=== PATIENT | male | born 1950 | race Caucasian/White ===

== ENCOUNTER 2018-05-27 07:36 | Inpatient (IN) | payer MEDICARE, MEDICAID ==
[~2018-05-27] VITALS: Ht 167.6 cm; Wt 98.7 kg
--- NOTE | 2018-05-27 07:30 | NUR ---
RESPIRATORY NOTE: Received pt from ER with trach dependent cuff, Protex size 7.0, vent settings: AC 10-500ml-40% FiO2, peep 5. Pt is tolerating well, saturates at 100%. Jamey rhonchi diminished B/S heard upon auscultation, sxn moderate amount of thick rodrigeuz yellow secretions without incidents. ABG in 30 mins. Vent is plugged into the red outlet, alarms are set and audible. No SOB or resp distress noted. Will continue to monitor pt.
[2018-05-27] MEDS ORDERED: LISINOPRIL20 MG GT (07:52)
[2018-05-27] MEDS ORDERED: VITAMIN D400 INTLU GT (07:52)
[2018-05-27] MEDS ORDERED: KEPPRA LIQ100 MG/1 M GT (07:52)
[2018-05-27] MEDS ORDERED: FERROUS SU15 MG/1 M1 GT (07:52)
[2018-05-27] MEDS ORDERED: PRO-STAT LIQUID30 ML GT (07:52)
[2018-05-27] MEDS ORDERED: MULTI-VITAMIN-1 EACH GT (07:52)
[2018-05-27] MEDS ORDERED: CLONIDINE HCL0.1 MG PO ×2 (07:52→16:23)
[2018-05-27] MEDS ORDERED: TYLENOL EXTRA500 MG ORAL (07:52)
[2018-05-27] MEDS ORDERED: VALPROIC A250 MG/5 M PO (07:52)
[2018-05-27] MEDS ORDERED: ATORVASTATIN CA20 MG GT (07:52)
[2018-05-27] MEDS ORDERED: VENTOLIN HFA18 GM INH (07:52)
[2018-05-27] MEDS ORDERED: FAMOTIDINE10 MG GT (07:52)
[2018-05-27] MEDS ORDERED: ASPIRIN-LOW81 MG ORAL (07:52)
[2018-05-27] MEDS ORDERED: SENNA8.6 M2 GT (07:52)
[2018-05-27] MEDS ORDERED: ZOFRAN4 M1 IM (07:52)
[2018-05-27] MEDS ORDERED: BACLOFEN5 MG GT (07:52)
[2018-05-27] MEDS ORDERED: FERROUS SULFAT500 G1 MC (07:52)
[2018-05-27] MEDS ORDERED: METFORMIN500 MG/5 M GT (07:52)
[2018-05-27] MEDS ORDERED: COLACE100 MG GT (07:52)
[2018-05-27] MEDS ORDERED: VITAMIN C500 M1 GT (07:52)
[2018-05-27] MEDS ORDERED: Acetaminophen 650mg/20.3ml GT PRN (08:00)
[2018-05-27] MEDS ORDERED: Albuterol ud Inhalation HHN ONE (08:00)
[2018-05-27] MEDS ORDERED: Piperacillin/Tazobactam 3.375 GM in NS 110 ML IVPB ONE (08:00)
[2018-05-27] MEDS ORDERED: Vancomycin 1 GM in NS 275 ML IV ONE (08:00)
[2018-05-27] MEDS ORDERED: Ipratropium 0.02% Inh Soln 2.5ml UD HHN ONE (08:00)
--- NOTE | 2018-05-27 08:00 | NUR ---
ED Nurse Note: Patient was brought in to ER by ambulance from [facility] due to hyperglycemia. pt non verbal and mental status unable to assess. Treach Portex 7.0 present. responds to severe pain only. skin pale and warm to touch and rectal temperture 103F.
[2018-05-27 08:10] LABS: HEMOGLOBIN 8.7 G/DL (14.2-18.0); MEAN CORPUSCULAR VOLUME 72 FL (80-99); PLATELET COUNT 294 K/UL (150-450); RED BLOOD COUNT 3.87 M/UL (4.70-6.10); RED CELL DISTRIBUTION WIDTH 17.3 % (11.6-14.8); WHITE BLOOD COUNT 19.8 K/UL (4.8-10.8)
--- NOTE | 2018-05-27 08:10 | NUR ---
ED Nurse Note: Pt has G-tube. Rt fingers have deformity. general body contracted noted.
--- NOTE | 2018-05-27 08:20 | NUR ---
ED Nurse Note: distended abdomen noted. bowel sound present on all quadrants.
[2018-05-27 08:23] LABS: ANION GAP 11 mmol/L (5-15); BLOOD UREA NITROGEN 28 mg/dL (7-18); CARBON DIOXIDE 27 MMOL/L (21-32); CHLORIDE 105 MMOL/L (98-107); CREATININE 1.3 MG/DL (0.55-1.30); SODIUM 143 MMOL/L (136-145)
--- NOTE | 2018-05-27 08:28 | Emergency Room Report ---
History of Present Illness General Chief Complaint: Abnormal Labs Source: EMS Present Illness HPI Patient presents to the emergency department today with elevated temperature and elevated glucose. Patient is full code. Patient is ventilator dependent G- tube dependent. This line mental status is poor bedridden and unable to communicate. Patient has a tracheostomy and feeding tube. Patient was noted to have a fever of 103. Glucose was critically high. Patient's prior further evaluation. Apparently patient was recently treated for UTI with Rocephin. Patient last laboratory results shows a fairly elevated white blood cell count. Paramedics are unable to provide much more history. All the history was essentially obtained from medical records. Patient's primary care physician is Dr[facility] at the shelter. No further history is available at this time. Allergies: Coded Allergies: No Known Allergies (Unverified , 05/27/18) Patient History Past Medical History: DM, HTN, CVA/TIA - Likely given contractures, other - Ventilator dependent andTube feedings Past Surgical History: other - G-tube Social History Narrative at shelter Nursing Documentation-PMH Hx Hypertension: Yes - DYSPHAGIA Hx Diabetes: Yes - TYPE 2 Hx Gastrointestinal Problems: Yes - GERD, GI HEMORRHAGE Review of Systems All Other Systems: limited - poor mental status Physical Exam Vital Signs Date Time Temp Pulse Resp B/P (MAP) Pulse Ox O2 Delivery O2 Flow Rate FiO2 05/27/18 07:21 102.9 100 27 140/82 100 Mechanical Ventilator Sp02 EP Interpretation: reviewed, normal General Appearance: alert, moderate distress, Chronically Ill, Stupor Head: atraumatic Eyes: bilateral eye normal inspection ENT: dry mucus membranes Neck: limited range of motion Respiratory: no retraction, respiratory distress, decreased breath sounds, wheezing, expiration, inspiration Cardiovascular #1: regular rate, rhythm, no edema Gastrointestinal: distended, other - g tube, decreased bowel sounds Genitourinary: no CVA tenderness Musculoskeletal: decreased range of motion Neurologic: other - unable to assess Psychiatric: other - unable to assess Skin: warm/dry Procedures Critical Care Time Critical Care Time Patient had a critical medical condition which untreated could potentially result in life or limb threatening injury. Total critical care time excluding procedures was approximately 45 minutes. Medical Decision Making Diagnostic Impression: Primary Impression: Severe sepsis Additional Impression: Pneumonia ER Course Patient presents emergency department today with altered mental status and fever. Patient was recently treated for UTI. Patient appeared to be worse with worsening fever. Patient was sent her for further evaluation. Patient also had elevated glucose. Differential diagnoses include UTI, sepsis, DKA just to name a few.Given the severity of the patient's presentation I felt this is a highly complex patient. This patient required extensive workup. Patient' s laboratory workup shows evidence of infection. Patient's chest x-ray shows questionable pneumonia. Lactic acid level was elevated. Therefore patient was given 30 mL/kg fluid bolus and lactic acid level did improve. Patient symptoms were consistent with severe sepsis. Patient will be admitted for further treatment. Case discussed with Dr. Weaver for admission. Focused sepsis exam was performed.at 12:30. Patient's blood pressure was stable. Good perfusion. Stable cardiopulmonary exam. Good capillary perfusion. Skin is warm and dry. Labs Test 05/27/18 07:57 05/27/18 08:10 05/27/18 08:20 05/27/18 09:20 White Blood Count 19.8 K/UL (4.8-10.8) Red Blood Count 3.87 M/UL (4.70-6.10) Hemoglobin 8.7 G/DL (14.2-18.0) Hematocrit 28.0 % (42.0-52.0) Mean Corpuscular Volume 72 FL (80-99) Mean Corpuscular Hemoglobin 22.4 PG (27.0-31.0) Mean Corpuscular Hemoglobin Concent 31.0 G/DL (32.0-36.0) Red Cell Distribution Width 17.3 % (11.6-14.8) Platelet Count 294 K/UL (150-450) Mean Platelet Volume 6.9 FL (6.5-10.1) Neutrophils (%) (Auto) % (45.0-75.0) Lymphocytes (%) (Auto) % (20.0-45.0) Monocytes (%) (Auto) % (1.0-10.0) Eosinophils (%) (Auto) % (0.0-3.0) Basophils (%) (Auto) % (0.0-2.0) Differential Total Cells Counted 100 Neutrophils % (Manual) 80 % (45-75) Lymphocytes % (Manual) 7 % (20-45) Monocytes % (Manual) 6 % (1-10) Eosinophils % (Manual) 1 % (0-3) Basophils % (Manual) 0 % (0-2) Band Neutrophils 6 % (0-8) Platelet Estimate Adequate Platelet Morphology Normal Polychromasia 1+ Anisocytosis 1+ Microcytosis 1+ Sodium Level 143 MMOL/L (136-145) Potassium Level 3.0 MMOL/L (3.5-5.1) Chloride Level 105 MMOL/L (98-107) Carbon Dioxide Level 27 MMOL/L (21-32) Anion Gap 11 mmol/L (5-15) Blood Urea Nitrogen 28 mg/dL (7-18) Creatinine 1.3 MG/DL (0.55-1.30) Estimat Glomerular Filtration Rate 54.6 mL/min (>60) Glucose Level 465 MG/DL (74-106) Lactic Acid Level 2.60 mmol/L (0.4-2.0) 2.20 mmol/L (0.66-2.22) Calcium Level 9.0 MG/DL (8.5-10.1) Total Bilirubin 0.2 MG/DL (0.2-1.0) Aspartate Amino Transf (AST/SGOT) 16 U/L (15-37) Alanine Aminotransferase (ALT/SGPT) 15 U/L (12-78) Alkaline Phosphatase 80 U/L (46-116) Total Creatine Kinase 63 U/L (26-308) Troponin I 0.145 ng/mL (0.000-0.056) Pro-B-Type Natriuretic Peptide 1512 pg/mL (0-125) Total Protein 7.7 G/DL (6.4-8.2) Albumin 1.8 G/DL (3.4-5.0) Globulin 5.9 g/dL Albumin/Globulin Ratio 0.3 (1.0-2.7) Lipase 203 U/L (73-393) Prothrombin Time 11.5 SEC (9.30-11.50) Prothromb Time International Ratio 1.1 (0.9-1.1) Activated Partial Thromboplast Time 23 SEC (23-33) Arterial Blood pH 7.457 (7.350-7.450) Arterial Blood Partial Pressure CO2 40.7 mmHg (35.0-45.0) Arterial Blood Partial Pressure O2 94.5 mmHg (75.0-100.0) Arterial Blood HCO3 28.1 mmol/L (22.0-26.0) Arterial Blood Oxygen Saturation 96.7 % (95-100) Arterial Blood Base Excess 3.9 (-2-2) Tommy Test Positive Urine Color Pale yellow Urine Appearance Clear Urine pH 6 (4.5-8.0) Urine Specific [place] 1.010 (1.005-1.035) Urine Protein 3+ (NEGATIVE) Urine Glucose (UA) 4+ (NEGATIVE) Urine Ketones 1+ (NEGATIVE) Urine Blood 3+ (NEGATIVE) Urine Nitrite Negative (NEGATIVE) Urine Bilirubin Negative (NEGATIVE) Urine Urobilinogen Normal MG/DL (0.0-1.0) Urine Leukocyte Esterase Negative (NEGATIVE) Urine RBC 10-15 /HPF (0 - 0) Urine WBC 0-2 /HPF (0 - 0) Urine Squamous Epithelial Cells Occasional /LPF Urine Bacteria Occasional /HPF (NONE) EKG Diagnostic Results Rate: normal Rhythm: NSR ST Segments: no acute changes Rhythm Strip Diag. Results EP Interpretation: yes Rate: 85 Rhythm: NSR, no PVC's, no ectopy Chest X-Ray Diagnostic Results Chest X-Ray Diagnostic Results : Chest X-Ray Ordered: Yes Indication: Shortness of Breath EP Interpretation: No Impression: Other - Pneumonia Last Vital Signs Date Time Temp Pulse Resp B/P (MAP) Pulse Ox O2 Delivery O2 Flow Rate FiO2 05/27/18 07:21 102.9 100 27 140/82 100 Mechanical Ventilator Status: improved Disposition: ADMITTED INPATIENT Condition: Serious Referrals: Janette Weaver MD (PCP) Campos Gomez MD May 27, 2018 08:28
--- NOTE | 2018-05-27 08:30 | NUR ---
ED Nurse Note: Redness on coccyx and Rt lateral foot noted. Pt has 1 Medium BM and it was cleaned.
[2018-05-27 08:33] LABS: INR 1.1 (0.9-1.1)
[2018-05-27 08:37] LABS: ALANINE AMINOTRANSFERASE 15 U/L (12-78); ALBUMIN 1.8 G/DL (3.4-5.0); ALBUMIN/GLOBULIN RATIO 0.3 (1.0-2.7); ALKALINE PHOSPHATASE 80 U/L (46-116); ASPARTATE AMINO TRANSFERASE 16 U/L (15-37); BILIRUBIN,TOTAL 0.2 MG/DL (0.2-1.0); CREATINE KINASE 63 U/L (26-308)
[2018-05-27 09:30] LABS: APPEARANCE,URINE CLEAR; BILIRUBIN, URINE NEGATIVE (NEGATIVE); COLOR,URINE PALE YELLOW; GLUCOSE, URINE (UA) 4+ (NEGATIVE); KETONES,URINE 1+ (NEGATIVE); LEUKOCYTE ESTERASE ,URINE NEGATIVE (NEGATIVE); NITRITE,URINE NEGATIVE (NEGATIVE); PH,URINE 6 (4.5-8.0); PROTEIN,URINE 3+ (NEGATIVE); UROBILINOGEN,URINE NORMAL MG/DL (0.0-1.0)
--- NOTE | 2018-05-27 10:05 | Diagnostic Imaging Report ---
Indication: Cough, dyspnea Technique: One view of the chest Comparison: none Findings: There is a left-sided pleural effusion. Diffuse hazy opacification of left hemithorax is likely related to such, although diffuse hazy infiltrate also possible. The right lung and pleural space are clear. Heart is mildly enlarged. The aorta is ectatic Impression: Left pleural effusion and possible left-sided diffuse parenchymal consolidation Mild cardiomegaly
--- NOTE | 2018-05-27 10:35 | NUR ---
RESPIRATORY NOTE: Trach care and oral care done without incident, changed new trach tie and trach guard. Noticed redness and small blood around the stoma, RN Olaf made aware. Pt is not in distress at this time. Will continue to monitor.
[2018-05-27 11:12] VITALS: BP 137/70
--- NOTE | 2018-05-27 12:03 | NUR ---
ED Nurse Note: Report given to MELISA Fischer.
--- NOTE | 2018-05-27 12:10 | NUR ---
ED Nurse Note: pt left department with 1 RN, 1 therapy tech, 1 RT in stable condition.
--- NOTE | 2018-05-27 12:20 | NUR ---
RESPIRATORY NOTE: Transferred pt to [facility] via bagging with ambu bag 15L 100% per MELISA Babin without incidents. Pt put back to vent with the same settings, no SOB or resp distress noted. Inform MELISA Fischer about the redness and small blood around the stoma. Ambu bag is at bedside, vent is plugged into the red outlet and alarms are set and audible. Will continue to monitor pt.
--- NOTE | 2018-05-27 12:21 | NUR ---
NURSE NOTES: Received patient from MELISA Donald. Patient VS stable at this time. Patient admitted to ER with fever of 103. Tylenol given in ER. Temperature not 98.9. BP 144/83, HR 86, 98%, and RR 20. Serum glucose 465. No coverage given in ER. Potassium 3.0. No coverage given in ER. Patient is nonverbal and nonresponsive. patient eyes open and does not track. Patient trach to ventilator with setting of AC10, TV 500, FiO2 40%, and PEEP 5. Patient's trach is reddened with slight bleeding and discharge that is yellow/green at this time. Oral and tracheal secretions are yellow/green at this time. Patient's urine was collected in ER and it was cloudy with bacteria. Patient has several pressure injuries. Patient has a right ankle DTI, left ankle and left lower leg stage 1, sacral old wound that is healed, and left elbow DTI. Patient has a lactic of 2.2. No repeat lab has been done since 0930 this morning. Will monitor patient VS and administer medications as ordered. Bed in low position with bed alarm on and call light in reach at this time.
--- NOTE | 2018-05-27 13:14 | Consultation ---
History of Present Illness General Date patient seen: May 27, 2018 Chief Complaint: Abnormal Labs Present Illness HPI 77 year old male with hx of DM, HTN, CVA, contractures, trach, Ventilator dependent and Tube feedings presented to ER with CC of elevated temperature and elevated glucose. Patient is full code. He is bedridden and unable to communicate. Patient was noted to have a fever of 103. Glucose was critically high. All the history was essentially obtained from medical records. He was found to have Left lung pneumonia and sepsis. Pt is admitted to [facility] for further evaluation and treatment. Allergies: Coded Allergies: No Known Allergies (Unverified , 05/27/18) Medication History Scheduled Amino Acids/Protein Hydrolys (Pro-Stat Liquid), 30 ML GT TWICE A DAY, (Reported) Ascorbic Acid* (Vitamin C*), 500 MG GT DAILY, (Reported) Aspirin (Aspirin EC), 81 MG ORAL DAILY, (Reported) Atorvastatin Calcium* (Atorvastatin Calcium*), 20 MG GT BEDTIME, (Reported) Docusate Sodium* (Colace*), 100 MG GT DAILY, (Reported) Famotidine (Famotidine), 20 MG ORAL QHS, (Reported) Ferrous Sulfate* (Ferrous Sulfate*), 325 MG ORAL DAILY, (Reported) Levetiracetam (Keppra), 15 ML GT DAILY, (Reported) Linagliptin (Tradjenta), 5 MG PO DAILY, (Reported) Lisinopril (Lisinopril*), 40 MG GT DAILY, (Reported) Metformin Hcl (Metformin Hcl), 1,000 MG MC BID, (Reported) Multivitamin Liquid* (Multi-Delyn*), 5 ML GT DAILY, (Reported) Sennosides/Docusate Sodium (Senna S Tablet), 2 EACH PO QHS, (Reported) Theophylline Anhydrous (Theophylline), 300 MG GT DAILY, (Reported) Topiramate* (Topamax*), 200 MG GT BID, (Reported) Valproic Acid (Valproic Acid), 10 ML GT TID, (Reported) Vitamin D (Vitamin D3), 5,000 UNITS GT DAILY, (Reported) Scheduled PRN Acetaminophen* (Acetaminophen 325MG Tablet*), 650 MG ORAL Q4H PRN for fever and mild pain , (Reported) Clonidine Hcl (Clonidine Hcl), 0.1 MG PO for For High Blood Pressure, (Reported) Ondansetron* (Zofran*), 4 MG IM Q4HR PRN for Nausea & Vomiting, (Reported) Miscellaneous Medications Baclofen (Baclofen), 20 MG GT, (Reported) Discontinued Medications Acetaminophen* (Tylenol Extra Strength*), 650 MG ORAL Q6H PRN for Mild Pain/ Temp > 100.5, (Reported) Discontinued Reason: Medication dose changed Albuterol Sulfate (Ventolin Hfa), 2 PUFFS INH EVERY 6 HOURS, (Reported) Discontinued Reason: Medication dose changed Clonidine Hcl (Clonidine Hcl), 0.1 MG PO, (Reported) Discontinued Reason: Medication dose changed Famotidine (Famotidine), 2.5 MG GT DAILY, (Reported) Discontinued Reason: Medication dose changed Ferrous Sulfate (Ferrous Sulfate), 7.5 ML GT, (Reported) Discontinued Reason: Medication dose changed Ferrous Sulfate, Dried (Ferrous Sulfate), 500 GM MC, (Reported) Discontinued Reason: Medication dose changed Metformin HCl (Metformin HCl), 1,000 MG GT, (Reported) Discontinued Reason: Medication dose changed Multivit-Min/Iron Fum/Folic AC (Lqlbo-Dpqyxtq-Shznudhg Tablet), 1 EACH GT, ( Reported) Discontinued Reason: Medication dose changed Ondansetron (Zofran), 4 MG IM Q6H PRN for Nausea & Vomiting, (Reported) Discontinued Reason: Medication dose changed Sennosides (Senna), 2 MG GT, (Reported) Discontinued Reason: Medication dose changed Sennosides (Senna), 2 MG GT, (Reported) Discontinued Reason: Medication dose changed Valproate Sodium (Valproic Acid), 10 ML PO, (Reported) Discontinued Reason: Medication dose changed Patient History Healthcare decision maker Resuscitation status Advanced Directive on File Past Medical/Surgical History Past Medical/Surgical History: (1) Diabetes mellitus (2) Vegetative state (3) Cerebrovascular accident (CVA) (4) Contracture of joint of multiple sites (5) Chronic respiratory failure Review of Systems All Other Systems: negative except mentioned in HPI Physical Exam General Appearance: cachetic Lines, tubes and drains: peripheral HEENT: normocephalic, atraumatic Neck: non-tender, normal alignment Respiratory/Chest: chest wall non-tender, normal breath sounds Breasts: no masses Cardiovascular/Chest: regularly irregular Abdomen: normal bowel sounds Genitourinary/Rectal: normal genital exam Extremities: normal range of motion Last 24 Hour Vital Signs Date Time Temp Pulse Resp B/P (MAP) Pulse Ox O2 Delivery O2 Flow Rate FiO2 05/27/18 12:20 86 17 40 05/27/18 12:05 100.0 05/27/18 11:12 82 14 137/70 98 Mechanical Ventilator 40 05/27/18 11:06 40 05/27/18 10:35 82 17 40 05/27/18 09:14 101.0 05/27/18 08:45 97 21 40 05/27/18 08:24 100 19 98 Mechanical Ventilator 40 05/27/18 08:00 98 19 Mechanical Ventilator 40 05/27/18 08:00 40 05/27/18 07:30 103 20 40 05/27/18 07:29 103 20 Mechanical Ventilator 40 05/27/18 07:21 102.9 100 27 140/82 100 Mechanical Ventilator Laboratory Tests Test 05/27/18 07:57 05/27/18 08:10 05/27/18 08:20 05/27/18 09:20 White Blood Count 19.8 K/UL (4.8-10.8) H Red Blood Count 3.87 M/UL (4.70-6.10) L Hemoglobin 8.7 G/DL (14.2-18.0) L Hematocrit 28.0 % (42.0-52.0) L Mean Corpuscular Volume 72 FL (80-99) L Mean Corpuscular Hemoglobin 22.4 PG (27.0-31.0) L Mean Corpuscular Hemoglobin Concent 31.0 G/DL (32.0-36.0) L Red Cell Distribution Width 17.3 % (11.6-14.8) H Platelet Count 294 K/UL (150-450) Mean Platelet Volume 6.9 FL (6.5-10.1) Neutrophils (%) (Auto) % (45.0-75.0) Lymphocytes (%) (Auto) % (20.0-45.0) Monocytes (%) (Auto) % (1.0-10.0) Eosinophils (%) (Auto) % (0.0-3.0) Basophils (%) (Auto) % (0.0-2.0) Differential Total Cells Counted 100 Neutrophils % (Manual) 80 % (45-75) H Lymphocytes % (Manual) 7 % (20-45) L Monocytes % (Manual) 6 % (1-10) Eosinophils % (Manual) 1 % (0-3) Basophils % (Manual) 0 % (0-2) Band Neutrophils 6 % (0-8) Platelet Estimate Adequate Platelet Morphology Normal Polychromasia 1+ Anisocytosis 1+ Microcytosis 1+ Sodium Level 143 MMOL/L (136-145) Potassium Level 3.0 MMOL/L (3.5-5.1) L Chloride Level 105 MMOL/L (98-107) Carbon Dioxide Level 27 MMOL/L (21-32) Anion Gap 11 mmol/L (5-15) Blood Urea Nitrogen 28 mg/dL (7-18) H Creatinine 1.3 MG/DL (0.55-1.30) Estimat Glomerular Filtration Rate 54.6 mL/min (>60) Glucose Level 465 MG/DL (74-106) H Lactic Acid Level 2.60 mmol/L (0.4-2.0) H 2.20 mmol/L (0.66-2.22) Calcium Level 9.0 MG/DL (8.5-10.1) Total Bilirubin 0.2 MG/DL (0.2-1.0) Aspartate Amino Transf (AST/SGOT) 16 U/L (15-37) Alanine Aminotransferase (ALT/SGPT) 15 U/L (12-78) Alkaline Phosphatase 80 U/L (46-116) Total Creatine Kinase 63 U/L (26-308) Troponin I 0.145 ng/mL (0.000-0.056) Pro-B-Type Natriuretic Peptide 1512 pg/mL (0-125) H Total Protein 7.7 G/DL (6.4-8.2) Albumin 1.8 G/DL (3.4-5.0) L Globulin 5.9 g/dL Albumin/Globulin Ratio 0.3 (1.0-2.7) L Lipase 203 U/L (73-393) Prothrombin Time 11.5 SEC (9.30-11.50) Prothromb Time International Ratio 1.1 (0.9-1.1) Activated Partial Thromboplast Time 23 SEC (23-33) Arterial Blood pH 7.457 (7.350-7.450) Arterial Blood Partial Pressure CO2 40.7 mmHg (35.0-45.0) Arterial Blood Partial Pressure O2 94.5 mmHg (75.0-100.0) Arterial Blood HCO3 28.1 mmol/L (22.0-26.0) H Arterial Blood Oxygen Saturation 96.7 % (95-100) Arterial Blood Base Excess 3.9 (-2-2) H Tommy Test Positive Urine Color Pale yellow Urine Appearance Clear Urine pH 6 (4.5-8.0) Urine Specific Royal 1.010 (1.005-1.035) Urine Protein 3+ (NEGATIVE) H Urine Glucose (UA) 4+ (NEGATIVE) H Urine Ketones 1+ (NEGATIVE) H Urine Blood 3+ (NEGATIVE) H Urine Nitrite Negative (NEGATIVE) Urine Bilirubin Negative (NEGATIVE) Urine Urobilinogen Normal MG/DL (0.0-1.0) Urine Leukocyte Esterase Negative (NEGATIVE) Urine RBC 10-15 /HPF (0 - 0) H Urine WBC 0-2 /HPF (0 - 0) Urine Squamous Epithelial Cells Occasional /LPF Urine Bacteria Occasional /HPF (NONE) Height (Feet): 5 Height (Inches): 6.00 Weight (Pounds): 155 Medications Current Medications Medications (Trade) Dose Ordered Sig/Bhupinder Route PRN Reason Start Time Stop Time Status Last Admin Dose Admin Acetaminophen (Tylenol) 1,000 mg STAT PRN GT Mild Pain/Temp > 100.5 05/27/18 08:00 06/26/18 07:59 05/27/18 08:44 Assessment/Plan Problem List: (1) Acute on chronic respiratory failure ICD Codes: J96.20 - Acute and chronic respiratory failure, unspecified whether with hypoxia or hypercapnia SNOMED: 08809118 (2) Nosocomial pneumonia ICD Codes: J18.9 - Pneumonia, unspecified organism; Y95 - Nosocomial condition SNOMED: 767307313 (3) Chronic respiratory failure ICD Codes: J96.10 - Chronic respiratory failure, unspecified whether with hypoxia or hypercapnia SNOMED: 56006587 (4) Severe sepsis ICD Codes: A41.9 - Sepsis, unspecified organism; R65.20 - Severe sepsis without septic shock SNOMED: 57206207 (5) Pneumonia ICD Codes: J18.9 - Pneumonia, unspecified organism SNOMED: 627865411 (6) Cerebrovascular accident (CVA) ICD Codes: I63.9 - Cerebral infarction, unspecified SNOMED: 788620189 (7) Vegetative state ICD Codes: R40.3 - Persistent vegetative state SNOMED: 27175180 (8) Contracture of joint of multiple sites ICD Codes: M24.50 - Contracture, unspecified joint SNOMED: 23335051, 037088864 (9) Diabetes mellitus ICD Codes: E11.9 - Type 2 diabetes mellitus without complications SNOMED: 24411956 Respiratory: monitor respiratory rate, adjust FIO2, CXR Cardiac: continue pressors, continue to monitor HR/BP Renal: F/U I&O, keep IV fluid Infectious Disease: check cultures Gastrointestinal: continue feedings/current rate Endocrine: monitor blood sugar Hematologic: monitor H/H, transfuse if hgb<8.5 Neurologic: PRN Morphine, keep patient comfortable Affect: PRN ativan Prophylaxis: Heparin Discussed with: nurses, consultants, director case management Yomi Odom MD May 27, 2018 13:14
[2018-05-27] MEDS ORDERED: Ketorolac 30mg Inj IV PRN (13:15)
[2018-05-27] MEDS ORDERED: Miralax 17gm pkt GT PRN (13:15)
[2018-05-27] MEDS ORDERED: Mylanta II UD 30ml GT PRN (13:15)
[2018-05-27] MEDS ORDERED: Albuterol/Ipratropium 3ml neb HHN PRN (13:15)
[2018-05-27] MEDS ORDERED: Morphine Sulfate 2mg/ml Inj(IV/IM USE ONLY) IVP PRN (13:15)
[2018-05-27] MEDS ORDERED: Nitroglycerin Subl 0.4mg tab SL PRN (13:15)
[2018-05-27 16:00] VITALS: BP 144/83
[2018-05-27] MEDS ORDERED: SENNA S TABLET1 EAC1 PO (16:23)
[2018-05-27] MEDS ORDERED: FERROUS SULFAT325 MG ORAL (16:23)
[2018-05-27] MEDS ORDERED: MULTI-DELYN237 ML GT (16:23)
[2018-05-27] MEDS ORDERED: VALPROIC ACID1 ML GT (16:23)
[2018-05-27] MEDS ORDERED: METFORMIN HCL5000 GM MC (16:23)
[2018-05-27] MEDS ORDERED: ZOFRAN4 M3 IM (16:23)
[2018-05-27] MEDS ORDERED: THEOPHYLLI80 MG/151 GT (16:23)
[2018-05-27] MEDS ORDERED: TOPIRAMATE100 MG GT (16:23)
[2018-05-27] MEDS ORDERED: ACETAMINOPHEN325 M1 ORAL (16:23)
[2018-05-27] MEDS ORDERED: TRADJENTA5 MG PO (16:23)
[2018-05-27] MEDS ORDERED: FAMOTIDINE20 MG ORAL (16:23)
[2018-05-27] MEDS ORDERED: NovoLOG Insulin Flexpen SUBQ SCH (16:30)
[2018-05-27] MEDS: Acetaminophen 650mg/20.3ml GT PRN (16:45)
[2018-05-27] MEDS: NovoLOG Insulin Flexpen SUBQ SCH ×2 (18:31→21:35)
--- NOTE | 2018-05-27 19:10 | NUR ---
HAND-OFF: Report given to MELISA Choi. Patient temperature elevated at this time. Tylenol has been given. Cooling blanket placed under the patient. Temperature is still elevated. Endorsed to follow up. Patient does not have an order for antibiotics at this time. Endorsed to follow up with Dr Weaver when he rounds on the patient.
--- NOTE | 2018-05-27 19:10 | NUR ---
NURSE NOTES: Received report from Jax Gates RN. Patient is awake in bed, obtunded. Sinus rhythm on nurse monitoring. No s/s of acute distress noted. Saturating well on tach-vent settings: Portex 7, AC 10, vT 500, FiO2 40%, PEEP 5. Receiving Glucerna 1.2 @ 10 cc/hr and tolerating well, goal of 65 cc/hr. Condom catheter intact and draining well. Left wrist 22g IV, intact and patent, running NS @ 100 cc/hr. Bed locked in lowest position with padded side rails up x3. Call light left within reach. Will continue to monitor.
[2018-05-27 20:00] VITALS: BP 153/92
[2018-05-27] MEDS: Heparin 5000 units/ml inj SUBQ SCH (21:36)
[2018-05-27] MEDS ORDERED: Piperacillin/Tazobactam 3.375 GM in NS 110 ML IVPB SCH (22:00)
[2018-05-27] MEDS ORDERED: Vancomycin 750mg/NS 275ml IVPB ONE ×2 (23:00)
[2018-05-28] VITALS: BP 129/69
--- NOTE | 2018-05-28 00:05 | Infectious Diseases Prog Note ---
Assessment/Plan Assessment/Plan Full consult to follow: A) 1) sepsis, aspiration pna/hcap, leukocytosis, fevers, sirs 2) pmh noted 3) allergies - nkda P) 1) zosyn and vancomycin 2) check cultures, labs and chest x-ray 3) d/w Dr. Weaver 4) thank you Subjective Allergies: Coded Allergies: No Known Allergies (Unverified , 05/27/18) Objective Vital Signs Last 24 Hour Vital Signs Date Time Temp Pulse Resp B/P (MAP) Pulse Ox O2 Delivery O2 Flow Rate FiO2 05/27/18 22:37 82 22 40 05/27/18 21:45 97.3 05/27/18 21:33 153/92 05/27/18 21:00 Mechanical Ventilator 05/27/18 20:36 89 20 40 05/27/18 20:00 102.3 94 20 153/92 (112) 99 05/27/18 20:00 40 05/27/18 19:01 92 05/27/18 19:00 90 20 40 05/27/18 17:19 Mechanical Ventilator 05/27/18 17:15 102.0 05/27/18 17:09 87 23 40 05/27/18 16:00 81 05/27/18 16:00 101.4 86 20 144/83 (103) 98 05/27/18 16:00 Mechanical Ventilator 05/27/18 14:51 77 17 40 05/27/18 12:52 73 05/27/18 12:20 86 17 40 05/27/18 12:10 100.0 90 14 141/65 100 Mechanical Ventilator 40 05/27/18 12:05 100.0 05/27/18 11:12 82 14 137/70 98 Mechanical Ventilator 40 05/27/18 11:06 40 05/27/18 10:35 82 17 40 05/27/18 09:14 101.0 05/27/18 08:45 97 21 40 05/27/18 08:24 100 19 98 Mechanical Ventilator 40 05/27/18 08:00 98 19 Mechanical Ventilator 40 05/27/18 08:00 40 05/27/18 07:30 103 20 40 05/27/18 07:29 103 20 Mechanical Ventilator 40 05/27/18 07:21 102.9 100 27 140/82 100 Mechanical Ventilator Height (Feet): 5 Height (Inches): 6.00 Weight (Pounds): 175 Laboratory Tests Test 05/27/18 07:57 05/27/18 08:10 05/27/18 08:20 05/27/18 09:20 White Blood Count 19.8 K/UL (4.8-10.8) H Red Blood Count 3.87 M/UL (4.70-6.10) L Hemoglobin 8.7 G/DL (14.2-18.0) L Hematocrit 28.0 % (42.0-52.0) L Mean Corpuscular Volume 72 FL (80-99) L Mean Corpuscular Hemoglobin 22.4 PG (27.0-31.0) L Mean Corpuscular Hemoglobin Concent 31.0 G/DL (32.0-36.0) L Red Cell Distribution Width 17.3 % (11.6-14.8) H Platelet Count 294 K/UL (150-450) Mean Platelet Volume 6.9 FL (6.5-10.1) Neutrophils (%) (Auto) % (45.0-75.0) Lymphocytes (%) (Auto) % (20.0-45.0) Monocytes (%) (Auto) % (1.0-10.0) Eosinophils (%) (Auto) % (0.0-3.0) Basophils (%) (Auto) % (0.0-2.0) Differential Total Cells Counted 100 Neutrophils % (Manual) 80 % (45-75) H Lymphocytes % (Manual) 7 % (20-45) L Monocytes % (Manual) 6 % (1-10) Eosinophils % (Manual) 1 % (0-3) Basophils % (Manual) 0 % (0-2) Band Neutrophils 6 % (0-8) Platelet Estimate Adequate Platelet Morphology Normal Polychromasia 1+ Anisocytosis 1+ Microcytosis 1+ Sodium Level 143 MMOL/L (136-145) Potassium Level 3.0 MMOL/L (3.5-5.1) L Chloride Level 105 MMOL/L (98-107) Carbon Dioxide Level 27 MMOL/L (21-32) Anion Gap 11 mmol/L (5-15) Blood Urea Nitrogen 28 mg/dL (7-18) H Creatinine 1.3 MG/DL (0.55-1.30) Estimat Glomerular Filtration Rate 54.6 mL/min (>60) Glucose Level 465 MG/DL (74-106) H Lactic Acid Level 2.60 mmol/L (0.4-2.0) H 2.20 mmol/L (0.66-2.22) Calcium Level 9.0 MG/DL (8.5-10.1) Total Bilirubin 0.2 MG/DL (0.2-1.0) Aspartate Amino Transf (AST/SGOT) 16 U/L (15-37) Alanine Aminotransferase (ALT/SGPT) 15 U/L (12-78) Alkaline Phosphatase 80 U/L (46-116) Total Creatine Kinase 63 U/L (26-308) Troponin I 0.145 ng/mL (0.000-0.056) Pro-B-Type Natriuretic Peptide 1512 pg/mL (0-125) H Total Protein 7.7 G/DL (6.4-8.2) Albumin 1.8 G/DL (3.4-5.0) L Globulin 5.9 g/dL Albumin/Globulin Ratio 0.3 (1.0-2.7) L Lipase 203 U/L (73-393) Prothrombin Time 11.5 SEC (9.30-11.50) Prothromb Time International Ratio 1.1 (0.9-1.1) Activated Partial Thromboplast Time 23 SEC (23-33) Arterial Blood pH 7.457 (7.350-7.450) Arterial Blood Partial Pressure CO2 40.7 mmHg (35.0-45.0) Arterial Blood Partial Pressure O2 94.5 mmHg (75.0-100.0) Arterial Blood HCO3 28.1 mmol/L (22.0-26.0) H Arterial Blood Oxygen Saturation 96.7 % (95-100) Arterial Blood Base Excess 3.9 (-2-2) H Tommy Test Positive Urine Color Pale yellow Urine Appearance Clear Urine pH 6 (4.5-8.0) Urine Specific [facility] [place] 1.010 (1.005-1.035) Urine Protein 3+ (NEGATIVE) H Urine Glucose (UA) 4+ (NEGATIVE) H Urine Ketones 1+ (NEGATIVE) H Urine Blood 3+ (NEGATIVE) H Urine Nitrite Negative (NEGATIVE) Urine Bilirubin Negative (NEGATIVE) Urine Urobilinogen Normal MG/DL (0.0-1.0) Urine Leukocyte Esterase Negative (NEGATIVE) Urine RBC 10-15 /HPF (0 - 0) H Urine WBC 0-2 /HPF (0 - 0) Urine Squamous Epithelial Cells Occasional /LPF Urine Bacteria Occasional /HPF (NONE) Current Medications Medications (Trade) Dose Ordered Sig/Bhupinder Route PRN Reason Start Time Stop Time Status Last Admin Dose Admin Acetaminophen (Tylenol) 650 mg Q4H PRN GT fever 05/27/18 13:15 06/26/18 13:14 05/27/18 16:45 Al Hydroxide/Mg Hydroxide (Mylanta II) 30 ml Q6H PRN GT dyspepsia 05/27/18 13:15 06/26/18 13:14 Albuterol/ Ipratropium (Albuterol/ Ipratropium) 3 ml Q4H PRN HHN Shortness of Breath 05/27/18 13:15 06/01/18 13:14 Clonidine HCl (Catapres Tab) 0.1 mg EVERY 12 HOURS GT 05/27/18 21:00 06/26/18 20:59 05/27/18 21:33 Clonidine HCl (Catapres Tab) 0.1 mg Q4H PRN GT sbp more than 160 05/27/18 13:15 06/26/18 13:14 Dextrose (Dextrose 50%) 25 ml Q30M PRN IV Hypoglycemia 05/27/18 13:15 06/26/18 13:14 Dextrose (Dextrose 50%) 50 ml Q30M PRN IV Hypoglycemia 05/27/18 13:15 06/26/18 13:14 Heparin Sodium (Porcine) (Heparin 5000 units/ml) 5,000 units EVERY 12 HOURS SUBQ 05/27/18 21:00 06/26/18 20:59 05/27/18 21:36 Insulin Aspart (NovoLOG) Q4HR SUBQ 05/27/18 18:00 06/26/18 17:59 05/27/18 21:35 Ketorolac Tromethamine (Toradol 30mg) 30 mg Q6H PRN IV moderate pain 4-6 05/27/18 13:15 06/01/18 13:14 Levetiracetam (Keppra) 1,500 mg DAILY GT 05/28/18 09:00 06/27/18 08:59 Morphine Sulfate (Morphine Sulfate) 2 mg Q4H PRN IVP severe pain 7-10 05/27/18 13:15 06/03/18 13:14 Nitroglycerin (Ntg) 0.4 mg Q5M X 3 DOSES PRN SL Prn Chest Pain 05/27/18 13:15 06/26/18 13:14 Ondansetron HCl (Zofran) 4 mg Q6H PRN IVP Nausea & Vomiting 05/27/18 13:15 06/26/18 13:14 Piperacillin Sod/ Tazobactam Sod 3.375 gm/Sodium Chloride 110 ml @ 27.5 mls/hr Q8H IVPB 05/28/18 02:00 06/04/18 01:59 Polyethylene Glycol (Miralax) 17 gm HSPRN PRN GT Constipation 05/27/18 13:15 06/26/18 13:14 Sodium Chloride 1,000 ml @ 100 mls/hr Q10H IVLG 05/27/18 13:12 06/26/18 13:11 05/27/18 23:01 Temazepam (Restoril) 15 mg HSPRN PRN GT Insomnia 05/27/18 13:15 06/03/18 13:14 Vancomycin HCl (Vanco rx to dose) 1 ea DAILY PRN MISC Per rx protocol 05/27/18 21:30 06/26/18 21:29 Vancomycin HCl 750 mg/Sodium Chloride 275 ml @ 183.333 mls/hr ONCE ONCE IVPB 05/27/18 23:00 05/28/18 00:29 05/27/18 22:45 Vancomycin HCl/ Dextrose 275 ml @ 183.333 mls/hr Q24H IVPB 05/28/18 20:00 06/02/18 19:59 Raoul Leigh MD May 28, 2018 00:05
[2018-05-28] MEDS: NovoLOG Insulin Flexpen SUBQ SCH ×6 (00:58→20:28)
[2018-05-28] MEDS: Piperacillin/Tazobactam 3.375 GM in NS 110 ML IVPB SCH ×3 (02:00→18:00)
[2018-05-28 04:00] VITALS: BP 139/77
--- NOTE | 2018-05-28 05:20 | NUR ---
NURSE NOTES: Made Dr. Meg MD aware of patient having 5 beats of vtach for 3 seconds. Currently awaiting response. Vitals WNL. Patient is asymptomatic. Will continue to monitor.
[2018-05-28 05:43] LABS: HEMATOCRIT 24.4 % (42.0-52.0); HEMOGLOBIN 7.3 G/DL (14.2-18.0); MEAN CORPUSCULAR VOLUME 74 FL (80-99); PLATELET COUNT 291 K/UL (150-450); RED CELL DISTRIBUTION WIDTH 17.4 % (11.6-14.8); WHITE BLOOD COUNT 18.5 K/UL (4.8-10.8)
[2018-05-28 06:23] LABS: ALANINE AMINOTRANSFERASE 24 U/L (12-78); ALBUMIN 1.6 G/DL (3.4-5.0); ALBUMIN/GLOBULIN RATIO 0.3 (1.0-2.7); ALKALINE PHOSPHATASE 60 U/L (46-116); ANION GAP 11 mmol/L (5-15); ASPARTATE AMINO TRANSFERASE 26 U/L (15-37); BILIRUBIN,TOTAL 0.1 MG/DL (0.2-1.0); BLOOD UREA NITROGEN 21 mg/dL (7-18); CALCIUM 8.1 MG/DL (8.5-10.1); CARBON DIOXIDE 25 MMOL/L (21-32); CHLORIDE 111 MMOL/L (98-107); CHOLESTEROL 66 MG/DL (< 200); CREATININE 0.8 MG/DL (0.55-1.30); HDL CHOLESTEROL 23 MG/DL (40-60); POTASSIUM 3.2 MMOL/L (3.5-5.1); SODIUM 147 MMOL/L (136-145); TRIGLYCERIDES 126 MG/DL (30-150)
--- NOTE | 2018-05-28 06:34 | NUR ---
NURSE NOTES: Made Dr. Meg MD aware of AM labs. Awaiting response.
--- NOTE | 2018-05-28 07:10 | NUR ---
HAND-OFF: Report given to Jas Romero RN.
[2018-05-28 08:00] VITALS: BP 138/72
[2018-05-28] MEDS: levETIRAcetam 500mg/5ml Liquid GT SCH (08:20)
[2018-05-28] MEDS: Heparin 5000 units/ml inj SUBQ SCH ×2 (08:20→20:26)
--- NOTE | 2018-05-28 09:54 | NUR ---
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 HYPERGLYCEMIA VS: BP 140/82, P 100, T 103.0, RR 27, SpO2 100 on VENT AC 10, TV 500, PEEP 5.0 FiO2 40 WBC 19.8, RBC 3.87, Hgb 8.7, Hct 28.0, Na 147, K 3.2, BUN 28, TROPONIN I 0.145 CXR Impression: Left pleural effusion and possible left-sided diffuse parenchymal consolidation. IS: NOVOLOG SUBQ VANCOMYCIN 275ml IVPB K-DUR 40meq GT ADMITTED TO SDU RETURN TO: [facility]
[2018-05-28] MEDS ORDERED: Lidocaine 1% Plain 30 ml INJ PRN (10:30)
[2018-05-28] MEDS ORDERED: Heparin1,000 units/500ml Premix(Conc:2 units/ml) IV PRN (10:30)
--- NOTE | 2018-05-28 11:17 | Pulmonolgy Critical Care Note ---
Critical Care - Asmt/Plan Problems: (1) Acute on chronic respiratory failure (2) Sepsis (3) Nosocomial pneumonia (4) Severe sepsis (5) Pneumonia (6) Vegetative state (7) Contracture of joint of multiple sites (8) Chronic respiratory failure (9) Diabetes mellitus (10) Cerebrovascular accident (CVA) Respiratory: monitor respiratory rate, adjust FIO2, CXR Cardiac: continue pressors, continue to monitor HR/BP Renal: F/U I&O, check electrolytes Infectious Disease: check cultures, continue antibiotics Gastrointestinal: hold feedings Endocrine: check TSH Hematologic: transfuse if hgb<8.5 Neurologic: PRN Ativan, keep patient comfortable Affect: PRN ativan Prophylaxis: Protonix, Heparin Notes Reviewed: cardio Discussed with: nurses, consultants, 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 - Objective Last 24 Hour Vital Signs Date Time Temp Pulse Resp B/P (MAP) Pulse Ox O2 Delivery O2 Flow Rate FiO2 05/28/18 10:51 82 16 40 05/28/18 09:05 78 18 40 05/28/18 08:25 139/72 05/28/18 08:00 Mechanical Ventilator 05/28/18 08:00 40 05/28/18 08:00 97.9 66 15 138/72 (94) 100 05/28/18 07:48 65 05/28/18 07:27 68 16 40 05/28/18 04:50 80 16 40 05/28/18 04:00 Mechanical Ventilator 05/28/18 04:00 98.0 69 15 139/77 (97) 96 05/28/18 04:00 40 05/28/18 03:29 70 16 40 05/28/18 03:27 72 05/28/18 00:52 80 20 40 05/28/18 00:00 99.3 64 14 129/69 (89) 100 05/28/18 00:00 Mechanical Ventilator 05/27/18 23:25 69 05/27/18 22:37 82 22 40 05/27/18 21:45 97.3 05/27/18 21:33 153/92 05/27/18 21:00 Mechanical Ventilator 05/27/18 20:36 89 20 40 05/27/18 20:00 102.3 94 20 153/92 (112) 99 05/27/18 20:00 40 05/27/18 19:01 92 05/27/18 19:00 90 20 40 05/27/18 17:19 Mechanical Ventilator 05/27/18 17:15 102.0 05/27/18 17:09 87 23 40 05/27/18 16:00 81 05/27/18 16:00 101.4 86 20 144/83 (103) 98 05/27/18 16:00 Mechanical Ventilator 05/27/18 14:51 77 17 40 05/27/18 12:52 73 05/27/18 12:20 86 17 40 05/27/18 12:10 100.0 90 14 141/65 100 Mechanical Ventilator 40 05/27/18 12:05 100.0 Status: awake Condition: critical HEENT: atraumatic Neck: full ROM Lungs: chest wall tender Heart: HR/BP unstable Abdomen: non-tender, feeding tube Extremities: no C/C/E, edema Decubiti: location Accucheck: 355 Critical Care - Subjective ROS Limited/Unobtainable: No Condition: critical FI02: 40 Vent Support Breath Rate: 10 Vent Support Mode: AC Vent Tidal Volume: 500 Sputum Amount: Small PEEP: 5.0 PIP: 23 Tube Feeding Amount: 40 I&O: Intake and Output 05/27/18 05/28/18 19:00 07:00 Intake Total 4755 ml 1525.76054 ml Output Total 1100 ml 550 ml Balance 3655 ml 975.99758 ml Intake Oral 0 ml Free Water 50 ml 50 ml IV Total 4685 ml 1155.19733 ml Tube Feeding 20 ml 320 ml Output Urine Total 1100 ml 550 ml # Bowel Movements 9 2 CXR: Laboratory Tests Test 05/28/18 03:40 White Blood Count 18.5 K/UL (4.8-10.8) H Red Blood Count 3.30 M/UL (4.70-6.10) L Hemoglobin 7.3 G/DL (14.2-18.0) L Hematocrit 24.4 % (42.0-52.0) L Mean Corpuscular Volume 74 FL (80-99) L Mean Corpuscular Hemoglobin 22.2 PG (27.0-31.0) L Mean Corpuscular Hemoglobin Concent 30.0 G/DL (32.0-36.0) L Red Cell Distribution Width 17.4 % (11.6-14.8) H Platelet Count 291 K/UL (150-450) Mean Platelet Volume 7.7 FL (6.5-10.1) Neutrophils (%) (Auto) % (45.0-75.0) Lymphocytes (%) (Auto) % (20.0-45.0) Monocytes (%) (Auto) % (1.0-10.0) Eosinophils (%) (Auto) % (0.0-3.0) Basophils (%) (Auto) % (0.0-2.0) Differential Total Cells Counted 100 Neutrophils % (Manual) 81 % (45-75) H Lymphocytes % (Manual) 9 % (20-45) L Monocytes % (Manual) 8 % (1-10) Eosinophils % (Manual) 2 % (0-3) Basophils % (Manual) 0 % (0-2) Band Neutrophils 0 % (0-8) Platelet Estimate Adequate Platelet Morphology Normal Polychromasia 1+ Hypochromasia 1+ Anisocytosis 1+ Microcytosis 1+ Sodium Level 147 MMOL/L (136-145) H Potassium Level 3.2 MMOL/L (3.5-5.1) L Chloride Level 111 MMOL/L (98-107) H Carbon Dioxide Level 25 MMOL/L (21-32) Anion Gap 11 mmol/L (5-15) Blood Urea Nitrogen 21 mg/dL (7-18) H Creatinine 0.8 MG/DL (0.55-1.30) Estimat Glomerular Filtration Rate > 60 mL/min (>60) Glucose Level 296 MG/DL (74-106) #H Hemoglobin A1c 8.7 % (4.3-6.0) H Calcium Level 8.1 MG/DL (8.5-10.1) L Total Bilirubin 0.1 MG/DL (0.2-1.0) L Aspartate Amino Transf (AST/SGOT) 26 U/L (15-37) Alanine Aminotransferase (ALT/SGPT) 24 U/L (12-78) Alkaline Phosphatase 60 U/L (46-116) Total Protein 6.7 G/DL (6.4-8.2) Albumin 1.6 G/DL (3.4-5.0) L Globulin 5.1 g/dL Albumin/Globulin Ratio 0.3 (1.0-2.7) L Triglycerides Level 126 MG/DL (30-150) Cholesterol Level 66 MG/DL (< 200) LDL Cholesterol 23 mg/dL (<100) HDL Cholesterol 23 MG/DL (40-60) L Cholesterol/HDL Ratio 2.9 (3.3-4.4) L Thyroid Stimulating Hormone (TSH) 2.492 uiU/mL (0.358-3.740) Yomi Odom MD May 28, 2018 11:17
--- NOTE | 2018-05-28 11:52 | NUR ---
RD ASSESSMENT & RECOMMENDATIONS SEE CARE ACTIVITY FOR COMPLETE ASSESSMENT DAILY ESTIMATED NEEDS: Needs based on DM, wound, critical care 68.6kg adj 22-30 kcals/kg 1632-4203 total kcals 1.25-2 g protein/kg 86-137 g total protein 25-30 mL/kg 2192-3641 total fluid mLs NUTRITION DIAGNOSIS: 1) Swallowing difficulty r/t respiratory status as evidenced by pt is vent dep via trach, on GT feeds 2) Altered nutrition related lab values r/t diabetes as evidenced by elev Uglu on adm (4+), elev BG (200's-400's) and elev accu checks (200's-300's). 3) Increased kcal and pro needs r/t wound healing as evidenced by pt w/ multiple DTPI's and partial thickness wounds. CURRENT TF: Glucerna 1.2 @65ml/hr x24 hrs ENTERAL NUTRITION RECOMMENDATIONS: Glucerna 1.2 @55ml x24 hrs + Prosource x1 pack daily to provide 1320ml, 1584 kcal, 79g + 11g pro, 1063ml free H2O - REC TO INCREASE RUN TIME AND DECREASE TF RATE as above - Add prosource 1 pack daily to better meet est pro needs - Flush per , HOB over 30 degrees ADDITIONAL RECOMMENDATIONS: 1) REC LONG ACTING INSULIN FOR IMPROVED GLYCEMIC CONTROL 2) Calibrated bed scale wts 3) Wound care: PIPE BID + VIT C 250mg daily 4) Monitor lytes daily, replete as needed
[2018-05-28 12:00] VITALS: BP 136/75
--- NOTE | 2018-05-28 12:00 | NUR ---
NURSE NOTES: Obtained telephone consent from patient's brother, Boby Monique. Brother consented to have PICC inserted and for 2 units of PRBC transfused. Second nurse to verify, MELISA Rodriguez. Noted. Consents is in chart. Will continue to monitor patient.
--- NOTE | 2018-05-28 12:00 | NUR ---
NURSE NOTES: Microbiology has reported positive blood cultures report to Dr. Leigh. Charge nurse aware. Will continue to monitor patient.
--- NOTE | 2018-05-28 15:49 | Diagnostic Imaging Report ---
Indications: Needs long-term IV access Technique: Procedure performed at bedside. Procedural timeout performed. Ultrasound confirms patent compressible right brachial vein. Total sterile technique, including sterile probe cover and sterile gel, sterile gloves, hand hygiene, hat, mask,, sterile gown, large sterile drape, and preparation with 2% chlorhexidine utilized. Local anesthesia with 1% lidocaine. Under real-time ultrasound guidance, puncture brachial vein using 21-gauge needle, passage 0.018 guidewire, exchange for 4 Uzbek peel-away sheath. The guidewire would not pass centrally. Attempts made at manipulating catheter and guidewire, successful 4 [place] Bard dual-lumen power PICC cut to 20 cm. It was inserted through the peel-away sheath. Peel-away sheath and guidewire removed. Catheter fixed to the skin. The catheter would not aspirate, so it was withdrawn about 2 cm, which resulted in successful aspiration Both catheter ports aspirated and flushed. Patient tolerated procedure well, without immediate complication. Followup chest x-ray obtained, documents catheter tip position at the level of the right axillary vein Impression: Bedside placement of right arm PICC under sonographic guidance, as described above. Note inability to pass catheter and guidewire centrally. Catheter needed to be cut short, suitable therefore only for use as a midline
[2018-05-28 16:00] VITALS: BP 142/75
--- NOTE | 2018-05-28 16:12 | Consultation ---
History of Present Illness General Chief Complaint: Abnormal Labs Present Illness Allergies: Coded Allergies: No Known Allergies (Unverified , 05/27/18) Medication History Scheduled Amino Acids/Protein Hydrolys (Pro-Stat Liquid), 30 ML GT TWICE A DAY, (Reported) Ascorbic Acid* (Vitamin C*), 500 MG GT DAILY, (Reported) Aspirin (Aspirin EC), 81 MG ORAL DAILY, (Reported) Atorvastatin Calcium* (Atorvastatin Calcium*), 20 MG GT BEDTIME, (Reported) Docusate Sodium* (Colace*), 100 MG GT DAILY, (Reported) Famotidine (Famotidine), 20 MG ORAL QHS, (Reported) Ferrous Sulfate* (Ferrous Sulfate*), 325 MG ORAL DAILY, (Reported) Levetiracetam (Keppra), 15 ML GT DAILY, (Reported) Linagliptin (Tradjenta), 5 MG PO DAILY, (Reported) Lisinopril (Lisinopril*), 40 MG GT DAILY, (Reported) Metformin Hcl (Metformin Hcl), 1,000 MG MC BID, (Reported) Multivitamin Liquid* (Multi-Delyn*), 5 ML GT DAILY, (Reported) Sennosides/Docusate Sodium (Senna S Tablet), 2 EACH PO QHS, (Reported) Theophylline Anhydrous (Theophylline), 300 MG GT DAILY, (Reported) Topiramate* (Topamax*), 200 MG GT BID, (Reported) Valproic Acid (Valproic Acid), 10 ML GT TID, (Reported) Vitamin D (Vitamin D3), 5,000 UNITS GT DAILY, (Reported) Scheduled PRN Acetaminophen* (Acetaminophen 325MG Tablet*), 650 MG ORAL Q4H PRN for fever and mild pain , (Reported) Clonidine Hcl (Clonidine Hcl), 0.1 MG PO for For High Blood Pressure, (Reported) Ondansetron* (Zofran*), 4 MG IM Q4HR PRN for Nausea & Vomiting, (Reported) Miscellaneous Medications Baclofen (Baclofen), 20 MG GT, (Reported) Discontinued Medications Acetaminophen* (Tylenol Extra Strength*), 650 MG ORAL Q6H PRN for Mild Pain/ Temp > 100.5, (Reported) Discontinued Reason: Medication dose changed Albuterol Sulfate (Ventolin Hfa), 2 PUFFS INH EVERY 6 HOURS, (Reported) Discontinued Reason: Medication dose changed Clonidine Hcl (Clonidine Hcl), 0.1 MG PO, (Reported) Discontinued Reason: Medication dose changed Famotidine (Famotidine), 2.5 MG GT DAILY, (Reported) Discontinued Reason: Medication dose changed Ferrous Sulfate (Ferrous Sulfate), 7.5 ML GT, (Reported) Discontinued Reason: Medication dose changed Ferrous Sulfate, Dried (Ferrous Sulfate), 500 GM MC, (Reported) Discontinued Reason: Medication dose changed Metformin HCl (Metformin HCl), 1,000 MG GT, (Reported) Discontinued Reason: Medication dose changed Multivit-Min/Iron Fum/Folic AC (Ftjzj-[id number]-Jertffmt Tablet), 1 EACH GT, ( Reported) Discontinued Reason: Medication dose changed Ondansetron (Zofran), 4 MG IM Q6H PRN for Nausea & Vomiting, (Reported) Discontinued Reason: Medication dose changed Sennosides (Senna), 2 MG GT, (Reported) Discontinued Reason: Medication dose changed Sennosides (Senna), 2 MG GT, (Reported) Discontinued Reason: Medication dose changed Valproate Sodium (Valproic Acid), 10 ML PO, (Reported) Discontinued Reason: Medication dose changed Patient History Healthcare decision maker Resuscitation status Full Code Advanced Directive on File No Physical Exam Last 24 Hour Vital Signs Date Time Temp Pulse Resp B/P (MAP) Pulse Ox O2 Delivery O2 Flow Rate FiO2 05/28/18 12:00 98.2 73 17 136/75 (95) 100 05/28/18 12:00 68 05/28/18 12:00 Mechanical Ventilator 05/28/18 12:00 40 05/28/18 10:51 82 16 40 05/28/18 09:05 78 18 40 05/28/18 08:25 139/72 05/28/18 08:00 Mechanical Ventilator 05/28/18 08:00 40 05/28/18 08:00 97.9 66 15 138/72 (94) 100 05/28/18 07:48 65 05/28/18 07:27 68 16 40 05/28/18 04:50 80 16 40 05/28/18 04:00 Mechanical Ventilator 05/28/18 04:00 98.0 69 15 139/77 (97) 96 05/28/18 04:00 40 05/28/18 03:29 70 16 40 05/28/18 03:27 72 05/28/18 00:52 80 20 40 05/28/18 00:00 99.3 64 14 129/69 (89) 100 05/28/18 00:00 Mechanical Ventilator 05/27/18 23:25 69 05/27/18 22:37 82 22 40 05/27/18 21:45 97.3 05/27/18 21:33 153/92 05/27/18 21:00 Mechanical Ventilator 05/27/18 20:36 89 20 40 05/27/18 20:00 102.3 94 20 153/92 (112) 99 05/27/18 20:00 40 05/27/18 19:01 92 05/27/18 19:00 90 20 40 05/27/18 17:19 Mechanical Ventilator 05/27/18 17:15 102.0 05/27/18 17:09 87 23 40 Intake and Output 05/27/18 05/28/18 19:00 07:00 Intake Total 4755 ml 1525.09885 ml Output Total 1100 ml 550 ml Balance 3655 ml 975.02463 ml Intake Oral 0 ml Free Water 50 ml 50 ml IV Total 4685 ml 1155.15370 ml Tube Feeding 20 ml 320 ml Output Urine Total 1100 ml 550 ml # Bowel Movements 9 2 Laboratory Tests Test 05/28/18 03:40 White Blood Count 18.5 K/UL (4.8-10.8) H Red Blood Count 3.30 M/UL (4.70-6.10) L Hemoglobin 7.3 G/DL (14.2-18.0) L Hematocrit 24.4 % (42.0-52.0) L Mean Corpuscular Volume 74 FL (80-99) L Mean Corpuscular Hemoglobin 22.2 PG (27.0-31.0) L Mean Corpuscular Hemoglobin Concent 30.0 G/DL (32.0-36.0) L Red Cell Distribution Width 17.4 % (11.6-14.8) H Platelet Count 291 K/UL (150-450) Mean Platelet Volume 7.7 FL (6.5-10.1) Neutrophils (%) (Auto) % (45.0-75.0) Lymphocytes (%) (Auto) % (20.0-45.0) Monocytes (%) (Auto) % (1.0-10.0) Eosinophils (%) (Auto) % (0.0-3.0) Basophils (%) (Auto) % (0.0-2.0) Differential Total Cells Counted 100 Neutrophils % (Manual) 81 % (45-75) H Lymphocytes % (Manual) 9 % (20-45) L Monocytes % (Manual) 8 % (1-10) Eosinophils % (Manual) 2 % (0-3) Basophils % (Manual) 0 % (0-2) Band Neutrophils 0 % (0-8) Platelet Estimate Adequate Platelet Morphology Normal Polychromasia 1+ Hypochromasia 1+ Anisocytosis 1+ Microcytosis 1+ Sodium Level 147 MMOL/L (136-145) H Potassium Level 3.2 MMOL/L (3.5-5.1) L Chloride Level 111 MMOL/L (98-107) H Carbon Dioxide Level 25 MMOL/L (21-32) Anion Gap 11 mmol/L (5-15) Blood Urea Nitrogen 21 mg/dL (7-18) H Creatinine 0.8 MG/DL (0.55-1.30) Estimat Glomerular Filtration Rate > 60 mL/min (>60) Glucose Level 296 MG/DL (74-106) #H Hemoglobin A1c 8.7 % (4.3-6.0) H Calcium Level 8.1 MG/DL (8.5-10.1) L Total Bilirubin 0.1 MG/DL (0.2-1.0) L Aspartate Amino Transf (AST/SGOT) 26 U/L (15-37) Alanine Aminotransferase (ALT/SGPT) 24 U/L (12-78) Alkaline Phosphatase 60 U/L (46-116) Total Protein 6.7 G/DL (6.4-8.2) Albumin 1.6 G/DL (3.4-5.0) L Globulin 5.1 g/dL Albumin/Globulin Ratio 0.3 (1.0-2.7) L Triglycerides Level 126 MG/DL (30-150) Cholesterol Level 66 MG/DL (< 200) LDL Cholesterol 23 mg/dL (<100) HDL Cholesterol 23 MG/DL (40-60) L Cholesterol/HDL Ratio 2.9 (3.3-4.4) L Thyroid Stimulating Hormone (TSH) 2.492 uiU/mL (0.358-3.740) Height (Feet): 5 Height (Inches): 6.00 Weight (Pounds): 175 Medications Current Medications Medications (Trade) Dose Ordered Sig/Bhupinder Route PRN Reason Start Time Stop Time Status Last Admin Dose Admin Acetaminophen (Tylenol) 650 mg Q4H PRN GT fever 05/27/18 13:15 06/26/18 13:14 05/27/18 16:45 Al Hydroxide/Mg Hydroxide (Mylanta II) 30 ml Q6H PRN GT dyspepsia 05/27/18 13:15 06/26/18 13:14 Albuterol/ Ipratropium (Albuterol/ Ipratropium) 3 ml Q4H PRN HHN Shortness of Breath 05/27/18 13:15 06/01/18 13:14 Chlorhexidine Gluconate (Jasmin-Hex 2%) 1 applic DAILY@2000 TOPIC 05/28/18 20:00 06/27/18 19:59 Clonidine HCl (Catapres Tab) 0.1 mg EVERY 12 HOURS GT 05/27/18 21:00 06/26/18 20:59 05/28/18 08:25 Clonidine HCl (Catapres Tab) 0.1 mg Q4H PRN GT sbp more than 160 05/27/18 13:15 06/26/18 13:14 Dextrose (Dextrose 50%) 25 ml Q30M PRN IV Hypoglycemia 05/27/18 13:15 06/26/18 13:14 Dextrose (Dextrose 50%) 50 ml Q30M PRN IV Hypoglycemia 05/27/18 13:15 06/26/18 13:14 Heparin Sodium (Porcine) (Heparin 5000 units/ml) 5,000 units EVERY 12 HOURS SUBQ 05/27/18 21:00 06/26/18 20:59 05/27/18 21:36 Heparin Sodium/ Sodium Chloride (Heparin 1000 units/500ml Premix) 1,000 unit ONCE PRN IV PICC 05/28/18 10:30 05/28/18 23:59 Insulin Aspart (NovoLOG) Q4HR SUBQ 05/27/18 18:00 06/26/18 17:59 05/28/18 13:10 Ketorolac Tromethamine (Toradol 30mg) 30 mg Q6H PRN IV moderate pain 4-6 05/27/18 13:15 06/01/18 13:14 Levetiracetam (Keppra) 1,500 mg DAILY GT 05/28/18 09:00 06/27/18 08:59 05/28/18 08:20 Lidocaine HCl (Xylocaine 1% 30ml) 30 ml ONCE PRN INJ picc 05/28/18 10:30 05/28/18 23:59 Morphine Sulfate (Morphine Sulfate) 2 mg Q4H PRN IVP severe pain 7-10 05/27/18 13:15 06/03/18 13:14 Nitroglycerin (Ntg) 0.4 mg Q5M X 3 DOSES PRN SL Prn Chest Pain 05/27/18 13:15 06/26/18 13:14 Ondansetron HCl (Zofran) 4 mg Q6H PRN IVP Nausea & Vomiting 05/27/18 13:15 06/26/18 13:14 Piperacillin Sod/ Tazobactam Sod 3.375 gm/Sodium Chloride 110 ml @ 27.5 mls/hr Q8H IVPB 05/28/18 02:00 06/04/18 01:59 05/28/18 10:32 Polyethylene Glycol (Miralax) 17 gm HSPRN PRN GT Constipation 05/27/18 13:15 06/26/18 13:14 Sodium Chloride 1,000 ml @ 100 mls/hr Q10H IVLG 05/27/18 13:12 06/26/18 13:11 05/28/18 09:12 Temazepam (Restoril) 15 mg HSPRN PRN GT Insomnia 05/27/18 13:15 06/03/18 13:14 Vancomycin HCl (Vanco rx to dose) 1 ea DAILY PRN MISC Per rx protocol 05/27/18 21:30 06/26/18 21:29 Vancomycin HCl/ Dextrose 275 ml @ 183.333 mls/hr Q24H IVPB 05/28/18 20:00 06/02/18 19:59 Assessment/Plan Assessment/Plan Hematology Consultation Date patient seen: May 28, 2018 Chief Complaint: Abnormal Labs REQ MD: Janette Weaver DOS: 05/28/18 ID 77 year old male with hx of DM, HTN, CVA, contractures, trach, Ventilator dependent and Tube feedings presented to ER with CC of elevated temperature and elevated glucose. Patient is full code. He is bedridden and unable to communicate. Patient was noted to have a fever of 103. Glucose was critically high. All the history was essentially obtained from medical records. He was found to have Left lung pneumonia and sepsis. Pt is admitted to [facility] for further evaluation and treatment. Allergies: No Known Allergies (Unverified , 05/27/18) Medication History Scheduled Amino Acids/Protein Hydrolys (Pro-Stat Liquid), 30 ML GT TWICE A DAY, (Reported) Ascorbic Acid* (Vitamin C*), 500 MG GT DAILY, (Reported) Aspirin (Aspirin EC), 81 MG ORAL DAILY, (Reported) Atorvastatin Calcium* (Atorvastatin Calcium*), 20 MG GT BEDTIME, (Reported) Docusate Sodium* (Colace*), 100 MG GT DAILY, (Reported) Famotidine (Famotidine), 20 MG ORAL QHS, (Reported) Ferrous Sulfate* (Ferrous Sulfate*), 325 MG ORAL DAILY, (Reported) Levetiracetam (Keppra), 15 ML GT DAILY, (Reported) Linagliptin (Tradjenta), 5 MG PO DAILY, (Reported) Lisinopril (Lisinopril*), 40 MG GT DAILY, (Reported) Metformin Hcl (Metformin Hcl), 1,000 MG MC BID, (Reported) Multivitamin Liquid* (Multi-Delyn*), 5 ML GT DAILY, (Reported) Sennosides/Docusate Sodium (Senna S Tablet), 2 EACH PO QHS, (Reported) Theophylline Anhydrous (Theophylline), 300 MG GT DAILY, (Reported) Topiramate* (Topamax*), 200 MG GT BID, (Reported) Valproic Acid (Valproic Acid), 10 ML GT TID, (Reported) Vitamin D (Vitamin D3), 5,000 UNITS GT DAILY, (Reported) Scheduled PRN Acetaminophen* (Acetaminophen 325MG Tablet*), 650 MG ORAL Q4H PRN for fever and mild pain , (Reported) Clonidine Hcl (Clonidine Hcl), 0.1 MG PO for For High Blood Pressure, (Reported) Ondansetron* (Zofran*), 4 MG IM Q4HR PRN for Nausea & Vomiting, (Reported) Miscellaneous Medications Baclofen (Baclofen), 20 MG GT, (Reported) Discontinued Medications Acetaminophen* (Tylenol Extra Strength*), 650 MG ORAL Q6H PRN for Mild Pain/ Temp > 100.5, (Reported) Discontinued Reason: Medication dose changed Albuterol Sulfate (Ventolin Hfa), 2 PUFFS INH EVERY 6 HOURS, (Reported) Discontinued Reason: Medication dose changed Clonidine Hcl (Clonidine Hcl), 0.1 MG PO, (Reported) Discontinued Reason: Medication dose changed Famotidine (Famotidine), 2.5 MG GT DAILY, (Reported) Discontinued Reason: Medication dose changed Ferrous Sulfate (Ferrous Sulfate), 7.5 ML GT, (Reported) Discontinued Reason: Medication dose changed Ferrous Sulfate, Dried (Ferrous Sulfate), 500 GM MC, (Reported) Discontinued Reason: Medication dose changed Metformin HCl (Metformin HCl), 1,000 MG GT, (Reported) Discontinued Reason: Medication dose changed Multivit-Min/Iron Fum/Folic AC (Qupln-Yocokwv-Qfwjbgkc Tablet), 1 EACH GT, ( Reported) Discontinued Reason: Medication dose changed Ondansetron (Zofran), 4 MG IM Q6H PRN for Nausea & Vomiting, (Reported) Discontinued Reason: Medication dose changed Sennosides (Senna), 2 MG GT, (Reported) Discontinued Reason: Medication dose changed Sennosides (Senna), 2 MG GT, (Reported) Discontinued Reason: Medication dose changed Valproate Sodium (Valproic Acid), 10 ML PO, (Reported) Discontinued Reason: Medication dose changed Patient History Healthcare decision maker Resuscitation status Advanced Directive on File Past Medical/Surgical History Past Medical/Surgical History: (1) Diabetes mellitus (2) Vegetative state (3) Cerebrovascular accident (CVA) (4) Contracture of joint of multiple sites (5) Chronic respiratory failure Review of Systems All Other Systems: negative except mentioned in HP (vegetative) PE: Vitals: reviewed, stable General Appearance: NAD HEENT: normocephalic, atraumatic Neck: non-tender, normal alignment Respiratory/Chest: crackles b/l noted, ++ trach/vent Cardiovascular/Chest: normal peripheral pulses, normal rate Abdomen: normal bowel sounds, soft, nontender ++ peg Extremities: normal range of motion Last 24 Hour Vital Signs Date Time Temp Pulse Resp B/P (MAP) Pulse Ox O2 Delivery O2 Flow Rate FiO2 05/27/18 12:20 86 17 40 05/27/18 12:05 100.0 4/3/19 11:12 82 14 137/70 98 Mechanical Ventilator 40 05/27/18 11:06 40 05/27/18 10:35 82 17 40 05/27/18 09:14 101.0 05/27/18 08:45 97 21 40 05/27/18 08:24 100 19 98 Mechanical Ventilator 40 05/27/18 08:00 98 19 Mechanical Ventilator 40 05/27/18 08:00 40 05/27/18 07:30 103 20 40 05/27/18 07:29 103 20 Mechanical Ventilator 40 05/27/18 07:21 102.9 100 27 140/82 100 Mechanical Ventilator Laboratory Tests Test 05/27/18 07:57 05/27/18 08:10 05/27/18 08:20 05/27/18 09:20 White Blood Count 19.8 K/UL (4.8-10.8) H Red Blood Count 3.87 M/UL (4.70-6.10) L Hemoglobin 8.7 G/DL (14.2-18.0) L Hematocrit 28.0 % (42.0-52.0) L Mean Corpuscular Volume 72 FL (80-99) L Mean Corpuscular Hemoglobin 22.4 PG (27.0-31.0) L Mean Corpuscular Hemoglobin Concent 31.0 G/DL (32.0-36.0) L Red Cell Distribution Width 17.3 % (11.6-14.8) H Platelet Count 294 K/UL (150-450) Mean Platelet Volume 6.9 FL (6.5-10.1) Neutrophils (%) (Auto) % (45.0-75.0) Lymphocytes (%) (Auto) % (20.0-45.0) Monocytes (%) (Auto) % (1.0-10.0) Eosinophils (%) (Auto) % (0.0-3.0) Basophils (%) (Auto) % (0.0-2.0) Differential Total Cells Counted 100 Neutrophils % (Manual) 80 % (45-75) H Lymphocytes % (Manual) 7 % (20-45) L Monocytes % (Manual) 6 % (1-10) Eosinophils % (Manual) 1 % (0-3) Basophils % (Manual) 0 % (0-2) Band Neutrophils 6 % (0-8) Platelet Estimate Adequate Platelet Morphology Normal Polychromasia 1+ Anisocytosis 1+ Microcytosis 1+ Sodium Level 143 MMOL/L (136-145) Potassium Level 3.0 MMOL/L (3.5-5.1) L Chloride Level 105 MMOL/L (98-107) Carbon Dioxide Level 27 MMOL/L (21-32) Anion Gap 11 mmol/L (5-15) Blood Urea Nitrogen 28 mg/dL (7-18) H Creatinine 1.3 MG/DL (0.55-1.30) Estimat Glomerular Filtration Rate 54.6 mL/min (>60) Glucose Level 465 MG/DL (74-106) H Lactic Acid Level 2.60 mmol/L (0.4-2.0) H 2.20 mmol/L (0.66-2.22) Calcium Level 9.0 MG/DL (8.5-10.1) Total Bilirubin 0.2 MG/DL (0.2-1.0) Aspartate Amino Transf (AST/SGOT) 16 U/L (15-37) Alanine Aminotransferase (ALT/SGPT) 15 U/L (12-78) Alkaline Phosphatase 80 U/L (46-116) Total Creatine Kinase 63 U/L (26-308) Troponin I 0.145 ng/mL (0.000-0.056) Pro-B-Type Natriuretic Peptide 1512 pg/mL (0-125) H Total Protein 7.7 G/DL (6.4-8.2) Albumin 1.8 G/DL (3.4-5.0) L Globulin 5.9 g/dL Albumin/Globulin Ratio 0.3 (1.0-2.7) L Lipase 203 U/L (73-393) Prothrombin Time 11.5 SEC (9.30-11.50) Prothromb Time International Ratio 1.1 (0.9-1.1) Activated Partial Thromboplast Time 23 SEC (23-33) Arterial Blood pH 7.457 (7.350-7.450) Arterial Blood Partial Pressure CO2 40.7 mmHg (35.0-45.0) Arterial Blood Partial Pressure O2 94.5 mmHg (75.0-100.0) Arterial Blood HCO3 28.1 mmol/L (22.0-26.0) H Arterial Blood Oxygen Saturation 96.7 % (95-100) Arterial Blood Base Excess 3.9 (-2-2) H Tommy Test Positive Urine Color Pale yellow Urine Appearance Clear Urine pH 6 (4.5-8.0) Urine Specific [place] 1.010 (1.005-1.035) Urine Protein 3+ (NEGATIVE) H Urine Glucose (UA) 4+ (NEGATIVE) H Urine Ketones 1+ (NEGATIVE) H Urine Blood 3+ (NEGATIVE) H Urine Nitrite Negative (NEGATIVE) Urine Bilirubin Negative (NEGATIVE) Urine Urobilinogen Normal MG/DL (0.0-1.0) Urine Leukocyte Esterase Negative (NEGATIVE) Urine RBC 10-15 /HPF (0 - 0) H Urine WBC 0-2 /HPF (0 - 0) Urine Squamous Epithelial Cells Occasional /LPF Urine Bacteria Occasional /HPF (NONE) Height (Feet): 5 Height (Inches): 6.00 Weight (Pounds): 155 Medications Current Medications Medications (Trade) Dose Ordered Sig/Bhupinder Route PRN Reason Start Time Stop Time Status Last Admin Dose Admin Acetaminophen (Tylenol) 1,000 mg STAT PRN GT Mild Pain/Temp > 100.5 05/27/18 08:00 06/26/18 07:59 05/27/18 08:44 Assessment and Recs: # Anemia of chronic disease (or of iron deficiency) due to underlying chronic medical issues, multifactorial --> Anemia workup has been ordered, rule out gi bleed --> No evidence of hemolysis is noted, peripheral smear has been reviewed. --> Hgb goal >7. Transfuse prn. --> Epogen or iron at this time is not particularly indicated --> Medications have been reviewed --> evaluate with Gi team prn --> transfuse if hgb is < 7 (will trend CBC daily) # Leukocytosis/Elevated white blood cell count, unspecified likely related to underlying stress reaction, smoking v more likely infection (PNA) --> have reviewed peripheral smear and bandemia/neutrophilia noted --> continue antibiotics if they have been started by ID team --> monitor for resolution # Acute on chronic respiratory failure --> on abx as per id --> pulm//cc on the case for manageemnt as well # Nosocomial pneumonia # Severe sepsis w/ pna --> on abx # Cerebrovascular accident (CVA) # Vegetative state # Contracture of joint of multiple sites The timing of this note does not necessarily reflect the time of the patient was seen. Greatly appreciate consultation! Trey Tripathi MD May 28, 2018 16:12
[2018-05-28] MEDS ORDERED: Amikacin Rx to dose MISC PRN (16:30)
--- NOTE | 2018-05-28 16:30 | Infectious Diseases Prog Note ---
Assessment/Plan Assessment/Plan Full consult to follow: A) 1) sepsis, gram neg bacteremai, aspiration pna/hcap, leukocytosis, fevers, sirs 2) pmh noted 3) allergies - nkda P) 1) zosyn and vancomycin, amikacin 2) check cultures, labs and chest x-ray, ct/us abdomen 3) d/w Dr. Weaver 4) will f/u Subjective Allergies: Coded Allergies: No Known Allergies (Unverified , 05/27/18) Objective Vital Signs Last 24 Hour Vital Signs Date Time Temp Pulse Resp B/P (MAP) Pulse Ox O2 Delivery O2 Flow Rate FiO2 05/28/18 15:03 94 14 40 05/28/18 14:09 70 16 40 05/28/18 12:00 98.2 73 17 136/75 (95) 100 05/28/18 12:00 68 05/28/18 12:00 Mechanical Ventilator 05/28/18 12:00 40 05/28/18 10:51 82 16 40 05/28/18 09:05 78 18 40 05/28/18 08:25 139/72 05/28/18 08:00 Mechanical Ventilator 05/28/18 08:00 40 05/28/18 08:00 97.9 66 15 138/72 (94) 100 05/28/18 07:48 65 05/28/18 07:27 68 16 40 05/28/18 04:50 80 16 40 05/28/18 04:00 Mechanical Ventilator 05/28/18 04:00 98.0 69 15 139/77 (97) 96 05/28/18 04:00 40 05/28/18 03:29 70 16 40 05/28/18 03:27 72 05/28/18 00:52 80 20 40 05/28/18 00:00 99.3 64 14 129/69 (89) 100 05/28/18 00:00 Mechanical Ventilator 05/27/18 23:25 69 05/27/18 22:37 82 22 40 05/27/18 21:45 97.3 05/27/18 21:33 153/92 05/27/18 21:00 Mechanical Ventilator 05/27/18 20:36 89 20 40 05/27/18 20:00 102.3 94 20 153/92 (112) 99 05/27/18 20:00 40 05/27/18 19:01 92 05/27/18 19:00 90 20 40 05/27/18 17:19 Mechanical Ventilator 05/27/18 17:15 102.0 05/27/18 17:09 87 23 40 Height (Feet): 5 Height (Inches): 6.00 Weight (Pounds): 175 Microbiology Date/Time Source Procedure Growth Status 05/27/18 08:05 Blood Blood Culture - Preliminary Resulted 05/27/18 08:00 Blood Blood Culture - Preliminary Resulted Laboratory Tests Test 05/28/18 03:40 White Blood Count 18.5 K/UL (4.8-10.8) H Red Blood Count 3.30 M/UL (4.70-6.10) L Hemoglobin 7.3 G/DL (14.2-18.0) L Hematocrit 24.4 % (42.0-52.0) L Mean Corpuscular Volume 74 FL (80-99) L Mean Corpuscular Hemoglobin 22.2 PG (27.0-31.0) L Mean Corpuscular Hemoglobin Concent 30.0 G/DL (32.0-36.0) L Red Cell Distribution Width 17.4 % (11.6-14.8) H Platelet Count 291 K/UL (150-450) Mean Platelet Volume 7.7 FL (6.5-10.1) Neutrophils (%) (Auto) % (45.0-75.0) Lymphocytes (%) (Auto) % (20.0-45.0) Monocytes (%) (Auto) % (1.0-10.0) Eosinophils (%) (Auto) % (0.0-3.0) Basophils (%) (Auto) % (0.0-2.0) Differential Total Cells Counted 100 Neutrophils % (Manual) 81 % (45-75) H Lymphocytes % (Manual) 9 % (20-45) L Monocytes % (Manual) 8 % (1-10) Eosinophils % (Manual) 2 % (0-3) Basophils % (Manual) 0 % (0-2) Band Neutrophils 0 % (0-8) Platelet Estimate Adequate Platelet Morphology Normal Polychromasia 1+ Hypochromasia 1+ Anisocytosis 1+ Microcytosis 1+ Sodium Level 147 MMOL/L (136-145) H Potassium Level 3.2 MMOL/L (3.5-5.1) L Chloride Level 111 MMOL/L (98-107) H Carbon Dioxide Level 25 MMOL/L (21-32) Anion Gap 11 mmol/L (5-15) Blood Urea Nitrogen 21 mg/dL (7-18) H Creatinine 0.8 MG/DL (0.55-1.30) Estimat Glomerular Filtration Rate > 60 mL/min (>60) Glucose Level 296 MG/DL (74-106) #H Hemoglobin A1c 8.7 % (4.3-6.0) H Calcium Level 8.1 MG/DL (8.5-10.1) L Total Bilirubin 0.1 MG/DL (0.2-1.0) L Aspartate Amino Transf (AST/SGOT) 26 U/L (15-37) Alanine Aminotransferase (ALT/SGPT) 24 U/L (12-78) Alkaline Phosphatase 60 U/L (46-116) Total Protein 6.7 G/DL (6.4-8.2) Albumin 1.6 G/DL (3.4-5.0) L Globulin 5.1 g/dL Albumin/Globulin Ratio 0.3 (1.0-2.7) L Triglycerides Level 126 MG/DL (30-150) Cholesterol Level 66 MG/DL (< 200) LDL Cholesterol 23 mg/dL (<100) HDL Cholesterol 23 MG/DL (40-60) L Cholesterol/HDL Ratio 2.9 (3.3-4.4) L Thyroid Stimulating Hormone (TSH) 2.492 uiU/mL (0.358-3.740) Current Medications Medications (Trade) Dose Ordered Sig/Bhupinder Route PRN Reason Start Time Stop Time Status Last Admin Dose Admin Acetaminophen (Tylenol) 650 mg Q4H PRN GT fever 05/27/18 13:15 06/26/18 13:14 05/27/18 16:45 Al Hydroxide/Mg Hydroxide (Mylanta II) 30 ml Q6H PRN GT dyspepsia 05/27/18 13:15 06/26/18 13:14 Albuterol/ Ipratropium (Albuterol/ Ipratropium) 3 ml Q4H PRN HHN Shortness of Breath 05/27/18 13:15 06/01/18 13:14 Chlorhexidine Gluconate (Jasmin-Hex 2%) 1 applic DAILY@1999 TOPIC 05/28/18 20:00 06/27/18 19:59 Clonidine HCl (Catapres Tab) 0.1 mg EVERY 12 HOURS GT 05/27/18 21:00 06/26/18 20:59 05/28/18 08:25 Clonidine HCl (Catapres Tab) 0.1 mg Q4H PRN GT sbp more than 160 05/27/18 13:15 06/26/18 13:14 Dextrose (Dextrose 50%) 25 ml Q30M PRN IV Hypoglycemia 05/27/18 13:15 06/26/18 13:14 Dextrose (Dextrose 50%) 50 ml Q30M PRN IV Hypoglycemia 05/27/18 13:15 06/26/18 13:14 Heparin Sodium (Porcine) (Heparin 5000 units/ml) 5,000 units EVERY 12 HOURS SUBQ 05/27/18 21:00 06/26/18 20:59 05/27/18 21:36 Heparin Sodium/ Sodium Chloride (Heparin 1000 units/500ml Premix) 1,000 unit ONCE PRN IV PICC 05/28/18 10:30 05/28/18 23:59 Insulin Aspart (NovoLOG) Q4HR SUBQ 05/27/18 18:00 06/26/18 17:59 05/28/18 13:10 Ketorolac Tromethamine (Toradol 30mg) 30 mg Q6H PRN IV moderate pain 4-6 05/27/18 13:15 06/01/18 13:14 Levetiracetam (Keppra) 1,500 mg DAILY GT 05/28/18 09:00 06/27/18 08:59 05/28/18 08:20 Lidocaine HCl (Xylocaine 1% 30ml) 30 ml ONCE PRN INJ picc 05/28/18 10:30 05/28/18 23:59 Morphine Sulfate (Morphine Sulfate) 2 mg Q4H PRN IVP severe pain 7-10 05/27/18 13:15 06/03/18 13:14 Nitroglycerin (Ntg) 0.4 mg Q5M X 3 DOSES PRN SL Prn Chest Pain 05/27/18 13:15 06/26/18 13:14 Ondansetron HCl (Zofran) 4 mg Q6H PRN IVP Nausea & Vomiting 05/27/18 13:15 5/3/19 13:14 Piperacillin Sod/ Tazobactam Sod 3.375 gm/Sodium Chloride 110 ml @ 27.5 mls/hr Q8H IVPB 05/28/18 02:00 06/04/18 01:59 05/28/18 10:32 Polyethylene Glycol (Miralax) 17 gm HSPRN PRN GT Constipation 05/27/18 13:15 06/26/18 13:14 Sodium Chloride 1,000 ml @ 100 mls/hr Q10H IVLG 05/27/18 13:12 06/26/18 13:11 05/28/18 09:12 Temazepam (Restoril) 15 mg HSPRN PRN GT Insomnia 05/27/18 13:15 06/03/18 13:14 Vancomycin HCl (Vanco rx to dose) 1 ea DAILY PRN MISC Per rx protocol 05/27/18 21:30 06/26/18 21:29 Vancomycin HCl/ Dextrose 275 ml @ 183.333 mls/hr Q24H IVPB 05/28/18 20:00 06/02/18 19:59 Raoul Leigh MD May 28, 2018 16:30
[2018-05-28 17:25] LABS: % IRON SATURATION 93 % (15-50); IRON 239 ug/dL (50-175); TOTAL IRON BINDING CAPACITY 257 ug/dL (250-450)
[2018-05-28] MEDS ORDERED: Amikacin 1,000 MG in NS 110 ML IV SCH (18:00)
[2018-05-28 18:02] LABS: FERRITIN 202 NG/ML (8-388); LACTATE DEHYDROGENASE 305 U/L (81-234)
--- NOTE | 2018-05-28 18:51 | General Progress Note ---
Assessment/Plan Problem List: (1) Diabetes mellitus ICD Codes: E11.9 - Type 2 diabetes mellitus without complications SNOMED: 30522800 (2) Chronic respiratory failure ICD Codes: J96.10 - Chronic respiratory failure, unspecified whether with hypoxia or hypercapnia SNOMED: 16892481 (3) Contracture of joint of multiple sites ICD Codes: M24.50 - Contracture, unspecified joint SNOMED: 98336649, 848608822 (4) Pneumonia ICD Codes: J18.9 - Pneumonia, unspecified organism SNOMED: 246006513 (5) Severe sepsis ICD Codes: A41.9 - Sepsis, unspecified organism; R65.20 - Severe sepsis without septic shock SNOMED: 94947449 (6) Vegetative state ICD Codes: R40.3 - Persistent vegetative state SNOMED: 39898225 (7) Cerebrovascular accident (CVA) ICD Codes: I63.9 - Cerebral infarction, unspecified SNOMED: 755972354 (8) Sepsis ICD Codes: A41.9 - Sepsis, unspecified organism SNOMED: 42795659 Assessment/Plan add Levemir 15 units bid continue NISS every 4 hours Subjective ROS Limited/Unobtainable: Yes Allergies: Coded Allergies: No Known Allergies (Unverified , 05/27/18) Subjective Patient presents to the emergency department today with elevated temperature and elevated glucose. Patient is full code. Patient is ventilator dependent G- tube dependent. This line mental status is poor bedridden and unable to communicate. Patient has a tracheostomy and feeding tube. Patient was noted to have a fever of 103. Glucose was critically high. Patient's prior further evaluation. Apparently patient was recently treated for UTI with Rocephin. Patient last laboratory results shows a fairly elevated white blood cell count. Paramedics are unable to provide much more history. All the history was essentially obtained from medical records. Patient's primary care physician is Dr. Janette Weaver at the group home. No further history is available at this time. Item Value Date Time Bedside Blood Glucose 272 mg/dl H 05/28/18 1843 Bedside Blood Glucose 307 mg/dl H 05/28/18 1310 Bedside Blood Glucose 355 mg/dl H 05/28/18 0827 Bedside Blood Glucose 342 mg/dl H 05/28/18 0504 Bedside Blood Glucose 274 mg/dl H 05/28/18 0100 Bedside Blood Glucose 288 mg/dl H 05/27/18 2135 Bedside Blood Glucose 337 mg/dl H 05/27/18 1831 Objective Last 24 Hour Vital Signs Date Time Temp Pulse Resp B/P (MAP) Pulse Ox O2 Delivery O2 Flow Rate FiO2 05/28/18 16:52 70 19 40 05/28/18 16:00 40 05/28/18 16:00 Mechanical Ventilator 05/28/18 15:19 94 14 40 05/28/18 14:09 70 16 40 05/28/18 12:00 98.2 73 17 136/75 (95) 100 05/28/18 12:00 68 05/28/18 12:00 Mechanical Ventilator 05/28/18 12:00 40 05/28/18 10:51 82 16 40 05/28/18 09:05 78 18 40 05/28/18 08:25 139/72 05/28/18 08:00 Mechanical Ventilator 05/28/18 08:00 40 05/28/18 08:00 97.9 66 15 138/72 (94) 100 05/28/18 07:48 65 05/28/18 07:27 68 16 40 05/28/18 04:50 80 16 40 05/28/18 04:00 Mechanical Ventilator 05/28/18 04:00 98.0 69 15 139/77 (97) 96 05/28/18 04:00 40 05/28/18 03:29 70 16 40 05/28/18 03:27 72 05/28/18 00:52 80 20 40 05/28/18 00:00 99.3 64 14 129/69 (89) 100 05/28/18 00:00 Mechanical Ventilator 05/27/18 23:25 69 05/27/18 22:37 82 22 40 05/27/18 21:45 97.3 05/27/18 21:33 153/92 05/27/18 21:00 Mechanical Ventilator 05/27/18 20:36 89 20 40 05/27/18 20:00 102.3 94 20 153/92 (112) 99 05/27/18 20:00 40 05/27/18 19:01 92 05/27/18 19:00 90 20 40 Intake and Output 05/27/18 05/28/18 19:00 07:00 Intake Total 4755 ml 1525.42335 ml Output Total 1100 ml 550 ml Balance 3655 ml 975.07935 ml Intake Oral 0 ml Free Water 50 ml 50 ml IV Total 4685 ml 1155.03142 ml Tube Feeding 20 ml 320 ml Output Urine Total 1100 ml 550 ml # Bowel Movements 9 2 Laboratory Tests 05/28/18 03:40: White Blood Count 18.5H, Red Blood Count 3.30L, Hemoglobin 7.3L, Hematocrit 24.4L, Mean Corpuscular Volume 74L, Mean Corpuscular Hemoglobin 22.2L, Mean Corpuscular Hemoglobin Concent 30.0L, Red Cell Distribution Width 17.4H, Platelet Count 291, Mean Platelet Volume 7.7, Neutrophils (%) (Auto) , Lymphocytes (%) (Auto) , Monocytes (%) (Auto) , Eosinophils (%) (Auto) , Basophils (%) (Auto) , Differential Total Cells Counted 100, Neutrophils % ( Manual) 81H, Lymphocytes % (Manual) 9L, Monocytes % (Manual) 8, Eosinophils % ( Manual) 2, Basophils % (Manual) 0, Band Neutrophils 0, Platelet Estimate Adequate, Platelet Morphology Normal, Polychromasia 1+, Hypochromasia 1+, Anisocytosis 1+, Microcytosis 1+, Sodium Level 147H, Potassium Level 3.2L, Chloride Level 111H, Carbon Dioxide Level 25, Anion Gap 11, Blood Urea Nitrogen 21H, Creatinine 0.8, Estimat Glomerular Filtration Rate > 60, Glucose Level 296# H, Hemoglobin A1c 8.7H, Calcium Level 8.1L, Iron Level 239H, Total Iron Binding Capacity 257, Percent Iron Saturation 93H, Unsaturated Iron Binding 18L, Ferritin 202, Total Bilirubin 0.1L, Aspartate Amino Transf (AST/SGOT) 26, Alanine Aminotransferase (ALT/SGPT) 24, Alkaline Phosphatase 60, Lactate Dehydrogenase 305H, Total Protein 6.7, Albumin 1.6L, Globulin 5.1, Albumin/ Globulin Ratio 0.3L, Triglycerides Level 126, Cholesterol Level 66, LDL Cholesterol 23, HDL Cholesterol 23L, Cholesterol/HDL Ratio 2.9L, Carcinoembryonic Antigen [Pending], Folate 7.1L, Thyroid Stimulating Hormone ( TSH) 2.492 Height (Feet): 5 Height (Inches): 6.00 Weight (Pounds): 175 General Appearance: lethargic Neck: other - tracheostomy Cardiovascular: regular rhythm Respiratory/Chest: decreased breath sounds Abdomen: normal bowel sounds, other - PEG Pelvis: normal external exam Edema: 1+ Arm (L), 1+ Arm (R), 1+ Leg (L), 1+ Leg (R), 1+ Pedal (L), 1+ Pedal ( R), 1+ Generalized Objective Current Medications Medications (Trade) Dose Ordered Sig/Bhupinder Route PRN Reason Start Time Stop Time Status Last Admin Dose Admin Acetaminophen (Tylenol) 650 mg Q4H PRN GT fever 05/27/18 13:15 06/26/18 13:14 05/27/18 16:45 Al Hydroxide/Mg Hydroxide (Mylanta II) 30 ml Q6H PRN GT dyspepsia 05/27/18 13:15 06/26/18 13:14 Albuterol/ Ipratropium (Albuterol/ Ipratropium) 3 ml Q4H PRN HHN Shortness of Breath 05/27/18 13:15 06/01/18 13:14 Chlorhexidine Gluconate (Jasmin-Hex 2%) 1 applic DAILY@2000 TOPIC 05/28/18 20:00 06/27/18 19:59 Clonidine HCl (Catapres Tab) 0.1 mg EVERY 12 HOURS GT 05/27/18 21:00 06/26/18 20:59 05/28/18 08:25 Clonidine HCl (Catapres Tab) 0.1 mg Q4H PRN GT sbp more than 160 05/27/18 13:15 06/26/18 13:14 Dextrose (Dextrose 50%) 25 ml Q30M PRN IV Hypoglycemia 05/27/18 13:15 06/26/18 13:14 Dextrose (Dextrose 50%) 50 ml Q30M PRN IV Hypoglycemia 05/27/18 13:15 06/26/18 13:14 Heparin Sodium (Porcine) (Heparin 5000 units/ml) 5,000 units EVERY 12 HOURS SUBQ 05/27/18 21:00 06/26/18 20:59 05/27/18 21:36 Heparin Sodium/ Sodium Chloride (Heparin 1000 units/500ml Premix) 1,000 unit ONCE PRN IV PICC 05/28/18 10:30 05/28/18 23:59 Insulin Aspart (NovoLOG) Q4HR SUBQ 05/27/18 18:00 06/26/18 17:59 05/28/18 18:43 Ketorolac Tromethamine (Toradol 30mg) 30 mg Q6H PRN IV moderate pain 4-6 05/27/18 13:15 06/01/18 13:14 Levetiracetam (Keppra) 1,500 mg DAILY GT 05/28/18 09:00 06/27/18 08:59 05/28/18 08:20 Lidocaine HCl (Xylocaine 1% 30ml) 30 ml ONCE PRN INJ picc 05/28/18 10:30 05/28/18 23:59 Morphine Sulfate (Morphine Sulfate) 2 mg Q4H PRN IVP severe pain 7-10 05/27/18 13:15 06/03/18 13:14 Nitroglycerin (Ntg) 0.4 mg Q5M X 3 DOSES PRN SL Prn Chest Pain 05/27/18 13:15 06/26/18 13:14 Ondansetron HCl (Zofran) 4 mg Q6H PRN IVP Nausea & Vomiting 05/27/18 13:15 06/26/18 13:14 Piperacillin Sod/ Tazobactam Sod 3.375 gm/Sodium Chloride 110 ml @ 27.5 mls/hr Q8H IVPB 05/28/18 02:00 06/04/18 01:59 05/28/18 10:32 Polyethylene Glycol (Miralax) 17 gm HSPRN PRN GT Constipation 05/27/18 13:15 06/26/18 13:14 Sodium Chloride 1,000 ml @ 100 mls/hr Q10H IVLG 05/27/18 13:12 06/26/18 13:11 05/28/18 18:38 Temazepam (Restoril) 15 mg HSPRN PRN GT Insomnia 05/27/18 13:15 06/03/18 13:14 Vancomycin HCl (Vanco rx to dose) 1 ea DAILY PRN MISC Per rx protocol 05/27/18 21:30 06/26/18 21:29 Vancomycin HCl/ Dextrose 275 ml @ 183.333 mls/hr Q24H IVPB 05/28/18 20:00 06/02/18 19:59 Ayan Gillespie MD May 28, 2018 18:51
--- NOTE | 2018-05-28 19:03 | NUR ---
RESPIRATORY NOTE: Received pt. on 840 vent. Vent settings are: A/C rate of 10, Vt 500, FI02 40%, PEEP +5. No respiratory distress noted, pt. Sp02 @ 100%. Ambu bag @ BS. Vent plugged on red outlet. Will continue to monitor pt.
--- NOTE | 2018-05-28 19:05 | NUR ---
NURSE NOTES: Received report from Jas Romero RN. Patient is asleep in bed, obtunded and nonverbal. No s/s of acute distress noted. Sinus rhythm on vehicle monitor technician. Saturating well on trach-vent settings: Portex 7, AC 10, vT500, FiO2 40%, PEEP 5. Mid-line in place, intact and patent. Bed locked in lowest position with padded side rails up x3. Call light left within reach. Will continue to monitor.
[2018-05-28 20:00] VITALS: BP 149/85
[2018-05-28] MEDS: Dyna-Hex 2% Top Sol 2oz TOPIC SCH (20:26)
[2018-05-28] MEDS: Vancomycin 1.25gm Premix IVPB SCH (21:25)
--- NOTE | 2018-05-28 23:15 | NUR ---
NURSE NOTES: Informed Dr. Weaver of newly inserted right upper arm mid-line leaking. New order received and carried out.
[2018-05-29] VITALS: BP 144/79
[2018-05-29] MEDS ORDERED: Lidocaine 1% Plain 30 ml INJ ONE (00:15)
[2018-05-29] MEDS ORDERED: Heparin1,000 units/500ml Premix(Conc:2 units/ml) IV ONE (00:15)
--- NOTE | 2018-05-29 00:45 | Consultation ---
DATE OF CONSULTATION: 05/28/2018 INFECTIOUS DISEASE CONSULTATION CONSULTING PHYSICIAN: Raoul Leigh M.D. ATTENDING PHYSICIAN: Janette Weaver M.D. REFERRING PHYSICIAN: Janette Weaver M.D. REASON FOR CONSULTATION: Gram-positive bacteremia, gram-negative sepsis, sepsis, sepsis syndrome, SIRS criteria, fevers, leukocytosis, and pneumonia. The patient's chief complaint coming in to the hospital is sepsis and hyperglycemia. HISTORY OF PRESENT ILLNESS: This is a 68-year-old male, who has a history of trach, vent, and respiratory failure. Currently, he is on a vent and has a Crow. The patient opens his eyes, but really cannot communicate at this time. The patient presents to [facility] with fevers, leukocytosis, and sepsis. Workup shows he has gram-positive bacteremia. He does not have a central line. He has a Crow. His UA was fairly unremarkable for UTI. Infectious Disease consultation requested for antibiotic management. Chest x-ray shows what looks like parenchymal disease and pneumonia. The patient has high-risk for aspiration and healthcare-acquired pneumonia. The patient was started on Zosyn and VANCO yesterday. I have added amikacin today because of the gram-positive bacteremia. Identification is pending. MAR was noted. Orders were noted. Notes and records were reviewed. We will continue Zosyn, amikacin, and VANCO for now. Case was discussed with RN. The patient in the step-down unit. REVIEW OF SYSTEMS: CONSTITUTIONAL: The patient has generalized fatigue. He opens his eyes. He has trach, vent, and respiratory failure. HEAD AND NECK: He has a trach. He is on a vent. CARDIAC: No pressors. GASTROINTESTINAL: No nausea, vomiting, or diarrhea. GENITOURINARY: He has a Crow. PULMONARY: On a vent. Some secretions. SKIN: No rash. The patient has wounds that were noted. They have reviewed all the wounds. NEUROLOGICAL: No seizures. There is generalized fatigue, weakness, and poorly responsive otherwise. The patient has wounds that were noted. PAST MEDICAL HISTORY: The patient's past medical history includes the following, the patient has a past medical history of diabetes mellitus, vegetative state; hypertension; CVA; he has contractures; vent, chronic respiratory failure, dysphagia, G-tube; and anemia. He has wounds. He is poorly responsive. ALLERGIES: No known drug allergies. SOCIAL HISTORY: Negative for smoking, alcohol, or drug abuse. FAMILY HISTORY: Noncontributory and negative for tuberculosis or cancer. MEDICATIONS: Upon reviewing MAR, placed him on following medications, placed him on antibiotics, VANCO, Zosyn, and amikacin; chlorhexidine; lidocaine; Keppra; clonidine; heparin; and insulin. He is on morphine, acetaminophen, albuterol treatments, Zofran, temazepam, nitroglycerin, IV fluids, and controlled the clonidine. Outside medications noted and reconciliated. PHYSICAL EXAMINATION: VITAL SIGNS: Temperature is 98.2 degrees, pulse rate is 73, respiratory rate 17, blood pressure 136/75, saturation 100%, FiO2 40%, T-max is 102.9 degrees, and heart rate was high as 103. GENERAL: Lethargic, weak, and opens his eyes. HEAD AND NECK: Oral exam, no thrush. Eyes exam, no icterus. Normocephalic. Trach intact. Otherwise, JVD could not be assessed. Neck is supple. HEART: Regular. No obvious gallop or murmur. No friction or rub. ABDOMEN: Soft. Positive bowel sounds. Cannot assess tenderness. LUNGS: Bilateral rhonchi and rales. SKIN: Wounds were noted, not acutely infected. No other rash. MUSCULOSKELETAL: No effusions. Could not assess septic arthritis. Lower extremity exam without cellulitis. PERIPHERAL VASCULAR: No cyanosis or gangrene. GENITOURINARY: He has a Crow. Urine is slightly cloudy. LINE SITES: Mostly clear, otherwise without phlebitis. NEUROLOGICAL: Generalized weakness. Opens eyes occasionally. He had trach and vent. LABORATORY AND DIAGNOSTIC DATA: Laboratory data is follows white count is 18.5 and hemoglobin 7.3. Creatinine is 0.8 and potassium 3.2. White count is high as 19.8. Blood cultures, gram-positive cocci in clusters. IMAGING STUDIES: Chest x-ray shows left perihilar effusion and parenchymal disease and consolidation was noted and reviewed. ASSESSMENT/PLAN: 1. The patient has sepsis, elevated white count, and fevers. He has gram-positive bacteremia. Continue VANCO and Zosyn for sepsis, gram-positive bacteremia, and also looks like aspiration and healthcare-acquired pneumonia on chest x-ray. His UA was unremarkable for UTI. The UA was leukocyte esterase negative and only 0 to 2 white blood cells. Continue broad-spectrum antibiotics for the patient's sepsis including VANCO and Zosyn. The VANCO will cover with gram-positive bacteremia. Check surveillance blood cultures also. Echo to rule out endocarditis. Continue VANCO and Zosyn, pending workup for sepsis, leukocytosis, fevers, and what looks like also aspiration and healthcare-acquired pneumonia. Check sputum culture. Followup laboratories and chest x-ray. 2. Wound care protocol. 3. Trach, vent, and respiratory failure. 4. Dysphagia, G-tube. 5. CVA. 6. Poorly responsive. 7. Diabetes mellitus. 8. Hypertension. 9. Blood sugar and blood pressure treatment per primary. 10. Contractures. 11. Weakness secondary to CVA. 12. Chronic respiratory failure. 13. Vegetative state. 14. The patient currently is a full code. 15. Past medical history is noted. 16. No known allergies. 17. Social history is negative. 18. Family history is noncontributory. 19. MAR is noted. 20. Case was discussed with Dr. Weaver. 21. Continue treatment per primary consultants. Raoul Leigh M.D. DR: AVA JOB#: [id number] CC:
[2018-05-29] MEDS: NovoLOG Insulin Flexpen SUBQ SCH ×6 (01:17→20:55)
--- NOTE | 2018-05-29 01:30 | History and Physical Report ---
DATE OF ADMISSION: 05/27/2018 NOTE: POOR AUDIO This is one of several admission to [facility] of this 68-year-old patient because of septic shock. HISTORY OF PRESENT ILLNESS: The patient is a resident of an extended care facility subacute unit where he has been in stable condition over the last several years. He is known to have several chronic medical syndrome that can be described in the following paragraph. The patient has been stable on his current medication. One day prior to the present admission, developed fever, tachycardia, and leukocytosis the patient has C. difficile colitis. The patient was started on metronidazole and then switched to vancomycin via G-tube. tachycardia and leukocytosis. Overnight, the patient's blood sugar became uncontrollable above [facility] by substation operator. His condition stabilized without the use of support and the patient was admitted to [facility]. PAST MEDICAL HISTORY: Several days ago, the patient had cerebrovascular accident following which he became he had respiratory failure had to be intubated and placed on mechanical ventilation. He was unable to be weaned and underwent tracheostomy and gastrostomy, . He is known to have several chronic medical syndromes that include high blood pressure, diabetes mellitus, , morbid obesity, hyperlipidemia, . ALLERGIES: No known drug allergies. MEDICATIONS: The patient is on aspirin 81 mg daily, atorvastatin 30 mg daily, baclofen 5 mg b.i.d., clonidine 0.1 mg q.8 h. p.r.n, famotidine 20 mg b.i.d., ferrous sulfate 325 mg b.i.d., levetiracetam 500 b.i.d., linagliptin 5 mg daily, lisinopril 20 mg daily, metformin 500 mg b.i.d., ondansetron 4 mg q.4 h. p.r.n. He is on topiramate 200 mg b.i.d., valproic acid 500 mg t.i.d., vitamin D 5000 units daily. SOCIAL HISTORY: He is . He was born in [place]. 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 HABITS: The patient did not smoke, drink, or use illicit drugs. REVIEW OF SYSTEMS: The patient is unable to give any information regarding his state of health. PHYSICAL EXAMINATION: VITAL SIGNS: Blood pressure is 153/92, pulse 99, respirations of 20, and temperature is 102.3. HEENT: Eyes were normal. Pupils were round, equal, and reactive to light. Sclerae were white. Conjunctivae were pink. Extraocular movements were normal. Temporal arteries were palpable bilaterally. There was no bilateral temporal wasting. Visual felix to confrontation but no neglect sign. ENT, mucous membranes were not dehydrated. Auditory canals were clear and tympanic membranes could not be visualized. Nasal cavity was not congested. Nasal septum was intact. Soft palate was free of ulcerations. Pharynx was clear from exudate or tonsillar hypertrophy. Uvula coretta to phonation. Tongue was moist, midline, and normally papillated. NECK: Supple. There was no goiter. No mass. No lymphadenopathy. There was no JVD. No bruits. Carotid upstroke was 2+. LUNGS: Clear. HEART: PMI was fifth left intercostal space in midclavicular line. There was normal S1 and normal S2. There was no murmur. No arrhythmia. No S3. No S4. No pericardial rub. ABDOMEN: Soft, obese, and nontender without organomegaly. There were no masses palpable. Normal bowel sounds without bruits. There was no guarding. No rebound tenderness. No ascites. No hernia. No CVA tenderness. Liver span was 8 cm, mostly nontender. EXTREMITIES: No cyanosis, no clubbing, and no edema. Extremities were warm. NEUROLOGICAL: Reflexes in biceps, triceps, and brachioradialis were symmetric and equal. Patellar retinaculum were symmetric and equal. Plantars were in extension bilaterally. Cerebellar function, there was no tremor. No nystagmus. No extrapyramidal rigidity. Sensory exam to pinprick, cotton touch, position, and motor strength could not be assessed. LABORATORY AND DIAGNOSTIC DATA: Hemoglobin is 8.7, hematocrit 28.0 with MCV of 72, WBC of 19.8 and platelets 294. His BUN and creatinine are 28 and 1.3 respectively. Sodium is 143, potassium 3.0, chloride 105, CO2 27, and calcium was 9.0. Troponin is 0.145. Pro-BNP is 1512. Albumin is 1.8 and total protein is 7.7. Chest x-ray showed left pleural effusion with parenchymal infiltrate. PLAN: The patient will be started on Zosyn 3.375 mg IV piggyback q.6 h. and vancomycin 750 mg IV piggyback. Pulmonary interior design consultant and and Infectious Disease interior design consultant were called to assist in the management of this case. Repeat laboratory tests will be done in the a.m. Janette Weaver M.D. DR: Padmini JOB#: [id number] CC:
[2018-05-29] MEDS: Piperacillin/Tazobactam 3.375 GM in NS 110 ML IVPB SCH ×3 (02:06→17:39)
[2018-05-29 04:00] VITALS: BP 154/80
[2018-05-29 05:29] LABS: BASOPHILS % (AUTO) 0.6 % (0.0-2.0); HEMATOCRIT 27.3 % (42.0-52.0); HEMOGLOBIN 8.6 G/DL (14.2-18.0); LYMPHOCYTES % (AUTO) 16.7 % (20.0-45.0); MEAN CORPUSCULAR VOLUME 76 FL (80-99); NEUTROPHILS % (AUTO) 76.7 % (45.0-75.0); PLATELET COUNT 271 K/UL (150-450); RED BLOOD COUNT 3.59 M/UL (4.70-6.10); RED CELL DISTRIBUTION WIDTH 17.9 % (11.6-14.8); WHITE BLOOD COUNT 13.1 K/UL (4.8-10.8)
--- NOTE | 2018-05-29 05:45 | Progress Note ---
DATE: 05/28/2018 SUBJECTIVE: The patient remained in low-grade fever without tachycardia and hemodynamically stable. PHYSICAL EXAMINATION: VITAL SIGNS: Blood pressure 149/85, his pulse is 72, respirations of 20, and temperature 99.9. HEENT: Eyes were normal. ENT, mucous membranes were moist and intact. NECK: Supple with no JVD without lymph nodes. Tracheostomy site is clean. LUNGS: Clear without rhonchi, rales, or wheezing. Secretions are small, thin, and herrera. HEART: Normal sounds with regular beats. There are no S3, S4, or pericardial rub. ABDOMEN: Soft and nontender with normal bowel sounds. Gastrostomy site is clean. EXTREMITIES: Warm without cyanosis, clubbing, or edema. LABORATORY AND DIAGNOSTIC DATA: Hemoglobin is 7.3, hematocrit 24.4 with MCV of 74, WBC of 18.5, and platelets are 291,000. His BUN and creatinine are 21 and 0.8 respectively. His sodium is 147, potassium 3.2, chloride 111, CO2 is 25, and glucose is 296. His iron is 239, TIBC is 257, and iron saturation is 93. His ferritin is 202. SGOT, SGPT, and alkaline phosphatase are normal. LDH is 305. Albumin is 1.6. Chest x-ray showed pleural effusion with fatty infiltrate. . IMPRESSION AND PLAN: The patient will continue with the same antibiotics. He is on vancomycin 275 q.24 h. The patient also on piperacillin and tazobactam 3.375 g IV piggyback q.6 h. We will continue with the same antibiotics. Repeat laboratory tests will be done in the a.m. Janette Weaver M.D. DR: NASEEM JOB#: [id number] CC:
[2018-05-29 06:08] LABS: ALANINE AMINOTRANSFERASE 33 U/L (12-78); ALBUMIN 1.6 G/DL (3.4-5.0); ALBUMIN/GLOBULIN RATIO 0.3 (1.0-2.7); ALKALINE PHOSPHATASE 63 U/L (46-116); ANION GAP 9 mmol/L (5-15); ASPARTATE AMINO TRANSFERASE 28 U/L (15-37); BILIRUBIN,TOTAL 0.2 MG/DL (0.2-1.0); BLOOD UREA NITROGEN 20 mg/dL (7-18); CALCIUM 8.5 MG/DL (8.5-10.1); CARBON DIOXIDE 26 MMOL/L (21-32); CHLORIDE 113 MMOL/L (98-107); CREATININE 0.8 MG/DL (0.55-1.30); PHOSPHORUS 2.6 MG/DL (2.5-4.9); POTASSIUM 3.8 MMOL/L (3.5-5.1); SODIUM 148 MMOL/L (136-145)
--- NOTE | 2018-05-29 06:30 | NUR ---
RESPIRATORY NOTE: Received pt on MV, pt is trach with PTX 7, settings: AC 500,10,+5, 40%, AMBU bag bedside, spare trach bedside, inline SX intact and working, alarms are set and audible, spare trach bedside. Will continue to monitor.
--- NOTE | 2018-05-29 06:51 | General Progress Note ---
Assessment/Plan Problem List: (1) Diabetes mellitus ICD Codes: E11.9 - Type 2 diabetes mellitus without complications SNOMED: 24656620 (2) Chronic respiratory failure ICD Codes: J96.10 - Chronic respiratory failure, unspecified whether with hypoxia or hypercapnia SNOMED: 79630147 (3) Contracture of joint of multiple sites ICD Codes: M24.50 - Contracture, unspecified joint SNOMED: 12429741, 414358943 (4) Pneumonia ICD Codes: J18.9 - Pneumonia, unspecified organism SNOMED: 441767234 (5) Severe sepsis ICD Codes: A41.9 - Sepsis, unspecified organism; R65.20 - Severe sepsis without septic shock SNOMED: 00065946 (6) Vegetative state ICD Codes: R40.3 - Persistent vegetative state SNOMED: 13634762 (7) Cerebrovascular accident (CVA) ICD Codes: I63.9 - Cerebral infarction, unspecified SNOMED: 152320194 (8) Sepsis ICD Codes: A41.9 - Sepsis, unspecified organism SNOMED: 87238108 Assessment/Plan continue Levemir 15 units bid continue NISS every 4 hours Subjective ROS Limited/Unobtainable: Yes Allergies: Coded Allergies: No Known Allergies (Unverified , 05/27/18) Subjective events noted Item Value Date Time Bedside Blood Glucose 277 mg/dl H 05/29/18 0500 Bedside Blood Glucose 330 mg/dl H 05/29/18 0117 Bedside Blood Glucose 333 mg/dl H 05/28/18 2028 Bedside Blood Glucose 272 mg/dl H 05/28/18 1843 Bedside Blood Glucose 307 mg/dl H 05/28/18 1310 Bedside Blood Glucose 355 mg/dl H 05/28/18 0827 Bedside Blood Glucose 342 mg/dl H 05/28/18 0504 Bedside Blood Glucose 274 mg/dl H 05/28/18 0100 Objective Last 24 Hour Vital Signs Date Time Temp Pulse Resp B/P (MAP) Pulse Ox O2 Delivery O2 Flow Rate FiO2 05/29/18 05:46 99 21 Mechanical Ventilator 40 05/29/18 05:40 66 19 40 05/29/18 04:00 99.1 66 18 154/80 (104) 97 05/29/18 04:00 62 05/29/18 04:00 40 05/29/18 04:00 Mechanical Ventilator 05/29/18 03:30 62 17 40 05/29/18 01:10 60 16 40 05/29/18 00:00 Mechanical Ventilator 05/29/18 00:00 98.9 57 16 144/79 (100) 99 05/28/18 23:44 65 05/28/18 23:35 72 17 40 05/28/18 21:57 70 16 40 05/28/18 20:28 149/85 05/28/18 20:00 99.9 72 20 149/85 (106) 99 05/28/18 20:00 Mechanical Ventilator 05/28/18 20:00 40 05/28/18 19:06 70 14 40 05/28/18 19:04 72 05/28/18 16:52 70 19 40 05/28/18 16:00 74 05/28/18 16:00 40 05/28/18 16:00 98.2 72 17 142/75 (97) 100 05/28/18 16:00 Mechanical Ventilator 05/28/18 15:19 94 14 40 05/28/18 14:09 70 16 40 05/28/18 12:00 98.2 73 17 136/75 (95) 100 05/28/18 12:00 68 05/28/18 12:00 Mechanical Ventilator 05/28/18 12:00 40 05/28/18 10:51 82 16 40 05/28/18 09:05 78 18 40 05/28/18 08:25 139/72 05/28/18 08:00 Mechanical Ventilator 05/28/18 08:00 40 05/28/18 08:00 97.9 66 15 138/72 (94) 100 05/28/18 07:48 65 05/28/18 07:27 68 16 40 Intake and Output 05/28/18 05/29/18 18:59 06:59 Intake Total 525 ml 2058.36382 ml Output Total 600 ml 600 ml Balance -75 ml 1458.68481 ml Free Water 0 ml IV Total 0 ml 1333.08665 ml Tube Feeding 525 ml 225 ml Blood Product 500 ml Output Urine Total 600 ml 600 ml # Bowel Movements 3 2 Laboratory Tests 05/29/18 04:45: White Blood Count 13.1H, Red Blood Count 3.59L, Hemoglobin 8.6L, Hematocrit 27.3L, Mean Corpuscular Volume 76L, Mean Corpuscular Hemoglobin 24.0L, Mean Corpuscular Hemoglobin Concent 31.4L, Red Cell Distribution Width 17.9H, Platelet Count 271, Mean Platelet Volume 7.6, Neutrophils (%) (Auto) 76.7H, Lymphocytes (%) (Auto) 16.7L, Monocytes (%) (Auto) 4.0, Eosinophils (%) (Auto) 2.0, Basophils (%) (Auto) 0.6, Erythrocyte Sedimentation Rate 107H, Fibrinogen [ Pending], Miscellaneous Test 2 [Pending], Sodium Level 148H, Potassium Level 3.8 , Chloride Level 113H, Carbon Dioxide Level 26, Anion Gap 9, Blood Urea Nitrogen 20H, Creatinine 0.8, Estimat Glomerular Filtration Rate > 60, Glucose Level 268H, Calcium Level 8.5, Phosphorus Level 2.6, Magnesium Level 2.3, Total Bilirubin 0.2, Aspartate Amino Transf (AST/SGOT) 28, Alanine Aminotransferase ( ALT/SGPT) 33, Alkaline Phosphatase 63, Total Protein 6.7, Albumin 1.6L, Globulin 5.1, Albumin/Globulin Ratio 0.3L Height (Feet): 5 Height (Inches): 6.00 Weight (Pounds): 175 General Appearance: moderate distress Neck: normal alignment Cardiovascular: normal rate Respiratory/Chest: decreased breath sounds Abdomen: normal bowel sounds Objective Current Medications Medications (Trade) Dose Ordered Sig/Bhupinder Route PRN Reason Start Time Stop Time Status Last Admin Dose Admin Acetaminophen (Tylenol) 650 mg Q4H PRN GT fever 05/27/18 13:15 06/26/18 13:14 05/27/18 16:45 Al Hydroxide/Mg Hydroxide (Mylanta II) 30 ml Q6H PRN GT dyspepsia 05/27/18 13:15 06/26/18 13:14 Albuterol/ Ipratropium (Albuterol/ Ipratropium) 3 ml Q4H PRN HHN Shortness of Breath 05/27/18 13:15 06/01/18 13:14 Chlorhexidine Gluconate (Jasmin-Hex 2%) 1 applic DAILY@2000 TOPIC 05/28/18 20:00 06/27/18 19:59 05/28/18 20:26 Clonidine HCl (Catapres Tab) 0.1 mg EVERY 12 HOURS GT 05/27/18 21:00 06/26/18 20:59 05/28/18 20:28 Clonidine HCl (Catapres Tab) 0.1 mg Q4H PRN GT sbp more than 160 05/27/18 13:15 06/26/18 13:14 Dextrose (Dextrose 50%) 25 ml Q30M PRN IV Hypoglycemia 05/27/18 13:15 06/26/18 13:14 Dextrose (Dextrose 50%) 50 ml Q30M PRN IV Hypoglycemia 05/27/18 13:15 06/26/18 13:14 Heparin Sodium (Porcine) (Heparin 5000 units/ml) 5,000 units EVERY 12 HOURS SUBQ 05/27/18 21:00 06/26/18 20:59 05/28/18 20:26 Insulin Aspart (NovoLOG) Q4HR SUBQ 05/27/18 18:00 06/26/18 17:59 05/29/18 04:53 Ketorolac Tromethamine (Toradol 30mg) 30 mg Q6H PRN IV moderate pain 4-6 05/27/18 13:15 06/01/18 13:14 Levetiracetam (Keppra) 1,500 mg DAILY GT 05/28/18 09:00 06/27/18 08:59 05/28/18 08:20 Morphine Sulfate (Morphine Sulfate) 2 mg Q4H PRN IVP severe pain 7-10 05/27/18 13:15 06/03/18 13:14 Nitroglycerin (Ntg) 0.4 mg Q5M X 3 DOSES PRN SL Prn Chest Pain 05/27/18 13:15 06/26/18 13:14 Ondansetron HCl (Zofran) 4 mg Q6H PRN IVP Nausea & Vomiting 05/27/18 13:15 06/26/18 13:14 Piperacillin Sod/ Tazobactam Sod 3.375 gm/Sodium Chloride 110 ml @ 27.5 mls/hr Q8H IVPB 05/28/18 02:00 06/04/18 01:59 05/29/18 02:06 Polyethylene Glycol (Miralax) 17 gm HSPRN PRN GT Constipation 05/27/18 13:15 06/26/18 13:14 Sodium Chloride 1,000 ml @ 100 mls/hr Q10H IVLG 05/27/18 13:12 06/26/18 13:11 05/29/18 04:56 Temazepam (Restoril) 15 mg HSPRN PRN GT Insomnia 05/27/18 13:15 06/03/18 13:14 Vancomycin HCl (Vanco rx to dose) 1 ea DAILY PRN MISC Per rx protocol 05/27/18 21:30 06/26/18 21:29 Vancomycin HCl/ Dextrose 275 ml @ 183.333 mls/hr Q24H IVPB 05/28/18 20:00 06/02/18 19:59 05/28/18 21:25 Ayan Gillespie MD May 29, 2018 06:51
--- NOTE | 2018-05-29 07:02 | NUR ---
HAND-OFF: Report given to Jas Romero RN.
--- NOTE | 2018-05-29 07:05 | NUR ---
NURSE NOTES: Spoke with Dk from radiology regarding leaking midline. Site doesn't appear to be leaking as much. Dk started it could be d/t incision. He will come by later today to check status of leak.
--- NOTE | 2018-05-29 07:08 | NUR ---
NURSE NOTES: Received report from MELISA Choi. Patient is resting in bed, in stable condition. No s/sx of SOB, breathing is even and unlabored. Vent settings are as ordered. Per night nurse right upper arm midline is leaking, Dr. Weaver aware, with new order for for replacement. Bed is in lowest position, brakes engaged. Call light is kept within easy reach. Will continue to monitor patient.
[2018-05-29 08:00] VITALS: BP 170/80
[2018-05-29] MEDS: Heparin 5000 units/ml inj SUBQ SCH ×2 (09:00→20:11)
[2018-05-29] MEDS: levETIRAcetam 500mg/5ml Liquid GT SCH (09:19)
--- NOTE | 2018-05-29 11:19 | Diagnostic Imaging Report ---
Indication: Abdominal distention, abnormal white blood cell count, abnormal liver function tests and renal function tests Technique: Zuñiga-scale and duplex images of the upper abdomen were obtained Comparison: none Findings: Exam is limited due to bowel gas and overlying gastrostomy tube bandages. Gallbladder demonstrates comet tail artifact within the fundus. There is questionably a calcification within the lumen near the neck. Sonographic Barraza's sign could not be determined; patient is non-communicative Common bile duct measures 5 mm in diameter. No intrahepatic biliary ductal dilatation. Liver demonstrates normal echogenicity, no focal abnormality. It is somewhat enlarged. Portal vein and hepatic veins are patent. Pancreas is obscured by bowel gas. Spleen is unremarkable. Left kidney measures 11.7 cm in length. Right kidney measures 11 cm length. Both kidneys demonstrate normal echogenicity. Left kidney demonstrates a 3 mm echogenic focus within the lower pole cortex. There is a 7 mm echogenic focus within the upper pole renal sinus. No hydronephrosis. There is a small right renal cyst incidentally noted. Abdominal aorta is obscured by bowel gas . Impression: Limited exam, as described. Note nonvisualization of the pancreas and abdominal aorta Equivocal cholelithiasis. Common tail artifact within the gallbladder fundus suggests a focal area of adenomyomatosis. Negative for dilated bile ducts Mild hepatomegaly Suspect nonobstructive right upper pole renal calculus. There is probably a parenchymal calcification in the left lower pole as well. Incidental finding small right renal cyst
[2018-05-29 12:00] VITALS: BP 151/75
--- NOTE | 2018-05-29 12:13 | Diagnostic Imaging Report ---
Indication: Dyspnea Technique: One view of the chest Comparison: 05/27/2018 Findings: Left-sided pleural effusion is again demonstrated. The heart remains borderline enlarged. The aorta is tortuous and ectatic. Tracheostomy remains. Right lung and pleural space remain clear. Findings are unchanged Impression: Unchanged, over 2 days, findings as above.
[2018-05-29] MEDS ORDERED: Lidocaine 1% Plain 30 ml INJ SCH (14:00)
[2018-05-29] MEDS ORDERED: Heparin1,000 units/500ml Premix(Conc:2 units/ml) IV SCH (14:00)
[2018-05-29 16:00] VITALS: BP 158/85
--- NOTE | 2018-05-29 16:00 | NUR ---
NURSE NOTES: Right upper arm midline discontinued per order. Tubing intact, no active bleeding noted. Patient tolerated procedure. Will continue to monitor patient.
--- NOTE | 2018-05-29 16:03 | Pulmonolgy Critical Care Note ---
Critical Care - Asmt/Plan Problems: (1) Acute on chronic respiratory failure (2) Sepsis (3) Nosocomial pneumonia (4) Severe sepsis (5) Pneumonia (6) Vegetative state (7) Contracture of joint of multiple sites (8) Chronic respiratory failure (9) Diabetes mellitus (10) Cerebrovascular accident (CVA) Respiratory: monitor respiratory rate, adjust FIO2, CXR Cardiac: d/c surveillance monitor Renal: F/U I&O, keep IV fluid Infectious Disease: check cultures, continue antibiotics Gastrointestinal: continue feedings/current rate Neurologic: PRN Ativan, PRN Morphine Prophylaxis: Heparin Disposition: keep in ICU Time Spent (Minutes): 40 Notes Reviewed: renal Discussed with: nurses, consultants, upper caserproduct marketing programs manager - Objective Last 24 Hour Vital Signs Date Time Temp Pulse Resp B/P (MAP) Pulse Ox O2 Delivery O2 Flow Rate FiO2 05/29/18 15:22 61 17 40 05/29/18 13:23 66 17 40 05/29/18 12:00 40 05/29/18 12:00 99.1 63 18 151/75 (100) 99 05/29/18 12:00 Mechanical Ventilator 05/29/18 12:00 69 05/29/18 11:25 62 18 40 05/29/18 09:29 66 17 40 05/29/18 09:19 170/80 05/29/18 08:00 Mechanical Ventilator 05/29/18 08:00 40 05/29/18 08:00 99.0 68 18 170/80 (110) 98 05/29/18 07:47 69 05/29/18 07:05 69 18 40 05/29/18 05:46 99 21 Mechanical Ventilator 40 05/29/18 05:40 66 19 40 05/29/18 04:00 99.1 66 18 154/80 (104) 97 05/29/18 04:00 62 05/29/18 04:00 40 05/29/18 04:00 Mechanical Ventilator 05/29/18 03:30 62 17 40 05/29/18 01:10 60 16 40 05/29/18 00:00 Mechanical Ventilator 05/29/18 00:00 98.9 57 16 144/79 (100) 99 05/28/18 23:44 65 05/28/18 23:35 72 17 40 05/28/18 21:57 70 16 40 05/28/18 20:28 149/85 05/28/18 20:00 99.9 72 20 149/85 (106) 99 05/28/18 20:00 Mechanical Ventilator 05/28/18 20:00 40 05/28/18 19:06 70 14 40 05/28/18 19:04 72 05/28/18 16:52 70 19 40 Status: obtunded Condition: critical HEENT: atraumatic Lungs: clear Heart: HR/BP stable Abdomen: feeding tube Extremities: edema Decubiti: stage Micro: Microbiology Date/Time Source Procedure Growth Status 05/27/18 08:05 Blood Blood Culture - Preliminary Staphylococcus Sp Coag Neg Resulted 05/27/18 08:00 Blood Blood Culture - Preliminary Staphylococcus Sp Coag Neg Resulted 05/28/18 04:45 Sputum Gram Stain - Final Resulted 05/28/18 04:45 Sputum Culture - Preliminary Gram Negative Bacillus 1 Resulted 05/27/18 11:45 Nasal Nares Left MRSA Culture - Final NO METHICILLIN RESISTANT STAPH AUREUS... Complete 05/27/18 11:45 Rectum VRE Culture - Final Enterococcus Faecalis - Vre Complete 05/27/18 11:45 Rectum - Final NO CARBAPENEM-RESISTANT ENTEROBACTERI... Complete Accucheck: 225 Critical Care - Subjective ROS Limited/Unobtainable: Yes Condition: critical EKG Rhythm: Sinus Rhythm FI02: 40 Vent Support Breath Rate: 10 Vent Support Mode: AC Vent Tidal Volume: 500 Sputum Amount: Moderate PEEP: 5.0 PIP: 23 Tube Feeding Amount: 45 I&O: Intake and Output 05/28/18 05/29/18 19:00 07:00 Intake Total 530 ml 2013.29043 ml Output Total 600 ml 600 ml Balance -70 ml 1413.87447 ml Free Water 0 ml IV Total 0 ml 1333.78084 ml Tube Feeding 530 ml 180 ml Blood Product 500 ml Output Urine Total 600 ml 600 ml # Bowel Movements 3 2 Labs: Laboratory Tests Test 05/29/18 04:45 White Blood Count 13.1 K/UL (4.8-10.8) H Red Blood Count 3.59 M/UL (4.70-6.10) L Hemoglobin 8.6 G/DL (14.2-18.0) L Hematocrit 27.3 % (42.0-52.0) L Mean Corpuscular Volume 76 FL (80-99) L Mean Corpuscular Hemoglobin 24.0 PG (27.0-31.0) L Mean Corpuscular Hemoglobin Concent 31.4 G/DL (32.0-36.0) L Red Cell Distribution Width 17.9 % (11.6-14.8) H Platelet Count 271 K/UL (150-450) Mean Platelet Volume 7.6 FL (6.5-10.1) Neutrophils (%) (Auto) 76.7 % (45.0-75.0) H Lymphocytes (%) (Auto) 16.7 % (20.0-45.0) L Monocytes (%) (Auto) 4.0 % (1.0-10.0) Eosinophils (%) (Auto) 2.0 % (0.0-3.0) Basophils (%) (Auto) 0.6 % (0.0-2.0) Erythrocyte Sedimentation Rate 107 MM/HR (0-20) H Fibrinogen 653 mg/dL (200-400) H Sodium Level 148 MMOL/L (136-145) H Potassium Level 3.8 MMOL/L (3.5-5.1) Chloride Level 113 MMOL/L (98-107) H Carbon Dioxide Level 26 MMOL/L (21-32) Anion Gap 9 mmol/L (5-15) Blood Urea Nitrogen 20 mg/dL (7-18) H Creatinine 0.8 MG/DL (0.55-1.30) Estimat Glomerular Filtration Rate > 60 mL/min (>60) Glucose Level 268 MG/DL (74-106) H Calcium Level 8.5 MG/DL (8.5-10.1) Phosphorus Level 2.6 MG/DL (2.5-4.9) Magnesium Level 2.3 MG/DL (1.8-2.4) Total Bilirubin 0.2 MG/DL (0.2-1.0) Aspartate Amino Transf (AST/SGOT) 28 U/L (15-37) Alanine Aminotransferase (ALT/SGPT) 33 U/L (12-78) Alkaline Phosphatase 63 U/L (46-116) Total Protein 6.7 G/DL (6.4-8.2) Albumin 1.6 G/DL (3.4-5.0) L Globulin 5.1 g/dL Albumin/Globulin Ratio 0.3 (1.0-2.7) L Yomi Odom MD May 29, 2018 16:03
--- NOTE | 2018-05-29 16:09 | Diagnostic Imaging Report ---
Indications: Needs long-term IV access Technique: Procedure performed at bedside. Procedural timeout performed. Ultrasound confirms patent compressible left brachial vein. Total sterile technique, including sterile probe cover and sterile gel, sterile gloves, hand hygiene, hat, mask,, sterile gown, large sterile drape, and preparation with 2% chlorhexidine utilized. Local anesthesia with 1% lidocaine. Under real-time ultrasound guidance, puncture vein using 21-gauge needle, passage 0.018 guidewire, exchange for 4 Urdu peel-away sheath. 4 Urdu Bard dual-lumen power PICC cut to 43 cm. It was inserted through the peel-away sheath. Peel-away sheath and guidewire removed. Catheter fixed to the skin. Both catheter ports aspirated and flushed. Patient tolerated procedure well, without immediate complication. Followup chest x-ray obtained, documents catheter tip position at the cavoatrial junction Impression: Successful bedside placement of left arm PICC under sonographic guidance, as described above.
--- NOTE | 2018-05-29 17:58 | General Progress Note ---
Assessment/Plan Assessment/Plan Assessment and Recs: # Anemia of chronic disease due to underlying chronic medical issues, multifactorial --> Anemia workup has been ordered, rule out gi bleed, it has been reviewed --> No evidence of hemolysis is noted, peripheral smear has been reviewed. --> Hgb goal >7. Transfuse prn. --> Epogen or iron at this time is not particularly indicated --> Medications have been reviewed --> evaluate with Gi team prn --> transfuse if hgb is < 7 (will trend CBC daily) # Leukocytosis/Elevated white blood cell count, unspecified likely related to underlying stress reaction, smoking v more likely infection (PNA) --> have reviewed peripheral smear and bandemia/neutrophilia noted --> continue antibiotics if they have been started by ID team --> monitor for resolution # Acute on chronic respiratory failure --> on abx as per id --> pulm//cc on the case for manageemnt as well # Nosocomial pneumonia --> s/p abx treatment # Severe sepsis w/ pna --> on abx # Cerebrovascular accident (CVA) # Vegetative state # Contracture of joint of multiple sites The timing of this note does not necessarily reflect the time of the patient was seen. Greatly appreciate consultation! Subjective Constitutional: Denies: no symptoms, chills, diaphoresis, fever, malaise, weakness, other HEENT: Denies: no symptoms, eye pain, blurred vision, tearing, double vision, ear pain, ear discharge, nose pain, nose congestion, throat pain, throat swelling, mouth pain, mouth swelling, other Cardiovascular: Denies: no symptoms, chest pain, edema, irregular heart rate, lightheadedness, palpitations, syncope, other Respiratory: Denies: no symptoms, cough, orthopnea, shortness of breath, SOB with excertion, SOB at rest, sputum, stridor, wheezing, other Genitourinary: Denies: no symptoms, burning, discharge, frequency, flank pain, hematuria, incontinence, pain, urgency, other Neurologic/Psychiatric: Denies: no symptoms, anxiety, depressed, emotional problems, headache, numbness, paresthesia, pre-existing deficit, seizure, tingling, tremors, weakness, other Endocrine: Denies: no symptoms, excessive sweating, flushing, intolerance to cold, intolerance to heat, increased hunger, increased thirst, increased urine, unexplained weight gain, unexplained weight loss, other Allergies: Coded Allergies: No Known Allergies (Unverified , 05/27/18) Subjective 05/29: midline was leaking better, now in better position, no complaints Objective Last 24 Hour Vital Signs Date Time Temp Pulse Resp B/P (MAP) Pulse Ox O2 Delivery O2 Flow Rate FiO2 05/29/18 16:59 60 21 40 05/29/18 16:00 60 05/29/18 15:22 61 17 40 05/29/18 13:23 66 17 40 05/29/18 12:00 40 05/29/18 12:00 99.1 63 18 151/75 (100) 99 05/29/18 12:00 Mechanical Ventilator 05/29/18 12:00 69 05/29/18 11:25 62 18 40 05/29/18 09:29 66 17 40 05/29/18 09:19 170/80 05/29/18 08:00 Mechanical Ventilator 05/29/18 08:00 40 05/29/18 08:00 99.0 68 18 170/80 (110) 98 05/29/18 07:47 69 05/29/18 07:05 69 18 40 05/29/18 05:46 99 21 Mechanical Ventilator 40 05/29/18 05:40 66 19 40 05/29/18 04:00 99.1 66 18 154/80 (104) 97 05/29/18 04:00 62 05/29/18 04:00 40 05/29/18 04:00 Mechanical Ventilator 05/29/18 03:30 62 17 40 05/29/18 01:10 60 16 40 05/29/18 00:00 Mechanical Ventilator 05/29/18 00:00 98.9 57 16 144/79 (100) 99 05/28/18 23:44 65 05/28/18 23:35 72 17 40 05/28/18 21:57 70 16 40 05/28/18 20:28 149/85 05/28/18 20:00 99.9 72 20 149/85 (106) 99 05/28/18 20:00 Mechanical Ventilator 05/28/18 20:00 40 05/28/18 19:06 70 14 40 05/28/18 19:04 72 Intake and Output 05/28/18 05/29/18 19:00 07:00 Intake Total 530 ml 2013.69896 ml Output Total 600 ml 600 ml Balance -70 ml 1413.60965 ml Free Water 0 ml IV Total 0 ml 1333.80311 ml Tube Feeding 530 ml 180 ml Blood Product 500 ml Output Urine Total 600 ml 600 ml # Bowel Movements 3 2 Laboratory Tests 05/29/18 04:45: White Blood Count 13.1H, Red Blood Count 3.59L, Hemoglobin 8.6L, Hematocrit 27.3L, Mean Corpuscular Volume 76L, Mean Corpuscular Hemoglobin 24.0L, Mean Corpuscular Hemoglobin Concent 31.4L, Red Cell Distribution Width 17.9H, Platelet Count 271, Mean Platelet Volume 7.6, Neutrophils (%) (Auto) 76.7H, Lymphocytes (%) (Auto) 16.7L, Monocytes (%) (Auto) 4.0, Eosinophils (%) (Auto) 2.0, Basophils (%) (Auto) 0.6, Erythrocyte Sedimentation Rate 107H, Fibrinogen 653H, Sodium Level 148H, Potassium Level 3.8, Chloride Level 113H, Carbon Dioxide Level 26, Anion Gap 9, Blood Urea Nitrogen 20H, Creatinine 0.8, Estimat Glomerular Filtration Rate > 60, Glucose Level 268H, Calcium Level 8.5, Phosphorus Level 2.6, Magnesium Level 2.3, Total Bilirubin 0.2, Aspartate Amino Transf (AST/SGOT) 28, Alanine Aminotransferase (ALT/SGPT) 33, Alkaline Phosphatase 63, Total Protein 6.7, Albumin 1.6L, Globulin 5.1, Albumin/Globulin Ratio 0.3L Height (Feet): 5 Height (Inches): 6.00 Weight (Pounds): 175 Objective PE: Vitals: reviewed, stable General Appearance: NAD HEENT: normocephalic, atraumatic Neck: non-tender, normal alignment Respiratory/Chest: crackles b/l noted, ++ trach/vent Cardiovascular/Chest: normal peripheral pulses, normal rate Abdomen: normal bowel sounds, soft, nontender ++ peg Extremities: normal range of motion Trey Tripathi MD May 29, 2018 17:58
--- NOTE | 2018-05-29 19:38 | NUR ---
NURSE NOTES: Received report from Mauro RN, pt. in bed obtunded, no signs or symptoms of acute cardiac or respiratory distress noted, pt. on cardiac monitoring, pt. appears to be tolerating current vent settings well, AC 10, TV 500, FIo2 @40% and peep 5- no distress noted, G tube has Glucerna 1.2 running at 55cc/hr- goal is at 65cc/hr- no residual noted, dressings dry and intact, pt. is clean and dry, bed in lowest position and call light within easy reach, bed alarm on, side rails up x's3 and safety brakes engaged, ANGELES PICC intact and patent running NS at 100cc/hr. All needs attended to, safety measures continued, will continue with plan of care.
[2018-05-29 20:00] VITALS: BP 140/81
[2018-05-29] MEDS ORDERED: Dyna-Hex 2% Top Sol 2oz TOPIC SCH (20:00)
[2018-05-29] MEDS: Vancomycin 1.25gm Premix IVPB SCH (20:04)
[2018-05-29] MEDS: Dyna-Hex 2% Top Sol 2oz TOPIC SCH (20:04)
[2018-05-30] VITALS (9 sets, daily range): BP systolic 121–186; BP diastolic 62–84
[2018-05-30] MEDS ORDERED: Isovue-300 100ml vial INJ PRN (00:15)
[2018-05-30] MEDS: Acetaminophen 650mg/20.3ml GT PRN (00:21)
--- NOTE | 2018-05-30 00:51 | NUR ---
NURSE NOTES: reassessed patients temp after mid-night vitals- B/P trending up, now 162/73- will administer Catapres see eMAR- pt. remains stable- will continue to monitor pt. and with plan of care.
[2018-05-30] MEDS: Piperacillin/Tazobactam 3.375 GM in NS 110 ML IVPB SCH ×3 (00:59→17:10)
[2018-05-30] MEDS: NovoLOG Insulin Flexpen SUBQ SCH ×10 (01:03→20:46)
--- NOTE | 2018-05-30 06:20 | NUR ---
NURSE NOTES: Left message for next of Kin Teo- to call back for a consent- details not left over the phone- waiting for call back from family member.
--- NOTE | 2018-05-30 07:17 | NUR ---
HAND-OFF: Report given to Lita VINCENT/ RN- pt. remains stable and no signs of distress noted- asware to f/u on consetn for CT.
--- NOTE | 2018-05-30 07:20 | NUR ---
NURSE NOTES: Patient received from Jerri Foley RN. Patient is resting comfortably and laying in bed. Bed at lowest position with call light in reach. Bed at its lowest position and call light in reach. Will continue to monitor.
--- NOTE | 2018-05-30 08:15 | General Progress Note ---
Assessment/Plan Problem List: (1) Diabetes mellitus ICD Codes: E11.9 - Type 2 diabetes mellitus without complications SNOMED: 25948596 (2) Chronic respiratory failure ICD Codes: J96.10 - Chronic respiratory failure, unspecified whether with hypoxia or hypercapnia SNOMED: 56969261 (3) Contracture of joint of multiple sites ICD Codes: M24.50 - Contracture, unspecified joint SNOMED: 76289839, 615116928 (4) Pneumonia ICD Codes: J18.9 - Pneumonia, unspecified organism SNOMED: 105285899 (5) Severe sepsis ICD Codes: A41.9 - Sepsis, unspecified organism; R65.20 - Severe sepsis without septic shock SNOMED: 77136346 (6) Vegetative state ICD Codes: R40.3 - Persistent vegetative state SNOMED: 25412162 (7) Cerebrovascular accident (CVA) ICD Codes: I63.9 - Cerebral infarction, unspecified SNOMED: 657165836 (8) Sepsis ICD Codes: A41.9 - Sepsis, unspecified organism SNOMED: 46780714 Assessment/Plan add Novolog 6 units every 4 hours continue NISS every 4 hours Subjective ROS Limited/Unobtainable: Yes Allergies: Coded Allergies: No Known Allergies (Unverified , 05/27/18) Subjective events noted glucose values elevated no longer on Levemir - not sure why Item Value Date Time Bedside Blood Glucose 379 mg/dl H 05/30/18 0501 Bedside Blood Glucose 334 mg/dl H 05/30/18 0103 Bedside Blood Glucose 288 mg/dl H 05/29/18 2055 Bedside Blood Glucose 255 mg/dl H 05/29/18 1742 Bedside Blood Glucose 225 mg/dl H 05/29/18 1252 Bedside Blood Glucose 231 mg/dl H 05/29/18 0921 Bedside Blood Glucose 277 mg/dl H 05/29/18 0500 Objective Last 24 Hour Vital Signs Date Time Temp Pulse Resp B/P (MAP) Pulse Ox O2 Delivery O2 Flow Rate FiO2 05/30/18 07:17 61 18 40 05/30/18 04:52 59 20 40 05/30/18 04:00 98.4 53 18 121/63 (82) 100 05/30/18 04:00 53 05/30/18 04:00 40 05/30/18 04:00 Mechanical Ventilator 4/6/19 03:06 63 19 40 05/30/18 02:46 148/73 (98) 05/30/18 01:06 61 17 40 05/30/18 00:59 162/73 05/30/18 00:51 98.1 05/30/18 00:51 98.1 162/73 (102) 05/30/18 00:00 40 05/30/18 00:00 100.6 60 22 152/63 (92) 100 05/30/18 00:00 59 05/30/18 00:00 Mechanical Ventilator 05/29/18 23:15 61 20 40 05/29/18 21:02 62 20 40 05/29/18 20:53 158/85 05/29/18 20:00 40 05/29/18 20:00 Mechanical Ventilator 05/29/18 20:00 98.4 61 21 140/81 (100) 100 05/29/18 20:00 63 05/29/18 19:00 59 20 40 05/29/18 16:59 60 21 40 05/29/18 16:00 Mechanical Ventilator 05/29/18 16:00 40 05/29/18 16:00 97.0 60 18 158/85 (109) 99 05/29/18 16:00 60 05/29/18 15:22 61 17 40 05/29/18 13:23 66 17 40 05/29/18 12:00 40 05/29/18 12:00 99.1 63 18 151/75 (100) 99 05/29/18 12:00 Mechanical Ventilator 05/29/18 12:00 69 05/29/18 11:25 62 18 40 05/29/18 09:29 66 17 40 05/29/18 09:19 170/80 Intake and Output 05/29/18 05/30/18 19:00 07:00 Intake Total 440 ml 2006.6 ml Output Total 500 ml 800 ml Balance -60 ml 1206.6 ml Free Water 50 ml IV Total 1296.6 ml Tube Feeding 440 ml 660 ml Output Urine Total 500 ml 800 ml # Voids 1 # Bowel Movements 2 Height (Feet): 5 Height (Inches): 6.00 Weight (Pounds): 175 General Appearance: obese Neck: normal alignment Cardiovascular: normal rate Respiratory/Chest: decreased breath sounds Abdomen: normal bowel sounds Objective Current Medications Medications (Trade) Dose Ordered Sig/Bhupinder Route PRN Reason Start Time Stop Time Status Last Admin Dose Admin Acetaminophen (Tylenol) 650 mg Q4H PRN GT fever 05/27/18 13:15 06/26/18 13:14 05/30/18 00:21 Al Hydroxide/Mg Hydroxide (Mylanta II) 30 ml Q6H PRN GT dyspepsia 05/27/18 13:15 06/26/18 13:14 Albuterol/ Ipratropium (Albuterol/ Ipratropium) 3 ml Q4H PRN HHN Shortness of Breath 05/27/18 13:15 06/01/18 13:14 Barium Sulfate (Readi-Cat 2) 450 ml NOW PRN ORAL Radiology Procedure 05/30/18 00:15 06/01/18 00:07 Chlorhexidine Gluconate (Jasmin-Hex 2%) 1 applic DAILY@2000 TOPIC 05/28/18 20:00 06/27/18 19:59 05/29/18 20:04 Clonidine HCl (Catapres Tab) 0.1 mg EVERY 12 HOURS GT 05/27/18 21:00 06/26/18 20:59 05/29/18 20:53 Clonidine HCl (Catapres Tab) 0.1 mg Q4H PRN GT sbp more than 160 05/27/18 13:15 06/26/18 13:14 05/30/18 00:59 Dextrose 1,000 ml @ 75 mls/hr [id number] IV 05/29/18 20:00 06/28/18 19:59 05/29/18 20:04 Dextrose (Dextrose 50%) 25 ml Q30M PRN IV Hypoglycemia 05/27/18 13:15 06/26/18 13:14 Dextrose (Dextrose 50%) 50 ml Q30M PRN IV Hypoglycemia 05/27/18 13:15 06/26/18 13:14 Folic Acid (Folate) 1 mg DAILY ORAL 05/30/18 09:00 06/29/18 08:59 Heparin Sodium (Porcine) (Heparin 5000 units/ml) 5,000 units EVERY 12 HOURS SUBQ 05/27/18 21:00 06/26/18 20:59 05/29/18 20:11 Insulin Aspart (NovoLOG) Q4HR SUBQ 05/27/18 18:00 5/3/19 17:59 05/30/18 05:01 Iopamidol (Isovue-300 100ml) 100 ml NOW PRN INJ Radiology Procedure 05/30/18 00:15 Ketorolac Tromethamine (Toradol 30mg) 30 mg Q6H PRN IV moderate pain 4-6 05/27/18 13:15 06/01/18 13:14 Levetiracetam (Keppra) 1,500 mg DAILY GT 05/28/18 09:00 06/27/18 08:59 05/29/18 09:19 Morphine Sulfate (Morphine Sulfate) 2 mg Q4H PRN IVP severe pain 7-10 05/27/18 13:15 06/03/18 13:14 Nitroglycerin (Ntg) 0.4 mg Q5M X 3 DOSES PRN SL Prn Chest Pain 05/27/18 13:15 06/26/18 13:14 Ondansetron HCl (Zofran) 4 mg Q6H PRN IVP Nausea & Vomiting 05/27/18 13:15 06/26/18 13:14 Piperacillin Sod/ Tazobactam Sod 3.375 gm/Sodium Chloride 110 ml @ 27.5 mls/hr Q8H IVPB 05/28/18 02:00 06/04/18 01:59 05/30/18 00:59 Polyethylene Glycol (Miralax) 17 gm HSPRN PRN GT Constipation 05/27/18 13:15 06/26/18 13:14 Temazepam (Restoril) 15 mg HSPRN PRN GT Insomnia 05/27/18 13:15 06/03/18 13:14 Vancomycin HCl (Vanco rx to dose) 1 ea DAILY PRN MISC Per rx protocol 05/27/18 21:30 06/26/18 21:29 Vancomycin HCl/ Dextrose 275 ml @ 183.333 mls/hr Q24H IVPB 05/28/18 20:00 06/02/18 19:59 05/29/18 20:04 Ayan Gillespie MD May 30, 2018 08:15
--- NOTE | 2018-05-30 08:41 | Diagnostic Imaging Report ---
EXAM: XR Chest, 1 View CLINICAL HISTORY: INFECT TECHNIQUE: Frontal view of the chest. COMPARISON: Chest x-ray, 05/29/18 1522 FINDINGS: Lungs: Hypoventilatory lungs. Similar left lower lung atelectasis/consolidation. Pleural space: Small left pleural effusion, slightly more loculated. No pneumothorax. Heart: Unremarkable. No cardiomegaly. Mediastinum: Unremarkable. Bones/joints: Unremarkable. Tubes, lines and devices: Tracheostomy tube. Stable left PICC line. IMPRESSION: 1. Hypoventilatory lungs. Similar left lower lung atelectasis/consolidation. 2. Small left pleural effusion, slightly more loculated.
[2018-05-30] MEDS: levETIRAcetam 500mg/5ml Liquid GT SCH (09:09)
[2018-05-30] MEDS: Heparin 5000 units/ml inj SUBQ SCH ×2 (09:10→20:42)
--- NOTE | 2018-05-30 10:16 | NUR ---
CASE MANAGEMENT: REVIEW 05/30/2018 SI:SEPSIS. PNA. T 98.1 HR 55 RR 24 B/P 149/78 SATS 100% ON MECH VENT FiO2 40 NO LABS TODAY IS: IVF @ 75 mL/HR INSULIN ASPART SUBQ AC/HS CATAPRES GT Q12H KEPPRA GT QD VANCO UV Q24H INSULIN ASPART SUBQ Q4H ZOSYN IV Q4H SDU
--- NOTE | 2018-05-30 10:39 | Pulmonolgy Critical Care Note ---
Critical Care - Asmt/Plan Problems: (1) Acute on chronic respiratory failure (2) Sepsis (3) Nosocomial pneumonia (4) Severe sepsis (5) Pneumonia (6) Vegetative state (7) Contracture of joint of multiple sites (8) Chronic respiratory failure (9) Diabetes mellitus (10) Cerebrovascular accident (CVA) Respiratory: monitor respiratory rate, adjust FIO2, CXR Cardiac: start pressors, continue to monitor HR/BP Renal: F/U I&O Infectious Disease: check cultures Gastrointestinal: continue feedings/current rate Endocrine: monitor blood sugar, check HgA1C Neurologic: PRN Ativan, PRN Morphine Prophylaxis: Protonix Time Spent (Minutes): 30 Notes Reviewed: cardio, renal Discussed with: consultants, gearcase assemblerinpatient care manager rn - Objective Last 24 Hour Vital Signs Date Time Temp Pulse Resp B/P (MAP) Pulse Ox O2 Delivery O2 Flow Rate FiO2 05/30/18 09:10 63 16 40 05/30/18 09:09 149/78 05/30/18 08:00 40 05/30/18 08:00 98.1 55 24 149/78 (101) 100 05/30/18 08:00 Mechanical Ventilator 05/30/18 07:39 56 05/30/18 07:17 61 18 40 05/30/18 04:52 59 20 40 05/30/18 04:00 98.4 53 18 121/63 (82) 100 05/30/18 04:00 53 05/30/18 04:00 40 05/30/18 04:00 Mechanical Ventilator 05/30/18 03:06 63 19 40 05/30/18 02:46 148/73 (98) 05/30/18 01:06 61 17 40 05/30/18 00:59 162/73 05/30/18 00:51 98.1 05/30/18 00:51 98.1 162/73 (102) 05/30/18 00:00 40 05/30/18 00:00 100.6 60 22 152/63 (92) 100 05/30/18 00:00 59 05/30/18 00:00 Mechanical Ventilator 05/29/18 23:15 61 20 40 05/29/18 21:02 62 20 40 05/29/18 20:53 158/85 05/29/18 20:00 40 05/29/18 20:00 Mechanical Ventilator 05/29/18 20:00 98.4 61 21 140/81 (100) 100 05/29/18 20:00 63 05/29/18 19:00 59 20 40 05/29/18 16:59 60 21 40 05/29/18 16:00 Mechanical Ventilator 05/29/18 16:00 40 05/29/18 16:00 97.0 60 18 158/85 (109) 99 05/29/18 16:00 60 05/29/18 15:22 61 17 40 05/29/18 13:23 66 17 40 05/29/18 12:00 40 05/29/18 12:00 99.1 63 18 151/75 (100) 99 05/29/18 12:00 Mechanical Ventilator 05/29/18 12:00 69 05/29/18 11:25 62 18 40 Status: awake Condition: critical Neck: full ROM Lungs: clear Heart: HR/BP stable, regular Abdomen: non-tender, active bowel sounds Extremities: edema Decubiti: location Micro: Microbiology Date/Time Source Procedure Growth Status 05/29/18 04:50 Blood Blood Culture - Preliminary Resulted 05/28/18 04:45 Sputum Gram Stain - Final Resulted 05/28/18 04:45 Sputum Culture - Preliminary Gram Negative Bacillus 1 Usual Upper Respiratory Thea Resulted 05/27/18 11:45 Nasal Nares Left MRSA Culture - Final NO METHICILLIN RESISTANT STAPH AUREUS... Complete 05/27/18 11:45 Rectum VRE Culture - Final Enterococcus Faecalis - Vre Complete 05/27/18 11:45 Rectum - Final NO CARBAPENEM-RESISTANT ENTEROBACTERI... Complete Accucheck: 379 Critical Care - Subjective ROS Limited/Unobtainable: Yes Condition: critical EKG Rhythm: Sinus Rhythm FI02: 40 Vent Support Breath Rate: 10 Vent Support Mode: AC Vent Tidal Volume: 500 Sputum Amount: Small PEEP: 5.0 PIP: 29 Tube Feeding Amount: 55 I&O: Intake and Output 05/29/18 05/30/18 18:59 06:59 Intake Total 385 ml 1931.6 ml Output Total 500 ml 800 ml Balance -115 ml 1131.6 ml Free Water 50 ml IV Total 1221.6 ml Tube Feeding 385 ml 660 ml Output Urine Total 500 ml 800 ml # Voids 1 # Bowel Movements 2 Yomi Odom MD May 30, 2018 10:39
--- NOTE | 2018-05-30 14:58 | Infectious Diseases Prog Note ---
Assessment/Plan Assessment/Plan ASSESSMENT/PLAN: 1. sepsis, c d stripper bacteremia, picc line new, ? sbe, gram neg pna, sirs, leukocytosis, fevers - vancomycin plus zosyn - f/u on cultures, labs and chest x-ray - check echo - d/w RN 2. Wound care protocol. 3. Trach, vent, and respiratory failure. 4. Dysphagia, G-tube. 5. CVA. 6. Poorly responsive. 7. Diabetes mellitus. 8. Hypertension. 9. Blood sugar and blood pressure treatment per primary. 10. Contractures. 11. Weakness secondary to CVA. 12. Chronic respiratory failure. 13. Vegetative state. 14. The patient currently is a full code. 15. Past medical history is noted. 16. No known allergies. 17. Social history is negative. 18. Family history is noncontributory. 19. MAR is noted. 20. Case was discussed with Dr. Weaver. 21. Continue treatment per primary consultants. Subjective Constitutional: Reports: fever, fatigue, other - on vent HEENT: Reports: congestion Respiratory: Reports: shortness of breath Cardiovascular: Denies: chest pain Gastrointestinal/Abdominal: Denies: nausea, vomiting Genitourinary: Reports: other - + foely Psychiatric: Reports: other - na Skin: Denies: rash Hematologic: Denies: bleeding Musculoskeletal: Reports: pain Allergies: Coded Allergies: No Known Allergies (Unverified , 05/27/18) Objective Vital Signs Last 24 Hour Vital Signs Date Time Temp Pulse Resp B/P (MAP) Pulse Ox O2 Delivery O2 Flow Rate FiO2 05/30/18 13:08 61 20 40 05/30/18 12:43 186/80 05/30/18 12:04 74 05/30/18 12:00 40 05/30/18 12:00 Mechanical Ventilator 05/30/18 12:00 98.4 61 22 186/80 (115) 97 05/30/18 11:18 65 24 40 05/30/18 09:10 63 16 40 05/30/18 09:09 149/78 05/30/18 08:00 40 05/30/18 08:00 98.1 55 24 149/78 (101) 100 05/30/18 08:00 Mechanical Ventilator 05/30/18 07:39 56 05/30/18 07:17 61 18 40 05/30/18 04:52 59 20 40 05/30/18 04:00 98.4 53 18 121/63 (82) 100 05/30/18 04:00 53 05/30/18 04:00 40 05/30/18 04:00 Mechanical Ventilator 05/30/18 03:06 63 19 40 05/30/18 02:46 148/73 (98) 05/30/18 01:06 61 17 40 05/30/18 00:59 162/73 05/30/18 00:51 98.1 05/30/18 00:51 98.1 162/73 (102) 05/30/18 00:00 40 05/30/18 00:00 100.6 60 22 152/63 (92) 100 05/30/18 00:00 59 05/30/18 00:00 Mechanical Ventilator 05/29/18 23:15 61 20 40 05/29/18 21:02 62 20 40 05/29/18 20:53 158/85 05/29/18 20:00 40 05/29/18 20:00 Mechanical Ventilator 05/29/18 20:00 98.4 61 21 140/81 (100) 100 05/29/18 20:00 63 05/29/18 19:00 59 20 40 05/29/18 16:59 60 21 40 05/29/18 16:00 Mechanical Ventilator 05/29/18 16:00 40 05/29/18 16:00 97.0 60 18 158/85 (109) 99 05/29/18 16:00 60 05/29/18 15:22 61 17 40 Height (Feet): 5 Height (Inches): 6.00 Weight (Pounds): 175 General Appearance: other HEENT: normocephalic, atraumatic, no JVD, status post trach Respiratory/Chest: crackles/rales, rhonchi - bilaterally Cardiovascular: normal rate, regular rhythm, no gallop/murmur, no JVD Abdomen: normal bowel sounds, soft, non tender, no organomegaly, non distended Genitourinary: other - + olmos - urine slt cloudy Extremities: no cyanosis Skin: no rash Neurologic/Psychiatric: enterprise mobility architect II-XII grossly normal, motor weakness Lymphatic: no neck adenopathy Musculoskeletal: no effusion Objective Chest x-ray - 05/30/18 - EXAM: XR Chest, 1 View CLINICAL HISTORY: INFECT TECHNIQUE: Frontal view of the chest. COMPARISON: Chest x-ray, 05/29/18 1522 FINDINGS: Lungs: Hypoventilatory lungs. Similar left lower lung atelectasis/consolidation. Pleural space: Small left pleural effusion, slightly more loculated. No pneumothorax. Heart: Unremarkable. No cardiomegaly. Mediastinum: Unremarkable. Bones/joints: Unremarkable. Tubes, lines and devices: Tracheostomy tube. Stable left PICC line. IMPRESSION: 1. Hypoventilatory lungs. Similar left lower lung atelectasis/consolidation. 2. Small left pleural effusion, slightly more loculated. Microbiology Date/Time Source Procedure Growth Status 05/29/18 04:50 Blood Blood Culture - Preliminary Resulted 05/28/18 04:45 Sputum Gram Stain - Final Resulted 05/28/18 04:45 Sputum Culture - Preliminary Gram Negative Bacillus 1 Usual Upper Respiratory Thea Resulted 05/27/18 11:45 Rectum VRE Culture - Final Enterococcus Faecalis - Vre Complete Microbiology Date/Time Source Procedure Growth Status 05/29/18 04:50 Blood Blood Culture - Preliminary Resulted 05/28/18 04:45 Sputum Gram Stain - Final Resulted 05/28/18 04:45 Sputum Culture - Preliminary Gram Negative Bacillus 1 Usual Upper Respiratory Thea Resulted Labs Test 05/28/18 03:40 05/29/18 04:45 White Blood Count 18.5 K/UL (4.8-10.8) 13.1 K/UL (4.8-10.8) Red Blood Count 3.30 M/UL (4.70-6.10) 3.59 M/UL (4.70-6.10) Hemoglobin 7.3 G/DL (14.2-18.0) 8.6 G/DL (14.2-18.0) Hematocrit 24.4 % (42.0-52.0) 27.3 % (42.0-52.0) Mean Corpuscular Volume 74 FL (80-99) 76 FL (80-99) Mean Corpuscular Hemoglobin 22.2 PG (27.0-31.0) 24.0 PG (27.0-31.0) Mean Corpuscular Hemoglobin Concent 30.0 G/DL (32.0-36.0) 31.4 G/DL (32.0-36.0) Red Cell Distribution Width 17.4 % (11.6-14.8) 17.9 % (11.6-14.8) Platelet Count 291 K/UL (150-450) 271 K/UL (150-450) Mean Platelet Volume 7.7 FL (6.5-10.1) 7.6 FL (6.5-10.1) Neutrophils (%) (Auto) % (45.0-75.0) 76.7 % (45.0-75.0) Lymphocytes (%) (Auto) % (20.0-45.0) 16.7 % (20.0-45.0) Monocytes (%) (Auto) % (1.0-10.0) 4.0 % (1.0-10.0) Eosinophils (%) (Auto) % (0.0-3.0) 2.0 % (0.0-3.0) Basophils (%) (Auto) % (0.0-2.0) 0.6 % (0.0-2.0) Differential Total Cells Counted 100 Neutrophils % (Manual) 81 % (45-75) Lymphocytes % (Manual) 9 % (20-45) Monocytes % (Manual) 8 % (1-10) Eosinophils % (Manual) 2 % (0-3) Basophils % (Manual) 0 % (0-2) Band Neutrophils 0 % (0-8) Other Cell Type Pathologist review Platelet Estimate Adequate Platelet Morphology Normal Polychromasia 1+ Hypochromasia 1+ Anisocytosis 1+ Microcytosis 1+ Sodium Level 147 MMOL/L (136-145) 148 MMOL/L (136-145) Potassium Level 3.2 MMOL/L (3.5-5.1) 3.8 MMOL/L (3.5-5.1) Chloride Level 111 MMOL/L (98-107) 113 MMOL/L (98-107) Carbon Dioxide Level 25 MMOL/L (21-32) 26 MMOL/L (21-32) Anion Gap 11 mmol/L (5-15) 9 mmol/L (5-15) Blood Urea Nitrogen 21 mg/dL (7-18) 20 mg/dL (7-18) Creatinine 0.8 MG/DL (0.55-1.30) 0.8 MG/DL (0.55-1.30) Estimat Glomerular Filtration Rate > 60 mL/min (>60) > 60 mL/min (>60) Glucose Level 296 MG/DL (74-106) 268 MG/DL (74-106) Hemoglobin A1c 8.7 % (4.3-6.0) Calcium Level 8.1 MG/DL (8.5-10.1) 8.5 MG/DL (8.5-10.1) Iron Level 239 ug/dL (50-175) Total Iron Binding Capacity 257 ug/dL (250-450) Percent Iron Saturation 93 % (15-50) Unsaturated Iron Binding 18 ug/dL (112-346) Ferritin 202 NG/ML (8-388) Total Bilirubin 0.1 MG/DL (0.2-1.0) 0.2 MG/DL (0.2-1.0) Aspartate Amino Transf (AST/SGOT) 26 U/L (15-37) 28 U/L (15-37) Alanine Aminotransferase (ALT/SGPT) 24 U/L (12-78) 33 U/L (12-78) Alkaline Phosphatase 60 U/L (46-116) 63 U/L (46-116) Lactate Dehydrogenase 305 U/L (81-234) Total Protein 6.7 G/DL (6.4-8.2) 6.7 G/DL (6.4-8.2) Albumin 1.6 G/DL (3.4-5.0) 1.6 G/DL (3.4-5.0) Globulin 5.1 g/dL 5.1 g/dL Albumin/Globulin Ratio 0.3 (1.0-2.7) 0.3 (1.0-2.7) Triglycerides Level 126 MG/DL (30-150) Cholesterol Level 66 MG/DL (< 200) LDL Cholesterol 23 mg/dL (<100) HDL Cholesterol 23 MG/DL (40-60) Cholesterol/HDL Ratio 2.9 (3.3-4.4) Carcinoembryonic Antigen 6.4 ng/mL (0.0-4.7) Folate 7.1 NG/ML (8.6-58.9) Thyroid Stimulating Hormone (TSH) 2.492 uiU/mL (0.358-3.740) Erythrocyte Sedimentation Rate 107 MM/HR (0-20) Fibrinogen 653 mg/dL (200-400) Phosphorus Level 2.6 MG/DL (2.5-4.9) Magnesium Level 2.3 MG/DL (1.8-2.4) Current Medications Medications (Trade) Dose Ordered Sig/Bhupinder Route PRN Reason Start Time Stop Time Status Last Admin Dose Admin Acetaminophen (Tylenol) 650 mg Q4H PRN GT fever 05/27/18 13:15 06/26/18 13:14 05/30/18 00:21 Al Hydroxide/Mg Hydroxide (Mylanta II) 30 ml Q6H PRN GT dyspepsia 05/27/18 13:15 06/26/18 13:14 Albuterol/ Ipratropium (Albuterol/ Ipratropium) 3 ml Q4H PRN HHN Shortness of Breath 05/27/18 13:15 06/01/18 13:14 Barium Sulfate (Readi-Cat 2) 450 ml NOW PRN ORAL Radiology Procedure 05/30/18 00:15 06/01/18 00:07 Chlorhexidine Gluconate (Jasmin-Hex 2%) 1 applic DAILY@2000 TOPIC 05/28/18 20:00 06/27/18 19:59 05/29/18 20:04 Clonidine HCl (Catapres Tab) 0.1 mg EVERY 12 HOURS GT 05/27/18 21:00 06/26/18 20:59 05/30/18 09:09 Clonidine HCl (Catapres Tab) 0.1 mg Q4H PRN GT sbp more than 160 05/27/18 13:15 06/26/18 13:14 05/30/18 12:43 Dextrose 1,000 ml @ 75 mls/hr [id number] IV 05/29/18 20:00 06/28/18 19:59 05/30/18 09:30 Dextrose (Dextrose 50%) 25 ml Q30M PRN IV Hypoglycemia 05/30/18 08:15 06/29/18 08:14 Dextrose (Dextrose 50%) 50 ml Q30M PRN IV Hypoglycemia 05/30/18 08:15 06/29/18 08:14 Folic Acid (Folate) 1 mg DAILY ORAL 05/30/18 09:00 06/29/18 08:59 05/30/18 09:08 Heparin Sodium (Porcine) (Heparin 5000 units/ml) 5,000 units EVERY 12 HOURS SUBQ 05/27/18 21:00 06/26/18 20:59 05/30/18 09:10 Insulin Aspart (NovoLOG) Q4HR SUBQ 05/27/18 18:00 06/26/18 17:59 05/30/18 12:40 Insulin Aspart (NovoLOG) 6 units EVERY 4 HOURS SUBQ 05/30/18 09:00 06/29/18 08:59 05/30/18 12:41 Iopamidol (Isovue-300 100ml) 100 ml NOW PRN INJ Radiology Procedure 05/30/18 00:15 Ketorolac Tromethamine (Toradol 30mg) 30 mg Q6H PRN IV moderate pain 4-05/27/18 13:15 06/01/18 13:14 Levetiracetam (Keppra) 1,500 mg DAILY GT 05/28/18 09:00 06/27/18 08:59 05/30/18 09:09 Morphine Sulfate (Morphine Sulfate) 2 mg Q4H PRN IVP severe pain 7-10 05/27/18 13:15 06/03/18 13:14 Nitroglycerin (Ntg) 0.4 mg Q5M X 3 DOSES PRN SL Prn Chest Pain 05/27/18 13:15 06/26/18 13:14 Ondansetron HCl (Zofran) 4 mg Q6H PRN IVP Nausea & Vomiting 05/27/18 13:15 06/26/18 13:14 Piperacillin Sod/ Tazobactam Sod 3.375 gm/Sodium Chloride 110 ml @ 27.5 mls/hr Q8H IVPB 05/28/18 02:00 06/04/18 01:59 05/30/18 11:00 Polyethylene Glycol (Miralax) 17 gm HSPRN PRN GT Constipation 05/27/18 13:15 06/26/18 13:14 Temazepam (Restoril) 15 mg HSPRN PRN GT Insomnia 05/27/18 13:15 06/03/18 13:14 Vancomycin HCl (Vanco rx to dose) 1 ea DAILY PRN MISC Per rx protocol 05/27/18 21:30 06/26/18 21:29 Vancomycin HCl/ Dextrose 275 ml @ 183.333 mls/hr Q24H IVPB 05/28/18 20:00 06/02/18 19:59 05/29/18 20:04 Raoul Leigh MD May 30, 2018 14:58
[2018-05-30] MEDS ORDERED: Tubing IV Blood Pump IV ONE (17:11)
[2018-05-30] MEDS ORDERED: Tubing IV Secondary IV ONE (17:11)
[2018-05-30] MEDS ORDERED: NS 275ml ONE (17:11)
--- NOTE | 2018-05-30 18:55 | NUR ---
RESPIRATORY NOTE: PT RECEIVED STABLE ON CMV WITH CURRENT SETTINGS: AC 10, 500, 40%, +5. ALARMS ON AND AUDIBLE. EXTERNAL ALARM ATTACHED. VENT CIRCUIT SECURE AND OUT OF THE WAY. NO S/S OF RESPIRATORY DISTRESS NOTED AT THIS TIME. WILL CONTINUE TO MONITOR.
--- NOTE | 2018-05-30 19:31 | NUR ---
HAND-OFF: Report given to Jerri Foley RN.
--- NOTE | 2018-05-30 19:32 | NUR ---
NURSE NOTES: Pt report received from Lita VINCENT. Pt is laying down comfortably in bed, with a neuro assessment of obtunded. All safety precautions are in affect, such as safety breaks engaged, bed in lowest position, bed alarm active, call light is within easy reach. pt is trach to vent with Portex 7, AC 10, TV 500, Fio2 40% Peep of 5. Pt presents with a L upper arm PICC line with no abnormalities noted, running D5W at a rate of 75cc/hr. PT has G tube is running Glucerna 1.2 at 65cc/hr. PT has a condom cath that is intact and draining to gravity. Pt appears clean and dry. Will continue plan of care.
[2018-05-30] MEDS: Dyna-Hex 2% Top Sol 2oz TOPIC SCH (20:42)
[2018-05-30] MEDS: Vancomycin 1.25gm Premix IVPB SCH (21:25)
--- NOTE | 2018-05-30 22:25 | NUR ---
NURSE NOTES: Spoke with MD Jolley in person about Pt HR 48 to low 50's. Per MD order to DC Catapres PRN and Scheduled. Additionally, Ordered Lisinopril 20MG Daily and to hold Lisinopril for SBP <95. Orders Carried out.
[2018-05-31] VITALS: BP 168/75
--- NOTE | 2018-05-31 | NUR ---
NURSE NOTES: REASSESSED PTS BLOOD PRESSURE NOW 171/76 HEART RATE 53- PTS B/P TRENDING UP -PT. APPEARS TO BE STABLE- LEFT MSG FOR DR. SOUTH- WAITING FOR CALL BACK FROM DOCTOR.
--- NOTE | 2018-05-31 00:40 | NUR ---
NURSE NOTES: Per DR. Weaver, to start lisinopril ordered now and continue daily- notified Angella at [facility] will forward message to pharmacy to start order now.
[2018-05-31] MEDS: NovoLOG Insulin Flexpen SUBQ SCH ×12 (00:44→20:09)
[2018-05-31] MEDS ORDERED: Lisinopril 20mg tab ORAL SCH (01:00)
[2018-05-31] MEDS ORDERED: Lisinopril 20mg tab ORAL ONE (01:15)
[2018-05-31] MEDS: Piperacillin/Tazobactam 3.375 GM in NS 110 ML IVPB SCH ×3 (02:16→17:08)
[2018-05-31 04:00] VITALS: BP 145/69
--- NOTE | 2018-05-31 04:15 | Progress Note ---
DATE: 05/30/2018 SUBJECTIVE: The patient is awake, alert, afebrile, and hemodynamically stable. PHYSICAL EXAMINATION: VITAL SIGNS: Blood pressure is 165/84 with pulse 58, respirations are 25. HEENT: Eyes were normal. ENT, mucous membranes were moist and intact. NECK: Supple with no JVD without lymph nodes. Tracheostomy site is clean. LUNGS: Clear without rhonchi, rales, or wheezing. Secretions are small, thin, and herrera. HEART: Normal sounds with regular beats. There is no S3, S4, or pericardial rub. ABDOMEN: Soft and nontender with normal bowel sounds. Gastrostomy site is clean. EXTREMITIES: Warm without cyanosis, clubbing, or edema. LABORATORY AND DIAGNOSTIC DATA: Hemoglobin is 8.6, hematocrit 27.3 with MCV of 76, WBC of 13.1, and platelets are 271. WBC was 18.5 on 05/28/2018 and 19.8 on 05/27/2018. BUN and creatinine is 20 and 0.9 respectively. His sodium is 148, potassium 3.8, chloride 117, and CO2 is 26. Stool for occult blood is pending. IMPRESSION AND PLAN: and normal contrast. Repeat laboratory tests will be done in the a.m. Janette Weaver M.D. DR: SHIVA JOB#: [id number] CC:
--- NOTE | 2018-05-31 04:58 | NUR ---
RESPIRATORY NOTE: PT REMAINED STABLE ON CMV WITH CURRENT SETTINGS. SX PRN. VENT CIRCUIT SECURE AND OUT OF THE WAY. NO S/S OF RESPIRATORY DISTRESS NOTED AT THIS TIME.
[2018-05-31 06:00] LABS: HEMATOCRIT 24.2 % (42.0-52.0); HEMOGLOBIN 7.6 G/DL (14.2-18.0); MEAN CORPUSCULAR VOLUME 77 FL (80-99); PLATELET COUNT 271 K/UL (150-450); RED BLOOD COUNT 3.16 M/UL (4.70-6.10); RED CELL DISTRIBUTION WIDTH 18.8 % (11.6-14.8); WHITE BLOOD COUNT 11.3 K/UL (4.8-10.8)
[2018-05-31 06:17] LABS: ALANINE AMINOTRANSFERASE 25 U/L (12-78); ALBUMIN 1.4 G/DL (3.4-5.0); ALBUMIN/GLOBULIN RATIO 0.3 (1.0-2.7); ALKALINE PHOSPHATASE 57 U/L (46-116); ANION GAP 6 mmol/L (5-15); ASPARTATE AMINO TRANSFERASE 17 U/L (15-37); BILIRUBIN,TOTAL 0.1 MG/DL (0.2-1.0); BLOOD UREA NITROGEN 15 mg/dL (7-18); CALCIUM 8.3 MG/DL (8.5-10.1); CARBON DIOXIDE 28 MMOL/L (21-32); CHLORIDE 110 MMOL/L (98-107); CREATININE 0.9 MG/DL (0.55-1.30); PHOSPHORUS 3.9 MG/DL (2.5-4.9); POTASSIUM 3.1 MMOL/L (3.5-5.1); SODIUM 144 MMOL/L (136-145)
--- NOTE | 2018-05-31 06:33 | NUR ---
NURSE NOTES: Left a message for MD Weaver to report Hgb 7.6, Hct 24.2, and Potassium 3.1. Awaiting call back from .
--- NOTE | 2018-05-31 06:55 | NUR ---
NURSE NOTES: MD Weaver Called and gave telephone order of 2 Units PRBC and KCL 40MEQ via G tube- orders carried out and reported to hand off RN.
--- NOTE | 2018-05-31 07:25 | General Progress Note ---
Assessment/Plan Problem List: (1) Diabetes mellitus ICD Codes: E11.9 - Type 2 diabetes mellitus without complications SNOMED: 05432009 (2) Chronic respiratory failure ICD Codes: J96.10 - Chronic respiratory failure, unspecified whether with hypoxia or hypercapnia SNOMED: 53280524 (3) Contracture of joint of multiple sites ICD Codes: M24.50 - Contracture, unspecified joint SNOMED: 24108099, 011820658 (4) Pneumonia ICD Codes: J18.9 - Pneumonia, unspecified organism SNOMED: 844691496 (5) Severe sepsis ICD Codes: A41.9 - Sepsis, unspecified organism; R65.20 - Severe sepsis without septic shock SNOMED: 51642731 (6) Vegetative state ICD Codes: R40.3 - Persistent vegetative state SNOMED: 74936358 (7) Cerebrovascular accident (CVA) ICD Codes: I63.9 - Cerebral infarction, unspecified SNOMED: 202538388 (8) Sepsis ICD Codes: A41.9 - Sepsis, unspecified organism SNOMED: 89739628 Assessment/Plan increase Novolog 6 to 10 units every 4 hours continue NISS every 4 hours Subjective ROS Limited/Unobtainable: Yes Allergies: Coded Allergies: No Known Allergies (Unverified , 05/27/18) Subjective events noted glucose values elevated but improving Item Value Date Time Bedside Blood Glucose 287 mg/dl H 05/31/18 0532 Bedside Blood Glucose 316 mg/dl H 05/31/18 0100 Bedside Blood Glucose 295 mg/dl H 05/30/18 2046 Bedside Blood Glucose 328 mg/dl H 05/30/18 1714 Bedside Blood Glucose 345 mg/dl H 05/30/18 1241 Bedside Blood Glucose 379 mg/dl H 05/30/18 0903 Objective Last 24 Hour Vital Signs Date Time Temp Pulse Resp B/P (MAP) Pulse Ox O2 Delivery O2 Flow Rate FiO2 05/31/18 07:16 51 23 40 05/31/18 04:58 52 19 40 05/31/18 04:00 50 05/31/18 04:00 40 05/31/18 04:00 98.4 56 22 145/69 (94) 98 05/31/18 04:00 Mechanical Ventilator 05/31/18 02:55 52 23 40 05/31/18 01:14 171/65 05/31/18 00:56 56 22 40 05/31/18 00:00 99.1 52 18 168/75 (106) 97 05/31/18 00:00 40 05/31/18 00:00 49 05/31/18 00:00 Mechanical Ventilator 05/30/18 23:05 51 23 40 05/30/18 21:30 58 152/72 (98) 05/30/18 21:00 54 25 40 05/30/18 20:43 165/84 05/30/18 20:00 51 05/30/18 20:00 40 05/30/18 20:00 Mechanical Ventilator 05/30/18 20:00 99.0 58 18 165/84 (111) 97 05/30/18 18:55 62 25 40 05/30/18 16:45 56 23 40 05/30/18 16:00 Mechanical Ventilator 05/30/18 16:00 40 05/30/18 16:00 99.1 60 16 143/62 (89) 97 05/30/18 15:29 53 05/30/18 15:02 51 23 40 05/30/18 13:08 61 20 40 05/30/18 12:43 186/80 05/30/18 12:04 74 05/30/18 12:00 40 05/30/18 12:00 Mechanical Ventilator 05/30/18 12:00 98.4 61 22 186/80 (115) 97 05/30/18 11:18 65 24 40 05/30/18 09:10 63 16 40 05/30/18 09:09 149/78 05/30/18 08:00 40 05/30/18 08:00 98.1 55 24 149/78 (101) 100 05/30/18 08:00 Mechanical Ventilator 05/30/18 07:39 56 Intake and Output 05/30/18 05/31/18 19:00 07:00 Intake Total 1075.0 ml 2010.0 ml Output Total 200 ml 550 ml Balance 875.0 ml 1460.0 ml Free Water 100 ml IV Total 890.0 ml 1130.0 ml Tube Feeding 185 ml 780 ml Output Urine Total 200 ml 550 ml # Voids 1 # Bowel Movements 4 4 Laboratory Tests 05/30/18 17:25: Stool Occult Blood [Pending] 05/30/18 19:38: Vancomycin Level Trough 8.6 05/31/18 04:55: White Blood Count 11.3H, Red Blood Count 3.16L, Hemoglobin 7.6L, Hematocrit 24.2L, Mean Corpuscular Volume 77L, Mean Corpuscular Hemoglobin 23.9L, Mean Corpuscular Hemoglobin Concent 31.3L, Red Cell Distribution Width 18.8H, Platelet Count 271, Mean Platelet Volume 8.1, Neutrophils (%) (Auto) , Lymphocytes (%) (Auto) , Monocytes (%) (Auto) , Eosinophils (%) (Auto) , Basophils (%) (Auto) , Sodium Level 144, Potassium Level 3.1L, Chloride Level 110H, Carbon Dioxide Level 28, Anion Gap 6, Blood Urea Nitrogen 15, Creatinine 0.9, Estimat Glomerular Filtration Rate > 60, Glucose Level 286H, Calcium Level 8.3L, Phosphorus Level 3.9, Magnesium Level 2.2, Total Bilirubin 0.1L, Aspartate Amino Transf (AST/SGOT) 17, Alanine Aminotransferase (ALT/SGPT) 25, Alkaline Phosphatase 57, Total Protein 5.9L, Albumin 1.4L, Globulin 4.5, Albumin /Globulin Ratio 0.3L Height (Feet): 5 Height (Inches): 6.00 Weight (Pounds): 175 General Appearance: other - on vent Neck: other - trach Respiratory/Chest: decreased breath sounds Abdomen: normal bowel sounds Genitourinary/Rectal: other - PEG Edema: 1+ Arm (L), 1+ Arm (R), 1+ Leg (L), 1+ Leg (R), 1+ Pedal (L), 1+ Pedal ( R), 1+ Generalized Objective Current Medications Medications (Trade) Dose Ordered Sig/Bhupinder Route PRN Reason Start Time Stop Time Status Last Admin Dose Admin Acetaminophen (Tylenol) 650 mg Q4H PRN GT fever 05/27/18 13:15 06/26/18 13:14 05/30/18 00:21 Al Hydroxide/Mg Hydroxide (Mylanta II) 30 ml Q6H PRN GT dyspepsia 05/27/18 13:15 06/26/18 13:14 Albuterol/ Ipratropium (Albuterol/ Ipratropium) 3 ml Q4H PRN HHN Shortness of Breath 05/27/18 13:15 06/01/18 13:14 Barium Sulfate (Readi-Cat 2) 450 ml NOW PRN ORAL Radiology Procedure 05/30/18 00:15 06/01/18 00:07 Chlorhexidine Gluconate (Jasmin-Hex 2%) 1 applic DAILY@2000 TOPIC 05/28/18 20:00 06/27/18 19:59 05/30/18 20:42 Dextrose 1,000 ml @ 75 mls/hr [id number] IV 05/29/18 20:00 06/28/18 19:59 05/30/18 21:29 Dextrose (Dextrose 50%) 25 ml Q30M PRN IV Hypoglycemia 05/30/18 08:15 06/29/18 08:14 Dextrose (Dextrose 50%) 50 ml Q30M PRN IV Hypoglycemia 05/30/18 08:15 06/29/18 08:14 Folic Acid (Folate) 1 mg DAILY ORAL 05/30/18 09:00 06/29/18 08:59 05/30/18 09:08 Heparin Sodium (Porcine) (Heparin 5000 units/ml) 5,000 units EVERY 12 HOURS SUBQ 05/27/18 21:00 06/26/18 20:59 05/30/18 20:42 Insulin Aspart (NovoLOG) Q4HR SUBQ 05/27/18 18:00 06/26/18 17:59 05/31/18 05:31 Insulin Aspart (NovoLOG) 6 units EVERY 4 HOURS SUBQ 05/30/18 09:00 06/29/18 08:59 05/31/18 05:32 Iopamidol (Isovue-300 100ml) 100 ml NOW PRN INJ Radiology Procedure 05/30/18 00:15 Ketorolac Tromethamine (Toradol 30mg) 30 mg Q6H PRN IV moderate pain 4-6 05/27/18 13:15 06/01/18 13:14 Levetiracetam (Keppra) 1,500 mg DAILY GT 05/28/18 09:00 06/27/18 08:59 05/30/18 09:09 Lisinopril (Prinivil) 20 mg QHS ORAL 05/31/18 01:00 06/30/18 00:59 Morphine Sulfate (Morphine Sulfate) 2 mg Q4H PRN IVP severe pain 7-10 05/27/18 13:15 06/03/18 13:14 Nitroglycerin (Ntg) 0.4 mg Q5M X 3 DOSES PRN SL Prn Chest Pain 05/27/18 13:15 06/26/18 13:14 Ondansetron HCl (Zofran) 4 mg Q6H PRN IVP Nausea & Vomiting 05/27/18 13:15 06/26/18 13:14 Piperacillin Sod/ Tazobactam Sod 3.375 gm/Sodium Chloride 110 ml @ 27.5 mls/hr Q8H IVPB 05/28/18 02:00 06/04/18 01:59 05/31/18 02:16 Polyethylene Glycol (Miralax) 17 gm HSPRN PRN GT Constipation 05/27/18 13:15 06/26/18 13:14 Potassium Chloride (K-Dur) 40 meq ONCE GT 05/31/18 08:00 05/31/18 09:00 Temazepam (Restoril) 15 mg HSPRN PRN GT Insomnia 05/27/18 13:15 06/03/18 13:14 Vancomycin HCl (Vanco rx to dose) 1 ea DAILY PRN MISC Per rx protocol 05/27/18 21:30 06/26/18 21:29 Vancomycin HCl 750 mg/Sodium Chloride 275 ml @ 183.333 mls/hr Q12H IVPB 05/31/18 08:00 06/05/18 07:59 Ayan Gillespie MD May 31, 2018 07:25
--- NOTE | 2018-05-31 07:32 | NUR ---
HAND-OFF: Report given to Lita VINCENT and Michael VINCENT. Pt remains stable and no signs of distress noted. They are aware to follow up with Blood Transfusion. Skin checked during bed rounds.
--- NOTE | 2018-05-31 07:35 | NUR ---
NURSE NOTES: Patient received from Owen Lo RN. Patient in bed with no signs of distress. Bed at its lowest position and call light in reach. Will continue to monitor.
[2018-05-31 08:00] VITALS: BP 150/80
[2018-05-31] MEDS: Vancomycin 750mg/NS 275ml IVPB SCH ×4 (08:20→20:06)
[2018-05-31] MEDS: levETIRAcetam 500mg/5ml Liquid GT SCH (08:20)
[2018-05-31] MEDS: Heparin 5000 units/ml inj SUBQ SCH ×2 (08:25→20:07)
[2018-05-31 08:56] LABS: BASOPHILS % (AUTO) 0.6 % (0.0-2.0); EOSINOPHILS % (AUTO) 3.7 % (0.0-3.0); HEMATOCRIT 26.1 % (42.0-52.0); HEMOGLOBIN 8.3 G/DL (14.2-18.0); LYMPHOCYTES % (AUTO) 16.6 % (20.0-45.0); MEAN CORPUSCULAR VOLUME 77 FL (80-99); NEUTROPHILS % (AUTO) 73.1 % (45.0-75.0); PLATELET COUNT 249 K/UL (150-450); RED BLOOD COUNT 3.41 M/UL (4.70-6.10); RED CELL DISTRIBUTION WIDTH 19.1 % (11.6-14.8); WHITE BLOOD COUNT 11.1 K/UL (4.8-10.8)
--- NOTE | 2018-05-31 11:56 | Pulmonolgy Critical Care Note ---
Critical Care - Asmt/Plan Problems: (1) Acute on chronic respiratory failure (2) Sepsis (3) Nosocomial pneumonia (4) Severe sepsis (5) Pneumonia (6) Vegetative state (7) Contracture of joint of multiple sites (8) Chronic respiratory failure (9) Diabetes mellitus (10) Cerebrovascular accident (CVA) Respiratory: monitor respiratory rate, adjust FIO2, CXR Cardiac: continue to monitor HR/BP Renal: F/U I&O, decrease IV fluid, check electrolytes Infectious Disease: check cultures Gastrointestinal: continue feedings/current rate, other - 55cc /hour Hematologic: monitor H/H Affect: PRN ativan Prophylaxis: Protonix, Heparin Time Spent (Minutes): 40 Notes Reviewed: mapping analyst, renal Discussed with: nurses, consultants, case management managermanager garden - Objective Last 24 Hour Vital Signs Date Time Temp Pulse Resp B/P (MAP) Pulse Ox O2 Delivery O2 Flow Rate FiO2 05/31/18 10:59 54 20 40 05/31/18 09:00 53 18 40 05/31/18 08:00 50 05/31/18 08:00 40 05/31/18 08:00 Mechanical Ventilator 05/31/18 08:00 98.4 51 20 150/80 (103) 99 05/31/18 07:16 51 23 40 05/31/18 04:58 52 19 40 05/31/18 04:00 50 05/31/18 04:00 40 05/31/18 04:00 98.4 56 22 145/69 (94) 98 05/31/18 04:00 Mechanical Ventilator 05/31/18 02:55 52 23 40 05/31/18 01:14 171/65 05/31/18 00:56 56 22 40 05/31/18 00:00 99.1 52 18 168/75 (106) 97 05/31/18 00:00 40 05/31/18 00:00 49 05/31/18 00:00 Mechanical Ventilator 05/30/18 23:05 51 23 40 05/30/18 21:30 58 152/72 (98) 05/30/18 21:00 54 25 40 05/30/18 20:43 165/84 05/30/18 20:00 51 05/30/18 20:00 40 05/30/18 20:00 Mechanical Ventilator 05/30/18 20:00 99.0 58 18 165/84 (111) 97 05/30/18 18:55 62 25 40 05/30/18 16:45 56 23 40 05/30/18 16:00 Mechanical Ventilator 05/30/18 16:00 40 05/30/18 16:00 99.1 60 16 143/62 (89) 97 05/30/18 15:29 53 05/30/18 15:02 51 23 40 05/30/18 13:08 61 20 40 05/30/18 12:43 186/80 05/30/18 12:04 74 05/30/18 12:00 40 05/30/18 12:00 Mechanical Ventilator 05/30/18 12:00 98.4 61 22 186/80 (115) 97 Status: awake Condition: critical HEENT: atraumatic Neck: full ROM Heart: HR/BP stable Abdomen: soft, active bowel sounds Extremities: no C/C/E Decubiti: stage Micro: Microbiology Date/Time Source Procedure Growth Status 05/29/18 04:50 Blood Blood Culture - Preliminary Staphylococcus Species Resulted 05/29/18 04:45 Blood Blood Culture - Preliminary NO GROWTH AFTER 24 HOURS Resulted Accucheck: 327 Critical Care - Subjective ROS Limited/Unobtainable: Yes Condition: critical EKG Rhythm: Sinus Rhythm FI02: 40 Vent Support Breath Rate: 10 Vent Support Mode: AC Vent Tidal Volume: 500 Sputum Amount: Moderate PEEP: 5.0 PIP: 30 Tube Feeding Amount: 65 I&O: Intake and Output 05/30/18 05/31/18 19:00 07:00 Intake Total 1075.0 ml 2010.0 ml Output Total 200 ml 550 ml Balance 875.0 ml 1460.0 ml Free Water 100 ml IV Total 890.0 ml 1130.0 ml Tube Feeding 185 ml 780 ml Output Urine Total 200 ml 550 ml # Voids 1 # Bowel Movements 4 4 CXR: no change Labs: Laboratory Tests Test 05/30/18 17:25 05/30/18 19:38 05/31/18 04:55 05/31/18 08:35 Stool Occult Blood Pending Vancomycin Level Trough 8.6 ug/mL (5.0-12.0) White Blood Count 11.3 K/UL (4.8-10.8) H 11.1 K/UL (4.8-10.8) H Red Blood Count 3.16 M/UL (4.70-6.10) L 3.41 M/UL (4.70-6.10) L Hemoglobin 7.6 G/DL (14.2-18.0) L 8.3 G/DL (14.2-18.0) L Hematocrit 24.2 % (42.0-52.0) L 26.1 % (42.0-52.0) L Mean Corpuscular Volume 77 FL (80-99) L 77 FL (80-99) L Mean Corpuscular Hemoglobin 23.9 PG (27.0-31.0) L 24.4 PG (27.0-31.0) L Mean Corpuscular Hemoglobin Concent 31.3 G/DL (32.0-36.0) L 31.9 G/DL (32.0-36.0) L Red Cell Distribution Width 18.8 % (11.6-14.8) H 19.1 % (11.6-14.8) H Platelet Count 271 K/UL (150-450) 249 K/UL (150-450) Mean Platelet Volume 8.1 FL (6.5-10.1) 7.5 FL (6.5-10.1) Neutrophils (%) (Auto) % (45.0-75.0) 73.1 % (45.0-75.0) Lymphocytes (%) (Auto) % (20.0-45.0) 16.6 % (20.0-45.0) L Monocytes (%) (Auto) % (1.0-10.0) 6.0 % (1.0-10.0) Eosinophils (%) (Auto) % (0.0-3.0) 3.7 % (0.0-3.0) H Basophils (%) (Auto) % (0.0-2.0) 0.6 % (0.0-2.0) Sodium Level 144 MMOL/L (136-145) Potassium Level 3.1 MMOL/L (3.5-5.1) L Chloride Level 110 MMOL/L (98-107) H Carbon Dioxide Level 28 MMOL/L (21-32) Anion Gap 6 mmol/L (5-15) Blood Urea Nitrogen 15 mg/dL (7-18) Creatinine 0.9 MG/DL (0.55-1.30) Estimat Glomerular Filtration Rate > 60 mL/min (>60) Glucose Level 286 MG/DL (74-106) H Calcium Level 8.3 MG/DL (8.5-10.1) L Phosphorus Level 3.9 MG/DL (2.5-4.9) Magnesium Level 2.2 MG/DL (1.8-2.4) Total Bilirubin 0.1 MG/DL (0.2-1.0) L Aspartate Amino Transf (AST/SGOT) 17 U/L (15-37) Alanine Aminotransferase (ALT/SGPT) 25 U/L (12-78) Alkaline Phosphatase 57 U/L (46-116) Total Protein 5.9 G/DL (6.4-8.2) L Albumin 1.4 G/DL (3.4-5.0) L Globulin 4.5 g/dL Albumin/Globulin Ratio 0.3 (1.0-2.7) L Yomi Odom MD May 31, 2018 11:56
[2018-05-31 12:00] VITALS: BP 156/81
[2018-05-31 16:00] VITALS: BP 171/87
--- NOTE | 2018-05-31 19:25 | NUR ---
NURSE NOTES: Received bedside report from LitaRN/MichaelRN.Patient stable,no s/s of pain,no respiratory distress noted,pt obtunded,open eyes,SB-SR on laminator hand,trach-vent Portex 7 AC10 TV 500 FiO2 40% PEEP5 tolerated well,GT running with Glucerna 1.2 @ 65ml/hr,BS active in all quadrants,PICC ANGELES asymptomatic,intact inserted 05/29/18 Biopatch placed,next dressing change 06/05/18,double lumen TKO,bed secured,call light within a reach,will continue to monitor and follow POC.
--- NOTE | 2018-05-31 19:30 | NUR ---
HAND-OFF: Report given to Melsisa Cordon RN.
--- NOTE | 2018-05-31 19:32 | General Progress Note ---
Assessment/Plan Assessment/Plan Assessment and Recs: # Anemia of chronic disease due to underlying chronic medical issues, multifactorial --> Anemia workup has been ordered, rule out gi bleed, it has been reviewed --> No evidence of hemolysis is noted, peripheral smear has been reviewed. --> Hgb goal >7. Transfuse prn. --> Epogen or iron at this time is not particularly indicated --> Medications have been reviewed --> evaluate with Gi team prn --> hgb7.6-->8.3 # Leukocytosis/Elevated white blood cell count, unspecified likely related to underlying stress reaction, smoking v more likely infection (PNA) --> have reviewed peripheral smear and bandemia/neutrophilia noted --> continue antibiotics if they have been started by ID team --> monitor for resolution # Acute on chronic respiratory failure --> on abx as per id --> pulm//cc on the case for manageemnt as well # Nosocomial pneumonia --> s/p abx treatment # Severe sepsis w/ pna --> on abx # Cerebrovascular accident (CVA) # Vegetative state # Contracture of joint of multiple sites The timing of this note does not necessarily reflect the time of the patient was seen. Greatly appreciate consultation! Subjective Constitutional: Denies: no symptoms, chills, diaphoresis, fever, malaise, weakness, other HEENT: Denies: no symptoms, eye pain, blurred vision, tearing, double vision, ear pain, ear discharge, nose pain, nose congestion, throat pain, throat swelling, mouth pain, mouth swelling, other Cardiovascular: Denies: no symptoms, chest pain, edema, irregular heart rate, lightheadedness, palpitations, syncope, other Respiratory: Denies: no symptoms, cough, orthopnea, shortness of breath, SOB with excertion, SOB at rest, sputum, stridor, wheezing, other Genitourinary: Denies: no symptoms, burning, discharge, frequency, flank pain, hematuria, incontinence, pain, urgency, other Neurologic/Psychiatric: Denies: no symptoms, anxiety, depressed, emotional problems, headache, numbness, paresthesia, pre-existing deficit, seizure, tingling, tremors, weakness, other Endocrine: Denies: no symptoms, excessive sweating, flushing, intolerance to cold, intolerance to heat, increased hunger, increased thirst, increased urine, unexplained weight gain, unexplained weight loss, other Hematologic/Lymphatic: Denies: no symptoms, anemia, easy bleeding, easy bruising, other Allergies: Coded Allergies: No Known Allergies (Unverified , 05/27/18) Subjective 05/29: midline was leaking better, now in better position, no complaints 05/31: no major duress, hgb 8.3, no bleeding reported Objective Last 24 Hour Vital Signs Date Time Temp Pulse Resp B/P (MAP) Pulse Ox O2 Delivery O2 Flow Rate FiO2 05/31/18 16:59 50 22 40 05/31/18 16:00 40 05/31/18 16:00 Mechanical Ventilator 05/31/18 16:00 99.1 53 20 171/87 (115) 99 05/31/18 15:31 48 05/31/18 14:34 54 23 40 05/31/18 13:10 50 20 40 05/31/18 12:00 52 05/31/18 12:00 98.4 55 18 156/81 (106) 99 05/31/18 12:00 Mechanical Ventilator 05/31/18 12:00 40 05/31/18 10:59 54 20 40 05/31/18 09:00 53 18 40 05/31/18 08:00 50 05/31/18 08:00 40 05/31/18 08:00 Mechanical Ventilator 05/31/18 08:00 98.4 51 20 150/80 (103) 99 05/31/18 07:16 51 23 40 05/31/18 04:58 52 19 40 05/31/18 04:00 50 05/31/18 04:00 40 05/31/18 04:00 98.4 56 22 145/69 (94) 98 05/31/18 04:00 Mechanical Ventilator 05/31/18 02:55 52 23 40 05/31/18 01:14 171/65 05/31/18 00:56 56 22 40 05/31/18 00:00 99.1 52 18 168/75 (106) 97 05/31/18 00:00 40 05/31/18 00:00 49 05/31/18 00:00 Mechanical Ventilator 05/30/18 23:05 51 23 40 05/30/18 21:30 58 152/72 (98) 05/30/18 21:00 54 25 40 05/30/18 20:43 165/84 05/30/18 20:00 51 05/30/18 20:00 40 05/30/18 20:00 Mechanical Ventilator 05/30/18 20:00 99.0 58 18 165/84 (111) 97 Intake and Output 05/30/18 05/31/18 18:59 06:59 Intake Total 1065.0 ml 2010.0 ml Output Total 200 ml 550 ml Balance 865.0 ml 1460.0 ml Free Water 100 ml IV Total 890.0 ml 1130.0 ml Tube Feeding 175 ml 780 ml Output Urine Total 200 ml 550 ml # Voids 1 # Bowel Movements 4 4 Laboratory Tests 05/30/18 19:38: Vancomycin Level Trough 8.6 05/31/18 04:55: White Blood Count 11.3H, Red Blood Count 3.16L, Hemoglobin 7.6L, Hematocrit 24.2L, Mean Corpuscular Volume 77L, Mean Corpuscular Hemoglobin 23.9L, Mean Corpuscular Hemoglobin Concent 31.3L, Red Cell Distribution Width 18.8H, Platelet Count 271, Mean Platelet Volume 8.1, Neutrophils (%) (Auto) , Lymphocytes (%) (Auto) , Monocytes (%) (Auto) , Eosinophils (%) (Auto) , Basophils (%) (Auto) , Sodium Level 144, Potassium Level 3.1L, Chloride Level 110H, Carbon Dioxide Level 28, Anion Gap 6, Blood Urea Nitrogen 15, Creatinine 0.9, Estimat Glomerular Filtration Rate > 60, Glucose Level 286H, Calcium Level 8.3L, Phosphorus Level 3.9, Magnesium Level 2.2, Total Bilirubin 0.1L, Aspartate Amino Transf (AST/SGOT) 17, Alanine Aminotransferase (ALT/SGPT) 25, Alkaline Phosphatase 57, Total Protein 5.9L, Albumin 1.4L, Globulin 4.5, Albumin /Globulin Ratio 0.3L 05/31/18 08:35: White Blood Count 11.1H, Red Blood Count 3.41L, Hemoglobin 8.3L, Hematocrit 26.1L, Mean Corpuscular Volume 77L, Mean Corpuscular Hemoglobin 24.4L, Mean Corpuscular Hemoglobin Concent 31.9L, Red Cell Distribution Width 19.1H, Platelet Count 249, Mean Platelet Volume 7.5, Neutrophils (%) (Auto) 73.1, Lymphocytes (%) (Auto) 16.6L, Monocytes (%) (Auto) 6.0, Eosinophils (%) (Auto) 3.7H, Basophils (%) (Auto) 0.6 Height (Feet): 5 Height (Inches): 6.00 Weight (Pounds): 175 Objective PE: Vitals: reviewed, stable General Appearance: NAD HEENT: normocephalic, atraumatic Neck: non-tender, normal alignment Respiratory/Chest: crackles b/l noted, ++ trach/vent Cardiovascular/Chest: normal peripheral pulses, normal rate Abdomen: normal bowel sounds, soft, nontender ++ peg Extremities: normal range of motion Trey Tripathi MD May 31, 2018 19:32
[2018-05-31 20:00] VITALS: BP 170/72
[2018-05-31] MEDS: Dyna-Hex 2% Top Sol 2oz TOPIC SCH (20:06)
[2018-05-31] MEDS: Lisinopril 20mg tab GT SCH (20:09)
[2018-06-01] VITALS: BP 151/76
[2018-06-01] MEDS: NovoLOG Insulin Flexpen SUBQ SCH ×12 (00:35→20:41)
[2018-06-01] MEDS: Piperacillin/Tazobactam 3.375 GM in NS 110 ML IVPB SCH ×3 (01:59→17:21)
[2018-06-01 04:00] VITALS: BP 156/82
--- NOTE | 2018-06-01 06:39 | General Progress Note ---
Assessment/Plan Problem List: (1) Diabetes mellitus ICD Codes: E11.9 - Type 2 diabetes mellitus without complications SNOMED: 43690895 (2) Chronic respiratory failure ICD Codes: J96.10 - Chronic respiratory failure, unspecified whether with hypoxia or hypercapnia SNOMED: 01909848 (3) Contracture of joint of multiple sites ICD Codes: M24.50 - Contracture, unspecified joint SNOMED: 10525941, 119811539 (4) Pneumonia ICD Codes: J18.9 - Pneumonia, unspecified organism SNOMED: 288905981 (5) Severe sepsis ICD Codes: A41.9 - Sepsis, unspecified organism; R65.20 - Severe sepsis without septic shock SNOMED: 47109507 (6) Vegetative state ICD Codes: R40.3 - Persistent vegetative state SNOMED: 30630923 (7) Cerebrovascular accident (CVA) ICD Codes: I63.9 - Cerebral infarction, unspecified SNOMED: 653735634 (8) Sepsis ICD Codes: A41.9 - Sepsis, unspecified organism SNOMED: 51920319 Assessment/Plan continue Novolog 10 units every 4 hours continue NISS every 4 hours Subjective ROS Limited/Unobtainable: Yes Allergies: Coded Allergies: No Known Allergies (Unverified , 05/27/18) Subjective events noted glucose values are controlled Item Value Date Time Bedside Blood Glucose 152 mg/dl H 06/01/18 0516 Bedside Blood Glucose 153 mg/dl H 06/01/18 0100 Bedside Blood Glucose 156 mg/dl H 05/31/18 2100 Bedside Blood Glucose 207 mg/dl H 05/31/18 1626 Bedside Blood Glucose 256 mg/dl H 05/31/18 1221 Bedside Blood Glucose 327 mg/dl H 05/31/18 0907 Bedside Blood Glucose 287 mg/dl H 05/31/18 0532 Bedside Blood Glucose 316 mg/dl H 05/31/18 0100 Objective Last 24 Hour Vital Signs Date Time Temp Pulse Resp B/P (MAP) Pulse Ox O2 Delivery O2 Flow Rate FiO2 06/01/18 04:45 52 17 40 06/01/18 04:00 40 06/01/18 04:00 Mechanical Ventilator 06/01/18 04:00 98.1 57 18 156/82 (106) 99 06/01/18 03:21 50 06/01/18 02:39 54 19 40 06/01/18 01:05 53 24 40 06/01/18 00:00 Mechanical Ventilator 06/01/18 00:00 40 06/01/18 00:00 97.9 57 21 151/76 (101) 99 05/31/18 23:26 49 05/31/18 23:22 54 21 40 05/31/18 21:15 54 18 40 05/31/18 20:09 162/78 05/31/18 20:00 Mechanical Ventilator 05/31/18 20:00 40 05/31/18 20:00 97.9 54 19 170/72 (104) 98 05/31/18 19:32 57 05/31/18 18:45 55 17 40 05/31/18 16:59 50 22 40 05/31/18 16:00 40 05/31/18 16:00 Mechanical Ventilator 05/31/18 16:00 99.1 53 20 171/87 (115) 99 05/31/18 15:31 48 05/31/18 14:34 54 23 40 05/31/18 13:10 50 20 40 05/31/18 12:00 52 05/31/18 12:00 98.4 55 18 156/81 (106) 99 05/31/18 12:00 Mechanical Ventilator 05/31/18 12:00 40 05/31/18 10:59 54 20 40 05/31/18 09:00 53 18 40 05/31/18 08:00 50 05/31/18 08:00 40 05/31/18 08:00 Mechanical Ventilator 05/31/18 08:00 98.4 51 20 150/80 (103) 99 05/31/18 07:16 51 23 40 Intake and Output 05/31/18 06/01/18 19:00 07:00 Intake Total 1425.00 ml 717.500 ml Output Total 400 ml 250 ml Balance 1025.00 ml 467.500 ml Free Water 100 ml IV Total 610.00 ml 357.500 ml Tube Feeding 715 ml 260 ml Other 100 ml Output Urine Total 400 ml 250 ml # Bowel Movements 4 2 Laboratory Tests 05/31/18 08:35: White Blood Count 11.1H, Red Blood Count 3.41L, Hemoglobin 8.3L, Hematocrit 26.1L, Mean Corpuscular Volume 77L, Mean Corpuscular Hemoglobin 24.4L, Mean Corpuscular Hemoglobin Concent 31.9L, Red Cell Distribution Width 19.1H, Platelet Count 249, Mean Platelet Volume 7.5, Neutrophils (%) (Auto) 73.1, Lymphocytes (%) (Auto) 16.6L, Monocytes (%) (Auto) 6.0, Eosinophils (%) (Auto) 3.7H, Basophils (%) (Auto) 0.6 Height (Feet): 5 Height (Inches): 6.00 Weight (Pounds): 175 General Appearance: lethargic EENT: other - trach Neck: normal alignment Cardiovascular: normal rate Respiratory/Chest: decreased breath sounds Abdomen: normal bowel sounds, other - PEG Edema: 1+ Arm (L), 1+ Arm (R), 1+ Leg (L), 1+ Leg (R), 1+ Pedal (L), 1+ Pedal ( R), 1+ Generalized Objective Current Medications Medications (Trade) Dose Ordered Sig/Bhupinder Route PRN Reason Start Time Stop Time Status Last Admin Dose Admin Acetaminophen (Tylenol) 650 mg Q4H PRN GT fever 05/27/18 13:15 06/26/18 13:14 05/30/18 00:21 Al Hydroxide/Mg Hydroxide (Mylanta II) 30 ml Q6H PRN GT dyspepsia 05/27/18 13:15 06/26/18 13:14 Albuterol/ Ipratropium (Albuterol/ Ipratropium) 3 ml Q4H PRN HHN Shortness of Breath 05/27/18 13:15 06/01/18 13:14 Chlorhexidine Gluconate (Jasmin-Hex 2%) 1 applic DAILY@1999 TOPIC 05/28/18 20:00 06/27/18 19:59 05/31/18 20:06 Dextrose (Dextrose 50%) 25 ml Q30M PRN IV Hypoglycemia 05/30/18 08:15 06/29/18 08:14 Dextrose (Dextrose 50%) 50 ml Q30M PRN IV Hypoglycemia 05/30/18 08:15 06/29/18 08:14 Folic Acid (Folate) 1 mg DAILY GT 06/01/18 09:00 06/29/18 08:59 Heparin Sodium (Porcine) (Heparin 5000 units/ml) 5,000 units EVERY 12 HOURS SUBQ 05/27/18 21:00 06/26/18 20:59 05/31/18 20:07 Insulin Aspart (NovoLOG) Q4HR SUBQ 05/27/18 18:00 06/26/18 17:59 06/01/18 05:16 Insulin Aspart (NovoLOG) 10 units EVERY 4 HOURS SUBQ 05/31/18 09:00 06/29/18 08:59 06/01/18 05:16 Iopamidol (Isovue-300 100ml) 100 ml NOW PRN INJ Radiology Procedure 05/30/18 00:15 Ketorolac Tromethamine (Toradol 30mg) 30 mg Q6H PRN IV moderate pain 4-6 05/27/18 13:15 06/01/18 13:14 Levetiracetam (Keppra) 1,500 mg DAILY GT 05/28/18 09:00 06/27/18 08:59 05/31/18 08:20 Lisinopril (Prinivil) 20 mg QHS GT 05/31/18 21:00 06/30/18 00:59 05/31/18 20:09 Morphine Sulfate (Morphine Sulfate) 2 mg Q4H PRN IVP severe pain 7-10 05/27/18 13:15 06/03/18 13:14 Nitroglycerin (Ntg) 0.4 mg Q5M X 3 DOSES PRN SL Prn Chest Pain 05/27/18 13:15 06/26/18 13:14 Ondansetron HCl (Zofran) 4 mg Q6H PRN IVP Nausea & Vomiting 05/27/18 13:15 06/26/18 13:14 Piperacillin Sod/ Tazobactam Sod 3.375 gm/Sodium Chloride 110 ml @ 27.5 mls/hr Q8H IVPB 05/28/18 02:00 06/04/18 01:59 06/01/18 01:59 Polyethylene Glycol (Miralax) 17 gm HSPRN PRN GT Constipation 05/27/18 13:15 06/26/18 13:14 Temazepam (Restoril) 15 mg HSPRN PRN GT Insomnia 05/27/18 13:15 06/03/18 13:14 Vancomycin HCl (Vanco rx to dose) 1 ea DAILY PRN MISC Per rx protocol 05/27/18 21:30 06/26/18 21:29 Vancomycin HCl 750 mg/Sodium Chloride 275 ml @ 183.333 mls/hr Q12H IVPB 05/31/18 08:00 06/05/18 07:59 05/31/18 20:06 Ayan Gillespie MD Jun 01, 2018 06:39
--- NOTE | 2018-06-01 07:07 | NUR ---
HAND-OFF: Report given to MELISA Wade.Patient stable.
--- NOTE | 2018-06-01 07:09 | NUR ---
NURSE NOTES: Received report from MELISA Torres. Patient is resting in bed, in stable condition. No s/sx of SOB, breathing is even and unlabored. Vent settings are as ordered. Observed no presence of pain or discomfort at this time. Bed is in lowest position, brakes engaged. Call light is kept within easy reach. Will continue to monitor patient.
[2018-06-01 08:00] VITALS: BP 151/80
[2018-06-01 08:01] LABS: HEMATOCRIT 25.5 % (42.0-52.0); HEMOGLOBIN 7.8 G/DL (14.2-18.0); MEAN CORPUSCULAR VOLUME 77 FL (80-99); PLATELET COUNT 263 K/UL (150-450); RED BLOOD COUNT 3.31 M/UL (4.70-6.10); RED CELL DISTRIBUTION WIDTH 19.2 % (11.6-14.8)
[2018-06-01] MEDS: Heparin 5000 units/ml inj SUBQ SCH ×2 (08:20→20:40)
[2018-06-01] MEDS: levETIRAcetam 500mg/5ml Liquid GT SCH (08:20)
[2018-06-01 08:28] LABS: ANION GAP 7 mmol/L (5-15); BLOOD UREA NITROGEN 11 mg/dL (7-18); CALCIUM 8.3 MG/DL (8.5-10.1); CARBON DIOXIDE 28 MMOL/L (21-32); CHLORIDE 110 MMOL/L (98-107); CREATININE 0.8 MG/DL (0.55-1.30); SODIUM 145 MMOL/L (136-145)
--- NOTE | 2018-06-01 08:58 | NUR ---
NURSE NOTES: Informed Dr. Tripathi regarding Hgb level of 7.8. Dr. Tripathi acknowledged and ordered to transfuse 1 unit of PRBC. Noted. Order entered, noted, and carried out. Will continue to monitor patient.
[2018-06-01] MEDS: Vancomycin 750mg/NS 275ml IVPB SCH ×4 (09:24→20:39)
--- NOTE | 2018-06-01 09:30 | Progress Note ---
DATE: 05/31/2018 NOTE: POOR AUDIO SUBJECTIVE: The patient is awake, alert, afebrile, hemodynamically stable. PHYSICAL EXAMINATION: VITAL SIGNS: Blood pressure is 162/78, pulse is 64, respirations 18, and temperature 97.9. HEENT: Eyes were normal. ENT, mucous membranes were moist and intact. NECK: Supple with no JVD without lymph nodes. Tracheostomy site is clean. LUNGS: Clear without rhonchi, rales, or wheezing. Secretions are small, thin, and herrera. HEART: Normal sounds with regular beats. There is no S3, S4, or pericardial rub. ABDOMEN: Soft and nontender with normal bowel sounds. Gastrostomy site is clean. EXTREMITIES: Warm without cyanosis, clubbing, or edema. LABORATORY AND DIAGNOSTIC DATA: Hemoglobin is 8.3, hematocrit 26.1 with MCV of 77, WBC of 11.1, and platelets of 245. His BUN and creatinine is 15 and 0.8 respectively. Sodium is 144, potassium 3.9, chloride 110, CO2 is 28, calcium is 8.3. His phosphorus is 3.9, magnesium is 2.2. SGOT, SGPT, and alkaline phosphatase are normal. Albumin is 1.4 and total protein is 5.9. The patient CT scan of the abdomen and pelvis. blood pressure was uncontrolled became bradycardic and hypotensive. mg daily, in which the blood pressure has improved, but is not controlled. decreased to 40 mg daily. Please refer abdominal CT and pelvis. Janette Weaver M.D. DR: CHRIS JOB#: [id number] CC:
--- NOTE | 2018-06-01 09:57 | NUR ---
RADIOLOGY DEPT., CHEST X-RAY DONE.-P.DYE
--- NOTE | 2018-06-01 10:10 | Pulmonolgy Critical Care Note ---
Critical Care - Asmt/Plan Problems: (1) Acute on chronic respiratory failure (2) Sepsis (3) Nosocomial pneumonia (4) Severe sepsis (5) Pneumonia (6) Vegetative state (7) Contracture of joint of multiple sites (8) Chronic respiratory failure (9) Diabetes mellitus (10) Cerebrovascular accident (CVA) Respiratory: monitor respiratory rate, adjust FIO2, CXR, other - US to assess the fluid in the left thorax. 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 shift manager - Objective Last 24 Hour Vital Signs Date Time Temp Pulse Resp B/P (MAP) Pulse Ox O2 Delivery O2 Flow Rate FiO2 06/01/18 08:54 55 17 40 06/01/18 07:11 55 18 40 06/01/18 04:45 52 17 40 06/01/18 04:00 40 06/01/18 04:00 Mechanical Ventilator 06/01/18 04:00 98.1 57 18 156/82 (106) 99 06/01/18 03:21 50 06/01/18 02:39 54 19 40 06/01/18 01:05 53 24 40 06/01/18 00:00 Mechanical Ventilator 06/01/18 00:00 40 06/01/18 00:00 97.9 57 21 151/76 (101) 99 05/31/18 23:26 49 05/31/18 23:22 54 21 40 05/31/18 21:15 54 18 40 05/31/18 20:09 162/78 05/31/18 20:00 Mechanical Ventilator 05/31/18 20:00 40 05/31/18 20:00 97.9 54 19 170/72 (104) 98 05/31/18 19:32 57 05/31/18 18:45 55 17 40 05/31/18 16:59 50 22 40 05/31/18 16:00 40 05/31/18 16:00 Mechanical Ventilator 05/31/18 16:00 99.1 53 20 171/87 (115) 99 05/31/18 15:31 48 05/31/18 14:34 54 23 40 05/31/18 13:10 50 20 40 05/31/18 12:00 52 05/31/18 12:00 98.4 55 18 156/81 (106) 99 05/31/18 12:00 Mechanical Ventilator 05/31/18 12:00 40 05/31/18 10:59 54 20 40 Status: awake Condition: critical HEENT: atraumatic, normocephalic Neck: full ROM Lungs: clear, rales Heart: HR/BP stable Abdomen: soft, non-tender Extremities: no C/C/E, edema Accucheck: 152 Critical Care - Subjective ROS Limited/Unobtainable: Yes Condition: critical EKG Rhythm: Sinus Rhythm FI02: 40 Vent Support Breath Rate: 10 Vent Support Mode: AC Vent Tidal Volume: 500 Sputum Amount: Moderate PEEP: 5.0 PIP: 30 Tube Feeding Amount: 65 I&O: Intake and Output 05/31/18 06/01/18 19:00 07:00 Intake Total 1425.00 ml 745.000 ml Output Total 400 ml 250 ml Balance 1025.00 ml 495.000 ml Free Water 100 ml IV Total 610.00 ml 385.000 ml Tube Feeding 715 ml 260 ml Other 100 ml Output Urine Total 400 ml 250 ml # Bowel Movements 4 2 CXR: increasing fluid at left chest Labs: Laboratory Tests Test 06/01/18 07:00 White Blood Count 10.0 K/UL (4.8-10.8) Red Blood Count 3.31 M/UL (4.70-6.10) L Hemoglobin 7.8 G/DL (14.2-18.0) L Hematocrit 25.5 % (42.0-52.0) L Mean Corpuscular Volume 77 FL (80-99) L Mean Corpuscular Hemoglobin 23.7 PG (27.0-31.0) L Mean Corpuscular Hemoglobin Concent 30.8 G/DL (32.0-36.0) L Red Cell Distribution Width 19.2 % (11.6-14.8) H Platelet Count 263 K/UL (150-450) Mean Platelet Volume 8.0 FL (6.5-10.1) Neutrophils (%) (Auto) % (45.0-75.0) Lymphocytes (%) (Auto) % (20.0-45.0) Monocytes (%) (Auto) % (1.0-10.0) Eosinophils (%) (Auto) % (0.0-3.0) Basophils (%) (Auto) % (0.0-2.0) Differential Total Cells Counted 100 Neutrophils % (Manual) 72 % (45-75) Lymphocytes % (Manual) 18 % (20-45) L Monocytes % (Manual) 7 % (1-10) Eosinophils % (Manual) 3 % (0-3) Basophils % (Manual) 0 % (0-2) Band Neutrophils 0 % (0-8) Platelet Estimate Adequate Platelet Morphology Normal Hypochromasia 1+ Anisocytosis 1+ Microcytosis 1+ Sodium Level 145 MMOL/L (136-145) Potassium Level 3.0 MMOL/L (3.5-5.1) L Chloride Level 110 MMOL/L (98-107) H Carbon Dioxide Level 28 MMOL/L (21-32) Anion Gap 7 mmol/L (5-15) Blood Urea Nitrogen 11 mg/dL (7-18) Creatinine 0.8 MG/DL (0.55-1.30) Estimat Glomerular Filtration Rate > 60 mL/min (>60) Glucose Level 123 MG/DL (74-106) #H Calcium Level 8.3 MG/DL (8.5-10.1) L Vancomycin Level Trough 16.1 ug/mL (5.0-12.0) H Yomi Odom MD Jun 01, 2018 10:10
[2018-06-01 11:18] LABS: INR 1.1 (0.9-1.1)
[2018-06-01 12:00] VITALS: BP 159/77
--- NOTE | 2018-06-01 13:15 | Diagnostic Imaging Report ---
Indication: Dyspnea Technique: One view of the chest Comparison: 05/30/2018 Findings: Interim increase in size of previously demonstrated left pleural effusion, now large. There may be some underlying parenchymal consolidation as well. Patient is rotated to the right. The right lung and pleural space remain clear. Stable satisfactory position of left arm PICC and tracheostomy. Impression: Increasing large left pleural effusion, over 2 days.
--- NOTE | 2018-06-01 13:28 | Infectious Diseases Prog Note ---
Assessment/Plan Assessment/Plan ASSESSMENT/PLAN: 1. 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 sbe, providencia pna, sirs, leukocytosis, fevers - vancomycin plus zosyn for now - f/u on cultures, labs and chest x-ray - check echo - d/w RN - clinically better, leukocytosis and fevers better 2. Wound care protocol. 3. Trach, vent, and respiratory failure. 4. Dysphagia, G-tube. 5. CVA. 6. Poorly responsive. 7. Diabetes mellitus. 8. Hypertension. 9. Blood sugar and blood pressure treatment per primary. 10. Contractures. 11. Weakness secondary to CVA. 12. Chronic respiratory failure. 13. Vegetative state. 14. The patient currently is a full code. 15. Past medical history is noted. 16. No known allergies. 17. Social history is negative. 18. Family history is noncontributory. 19. MAR is noted. 20. Case was discussed with Dr. Weaver. 21. Continue treatment per primary consultants. Subjective Constitutional: Denies: fever HEENT: Reports: congestion - + vent Respiratory: Reports: shortness of breath - + vent Cardiovascular: Reports: other Gastrointestinal/Abdominal: Reports: nausea; Denies: vomiting, diarrhea Genitourinary: Reports: other - + olmos Neurologic: Reports: weakness Psychiatric: Reports: other - na Skin: Denies: rash Hematologic: Denies: bleeding Musculoskeletal: Denies: pain Allergies: Coded Allergies: No Known Allergies (Unverified , 05/27/18) Objective Vital Signs Last 24 Hour Vital Signs Date Time Temp Pulse Resp B/P (MAP) Pulse Ox O2 Delivery O2 Flow Rate FiO2 06/01/18 10:57 55 15 40 06/01/18 08:54 55 17 40 06/01/18 08:00 40 06/01/18 08:00 97.7 55 18 151/80 (103) 99 06/01/18 08:00 Mechanical Ventilator 06/01/18 08:00 54 06/01/18 07:11 55 18 40 06/01/18 04:45 52 17 40 06/01/18 04:00 40 06/01/18 04:00 Mechanical Ventilator 06/01/18 04:00 98.1 57 18 156/82 (106) 99 06/01/18 03:21 50 4/8/19 02:39 54 19 40 06/01/18 01:05 53 24 40 06/01/18 00:00 Mechanical Ventilator 06/01/18 00:00 40 06/01/18 00:00 97.9 57 21 151/76 (101) 99 05/31/18 23:26 49 05/31/18 23:22 54 21 40 05/31/18 21:15 54 18 40 05/31/18 20:09 162/78 05/31/18 20:00 Mechanical Ventilator 05/31/18 20:00 40 05/31/18 20:00 97.9 54 19 170/72 (104) 98 05/31/18 19:32 57 05/31/18 18:45 55 17 40 05/31/18 16:59 50 22 40 05/31/18 16:00 40 05/31/18 16:00 Mechanical Ventilator 05/31/18 16:00 99.1 53 20 171/87 (115) 99 05/31/18 15:31 48 05/31/18 14:34 54 23 40 Height (Feet): 5 Height (Inches): 6.00 Weight (Pounds): 175 General Appearance: no acute distress, other - stable on vent HEENT: atraumatic, anicteric, mucous membranes moist Respiratory/Chest: crackles/rales, rhonchi - bilaterally Cardiovascular: normal rate, regular rhythm, no gallop/murmur, no JVD Abdomen: normal bowel sounds, soft, non tender, no organomegaly Genitourinary: other - + olmos - urine slt cloudy Extremities: no cyanosis Skin: no rash Neurologic/Psychiatric: motor weakness, other - lethargic Lymphatic: no neck adenopathy Musculoskeletal: no effusion Objective Chest x-ray - 05/30/18 - EXAM: XR Chest, 1 View CLINICAL HISTORY: INFECT TECHNIQUE: Frontal view of the chest. COMPARISON: Chest x-ray, 05/29/18 1522 FINDINGS: Lungs: Hypoventilatory lungs. Similar left lower lung atelectasis/consolidation. Pleural space: Small left pleural effusion, slightly more loculated. No pneumothorax. Heart: Unremarkable. No cardiomegaly. Mediastinum: Unremarkable. Bones/joints: Unremarkable. Tubes, lines and devices: Tracheostomy tube. Stable left PICC line. IMPRESSION: 1. Hypoventilatory lungs. Similar left lower lung atelectasis/consolidation. 2. Small left pleural effusion, slightly more loculated. Microbiology Date/Time Source Procedure Growth Status 05/29/18 04:50 Blood Blood Culture - Final Staphylococcus Aureus Complete 05/28/18 04:45 Sputum Gram Stain - Final Complete 05/28/18 04:45 Sputum Culture - Final Providencia Stuartii Usual Upper Respiratory Thea Complete 05/27/18 11:45 Rectum VRE Culture - Final Enterococcus Faecalis - Vre Complete Laboratory Tests Test 06/01/18 07:00 06/01/18 10:55 White Blood Count 10.0 K/UL (4.8-10.8) Red Blood Count 3.31 M/UL (4.70-6.10) L Hemoglobin 7.8 G/DL (14.2-18.0) L Hematocrit 25.5 % (42.0-52.0) L Mean Corpuscular Volume 77 FL (80-99) L Mean Corpuscular Hemoglobin 23.7 PG (27.0-31.0) L Mean Corpuscular Hemoglobin Concent 30.8 G/DL (32.0-36.0) L Red Cell Distribution Width 19.2 % (11.6-14.8) H Platelet Count 263 K/UL (150-450) Mean Platelet Volume 8.0 FL (6.5-10.1) Neutrophils (%) (Auto) % (45.0-75.0) Lymphocytes (%) (Auto) % (20.0-45.0) Monocytes (%) (Auto) % (1.0-10.0) Eosinophils (%) (Auto) % (0.0-3.0) Basophils (%) (Auto) % (0.0-2.0) Differential Total Cells Counted 100 Neutrophils % (Manual) 72 % (45-75) Lymphocytes % (Manual) 18 % (20-45) L Monocytes % (Manual) 7 % (1-10) Eosinophils % (Manual) 3 % (0-3) Basophils % (Manual) 0 % (0-2) Band Neutrophils 0 % (0-8) Platelet Estimate Adequate Platelet Morphology Normal Hypochromasia 1+ Anisocytosis 1+ Microcytosis 1+ Sodium Level 145 MMOL/L (136-145) Potassium Level 3.0 MMOL/L (3.5-5.1) L Chloride Level 110 MMOL/L (98-107) H Carbon Dioxide Level 28 MMOL/L (21-32) Anion Gap 7 mmol/L (5-15) Blood Urea Nitrogen 11 mg/dL (7-18) Creatinine 0.8 MG/DL (0.55-1.30) Estimat Glomerular Filtration Rate > 60 mL/min (>60) Glucose Level 123 MG/DL (74-106) #H Calcium Level 8.3 MG/DL (8.5-10.1) L Vancomycin Level Trough 16.1 ug/mL (5.0-12.0) H Prothrombin Time 11.3 SEC (9.30-11.50) Prothromb Time International Ratio 1.1 (0.9-1.1) Activated Partial Thromboplast Time 27 SEC (23-33) Current Medications Medications (Trade) Dose Ordered Sig/Bhupinder Route PRN Reason Start Time Stop Time Status Last Admin Dose Admin Acetaminophen (Tylenol) 650 mg Q4H PRN GT fever 05/27/18 13:15 06/26/18 13:14 05/30/18 00:21 Chlorhexidine Gluconate (Jasmin-Hex 2%) 1 applic DAILY@2000 TOPIC 05/28/18 20:00 06/27/18 19:59 05/31/18 20:06 Dextrose (Dextrose 50%) 25 ml Q30M PRN IV Hypoglycemia 05/30/18 08:15 06/29/18 08:14 Dextrose (Dextrose 50%) 50 ml Q30M PRN IV Hypoglycemia 05/30/18 08:15 06/29/18 08:14 Folic Acid (Folate) 1 mg DAILY GT 06/01/18 09:00 06/29/18 08:59 06/01/18 08:20 Heparin Sodium (Porcine) (Heparin 5000 units/ml) 5,000 units EVERY 12 HOURS SUBQ 05/27/18 21:00 06/26/18 20:59 05/31/18 20:07 Insulin Aspart (NovoLOG) Q4HR SUBQ 05/27/18 18:00 06/26/18 17:59 06/01/18 05:16 Insulin Aspart (NovoLOG) 10 units EVERY 4 HOURS SUBQ 05/31/18 09:00 06/29/18 08:59 06/01/18 05:16 Iopamidol (Isovue-300 100ml) 100 ml NOW PRN INJ Radiology Procedure 05/30/18 00:15 Levetiracetam (Keppra) 1,500 mg DAILY GT 05/28/18 09:00 06/27/18 08:59 06/01/18 08:20 Lisinopril (Prinivil) 20 mg QHS GT 05/31/18 21:00 06/30/18 00:59 05/31/18 20:09 Piperacillin Sod/ Tazobactam Sod 3.375 gm/Sodium Chloride 110 ml @ 27.5 mls/hr Q8H IVPB 05/28/18 02:00 06/04/18 01:59 06/01/18 11:56 Temazepam (Restoril) 15 mg HSPRN PRN GT Insomnia 05/27/18 13:15 06/03/18 13:14 Vancomycin HCl (Vanco rx to dose) 1 ea DAILY PRN MISC Per rx protocol 05/27/18 21:30 06/26/18 21:29 Vancomycin HCl 750 mg/Sodium Chloride 275 ml @ 183.333 mls/hr Q12H IVPB 05/31/18 08:00 06/05/18 07:59 06/01/18 09:24 Raoul Leigh MD Jun 01, 2018 13:28
--- NOTE | 2018-06-01 14:00 | NUR ---
NURSE NOTES: Obtained telephone consent from patient's daughter, Chloé Monique, for blood transfusion of 1 unit of PRBC and ultrasound guided thoracentesis. Consent witnessed by this nurse and charge nurse, MELISA Jarvis. Consent is in chart. Will continue to monitor patient.
--- NOTE | 2018-06-01 14:08 | NUR ---
RD ASSESSMENT & RECOMMENDATIONS SEE CARE ACTIVITY FOR COMPLETE ASSESSMENT DAILY ESTIMATED NEEDS: Needs based on DM, wound, critical care 68.6kg adj 22-30 kcals/kg 4082-9407 total kcals 1.25-2 g protein/kg 86-137 g total protein 25-30 mL/kg 6277-6395 total fluid mLs NUTRITION DIAGNOSIS: 1) Swallowing difficulty r/t respiratory status as evidenced by pt is vent dep via trach, on GT feeds 2) Altered nutrition related lab values r/t diabetes as evidenced by elev Uglu on adm (4+), elev BG (200's-400's -> 123 286 improved) and elev accu checks (200's-300's-> 152 153 156 207 256 improved). 3) Increased kcal and pro needs r/t wound healing as evidenced by pt w/ multiple DTPI's and partial thickness wounds. CURRENT TF: Glucerna 1.2 @65ml/hr x20 hrs ENTERAL NUTRITION RECOMMENDATIONS: Glucerna 1.2 @55ml x24 hrs + Prosource x1 pack daily to provide 1320ml, 1584 kcal, 79g + 11g pro, 1063ml free H2O - REC TO INCREASE RUN TIME AND DECREASE TF RATE as above - Add Prosource 1 pack daily to better meet est pro needs - Flush per MD, HOB over 30 degrees ADDITIONAL RECOMMENDATIONS: 1) Monitor BGs closely- improving at this time -> consider long acting insulin 2) Calibrated bed scale wts 3) Wound care: PIPE BID + VIT C 250mg daily 4) Monitor lytes daily, replete as needed (low K)
--- NOTE | 2018-06-01 15:15 | Progress Note ---
DATE: 05/29/2018 SUBJECTIVE: The patient is afebrile and hemodynamically stable. He remains obtunded. PHYSICAL EXAMINATION: VITAL SIGNS: Blood pressure 158/85, his pulse is 62, respirations 20, and temperature 98.4. HEENT: Eyes were normal. ENT, mucous membranes were moist and intact. NECK: Supple with no JVD without lymph nodes. Tracheostomy site is clean. LUNGS: Clear without rhonchi, rales, or wheezing. Secretions are small, thin, and herrera. HEART: Normal sounds with regular beats. There is no tachycardia at rest. ABDOMEN: Soft and nontender with normal bowel sounds. Gastrostomy site is clean. EXTREMITIES: Warm without cyanosis, clubbing, or edema. LABORATORY AND DIAGNOSTIC DATA: Hemoglobin is 8.6, hematocrit 27.2 with MCV of 76, WBC of 13.1, and platelets of 271. BUN and creatinine are 20 and 0.8 respectively. Sodium is 148, potassium 3.8, chloride 113, and CO2 is 26. His calcium is 8.5 and phosphorus is 2.6, magnesium is 2.3. His liver enzymes are elevated. ASSESSMENT: 02:32 similar finding. Abdominal ultrasound was limited in visualization of the pancreas and abdominal aorta who had a questionable cholelithiasis without dilation of the common bile duct. There is mild hepatomegaly. No evidence of gallstones. There are stones in the upper pole of the right kidney. PLAN: 05:36 imaging study. 05:47 CT scan of the abdomen and pelvis with IV contrast will be requested. Repeat laboratory tests will be done in the a.m. Janette Weaver M.D. DR: ROSIE JOB#: [id number] CC:
--- NOTE | 2018-06-01 15:22 | NUR ---
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 PNA VS: BP 151/80, P 54, T 97.7, RR 18, SpO2 99 on VENT AC 10, TV 500, PEEP 5.0 FiO2 40 RBC 3.31, Hgb 7.8, Hct 25.5, K 3.0, Glucose 123] CXR Impression: Increasing large left pleural effusion, over 2 days. IS:VANCOMYCIN 275 IVPB KEPPRA 1,500mg GT ZOSYN 110ml IVPB NOVOLOG SUBQ HEPARIN SUBQ LISINOPRIL 20mg GT SDU STATUS
[2018-06-01 16:00] VITALS: BP 132/75
--- NOTE | 2018-06-01 17:49 | Diagnostic Imaging Report ---
Clinical Indication: Abdominal pain and abnormal liver function tests Technique: Enteric contrast given by gastrostomy tube IV administration nonionic contrast. Venous phase spiral acquisition obtained through the abdomen and pelvis. Multiplanar reconstructions were generated. Total dose length product 1383.08 mGycm. CTDIvol(s) 19.51,19.51 mGy. Dose reduction achieved using automated exposure control Comparison: None. Reference made to abdominal sonogram dated 05/29/2018 Findings: The cecum, ascending, and proximal transverse colon are upper limits of normal in caliber, gas and fluid-filled. The distal colon is more normal in caliber although portions of the sigmoid colon are prominent and filled with gas. No evidence of diverticulosis or diverticulitis. The appendix is normal. Contrast is seen throughout the entirety of the small bowel and reaches the cecum. No small bowel distention. No free or loculated intraperitoneal gas or fluid is evident. There is a gastrostomy tube in good position. The stomach is otherwise unremarkable. The distal esophagus and duodenum are unremarkable The gallbladder contains small gallstones in the neck. No biliary ductal dilatation. No definite choledocholithiasis. The liver demonstrates a subcentimeter low-attenuation in the medial segment 3. The pancreas, spleen, adrenals are unremarkable. Multiple calculi are seen in the right kidney. There are confluent calculi in the upper pole. The largest in the lower pole measures up to 8 cm long axis dimension, with smaller calculi in the upper pole. Multiple calculi are also seen in the left kidney, measuring up to 5 mm long axis dimension, with confluent calculi in the upper pole collecting system. No hydronephrosis or ureteral calculi demonstrated. However, there is a calcification in the bladder projecting right near the right ureteral orifice. Dependent calculi are seen centrally within the bladder lumen is well.. The kidneys demonstrate multiple cysts as well as subcentimeter low-attenuation lesions which are too small to characterize. No pelvic mass or adenopathy. There is evidence of an incompletely descended left testicle. There is edema of the bilateral lower flank and buttock and lumbar region subcutaneous fat. The included lower chest demonstrate what appears to be subcarinal lymphadenopathy, with nodes measuring up to 3.8 cm in long axis dimension. Prominent nodes are also seen in the precarinal region and aortopulmonary window, incompletely visualized. There is atelectasis/consolidation of what appears to be the entire left lower lobe. Small low-attenuation areas within the consolidated/atelectatic lung could represent areas of necrosis. There is a large left pleural effusion. There is a small right pleural effusion, with posterior dependent and compressive atelectasis of portions of the right lower lobe. The heart is mildly enlarged. There is minimal pericardial fluid. The bones demonstrate bilateral L5 spondylolysis, grade 1-2 L5 on S1 spondylolisthesis, and secondary degenerative change. They also demonstrate mild degenerative spondylosis changes. There is a mild compression fracture deformity of the T6 vertebral body. There is edema of the presacral fat Impression: Numerous bilateral intrarenal calculi, as described. There are calculi within the bladder, one of which is within the area of the right ureteral orifice and could represent a recently passed calculus. There is no hydronephrosis or perinephric fat stranding, however. Correlate with clinical findings Cholelithiasis Atelectasis/consolidation of what appears to be entire left lower lobe. Possible areas of necrosis within the consolidated lung Large left pleural effusion Mediastinal lymphadenopathy, nonspecific, could be reactive or neoplastic Small right pleural effusion Mild cardiomegaly Generalized edema of the subcutaneous fat, as described Edema of the presacral fat, without evidence of definite etiology. Could be related to the more generalized edema described above, or could relate to nonspecific inflammatory changes in this region. Bilateral L5 spondylolysis, grade 1-2 L5 on S1 spondylolisthesis and secondary degenerative change Mild T6 compression fracture deformity, age indeterminate. Consider MRI if considered clinically relevant incompletely descended left testicle. Bilateral renal cysts. Bilateral subcentimeter low-attenuation renal lesions which are too small to characterize. Left lobe liver lesion which is too small to characterize, all likely representing benign simple cysts. No further follow-up necessary Incidental findings as noted, including gastrostomy, degenerative spondylosis, minimal pericardial fluid The CT scanner at [facility] is accredited by the [employer] and the scans are performed using protocols designed to limit radiation exposure to as low as reasonably achievable to attain images of sufficient resolution adequate for diagnostic evaluation.
--- NOTE | 2018-06-01 18:11 | General Progress Note ---
Assessment/Plan Assessment/Plan Assessment and Recs: # Anemia of chronic disease due to underlying chronic medical issues, multifactorial --> Anemia workup has been ordered, rule out gi bleed, it has been reviewed --> No evidence of hemolysis is noted, peripheral smear has been reviewed. --> Hgb goal >7. Transfuse prn. --> Epogen or iron at this time is not particularly indicated --> Medications have been reviewed --> evaluate with Gi team prn --> hgb7.6-->8.3-->7.8 # Leukocytosis/Elevated white blood cell count, unspecified likely related to underlying stress reaction, smoking v more likely infection (PNA) --> have reviewed peripheral smear and bandemia/neutrophilia noted --> continue antibiotics if they have been started by ID team --> monitor for resolution, 19k-->13k-->10k # Acute on chronic respiratory failure --> on abx as per id --> pulm//cc on the case for manageemnt as well # Nosocomial pneumonia --> s/p abx treatment # Severe sepsis w/ pna --> on abx # Cerebrovascular accident (CVA) --> asa and statin # Vegetative state # Contracture of joint of multiple sites The timing of this note does not necessarily reflect the time of the patient was seen. Greatly appreciate consultation! Subjective Gastrointestinal/Abdominal: Denies: no symptoms, abdomen distended, abdominal pain, black stools, tarry stools, blood in stool, constipated, diarrhea, difficulty swallowing, nausea, poor appetite, poor fluid intake, rectal bleeding , vomiting, other Genitourinary: Denies: no symptoms, burning, discharge, frequency, flank pain, hematuria, incontinence, pain, urgency, other Neurologic/Psychiatric: Denies: no symptoms, anxiety, depressed, emotional problems, headache, numbness, paresthesia, pre-existing deficit, seizure, tingling, tremors, weakness, other Endocrine: Denies: no symptoms, excessive sweating, flushing, intolerance to cold, intolerance to heat, increased hunger, increased thirst, increased urine, unexplained weight gain, unexplained weight loss, other Allergies: Coded Allergies: No Known Allergies (Unverified , 05/27/18) Subjective 05/29: midline was leaking better, now in better position, no complaints 05/31: no major duress, hgb 8.3, no bleeding reported 06/01: remains obtunded, no night sweats, seen by endo Objective Last 24 Hour Vital Signs Date Time Temp Pulse Resp B/P (MAP) Pulse Ox O2 Delivery O2 Flow Rate FiO2 06/01/18 16:48 52 17 40 06/01/18 16:36 177/87 06/01/18 15:22 56 16 40 06/01/18 13:29 61 22 40 06/01/18 12:00 40 06/01/18 12:00 Mechanical Ventilator 06/01/18 12:00 57 06/01/18 12:00 97.9 52 18 159/77 (104) 99 06/01/18 10:57 55 15 40 06/01/18 08:54 55 17 40 06/01/18 08:00 40 06/01/18 08:00 97.7 55 18 151/80 (103) 99 06/01/18 08:00 Mechanical Ventilator 06/01/18 08:00 54 06/01/18 07:11 55 18 40 06/01/18 04:45 52 17 40 06/01/18 04:00 40 06/01/18 04:00 Mechanical Ventilator 06/01/18 04:00 98.1 57 18 156/82 (106) 99 06/01/18 03:21 50 06/01/18 02:39 54 19 40 06/01/18 01:05 53 24 40 06/01/18 00:00 Mechanical Ventilator 06/01/18 00:00 40 06/01/18 00:00 97.9 57 21 151/76 (101) 99 05/31/18 23:26 49 05/31/18 23:22 54 21 40 05/31/18 21:15 54 18 40 05/31/18 20:09 162/78 05/31/18 20:00 Mechanical Ventilator 05/31/18 20:00 40 05/31/18 20:00 97.9 54 19 170/72 (104) 98 05/31/18 19:32 57 05/31/18 18:45 55 17 40 Intake and Output 05/31/18 06/01/18 18:59 06:59 Intake Total 1500.00 ml 810.000 ml Output Total 400 ml 250 ml Balance 1100.00 ml 560.000 ml Free Water 100 ml IV Total 685.00 ml 385.000 ml Tube Feeding 715 ml 325 ml Other 100 ml Output Urine Total 400 ml 250 ml # Bowel Movements 4 2 Laboratory Tests 06/01/18 07:00: White Blood Count 10.0, Red Blood Count 3.31L, Hemoglobin 7.8L, Hematocrit 25.5L , Mean Corpuscular Volume 77L, Mean Corpuscular Hemoglobin 23.7L, Mean Corpuscular Hemoglobin Concent 30.8L, Red Cell Distribution Width 19.2H, Platelet Count 263, Mean Platelet Volume 8.0, Neutrophils (%) (Auto) , Lymphocytes (%) (Auto) , Monocytes (%) (Auto) , Eosinophils (%) (Auto) , Basophils (%) (Auto) , Differential Total Cells Counted 100, Neutrophils % ( Manual) 72, Lymphocytes % (Manual) 18L, Monocytes % (Manual) 7, Eosinophils % ( Manual) 3, Basophils % (Manual) 0, Band Neutrophils 0, Platelet Estimate Adequate, Platelet Morphology Normal, Hypochromasia 1+, Anisocytosis 1+, Microcytosis 1+, Sodium Level 145, Potassium Level 3.0L, Chloride Level 110H, Carbon Dioxide Level 28, Anion Gap 7, Blood Urea Nitrogen 11, Creatinine 0.8, Estimat Glomerular Filtration Rate > 60, Glucose Level 123#H, Calcium Level 8.3L , Vancomycin Level Trough 16.1H 06/01/18 10:55: Prothrombin Time 11.3, Prothromb Time International Ratio 1.1, Activated Partial Thromboplast Time 27 Height (Feet): 5 Height (Inches): 6.00 Weight (Pounds): 175 Objective PE: Vitals: reviewed, stable General Appearance: NAD HEENT: normocephalic, atraumatic Neck: non-tender, normal alignment Respiratory/Chest: crackles b/l noted, ++ trach/vent Cardiovascular/Chest: normal peripheral pulses, normal rate Abdomen: normal bowel sounds, soft, nontender ++ peg Extremities: normal range of motion Trey Tripathi MD Jun 01, 2018 18:11
--- NOTE | 2018-06-01 18:55 | Cardiology Report ---
APPROVED REPORT EXAM: Two-dimensional and M-mode echocardiogram with Doppler and color Doppler. INDICATION Vegitation Technically difficult and limited study due to poor acoustic windows and patient on ventilator. Study quality precludes accurate assessment of regional wall motion. M-mode measurements of left ventricle not obtainable due to cardiac position (angle). Normal left ventricular chamber size, systolic function and wall motion to extent visaulized. Left ventricular ejection fraction estimated to be 55 %. Threre appears to be no evidence of left ventricular hypertrophy. No evidence of pericardial effusion. All other cardiac chamber sizes are within normal limits. Focal aortic valve sclerosis with adequate cusp excursion. Mildly thickened mitral valve leaflets with normal excursion. Mild mitral annulus and aortic root calcification. Pulmonic valve not visualized. Normal tricuspid valve structure. Subcostal views not obtainable due to G tube. No discrete vegitations see. A color flow and spectral Doppler study was performed and revealed: Mild aortic insufficiency. Mild mitral regurgitation. Normal left ventricular diastolic function. Trace tricuspid regurgitation. Tricuspid systolic velocities suggests peak right ventricular systolic pressure of 25 mmHg.
--- NOTE | 2018-06-01 19:20 | NUR ---
NURSE NOTES: Received bedside report from MELISA Wade.Patient stable,no s/s of pain,no respiratory distress noted,pt obtunded,open eyes,SB-SR on wire insulator,trach-vent Portex 7 AC10 TV 500 FiO2 40% PEEP5 tolerated well,GT running with Glucerna 1.2 @ 65ml/hr,BS active in all quadrants,PICC ANGELES asymptomatic,intact inserted 05/29/18 Biopatch placed,next dressing change 06/05/18,double lumen TKO,blood is running,no adverse reaction noted,bed secured,call light within a reach,will continue to monitor and follow POC.
--- NOTE | 2018-06-01 19:32 | NUR ---
HAND-OFF: Report given to MELISA Torres.
[2018-06-01 20:00] VITALS: BP 158/77
[2018-06-01] MEDS: Dyna-Hex 2% Top Sol 2oz TOPIC SCH (20:39)
[2018-06-01] MEDS: Lisinopril 20mg tab GT SCH (20:39)
[2018-06-02] VITALS: BP 152/74
[2018-06-02] MEDS: NovoLOG Insulin Flexpen SUBQ SCH ×12 (01:32→21:22)
[2018-06-02] MEDS: Piperacillin/Tazobactam 3.375 GM in NS 110 ML IVPB SCH ×3 (01:33→17:04)
--- NOTE | 2018-06-02 03:00 | Progress Note ---
DATE: 06/01/2018 SUBJECTIVE: The patient is afebrile and hemodynamically stable with persistent bradycardia. PHYSICAL EXAMINATION: VITAL SIGNS: Blood pressure 158/77, his pulse is 52, respirations 19, and temperature 98.1. HEENT: Eyes were normal. ENT, mucous membranes were moist and intact. NECK: Supple with no JVD without lymph nodes. Tracheostomy site is clean. HEART: Normal sounds with regular beats. ABDOMEN: Soft and nontender with normal bowel sounds. EXTREMITIES: Warm without cyanosis, clubbing, or edema. LABORATORY AND DIAGNOSTIC DATA: Hemoglobin is 7.8, hematocrit 35.5 with MCV of 77, WBC of 10.0, and platelets 263. His BUN and creatinine is 11 and 0.8 respectively. His sodium is 145, potassium 3.0, chloride 110, CO2 is . IMPRESSION: The patient is relatively stable. He does have hypokalemia, 40 mEq one time. BMP will be done in the a.m. The patient is now for repeat chest x-ray. The patient on admission afebrile, hemodynamically stable without leukocytosis and with stable chest x-ray. Repeat laboratory tests will be done in the a.m. Janette Weaver M.D. DR: CLAUDINE JOB#: [id number] CC:
[2018-06-02 04:00] VITALS: BP 156/80
[2018-06-02 05:25] LABS: BASOPHILS % (AUTO) 0.7 % (0.0-2.0); EOSINOPHILS % (AUTO) 2.8 % (0.0-3.0); HEMATOCRIT 27.1 % (42.0-52.0); HEMOGLOBIN 8.5 G/DL (14.2-18.0); MEAN CORPUSCULAR VOLUME 77 FL (80-99); MONOCYTES % (AUTO) 7.6 % (1.0-10.0); PLATELET COUNT 287 K/UL (150-450); RED BLOOD COUNT 3.51 M/UL (4.70-6.10); WHITE BLOOD COUNT 8.2 K/UL (4.8-10.8)
[2018-06-02 05:45] LABS: ALANINE AMINOTRANSFERASE 19 U/L (12-78); ALBUMIN 1.4 G/DL (3.4-5.0); ALBUMIN/GLOBULIN RATIO 0.3 (1.0-2.7); ALKALINE PHOSPHATASE 64 U/L (46-116); ANION GAP 8 mmol/L (5-15); ASPARTATE AMINO TRANSFERASE 15 U/L (15-37); BILIRUBIN,TOTAL 0.2 MG/DL (0.2-1.0); BLOOD UREA NITROGEN 10 mg/dL (7-18); CARBON DIOXIDE 28 MMOL/L (21-32); CHLORIDE 108 MMOL/L (98-107); CREATININE 0.7 MG/DL (0.55-1.30); PHOSPHORUS 3.1 MG/DL (2.5-4.9); POTASSIUM 3.1 MMOL/L (3.5-5.1); SODIUM 144 MMOL/L (136-145)
--- NOTE | 2018-06-02 06:20 | General Progress Note ---
Assessment/Plan Problem List: (1) Diabetes mellitus ICD Codes: E11.9 - Type 2 diabetes mellitus without complications SNOMED: 98285360 (2) Chronic respiratory failure ICD Codes: J96.10 - Chronic respiratory failure, unspecified whether with hypoxia or hypercapnia SNOMED: 29111617 (3) Contracture of joint of multiple sites ICD Codes: M24.50 - Contracture, unspecified joint SNOMED: 44963708, 634123612 (4) Pneumonia ICD Codes: J18.9 - Pneumonia, unspecified organism SNOMED: 417302228 (5) Severe sepsis ICD Codes: A41.9 - Sepsis, unspecified organism; R65.20 - Severe sepsis without septic shock SNOMED: 16706603 (6) Vegetative state ICD Codes: R40.3 - Persistent vegetative state SNOMED: 01234741 (7) Cerebrovascular accident (CVA) ICD Codes: I63.9 - Cerebral infarction, unspecified SNOMED: 110633415 (8) Sepsis ICD Codes: A41.9 - Sepsis, unspecified organism SNOMED: 42577545 Assessment/Plan continue Novolog 10 units every 4 hours continue NISS every 4 hours Subjective ROS Limited/Unobtainable: Yes Allergies: Coded Allergies: No Known Allergies (Unverified , 05/27/18) Subjective events noted glucose values are controlled Item Value Date Time Bedside Blood Glucose 156 mg/dl H 06/02/18 0502 Bedside Blood Glucose 156 mg/dl H 06/02/18 0132 Bedside Blood Glucose 182 mg/dl H 06/01/18 2100 Bedside Blood Glucose 189 mg/dl H 06/01/18 1718 Bedside Blood Glucose 147 mg/dl H 06/01/18 1300 Bedside Blood Glucose 126 mg/dl H 06/01/18 0900 Bedside Blood Glucose 152 mg/dl H 06/01/18 0516 Objective Last 24 Hour Vital Signs Date Time Temp Pulse Resp B/P (MAP) Pulse Ox O2 Delivery O2 Flow Rate FiO2 06/02/18 04:00 40 06/02/18 04:00 98.2 58 23 156/80 (105) 99 06/02/18 04:00 Mechanical Ventilator 06/02/18 03:26 52 06/02/18 02:37 55 20 40 06/02/18 01:22 54 15 40 06/02/18 00:27 55 15 40 06/02/18 00:00 Mechanical Ventilator 06/02/18 00:00 98.2 53 17 152/74 (100) 99 06/01/18 23:36 53 06/01/18 23:11 56 20 40 06/01/18 21:06 52 19 40 06/01/18 20:39 158/77 06/01/18 20:08 56 20 40 06/01/18 20:00 40 06/01/18 20:00 Mechanical Ventilator 06/01/18 20:00 98.1 58 21 158/77 (104) 100 06/01/18 19:26 52 06/01/18 16:48 52 17 40 06/01/18 16:36 177/87 06/01/18 16:00 98.1 57 18 132/75 (94) 99 06/01/18 16:00 40 06/01/18 16:00 Mechanical Ventilator 06/01/18 16:00 53 06/01/18 15:22 56 16 40 06/01/18 13:29 61 22 40 06/01/18 12:00 40 06/01/18 12:00 Mechanical Ventilator 06/01/18 12:00 57 06/01/18 12:00 97.9 52 18 159/77 (104) 99 06/01/18 10:57 55 15 40 06/01/18 08:54 55 17 40 06/01/18 08:00 40 06/01/18 08:00 97.7 55 18 151/80 (103) 99 06/01/18 08:00 Mechanical Ventilator 06/01/18 08:00 54 06/01/18 07:11 55 18 40 Intake and Output 06/01/18 06/02/18 19:00 07:00 Intake Total 295 ml 931.250 ml Output Total 1750 ml Balance -1455 ml 931.250 ml Free Water 100 ml 30 ml IV Total 316.250 ml Tube Feeding 195 ml 585 ml Output Urine Total 1750 ml # Bowel Movements 4 1 Laboratory Tests 06/01/18 07:00: White Blood Count 10.0, Red Blood Count 3.31L, Hemoglobin 7.8L, Hematocrit 25.5L , Mean Corpuscular Volume 77L, Mean Corpuscular Hemoglobin 23.7L, Mean Corpuscular Hemoglobin Concent 30.8L, Red Cell Distribution Width 19.2H, Platelet Count 263, Mean Platelet Volume 8.0, Neutrophils (%) (Auto) , Lymphocytes (%) (Auto) , Monocytes (%) (Auto) , Eosinophils (%) (Auto) , Basophils (%) (Auto) , Differential Total Cells Counted 100, Neutrophils % ( Manual) 72, Lymphocytes % (Manual) 18L, Monocytes % (Manual) 7, Eosinophils % ( Manual) 3, Basophils % (Manual) 0, Band Neutrophils 0, Platelet Estimate Adequate, Platelet Morphology Normal, Hypochromasia 1+, Anisocytosis 1+, Microcytosis 1+, Sodium Level 145, Potassium Level 3.0L, Chloride Level 110H, Carbon Dioxide Level 28, Anion Gap 7, Blood Urea Nitrogen 11, Creatinine 0.8, Estimat Glomerular Filtration Rate > 60, Glucose Level 123#H, Calcium Level 8.3L , Vancomycin Level Trough 16.1H 06/01/18 10:55: Prothrombin Time 11.3, Prothromb Time International Ratio 1.1, Activated Partial Thromboplast Time 27 06/02/18 03:40: White Blood Count 8.2, Red Blood Count 3.51L, Hemoglobin 8.5L, Hematocrit 27.1L , Mean Corpuscular Volume 77L, Mean Corpuscular Hemoglobin 24.3L, Mean Corpuscular Hemoglobin Concent 31.5L, Red Cell Distribution Width 19.0H, Platelet Count 287, Mean Platelet Volume 8.4, Neutrophils (%) (Auto) 69.0, Lymphocytes (%) (Auto) 20.0, Monocytes (%) (Auto) 7.6, Eosinophils (%) (Auto) 2.8, Basophils (%) (Auto) 0.7, Sodium Level 144, Potassium Level 3.1L, Chloride Level 108H, Carbon Dioxide Level 28, Anion Gap 8, Blood Urea Nitrogen 10, Creatinine 0.7, Estimat Glomerular Filtration Rate > 60, Glucose Level 138H, Calcium Level 8.0L, Phosphorus Level 3.1, Magnesium Level 1.9, Total Bilirubin 0.2, Aspartate Amino Transf (AST/SGOT) 15, Alanine Aminotransferase (ALT/SGPT) 19, Alkaline Phosphatase 64, Total Protein 5.9L, Albumin 1.4L, Globulin 4.5, Albumin/Globulin Ratio 0.3L Height (Feet): 5 Height (Inches): 6.00 Weight (Pounds): 175 General Appearance: lethargic EENT: other - trach Neck: normal alignment Cardiovascular: normal rate Respiratory/Chest: decreased breath sounds Abdomen: normal bowel sounds Objective Current Medications Medications (Trade) Dose Ordered Sig/Bhupinder Route PRN Reason Start Time Stop Time Status Last Admin Dose Admin Acetaminophen (Tylenol) 650 mg Q4H PRN GT fever 05/27/18 13:15 06/26/18 13:14 05/30/18 00:21 Chlorhexidine Gluconate (Jasmin-Hex 2%) 1 applic DAILY@1999 TOPIC 05/28/18 20:00 06/27/18 19:59 06/01/18 20:39 Clonidine HCl (Catapres Tab) 0.1 mg Q6H PRN GT For High Blood Pressure 06/01/18 16:30 07/01/18 16:29 06/01/18 16:36 Dextrose (Dextrose 50%) 25 ml Q30M PRN IV Hypoglycemia 05/30/18 08:15 06/29/18 08:14 Dextrose (Dextrose 50%) 50 ml Q30M PRN IV Hypoglycemia 05/30/18 08:15 06/29/18 08:14 Folic Acid (Folate) 1 mg DAILY GT 06/01/18 09:00 06/29/18 08:59 06/01/18 08:20 Heparin Sodium (Porcine) (Heparin 5000 units/ml) 5,000 units EVERY 12 HOURS SUBQ 05/27/18 21:00 06/26/18 20:59 06/01/18 20:40 Insulin Aspart (NovoLOG) Q4HR SUBQ 05/27/18 18:00 06/26/18 17:59 06/02/18 05:02 Insulin Aspart (NovoLOG) 10 units EVERY 4 HOURS SUBQ 05/31/18 09:00 06/29/18 08:59 06/02/18 05:02 Iopamidol (Isovue-300 100ml) 100 ml NOW PRN INJ Radiology Procedure 05/30/18 00:15 Levetiracetam (Keppra) 1,500 mg DAILY GT 05/28/18 09:00 06/27/18 08:59 06/01/18 08:20 Lisinopril (Prinivil) 20 mg QHS GT 05/31/18 21:00 06/30/18 00:59 06/01/18 20:39 Piperacillin Sod/ Tazobactam Sod 3.375 gm/Sodium Chloride 110 ml @ 27.5 mls/hr Q8H IVPB 05/28/18 02:00 06/04/18 01:59 06/02/18 01:33 Temazepam (Restoril) 15 mg HSPRN PRN GT Insomnia 05/27/18 13:15 06/03/18 13:14 Vancomycin HCl (Vanco rx to dose) 1 ea DAILY PRN MISC Per rx protocol 05/27/18 21:30 06/26/18 21:29 Vancomycin HCl 750 mg/Sodium Chloride 275 ml @ 183.333 mls/hr Q12H IVPB 05/31/18 08:00 06/05/18 07:59 06/01/18 20:39 Ayan Gillespie MD Jun 02, 2018 06:20
--- NOTE | 2018-06-02 06:57 | NUR ---
HAND-OFF: Report given to MELISA Wade.Patient stable.
--- NOTE | 2018-06-02 07:41 | NUR ---
NURSE NOTES: recived patient report from frida lomas rn. johnny is on bed asleep. not in acute distress. comfortable. sr to sb. noted trach ac 10 tv 500 fi02 40 peep 5. with feeding running at prescribed rate. with condom cath, patent, draining.on overlay mattress. will follow plan of care.
[2018-06-02 08:00] VITALS: BP 173/74
--- NOTE | 2018-06-02 08:26 | NUR ---
RADIOLOGY DEPT., CHEST X-RAY DONE.-P.DYE
[2018-06-02] MEDS: levETIRAcetam 500mg/5ml Liquid GT SCH (08:40)
[2018-06-02] MEDS: Heparin 5000 units/ml inj SUBQ SCH ×2 (08:41→21:21)
[2018-06-02] MEDS: Vancomycin 750mg/NS 275ml IVPB SCH ×4 (09:15→21:19)
--- NOTE | 2018-06-02 09:49 | Pulmonolgy Critical Care Note ---
Critical Care - Asmt/Plan Problems: (1) Acute on chronic respiratory failure (2) Sepsis (3) Nosocomial pneumonia (4) Severe sepsis (5) Pneumonia (6) Vegetative state (7) Contracture of joint of multiple sites (8) Chronic respiratory failure (9) Diabetes mellitus (10) Cerebrovascular accident (CVA) Respiratory: monitor respiratory rate, adjust FIO2, CXR Cardiac: continue pressors, continue to monitor HR/BP Renal: F/U I&O Infectious Disease: check cultures Gastrointestinal: continue feedings/current rate, hold feedings Endocrine: check TSH, check HgA1C Neurologic: PRN Morphine, keep patient comfortable Affect: PRN ativan Prophylaxis: Heparin Time Spent (Minutes): 40 Notes Reviewed: cardio Discussed with: nurses, consultants, director case managementstrategic planning manager - Objective Last 24 Hour Vital Signs Date Time Temp Pulse Resp B/P (MAP) Pulse Ox O2 Delivery O2 Flow Rate FiO2 06/02/18 08:30 56 20 40 06/02/18 08:00 98.9 61 21 173/74 (107) 99 06/02/18 08:00 40 06/02/18 08:00 Mechanical Ventilator 06/02/18 07:00 53 19 40 06/02/18 06:26 46 19 40 06/02/18 04:00 40 06/02/18 04:00 98.2 58 23 156/80 (105) 99 06/02/18 04:00 Mechanical Ventilator 06/02/18 03:26 52 06/02/18 02:37 55 20 40 06/02/18 01:22 54 15 40 06/02/18 00:27 55 15 40 06/02/18 00:00 Mechanical Ventilator 06/02/18 00:00 98.2 53 17 152/74 (100) 99 06/01/18 23:36 53 06/01/18 23:11 56 20 40 06/01/18 21:06 52 19 40 06/01/18 20:39 158/77 06/01/18 20:08 56 20 40 06/01/18 20:00 40 06/01/18 20:00 Mechanical Ventilator 06/01/18 20:00 98.1 58 21 158/77 (104) 100 06/01/18 19:26 52 06/01/18 16:48 52 17 40 06/01/18 16:36 177/87 06/01/18 16:00 98.1 57 18 132/75 (94) 99 06/01/18 16:00 40 06/01/18 16:00 Mechanical Ventilator 06/01/18 16:00 53 06/01/18 15:22 56 16 40 06/01/18 13:29 61 22 40 06/01/18 12:00 40 06/01/18 12:00 Mechanical Ventilator 06/01/18 12:00 57 06/01/18 12:00 97.9 52 18 159/77 (104) 99 06/01/18 10:57 55 15 40 Status: sedated Condition: critical HEENT: atraumatic Neck: full ROM Heart: HR/BP unstable Abdomen: soft, active bowel sounds Extremities: no C/C/E Micro: Microbiology Date/Time Source Procedure Growth Status 05/31/18 04:55 Blood Blood Culture - Preliminary NO GROWTH AFTER 24 HOURS Resulted 05/31/18 04:50 Blood Blood Culture - Preliminary NO GROWTH AFTER 24 HOURS Resulted Accucheck: 153 Critical Care - Subjective ROS Limited/Unobtainable: Yes Condition: critical FI02: 40 Vent Support Breath Rate: 10 Vent Support Mode: AC Vent Tidal Volume: 500 Sputum Amount: Small PEEP: 5.0 PIP: 28 Tube Feeding Amount: 65 I&O: Intake and Output 06/01/18 06/02/18 19:00 07:00 Intake Total 295 ml 1180.000 ml Output Total 1750 ml 1000 ml Balance -1455 ml 180.000 ml Free Water 100 ml 80 ml IV Total 385.000 ml Tube Feeding 195 ml 715 ml Output Urine Total 1750 ml 1000 ml # Bowel Movements 4 2 CXR: extensive infiltrate Labs: Laboratory Tests Test 06/01/18 10:55 06/02/18 03:40 Prothrombin Time 11.3 SEC (9.30-11.50) Prothromb Time International Ratio 1.1 (0.9-1.1) Activated Partial Thromboplast Time 27 SEC (23-33) White Blood Count 8.2 K/UL (4.8-10.8) Red Blood Count 3.51 M/UL (4.70-6.10) L Hemoglobin 8.5 G/DL (14.2-18.0) L Hematocrit 27.1 % (42.0-52.0) L Mean Corpuscular Volume 77 FL (80-99) L Mean Corpuscular Hemoglobin 24.3 PG (27.0-31.0) L Mean Corpuscular Hemoglobin Concent 31.5 G/DL (32.0-36.0) L Red Cell Distribution Width 19.0 % (11.6-14.8) H Platelet Count 287 K/UL (150-450) Mean Platelet Volume 8.4 FL (6.5-10.1) Neutrophils (%) (Auto) 69.0 % (45.0-75.0) Lymphocytes (%) (Auto) 20.0 % (20.0-45.0) Monocytes (%) (Auto) 7.6 % (1.0-10.0) Eosinophils (%) (Auto) 2.8 % (0.0-3.0) Basophils (%) (Auto) 0.7 % (0.0-2.0) Sodium Level 144 MMOL/L (136-145) Potassium Level 3.1 MMOL/L (3.5-5.1) L Chloride Level 108 MMOL/L (98-107) H Carbon Dioxide Level 28 MMOL/L (21-32) Anion Gap 8 mmol/L (5-15) Blood Urea Nitrogen 10 mg/dL (7-18) Creatinine 0.7 MG/DL (0.55-1.30) Estimat Glomerular Filtration Rate > 60 mL/min (>60) Glucose Level 138 MG/DL (74-106) H Calcium Level 8.0 MG/DL (8.5-10.1) L Phosphorus Level 3.1 MG/DL (2.5-4.9) Magnesium Level 1.9 MG/DL (1.8-2.4) Total Bilirubin 0.2 MG/DL (0.2-1.0) Aspartate Amino Transf (AST/SGOT) 15 U/L (15-37) Alanine Aminotransferase (ALT/SGPT) 19 U/L (12-78) Alkaline Phosphatase 64 U/L (46-116) Total Protein 5.9 G/DL (6.4-8.2) L Albumin 1.4 G/DL (3.4-5.0) L Globulin 4.5 g/dL Albumin/Globulin Ratio 0.3 (1.0-2.7) L Yomi Odom MD Jun 02, 2018 09:49
--- NOTE | 2018-06-02 11:45 | NUR ---
NURSE NOTES: Spoke with Dr. De from radiology regarding patient's ultrasound guided thoracentesis. Per Dr. De, attempting to contact patient's daughter Chloé Monique via telephone regarding procedure. Thoracentesis on hold until Dr. De speaks with patient's daughter. Noted. Charge nurse aware. Will continue to monitor patient.
[2018-06-02 12:00] VITALS: BP_SYST 149; BP_SYST 174; BP_DIAS 77; BP_DIAS 79
--- NOTE | 2018-06-02 13:03 | Diagnostic Imaging Report ---
Indication: Dyspnea Technique: One view of the chest Comparison: June 01, 2018 Findings: Large left pleural effusion again demonstrated. Right lung remains clear. There may be a small right pleural effusion. Tracheostomy, left arm PICC remain. Findings are overall unchanged except for the right costophrenic angle blunting Impression: Possible new small right pleural effusion Otherwise unchanged over one day
--- NOTE | 2018-06-02 14:50 | NUR ---
NURSE NOTES: Ultrasound guided thoracentesis at bedside performed by Dr. De. 1 liter of body fluid aspirated. Sample body fluid sent to lab for analysis. Will continue to monitor patient.
--- NOTE | 2018-06-02 15:41 | Brief Operative Note ---
Immediate Post Operative Note Operative Note Chief Complaint: SOB Pre-op Diagnosis: pleural effusion Procedure: thoracentesis L Post-op Diagnosis: same as pre-op Findings: consistent w/pre-op dx studies Surgeon: Jose L Amaya Anesthesia: local Specimen: yes - blood tinged fluid sent to lab Complications: none Fluids: none Implant(s) used?: No Sarabjit Amaya MD Jun 02, 2018 15:41
[2018-06-02 16:00] VITALS: BP 165/71
--- NOTE | 2018-06-02 16:32 | Diagnostic Imaging Report ---
Indications: Pleural effusion Technique: Ultrasound used to localize optimal puncture site. Sterile prepping and draping left chest. Local anesthesia with 1% lidocaine. Under real-time ultrasound guidance, puncture pleural space using thoracentesis needle. Stylet removed. Catheter placed to vacuum bottle suction. Total 1000 milliliters of serosanguineous fluid aspirated. Patient tolerated procedure well, without immediate complication. A specimen was sent to the lab Findings: Followup sonography demonstrates complete resolution of pleural fluid. Impression: Successful ultrasound-guided thoracentesis, yielding 1000 milliliters of serosanguineous fluid
--- NOTE | 2018-06-02 17:58 | Diagnostic Imaging Report ---
Indication: Post thoracentesis Technique: One view of the chest Comparison: 8 hours earlier Findings: There is decreased pleural fluid on the left. There is some residual, however. There is no considerable parenchymal consolidation or atelectasis. Generalized mild interstitial edema persists bilaterally as well. Tracheostomy remains. Left arm PICC remain. There is no pneumothorax Impression: Decreased left pleural effusion, post thoracentesis. There is evidence of some residual, and note that residual pleural fluid was also demonstrated at the completion of the thoracentesis by ultrasound. This may indicate loculation. No radiographically evident complication Other findings as noted
--- NOTE | 2018-06-02 18:24 | NUR ---
NURSE NOTES: left a message to dr galindo regarding patients HR of 34 asymptomatic. awaits callback and new order as of this time. Addendum: 06/02/18 at 1831 by ASHLYN OCHOA RN wrong entry. disregard above note.
--- NOTE | 2018-06-02 18:25 | NUR ---
NURSE NOTES: dr galindo called back and ordered that ' dr butts" is the medical accounting clerk on the case.
--- NOTE | 2018-06-02 18:25 | NUR ---
NURSE NOTES: left a message to dr galindo regarding patients HR of 44 asymptomatic. awaits callback and new order as of this time.
--- NOTE | 2018-06-02 19:14 | NUR ---
HAND-OFF: Report given to frida love.
--- NOTE | 2018-06-02 19:15 | NUR ---
NURSE NOTES: Received bedside report from MELISA Vicente.Patient stable,no s/s of pain,no respiratory distress noted,pt obtunded,open eyes,SB-SR on secured entrance monitor,trach-vent Portex 7 AC10 TV 500 FiO2 40% PEEP 5 tolerated well,GT running with Glucerna 1.2 @ 65ml/hr,BS active in all quadrants,PICC ANGELES asymptomatic,intact inserted 05/29/[address], dressing change 06/02/18,double lumen TKO,not working for blood withdraw, bed secured,call light within a reach,will continue to monitor and follow POC.
[2018-06-02] MEDS ORDERED: Tubing IV Secondary IV ONE (19:21)
[2018-06-02] MEDS ORDERED: NS 275ml ONE (19:21)
[2018-06-02 20:00] VITALS: BP 155/78
--- NOTE | 2018-06-02 20:37 | General Progress Note ---
Assessment/Plan Assessment/Plan Assessment and Recs: # Anemia of chronic disease due to underlying chronic medical issues, multifactorial --> Anemia workup has been ordered, rule out gi bleed, it has been reviewed --> No evidence of hemolysis is noted, peripheral smear has been reviewed. --> Hgb goal >7. Transfuse prn. --> Epogen or iron at this time is not particularly indicated --> Medications have been reviewed --> evaluate with Gi team prn --> hgb7.6-->8.3-->7.8-->8,5 # Leukocytosis/Elevated white blood cell count, unspecified likely related to underlying stress reaction, smoking v more likely infection (PNA) --> have reviewed peripheral smear and bandemia/neutrophilia noted --> continue antibiotics if they have been started by ID team --> monitor for resolution, 19k-->13k-->10k-->8k # Acute on chronic respiratory failure --> on abx as per id --> pulm//cc on the case for manageemnt as well # Nosocomial pneumonia --> s/p abx treatment # Severe sepsis w/ pna --> on abx # Cerebrovascular accident (CVA) --> asa and statin # Vegetative state # Contracture of joint of multiple sites The timing of this note does not necessarily reflect the time of the patient was seen. Greatly appreciate consultation! Subjective HEENT: Denies: no symptoms, eye pain, blurred vision, tearing, double vision, ear pain, ear discharge, nose pain, nose congestion, throat pain, throat swelling, mouth pain, mouth swelling, other Cardiovascular: Denies: no symptoms, chest pain, edema, irregular heart rate, lightheadedness, palpitations, syncope, other Respiratory: Denies: no symptoms, cough, orthopnea, shortness of breath, SOB with excertion, SOB at rest, sputum, stridor, wheezing, other Gastrointestinal/Abdominal: Denies: no symptoms, abdomen distended, abdominal pain, black stools, tarry stools, blood in stool, constipated, diarrhea, difficulty swallowing, nausea, poor appetite, poor fluid intake, rectal bleeding , vomiting, other Genitourinary: Denies: no symptoms, burning, discharge, frequency, flank pain, hematuria, incontinence, pain, urgency, other Neurologic/Psychiatric: Denies: no symptoms, anxiety, depressed, emotional problems, headache, numbness, paresthesia, pre-existing deficit, seizure, tingling, tremors, weakness, other Endocrine: Denies: no symptoms, excessive sweating, flushing, intolerance to cold, intolerance to heat, increased hunger, increased thirst, increased urine, unexplained weight gain, unexplained weight loss, other Hematologic/Lymphatic: Denies: no symptoms, anemia, easy bleeding, easy bruising, other Allergies: Coded Allergies: No Known Allergies (Unverified , 05/27/18) Subjective 05/29: midline was leaking better, now in better position, no complaints 05/31: no major duress, hgb 8.3, no bleeding reported 06/01: remains obtunded, no night sweats, seen by endo 06/02: no events to report, is bradycardic, asymptomatic Objective Last 24 Hour Vital Signs Date Time Temp Pulse Resp B/P (MAP) Pulse Ox O2 Delivery O2 Flow Rate FiO2 06/02/18 19:29 46 18 40 06/02/18 17:21 165/71 06/02/18 17:06 54 22 40 06/02/18 16:00 Mechanical Ventilator 06/02/18 16:00 98.1 48 26 165/71 (102) 100 06/02/18 16:00 40 06/02/18 16:00 60 06/02/18 14:30 52 20 40 06/02/18 13:00 49 20 40 06/02/18 12:00 40 06/02/18 12:00 98.6 53 22 149/79 (102) 99 06/02/18 12:00 76 06/02/18 12:00 Mechanical Ventilator 06/02/18 11:11 51 18 40 06/02/18 10:26 173/74 06/02/18 08:30 56 20 40 06/02/18 08:00 98.9 61 21 173/74 (107) 99 06/02/18 08:00 40 06/02/18 08:00 Mechanical Ventilator 06/02/18 08:00 76 06/02/18 07:00 53 19 40 06/02/18 06:26 46 19 40 06/02/18 04:00 40 06/02/18 04:00 98.2 58 23 156/80 (105) 99 06/02/18 04:00 Mechanical Ventilator 06/02/18 03:26 52 06/02/18 02:37 55 20 40 06/02/18 01:22 54 15 40 06/02/18 00:27 55 15 40 06/02/18 00:00 Mechanical Ventilator 06/02/18 00:00 98.2 53 17 152/74 (100) 99 06/01/18 23:36 53 06/01/18 23:11 56 20 40 06/01/18 21:06 52 19 40 06/01/18 20:39 158/77 Intake and Output 06/01/18 06/02/18 18:59 06:59 Intake Total 230 ml 1245.000 ml Output Total 1750 ml 1000 ml Balance -1520 ml 245.000 ml Free Water 100 ml 80 ml IV Total 385.000 ml Tube Feeding 130 ml 780 ml Output Urine Total 1750 ml 1000 ml # Bowel Movements 4 2 Laboratory Tests 06/02/18 03:40: White Blood Count 8.2, Red Blood Count 3.51L, Hemoglobin 8.5L, Hematocrit 27.1L , Mean Corpuscular Volume 77L, Mean Corpuscular Hemoglobin 24.3L, Mean Corpuscular Hemoglobin Concent 31.5L, Red Cell Distribution Width 19.0H, Platelet Count 287, Mean Platelet Volume 8.4, Neutrophils (%) (Auto) 69.0, Lymphocytes (%) (Auto) 20.0, Monocytes (%) (Auto) 7.6, Eosinophils (%) (Auto) 2.8, Basophils (%) (Auto) 0.7, Sodium Level 144, Potassium Level 3.1L, Chloride Level 108H, Carbon Dioxide Level 28, Anion Gap 8, Blood Urea Nitrogen 10, Creatinine 0.7, Estimat Glomerular Filtration Rate > 60, Glucose Level 138H, Calcium Level 8.0L, Phosphorus Level 3.1, Magnesium Level 1.9, Total Bilirubin 0.2, Aspartate Amino Transf (AST/SGOT) 15, Alanine Aminotransferase (ALT/SGPT) 19, Alkaline Phosphatase 64, Total Protein 5.9L, Albumin 1.4L, Globulin 4.5, Albumin/Globulin Ratio 0.3L 06/02/18 15:00: Body Fluid Source Thoracentesis, Body Fluid Volume 24 ml, Body Fluid Appearance Red/cloudy, Body Fl[place] [address], Body Fluid Total Nucleated Cells 1713, Body Fluid Polynuclear WBCs (%) 26, Body Fluid Mononuclear WBCs (%) 73, Body Fluid Mesothelial Cells (%) 1, Body Fluid Glucose [Pending], Body Fluid Total Protein [Pending], Body Fluid Albumin [Pending] Height (Feet): 5 Height (Inches): 6.00 Weight (Pounds): 175 Objective PE: Vitals: reviewed, stable General Appearance: NAD HEENT: normocephalic, atraumatic Neck: non-tender, normal alignment Respiratory/Chest: crackles b/l noted, ++ trach/vent Cardiovascular/Chest: normal peripheral pulses, normal rate Abdomen: normal bowel sounds, soft, nontender ++ peg Extremities: normal range of motion Trey Tripathi MD Jun 02, 2018 20:37
[2018-06-02] MEDS: Lisinopril 20mg tab GT SCH (21:19)
[2018-06-02] MEDS: Dyna-Hex 2% Top Sol 2oz TOPIC SCH (21:19)
[2018-06-03] VITALS (7 sets, daily range): BP systolic 137–176; BP diastolic 67–87
[2018-06-03] MEDS: NovoLOG Insulin Flexpen SUBQ SCH ×8 (01:12→17:14)
[2018-06-03] MEDS: Piperacillin/Tazobactam 3.375 GM in NS 110 ML IVPB SCH ×2 (01:16→10:17)
[2018-06-03 05:19] LABS: BASOPHILS % (AUTO) 0.8 % (0.0-2.0); EOSINOPHILS % (AUTO) 1.9 % (0.0-3.0); HEMATOCRIT 28.4 % (42.0-52.0); HEMOGLOBIN 8.9 G/DL (14.2-18.0); LYMPHOCYTES % (AUTO) 18.6 % (20.0-45.0); MEAN CORPUSCULAR VOLUME 77 FL (80-99); MONOCYTES % (AUTO) 8.3 % (1.0-10.0); NEUTROPHILS % (AUTO) 70.4 % (45.0-75.0); PLATELET COUNT 319 K/UL (150-450); RED BLOOD COUNT 3.67 M/UL (4.70-6.10); RED CELL DISTRIBUTION WIDTH 19.2 % (11.6-14.8); WHITE BLOOD COUNT 8.1 K/UL (4.8-10.8)
[2018-06-03 06:09] LABS: ALANINE AMINOTRANSFERASE 15 U/L (12-78); ALBUMIN 1.6 G/DL (3.4-5.0); ALBUMIN/GLOBULIN RATIO 0.3 (1.0-2.7); ALKALINE PHOSPHATASE 68 U/L (46-116); ANION GAP 6 mmol/L (5-15); ASPARTATE AMINO TRANSFERASE 14 U/L (15-37); BILIRUBIN,TOTAL 0.2 MG/DL (0.2-1.0); BLOOD UREA NITROGEN 9 mg/dL (7-18); CALCIUM 8.4 MG/DL (8.5-10.1); CARBON DIOXIDE 29 MMOL/L (21-32); CHLORIDE 111 MMOL/L (98-107); CREATININE 0.8 MG/DL (0.55-1.30); POTASSIUM 3.5 MMOL/L (3.5-5.1); SODIUM 146 MMOL/L (136-145)
--- NOTE | 2018-06-03 06:40 | General Progress Note ---
Assessment/Plan Problem List: (1) Diabetes mellitus ICD Codes: E11.9 - Type 2 diabetes mellitus without complications SNOMED: 87587249 (2) Chronic respiratory failure ICD Codes: J96.10 - Chronic respiratory failure, unspecified whether with hypoxia or hypercapnia SNOMED: 95889135 (3) Contracture of joint of multiple sites ICD Codes: M24.50 - Contracture, unspecified joint SNOMED: 29305398, 185367793 (4) Pneumonia ICD Codes: J18.9 - Pneumonia, unspecified organism SNOMED: 946520448 (5) Severe sepsis ICD Codes: A41.9 - Sepsis, unspecified organism; R65.20 - Severe sepsis without septic shock SNOMED: 44236843 (6) Vegetative state ICD Codes: R40.3 - Persistent vegetative state SNOMED: 66653265 (7) Cerebrovascular accident (CVA) ICD Codes: I63.9 - Cerebral infarction, unspecified SNOMED: 692894719 (8) Sepsis ICD Codes: A41.9 - Sepsis, unspecified organism SNOMED: 90042814 Assessment/Plan continue Novolog 10 units every 6 hours continue NISS every 6 hours Subjective ROS Limited/Unobtainable: Yes Allergies: Coded Allergies: No Known Allergies (Unverified , 05/27/18) Subjective events noted Item Value Date Time Bedside Blood Glucose 230 mg/dl H 06/03/18 0600 Bedside Blood Glucose 165 mg/dl H 06/03/18 0112 Bedside Blood Glucose 175 mg/dl H 06/02/18 2122 Bedside Blood Glucose 153 mg/dl H 06/02/18 1647 Bedside Blood Glucose 99 mg/dl 06/02/18 1300 Bedside Blood Glucose 153 mg/dl H 06/02/18 0900 Bedside Blood Glucose 156 mg/dl H 06/02/18 0502 Objective Last 24 Hour Vital Signs Date Time Temp Pulse Resp B/P (MAP) Pulse Ox O2 Delivery O2 Flow Rate FiO2 06/03/18 05:44 54 24 Mechanical Ventilator 40 06/03/18 05:20 54 24 40 06/03/18 04:00 40 06/03/18 04:00 99.1 75 20 164/81 (108) 99 06/03/18 04:00 Mechanical Ventilator 06/03/18 03:45 57 06/03/18 03:06 69 24 40 06/03/18 01:25 70 24 40 06/03/18 00:00 99.1 51 18 157/77 (103) 99 06/03/18 00:00 Mechanical Ventilator 06/02/18 23:30 47 06/02/18 23:06 46 14 40 06/02/18 21:19 155/78 06/02/18 21:14 64 23 40 06/02/18 20:00 40 06/02/18 20:00 98.2 56 20 155/78 (103) 98 06/02/18 20:00 Mechanical Ventilator 06/02/18 19:29 46 18 40 06/02/18 19:09 47 06/02/18 17:21 165/71 06/02/18 17:06 54 22 40 06/02/18 16:00 Mechanical Ventilator 06/02/18 16:00 98.1 48 26 165/71 (102) 100 06/02/18 16:00 40 06/02/18 16:00 60 06/02/18 14:30 52 20 40 06/02/18 13:00 49 20 40 06/02/18 12:00 40 06/02/18 12:00 98.6 53 22 149/79 (102) 99 06/02/18 12:00 76 06/02/18 12:00 Mechanical Ventilator 06/02/18 11:11 51 18 40 06/02/18 10:26 173/74 06/02/18 08:30 56 20 40 06/02/18 08:00 98.9 61 21 173/74 (107) 99 06/02/18 08:00 40 06/02/18 08:00 Mechanical Ventilator 06/02/18 08:00 76 06/02/18 07:00 53 19 40 Intake and Output 06/02/18 06/03/18 19:00 07:00 Intake Total 1544.163 ml 835.500 ml Output Total 3850 ml Balance -2305.837 ml 835.500 ml Intake Oral 0 ml Free Water 75 ml 30 ml IV Total 504.163 ml 350.500 ml Tube Feeding 965 ml 455 ml Output Urine Total 1850 ml Other 2000 ml # Bowel Movements 5 1 Laboratory Tests 06/02/18 15:00: Body Fluid Source Thoracentesis, Body Fluid Volume 24 ml, Body Fluid Appearance Red/cloudy, [place] [address], Body Fluid Total Nucleated Cells 1713, Body Fluid Polynuclear WBCs (%) 26, Body Fluid Mononuclear WBCs (%) 73, Body Fluid Mesothelial Cells (%) 1, Body Fluid Glucose [Pending], Body Fluid Total Protein [Pending], Body Fluid Albumin [Pending] 06/03/18 04:20: White Blood Count 8.1, Red Blood Count 3.67L, Hemoglobin 8.9L, Hematocrit 28.4L , Mean Corpuscular Volume 77L, Mean Corpuscular Hemoglobin 24.2L, Mean Corpuscular Hemoglobin Concent 31.4L, Red Cell Distribution Width 19.2H, Platelet Count 319, Mean Platelet Volume 7.8, Neutrophils (%) (Auto) 70.4, Lymphocytes (%) (Auto) 18.6L, Monocytes (%) (Auto) 8.3, Eosinophils (%) (Auto) 1.9, Basophils (%) (Auto) 0.8, Sodium Level 146H, Potassium Level 3.5, Chloride Level 111H, Carbon Dioxide Level 29, Anion Gap 6, Blood Urea Nitrogen 9, Creatinine 0.8, Estimat Glomerular Filtration Rate > 60, Glucose Level 215H, Calcium Level 8.4L, Total Bilirubin 0.2, Aspartate Amino Transf (AST/SGOT) 14L, Alanine Aminotransferase (ALT/SGPT) 15, Alkaline Phosphatase 68, Pro-B-Type Natriuretic Peptide 3408H, Total Protein 6.5, Albumin 1.6L, Globulin 4.9, Albumin/Globulin Ratio 0.3L Height (Feet): 5 Height (Inches): 6.00 Weight (Pounds): 217 General Appearance: lethargic EENT: other - trach Neck: normal alignment Cardiovascular: normal rate Respiratory/Chest: decreased breath sounds Abdomen: normal bowel sounds, other - PEG Pelvis: normal external exam Edema: 2+ Arm (L), 2+ Arm (R), 2+ Leg (L), 2+ Leg (R), 2+ Pedal (L), 2+ Pedal ( R), 2+ Generalized Objective Current Medications Medications (Trade) Dose Ordered Sig/Bhupinder Route PRN Reason Start Time Stop Time Status Last Admin Dose Admin Acetaminophen (Tylenol) 650 mg Q4H PRN GT fever 05/27/18 13:15 06/26/18 13:14 05/30/18 00:21 Chlorhexidine Gluconate (Jasmin-Hex 2%) 1 applic DAILY@2000 TOPIC 05/28/18 20:00 06/27/18 19:59 06/02/18 21:19 Clonidine HCl (Catapres Tab) 0.1 mg Q6H PRN GT For High Blood Pressure 06/01/18 16:30 07/01/18 16:29 06/02/18 17:21 Dextrose (Dextrose 50%) 25 ml Q30M PRN IV Hypoglycemia 06/03/18 01:45 07/03/18 01:44 Dextrose (Dextrose 50%) 25 ml Q30M PRN IV Hypoglycemia 05/30/18 08:15 06/29/18 08:14 Dextrose (Dextrose 50%) 50 ml Q30M PRN IV Hypoglycemia 06/03/18 01:45 07/03/18 01:44 Dextrose (Dextrose 50%) 50 ml Q30M PRN IV Hypoglycemia 05/30/18 08:15 06/29/18 08:14 Folic Acid (Folate) 1 mg DAILY GT 06/01/18 09:00 06/29/18 08:59 06/02/18 08:40 Heparin Sodium (Porcine) (Heparin 5000 units/ml) 5,000 units EVERY 12 HOURS SUBQ 05/27/18 21:00 06/26/18 20:59 06/02/18 21:21 Insulin Aspart (NovoLOG) EVERY 6 HOURS SUBQ 06/03/18 06:00 07/03/18 05:59 06/03/18 05:38 Insulin Aspart (NovoLOG) 10 units EVERY 6 HOURS SUBQ 06/03/18 06:00 07/03/18 05:59 06/03/18 05:40 Iopamidol (Isovue-300 100ml) 100 ml NOW PRN INJ Radiology Procedure 05/30/18 00:15 Levetiracetam (Keppra) 1,500 mg DAILY GT 05/28/18 09:00 06/27/18 08:59 06/02/18 08:40 Lisinopril (Prinivil) 20 mg QHS GT 05/31/18 21:00 06/30/18 00:59 06/02/18 21:19 Piperacillin Sod/ Tazobactam Sod 3.375 gm/Sodium Chloride 110 ml @ 27.5 mls/hr Q8H IVPB 05/28/18 02:00 06/04/18 01:59 06/03/18 01:16 Temazepam (Restoril) 15 mg HSPRN PRN GT Insomnia 05/27/18 13:15 06/03/18 13:14 Vancomycin HCl (Vanco rx to dose) 1 ea DAILY PRN MISC Per rx protocol 05/27/18 21:30 06/26/18 21:29 Vancomycin HCl 750 mg/Sodium Chloride 275 ml @ 183.333 mls/hr Q12H IVPB 05/31/18 08:00 06/05/18 07:59 06/02/18 21:19 Ayan Gillespie MD Jun 03, 2018 06:40
--- NOTE | 2018-06-03 07:02 | NUR ---
RESPIRATORY NOTE: Patient received mechanically ventilated on PB 840 with current ordered vent settings. Patient has trach size 7.0 Portex cuffed that is secured with trach tie and guard. There are bilateral coarse breath sounds present and small amount of thick/thin, clear/white secretions were suctioned without incident. Vent alarms are functional and audible and the vent is connected to a red outlet. There is an ambu bag available at the bedside. Will continue to monitor.
--- NOTE | 2018-06-03 07:03 | NUR ---
HAND-OFF: Report given to MELISA Flaherty/MELISA Vicente.Patient stable.
--- NOTE | 2018-06-03 07:04 | NUR ---
NURSE NOTES: received patient report from frida love. patient is on bed asleep. not in acute distress. on vent. comfortable. sinus komal on the monitor. bed is low an dlocked. will follow plan of care.
[2018-06-03] MEDS: levETIRAcetam 500mg/5ml Liquid GT SCH (08:09)
[2018-06-03] MEDS: Heparin 5000 units/ml inj SUBQ SCH ×2 (08:10→21:01)
[2018-06-03] MEDS: Vancomycin 750mg/NS 275ml IVPB SCH ×2 (08:11)
--- NOTE | 2018-06-03 08:44 | NUR ---
RADIOLOGY DEPT., CHEST X-RAY DONE.-P.DYE
--- NOTE | 2018-06-03 10:55 | Pulmonolgy Critical Care Note ---
Critical Care - Asmt/Plan Problems: (1) Acute on chronic respiratory failure (2) Sepsis (3) Nosocomial pneumonia (4) Severe sepsis (5) Pneumonia (6) Vegetative state (7) Contracture of joint of multiple sites (8) Chronic respiratory failure (9) Diabetes mellitus (10) Cerebrovascular accident (CVA) Respiratory: monitor respiratory rate, adjust FIO2, CXR Cardiac: continue pressors Renal: F/U I&O, check electrolytes Infectious Disease: check cultures Gastrointestinal: hold feedings Endocrine: check TSH, check HgA1C Hematologic: transfuse if hgb<8.5 Neurologic: PRN Ativan, keep patient comfortable Affect: PRN ativan Prophylaxis: Heparin Notes Reviewed: hardscape foreman, cardio Discussed with: nurses, consultants, upper casermanager civil - Objective Last 24 Hour Vital Signs Date Time Temp Pulse Resp B/P (MAP) Pulse Ox O2 Delivery O2 Flow Rate FiO2 06/03/18 09:06 59 16 40 06/03/18 08:00 98.2 61 18 156/73 (100) 97 06/03/18 08:00 Mechanical Ventilator 06/03/18 08:00 89 06/03/18 08:00 40 06/03/18 06:55 58 18 40 06/03/18 05:44 54 24 Mechanical Ventilator 40 06/03/18 05:20 54 24 40 06/03/18 04:00 40 06/03/18 04:00 99.1 75 20 164/81 (108) 99 06/03/18 04:00 Mechanical Ventilator 06/03/18 03:45 57 06/03/18 03:06 69 24 40 06/03/18 01:25 70 24 40 06/03/18 00:00 99.1 51 18 157/77 (103) 99 06/03/18 00:00 Mechanical Ventilator 06/02/18 23:30 47 06/02/18 23:06 46 14 40 06/02/18 21:19 155/78 06/02/18 21:14 64 23 40 06/02/18 20:00 40 06/02/18 20:00 98.2 56 20 155/78 (103) 98 06/02/18 20:00 Mechanical Ventilator 06/02/18 19:29 46 18 40 06/02/18 19:09 47 06/02/18 17:21 165/71 06/02/18 17:06 54 22 40 06/02/18 16:00 Mechanical Ventilator 06/02/18 16:00 98.1 48 26 165/71 (102) 100 06/02/18 16:00 40 06/02/18 16:00 60 06/02/18 14:30 52 20 40 06/02/18 13:00 49 20 40 06/02/18 12:00 40 06/02/18 12:00 98.6 53 22 149/79 (102) 99 06/02/18 12:00 76 06/02/18 12:00 Mechanical Ventilator 06/02/18 11:11 51 18 40 Status: sedated Condition: critical Lungs: clear Heart: HR/BP unstable Abdomen: soft, feeding tube Micro: Microbiology Date/Time Source Procedure Growth Status 06/02/18 03:45 Blood Blood Culture - Preliminary NO GROWTH AFTER 24 HOURS Resulted 06/02/18 03:40 Blood Blood Culture - Preliminary NO GROWTH AFTER 24 HOURS Resulted 06/02/18 15:00 Pleural Fluid Gram Stain - Final Resulted 06/02/18 15:00 Pleural Fluid Body Fluid Culture - Preliminary NO GROWTH Resulted Accucheck: 230 Critical Care - Subjective ROS Limited/Unobtainable: No Condition: critical EKG Rhythm: Sinus Rhythm FI02: 40 Vent Support Breath Rate: 10 Vent Support Mode: AC Vent Tidal Volume: 500 Sputum Amount: Small PEEP: 5.0 PIP: 28 Tube Feeding Amount: 65 I&O: Intake and Output 06/02/18 06/03/18 19:00 07:00 Intake Total 1544.163 ml 1145.500 ml Output Total 3850 ml 2000 ml Balance -2305.837 ml -854.500 ml Intake Oral 0 ml Free Water 75 ml 80 ml IV Total 504.163 ml 350.500 ml Tube Feeding 965 ml 715 ml Output Urine Total 1850 ml 2000 ml Other 2000 ml # Bowel Movements 5 2 Labs: Laboratory Tests Test 06/02/18 15:00 06/03/18 04:20 Body Fluid Source Thoracentesis Body Fluid Volume 24 ml mL Body Fluid Appearance Red/cloudy (Clear) Body Fluid RBC 30960 /CUMM Body Fluid Total Nucleated Cells 1713 /CUMM Body Fluid Polynuclear WBCs (%) 26 % Body Fluid Mononuclear WBCs (%) 73 % Body Fluid Mesothelial Cells (%) 1 % Body Fluid Glucose Pending Body Fluid Total Protein Pending Body Fluid Albumin Pending White Blood Count 8.1 K/UL (4.8-10.8) Red Blood Count 3.67 M/UL (4.70-6.10) L Hemoglobin 8.9 G/DL (14.2-18.0) L Hematocrit 28.4 % (42.0-52.0) L Mean Corpuscular Volume 77 FL (80-99) L Mean Corpuscular Hemoglobin 24.2 PG (27.0-31.0) L Mean Corpuscular Hemoglobin Concent 31.4 G/DL (32.0-36.0) L Red Cell Distribution Width 19.2 % (11.6-14.8) H Platelet Count 319 K/UL (150-450) Mean Platelet Volume 7.8 FL (6.5-10.1) Neutrophils (%) (Auto) 70.4 % (45.0-75.0) Lymphocytes (%) (Auto) 18.6 % (20.0-45.0) L Monocytes (%) (Auto) 8.3 % (1.0-10.0) Eosinophils (%) (Auto) 1.9 % (0.0-3.0) Basophils (%) (Auto) 0.8 % (0.0-2.0) Sodium Level 146 MMOL/L (136-145) H Potassium Level 3.5 MMOL/L (3.5-5.1) Chloride Level 111 MMOL/L (98-107) H Carbon Dioxide Level 29 MMOL/L (21-32) Anion Gap 6 mmol/L (5-15) Blood Urea Nitrogen 9 mg/dL (7-18) Creatinine 0.8 MG/DL (0.55-1.30) Estimat Glomerular Filtration Rate > 60 mL/min (>60) Glucose Level 215 MG/DL (74-106) H Calcium Level 8.4 MG/DL (8.5-10.1) L Total Bilirubin 0.2 MG/DL (0.2-1.0) Aspartate Amino Transf (AST/SGOT) 14 U/L (15-37) L Alanine Aminotransferase (ALT/SGPT) 15 U/L (12-78) Alkaline Phosphatase 68 U/L (46-116) Pro-B-Type Natriuretic Peptide 3408 pg/mL (0-125) H Total Protein 6.5 G/DL (6.4-8.2) Albumin 1.6 G/DL (3.4-5.0) L Globulin 4.9 g/dL Albumin/Globulin Ratio 0.3 (1.0-2.7) L Yomi Odom MD Jun 03, 2018 10:55
--- NOTE | 2018-06-03 11:13 | Diagnostic Imaging Report ---
Indication: Dyspnea Technique: One view of the chest Comparison: 06/02/2018 Findings: Tracheostomy, left arm PICC remain. Left sided pleural fluid and hazy parenchymal opacity persists, unchanged. Right lung and pleural space remain clear Impression: Unchanged, over one day, findings as above.
--- NOTE | 2018-06-03 11:31 | NUR ---
DISCHARGE PLANNED PT. DC TO [facility] 17B RESIDENTIAL T- FOR NURSE TO NURSE REPORT [facility] WILL SAW MAN AT [phone]
[2018-06-03] MEDS: Acetaminophen 650mg/20.3ml GT PRN (12:29)
--- NOTE | 2018-06-03 12:54 | NUR ---
NURSE NOTES: dr galindo made aware that patients SBP was 176, had episode of seizure and increased temp of 101.5. dr galindo ordered to cancel dishcharge order. will take note and carry out.
--- NOTE | 2018-06-03 15:26 | Infectious Diseases Prog Note ---
Assessment/Plan Assessment/Plan ASSESSMENT/PLAN: 1. 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 sbe, providencia pna, sirs, leukocytosis, fevers, fevers persist, fungemia risk, ? new nosocomial infection, leukocytosis better - change antibiotics to meropenem, vancomycin and diflucan (fungemia coverage ) - recheck cultures, monitor labs and chest x-ray - check echo - d/w RN - please see orders 2. Wound care protocol. 3. Trach, vent, and respiratory failure. 4. Dysphagia, G-tube. 5. CVA. 6. Poorly responsive. 7. Diabetes mellitus. 8. Hypertension. 9. Blood sugar and blood pressure treatment per primary. 10. Contractures. 11. Weakness secondary to CVA. 12. Chronic respiratory failure. 13. Vegetative state. 14. The patient currently is a full code. 15. Past medical history is noted. 16. No known allergies. 17. Social history is negative. 18. Family history is noncontributory. 19. MAR is noted. 20. Case was discussed with Dr. Weaver. 21. Continue treatment per primary consultants. Subjective Constitutional: Reports: fever, fatigue, other - + trach and vent HEENT: Reports: congestion Respiratory: Reports: shortness of breath Cardiovascular: Reports: other - no pressors Gastrointestinal/Abdominal: Denies: nausea, vomiting, diarrhea Genitourinary: Reports: other - + condom catheter Neurologic: Reports: weakness, other - poorly responsive Psychiatric: Reports: other - na Skin: Denies: rash Hematologic: Denies: bleeding Musculoskeletal: Reports: other - na Allergies: Coded Allergies: No Known Allergies (Unverified , 05/27/18) Objective Vital Signs Last 24 Hour Vital Signs Date Time Temp Pulse Resp B/P (MAP) Pulse Ox O2 Delivery O2 Flow Rate FiO2 06/03/18 14:42 68 22 40 06/03/18 13:17 63 18 40 06/03/18 13:03 99.9 161/85 (110) 06/03/18 12:59 99.9 06/03/18 12:29 176/87 06/03/18 12:00 101.5 85 20 176/87 (116) 98 06/03/18 12:00 Mechanical Ventilator 06/03/18 12:00 40 06/03/18 12:00 75 06/03/18 10:55 83 21 40 06/03/18 09:06 59 16 40 06/03/18 08:00 98.2 61 18 156/73 (100) 97 06/03/18 08:00 Mechanical Ventilator 06/03/18 08:00 89 06/03/18 08:00 40 06/03/18 06:55 58 18 40 06/03/18 05:44 54 24 Mechanical Ventilator 40 06/03/18 05:20 54 24 40 06/03/18 04:00 40 06/03/18 04:00 99.1 75 20 164/81 (108) 99 06/03/18 04:00 Mechanical Ventilator 06/03/18 03:45 57 06/03/18 03:06 69 24 40 06/03/18 01:25 70 24 40 06/03/18 00:00 99.1 51 18 157/77 (103) 99 06/03/18 00:00 Mechanical Ventilator 06/02/18 23:30 47 06/02/18 23:06 46 14 40 06/02/18 21:19 155/78 06/02/18 21:14 64 23 40 06/02/18 20:00 40 06/02/18 20:00 98.2 56 20 155/78 (103) 98 06/02/18 20:00 Mechanical Ventilator 06/02/18 19:29 46 18 40 06/02/18 19:09 47 06/02/18 17:21 165/71 06/02/18 17:06 54 22 40 06/02/18 16:00 Mechanical Ventilator 06/02/18 16:00 98.1 48 26 165/71 (102) 100 06/02/18 16:00 40 06/02/18 16:00 60 Height (Feet): 5 Height (Inches): 6.00 Weight (Pounds): 217 General Appearance: no acute distress, other - nad on vent HEENT: normocephalic, atraumatic, anicteric, no JVD, status post trach Respiratory/Chest: crackles/rales, rhonchi - bilaterally Cardiovascular: normal rate, regular rhythm, no gallop/murmur, no JVD Abdomen: normal bowel sounds, soft, non tender, no organomegaly, non distended Genitourinary: other - + condom catheter - urine clear Extremities: no cyanosis Skin: no rash Neurologic/Psychiatric: motor weakness, other - poorly responsive Lymphatic: no neck adenopathy Musculoskeletal: no effusion Objective Chest x-ray - 05/30/18 - EXAM: XR Chest, 1 View CLINICAL HISTORY: INFECT TECHNIQUE: Frontal view of the chest. COMPARISON: Chest x-ray, 05/29/18 1522 FINDINGS: Lungs: Hypoventilatory lungs. Similar left lower lung atelectasis/consolidation. Pleural space: Small left pleural effusion, slightly more loculated. No pneumothorax. Heart: Unremarkable. No cardiomegaly. Mediastinum: Unremarkable. Bones/joints: Unremarkable. Tubes, lines and devices: Tracheostomy tube. Stable left PICC line. IMPRESSION: 1. Hypoventilatory lungs. Similar left lower lung atelectasis/consolidation. 2. Small left pleural effusion, slightly more loculated. Chest x-ray - 06/03 - Procedure: XRAY Chest 1v Indication: Dyspnea Technique: One view of the chest Comparison: 06/02/2018 Findings: Tracheostomy, left arm PICC remain. Left sided pleural fluid and hazy parenchymal opacity persists, unchanged. Right lung and pleural space remain clear Impression: Unchanged, over one day, findings as above. Microbiology Date/Time Source Procedure Growth Status 06/02/18 03:45 Blood Blood Culture - Preliminary NO GROWTH AFTER 24 HOURS Resulted 06/02/18 15:00 Pleural Fluid Gram Stain - Final Resulted 06/02/18 15:00 Pleural Fluid Body Fluid Culture - Preliminary NO GROWTH Resulted 05/28/18 04:45 Sputum Gram Stain - Final Complete 05/28/18 04:45 Sputum Culture - Final Providencia Stuartii Usual Upper Respiratory Thea Complete 05/27/18 11:45 Rectum VRE Culture - Final Enterococcus Faecalis - Vre Complete Microbiology Date/Time Source Procedure Growth Status 06/02/18 03:45 Blood Blood Culture - Preliminary NO GROWTH AFTER 24 HOURS Resulted 06/02/18 03:40 Blood Blood Culture - Preliminary NO GROWTH AFTER 24 HOURS Resulted 06/02/18 15:00 Pleural Fluid Gram Stain - Final Resulted 06/02/18 15:00 Pleural Fluid Body Fluid Culture - Preliminary NO GROWTH Resulted Laboratory Tests Test 06/03/18 04:20 White Blood Count 8.1 K/UL (4.8-10.8) Red Blood Count 3.67 M/UL (4.70-6.10) L Hemoglobin 8.9 G/DL (14.2-18.0) L Hematocrit 28.4 % (42.0-52.0) L Mean Corpuscular Volume 77 FL (80-99) L Mean Corpuscular Hemoglobin 24.2 PG (27.0-31.0) L Mean Corpuscular Hemoglobin Concent 31.4 G/DL (32.0-36.0) L Red Cell Distribution Width 19.2 % (11.6-14.8) H Platelet Count 319 K/UL (150-450) Mean Platelet Volume 7.8 FL (6.5-10.1) Neutrophils (%) (Auto) 70.4 % (45.0-75.0) Lymphocytes (%) (Auto) 18.6 % (20.0-45.0) L Monocytes (%) (Auto) 8.3 % (1.0-10.0) Eosinophils (%) (Auto) 1.9 % (0.0-3.0) Basophils (%) (Auto) 0.8 % (0.0-2.0) Sodium Level 146 MMOL/L (136-145) H Potassium Level 3.5 MMOL/L (3.5-5.1) Chloride Level 111 MMOL/L (98-107) H Carbon Dioxide Level 29 MMOL/L (21-32) Anion Gap 6 mmol/L (5-15) Blood Urea Nitrogen 9 mg/dL (7-18) Creatinine 0.8 MG/DL (0.55-1.30) Estimat Glomerular Filtration Rate > 60 mL/min (>60) Glucose Level 215 MG/DL (74-106) H Calcium Level 8.4 MG/DL (8.5-10.1) L Total Bilirubin 0.2 MG/DL (0.2-1.0) Aspartate Amino Transf (AST/SGOT) 14 U/L (15-37) L Alanine Aminotransferase (ALT/SGPT) 15 U/L (12-78) Alkaline Phosphatase 68 U/L (46-116) Pro-B-Type Natriuretic Peptide 3408 pg/mL (0-125) H Total Protein 6.5 G/DL (6.4-8.2) Albumin 1.6 G/DL (3.4-5.0) L Globulin 4.9 g/dL Albumin/Globulin Ratio 0.3 (1.0-2.7) L Current Medications Medications (Trade) Dose Ordered Sig/Bhupinder Route PRN Reason Start Time Stop Time Status Last Admin Dose Admin Acetaminophen (Tylenol) 650 mg Q4H PRN GT fever 05/27/18 13:15 06/26/18 13:14 06/03/18 12:29 Chlorhexidine Gluconate (Jasmin-Hex 2%) 1 applic DAILY@2000 TOPIC 05/28/18 20:00 06/27/18 19:59 06/02/18 21:19 Clonidine HCl (Catapres Tab) 0.1 mg Q6H PRN GT For High Blood Pressure 06/01/18 16:30 07/01/18 16:29 06/03/18 12:29 Dextrose (Dextrose 50%) 25 ml Q30M PRN IV Hypoglycemia 06/03/18 01:45 07/03/18 01:44 Dextrose (Dextrose 50%) 25 ml Q30M PRN IV Hypoglycemia 05/30/18 08:15 06/29/18 08:14 Dextrose (Dextrose 50%) 50 ml Q30M PRN IV Hypoglycemia 06/03/18 01:45 07/03/18 01:44 Dextrose (Dextrose 50%) 50 ml Q30M PRN IV Hypoglycemia 05/30/18 08:15 06/29/18 08:14 Folic Acid (Folate) 1 mg DAILY GT 06/01/18 09:00 06/29/18 08:59 06/03/18 08:09 Heparin Sodium (Porcine) (Heparin 5000 units/ml) 5,000 units EVERY 12 HOURS SUBQ 05/27/18 21:00 06/26/18 20:59 06/03/18 08:10 Insulin Aspart (NovoLOG) EVERY 6 HOURS SUBQ 06/03/18 06:00 07/03/18 05:59 06/03/18 11:36 Insulin Aspart (NovoLOG) 10 units EVERY 6 HOURS SUBQ 06/03/18 06:00 07/03/18 05:59 06/03/18 11:36 Iopamidol (Isovue-300 100ml) 100 ml NOW PRN INJ Radiology Procedure 05/30/18 00:15 Levetiracetam (Keppra) 1,500 mg DAILY GT 05/28/18 09:00 06/27/18 08:59 06/03/18 08:09 Lisinopril (Prinivil) 20 mg QHS GT 05/31/18 21:00 06/30/18 00:59 06/02/18 21:19 Piperacillin Sod/ Tazobactam Sod 3.375 gm/Sodium Chloride 110 ml @ 27.5 mls/hr Q8H IVPB 05/28/18 02:00 06/04/18 01:59 06/03/18 10:17 Vancomycin HCl (Vanco rx to dose) 1 ea DAILY PRN MISC Per rx protocol 05/27/18 21:30 06/26/18 21:29 Vancomycin HCl 750 mg/Sodium Chloride 275 ml @ 183.333 mls/hr Q12H IVPB 05/31/18 08:00 06/05/18 07:59 06/03/18 08:11 Raoul Leigh MD Jun 03, 2018 15:26
[2018-06-03 16:07] LABS: APPEARANCE,URINE CLEAR; BILIRUBIN, URINE NEGATIVE (NEGATIVE); COLOR,URINE PALE YELLOW; GLUCOSE, URINE (UA) NEGATIVE (NEGATIVE); KETONES,URINE NEGATIVE (NEGATIVE); LEUKOCYTE ESTERASE ,URINE 2+ (NEGATIVE); NITRITE,URINE NEGATIVE (NEGATIVE); PH,URINE 6.5 (4.5-8.0); PROTEIN,URINE 2+ (NEGATIVE); UROBILINOGEN,URINE NORMAL MG/DL (0.0-1.0)
--- NOTE | 2018-06-03 16:42 | General Progress Note ---
Assessment/Plan Assessment/Plan Assessment and Recs: # Anemia of chronic disease due to underlying chronic medical issues, multifactorial --> Anemia workup has been ordered, rule out gi bleed, it has been reviewed --> No evidence of hemolysis is noted, peripheral smear has been reviewed. --> Hgb goal >7. Transfuse prn. --> Epogen or iron at this time is not particularly indicated --> Medications have been reviewed --> evaluate with Gi team prn --> hgb7.6-->8.3-->7.8-->8,5-->8.9 # Leukocytosis/Elevated white blood cell count, unspecified likely related to underlying stress reaction, smoking v more likely infection (PNA) --> have reviewed peripheral smear and bandemia/neutrophilia noted --> continue antibiotics if they have been started by ID team --> monitor for resolution, 19k-->13k-->10k-->8k # Acute on chronic respiratory failure --> on abx as per id --> pulm//cc on the case for management as well # Nosocomial pneumonia --> s/p abx treatment # Severe sepsis w/ pna --> on abx # Cerebrovascular accident (CVA) --> asa and statin # Vegetative state # Contracture of joint of multiple sites The timing of this note does not necessarily reflect the time of the patient was seen. Greatly appreciate consultation! Subjective Constitutional: Denies: no symptoms, chills, diaphoresis, fever, malaise, weakness, other HEENT: Denies: no symptoms, eye pain, blurred vision, tearing, double vision, ear pain, ear discharge, nose pain, nose congestion, throat pain, throat swelling, mouth pain, mouth swelling, other Gastrointestinal/Abdominal: Denies: no symptoms, abdomen distended, abdominal pain, black stools, tarry stools, blood in stool, constipated, diarrhea, difficulty swallowing, nausea, poor appetite, poor fluid intake, rectal bleeding , vomiting, other Genitourinary: Denies: no symptoms, burning, discharge, frequency, flank pain, hematuria, incontinence, pain, urgency, other Neurologic/Psychiatric: Denies: no symptoms, anxiety, depressed, emotional problems, headache, numbness, paresthesia, pre-existing deficit, seizure, tingling, tremors, weakness, other Endocrine: Denies: no symptoms, excessive sweating, flushing, intolerance to cold, intolerance to heat, increased hunger, increased thirst, increased urine, unexplained weight gain, unexplained weight loss, other Allergies: Coded Allergies: No Known Allergies (Unverified , 05/27/18) Subjective 05/29: midline was leaking better, now in better position, no complaints 05/31: no major duress, hgb 8.3, no bleeding reported 06/01: remains obtunded, no night sweats, seen by endo 06/02: no events to report, is bradycardic, asymptomatic 06/03: abx have been changed to toni, vanc, diflucan Objective Last 24 Hour Vital Signs Date Time Temp Pulse Resp B/P (MAP) Pulse Ox O2 Delivery O2 Flow Rate FiO2 06/03/18 16:00 Mechanical Ventilator 06/03/18 16:00 99.8 18 137/67 (90) 98 06/03/18 16:00 40 06/03/18 16:00 62 06/03/18 14:42 68 22 40 06/03/18 13:17 63 18 40 06/03/18 13:03 99.9 161/85 (110) 06/03/18 12:59 99.9 06/03/18 12:29 176/87 06/03/18 12:00 101.5 85 20 176/87 (116) 98 06/03/18 12:00 Mechanical Ventilator 06/03/18 12:00 40 06/03/18 12:00 75 06/03/18 10:55 83 21 40 06/03/18 09:06 59 16 40 06/03/18 08:00 98.2 61 18 156/73 (100) 97 06/03/18 08:00 Mechanical Ventilator 06/03/18 08:00 89 06/03/18 08:00 40 06/03/18 06:55 58 18 40 06/03/18 05:44 54 24 Mechanical Ventilator 40 06/03/18 05:20 54 24 40 06/03/18 04:00 40 06/03/18 04:00 99.1 75 20 164/81 (108) 99 06/03/18 04:00 Mechanical Ventilator 06/03/18 03:45 57 06/03/18 03:06 69 24 40 06/03/18 01:25 70 24 40 06/03/18 00:00 99.1 51 18 157/77 (103) 99 06/03/18 00:00 Mechanical Ventilator 06/02/18 23:30 47 06/02/18 23:06 46 14 40 06/02/18 21:19 155/78 06/02/18 21:14 64 23 40 06/02/18 20:00 40 06/02/18 20:00 98.2 56 20 155/78 (103) 98 06/02/18 20:00 Mechanical Ventilator 06/02/18 19:29 46 18 40 06/02/18 19:09 47 06/02/18 17:21 165/71 06/02/18 17:06 54 22 40 Intake and Output 06/02/18 06/03/18 19:00 07:00 Intake Total 1544.163 ml 1210.500 ml Output Total 3850 ml 2000 ml Balance -2305.837 ml -789.500 ml Intake Oral 0 ml Free Water 75 ml 80 ml IV Total 504.163 ml 350.500 ml Tube Feeding 965 ml 780 ml Output Urine Total 1850 ml 2000 ml Other 2000 ml # Bowel Movements 5 2 Laboratory Tests 06/03/18 04:20: White Blood Count 8.1, Red Blood Count 3.67L, Hemoglobin 8.9L, Hematocrit 28.4L , Mean Corpuscular Volume 77L, Mean Corpuscular Hemoglobin 24.2L, Mean Corpuscular Hemoglobin Concent 31.4L, Red Cell Distribution Width 19.2H, Platelet Count 319, Mean Platelet Volume 7.8, Neutrophils (%) (Auto) 70.4, Lymphocytes (%) (Auto) 18.6L, Monocytes (%) (Auto) 8.3, Eosinophils (%) (Auto) 1.9, Basophils (%) (Auto) 0.8, Sodium Level 146H, Potassium Level 3.5, Chloride Level 111H, Carbon Dioxide Level 29, Anion Gap 6, Blood Urea Nitrogen 9, Creatinine 0.8, Estimat Glomerular Filtration Rate > 60, Glucose Level 215H, Calcium Level 8.4L, Total Bilirubin 0.2, Aspartate Amino Transf (AST/SGOT) 14L, Alanine Aminotransferase (ALT/SGPT) 15, Alkaline Phosphatase 68, Pro-B-Type Natriuretic Peptide 3408H, Total Protein 6.5, Albumin 1.6L, Globulin 4.9, Albumin/Globulin Ratio 0.3L 06/03/18 15:45: Urine Color Pale yellow, Urine Appearance Clear, Urine pH 6.5, Urine Specific [place] 1.010, Urine Protein 2+H, Urine Glucose (UA) Negative, Urine Ketones Negative, Urine Blood 2+H, Urine Nitrite Negative, Urine Bilirubin Negative, Urine Urobilinogen Normal, Urine Leukocyte Esterase 2+H, Urine RBC 2-4H, Urine WBC 2-4, Urine Squamous Epithelial Cells None, Urine Bacteria Few, Urine Yeast ModerateH Height (Feet): 5 Height (Inches): 6.00 Weight (Pounds): 217 Objective PE: Vitals: reviewed, stable General Appearance: NAD, vegetative state HEENT: normocephalic, atraumatic Neck: non-tender, normal alignment Respiratory/Chest: crackles b/l noted, ++ trach/vent Cardiovascular/Chest: normal peripheral pulses, normal rate Abdomen: normal bowel sounds, soft, nontender ++ peg Extremities: normal range of motion Trey Tripathi MD Jun 03, 2018 16:42
--- NOTE | 2018-06-03 19:16 | NUR ---
HAND-OFF: Report given to staci love.
--- NOTE | 2018-06-03 19:16 | NUR ---
NURSE NOTES: Received patient from Cinthia VINCENT. Patient is obtunded and not alert. Patient is receiving oxygen via Portex 7 settings AC 10, TV 500, FiO2 40%, PEEP 5. Patient's G-tube is patent and intact receiving Glucerna 1.2 at 65cc/hr. Condom catheter is intact and draining. IV site is Left upper PICC arm intact and asymptomatic. Bed is locked, placed in lowest position, side rails up x3, side rails padded. Will continue to monitor.
[2018-06-03] MEDS: Dyna-Hex 2% Top Sol 2oz TOPIC SCH (20:09)
[2018-06-03] MEDS: Vancomycin 750 MG in NS 275 ML IVPB SCH (20:10)
[2018-06-03] MEDS: Lisinopril 20mg tab GT SCH (20:59)
[2018-06-03] MEDS: LORazepam Inj 2mg/ml 1ml IV PRN (21:44)
[2018-06-04] VITALS: BP 165/78
[2018-06-04] MEDS ORDERED: Isovue-370 150ml vial INJ PRN (00:15)
[2018-06-04] MEDS: NovoLOG Insulin Flexpen SUBQ SCH ×8 (00:26→17:52)
--- NOTE | 2018-06-04 01:00 | Progress Note ---
DATE: 06/02/2018 NOTE: POOR AUDIO SUBJECTIVE: The patient is awake and alert, afebrile. He is hemodynamically stable. His eyes are open, but there is no eye contact. PHYSICAL EXAMINATION: VITAL SIGNS: Blood pressure 155/78, pulse is 46, respirations of 14, temperature 98.2. EYES: Normal. ENT, mucous membranes were moist and intact. NECK: Supple with no JVD without lymph nodes. Tracheostomy site is clean. LUNGS: Clear without rhonchi, rales, or wheezing. Secretions are small, thin and potts. HEART: Normal sounds with regular beats. He has bradycardia. ABDOMEN: Soft and nontender with normal bowel sounds. Gastrostomy site is clean. EXTREMITIES: Warm without cyanosis, clubbing, or edema. LABORATORY DATA: The patient underwent multiple laboratory tests today. CBC, hemoglobin is 8.5, hematocrit , WBC of 8.2, and platelets are 287. His BUN and creatinine is 10 and 0.7 respectively. His sodium is 141, potassium 3.1, chloride 108, CO2 is 28. SGOT, SGPT, and alkaline phosphatase are normal. His albumin is 1.4, and total protein is 5.9. The patient had 2 procedures today. IMPRESSION: 1. The patient underwent pleural tap by Radiology and 1000 mL of serosanguineous fluid has been removed, procedure was uneventful. The patient tolerated the procedure well. 2. The patient had CT scan of the abdomen and pelvis with oral and intravenous contrast. The main finding is small right pleural effusion. Mild cardiomegaly, atelectasis bilaterally, cholelithiasis. subcutaneous fat. 3. Spondylolisthesis of L1, L2 and L5, S1, T6 compression fracture. 4. Multiple sclerosis in both kidneys and may require any surgical intervention. Clinically, the patient does not appear to be in congestive heart failure. pulmonary congestion or peripheral edema. The patient has been now afebrile without leukocytosis for several days. He is to return back to the extended care facility subacute unit. He will be discharged in a.m. to [facility]. Janette Weaver M.D. DR: FREDDY JOB#: [id number] CC:
--- NOTE | 2018-06-04 03:30 | Consultation ---
DATE OF CONSULTATION: 06/02/2018 CARDIOLOGY CONSULTATION CONSULTING PHYSICIAN: Otto Condon M.D. REQUESTING PHYSICIAN: Janette Weaver M.D. REASON FOR CONSULTATION: Bradycardia. HISTORY OF PRESENT ILLNESS: This is a 77-year-old male with multiple medical problems, who is ventilator dependent and noncommunicative. He was admitted to the hospital on 05/27/2018 with fevers due to sepsis. The patient was noted to have Staphylococcus aureus bacteremia presumably due to a PICC line and has been treated with antibiotics. Concerns over endocarditis noted as well as concerns over persisting bradycardia. PAST MEDICAL HISTORY: Includes dysphagia with G-tube, ventilator-dependent respiratory failure with tracheostomy, cerebrovascular disease with prior cerebrovascular accident, hypertension, type 2 diabetes mellitus, hyperlipidemia, and obesity. MEDICATIONS: Reviewed and reconciled. ALLERGIES: None. SOCIAL HISTORY: Negative for smoking, alcohol, or substance abuse. REVIEW OF SYSTEMS: Not obtainable from the patient. PHYSICAL EXAM: VITAL SIGNS: Blood pressure 173/74, heart rate ranging from 46 to 61, respiratory 16 to 23, and afebrile. NECK: Supple. Trach site with thin secretions. LUNGS: Coarse breath sounds. Few rales. CARDIAC: Regular rhythm. Slow rate. Normal S1, S2 with no murmur, rub, or gallop. ABDOMEN: Soft. G-tube intact. Some muscle atrophy noted, but no edema. DIAGNOSTIC DATA: EKG on admission revealed sinus rhythm at 85 beats per minute with no acute abnormalities. TSH is normal. Echocardiogram revealed normal ejection fraction and mild aortic mitral and tricuspid regurgitation with no elevated PA systolic pressure. IMPRESSION: 1. Autonomic dysfunction with associated sinus bradycardia presently of no hemodynamic significance. 2. Staphylococcus aureus bacteremia with sepsis, recovering. 3. Low likelihood for endocarditis although it cannot be entirely excluded. 4. Ventilator-dependent respiratory failure. 5. Hypertensive heart disease. PLAN: 1. No role for pacemaker. 2. The patient is not ambulatory and no additional cardiovascular interventions recommended. 3. Repeat blood cultures can be obtained and if positive then a transesophageal echocardiogram should be obtained to assess for valvular vegetations and endocarditis. Otto Condon M.D. DR: HAY JOB#: [id number] CC:
--- NOTE | 2018-06-04 03:45 | Progress Note ---
DATE: 06/03/2018 CARDIOLOGY PROGRESS NOTE SUBJECTIVE: The patient is awake and alert on ventilator support. Monitored rhythm, sinus bradycardia. Blood pressure parameters remained quite stable. OBJECTIVE: VITAL SIGNS: Blood pressure 150/78, pulse 46, and respirations 14. LUNGS: Thin trach secretions. Few rhonchi. No wheezing. HEART: Regular rhythm. Slow rate. Normal S1, S2 with a 1/6 systolic apical murmur. ABDOMEN: Soft with no focal tenderness. There is no edema. G-tube site intact. LABORATORY DATA: Potassium 3.1, albumin 1.4, bicarbonate is 28, BUN is 10, and creatinine 0.7. White count 8.2. IMPRESSION: 1. Pleural effusion status post thoracentesis. 2. Staphylococcus aureus bacteremia with new PICC line placed. 3. Low clinical suspicion for endocarditis. 4. Asymptomatic sinus bradycardia possibly due to autonomic dysfunction with no structural heart disease or hemodynamically significant bradyarrhythmias. PLAN: 1. Check surveillance blood cultures. If positive, consider transesophageal echocardiogram. 2. Medication regimen reviewed. 3. No agents are significantly contributing to bradycardia. 4. No indication for pacemaker. 5. Stable from cardiovascular standpoint for subacute level of care. Otto Condon M.D. DR: HAY JOB#: [id number] CC:
[2018-06-04 04:00] VITALS: BP 168/176
[2018-06-04 05:27] LABS: BASOPHILS % (AUTO) 0.8 % (0.0-2.0); EOSINOPHILS % (AUTO) 1.6 % (0.0-3.0); HEMATOCRIT 26.8 % (42.0-52.0); HEMOGLOBIN 8.4 G/DL (14.2-18.0); LYMPHOCYTES % (AUTO) 20.1 % (20.0-45.0); MEAN CORPUSCULAR VOLUME 78 FL (80-99); MONOCYTES % (AUTO) 10.3 % (1.0-10.0); NEUTROPHILS % (AUTO) 67.3 % (45.0-75.0); PLATELET COUNT 282 K/UL (150-450); RED BLOOD COUNT 3.44 M/UL (4.70-6.10); RED CELL DISTRIBUTION WIDTH 19.3 % (11.6-14.8); WHITE BLOOD COUNT 8.4 K/UL (4.8-10.8)
[2018-06-04 06:24] LABS: ALANINE AMINOTRANSFERASE 16 U/L (12-78); ALBUMIN 1.5 G/DL (3.4-5.0); ALBUMIN/GLOBULIN RATIO 0.3 (1.0-2.7); ALKALINE PHOSPHATASE 59 U/L (46-116); ANION GAP 7 mmol/L (5-15); ASPARTATE AMINO TRANSFERASE 14 U/L (15-37); BILIRUBIN,TOTAL 0.2 MG/DL (0.2-1.0); BLOOD UREA NITROGEN 9 mg/dL (7-18); CALCIUM 8.3 MG/DL (8.5-10.1); CARBON DIOXIDE 30 MMOL/L (21-32); CHLORIDE 110 MMOL/L (98-107); CREATININE 0.8 MG/DL (0.55-1.30); PHOSPHORUS 3.4 MG/DL (2.5-4.9); POTASSIUM 3.4 MMOL/L (3.5-5.1); SODIUM 147 MMOL/L (136-145)
--- NOTE | 2018-06-04 07:16 | NUR ---
HAND-OFF: Report given to Meenu Isidro RN. Patient showing no signs of distress.
--- NOTE | 2018-06-04 07:20 | NUR ---
NURSE NOTES: Report received from Kaur Mar RN.Pt resting quietly in bed,noted no resp distress,with trach tube to vent ,on current settings tolerating well,no signs of pain or discomfort,S-Don on the monitor,GTF Glucerna 1.2 at 65ml/hr ,no residual noted,condom cath in placed drianing yellow urine,IV site to ANGELES PICC line intact ,skin warm and dry,SR up x2 HOB elevated,bed lock in lowest position,will continue with plans of care.
[2018-06-04 08:00] VITALS: BP 169/82
[2018-06-04] MEDS ORDERED: Sodium Chloride for KCL Premix X 4hrs IV SCH (08:00)
[2018-06-04] MEDS: Vancomycin 750 MG in NS 275 ML IVPB SCH ×2 (08:27→20:25)
[2018-06-04] MEDS: levETIRAcetam 500mg/5ml Liquid GT SCH ×2 (09:19→17:34)
[2018-06-04] MEDS: Heparin 5000 units/ml inj SUBQ SCH ×2 (09:21→21:10)
--- NOTE | 2018-06-04 10:00 | NUR ---
NURSE NOTES: Oral care done,suctioned orally and per trache tube,to large amount of thin whitish secretions.
--- NOTE | 2018-06-04 10:50 | Pulmonolgy Critical Care Note ---
Critical Care - Asmt/Plan Problems: (1) Acute on chronic respiratory failure (2) Sepsis (3) Nosocomial pneumonia (4) Severe sepsis (5) Pneumonia (6) Vegetative state (7) Contracture of joint of multiple sites (8) Chronic respiratory failure (9) Diabetes mellitus (10) Cerebrovascular accident (CVA) Respiratory: monitor respiratory rate, adjust FIO2, CXR Cardiac: continue to monitor HR/BP Renal: F/U I&O Infectious Disease: check cultures, continue antibiotics, other - PICC line at right upper arm since Gastrointestinal: continue feedings/current rate Endocrine: monitor blood sugar, check TSH, check HgA1C Hematologic: monitor H/H, transfuse if hgb<8.5 Neurologic: PRN Ativan, keep patient comfortable Affect: PRN ativan Prophylaxis: Protonix, Heparin Notes Reviewed: garnett room worker, renal Discussed with: nurses, case aidelift manager - Objective Last 24 Hour Vital Signs Date Time Temp Pulse Resp B/P (MAP) Pulse Ox O2 Delivery O2 Flow Rate FiO2 06/04/18 10:41 57 15 40 06/04/18 09:00 54 06/04/18 08:52 58 16 40 06/04/18 08:00 98.4 65 21 169/82 (111) 98 06/04/18 08:00 Mechanical Ventilator 06/04/18 08:00 40 06/04/18 06:51 60 20 40 06/04/18 05:22 56 24 40 06/04/18 04:10 56 06/04/18 04:00 98.2 65 21 168/176 (173) 98 06/04/18 04:00 Mechanical Ventilator 06/04/18 04:00 40 06/04/18 02:50 59 16 40 06/04/18 01:03 58 14 40 06/04/18 00:29 165/78 06/04/18 00:00 Mechanical Ventilator 06/04/18 00:00 98.2 60 20 165/78 (107) 100 06/03/18 23:27 53 06/03/18 22:50 55 12 40 06/03/18 21:23 69 19 40 06/03/18 20:59 192/86 06/03/18 20:00 Mechanical Ventilator 06/03/18 20:00 99.1 56 17 160/85 (110) 97 06/03/18 20:00 40 06/03/18 19:32 64 06/03/18 18:57 50 18 40 06/03/18 16:51 73 23 40 06/03/18 16:00 Mechanical Ventilator 06/03/18 16:00 99.8 18 137/67 (90) 98 06/03/18 16:00 40 06/03/18 16:00 62 06/03/18 14:42 68 22 40 06/03/18 13:17 63 18 40 06/03/18 13:03 99.9 161/85 (110) 06/03/18 12:59 99.9 06/03/18 12:29 176/87 06/03/18 12:00 101.5 85 20 176/87 (116) 98 06/03/18 12:00 Mechanical Ventilator 06/03/18 12:00 40 06/03/18 12:00 75 06/03/18 10:55 83 21 40 Status: awake Condition: critical HEENT: atraumatic Lungs: clear, chest wall tender Heart: HR/BP stable Abdomen: non-tender, feeding tube Extremities: no C/C/E Decubiti: location, stage Micro: Microbiology Date/Time Source Procedure Growth Status 06/02/18 03:45 Blood Blood Culture - Preliminary NO GROWTH AFTER 48 HOURS Resulted 06/02/18 03:40 Blood Blood Culture - Preliminary NO GROWTH AFTER 48 HOURS Resulted 06/02/18 15:00 Pleural Fluid Gram Stain - Final Resulted 06/02/18 15:00 Pleural Fluid Body Fluid Culture - Preliminary NO GROWTH AFTER 24 HOURS Resulted 06/03/18 15:45 Sputum Induced Gram Stain Pending Resulted 06/03/18 15:45 Sputum Culture - Preliminary Gram Negative Bacillus 1 Resulted 06/03/18 15:45 External Cath Urine Culture - Preliminary Resulted Accucheck: 190 Critical Care - Subjective ROS Limited/Unobtainable: Yes Interval Events: had a fever of 101 yesterday. FI02: 40 Vent Support Breath Rate: 10 Vent Support Mode: AC Vent Tidal Volume: 500 Sputum Amount: Small PEEP: 5.0 PIP: 28 Tube Feeding Amount: 65 I&O: Intake and Output 06/03/18 06/04/18 19:00 07:00 Intake Total 1665.000 ml 1355 ml Output Total 1750 ml 2400 ml Balance -85.000 ml -1045 ml Free Water 300 ml 100 ml IV Total 585.000 ml 475 ml Tube Feeding 780 ml 780 ml Output Urine Total 1750 ml 1800 ml Emesis 600 ml # Bowel Movements 4 CXR: no change Labs: Laboratory Tests Test 06/03/18 15:45 06/04/18 03:45 Urine Color Pale yellow Urine Appearance Clear Urine pH 6.5 (4.5-8.0) Urine Specific [place] 1.010 (1.005-1.035) Urine Protein 2+ (NEGATIVE) H Urine Glucose (UA) Negative (NEGATIVE) Urine Ketones Negative (NEGATIVE) Urine Blood 2+ (NEGATIVE) H Urine Nitrite Negative (NEGATIVE) Urine Bilirubin Negative (NEGATIVE) Urine Urobilinogen Normal MG/DL (0.0-1.0) Urine Leukocyte Esterase 2+ (NEGATIVE) H Urine RBC 2-4 /HPF (0 - 0) H Urine WBC 2-4 /HPF (0 - 0) Urine Squamous Epithelial Cells None /LPF (NONE/OCC) Urine Bacteria Few /HPF (NONE) Urine Yeast Moderate /HPF (NONE) H White Blood Count 8.4 K/UL (4.8-10.8) Red Blood Count 3.44 M/UL (4.70-6.10) L Hemoglobin 8.4 G/DL (14.2-18.0) L Hematocrit 26.8 % (42.0-52.0) L Mean Corpuscular Volume 78 FL (80-99) L Mean Corpuscular Hemoglobin 24.4 PG (27.0-31.0) L Mean Corpuscular Hemoglobin Concent 31.4 G/DL (32.0-36.0) L Red Cell Distribution Width 19.3 % (11.6-14.8) H Platelet Count 282 K/UL (150-450) Mean Platelet Volume 7.6 FL (6.5-10.1) Neutrophils (%) (Auto) 67.3 % (45.0-75.0) Lymphocytes (%) (Auto) 20.1 % (20.0-45.0) Monocytes (%) (Auto) 10.3 % (1.0-10.0) H Eosinophils (%) (Auto) 1.6 % (0.0-3.0) Basophils (%) (Auto) 0.8 % (0.0-2.0) Sodium Level 147 MMOL/L (136-145) H Potassium Level 3.4 MMOL/L (3.5-5.1) L Chloride Level 110 MMOL/L (98-107) H Carbon Dioxide Level 30 MMOL/L (21-32) Anion Gap 7 mmol/L (5-15) Blood Urea Nitrogen 9 mg/dL (7-18) Creatinine 0.8 MG/DL (0.55-1.30) Estimat Glomerular Filtration Rate > 60 mL/min (>60) Glucose Level 170 MG/DL (74-106) H Calcium Level 8.3 MG/DL (8.5-10.1) L Phosphorus Level 3.4 MG/DL (2.5-4.9) Magnesium Level 2.0 MG/DL (1.8-2.4) Total Bilirubin 0.2 MG/DL (0.2-1.0) Aspartate Amino Transf (AST/SGOT) 14 U/L (15-37) L Alanine Aminotransferase (ALT/SGPT) 16 U/L (12-78) Alkaline Phosphatase 59 U/L (46-116) Total Protein 6.2 G/DL (6.4-8.2) L Albumin 1.5 G/DL (3.4-5.0) L Globulin 4.7 g/dL Albumin/Globulin Ratio 0.3 (1.0-2.7) L Yomi Odom MD Jun 04, 2018 10:49
[2018-06-04 12:00] VITALS: BP 157/78
--- NOTE | 2018-06-04 12:00 | Progress Note ---
DATE: 06/03/2018 NOTE: POOR AUDIO SUBJECTIVE: The patient's eyes are respond to tactile stimuli only. He spiked fever today to 101 and seizure that lasted 1 minute. PHYSICAL EXAMINATION: VITAL SIGNS: Blood pressure is 160/85, his pulse is 64, respirations 17, and temperature 99.1. HEENT: Eyes were normal. ENT, mucous membranes were moist and intact. NECK: Supple with no JVD without lymph nodes. Tracheostomy site is clean. LUNGS: Clear without rhonchi, rales, or wheezing. Secretions are small, thin, and potts. HEART: Normal sounds with regular beats. No S3, S4, or pericardial rub. ABDOMEN: Soft and nontender with normal bowel sounds. Gastrostomy site is clean. EXTREMITIES: Warm without cyanosis, clubbing, or edema. LABORATORY AND DIAGNOSTIC DATA: His hemoglobin is 8.9, hematocrit 28.4 with MCV of 77, WBC of 8.1, and platelet is 319. His BUN and creatinine is 9 and 0.8 respectively. His sodium is 146, potassium 3.5, chloride 111, CO2 is 29. His is 8.4. SGOT, SGPT, and alkaline phosphatase are normal. His ProBNP is . Albumin is and total protein is 6.5. IMPRESSION: The patient was supposed to be discharged today. He spiked fever to 101.6 and . PLAN: Discharge plan was canceled. CBC, BMP, UA, chest x-ray, and EKG in the a.m. Repeat laboratory tests will be done in the a.m. Janette Weaver M.D. DR: CLAUDINE JOB#: [id number] CC:
--- NOTE | 2018-06-04 12:14 | NUR ---
NURSE NOTES: Pt stable,no seizure activity noted,turned and repositoned.
--- NOTE | 2018-06-04 14:31 | NUR ---
RD ASSESSMENT & RECOMMENDATIONS SEE CARE ACTIVITY FOR COMPLETE ASSESSMENT DAILY ESTIMATED NEEDS: Needs based on DM, wound, critical care 68.6kg adj 22-30 kcals/kg 4035-8109 total kcals 1.25-2 g protein/kg 86-137 g total protein 25-30 mL/kg 6906-8492 total fluid mLs NUTRITION DIAGNOSIS: 1) Swallowing difficulty r/t respiratory status as evidenced by pt is vent dep via trach, on GT feeds 2) Altered nutrition related lab values r/t diabetes as evidenced by elev Uglu on adm (4+), elev BG (200's-400's -> 170 285 improved) and elev accu checks (200's-300's-> 148-257 improved). 3) Increased kcal and pro needs r/t wound healing as evidenced by pt w/ multiple DTPI's and partial thickness wounds. CURRENT TF: Glucerna 1.2 @65ml/hr x20 hrs ENTERAL NUTRITION RECOMMENDATIONS: Glucerna 1.2 @55ml x24 hrs + Prosource x1 pack daily to provide 1320ml, 1584 kcal, 79g + 11g pro, 1063ml free H2O - REC TO INCREASE RUN TIME AND DECREASE TF RATE as above - Add prosource 1 pack daily to better meet est pro needs - HOB over 30 degrees - Increase water flushes (Na trending up) ADDITIONAL RECOMMENDATIONS: 1) Monitor BGs closely- improving at this time -> consider long acting insulin 2) Calibrated bed scale wts 3) Wound care: PIPE BID + VIT C 250mg daily 4) Monitor lytes daily, replete as needed (low K) 5) Increase water flushes-> Na trending back up
[2018-06-04 16:00] VITALS: BP 141/76
--- NOTE | 2018-06-04 17:15 | General Progress Note ---
Assessment/Plan Assessment/Plan Assessment and Recs: # Anemia of chronic disease due to underlying chronic medical issues, multifactorial --> Anemia workup has been ordered, rule out gi bleed, it has been reviewed --> No evidence of hemolysis is noted, peripheral smear has been reviewed. --> Hgb goal >7. Transfuse prn. --> Epogen or iron at this time is not particularly indicated --> Medications have been reviewed --> evaluate with Gi team prn --> hgb7.6-->8.3-->7.8-->8,5-->8.9 # Leukocytosis/Elevated white blood cell count, unspecified likely related to underlying stress reaction, smoking v more likely infection (PNA) --> have reviewed peripheral smear and bandemia/neutrophilia noted --> continue antibiotics if they have been started by ID team --> monitor for resolution, 19k-->13k-->10k-->8k # Acute on chronic respiratory failure --> on abx as per id --> pulm//cc on the case for management as well # Nosocomial pneumonia --> s/p abx treatment # Severe sepsis w/ pna --> on abx # Cerebrovascular accident (CVA) --> asa and statin # Vegetative state # Contracture of joint of multiple sites The timing of this note does not necessarily reflect the time of the patient was seen. Greatly appreciate consultation! Subjective Constitutional: Denies: no symptoms, chills, diaphoresis, fever, malaise, weakness, other HEENT: Denies: no symptoms, eye pain, blurred vision, tearing, double vision, ear pain, ear discharge, nose pain, nose congestion, throat pain, throat swelling, mouth pain, mouth swelling, other Cardiovascular: Denies: no symptoms, chest pain, edema, irregular heart rate, lightheadedness, palpitations, syncope, other Neurologic/Psychiatric: Denies: no symptoms, anxiety, depressed, emotional problems, headache, numbness, paresthesia, pre-existing deficit, seizure, tingling, tremors, weakness, other Endocrine: Denies: no symptoms, excessive sweating, flushing, intolerance to cold, intolerance to heat, increased hunger, increased thirst, increased urine, unexplained weight gain, unexplained weight loss, other Allergies: Coded Allergies: No Known Allergies (Unverified , 05/27/18) Subjective 05/29: midline was leaking better, now in better position, no complaints 05/31: no major duress, hgb 8.3, no bleeding reported 06/01: remains obtunded, no night sweats, seen by endo 06/02: no events to report, is bradycardic, asymptomatic 06/03: abx have been changed to toni, vanc, diflucan 06/04: is on vanc/toni/flucon, spiked yesterday, seenby id Objective Last 24 Hour Vital Signs Date Time Temp Pulse Resp B/P (MAP) Pulse Ox O2 Delivery O2 Flow Rate FiO2 06/04/18 14:39 75 27 40 06/04/18 12:35 55 15 40 06/04/18 12:00 40 06/04/18 12:00 58 06/04/18 12:00 98.1 65 21 157/78 (104) 98 06/04/18 12:00 Mechanical Ventilator 06/04/18 11:26 169/82 06/04/18 10:41 57 15 40 06/04/18 09:00 54 06/04/18 08:52 58 16 40 06/04/18 08:00 98.4 65 21 169/82 (111) 98 06/04/18 08:00 Mechanical Ventilator 06/04/18 08:00 40 06/04/18 06:51 60 20 40 06/04/18 05:22 56 24 40 06/04/18 04:10 56 06/04/18 04:00 98.2 65 21 168/176 (173) 98 06/04/18 04:00 Mechanical Ventilator 06/04/18 04:00 40 06/04/18 02:50 59 16 40 06/04/18 01:03 58 14 40 06/04/18 00:29 165/78 06/04/18 00:00 Mechanical Ventilator 06/04/18 00:00 98.2 60 20 165/78 (107) 100 06/03/18 23:27 53 06/03/18 22:50 55 12 40 06/03/18 21:23 69 19 40 06/03/18 20:59 192/86 06/03/18 20:00 Mechanical Ventilator 06/03/18 20:00 99.1 56 17 160/85 (110) 97 06/03/18 20:00 40 06/03/18 19:32 64 06/03/18 18:57 50 18 40 Intake and Output 06/03/18 06/04/18 19:00 07:00 Intake Total 1665.000 ml 1355 ml Output Total 1750 ml 2400 ml Balance -85.000 ml -1045 ml Free Water 300 ml 100 ml IV Total 585.000 ml 475 ml Tube Feeding 780 ml 780 ml Output Urine Total 1750 ml 1800 ml Emesis 600 ml # Bowel Movements 4 Laboratory Tests 06/04/18 03:45: White Blood Count 8.4, Red Blood Count 3.44L, Hemoglobin 8.4L, Hematocrit 26.8L , Mean Corpuscular Volume 78L, Mean Corpuscular Hemoglobin 24.4L, Mean Corpuscular Hemoglobin Concent 31.4L, Red Cell Distribution Width 19.3H, Platelet Count 282, Mean Platelet Volume 7.6, Neutrophils (%) (Auto) 67.3, Lymphocytes (%) (Auto) 20.1, Monocytes (%) (Auto) 10.3H, Eosinophils (%) (Auto) 1.6, Basophils (%) (Auto) 0.8, Sodium Level 147H, Potassium Level 3.4L, Chloride Level 110H, Carbon Dioxide Level 30, Anion Gap 7, Blood Urea Nitrogen 9 , Creatinine 0.8, Estimat Glomerular Filtration Rate > 60, Glucose Level 170H, Calcium Level 8.3L, Phosphorus Level 3.4, Magnesium Level 2.0, Total Bilirubin 0.2, Aspartate Amino Transf (AST/SGOT) 14L, Alanine Aminotransferase (ALT/SGPT) 16, Alkaline Phosphatase 59, Total Protein 6.2L, Albumin 1.5L, Globulin 4.7, Albumin/Globulin Ratio 0.3L Height (Feet): 5 Height (Inches): 6.00 Weight (Pounds): 217 Objective PE: Vitals: reviewed, stable General Appearance: NAD, vegetative state HEENT: normocephalic, atraumatic Neck: non-tender, normal alignment Respiratory/Chest: crackles b/l noted, ++ trach/vent Cardiovascular/Chest: normal peripheral pulses, normal rate Abdomen: normal bowel sounds, soft, nontender ++ peg Extremities: normal range of motion Trey Tripathi MD Jun 04, 2018 17:15
--- NOTE | 2018-06-04 17:17 | NUR ---
NURSE NOTES: Bed bath given,pt with diarrhea like stools brown color, large amount.
--- NOTE | 2018-06-04 19:18 | NUR ---
HAND-OFF: Report given to Kaur Mar RN..no seizure activity presented during the shift.
--- NOTE | 2018-06-04 19:30 | NUR ---
NURSE NOTES: Received patient from Meenu Isidro RN. Patient is asleep. Receiving oxygen via Portex 7 with settings AC 10, TV 500, FiO2 40%, and PEEP 5. Patient is receiving Glucerna 1.2 at 65cc/hr and is tolerating well with no residuals. Urine is drained via Condom Catheter that is intact and draining. IV site is left upper arm PICC that is patent and asymptomatic. Bed is locked, placed in lowest position, side rails up x3, side rails padded. Will continue to monitor.
[2018-06-04] MEDS ORDERED: Tubing IV Secondary IV ONE (19:46)
[2018-06-04] MEDS ORDERED: Tubing Blood Filter IV ONE (19:46)
[2018-06-04] MEDS ORDERED: NS 275ml ONE (19:46)
[2018-06-04 20:00] VITALS: BP 145/76
[2018-06-04] MEDS: Dyna-Hex 2% Top Sol 2oz TOPIC SCH (20:23)
--- NOTE | 2018-06-04 21:00 | Progress Note ---
DATE: 06/04/2018 SUBJECTIVE: The patient now is afebrile. No other seizure episode episode he had yesterday. PHYSICAL EXAMINATION: VITAL SIGNS: Blood pressure is 157/78, pulse is 65, respirations 15, temperature 98.1. EYES: Normal. ENT, mucous membranes were moist and intact. NECK: Supple with no JVD without lymph nodes. Tracheostomy site is clean. LUNGS: Clear without rhonchi, rales, or wheezing. Secretions are small, thin and potts. HEART: Normal sounds with regular beats. There is no S3, S4, or pericardial rub. ABDOMEN: Soft and nontender with normal bowel sounds. Gastrostomy site is clean. EXTREMITIES: Warm without cyanosis, clubbing, or edema. LABORATORY DATA: Hemoglobin is 8.4, hematocrit 26.8 with MCV of of 78, WBC 8.5, and platelet count 283. His BUN and creatinine are 9 and 0.8 respectively. His sodium is 147, potassium 3.4, chloride 110, CO2 was 30. Calcium is 8.3. His phosphorus is 3.4, magnesium is 2. SGOT, SGPT, and alkaline phosphatase are normal. Albumin is 1.5 and total protein is 6.2. Chest x-ray shows no change in the pleural fluid and the infiltrate on the left, right side is clear. IMPRESSION: The patient again appeared to be in stable condition. He is afebrile and hemodynamically stable without leukocytosis or tachycardia. Even his heart rate has improved . Repeat laboratory tests and chest x-ray will be done in the a.m. The patient is ready to be discharged, will be taken place on 06/05/2018. Janette Weaver M.D. DR: Padmini JOB#: [id number] CC:
[2018-06-04] MEDS: Lisinopril 20mg tab GT SCH (21:09)
[2018-06-05] VITALS: BP 174/78
[2018-06-05] MEDS: NovoLOG Insulin Flexpen SUBQ SCH ×10 (00:38→23:33)
--- NOTE | 2018-06-05 03:15 | Progress Note ---
DATE: 06/04/2018 CARDIOLOGY PROGRESS NOTE SUBJECTIVE: The patient had a fever episode yesterday. No recurrent fevers today. No shortness of breath. OBJECTIVE: VITAL SIGNS: Blood pressure 157/78, pulse 65, and respiratory rate 15. HEENT: Oropharynx clear. NECK: Supple. LUNGS: Clear. CARDIAC: Regular. Normal S1, S2 with a fourth heart sound. ABDOMEN: Soft. G-tube intact. Clean and dry. EXTREMITIES: No edema. LABORATORY AND IMAGING DATA: Reviewed. IMPRESSION: 1. Asymptomatic sinus bradycardia likely due to autonomic dysfunction. 2. Microcytic anemia. 3. Dehydration. 4. Hypernatremia. 5. Severe protein-calorie malnutrition. PLAN: 1. No beta-blockers at this time. 2. No role for permanent pacemaker at this time. 3. Maintain adequate hydration. 4. Follow up chemistry panel following hypotonic fluid hydration. Otto Condon M.D. DR: HAY JOB#: [id number] CC:
[2018-06-05 04:00] VITALS: BP 184/85
[2018-06-05 05:01] LABS: BASOPHILS % (AUTO) 1.1 % (0.0-2.0); EOSINOPHILS % (AUTO) 1.1 % (0.0-3.0); HEMATOCRIT 30.5 % (42.0-52.0); HEMOGLOBIN 9.4 G/DL (14.2-18.0); LYMPHOCYTES % (AUTO) 25.8 % (20.0-45.0); MEAN CORPUSCULAR VOLUME 79 FL (80-99); MONOCYTES % (AUTO) 6.5 % (1.0-10.0); NEUTROPHILS % (AUTO) 65.6 % (45.0-75.0); PLATELET COUNT 339 K/UL (150-450); RED BLOOD COUNT 3.86 M/UL (4.70-6.10); RED CELL DISTRIBUTION WIDTH 19.9 % (11.6-14.8); WHITE BLOOD COUNT 9.7 K/UL (4.8-10.8)
[2018-06-05 05:12] LABS: ALANINE AMINOTRANSFERASE 15 U/L (12-78); ALBUMIN 1.7 G/DL (3.4-5.0); ALBUMIN/GLOBULIN RATIO 0.3 (1.0-2.7); ALKALINE PHOSPHATASE 68 U/L (46-116); ANION GAP 6 mmol/L (5-15); ASPARTATE AMINO TRANSFERASE 15 U/L (15-37); BILIRUBIN,TOTAL 0.2 MG/DL (0.2-1.0); BLOOD UREA NITROGEN 10 mg/dL (7-18); CALCIUM 8.7 MG/DL (8.5-10.1); CARBON DIOXIDE 31 MMOL/L (21-32); CHLORIDE 106 MMOL/L (98-107); CREATININE 0.7 MG/DL (0.55-1.30); PHOSPHORUS 3.2 MG/DL (2.5-4.9); SODIUM 143 MMOL/L (136-145)
--- NOTE | 2018-06-05 06:47 | General Progress Note ---
Assessment/Plan Problem List: (1) Diabetes mellitus ICD Codes: E11.9 - Type 2 diabetes mellitus without complications SNOMED: 17247431 (2) Chronic respiratory failure ICD Codes: J96.10 - Chronic respiratory failure, unspecified whether with hypoxia or hypercapnia SNOMED: 41746205 (3) Contracture of joint of multiple sites ICD Codes: M24.50 - Contracture, unspecified joint SNOMED: 16126334, 711544444 (4) Pneumonia ICD Codes: J18.9 - Pneumonia, unspecified organism SNOMED: 667643288 (5) Severe sepsis ICD Codes: A41.9 - Sepsis, unspecified organism; R65.20 - Severe sepsis without septic shock SNOMED: 21899179 (6) Vegetative state ICD Codes: R40.3 - Persistent vegetative state SNOMED: 00382021 (7) Cerebrovascular accident (CVA) ICD Codes: I63.9 - Cerebral infarction, unspecified SNOMED: 466441818 (8) Sepsis ICD Codes: A41.9 - Sepsis, unspecified organism SNOMED: 89665174 Assessment/Plan continue Novolog 10 units every 6 hours continue NISS every 6 hours Subjective ROS Limited/Unobtainable: Yes Allergies: Coded Allergies: No Known Allergies (Unverified , 05/27/18) Subjective events noted Item Value Date Time Bedside Blood Glucose 197 mg/dl H 06/05/18 0600 Bedside Blood Glucose 193 mg/dl H 06/05/18 0039 Bedside Blood Glucose 183 mg/dl H 06/04/18 1754 Bedside Blood Glucose 148 mg/dl H 06/04/18 1208 Bedside Blood Glucose 190 mg/dl H 06/04/18 0605 Bedside Blood Glucose 257 mg/dl H 06/04/18 0028 Objective Last 24 Hour Vital Signs Date Time Temp Pulse Resp B/P (MAP) Pulse Ox O2 Delivery O2 Flow Rate FiO2 06/05/18 06:11 176/86 06/05/18 05:35 70 14 40 40 06/05/18 04:00 40 06/05/18 04:00 99.0 63 24 184/85 (118) 95 06/05/18 04:00 Mechanical Ventilator 06/05/18 04:00 75 06/05/18 03:08 69 18 40 40 06/05/18 01:25 75 22 40 40 06/05/18 00:00 99.4 63 24 174/78 (110) 95 06/05/18 00:00 Mechanical Ventilator 06/05/18 00:00 40 06/04/18 23:24 61 06/04/18 23:02 65 22 40 40 06/04/18 21:09 173/79 06/04/18 20:42 60 14 40 40 06/04/18 20:00 Mechanical Ventilator 06/04/18 20:00 99.2 58 17 145/76 (99) 96 06/04/18 20:00 40 06/04/18 19:07 55 16 40 40 06/04/18 19:01 64 06/04/18 17:11 62 18 40 06/04/18 16:00 61 06/04/18 16:00 40 06/04/18 16:00 99.0 85 20 141/76 (97) 97 06/04/18 16:00 Mechanical Ventilator 06/04/18 14:39 75 27 40 06/04/18 12:35 55 15 40 06/04/18 12:00 40 06/04/18 12:00 58 06/04/18 12:00 98.1 65 21 157/78 (104) 98 06/04/18 12:00 Mechanical Ventilator 06/04/18 11:26 169/82 06/04/18 10:41 57 15 40 06/04/18 09:00 54 06/04/18 08:52 58 16 40 06/04/18 08:00 98.4 65 21 169/82 (111) 98 06/04/18 08:00 Mechanical Ventilator 06/04/18 08:00 40 06/04/18 06:51 60 20 40 Intake and Output 06/04/18 06/05/18 18:59 06:59 Intake Total 680 ml 375 ml Output Total 1850 ml Balance -1170 ml 375 ml Free Water 100 ml IV Total 375 ml Tube Feeding 520 ml Other 60 ml Output Urine Total 1850 ml # Bowel Movements 2 Laboratory Tests 06/05/18 03:20: White Blood Count 9.7, Red Blood Count 3.86L, Hemoglobin 9.4L, Hematocrit 30.5L , Mean Corpuscular Volume 79L, Mean Corpuscular Hemoglobin 24.4L, Mean Corpuscular Hemoglobin Concent 30.9L, Red Cell Distribution Width 19.9H, Platelet Count 339, Mean Platelet Volume 7.6, Neutrophils (%) (Auto) 65.6, Lymphocytes (%) (Auto) 25.8, Monocytes (%) (Auto) 6.5, Eosinophils (%) (Auto) 1.1, Basophils (%) (Auto) 1.1, Sodium Level 143, Potassium Level 4.0, Chloride Level 106, Carbon Dioxide Level 31, Anion Gap 6, Blood Urea Nitrogen 10, Creatinine 0.7, Estimat Glomerular Filtration Rate > 60, Glucose Level 167H, Calcium Level 8.7, Phosphorus Level 3.2, Magnesium Level 2.0, Total Bilirubin 0.2, Aspartate Amino Transf (AST/SGOT) 15, Alanine Aminotransferase (ALT/SGPT) 15, Alkaline Phosphatase 68, Total Protein 7.1, Albumin 1.7L, Globulin 5.4, Albumin/Globulin Ratio 0.3L Height (Feet): 5 Height (Inches): 6.00 Weight (Pounds): 217 General Appearance: no apparent distress Neck: normal alignment Respiratory/Chest: decreased breath sounds Abdomen: normal bowel sounds Edema: 1+ Arm (L), 1+ Arm (R), 1+ Leg (L), 1+ Leg (R), 1+ Pedal (L), 1+ Pedal ( R), 1+ Generalized Objective Current Medications Medications (Trade) Dose Ordered Sig/Bhupinder Route PRN Reason Start Time Stop Time Status Last Admin Dose Admin Acetaminophen (Tylenol) 650 mg Q4H PRN GT fever 05/27/18 13:15 06/26/18 13:14 06/03/18 12:29 Chlorhexidine Gluconate (Jasmin-Hex 2%) 1 applic DAILY@1999 TOPIC 05/28/18 20:00 06/27/18 19:59 06/04/18 20:23 Clonidine HCl (Catapres Tab) 0.1 mg Q6H PRN GT For High Blood Pressure 06/01/18 16:30 07/01/18 16:29 06/05/18 06:11 Dextrose (Dextrose 50%) 25 ml Q30M PRN IV Hypoglycemia 05/30/18 08:15 06/29/18 08:14 Dextrose (Dextrose 50%) 50 ml Q30M PRN IV Hypoglycemia 05/30/18 08:15 06/29/18 08:14 Fluconazole/ Sodium Chloride 200 ml @ 200 mls/hr Q24H IV 06/03/18 16:30 06/10/18 16:29 06/04/18 17:34 Folic Acid (Folate) 1 mg DAILY GT 06/01/18 09:00 06/29/18 08:59 06/04/18 09:19 Heparin Sodium (Porcine) (Heparin 5000 units/ml) 5,000 units EVERY 12 HOURS SUBQ 05/27/18 21:00 06/26/18 20:59 06/04/18 21:10 Insulin Aspart (NovoLOG) EVERY 6 HOURS SUBQ 06/03/18 06:00 07/03/18 05:59 06/05/18 06:00 Insulin Aspart (NovoLOG) 10 units EVERY 6 HOURS SUBQ 06/03/18 06:00 07/03/18 05:59 06/05/18 06:00 Iopamidol (Isovue-300 100ml) 100 ml NOW PRN INJ Radiology Procedure 05/30/18 00:15 Iopamidol (Isovue-370 150ml) 150 ml NOW PRN INJ Radiology Procedure 06/04/18 00:15 06/06/18 00:02 Levetiracetam (Keppra) 1,000 mg BID GT 06/04/18 09:00 06/27/18 08:59 06/04/18 17:34 Lisinopril (Prinivil) 20 mg QHS GT 05/31/18 21:00 06/30/18 00:59 06/04/18 21:09 Lorazepam (Ativan 2mg/ml 1ml) 2 mg Q2H PRN IV For Seizures 06/03/18 21:33 06/10/18 21:32 06/03/18 21:44 Meropenem 1 gm/ Sodium Chloride 100 ml @ 200 mls/hr Q8HR IVPB 06/03/18 22:00 06/08/18 21:59 06/05/18 06:11 Vancomycin HCl (Vanco rx to dose) 1 ea DAILY PRN MISC Per rx protocol 06/03/18 15:15 07/03/18 15:14 Vancomycin HCl 750 mg/Sodium Chloride 275 ml @ 183.333 mls/hr Q12H IVPB 06/03/18 20:00 06/08/18 19:59 06/04/18 20:25 Ayan Gillespie MD Jun 05, 2018 06:47
--- NOTE | 2018-06-05 07:25 | NUR ---
NURSE NOTES: RECEIVED BED SIDE REPORT FROM [facility] OF [facility] . RECEIVED PT WITH HOB ELEVATED 45 DEGREE ,NON-VERBAL OBTUNDED TRACH TO VENT.PT TRACH PATENT ,RENDERED TRACH CARE AND ORAL HYGIENE,SX,D LG AMT OF TICK WHITE SECRETIONS. PT INCONTINENT OF URINE ,RENDERED TOTAL AM NSG CARE ,GIVEN B.B AND KEEPT CLEAN AND DRY POSSIBLE.PT REPOSITINED Q 2HRS TO PROVIDE COMFORT AND TO PREVENT FURTHER SKIN BREAK DOWN.FULL BODY ASSESSMENT DONE.NO ACUTE DISTRESS NOTED AT THIS TIME. WILL CONT TO MONITOR.
--- NOTE | 2018-06-05 07:51 | NUR ---
HAND-OFF: Report given to Ismael RN. Patient shows no signs of distress.
[2018-06-05 08:00] VITALS: BP 152/72
--- NOTE | 2018-06-05 09:27 | NUR ---
RADIOLOGY DEPT., CHEST X-RAY DONE.-P.DYE
[2018-06-05] MEDS: Vancomycin 750 MG in NS 275 ML IVPB SCH ×2 (10:02→20:38)
[2018-06-05] MEDS: levETIRAcetam 500mg/5ml Liquid GT SCH ×2 (10:02→17:53)
[2018-06-05] MEDS: Heparin 5000 units/ml inj SUBQ SCH ×2 (10:07→20:37)
--- NOTE | 2018-06-05 10:55 | Pulmonolgy Critical Care Note ---
Critical Care - Asmt/Plan Problems: (1) Acute on chronic respiratory failure (2) Sepsis (3) Nosocomial pneumonia (4) Severe sepsis (5) Pneumonia (6) Vegetative state (7) Contracture of joint of multiple sites (8) Chronic respiratory failure (9) Diabetes mellitus (10) Cerebrovascular accident (CVA) Respiratory: monitor respiratory rate, adjust FIO2, CXR Cardiac: continue pressors, continue to monitor HR/BP Renal: F/U I&O Infectious Disease: check cultures, continue antibiotics Gastrointestinal: hold feedings Endocrine: monitor blood sugar, check HgA1C Hematologic: transfuse if hgb<8.5 Neurologic: keep patient comfortable Affect: PRN ativan Prophylaxis: Heparin Time Spent (Minutes): 40 Notes Reviewed: cardio, renal Discussed with: consultants, nurse case managementmanager wound care - Objective Last 24 Hour Vital Signs Date Time Temp Pulse Resp B/P (MAP) Pulse Ox O2 Delivery O2 Flow Rate FiO2 06/05/18 09:00 57 17 40 40 06/05/18 08:00 98.4 55 20 152/72 (98) 98 06/05/18 06:48 60 15 40 40 06/05/18 06:11 176/86 06/05/18 05:35 70 14 40 40 06/05/18 04:00 40 06/05/18 04:00 99.0 63 24 184/85 (118) 95 06/05/18 04:00 Mechanical Ventilator 06/05/18 04:00 75 06/05/18 03:08 69 18 40 40 06/05/18 01:25 75 22 40 40 06/05/18 00:00 99.4 63 24 174/78 (110) 95 06/05/18 00:00 Mechanical Ventilator 06/05/18 00:00 40 06/04/18 23:24 61 06/04/18 23:02 65 22 40 40 06/04/18 21:09 173/79 06/04/18 20:42 60 14 40 40 06/04/18 20:00 Mechanical Ventilator 06/04/18 20:00 99.2 58 17 145/76 (99) 96 06/04/18 20:00 40 06/04/18 19:07 55 16 40 40 06/04/18 19:01 64 06/04/18 17:11 62 18 40 06/04/18 16:00 61 06/04/18 16:00 40 06/04/18 16:00 99.0 85 20 141/76 (97) 97 06/04/18 16:00 Mechanical Ventilator 06/04/18 14:39 75 27 40 06/04/18 12:35 55 15 40 06/04/18 12:00 40 06/04/18 12:00 58 06/04/18 12:00 98.1 65 21 157/78 (104) 98 06/04/18 12:00 Mechanical Ventilator 06/04/18 11:26 169/82 Status: awake Condition: critical HEENT: atraumatic Lungs: clear, chest wall tender Heart: HR/BP unstable Abdomen: non-tender, feeding tube Extremities: edema Decubiti: location Micro: Microbiology Date/Time Source Procedure Growth Status 06/03/18 16:45 Blood Blood Culture - Preliminary NO GROWTH AFTER 24 HOURS Resulted 06/03/18 16:30 Blood Blood Culture - Preliminary NO GROWTH AFTER 24 HOURS Resulted 06/02/18 15:00 Pleural Fluid Gram Stain - Final Resulted 06/02/18 15:00 Pleural Fluid Body Fluid Culture - Preliminary NO GROWTH AFTER 48 HOURS Resulted 06/03/18 15:45 Sputum Induced Gram Stain - Final Resulted 06/03/18 15:45 Sputum Culture - Preliminary Gram Negative Bacillus 1 Resulted 06/03/18 15:45 External Cath Urine Culture - Preliminary YEAST Resulted Accucheck: 197 Critical Care - Subjective ROS Limited/Unobtainable: Yes Condition: critical EKG Rhythm: Sinus Rhythm FI02: 40 Vent Support Breath Rate: 10 Vent Support Mode: AC Vent Tidal Volume: 500 Sputum Amount: Moderate PEEP: 5.0 PIP: 27 Tube Feeding Amount: 65 I&O: Intake and Output 06/04/18 06/05/18 19:00 07:00 Intake Total 680 ml 1355 ml Output Total 1850 ml 2000 ml Balance -1170 ml -645 ml Free Water 100 ml 200 ml IV Total 375 ml Tube Feeding 520 ml 780 ml Other 60 ml Output Urine Total 1850 ml 2000 ml # Bowel Movements 2 1 Labs: Laboratory Tests Test 06/05/18 03:20 White Blood Count 9.7 K/UL (4.8-10.8) Red Blood Count 3.86 M/UL (4.70-6.10) L Hemoglobin 9.4 G/DL (14.2-18.0) L Hematocrit 30.5 % (42.0-52.0) L Mean Corpuscular Volume 79 FL (80-99) L Mean Corpuscular Hemoglobin 24.4 PG (27.0-31.0) L Mean Corpuscular Hemoglobin Concent 30.9 G/DL (32.0-36.0) L Red Cell Distribution Width 19.9 % (11.6-14.8) H Platelet Count 339 K/UL (150-450) Mean Platelet Volume 7.6 FL (6.5-10.1) Neutrophils (%) (Auto) 65.6 % (45.0-75.0) Lymphocytes (%) (Auto) 25.8 % (20.0-45.0) Monocytes (%) (Auto) 6.5 % (1.0-10.0) Eosinophils (%) (Auto) 1.1 % (0.0-3.0) Basophils (%) (Auto) 1.1 % (0.0-2.0) Sodium Level 143 MMOL/L (136-145) Potassium Level 4.0 MMOL/L (3.5-5.1) Chloride Level 106 MMOL/L (98-107) Carbon Dioxide Level 31 MMOL/L (21-32) Anion Gap 6 mmol/L (5-15) Blood Urea Nitrogen 10 mg/dL (7-18) Creatinine 0.7 MG/DL (0.55-1.30) Estimat Glomerular Filtration Rate > 60 mL/min (>60) Glucose Level 167 MG/DL (74-106) H Calcium Level 8.7 MG/DL (8.5-10.1) Phosphorus Level 3.2 MG/DL (2.5-4.9) Magnesium Level 2.0 MG/DL (1.8-2.4) Total Bilirubin 0.2 MG/DL (0.2-1.0) Aspartate Amino Transf (AST/SGOT) 15 U/L (15-37) Alanine Aminotransferase (ALT/SGPT) 15 U/L (12-78) Alkaline Phosphatase 68 U/L (46-116) Total Protein 7.1 G/DL (6.4-8.2) Albumin 1.7 G/DL (3.4-5.0) L Globulin 5.4 g/dL Albumin/Globulin Ratio 0.3 (1.0-2.7) L Zarrabi,Mirali MD Jun 05, 2018 10:55
--- NOTE | 2018-06-05 11:00 | NUR ---
NURSE NOTES: MD CURRY CAME TO SEE THE PT MADE AWARE AND NOTIFIED REGARDING B/P 152/72, HR 55. M.D STATING WILL ORDER A NEW MEDICATIONS FOR HIGH B/P. WILL CONT TO MONITOR.
--- NOTE | 2018-06-05 11:34 | Diagnostic Imaging Report ---
Indication: Dyspnea Technique: One view of the chest Comparison: For 12/13/2018 Findings: Left-sided pleural effusion appears slightly larger. Underlying parenchymal consolidation is again demonstrated. Right lung and pleural space remain clear. Heart is enlarged. Left arm PICC, tracheostomy remain. Impression: Increasing left-sided pleural effusion, over 2 days Other stable findings as noted
[2018-06-05 12:00] VITALS: BP 144/96
--- NOTE | 2018-06-05 14:29 | Infectious Diseases Prog Note ---
Assessment/Plan Assessment/Plan ASSESSMENT/PLAN: 1. 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 sbe, providencia pna, sirs, leukocytosis, fevers, fevers persist, fungemia risk, ? new nosocomial infection, leukocytosis better, fevers better, ungal uti - meropenem, vancomycin and diflucan (fungemia coverage) - f/u on cultures, monitor labs and chest x-ray - echo - no discrete vegetation - report noted - d/w RN - pulmonary f/u on increased effusion - surveillance blood cultures - negative 2. Wound care protocol. 3. Trach, vent, and respiratory failure. 4. Dysphagia, G-tube. 5. CVA. 6. Poorly responsive. 7. Diabetes mellitus. 8. Hypertension. 9. Blood sugar and blood pressure treatment per primary. 10. Contractures. 11. Weakness secondary to CVA. 12. Chronic respiratory failure. 13. Vegetative state. 14. The patient currently is a full code. 15. Past medical history is noted. 16. No known allergies. 17. Social history is negative. 18. Family history is noncontributory. 19. MAR is noted. 20. Case was discussed with Dr. Weaver. 21. Continue treatment per primary consultants. Subjective Constitutional: Reports: other - + trach and vent ; Denies: fever HEENT: Reports: congestion Respiratory: Reports: shortness of breath Cardiovascular: Reports: other - no pressors Gastrointestinal/Abdominal: Denies: nausea, vomiting, diarrhea Genitourinary: Reports: other - + catheter Neurologic: Reports: weakness, other - lethargic, poorl responisve Psychiatric: Reports: other - na Skin: Denies: rash Hematologic: Denies: bleeding Musculoskeletal: Reports: other Allergies: Coded Allergies: No Known Allergies (Unverified , 05/27/18) Objective Vital Signs Last 24 Hour Vital Signs Date Time Temp Pulse Resp B/P (MAP) Pulse Ox O2 Delivery O2 Flow Rate FiO2 06/05/18 13:05 60 15 40 40 06/05/18 12:00 Mechanical Ventilator 06/05/18 12:00 40 06/05/18 11:15 58 16 40 40 06/05/18 09:00 57 17 40 40 06/05/18 08:00 40 06/05/18 08:00 53 06/05/18 08:00 Mechanical Ventilator 06/05/18 08:00 98.4 55 20 152/72 (98) 98 06/05/18 06:48 60 15 40 40 06/05/18 06:11 176/86 06/05/18 05:35 70 14 40 40 06/05/18 04:00 40 06/05/18 04:00 99.0 63 24 184/85 (118) 95 06/05/18 04:00 Mechanical Ventilator 06/05/18 04:00 75 06/05/18 03:08 69 18 40 40 06/05/18 01:25 75 22 40 40 06/05/18 00:00 99.4 63 24 174/78 (110) 95 06/05/18 00:00 Mechanical Ventilator 06/05/18 00:00 40 06/04/18 23:24 61 06/04/18 23:02 65 22 40 40 06/04/18 21:09 173/79 06/04/18 20:42 60 14 40 40 06/04/18 20:00 Mechanical Ventilator 06/04/18 20:00 99.2 58 17 145/76 (99) 96 06/04/18 20:00 40 06/04/18 19:07 55 16 40 40 06/04/18 19:01 64 06/04/18 17:11 62 18 40 06/04/18 16:00 61 06/04/18 16:00 40 06/04/18 16:00 99.0 85 20 141/76 (97) 97 06/04/18 16:00 Mechanical Ventilator 06/04/18 14:39 75 27 40 Height (Feet): 5 Height (Inches): 6.00 Weight (Pounds): 217 General Appearance: no acute distress, other - nad, on vent HEENT: normocephalic, atraumatic, anicteric, no JVD, status post trach Respiratory/Chest: crackles/rales, rhonchi - bilaterally Cardiovascular: normal rate, regular rhythm, no gallop/murmur, no JVD Abdomen: normal bowel sounds, soft, non tender, no organomegaly, non distended Genitourinary: other - + olmos - urine slt cloudy Extremities: no cyanosis Skin: no rash Neurologic/Psychiatric: motor weakness, other - lethargic, poorly responsive Lymphatic: no neck adenopathy Musculoskeletal: no effusion Objective Chest x-ray - 05/30/18 - EXAM: XR Chest, 1 View CLINICAL HISTORY: INFECT TECHNIQUE: Frontal view of the chest. COMPARISON: Chest x-ray, 05/29/18 1522 FINDINGS: Lungs: Hypoventilatory lungs. Similar left lower lung atelectasis/consolidation. Pleural space: Small left pleural effusion, slightly more loculated. No pneumothorax. Heart: Unremarkable. No cardiomegaly. Mediastinum: Unremarkable. Bones/joints: Unremarkable. Tubes, lines and devices: Tracheostomy tube. Stable left PICC line. IMPRESSION: 1. Hypoventilatory lungs. Similar left lower lung atelectasis/consolidation. 2. Small left pleural effusion, slightly more loculated. Chest x-ray - 06/03 - Procedure: XRAY Chest 1v Indication: Dyspnea Technique: One view of the chest Comparison: 06/02/2018 Findings: Tracheostomy, left arm PICC remain. Left sided pleural fluid and hazy parenchymal opacity persists, unchanged. Right lung and pleural space remain clear Impression: Unchanged, over one day, findings as above. Chest x-ray - 06/05/18 - Comparison: For 12/13/2018 Findings: Left-sided pleural effusion appears slightly larger. Underlying parenchymal consolidation is again demonstrated. Right lung and pleural space remain clear. Heart is enlarged. Left arm PICC, tracheostomy remain. Impression: Increasing left-sided pleural effusion, over 2 days Other stable findings as noted Microbiology Date/Time Source Procedure Growth Status 06/03/18 16:45 Blood Blood Culture - Preliminary NO GROWTH AFTER 24 HOURS Resulted 06/03/18 16:30 Blood Blood Culture - Preliminary NO GROWTH AFTER 24 HOURS Resulted 06/02/18 15:00 Pleural Fluid Gram Stain - Final Resulted 06/02/18 15:00 Pleural Fluid Body Fluid Culture - Preliminary NO GROWTH AFTER 48 HOURS Resulted 06/03/18 15:45 Sputum Induced Gram Stain - Final Resulted 06/03/18 15:45 Sputum Culture - Preliminary Gram Negative Bacillus 1 Resulted 06/03/18 15:45 External Cath Urine Culture - Preliminary YEAST Resulted Laboratory Tests Test 06/05/18 03:20 White Blood Count 9.7 K/UL (4.8-10.8) Red Blood Count 3.86 M/UL (4.70-6.10) L Hemoglobin 9.4 G/DL (14.2-18.0) L Hematocrit 30.5 % (42.0-52.0) L Mean Corpuscular Volume 79 FL (80-99) L Mean Corpuscular Hemoglobin 24.4 PG (27.0-31.0) L Mean Corpuscular Hemoglobin Concent 30.9 G/DL (32.0-36.0) L Red Cell Distribution Width 19.9 % (11.6-14.8) H Platelet Count 339 K/UL (150-450) Mean Platelet Volume 7.6 FL (6.5-10.1) Neutrophils (%) (Auto) 65.6 % (45.0-75.0) Lymphocytes (%) (Auto) 25.8 % (20.0-45.0) Monocytes (%) (Auto) 6.5 % (1.0-10.0) Eosinophils (%) (Auto) 1.1 % (0.0-3.0) Basophils (%) (Auto) 1.1 % (0.0-2.0) Sodium Level 143 MMOL/L (136-145) Potassium Level 4.0 MMOL/L (3.5-5.1) Chloride Level 106 MMOL/L (98-107) Carbon Dioxide Level 31 MMOL/L (21-32) Anion Gap 6 mmol/L (5-15) Blood Urea Nitrogen 10 mg/dL (7-18) Creatinine 0.7 MG/DL (0.55-1.30) Estimat Glomerular Filtration Rate > 60 mL/min (>60) Glucose Level 167 MG/DL (74-106) H Calcium Level 8.7 MG/DL (8.5-10.1) Phosphorus Level 3.2 MG/DL (2.5-4.9) Magnesium Level 2.0 MG/DL (1.8-2.4) Total Bilirubin 0.2 MG/DL (0.2-1.0) Aspartate Amino Transf (AST/SGOT) 15 U/L (15-37) Alanine Aminotransferase (ALT/SGPT) 15 U/L (12-78) Alkaline Phosphatase 68 U/L (46-116) Total Protein 7.1 G/DL (6.4-8.2) Albumin 1.7 G/DL (3.4-5.0) L Globulin 5.4 g/dL Albumin/Globulin Ratio 0.3 (1.0-2.7) L Current Medications Medications (Trade) Dose Ordered Sig/Bhupinder Route PRN Reason Start Time Stop Time Status Last Admin Dose Admin Acetaminophen (Tylenol) 650 mg Q4H PRN GT fever 05/27/18 13:15 06/26/18 13:14 06/03/18 12:29 Chlorhexidine Gluconate (Jasmin-Hex 2%) 1 applic DAILY@2000 TOPIC 05/28/18 20:00 06/27/18 19:59 06/04/18 20:23 Dextrose (Dextrose 50%) 25 ml Q30M PRN IV Hypoglycemia 05/30/18 08:15 06/29/18 08:14 Dextrose (Dextrose 50%) 50 ml Q30M PRN IV Hypoglycemia 05/30/18 08:15 06/29/18 08:14 Fluconazole/ Sodium Chloride 200 ml @ 200 mls/hr Q24H IV 06/03/18 16:30 06/10/18 16:29 06/04/18 17:34 Folic Acid (Folate) 1 mg DAILY GT 06/01/18 09:00 06/29/18 08:59 06/05/18 10:02 Heparin Sodium (Porcine) (Heparin 5000 units/ml) 5,000 units EVERY 12 HOURS SUBQ 05/27/18 21:00 06/26/18 20:59 06/05/18 10:07 Hydralazine HCl (Apresoline) 25 mg Q6H PRN ORAL SBP above 160 06/05/18 11:30 07/05/18 11:29 Insulin Aspart (NovoLOG) EVERY 6 HOURS SUBQ 06/03/18 06:00 07/03/18 05:59 06/05/18 13:21 Insulin Aspart (NovoLOG) 10 units EVERY 6 HOURS SUBQ 06/03/18 06:00 07/03/18 05:59 06/05/18 13:22 Iopamidol (Isovue-300 100ml) 100 ml NOW PRN INJ Radiology Procedure 05/30/18 00:15 Iopamidol (Isovue-370 150ml) 150 ml NOW PRN INJ Radiology Procedure 06/04/18 00:15 06/06/18 00:02 Levetiracetam (Keppra) 1,000 mg BID GT 06/04/18 09:00 06/27/18 08:59 06/05/18 10:02 Lisinopril (Prinivil) 20 mg QHS GT 05/31/18 21:00 06/30/18 00:59 06/04/18 21:09 Lorazepam (Ativan 2mg/ml 1ml) 2 mg Q2H PRN IV For Seizures 06/03/18 21:33 06/10/18 21:32 06/03/18 21:44 Meropenem 1 gm/ Sodium Chloride 100 ml @ 200 mls/hr Q8HR IVPB 06/03/18 22:00 06/08/18 21:59 06/05/18 06:11 Vancomycin HCl (Vanco rx to dose) 1 ea DAILY PRN MISC Per rx protocol 06/03/18 15:15 07/03/18 15:14 Vancomycin HCl 750 mg/Sodium Chloride 275 ml @ 183.333 mls/hr Q12H IVPB 06/03/18 20:00 06/08/18 19:59 06/05/18 10:02 Raoul Leigh MD Jun 05, 2018 14:29
--- NOTE | 2018-06-05 14:43 | General Progress Note ---
Assessment/Plan Assessment/Plan Assessment and Recs: # Anemia of chronic disease due to underlying chronic medical issues, multifactorial --> Anemia workup has been ordered, rule out gi bleed, it has been reviewed --> No evidence of hemolysis is noted, peripheral smear has been reviewed. --> Hgb goal >7. Transfuse prn --> Epogen or iron at this time is not particularly indicated --> Medications have been reviewed --> evaluate with Gi team prn --> hgb7.6-->8.3-->7.8-->8,5-->8.9-->9.4 # Leukocytosis/Elevated white blood cell count, unspecified likely related to underlying stress reaction, smoking v more likely infection (PNA) --> have reviewed peripheral smear and bandemia/neutrophilia noted --> continue antibiotics if they have been started by ID team --> monitor for resolution, 19k-->13k-->10k-->8k # Acute on chronic respiratory failure s/p trach --> on abx as per id --> pulm//cc on the case for management as well # Nosocomial pneumonia --> s/p abx treatment # Severe sepsis w/ pna --> on abx # Cerebrovascular accident (CVA) --> asa and statin # Vegetative state # Contracture of joint of multiple sites The timing of this note does not necessarily reflect the time of the patient was seen. Greatly appreciate consultation! Subjective Constitutional: Denies: no symptoms, chills, diaphoresis, fever, malaise, weakness, other HEENT: Denies: no symptoms, eye pain, blurred vision, tearing, double vision, ear pain, ear discharge, nose pain, nose congestion, throat pain, throat swelling, mouth pain, mouth swelling, other Cardiovascular: Denies: no symptoms, chest pain, edema, irregular heart rate, lightheadedness, palpitations, syncope, other Genitourinary: Denies: no symptoms, burning, discharge, frequency, flank pain, hematuria, incontinence, pain, urgency, other Neurologic/Psychiatric: Denies: no symptoms, anxiety, depressed, emotional problems, headache, numbness, paresthesia, pre-existing deficit, seizure, tingling, tremors, weakness, other Endocrine: Denies: no symptoms, excessive sweating, flushing, intolerance to cold, intolerance to heat, increased hunger, increased thirst, increased urine, unexplained weight gain, unexplained weight loss, other Hematologic/Lymphatic: Denies: no symptoms, anemia, easy bleeding, easy bruising, other Allergies: Coded Allergies: No Known Allergies (Unverified , 05/27/18) Subjective 05/29: midline was leaking better, now in better position, no complaints 05/31: no major duress, hgb 8.3, no bleeding reported 06/01: remains obtunded, no night sweats, seen by endo 06/02: no events to report, is bradycardic, asymptomatic 06/03: abx have been changed to toni, vanc, diflucan 06/04: is on vanc/toni/flucon, spiked yesterday, seenby id 06/05: no events, on abx, cbc has been reviewed, hgb 9.4 Objective Last 24 Hour Vital Signs Date Time Temp Pulse Resp B/P (MAP) Pulse Ox O2 Delivery O2 Flow Rate FiO2 06/05/18 13:05 60 15 40 40 06/05/18 12:00 Mechanical Ventilator 06/05/18 12:00 40 06/05/18 11:15 58 16 40 40 06/05/18 09:00 57 17 40 40 06/05/18 08:00 40 06/05/18 08:00 53 06/05/18 08:00 Mechanical Ventilator 06/05/18 08:00 98.4 55 20 152/72 (98) 98 06/05/18 06:48 60 15 40 40 06/05/18 06:11 176/86 06/05/18 05:35 70 14 40 40 06/05/18 04:00 40 06/05/18 04:00 99.0 63 24 184/85 (118) 95 06/05/18 04:00 Mechanical Ventilator 06/05/18 04:00 75 06/05/18 03:08 69 18 40 40 06/05/18 01:25 75 22 40 40 06/05/18 00:00 99.4 63 24 174/78 (110) 95 06/05/18 00:00 Mechanical Ventilator 06/05/18 00:00 40 06/04/18 23:24 61 06/04/18 23:02 65 22 40 40 06/04/18 21:09 173/79 06/04/18 20:42 60 14 40 40 06/04/18 20:00 Mechanical Ventilator 06/04/18 20:00 99.2 58 17 145/76 (99) 96 06/04/18 20:00 40 06/04/18 19:07 55 16 40 40 06/04/18 19:01 64 06/04/18 17:11 62 18 40 06/04/18 16:00 61 06/04/18 16:00 40 06/04/18 16:00 99.0 85 20 141/76 (97) 97 06/04/18 16:00 Mechanical Ventilator Intake and Output 06/04/18 06/05/18 19:00 07:00 Intake Total 680 ml 1355 ml Output Total 1850 ml 2000 ml Balance -1170 ml -645 ml Free Water 100 ml 200 ml IV Total 375 ml Tube Feeding 520 ml 780 ml Other 60 ml Output Urine Total 1850 ml 2000 ml # Bowel Movements 2 1 Laboratory Tests 06/05/18 03:20: White Blood Count 9.7, Red Blood Count 3.86L, Hemoglobin 9.4L, Hematocrit 30.5L , Mean Corpuscular Volume 79L, Mean Corpuscular Hemoglobin 24.4L, Mean Corpuscular Hemoglobin Concent 30.9L, Red Cell Distribution Width 19.9H, Platelet Count 339, Mean Platelet Volume 7.6, Neutrophils (%) (Auto) 65.6, Lymphocytes (%) (Auto) 25.8, Monocytes (%) (Auto) 6.5, Eosinophils (%) (Auto) 1.1, Basophils (%) (Auto) 1.1, Sodium Level 143, Potassium Level 4.0, Chloride Level 106, Carbon Dioxide Level 31, Anion Gap 6, Blood Urea Nitrogen 10, Creatinine 0.7, Estimat Glomerular Filtration Rate > 60, Glucose Level 167H, Calcium Level 8.7, Phosphorus Level 3.2, Magnesium Level 2.0, Total Bilirubin 0.2, Aspartate Amino Transf (AST/SGOT) 15, Alanine Aminotransferase (ALT/SGPT) 15, Alkaline Phosphatase 68, Total Protein 7.1, Albumin 1.7L, Globulin 5.4, Albumin/Globulin Ratio 0.3L Height (Feet): 5 Height (Inches): 6.00 Weight (Pounds): 217 Edema: mild edema Neurologic: alert Skin: warm/dry Objective PE: Vitals: reviewed, stable General Appearance: NAD, vegetative state HEENT: normocephalic, atraumatic Neck: non-tender, normal alignment Respiratory/Chest: crackles b/l noted, ++ trach/vent Cardiovascular/Chest: normal peripheral pulses, normal rate Abdomen: normal bowel sounds, soft, nontender ++ peg Extremities: normal range of motion Trey Tripathi MD Jun 05, 2018 14:43
[2018-06-05 16:00] VITALS: BP 172/81
[2018-06-05] MEDS ORDERED: NS 275ml ONE (16:08)
[2018-06-05] MEDS ORDERED: Tubing IV Secondary IV ONE (16:08)
--- NOTE | 2018-06-05 18:45 | Progress Note ---
DATE: 06/05/2018 CARDIOLOGY PROGRESS NOTE SUBJECTIVE: The patient remains on ventilator support. He has moderate trach secretions and requires aggressive suctioning. He has episodes of bradycardia, most prominently when he is congested and has respiratory distress. He also has episodes of elevated blood pressure readings. OBJECTIVE: VITAL SIGNS: Blood pressure 152/72, pulse 55, respirations 20. LUNGS: Bilateral breath sounds and rhonchi. Moderate trach secretions. HEART: Regular rhythm. Slow rate. Normal S1, S2. ABDOMEN: Soft. EXTREMITIES: No edema. IMPRESSION: 1. Seizure disorder. 2. Sinus bradycardia. 3. Hypertensive heart disease. 4. Labile hypertension. 5. Ventilator-dependent respiratory failure. 6. Nosocomial pneumonia. 7. CVA with seizure disorder. PLAN: 1. CT of the brain per primary care physician. 2. Respiratory hygiene therapy, bronchodilators, and antimicrobials with no clonidine in view of bradycardia. 3. Hydralazine p.r.n. for blood pressure spikes. 4. Titrate baseline antihypertensives if needed. 5. Continue cardiac monitoring. 6. No indication for pacemaker. Otto Condon M.D. DR: SUKUMAR JOB#: [id number] CC:
--- NOTE | 2018-06-05 18:50 | NUR ---
NURSE NOTES: PT WITH HIGH B/P 172/81 ,MEDICATED WITH HYDRALAZINE 25MG VIA GT, PER M.D ORDERS. WILL CONT TO MONITOR.
[2018-06-05] MEDS: HydrALAZINE 25mg tab ORAL PRN (18:57)
--- NOTE | 2018-06-05 19:25 | NUR ---
NURSE NOTES: Received report from Aren RN, pt. in bed obtunded, no signs or symptoms of acute cardiac or respiratory distress noted, pt. on tire care manager, pt. appears to be tolerating current vent settings well, AC 10, TV 500, FIo2 @40% and peep 5- no distress noted, G tube has Glucerna 1.2 running at 65cc/hr- no residual noted, dressings dry and intact, pt. is clean and dry and all needs attended to, bed in lowest position and call light within easy reach, bed alarm on, side rails up x's3 and safety brakes engaged, ANGELES PICC intact and patent- TKO, safety measures continued, will continue with plan of care.
--- NOTE | 2018-06-05 19:32 | NUR ---
HAND-OFF: Report given to .ALIA CARVALHO RN.
[2018-06-05 20:00] VITALS: BP 151/77
[2018-06-05] MEDS: Dyna-Hex 2% Top Sol 2oz TOPIC SCH (20:34)
[2018-06-05] MEDS: Lisinopril 20mg tab GT SCH (20:35)
--- NOTE | 2018-06-05 21:53 | NUR ---
NURSE NOTES: pt. leaving for CT of head now- hooked up to portable monitoring specialist- pt. appears to be stable and no signs of distress noted. Resource nurse Virginie will go down to CT with patient.
--- NOTE | 2018-06-05 22:46 | Diagnostic Imaging Report ---
EXAM: CT Head Without Intravenous Contrast CLINICAL HISTORY: SZ TECHNIQUE: Axial computed tomography images of the head/brain without intravenous contrast. CTDI is 70 mGy and DLP is 1477 mGy-cm. One or more of the following dose reduction techniques were used: automated exposure control, adjustment of the mA and/or kV according to patient size, use of iterative reconstruction technique. COMPARISON: No relevant prior studies available. FINDINGS: Brain: There is a large area of encephalomalacia in the left posterior parietal and occipital region consistent with old infarct. There is chronic small vessel ischemic disease. No hemorrhage. Ventricles: Moderate generalized age-related atrophy. The ventricles and sulci are prominent. Bones/joints: Unremarkable. No acute fracture. Soft tissues: Unremarkable. Vasculature: There is atherosclerosis. Sinuses: Unremarkable as visualized. No acute sinusitis. Mastoid air cells: There is fluid in the bilateral mastoid air cells. IMPRESSION: 1. No acute intracranial pathology. 2. Old infarct in the left posterior parietal occipital region with subtle malacia. 3. Age-related cerebral atrophy with chronic small vessel ischemic disease.
[2018-06-06] VITALS (10 sets, daily range): BP systolic 149–183; BP diastolic 62–90
[2018-06-06] MEDS: HydrALAZINE 25mg tab ORAL PRN ×4 (01:18→22:40)
--- NOTE | 2018-06-06 03:21 | NUR ---
HAND-OFF: Report given to Enrique Vera, pt. remains stable and no signs of distress noted. Head CT scan and CXR results endorsed.
--- NOTE | 2018-06-06 03:25 | NUR ---
NURSE NOTES: Received Pt from MELISA Guthrie. Pt is sleeping on the bed and obtunded. Trach to Vent dependent setting with AC: 10, T: 500, P: 5, FiO2 40% and SaO2 100% noted. Given oral care and tracheal suction. On Tele monitor with SB with HR: 52's. On condom cath and in placed. Lt. upper arm PICC line dressing is clean and dry and no sign of infiltration noted. On G-tube feeding with Glucerna 1.2 @ 65cc/hr. No residual noted. Placed fall and seizure precaution. Will continue to care plan.
[2018-06-06 05:30] LABS: BASOPHILS % (AUTO) 0.7 % (0.0-2.0); EOSINOPHILS % (AUTO) 1.5 % (0.0-3.0); HEMATOCRIT 28.9 % (42.0-52.0); LYMPHOCYTES % (AUTO) 28.9 % (20.0-45.0); MEAN CORPUSCULAR VOLUME 79 FL (80-99); MONOCYTES % (AUTO) 3.2 % (1.0-10.0); NEUTROPHILS % (AUTO) 65.8 % (45.0-75.0); PLATELET COUNT 294 K/UL (150-450); RED BLOOD COUNT 3.68 M/UL (4.70-6.10); RED CELL DISTRIBUTION WIDTH 19.6 % (11.6-14.8); WHITE BLOOD COUNT 7.9 K/UL (4.8-10.8)
[2018-06-06 05:47] LABS: ALANINE AMINOTRANSFERASE 15 U/L (12-78); ALBUMIN 1.6 G/DL (3.4-5.0); ALBUMIN/GLOBULIN RATIO 0.3 (1.0-2.7); ALKALINE PHOSPHATASE 65 U/L (46-116); ANION GAP 4 mmol/L (5-15); ASPARTATE AMINO TRANSFERASE 13 U/L (15-37); BILIRUBIN,TOTAL 0.2 MG/DL (0.2-1.0); BLOOD UREA NITROGEN 11 mg/dL (7-18); CALCIUM 8.8 MG/DL (8.5-10.1); CARBON DIOXIDE 34 MMOL/L (21-32); CHLORIDE 105 MMOL/L (98-107); CREATININE 0.7 MG/DL (0.55-1.30); POTASSIUM 3.4 MMOL/L (3.5-5.1); SODIUM 142 MMOL/L (136-145)
[2018-06-06] MEDS: NovoLOG Insulin Flexpen SUBQ SCH ×6 (05:58→17:02)
--- NOTE | 2018-06-06 06:30 | NUR ---
NURSE NOTES: Noted potassium level is 3.4 today. Left message to Dr. Odom and awaiting call back.
--- NOTE | 2018-06-06 07:17 | NUR ---
NURSE NOTES: Received report from MELISA Nunez. Patient is resting in bed, in stable condition. No s/sx of SOB, breathing is even and unlabored. Vent settings are as ordered. Bed is in lowest position, brakes engaged. Call light is kept within easy reach. Will continue to monitor patient.
--- NOTE | 2018-06-06 07:33 | NUR ---
HAND-OFF: Report given to MELISA Wade. Pt is resting on the bed and no sign of acute distress noted. Get call back from Dr. Odom and new order received.
[2018-06-06] MEDS: Vancomycin 750 MG in NS 275 ML IVPB SCH ×2 (07:52→20:29)
--- NOTE | 2018-06-06 07:58 | General Progress Note ---
Assessment/Plan Problem List: (1) Diabetes mellitus ICD Codes: E11.9 - Type 2 diabetes mellitus without complications SNOMED: 57242944 (2) Chronic respiratory failure ICD Codes: J96.10 - Chronic respiratory failure, unspecified whether with hypoxia or hypercapnia SNOMED: 71922915 (3) Contracture of joint of multiple sites ICD Codes: M24.50 - Contracture, unspecified joint SNOMED: 06630777, 170847704 (4) Pneumonia ICD Codes: J18.9 - Pneumonia, unspecified organism SNOMED: 153121499 (5) Severe sepsis ICD Codes: A41.9 - Sepsis, unspecified organism; R65.20 - Severe sepsis without septic shock SNOMED: 38229884 (6) Vegetative state ICD Codes: R40.3 - Persistent vegetative state SNOMED: 06654307 (7) Cerebrovascular accident (CVA) ICD Codes: I63.9 - Cerebral infarction, unspecified SNOMED: 932438801 (8) Sepsis ICD Codes: A41.9 - Sepsis, unspecified organism SNOMED: 05457271 Assessment/Plan continue Novolog 10 units every 6 hours continue NISS every 6 hours Subjective ROS Limited/Unobtainable: Yes Allergies: Coded Allergies: No Known Allergies (Unverified , 05/27/18) Subjective events noted on vent TF at 65 mL/hour Item Value Date Time Bedside Blood Glucose 221 mg/dl H 06/06/18 0600 Bedside Blood Glucose 224 mg/dl H 06/05/18 2333 Bedside Blood Glucose 101 mg/dl 06/05/18 1747 Bedside Blood Glucose 178 mg/dl H 06/05/18 1322 Objective Last 24 Hour Vital Signs Date Time Temp Pulse Resp B/P (MAP) Pulse Ox O2 Delivery O2 Flow Rate FiO2 06/06/18 06:58 60 17 40 06/06/18 05:12 59 19 40 40 06/06/18 04:00 Mechanical Ventilator 06/06/18 04:00 40 06/06/18 04:00 98.2 55 17 160/79 (106) 98 06/06/18 04:00 58 06/06/18 03:18 55 19 40 40 06/06/18 01:19 49 15 40 40 06/06/18 01:18 169/73 06/06/18 00:00 98.2 59 19 169/73 (105) 98 06/06/18 00:00 Mechanical Ventilator 06/06/18 00:00 60 06/05/18 23:09 69 21 40 40 06/05/18 21:10 61 18 40 40 06/05/18 20:35 151/77 06/05/18 20:00 Mechanical Ventilator 06/05/18 20:00 58 06/05/18 20:00 40 06/05/18 20:00 98.2 64 18 151/77 (101) 97 06/05/18 19:14 65 16 40 40 06/05/18 18:57 172/81 06/05/18 16:43 58 16 40 40 06/05/18 16:00 53 06/05/18 16:00 98.2 58 20 172/81 (111) 98 06/05/18 16:00 Mechanical Ventilator 06/05/18 16:00 40 06/05/18 15:00 56 17 40 40 06/05/18 13:05 60 15 40 40 06/05/18 12:00 Mechanical Ventilator 06/05/18 12:00 98.4 53 19 144/96 (112) 99 06/05/18 12:00 40 06/05/18 11:15 58 16 40 40 06/05/18 09:00 57 17 40 40 06/05/18 08:00 40 06/05/18 08:00 53 06/05/18 08:00 Mechanical Ventilator 06/05/18 08:00 98.4 55 20 152/72 (98) 98 Intake and Output 06/05/18 06/06/18 18:59 06:59 Intake Total 1421.666 ml 1446.6 ml Output Total 500 ml 1200 ml Balance 921.666 ml 246.6 ml Free Water 300 ml 0 ml IV Total 666.666 ml 666.6 ml Tube Feeding 455 ml 780 ml Output Urine Total 500 ml 1200 ml # Voids 3 Laboratory Tests 06/06/18 03:55: White Blood Count 7.9, Red Blood Count 3.68L, Hemoglobin 9.0L, Hematocrit 28.9L , Mean Corpuscular Volume 79L, Mean Corpuscular Hemoglobin 24.5L, Mean Corpuscular Hemoglobin Concent 31.1L, Red Cell Distribution Width 19.6H, Platelet Count 294, Mean Platelet Volume 7.1, Neutrophils (%) (Auto) 65.8, Lymphocytes (%) (Auto) 28.9, Monocytes (%) (Auto) 3.2, Eosinophils (%) (Auto) 1.5, Basophils (%) (Auto) 0.7, Sodium Level 142, Potassium Level 3.4L, Chloride Level 105, Carbon Dioxide Level 34H, Anion Gap 4L, Blood Urea Nitrogen 11, Creatinine 0.7, Estimat Glomerular Filtration Rate > 60, Glucose Level 160H, Calcium Level 8.8, Total Bilirubin 0.2, Aspartate Amino Transf (AST/SGOT) 13L, Alanine Aminotransferase (ALT/SGPT) 15, Alkaline Phosphatase 65, Total Protein 6.9, Albumin 1.6L, Globulin 5.3, Albumin/Globulin Ratio 0.3L Height (Feet): 5 Height (Inches): 6.00 Weight (Pounds): 217 General Appearance: lethargic Neck: other - trach Cardiovascular: normal peripheral pulses Respiratory/Chest: decreased breath sounds Abdomen: normal bowel sounds, other - PEG Pelvis: normal external exam Edema: 1+ Arm (L), 1+ Arm (R), 1+ Leg (L), 1+ Leg (R), 1+ Pedal (L), 1+ Pedal ( R), 1+ Generalized Objective Current Medications Medications (Trade) Dose Ordered Sig/Bhupinder Route PRN Reason Start Time Stop Time Status Last Admin Dose Admin Acetaminophen (Tylenol) 650 mg Q4H PRN GT fever 05/27/18 13:15 06/26/18 13:14 06/03/18 12:29 Chlorhexidine Gluconate (Jasmin-Hex 2%) 1 applic DAILY@2000 TOPIC 05/28/18 20:00 06/27/18 19:59 06/05/18 20:34 Dextrose (Dextrose 50%) 25 ml Q30M PRN IV Hypoglycemia 05/30/18 08:15 06/29/18 08:14 Dextrose (Dextrose 50%) 50 ml Q30M PRN IV Hypoglycemia 05/30/18 08:15 06/29/18 08:14 Fluconazole/ Sodium Chloride 200 ml @ 200 mls/hr Q24H IV 06/03/18 16:30 06/10/18 16:29 06/05/18 17:25 Folic Acid (Folate) 1 mg DAILY GT 06/01/18 09:00 06/29/18 08:59 06/05/18 10:02 Heparin Sodium (Porcine) (Heparin 5000 units/ml) 5,000 units EVERY 12 HOURS SUBQ 05/27/18 21:00 06/26/18 20:59 06/05/18 20:37 Hydralazine HCl (Apresoline) 25 mg Q6H PRN ORAL SBP above 160 06/05/18 11:30 07/05/18 11:29 06/06/18 01:18 Insulin Aspart (NovoLOG) EVERY 6 HOURS SUBQ 06/03/18 06:00 07/03/18 05:59 06/06/18 05:58 Insulin Aspart (NovoLOG) 10 units EVERY 6 HOURS SUBQ 06/03/18 06:00 07/03/18 05:59 06/06/18 05:59 Iopamidol (Isovue-300 100ml) 100 ml NOW PRN INJ Radiology Procedure 05/30/18 00:15 Levetiracetam (Keppra) 1,000 mg BID GT 06/04/18 09:00 06/27/18 08:59 06/05/18 17:53 Lisinopril (Prinivil) 20 mg QHS GT 05/31/18 21:00 06/30/18 00:59 06/05/18 20:35 Lorazepam (Ativan 2mg/ml 1ml) 2 mg Q2H PRN IV For Seizures 06/03/18 21:33 06/10/18 21:32 06/03/18 21:44 Meropenem 1 gm/ Sodium Chloride 100 ml @ 200 mls/hr Q8HR IVPB 06/03/18 22:00 06/08/18 21:59 06/06/18 05:47 Potassium Chloride 40 meq/ Sodium Chloride 1,020 ml @ 75 mls/hr [id number] ONCE IV 06/06/18 09:00 06/06/18 22:35 Vancomycin HCl (Vanco rx to dose) 1 ea DAILY PRN MISC Per rx protocol 06/03/18 15:15 07/03/18 15:14 Vancomycin HCl 750 mg/Sodium Chloride 275 ml @ 183.333 mls/hr Q12H IVPB 06/03/18 20:00 06/08/18 19:59 06/06/18 07:52 Ayan Gillespie MD Jun 06, 2018 07:58
[2018-06-06] MEDS: levETIRAcetam 500mg/5ml Liquid GT SCH ×2 (08:32→16:59)
[2018-06-06] MEDS: Heparin 5000 units/ml inj SUBQ SCH ×2 (08:33→20:29)
[2018-06-06] MEDS ORDERED: Potassium Chloride 40 MEQ in 1/2 NS 1000ml 1,000 ML IV ONE (09:00)
--- NOTE | 2018-06-06 09:05 | Diagnostic Imaging Report ---
EXAM: XR Chest, 1 View. CLINICAL HISTORY: Infection TECHNIQUE: Frontal view of the chest. COMPARISON: 06/05/18 at 0807 hrs. FINDINGS: Lungs: Again seen is a large left pleural effusion with associated atelectasis in both left upper and lower lobes. This appears grossly unchanged since the prior exam. Right lung is well aerated. Heart: Cardiac silhouette is unchanged. Mediastinum: No mediastinal shift. Tracheostomy tube unchanged in position. Again seen is a prominent aortic arch. Bones: No acute osseous abnormality. IMPRESSION: Stable exam.
[2018-06-06] MEDS: LORazepam Inj 2mg/ml 1ml IV PRN (16:59)
--- NOTE | 2018-06-06 17:02 | Pulmonolgy Critical Care Note ---
Critical Care - Asmt/Plan Problems: (1) Acute on chronic respiratory failure (2) Sepsis (3) Nosocomial pneumonia (4) Severe sepsis (5) Pneumonia (6) Vegetative state (7) Contracture of joint of multiple sites (8) Chronic respiratory failure (9) Diabetes mellitus (10) Cerebrovascular accident (CVA) Respiratory: monitor respiratory rate, adjust FIO2, CXR Cardiac: continue pressors Renal: F/U I&O, keep IV fluid Infectious Disease: check cultures Gastrointestinal: continue feedings/current rate Endocrine: monitor blood sugar, check TSH Neurologic: PRN Ativan Affect: PRN ativan Prophylaxis: Heparin Time Spent (Minutes): 30 Notes Reviewed: cardio, renal Discussed with: nurses, consultants, case making 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 - Objective Last 24 Hour Vital Signs Date Time Temp Pulse Resp B/P (MAP) Pulse Ox O2 Delivery O2 Flow Rate FiO2 06/06/18 16:00 40 06/06/18 15:15 55 18 40 06/06/18 14:46 162/82 (108) 06/06/18 14:45 162/82 06/06/18 14:33 97.7 51 17 177/76 (109) 99 06/06/18 13:00 55 19 40 06/06/18 12:00 99.0 58 17 183/88 (119) 99 06/06/18 11:51 Mechanical Ventilator 06/06/18 11:51 40 06/06/18 11:48 55 06/06/18 11:20 52 16 40 06/06/18 09:32 149/82 (104) 06/06/18 08:48 58 19 40 06/06/18 08:35 176/84 06/06/18 08:00 62 06/06/18 08:00 97.3 62 17 167/85 (112) 99 06/06/18 08:00 40 06/06/18 08:00 Mechanical Ventilator 06/06/18 06:58 60 17 40 06/06/18 05:12 59 19 40 40 06/06/18 04:00 Mechanical Ventilator 06/06/18 04:00 40 06/06/18 04:00 98.2 55 17 160/79 (106) 98 06/06/18 04:00 58 06/06/18 03:18 55 19 40 40 06/06/18 01:19 49 15 40 40 06/06/18 01:18 169/73 06/06/18 00:00 98.2 59 19 169/73 (105) 98 06/06/18 00:00 Mechanical Ventilator 06/06/18 00:00 60 06/05/18 23:09 69 21 40 40 06/05/18 21:10 61 18 40 40 06/05/18 20:35 151/77 06/05/18 20:00 Mechanical Ventilator 06/05/18 20:00 58 06/05/18 20:00 40 06/05/18 20:00 98.2 64 18 151/77 (101) 97 06/05/18 19:14 65 16 40 40 06/05/18 18:57 172/81 Status: sedated Condition: critical HEENT: atraumatic Neck: full ROM Lungs: clear Heart: HR/BP unstable, regular Abdomen: non-tender, active bowel sounds Extremities: no C/C/E, edema Decubiti: location Accucheck: 163 Critical Care - Subjective ROS Limited/Unobtainable: Yes Condition: critical FI02: 40 Vent Support Breath Rate: 10 Vent Support Mode: AC Vent Tidal Volume: 500 Sputum Amount: Small PEEP: 5.0 PIP: 26 Tube Feeding Amount: 65 I&O: Intake and Output 06/05/18 06/06/18 19:00 07:00 Intake Total 1421.666 ml 1446.6 ml Output Total 500 ml 1200 ml Balance 921.666 ml 246.6 ml Free Water 300 ml 0 ml IV Total 666.666 ml 666.6 ml Tube Feeding 455 ml 780 ml Output Urine Total 500 ml 1200 ml # Voids 3 CXR: increasing effusion Yomi Odom MD Jun 06, 2018 17:02
[2018-06-06] MEDS ORDERED: HydrALAZINE 50mg tab ORAL SCH (18:00)
--- NOTE | 2018-06-06 18:10 | NUR ---
NURSE NOTES: Patient is noted with elevated blood pressure, PRN hydralazine 25 mg Q6HR given, blood pressure remained elevated. Called and informed Dr. Condon of situation, Dr. Condon acknowledged and ordered Hydralazine 50 mg GT TID give one dose now, keep Hydralazine 25 mg GT Q6HR PRN as ordered. Orders entered, noted, and carried out. Last BP 177/72 HR 60. At time of administration of Hydralazine 50 mg, BP 151/62, HR 60. Will continue to monitor patient.
--- NOTE | 2018-06-06 19:32 | NUR ---
HAND-OFF: Report given to MELISA Stevens.
--- NOTE | 2018-06-06 19:33 | NUR ---
NURSE NOTES: Received patient from Mauro VINCENT. Patient is obtunded and receiving oxygen via Portex 7 settings AC 10, TV 500, Fio2 40% PEEP 5. Patient has a G-tube that is patent, no residuals, and receiving Glucerna 1.2 at 65cc/hr. Urine is drained via a condom catheter that is intact and draining. IV site is Left Upper arm PICC line that is patent and asymptomatic. Bed is locked, placed in lowest position, side rails up x3, call light within reach. Will continue to monitor.
[2018-06-06] MEDS: Dyna-Hex 2% Top Sol 2oz TOPIC SCH (20:26)
[2018-06-06] MEDS: Lisinopril 20mg tab GT SCH (20:27)
[2018-06-06] MEDS ORDERED: Tubing IV Secondary IV ONE (20:33)
[2018-06-06] MEDS ORDERED: NS 275ml ONE (20:33)
[2018-06-06] MEDS: HydrALAZINE 50mg tab ORAL SCH (22:22)
[2018-06-07] VITALS: BP 160/90
[2018-06-07] MEDS: NovoLOG Insulin Flexpen SUBQ SCH ×10 (00:02→23:54)
[2018-06-07 04:00] VITALS: BP 61/85
--- NOTE | 2018-06-07 06:09 | NUR ---
RESPIRATORY NOTE: Patient received mechanically ventilated on PB 840 with current ordered vent settings. Patient has trach size 7.0 Portex cuffed that is secured with a trach tie and guard. There are bilateral coarse breath sounds present upon auscultation. Small amount fo thick clear/white secretions were suctioned without incident. Vent alarms are functional and audible. There is an ambu bag available at the bedside and the vent is connected to a red outlet. Patient appears comfortable at this time with no signs/symptoms of respiratory distress or shortness of breath noted at this time. Will continue to monitor.
[2018-06-07] MEDS: HydrALAZINE 50mg tab ORAL SCH ×3 (06:29→22:23)
--- NOTE | 2018-06-07 07:30 | NUR ---
HAND-OFF: Report given to Meenu Esteves RN. Patient is stable.
[2018-06-07 08:00] VITALS: BP 163/87
--- NOTE | 2018-06-07 08:00 | NUR ---
NURSE NOTES: received pt in the bed, vent dependent, obtunded, vital signs stable, no co pain, no SOB, skin warm and dry to touch, redness on sacral, condom catheter with yellow urine, tolerate GT feeding well, bed in low position, HOB elevated.
[2018-06-07] MEDS: Vancomycin 750 MG in NS 275 ML IVPB SCH ×2 (08:17→20:46)
[2018-06-07] MEDS: levETIRAcetam 500mg/5ml Liquid GT SCH ×2 (08:17→17:41)
[2018-06-07] MEDS: Heparin 5000 units/ml inj SUBQ SCH ×2 (08:18→20:28)
--- NOTE | 2018-06-07 10:41 | General Progress Note ---
Assessment/Plan Problem List: (1) Diabetes mellitus ICD Codes: E11.9 - Type 2 diabetes mellitus without complications SNOMED: 59865963 (2) Chronic respiratory failure ICD Codes: J96.10 - Chronic respiratory failure, unspecified whether with hypoxia or hypercapnia SNOMED: 99682362 (3) Contracture of joint of multiple sites ICD Codes: M24.50 - Contracture, unspecified joint SNOMED: 88390633, 953210644 (4) Pneumonia ICD Codes: J18.9 - Pneumonia, unspecified organism SNOMED: 745839939 (5) Severe sepsis ICD Codes: A41.9 - Sepsis, unspecified organism; R65.20 - Severe sepsis without septic shock SNOMED: 87497319 (6) Vegetative state ICD Codes: R40.3 - Persistent vegetative state SNOMED: 24647110 (7) Cerebrovascular accident (CVA) ICD Codes: I63.9 - Cerebral infarction, unspecified SNOMED: 351661500 (8) Sepsis ICD Codes: A41.9 - Sepsis, unspecified organism SNOMED: 85495957 Assessment/Plan continue Novolog 10 units every 6 hours continue NISS every 6 hours Subjective ROS Limited/Unobtainable: Yes Allergies: Coded Allergies: No Known Allergies (Unverified , 05/27/18) Subjective events noted on vent TF at 65 mL/hour Item Value Date Time Bedside Blood Glucose 205 mg/dl H 06/07/18 0643 Bedside Blood Glucose 213 mg/dl H 06/07/18 0003 Bedside Blood Glucose 163 mg/dl H 06/06/18 1800 Bedside Blood Glucose 193 mg/dl H 06/06/18 1151 Objective Last 24 Hour Vital Signs Date Time Temp Pulse Resp B/P (MAP) Pulse Ox O2 Delivery O2 Flow Rate FiO2 06/07/18 09:14 59 17 40 06/07/18 08:06 Mechanical Ventilator 06/07/18 08:00 40 06/07/18 08:00 Mechanical Ventilator 06/07/18 08:00 98.9 62 20 163/87 (112) 100 06/07/18 08:00 64 06/07/18 07:06 58 18 40 06/07/18 06:29 161/85 06/07/18 04:40 72 20 40 06/07/18 04:00 Mechanical Ventilator 06/07/18 04:00 78 06/07/18 04:00 98.8 66 21 61/85 (77) 98 06/07/18 04:00 40 06/07/18 02:45 79 17 40 06/07/18 00:55 85 18 40 06/07/18 00:00 Mechanical Ventilator 06/07/18 00:00 98.8 70 22 160/90 (113) 97 06/06/18 23:15 77 19 40 06/06/18 22:40 184/93 06/06/18 22:22 190/91 06/06/18 21:00 40 06/06/18 20:48 64 20 40 06/06/18 20:27 167/90 06/06/18 20:00 Mechanical Ventilator 06/06/18 20:00 98.8 70 22 167/90 (115) 97 06/06/18 20:00 61 06/06/18 19:10 60 18 40 06/06/18 18:20 151/79 06/06/18 18:00 60 17 151/62 (91) 99 06/06/18 17:00 58 18 40 06/06/18 16:00 56 06/06/18 16:00 40 06/06/18 16:00 Mechanical Ventilator 06/06/18 16:00 97.7 60 17 177/72 (107) 99 06/06/18 15:15 55 18 40 06/06/18 14:46 162/82 (108) 06/06/18 14:45 162/82 06/06/18 13:00 55 19 40 06/06/18 12:00 99.0 58 17 183/88 (119) 99 06/06/18 11:51 Mechanical Ventilator 06/06/18 11:51 40 06/06/18 11:48 55 06/06/18 11:20 52 16 40 Intake and Output 06/06/18 06/07/18 18:59 06:59 Intake Total 930 ml 1255.003 ml Output Total 900 ml Balance 30 ml 1255.003 ml Free Water 150 ml IV Total 475.003 ml Tube Feeding 780 ml 780 ml Output Urine Total 900 ml # Voids 2 # Bowel Movements 1 Height (Feet): 5 Height (Inches): 6.00 Weight (Pounds): 217 General Appearance: no apparent distress EENT: other - trach Neck: normal alignment Cardiovascular: normal rate Respiratory/Chest: decreased breath sounds Abdomen: normal bowel sounds, other - PEG Pelvis: normal external exam Objective Current Medications Medications (Trade) Dose Ordered Sig/Bhupinder Route PRN Reason Start Time Stop Time Status Last Admin Dose Admin Acetaminophen (Tylenol) 650 mg Q4H PRN GT fever 05/27/18 13:15 06/26/18 13:14 06/03/18 12:29 Chlorhexidine Gluconate (Jasmin-Hex 2%) 1 applic DAILY@2000 TOPIC 05/28/18 20:00 06/27/18 19:59 06/06/18 20:26 Dextrose (Dextrose 50%) 25 ml Q30M PRN IV Hypoglycemia 05/30/18 08:15 06/29/18 08:14 Dextrose (Dextrose 50%) 50 ml Q30M PRN IV Hypoglycemia 05/30/18 08:15 06/29/18 08:14 Fluconazole/ Sodium Chloride 200 ml @ 200 mls/hr Q24H IV 06/03/18 16:30 06/10/18 16:29 06/06/18 15:48 Folic Acid (Folate) 1 mg DAILY GT 06/01/18 09:00 06/29/18 08:59 06/07/18 08:17 Heparin Sodium (Porcine) (Heparin 5000 units/ml) 5,000 units EVERY 12 HOURS SUBQ 05/27/18 21:00 06/26/18 20:59 06/07/18 08:18 Hydralazine HCl (Apresoline) 25 mg Q6H PRN ORAL SBP above 160 06/05/18 11:30 07/05/18 11:29 06/06/18 22:40 Hydralazine HCl (Apresoline) 50 mg Q8HR ORAL 06/06/18 22:00 07/06/18 21:59 06/07/18 06:29 Insulin Aspart (NovoLOG) EVERY 6 HOURS SUBQ 06/03/18 06:00 07/03/18 05:59 06/07/18 06:43 Insulin Aspart (NovoLOG) 10 units EVERY 6 HOURS SUBQ 06/03/18 06:00 07/03/18 05:59 06/07/18 06:42 Iopamidol (Isovue-300 100ml) 100 ml NOW PRN INJ Radiology Procedure 05/30/18 00:15 Levetiracetam (Keppra) 1,000 mg BID GT 06/04/18 09:00 06/27/18 08:59 06/07/18 08:17 Lisinopril (Prinivil) 20 mg QHS GT 05/31/18 21:00 06/30/18 00:59 06/06/18 20:27 Lorazepam (Ativan 2mg/ml 1ml) 2 mg Q2H PRN IV For Seizures 06/03/18 21:33 06/10/18 21:32 06/06/18 16:59 Meropenem 1 gm/ Sodium Chloride 100 ml @ 200 mls/hr Q8HR IVPB 06/03/18 22:00 06/08/18 21:59 06/07/18 06:29 Vancomycin HCl (Vanco rx to dose) 1 ea DAILY PRN MISC Per rx protocol 06/03/18 15:15 07/03/18 15:14 Vancomycin HCl 750 mg/Sodium Chloride 275 ml @ 183.333 mls/hr Q12H IVPB 06/03/18 20:00 06/08/18 19:59 06/07/18 08:17 Ayan Gillespie MD Jun 07, 2018 10:41
[2018-06-07 12:00] VITALS: BP 174/87
[2018-06-07] MEDS: HydrALAZINE 25mg tab ORAL PRN (12:46)
--- NOTE | 2018-06-07 13:02 | Infectious Diseases Prog Note ---
Assessment/Plan Assessment/Plan ASSESSMENT/PLAN: 1. sepsis, staph aureus bacteremia, ticket speculator bacteremia, picc line - 05/29/18, ? sbe, providencia pna, sirs, leukocytosis, fevers, fevers persist, fungemia risk, ? new nosocomial infection, leukocytosis better, fevers better, ungal uti - meropenem, vancomycin (05/28/18) and diflucan (fungemia coverage) - f/u on sputum culture, monitor labs and chest x-ray - fevers and leukocytosis better - echo - no discrete vegetation - report noted - d/w RN - pulmonary f/u on increased effusion - ? thoracentesis - surveillance blood cultures - negative - antibiotic treatment plan once all cultures back 2. Wound care protocol. 3. Trach, vent, and respiratory failure. 4. Dysphagia, G-tube. 5. CVA. 6. Poorly responsive. 7. Diabetes mellitus. 8. Hypertension. 9. Blood sugar and blood pressure treatment per primary. 10. Contractures. 11. Weakness secondary to CVA. 12. Chronic respiratory failure. 13. Vegetative state. 14. The patient currently is a full code. 15. Past medical history is noted. 16. No known allergies. 17. Social history is negative. 18. Family history is noncontributory. 19. MAR is noted. 20. Case was discussed with Dr. Weaver. 21. Continue treatment per primary consultants. Subjective Constitutional: Reports: other - + trach and vent ; Denies: fever HEENT: Reports: congestion Respiratory: Reports: shortness of breath Cardiovascular: Reports: other - no pressors Gastrointestinal/Abdominal: Denies: nausea, vomiting, diarrhea Genitourinary: Reports: other - + olmos Neurologic: Reports: weakness, other - opens eyes, poorl respoonsive Psychiatric: Reports: other - na Skin: Denies: rash Endocrine: Reports: other - na Hematologic: Denies: bleeding Musculoskeletal: Reports: pain, other - na Allergies: Coded Allergies: No Known Allergies (Unverified , 05/27/18) Objective Vital Signs Last 24 Hour Vital Signs Date Time Temp Pulse Resp B/P (MAP) Pulse Ox O2 Delivery O2 Flow Rate FiO2 06/07/18 12:46 174/78 06/07/18 10:50 57 18 40 06/07/18 09:14 59 17 40 06/07/18 08:06 Mechanical Ventilator 06/07/18 08:00 40 06/07/18 08:00 Mechanical Ventilator 06/07/18 08:00 98.9 62 20 163/87 (112) 100 06/07/18 08:00 64 06/07/18 07:06 58 18 40 06/07/18 06:29 161/85 06/07/18 04:40 72 20 40 06/07/18 04:00 Mechanical Ventilator 06/07/18 04:00 78 06/07/18 04:00 98.8 66 21 61/85 (77) 98 06/07/18 04:00 40 06/07/18 02:45 79 17 40 06/07/18 00:55 85 18 40 06/07/18 00:00 Mechanical Ventilator 06/07/18 00:00 98.8 70 22 160/90 (113) 97 06/06/18 23:15 77 19 40 06/06/18 22:40 184/93 06/06/18 22:22 190/91 06/06/18 21:00 40 06/06/18 20:48 64 20 40 06/06/18 20:27 167/90 06/06/18 20:00 Mechanical Ventilator 06/06/18 20:00 98.8 70 22 167/90 (115) 97 06/06/18 20:00 61 06/06/18 19:10 60 18 40 06/06/18 18:20 151/79 06/06/18 18:00 60 17 151/62 (91) 99 06/06/18 17:00 58 18 40 06/06/18 16:00 56 06/06/18 16:00 40 06/06/18 16:00 Mechanical Ventilator 06/06/18 16:00 97.7 60 17 177/72 (107) 99 06/06/18 15:15 55 18 40 06/06/18 14:46 162/82 (108) 06/06/18 14:45 162/82 06/06/18 13:00 55 19 40 Height (Feet): 5 Height (Inches): 6.00 Weight (Pounds): 217 General Appearance: no acute distress, other - nad on vent HEENT: normocephalic, atraumatic, anicteric, no JVD, status post trach Respiratory/Chest: crackles/rales, rhonchi - bilaterally Cardiovascular: normal rate, regular rhythm, no gallop/murmur, no JVD Abdomen: normal bowel sounds, soft, non tender, no organomegaly, non distended Genitourinary: other - + olmos - urine slt cloudy Extremities: no cyanosis Skin: no rash Neurologic/Psychiatric: motor weakness, other - weak, poorly responsive Lymphatic: no neck adenopathy Musculoskeletal: no effusion Objective Chest x-ray - 05/30/18 - EXAM: XR Chest, 1 View CLINICAL HISTORY: INFECT TECHNIQUE: Frontal view of the chest. COMPARISON: Chest x-ray, 05/29/18 1522 FINDINGS: Lungs: Hypoventilatory lungs. Similar left lower lung atelectasis/consolidation. Pleural space: Small left pleural effusion, slightly more loculated. No pneumothorax. Heart: Unremarkable. No cardiomegaly. Mediastinum: Unremarkable. Bones/joints: Unremarkable. Tubes, lines and devices: Tracheostomy tube. Stable left PICC line. IMPRESSION: 1. Hypoventilatory lungs. Similar left lower lung atelectasis/consolidation. 2. Small left pleural effusion, slightly more loculated. Chest x-ray - 06/03 - Procedure: XRAY Chest 1v Indication: Dyspnea Technique: One view of the chest Comparison: 06/02/2018 Findings: Tracheostomy, left arm PICC remain. Left sided pleural fluid and hazy parenchymal opacity persists, unchanged. Right lung and pleural space remain clear Impression: Unchanged, over one day, findings as above. Chest x-ray - 06/05/18 - Comparison: For 12/13/2018 Findings: Left-sided pleural effusion appears slightly larger. Underlying parenchymal consolidation is again demonstrated. Right lung and pleural space remain clear. Heart is enlarged. Left arm PICC, tracheostomy remain. Impression: Increasing left-sided pleural effusion, over 2 days Other stable findings as noted Chest x-ray - 06/06/18 - FINDINGS: Lungs: Again seen is a large left pleural effusion with associated atelectasis in both left upper and lower lobes. This appears grossly unchanged since the prior exam. Right lung is well aerated. Heart: Cardiac silhouette is unchanged. Mediastinum: No mediastinal shift. Tracheostomy tube unchanged in position. Again seen is a prominent aortic arch. Bones: No acute osseous abnormality. IMPRESSION: Stable exam. Microbiology Date/Time Source Procedure Growth Status 06/03/18 16:45 Blood Blood Culture - Preliminary NO GROWTH AFTER 72 HOURS Resulted 06/02/18 15:00 Pleural Fluid Gram Stain - Final Complete 06/02/18 15:00 Pleural Fluid Body Fluid Culture - Final NO GROWTH Complete 06/03/18 15:45 Sputum Induced Gram Stain - Final Resulted 06/03/18 15:45 Sputum Culture - Preliminary Gram Negative Bacillus 1 Resulted 06/03/18 15:45 External Cath Urine Culture - Final Audra Tropicalis Complete 05/27/18 11:45 Rectum VRE Culture - Final Enterococcus Faecalis - Vre Complete Labs Test 06/05/18 03:20 06/06/18 03:55 White Blood Count 9.7 K/UL (4.8-10.8) 7.9 K/UL (4.8-10.8) Red Blood Count 3.86 M/UL (4.70-6.10) 3.68 M/UL (4.70-6.10) Hemoglobin 9.4 G/DL (14.2-18.0) 9.0 G/DL (14.2-18.0) Hematocrit 30.5 % (42.0-52.0) 28.9 % (42.0-52.0) Mean Corpuscular Volume 79 FL (80-99) 79 FL (80-99) Mean Corpuscular Hemoglobin 24.4 PG (27.0-31.0) 24.5 PG (27.0-31.0) Mean Corpuscular Hemoglobin Concent 30.9 G/DL (32.0-36.0) 31.1 G/DL (32.0-36.0) Red Cell Distribution Width 19.9 % (11.6-14.8) 19.6 % (11.6-14.8) Platelet Count 339 K/UL (150-450) 294 K/UL (150-450) Mean Platelet Volume 7.6 FL (6.5-10.1) 7.1 FL (6.5-10.1) Neutrophils (%) (Auto) 65.6 % (45.0-75.0) 65.8 % (45.0-75.0) Lymphocytes (%) (Auto) 25.8 % (20.0-45.0) 28.9 % (20.0-45.0) Monocytes (%) (Auto) 6.5 % (1.0-10.0) 3.2 % (1.0-10.0) Eosinophils (%) (Auto) 1.1 % (0.0-3.0) 1.5 % (0.0-3.0) Basophils (%) (Auto) 1.1 % (0.0-2.0) 0.7 % (0.0-2.0) Sodium Level 143 MMOL/L (136-145) 142 MMOL/L (136-145) Potassium Level 4.0 MMOL/L (3.5-5.1) 3.4 MMOL/L (3.5-5.1) Chloride Level 106 MMOL/L (98-107) 105 MMOL/L (98-107) Carbon Dioxide Level 31 MMOL/L (21-32) 34 MMOL/L (21-32) Anion Gap 6 mmol/L (5-15) 4 mmol/L (5-15) Blood Urea Nitrogen 10 mg/dL (7-18) 11 mg/dL (7-18) Creatinine 0.7 MG/DL (0.55-1.30) 0.7 MG/DL (0.55-1.30) Estimat Glomerular Filtration Rate > 60 mL/min (>60) > 60 mL/min (>60) Glucose Level 167 MG/DL (74-106) 160 MG/DL (74-106) Calcium Level 8.7 MG/DL (8.5-10.1) 8.8 MG/DL (8.5-10.1) Phosphorus Level 3.2 MG/DL (2.5-4.9) Magnesium Level 2.0 MG/DL (1.8-2.4) Total Bilirubin 0.2 MG/DL (0.2-1.0) 0.2 MG/DL (0.2-1.0) Aspartate Amino Transf (AST/SGOT) 15 U/L (15-37) 13 U/L (15-37) Alanine Aminotransferase (ALT/SGPT) 15 U/L (12-78) 15 U/L (12-78) Alkaline Phosphatase 68 U/L (46-116) 65 U/L (46-116) Total Protein 7.1 G/DL (6.4-8.2) 6.9 G/DL (6.4-8.2) Albumin 1.7 G/DL (3.4-5.0) 1.6 G/DL (3.4-5.0) Globulin 5.4 g/dL 5.3 g/dL Albumin/Globulin Ratio 0.3 (1.0-2.7) 0.3 (1.0-2.7) Current Medications Medications (Trade) Dose Ordered Sig/Bhupinder Route PRN Reason Start Time Stop Time Status Last Admin Dose Admin Acetaminophen (Tylenol) 650 mg Q4H PRN GT fever 05/27/18 13:15 06/26/18 13:14 06/03/18 12:29 Chlorhexidine Gluconate (Jasmin-Hex 2%) 1 applic DAILY@2000 TOPIC 05/28/18 20:00 06/27/18 19:59 06/06/18 20:26 Dextrose (Dextrose 50%) 25 ml Q30M PRN IV Hypoglycemia 05/30/18 08:15 06/29/18 08:14 Dextrose (Dextrose 50%) 50 ml Q30M PRN IV Hypoglycemia 05/30/18 08:15 06/29/18 08:14 Fluconazole/ Sodium Chloride 200 ml @ 200 mls/hr Q24H IV 06/03/18 16:30 06/10/18 16:29 06/06/18 15:48 Folic Acid (Folate) 1 mg DAILY GT 06/01/18 09:00 06/29/18 08:59 06/07/18 08:17 Heparin Sodium (Porcine) (Heparin 5000 units/ml) 5,000 units EVERY 12 HOURS SUBQ 05/27/18 21:00 06/26/18 20:59 06/07/18 08:18 Hydralazine HCl (Apresoline) 25 mg Q6H PRN ORAL SBP above 160 06/05/18 11:30 07/05/18 11:29 06/07/18 12:46 Hydralazine HCl (Apresoline) 50 mg Q8HR ORAL 06/06/18 22:00 07/06/18 21:59 06/07/18 06:29 Insulin Aspart (NovoLOG) EVERY 6 HOURS SUBQ 06/03/18 06:00 07/03/18 05:59 06/07/18 12:45 Insulin Aspart (NovoLOG) 10 units EVERY 6 HOURS SUBQ 06/03/18 06:00 07/03/18 05:59 06/07/18 12:46 Iopamidol (Isovue-300 100ml) 100 ml NOW PRN INJ Radiology Procedure 05/30/18 00:15 Levetiracetam (Keppra) 1,000 mg BID GT 06/04/18 09:00 06/27/18 08:59 06/07/18 08:17 Lisinopril (Prinivil) 20 mg QHS GT 05/31/18 21:00 06/30/18 00:59 06/06/18 20:27 Lorazepam (Ativan 2mg/ml 1ml) 2 mg Q2H PRN IV For Seizures 06/03/18 21:33 06/10/18 21:32 06/06/18 16:59 Meropenem 1 gm/ Sodium Chloride 100 ml @ 200 mls/hr Q8HR IVPB 06/03/18 22:00 06/08/18 21:59 06/07/18 06:29 Vancomycin HCl (Vanco rx to dose) 1 ea DAILY PRN MISC Per rx protocol 06/03/18 15:15 07/03/18 15:14 Vancomycin HCl 750 mg/Sodium Chloride 275 ml @ 183.333 mls/hr Q12H IVPB 06/03/18 20:00 06/08/18 19:59 06/07/18 08:17 Raoul Leigh MD Jun 07, 2018 13:02
--- NOTE | 2018-06-07 15:25 | NUR ---
NURSE NOTES: no distress at this time, no co pain, bed bath give, continue monitoring.
--- NOTE | 2018-06-07 15:59 | General Progress Note ---
Assessment/Plan Assessment/Plan Assessment and Recs: # Anemia of chronic disease due to underlying chronic medical issues, multifactorial --> Anemia workup has been ordered, rule out gi bleed, it has been reviewed --> No evidence of hemolysis is noted, peripheral smear has been reviewed. --> Hgb goal >7. Transfuse prn --> Epogen or iron at this time is not particularly indicated --> Medications have been reviewed --> evaluate with Gi team prn --> hgb7.6-->8.3-->7.8-->8,5-->8.9-->9.4-->9 # Leukocytosis/Elevated white blood cell count, unspecified likely related to underlying stress reaction, smoking v more likely infection (PNA) --> have reviewed peripheral smear and bandemia/neutrophilia noted --> continue antibiotics if they have been started by ID team --> monitor for resolution, 19k-->13k-->10k-->8k # Acute on chronic respiratory failure s/p trach --> on abx as per id --> pulm//cc on the case for management as well # Nosocomial pneumonia --> s/p abx treatment # Severe sepsis w/ pna --> on abx # Cerebrovascular accident (CVA) --> asa and statin # Vegetative state # Contracture of joint of multiple sites The timing of this note does not necessarily reflect the time of the patient was seen. Greatly appreciate consultation! Subjective Constitutional: Denies: no symptoms, chills, diaphoresis, fever, malaise, weakness, other HEENT: Denies: no symptoms, eye pain, blurred vision, tearing, double vision, ear pain, ear discharge, nose pain, nose congestion, throat pain, throat swelling, mouth pain, mouth swelling, other Respiratory: Denies: no symptoms, cough, orthopnea, shortness of breath, SOB with excertion, SOB at rest, sputum, stridor, wheezing, other Gastrointestinal/Abdominal: Denies: no symptoms, abdomen distended, abdominal pain, black stools, tarry stools, blood in stool, constipated, diarrhea, difficulty swallowing, nausea, poor appetite, poor fluid intake, rectal bleeding , vomiting, other Genitourinary: Denies: no symptoms, burning, discharge, frequency, flank pain, hematuria, incontinence, pain, urgency, other Endocrine: Denies: no symptoms, excessive sweating, flushing, intolerance to cold, intolerance to heat, increased hunger, increased thirst, increased urine, unexplained weight gain, unexplained weight loss, other Hematologic/Lymphatic: Denies: no symptoms, anemia, easy bleeding, easy bruising, other Allergies: Coded Allergies: No Known Allergies (Unverified , 05/27/18) Subjective 05/29: midline was leaking better, now in better position, no complaints 05/31: no major duress, hgb 8.3, no bleeding reported 06/01: remains obtunded, no night sweats, seen by endo 06/02: no events to report, is bradycardic, asymptomatic 06/03: abx have been changed to toni, vanc, diflucan 06/04: is on vanc/toni/flucon, spiked yesterday, seenby id 06/05: no events, on abx, cbc has been reviewed, hgb 9.4 06/07: no events to report, no fevers or chills, on abx as per iD Objective Last 24 Hour Vital Signs Date Time Temp Pulse Resp B/P (MAP) Pulse Ox O2 Delivery O2 Flow Rate FiO2 06/07/18 15:06 64 16 40 06/07/18 14:54 178/86 06/07/18 13:19 63 06/07/18 12:46 174/78 06/07/18 12:40 60 17 40 06/07/18 12:00 98.8 61 28 174/87 (116) 100 06/07/18 12:00 Mechanical Ventilator 06/07/18 12:00 40 06/07/18 10:50 57 18 40 06/07/18 09:14 59 17 40 06/07/18 08:06 Mechanical Ventilator 06/07/18 08:00 40 06/07/18 08:00 Mechanical Ventilator 06/07/18 08:00 98.9 62 20 163/87 (112) 100 06/07/18 08:00 64 06/07/18 07:06 58 18 40 06/07/18 06:29 161/85 06/07/18 04:40 72 20 40 06/07/18 04:00 Mechanical Ventilator 06/07/18 04:00 78 06/07/18 04:00 98.8 66 21 61/85 (77) 98 06/07/18 04:00 40 06/07/18 02:45 79 17 40 06/07/18 00:55 85 18 40 06/07/18 00:00 Mechanical Ventilator 06/07/18 00:00 98.8 70 22 160/90 (113) 97 06/06/18 23:15 77 19 40 06/06/18 22:40 184/93 06/06/18 22:22 190/91 06/06/18 21:00 40 06/06/18 20:48 64 20 40 06/06/18 20:27 167/90 06/06/18 20:00 Mechanical Ventilator 06/06/18 20:00 98.8 70 22 167/90 (115) 97 06/06/18 20:00 61 06/06/18 19:10 60 18 40 06/06/18 18:20 151/79 06/06/18 18:00 60 17 151/62 (91) 99 06/06/18 17:00 58 18 40 06/06/18 16:00 56 06/06/18 16:00 40 06/06/18 16:00 Mechanical Ventilator 06/06/18 16:00 97.7 60 17 177/72 (107) 99 Intake and Output 06/06/18 06/07/18 19:00 07:00 Intake Total 930 ml 1255.003 ml Output Total 900 ml Balance 30 ml 1255.003 ml Free Water 150 ml IV Total 475.003 ml Tube Feeding 780 ml 780 ml Output Urine Total 900 ml # Voids 2 # Bowel Movements 1 Height (Feet): 5 Height (Inches): 6.00 Weight (Pounds): 217 Objective PE: Vitals: reviewed, stable General Appearance: NAD, vegetative state HEENT: normocephalic, atraumatic Neck: non-tender, normal alignment Respiratory/Chest: crackles b/l noted, ++ trach/vent Cardiovascular/Chest: normal peripheral pulses, normal rate Abdomen: normal bowel sounds, soft, nontender ++ peg Extremities: normal range of motion Trey Tripathi MD Jun 07, 2018 15:59
[2018-06-07 16:00] VITALS: BP 163/81
[2018-06-07] MEDS ORDERED: Tubing IV Secondary IV ONE (16:38)
[2018-06-07] MEDS ORDERED: NS 275ml ONE (16:38)
--- NOTE | 2018-06-07 19:21 | NUR ---
HAND-OFF: Report given to DEVEN VINCENT, NO ANY DISTRESS.
--- NOTE | 2018-06-07 19:23 | NUR ---
NURSE NOTES: Patient received from Meenu VINCENT. Patient in bed obtunded, on fbi profiler, no signs and symptom of cardiac distress noted. Patient appears to be tolerating vent settings well. Vent set at AC 10, TV 500, Fio2 40, PEEP 5. Running Glucerna 1.2 at 65cc/hr with no residual noted. Condom cath is intact and draining to gravity, patient appears to be clean and dry. Left upper arm PICC intact and patent on TKO. Bed at lowest position, call light in reach with X3 side rails up, and safety breaks engaged. Side rails padded with no seizures noted. Safety measures continued and will continue with plan of care.
--- NOTE | 2018-06-07 19:30 | NUR ---
RESPIRATORY NOTE: Received pt on AC 10, 500VT, 40%, PEEP +5. Pt is trach-dependent w/ a cuffed, Portex 7 tube. Pt flat effect, minimal response to stimuli. B/S villa. rhonchi, sxn small amounts of thick/thin, pale-yellow secretions. Vent plugged into red outlet, ambubag at bedside. Pt in no apparent distress at this time. Will continue plan of care.
[2018-06-07 20:00] VITALS: BP 166/80
[2018-06-07] MEDS: Dyna-Hex 2% Top Sol 2oz TOPIC SCH (20:26)
[2018-06-07] MEDS: Lisinopril 20mg tab GT SCH (20:27)
[2018-06-08] VITALS: BP 156/76
--- NOTE | 2018-06-08 03:15 | Progress Note ---
DATE: 06/06/2018 CARDIOLOGY PROGRESS NOTE Late entry for 06/06/2018. SUBJECTIVE: The patient remains on ventilator support. Comatose. Noncommunicative. OBJECTIVE: VITAL SIGNS: Blood pressure parameters remain labile at 149/82 to 183/88, heart rate 52 to 62, respiratory rate 17 to 19, and temperature max is 99. LUNGS: Trach secretions are thick and moderate in quantity. There is bilateral rhonchi. HEART: Regular rhythm. Slow rate. Normal S1, S2. ABDOMEN: Soft. EXTREMITIES: Trace dependent edema. DIAGNOSTIC DATA: Chest x-ray reveals no acute change with large left pleural effusion persisting. IMPRESSION: 1. Asymptomatic sinus bradycardia likely autonomic dysfunction is playing a role here. 2. Accelerated labile hypertension. 3. Ventilator-dependent respiratory failure. 4. Healthcare-acquired pneumonia. PLAN: 1. No role for pacemaker. 2. Titrate antihypertensives if persistently elevated blood pressure noted. P.r.n. therapy is on board. 3. Antimicrobials and respiratory hygiene. Otto Condon M.D. DR: HAY JOB#: [id number] CC:
--- NOTE | 2018-06-08 03:30 | Progress Note ---
DATE: 06/07/2018 CARDIOLOGY PROGRESS NOTE SUBJECTIVE: Little change. The patient is on IV antimicrobials for Staph aureus bacteremia. The possibility of endocarditis is being discussed. Monitor, sinus bradycardia. OBJECTIVE: VITAL SIGNS: Blood pressure 156/80, pulse 58, and respirations 15. LUNGS: Coarse breath sounds. Scattered rhonchi. HEART: Regular rhythm. Slow rate. Normal S1, S2. ABDOMEN: Soft. EXTREMITIES: Trace edema. LABORATORY DATA: Repeat blood cultures are negative. IMPRESSION: 1. Bacteremia likely due to PICC line. 2. Low suspicion for endocarditis. 3. Ventilator-dependent respiratory failure. 4. Asymptomatic sinus bradycardia. 5. Hypertensive heart disease with labile blood pressure. 6. Healthcare-acquired pneumonia. PLAN: 1. No role for pacemaker. 2. No beta-stacy therapy. 3. Advance antihypertensives. 4. Replace potassium as needed. 5. Recheck magnesium. 6. If recurring bacteremia is noted, transesophageal echocardiogram will be considered. Otto Condon M.D. DR: HAY JOB#: [id number] CC:
[2018-06-08 04:00] VITALS: BP 161/80
[2018-06-08] MEDS: HydrALAZINE 50mg tab ORAL SCH ×2 (05:42→14:04)
[2018-06-08] MEDS: NovoLOG Insulin Flexpen SUBQ SCH ×4 (05:44→12:11)
--- NOTE | 2018-06-08 06:36 | General Progress Note ---
Assessment/Plan Problem List: (1) Diabetes mellitus ICD Codes: E11.9 - Type 2 diabetes mellitus without complications SNOMED: 42312335 (2) Chronic respiratory failure ICD Codes: J96.10 - Chronic respiratory failure, unspecified whether with hypoxia or hypercapnia SNOMED: 18331684 (3) Contracture of joint of multiple sites ICD Codes: M24.50 - Contracture, unspecified joint SNOMED: 58289991, 561059106 (4) Pneumonia ICD Codes: J18.9 - Pneumonia, unspecified organism SNOMED: 595048856 (5) Severe sepsis ICD Codes: A41.9 - Sepsis, unspecified organism; R65.20 - Severe sepsis without septic shock SNOMED: 32679114 (6) Vegetative state ICD Codes: R40.3 - Persistent vegetative state SNOMED: 46686426 (7) Cerebrovascular accident (CVA) ICD Codes: I63.9 - Cerebral infarction, unspecified SNOMED: 084621752 (8) Sepsis ICD Codes: A41.9 - Sepsis, unspecified organism SNOMED: 65443470 Assessment/Plan continue Novolog 10 units every 6 hours continue NISS every 6 hours Subjective ROS Limited/Unobtainable: Yes Allergies: Coded Allergies: No Known Allergies (Unverified , 05/27/18) Subjective events noted Item Value Date Time Bedside Blood Glucose 196 mg/dl H 06/08/18 0544 Bedside Blood Glucose 284 mg/dl H 06/07/18 2354 Bedside Blood Glucose 152 mg/dl H 06/07/18 1742 Bedside Blood Glucose 185 mg/dl H 06/07/18 1246 Bedside Blood Glucose 205 mg/dl H 06/07/18 0643 Bedside Blood Glucose 213 mg/dl H 06/07/18 0003 Objective Last 24 Hour Vital Signs Date Time Temp Pulse Resp B/P (MAP) Pulse Ox O2 Delivery O2 Flow Rate FiO2 06/08/18 05:42 161/80 06/08/18 05:05 61 19 Mechanical Ventilator 40 06/08/18 05:05 61 19 40 06/08/18 04:00 98.5 64 17 161/80 (107) 98 06/08/18 04:00 66 06/08/18 04:00 40 06/08/18 04:00 Mechanical Ventilator 06/08/18 03:04 60 19 40 06/08/18 01:19 66 19 40 06/08/18 00:00 98.7 62 17 156/76 (102) 98 06/08/18 00:00 60 06/08/18 00:00 Mechanical Ventilator 06/08/18 00:00 40 06/07/18 23:21 65 14 40 06/07/18 22:23 153/80 06/07/18 21:17 58 15 40 06/07/18 20:27 166/80 06/07/18 20:00 40 06/07/18 20:00 Mechanical Ventilator 06/07/18 20:00 98.8 64 17 166/80 (108) 99 06/07/18 20:00 63 06/07/18 19:28 61 18 40 06/07/18 16:46 68 18 40 06/07/18 16:04 63 06/07/18 16:00 Mechanical Ventilator 06/07/18 16:00 98.8 68 19 163/81 (108) 98 06/07/18 16:00 40 06/07/18 15:06 64 16 40 06/07/18 14:54 178/86 06/07/18 13:19 63 06/07/18 12:46 174/78 06/07/18 12:40 60 17 40 06/07/18 12:00 98.8 61 28 174/87 (116) 100 06/07/18 12:00 Mechanical Ventilator 06/07/18 12:00 40 06/07/18 10:50 57 18 40 06/07/18 09:14 59 17 40 06/07/18 08:06 Mechanical Ventilator 06/07/18 08:00 40 06/07/18 08:00 Mechanical Ventilator 06/07/18 08:00 98.9 62 20 163/87 (112) 100 06/07/18 08:00 64 06/07/18 07:06 58 18 40 Intake and Output 06/07/18 06/08/18 19:00 07:00 Intake Total 1255.000 ml 1060.000 ml Output Total 1002 ml Balance 253.000 ml 1060.000 ml Free Water 200 ml 100 ml IV Total 275.000 ml 375.000 ml Tube Feeding 780 ml 585 ml Output Urine Total 1000 ml Stool Total 2 ml # Bowel Movements 1 Height (Feet): 5 Height (Inches): 6.00 Weight (Pounds): 217 General Appearance: no apparent distress Neck: normal alignment Cardiovascular: normal rate Respiratory/Chest: decreased breath sounds Abdomen: normal bowel sounds Edema: 1+ Arm (L), 1+ Arm (R), 1+ Leg (L), 1+ Leg (R), 1+ Pedal (L), 1+ Pedal ( R), 1+ Generalized Objective Current Medications Medications (Trade) Dose Ordered Sig/Bhupinder Route PRN Reason Start Time Stop Time Status Last Admin Dose Admin Acetaminophen (Tylenol) 650 mg Q4H PRN GT fever 05/27/18 13:15 06/26/18 13:14 06/03/18 12:29 Chlorhexidine Gluconate (Jasmin-Hex 2%) 1 applic DAILY@2000 TOPIC 05/28/18 20:00 06/27/18 19:59 06/07/18 20:26 Dextrose (Dextrose 50%) 25 ml Q30M PRN IV Hypoglycemia 05/30/18 08:15 06/29/18 08:14 Dextrose (Dextrose 50%) 50 ml Q30M PRN IV Hypoglycemia 05/30/18 08:15 06/29/18 08:14 Fluconazole/ Sodium Chloride 200 ml @ 200 mls/hr Q24H IV 06/03/18 16:30 06/10/18 16:29 06/07/18 17:40 Folic Acid (Folate) 1 mg DAILY GT 06/01/18 09:00 06/29/18 08:59 06/07/18 08:17 Heparin Sodium (Porcine) (Heparin 5000 units/ml) 5,000 units EVERY 12 HOURS SUBQ 05/27/18 21:00 06/26/18 20:59 06/07/18 20:28 Hydralazine HCl (Apresoline) 25 mg Q6H PRN ORAL SBP above 160 06/05/18 11:30 07/05/18 11:29 06/07/18 12:46 Hydralazine HCl (Apresoline) 50 mg Q8HR ORAL 06/06/18 22:00 07/06/18 21:59 06/08/18 05:42 Insulin Aspart (NovoLOG) EVERY 6 HOURS SUBQ 06/03/18 06:00 07/03/18 05:59 06/08/18 05:44 Insulin Aspart (NovoLOG) 10 units EVERY 6 HOURS SUBQ 06/03/18 06:00 07/03/18 05:59 06/08/18 05:44 Iopamidol (Isovue-300 100ml) 100 ml NOW PRN INJ Radiology Procedure 05/30/18 00:15 Levetiracetam (Keppra) 1,000 mg BID GT 06/04/18 09:00 06/27/18 08:59 06/07/18 17:41 Lisinopril (Prinivil) 40 mg QHS GT 06/08/18 21:00 07/08/18 20:59 Lorazepam (Ativan 2mg/ml 1ml) 2 mg Q2H PRN IV For Seizures 06/03/18 21:33 06/10/18 21:32 06/06/18 16:59 Meropenem 1 gm/ Sodium Chloride 100 ml @ 200 mls/hr Q8HR IVPB 06/07/18 14:00 06/12/18 13:59 06/08/18 05:42 Vancomycin HCl (Vanco rx to dose) 1 ea DAILY PRN MISC Per rx protocol 06/07/18 13:15 07/07/18 13:14 Vancomycin HCl 750 mg/Sodium Chloride 275 ml @ 183.333 mls/hr Q12H IVPB 06/07/18 20:00 06/12/18 19:59 06/07/18 20:46 Ayan Gillespie MD Jun 08, 2018 06:36
--- NOTE | 2018-06-08 07:20 | NUR ---
HAND-OFF: Report given to Oliva VINCENT. Patient remains stable and no signs of distress noted. Notified Lab to redraw lavender tube as PICC is not drawing well.
--- NOTE | 2018-06-08 07:30 | NUR ---
NURSE NOTES: Received report from Leland Saul RN. Patient awake, nonverbal, unable to follow commands. Trach to vent with settings of AC 10, TV 500, FiO2 40%, PEEP 5, no s/s of respiratory distress noted. GT feeding of Glucerna 1.2 running @ 65 cc/hr, no residuals noted, reduced to 55 cc/hr as ordered. HoB elevated. Condom catheter in place and draining well. Left upper arm PICC patent and asymptomatic. Bed locked in lowest position with padded side rails up x 3. All needs attended to. Will continue to monitor.
[2018-06-08 07:38] LABS: ALANINE AMINOTRANSFERASE 13 U/L (12-78); ALBUMIN 1.8 G/DL (3.4-5.0); ALBUMIN/GLOBULIN RATIO 0.4 (1.0-2.7); ALKALINE PHOSPHATASE 81 U/L (46-116); ANION GAP 6 mmol/L (5-15); ASPARTATE AMINO TRANSFERASE 13 U/L (15-37); BILIRUBIN,TOTAL 0.2 MG/DL (0.2-1.0); BLOOD UREA NITROGEN 11 mg/dL (7-18); CALCIUM 8.4 MG/DL (8.5-10.1); CARBON DIOXIDE 30 MMOL/L (21-32); CHLORIDE 105 MMOL/L (98-107); CREATININE 0.7 MG/DL (0.55-1.30); POTASSIUM 3.4 MMOL/L (3.5-5.1); SODIUM 141 MMOL/L (136-145)
[2018-06-08] MEDS: Vancomycin 750 MG in NS 275 ML IVPB SCH (07:53)
[2018-06-08 08:00] VITALS: BP 165/93
[2018-06-08] MEDS: levETIRAcetam 500mg/5ml Liquid GT SCH (09:10)
[2018-06-08] MEDS: Heparin 5000 units/ml inj SUBQ SCH (09:12)
[2018-06-08 09:24] LABS: BASOPHILS % (AUTO) 0.9 % (0.0-2.0); EOSINOPHILS % (AUTO) 2.3 % (0.0-3.0); HEMATOCRIT 30.5 % (42.0-52.0); HEMOGLOBIN 9.4 G/DL (14.2-18.0); LYMPHOCYTES % (AUTO) 25.5 % (20.0-45.0); MEAN CORPUSCULAR VOLUME 78 FL (80-99); MONOCYTES % (AUTO) 8.3 % (1.0-10.0); PLATELET COUNT 256 K/UL (150-450); RED BLOOD COUNT 3.89 M/UL (4.70-6.10); RED CELL DISTRIBUTION WIDTH 19.8 % (11.6-14.8); WHITE BLOOD COUNT 6.6 K/UL (4.8-10.8)
--- NOTE | 2018-06-08 09:48 | NUR ---
RADIOLOGY DEPT., CHEST X-RAY COMPLETED.-P.DYE
--- NOTE | 2018-06-08 11:02 | NUR ---
RD ASSESSMENT & RECOMMENDATIONS SEE CARE ACTIVITY FOR COMPLETE ASSESSMENT DAILY ESTIMATED NEEDS: Needs based on DM, wound, critical care 68.6kg adj 22-30 kcals/kg 5160-3530 total kcals 1.25-2 g protein/kg 86-137 g total protein 25-30 mL/kg 0557-8445 total fluid mLs NUTRITION DIAGNOSIS: 1) Swallowing difficulty r/t respiratory status as evidenced by pt is vent dep via trach, on GT feeds 2) Altered nutrition related lab values r/t diabetes as evidenced by elev Uglu on adm (4+), elev BG (200's-400's -> 170 285 improved) and elev accu checks (200's-300's-> 148-257 improved). 3) Increased kcal and pro needs r/t wound healing as evidenced by pt w/ multiple DTPI's and partial thickness wounds. CURRENT TF: Glucerna 1.2 @55ml/hr x24 hrs ENTERAL NUTRITION RECOMMENDATIONS: Glucerna 1.2 @55ml x24 hrs + Prosource x1 pack daily to provide 1320ml, 1584 kcal, 79g + 11g pro, 1063ml free H2O - Maintain current rate @55ml/hr - *Add Prosource 1 pack daily to better meet est pro needs* - HOB over 30 degrees, flush per MD ADDITIONAL RECOMMENDATIONS: 1) Monitor BGs closely- improving at this time -> consider long acting insulin 2) Calibrated bed scale wts (added P200 mattress + pump) 3) Wound care: PIPE BID + VIT C 250mg daily 4) Monitor lytes daily, replete as needed (low K) 5) Increase water flushes-> Na trending back up
[2018-06-08] MEDS ORDERED: FLUCONAZOLE100 MG ORAL (11:12)
[2018-06-08] MEDS ORDERED: VANCOMYCIN500 MG/100 IV (11:16)
[2018-06-08] MEDS ORDERED: MEROPENEM1 GM IV (11:16)
--- NOTE | 2018-06-08 11:18 | Pulmonolgy Critical Care Note ---
Critical Care - Asmt/Plan Problems: (1) Acute on chronic respiratory failure (2) Sepsis (3) Nosocomial pneumonia (4) Severe sepsis (5) Pneumonia (6) Vegetative state (7) Contracture of joint of multiple sites (8) Chronic respiratory failure (9) Diabetes mellitus (10) Cerebrovascular accident (CVA) Respiratory: monitor respiratory rate, adjust FIO2, CXR Cardiac: continue to monitor HR/BP Renal: F/U I&O, keep IV fluid, check electrolytes Infectious Disease: check cultures Gastrointestinal: continue feedings/current rate Endocrine: monitor blood sugar, check TSH Hematologic: transfuse if hgb<8.5 Neurologic: PRN Ativan, keep patient comfortable Prophylaxis: Protonix, Heparin Notes Reviewed: energy project manager, cardio Discussed with: nurses, consultants, skilled nursing case managermanager dental - Objective Last 24 Hour Vital Signs Date Time Temp Pulse Resp B/P (MAP) Pulse Ox O2 Delivery O2 Flow Rate FiO2 06/08/18 09:09 64 16 40 06/08/18 08:00 72 06/08/18 08:00 98.1 73 16 165/93 (117) 98 06/08/18 08:00 Mechanical Ventilator 06/08/18 08:00 40 06/08/18 07:25 68 16 40 06/08/18 05:42 161/80 06/08/18 05:05 61 19 Mechanical Ventilator 40 06/08/18 05:05 61 19 40 06/08/18 04:00 98.5 64 17 161/80 (107) 98 06/08/18 04:00 66 06/08/18 04:00 40 06/08/18 04:00 Mechanical Ventilator 06/08/18 03:04 60 19 40 06/08/18 01:19 66 19 40 06/08/18 00:00 98.7 62 17 156/76 (102) 98 06/08/18 00:00 60 06/08/18 00:00 Mechanical Ventilator 06/08/18 00:00 40 06/07/18 23:21 65 14 40 06/07/18 22:23 153/80 06/07/18 21:17 58 15 40 06/07/18 20:27 166/80 06/07/18 20:00 40 06/07/18 20:00 Mechanical Ventilator 06/07/18 20:00 98.8 64 17 166/80 (108) 99 06/07/18 20:00 63 06/07/18 19:28 61 18 40 06/07/18 16:46 68 18 40 06/07/18 16:04 63 06/07/18 16:00 Mechanical Ventilator 06/07/18 16:00 98.8 68 19 163/81 (108) 98 06/07/18 16:00 40 06/07/18 15:06 64 16 40 06/07/18 14:54 178/86 06/07/18 13:19 63 06/07/18 12:46 174/78 06/07/18 12:40 60 17 40 06/07/18 12:00 98.8 61 28 174/87 (116) 100 06/07/18 12:00 Mechanical Ventilator 06/07/18 12:00 40 Status: obtunded Condition: critical HEENT: atraumatic Neck: full ROM Lungs: chest wall tender Heart: HR/BP stable Abdomen: soft, non-tender, feeding tube Extremities: no C/C/E Accucheck: 196 Critical Care - Subjective FI02: 40 Vent Support Breath Rate: 10 Vent Support Mode: AC Vent Tidal Volume: 500 Sputum Amount: Moderate PEEP: 5.0 PIP: 22 Tube Feeding Amount: 65 I&O: Intake and Output 06/07/18 06/08/18 19:00 07:00 Intake Total 1255.000 ml 1405.000 ml Output Total 1002 ml Balance 253.000 ml 1405.000 ml Free Water 200 ml 150 ml IV Total 275.000 ml 475.000 ml Tube Feeding 780 ml 780 ml Output Urine Total 1000 ml Stool Total 2 ml # Bowel Movements 1 Labs: Laboratory Tests Test 06/08/18 06:50 06/08/18 09:05 Sodium Level 141 MMOL/L (136-145) Potassium Level 3.4 MMOL/L (3.5-5.1) L Chloride Level 105 MMOL/L (98-107) Carbon Dioxide Level 30 MMOL/L (21-32) Anion Gap 6 mmol/L (5-15) Blood Urea Nitrogen 11 mg/dL (7-18) Creatinine 0.7 MG/DL (0.55-1.30) Estimat Glomerular Filtration Rate > 60 mL/min (>60) Glucose Level 169 MG/DL (74-106) H Calcium Level 8.4 MG/DL (8.5-10.1) L Magnesium Level 2.0 MG/DL (1.8-2.4) Total Bilirubin 0.2 MG/DL (0.2-1.0) Aspartate Amino Transf (AST/SGOT) 13 U/L (15-37) L Alanine Aminotransferase (ALT/SGPT) 13 U/L (12-78) Alkaline Phosphatase 81 U/L (46-116) Pro-B-Type Natriuretic Peptide 3129 pg/mL (0-125) H Total Protein 6.8 G/DL (6.4-8.2) Albumin 1.8 G/DL (3.4-5.0) L Globulin 5.0 g/dL Albumin/Globulin Ratio 0.4 (1.0-2.7) L Vancomycin Level Trough 15.8 ug/mL (5.0-12.0) H White Blood Count 6.6 K/UL (4.8-10.8) Red Blood Count 3.89 M/UL (4.70-6.10) L Hemoglobin 9.4 G/DL (14.2-18.0) L Hematocrit 30.5 % (42.0-52.0) L Mean Corpuscular Volume 78 FL (80-99) L Mean Corpuscular Hemoglobin 24.2 PG (27.0-31.0) L Mean Corpuscular Hemoglobin Concent 30.9 G/DL (32.0-36.0) L Red Cell Distribution Width 19.8 % (11.6-14.8) H Platelet Count 256 K/UL (150-450) Mean Platelet Volume 7.6 FL (6.5-10.1) Neutrophils (%) (Auto) 63.0 % (45.0-75.0) Lymphocytes (%) (Auto) 25.5 % (20.0-45.0) Monocytes (%) (Auto) 8.3 % (1.0-10.0) Eosinophils (%) (Auto) 2.3 % (0.0-3.0) Basophils (%) (Auto) 0.9 % (0.0-2.0) Yomi Odom MD Jun 08, 2018 11:18
--- NOTE | 2018-06-08 11:23 | Diagnostic Imaging Report ---
Indication: Dyspnea Technique: One view of the chest Comparison: 06/06/2017 Findings: Left-sided pleural effusion and hazy airspace opacity are unchanged. Right lung and pleural space remain clear. Tracheostomy, left arm PICC remain Impression: Unchanged, over 2 days, findings as above.
[2018-06-08 12:00] VITALS: BP 180/83
[2018-06-08] MEDS: HydrALAZINE 25mg tab ORAL PRN (12:13)
--- NOTE | 2018-06-08 13:22 | NUR ---
DISCHARGE PLANNING PT DC TO [facility] [place] ROOM 17B SKILLED T- [facility] PLACED ON WILL CALL
[2018-06-08 16:00] VITALS: BP 173/86
--- NOTE | 2018-06-08 16:35 | NUR ---
NURSE NOTES: Report given to Deanne Arteaga RN wind operations supervisor, at [facility]. Patient due for pick-up by [facility] at 17:00
--- NOTE | 2018-06-08 16:39 | General Progress Note ---
Assessment/Plan Assessment: Assessment and Recs: # Anemia of chronic disease due to underlying chronic medical issues, multifactorial --> Anemia workup has been ordered, rule out gi bleed, it has been reviewed --> No evidence of hemolysis is noted, peripheral smear has been reviewed. --> Hgb goal >7. Transfuse prn --> Epogen or iron at this time is not particularly indicated --> Medications have been reviewed --> evaluate with Gi team prn --> hgb7.6-->8.3-->7.8-->8,5-->8.9-->9.4-->9 # Leukocytosis/Elevated white blood cell count, unspecified likely related to underlying stress reaction, smoking v more likely infection (PNA) --> have reviewed peripheral smear and bandemia/neutrophilia noted --> continue antibiotics if they have been started by ID team --> monitor for resolution, 19k-->13k-->10k-->8k # Acute on chronic respiratory failure s/p trach --> on abx as per id --> pulm//cc on the case for management as well # Nosocomial pneumonia --> s/p abx treatment # Severe sepsis w/ pna --> on abx # Cerebrovascular accident (CVA) --> asa and statin # Vegetative state # Contracture of joint of multiple sites --. continue to persist The timing of this note does not necessarily reflect the time of the patient was seen. Greatly appreciate consultation! Subjective Allergies: Coded Allergies: No Known Allergies (Unverified , 05/27/18) Subjective 05/29: midline was leaking better, now in better position, no complaints 05/31: no major duress, hgb 8.3, no bleeding reported 06/01: remains obtunded, no night sweats, seen by endo 06/02: no events to report, is bradycardic, asymptomatic 06/03: abx have been changed to toni, vanc, diflucan 06/04: is on vanc/toni/flucon, spiked yesterday, seenby id 06/05: no events, on abx, cbc has been reviewed, hgb 9.4 06/07: no events to report, no fevers or chills, on abx as per iD 06/08: planning for dc today, no new events, cbc reviewed Objective Last 24 Hour Vital Signs Date Time Temp Pulse Resp B/P (MAP) Pulse Ox O2 Delivery O2 Flow Rate FiO2 06/08/18 16:00 40 06/08/18 16:00 98.1 59 16 173/86 (115) 100 06/08/18 16:00 Mechanical Ventilator 06/08/18 15:19 60 06/08/18 14:52 62 18 40 06/08/18 14:04 174/83 06/08/18 13:02 63 18 40 06/08/18 12:13 180/83 06/08/18 12:00 40 06/08/18 12:00 98.1 57 16 180/83 (115) 99 06/08/18 12:00 Mechanical Ventilator 06/08/18 11:25 66 06/08/18 11:02 70 20 40 06/08/18 09:09 64 16 40 06/08/18 08:00 72 06/08/18 08:00 98.1 73 16 165/93 (117) 98 06/08/18 08:00 Mechanical Ventilator 06/08/18 08:00 40 06/08/18 07:25 68 16 40 06/08/18 05:42 161/80 06/08/18 05:05 61 19 Mechanical Ventilator 40 06/08/18 05:05 61 19 40 06/08/18 04:00 98.5 64 17 161/80 (107) 98 06/08/18 04:00 66 06/08/18 04:00 40 06/08/18 04:00 Mechanical Ventilator 06/08/18 03:04 60 19 40 06/08/18 01:19 66 19 40 06/08/18 00:00 98.7 62 17 156/76 (102) 98 06/08/18 00:00 60 06/08/18 00:00 Mechanical Ventilator 06/08/18 00:00 40 06/07/18 23:21 65 14 40 06/07/18 22:23 153/80 06/07/18 21:17 58 15 40 06/07/18 20:27 166/80 06/07/18 20:00 40 06/07/18 20:00 Mechanical Ventilator 06/07/18 20:00 98.8 64 17 166/80 (108) 99 06/07/18 20:00 63 4/14/19 19:28 61 18 40 06/07/18 16:46 68 18 40 Intake and Output 06/07/18 06/08/18 18:59 06:59 Intake Total 1255.000 ml 1405.000 ml Output Total 1002 ml Balance 253.000 ml 1405.000 ml Free Water 200 ml 150 ml IV Total 275.000 ml 475.000 ml Tube Feeding 780 ml 780 ml Output Urine Total 1000 ml Stool Total 2 ml # Bowel Movements 1 Laboratory Tests 06/08/18 06:50: Sodium Level 141, Potassium Level 3.4L, Chloride Level 105, Carbon Dioxide Level 30, Anion Gap 6, Blood Urea Nitrogen 11, Creatinine 0.7, Estimat Glomerular Filtration Rate > 60, Glucose Level 169H, Calcium Level 8.4L, Magnesium Level 2.0, Total Bilirubin 0.2, Aspartate Amino Transf (AST/SGOT) 13L , Alanine Aminotransferase (ALT/SGPT) 13, Alkaline Phosphatase 81, Pro-B-Type Natriuretic Peptide 3129H, Total Protein 6.8, Albumin 1.8L, Globulin 5.0, Albumin/Globulin Ratio 0.4L, Vancomycin Level Trough 15.8H 06/08/18 09:05: White Blood Count 6.6, Red Blood Count 3.89L, Hemoglobin 9.4L, Hematocrit 30.5L , Mean Corpuscular Volume 78L, Mean Corpuscular Hemoglobin 24.2L, Mean Corpuscular Hemoglobin Concent 30.9L, Red Cell Distribution Width 19.8H, Platelet Count 256, Mean Platelet Volume 7.6, Neutrophils (%) (Auto) 63.0, Lymphocytes (%) (Auto) 25.5, Monocytes (%) (Auto) 8.3, Eosinophils (%) (Auto) 2.3, Basophils (%) (Auto) 0.9 Height (Feet): 5 Height (Inches): 6.00 Weight (Pounds): 217 Objective PE: Vitals: reviewed, stable General Appearance: NAD, vegetative state HEENT: normocephalic, atraumatic Neck: non-tender, normal alignment Respiratory/Chest: crackles b/l noted, ++ trach/vent Cardiovascular/Chest: normal peripheral pulses, normal rate Abdomen: normal bowel sounds, soft, nontender ++ peg Extremities: normal range of motion Trey Tripathi MD Jun 08, 2018 16:39
[2018-06-08] MEDS ORDERED: NS 275ml ONE (17:20)
--- NOTE | 2018-06-08 17:21 | NUR ---
Discharge: Patient is being discharged from medical care. Awake, alert, nonverbal. Left upper arm PICC left in place d/t patient being discharged with IV antibiotics in [facility]. Transported out by [facility] in stable condition. No belongings.
[2018-06-08] MEDS ORDERED: Lisinopril 20mg tab GT SCH (21:00)
--- NOTE | 2018-06-09 01:30 | Progress Note ---
DATE: 06/08/2018 CARDIOLOGY PROGRESS NOTE SUBJECTIVE: This patient is without distress. On ventilator support. Secretions have decreased. Heart rate is stable with sinus rhythm and rare asymptomatic bradycardia. OBJECTIVE: VITAL SIGNS: Blood pressure 161/80, heart rate 68, and respiratory rate 16. LUNGS: Coarse breath sounds. Scattered rhonchi. HEART: Regular rhythm and rate. Normal S1, S2. ABDOMEN: Soft. G-tube intact. EXTREMITIES: No edema. LABORATORY DATA: White count 6.6 and hemoglobin 9.4. Potassium 3.4. Magnesium 2.0. Pro-natriuretic peptide is 3100. Chest x-ray reveals left-sided pleural effusion with airspace disease. IMPRESSION: 1. Healthcare-acquired pneumonia. 2. Parapneumonic effusion. 3. Ventilator-dependent respiratory failure. 4. Chronic diastolic congestive heart failure. 5. Sinus node disease with asymptomatic bradycardia. 6. Bacteremia due to PICC line, has resolved with suggesting low likelihood of endocarditis. 7. Hypertensive heart disease. PLAN: 1. Ventilator support. 2. Periodic thoracentesis may be required. 3. Continue current antihypertensives. May need to advance further if blood pressure parameters do not continue to rise. 4. Antimicrobials per Infectious Disease [facility] consultant. 5. Would consider transesophageal echocardiogram only for recurring bacteremia. 6. No role for pacemaker and would avoid beta-blockers. Otto Condon M.D. DR: HAY JOB#: [id number] CC:
--- NOTE | 2018-06-10 08:14 | Discharge Summary ---
Discharge Summary Discharge Summary _ DATE OF ADMISSION: 05/27/2018 DATE OF DISCHARGE: 06/08/2018 DISCHARGED BY: Dr. Weaver REASON FOR ADMISSION: 68 years old male with past medical history of recent cerebrovascular accident , respiratory failure, status post tracheostomy, chronically ventilator dependent, dysphagia, G-tube feeding, hypertension, diabetes mellitus, hyperlipidemia, bedridden, presented to emergency room for evaluation due to high fever and elevated glucose. Patient was treated at the facility with Rocephin for UTI. Patient by himself was nonverbal and unable to provide any information. Upon evaluation vital signs revealed fever of 102.9, tachypnea and tachycardia. Laboratory workup revealed leukocytosis with WBC 19.8, hemoglobin 8.7, hematocrit 28. Potassium 3.0. BUN 28, creatinine 1.3. Glucose 465. Stable anion gap. Lactic acid 2.6. Stable LFT. Urinalysis did not reveal evidence of UTI. ABG was stable on current settings. Chest x-ray revealed mild cardiomegaly, left pleural effusion and possible left sided diffuse parenchymal consolidation. EKG revealed sinus tachycardia, no acute ischemic changes. Septic workup initiated in the emergency department. Patient received fluid challenge ,lactic acid improved. Patient pancultured and started on empiric antibiotic. Blood pressure remained stable. Patient admitted to direct observational unit for further management. CONSULTANTS: repack room worker pulmonary Dr. Odom ID specialist lab engineer/oncologist Dr. Tripathi [place] [facility] [employer] [facility] COURSE: Patient admitted to [facility]. Ventilator support and tracheostomy care provided. Ventilator settings titrated as needed. Patient follow-up with chest x-ray. Patient started on empiric antibiotics. Infectious disease specialist and wood cutter closely followed. PICC line was placed due to poor peripheral IV access. Blood culture initially revealed Staphylococcus hominis and Staphylococcus coagulase negative. Sputum culture grew Providencia. Repeated blood culture revealed Staph aureus. Surveillance blood culture on 05/31 and 06/02 were negative. Sputum culture on 06/03 still revealed Providencia with heavy growth. Last blood culture on 06/03 was negative. Urine culture on 06/03 revealed Audra. Antibiotic regimen was optimized as per infectious disease specialist. Echocardiogram revealed no evidence of discrete vegetation. Patient was followed-up with chest x-ray, which revealed large left pleural effusion. Patient subsequently undergone thoracentesis of left pleural effusion which yielded 1 L of serosanguineous fluid. Pathology of pleural fluid revealed no evidence of malignant cells. Mesothelial cells and rare inflammatory cells noted. Pleural fluid culture was negative. Pleural fluid analysis was unremarkable. Last chest x-ray demonstrated still demonstrated left-sided pleural effusion and hairy airspace opacity. Patient will continue with antibiotic regimen at the facility to complete the course, as specified in medication reconciliation list S per infectious disease specialist recommendation. Steel Layer followed for initial hyperglycemia. Blood sugar was managed as per wire threader recommendation. Hemoglobin A1c 8.7. Anti-glycemic regimen was further optimized ,while in the hospital ,based on blood glucose results. Patient initially was on Levemir and sliding scale of insulin. After blood sugar normalized, treatment changed to short acting NovoLog every 6 hours along with additional sliding scale of insulin as needed. Soccer Referee followed. Echocardiogram revealed normal left ventricular chamber size, systolic function and wall motion to the extent visualized with ejection fraction estimated to be 55%. No evidence of left ventricular hypertrophy. No evidence of pericardial effusion. Good morning no evident discrete vegetation seen. Right ventricular systolic pressure of 25. Soccer Referee recommended to consider transesophageal echocardiogram only for recurring bacteremia due to low suspicion for endocarditis. Lipid panel was stable. Blood pressure was managed with current antihypertensive regimen. Patient had sinus node disease with asymptomatic bradycardia , per repack room worker no role of pacemaker in this setting. Soccer Referee recommended to avoid beta-blockers . Patient had chronic diastolic congestive heart failure, no evidence of decompensation. Band Splitter /oncologist followed. Hemoglobin and hematocrit were closely monitored with goal to keep hemoglobin above 7. Patient undergone a total of 3 units of packed red blood cell transfusion, while in the hospital. Anemia workup revealed evidence of anemia of chronic disease due to underlying chronic medical issue, multifactorial. No evidence of hemolysis. Per lab engineer, Epogen or iron at this time were not particularly indicated. Prior to discharge hemoglobin 9.4, hematocrit 30.5. Stool for occult blood was positive. CEA was a mild elevation. May consider GI evaluation as outpatient. However in this setting, given overall poor prognosis and multiply chronic problems, unlikely to benefit patient. Strict aspiration precautions maintained. G-tube feeding continued. Patient was able to tolerate G-tube feeding. Aerial Photographer recommendation implemented in plan of care to improve nutrition. Patient was at high nutritional risk as per physician internist assessment. Renal parameters and electrolytes were closely monitored. Electrolytes corrected as needed. Nephrotoxins were avoided. Prior to discharge BUN from 28 down to 11 and creatinine from 1.3 down to 0.7. Potassium replaced and remain stable. CT of the head revealed no acute intracranial pathology, but demonstrated old infarct in the left posterior parietal occipital region with subtle malacia. Age-related cerebral atrophy with chronic small vessel ischemic disease noted. Seizure precaution maintained. Keppra continued. No evidence of seizure activity while in the hospital DVT prophylaxis provided. Supportive care provided. Bowel regimen instituted. Patient clinically stabilized: fever and leukocytosis resolved, no signs of respiratory distress. Patient was stable for discharge back to subacute [facility] facility for continuation of care. 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 DISCHARGE INSTRUCTIONS: Patient was discharged to subacute [facility] facility. Follow up with medical doctor at the facility. I have been assigned to dictate discharge summary for this account. I was not involved in the patient's management. Brittani Baptiste NP Jun 10, 2018 08:14
== END 2018-06-08 17:21 | DRG 870 ==
LOC: EDBD 07:36 → EMR 08:07 → EDBEDREQ 09:06 → 2W 09:40 → EDBEDREQ 10:21
PROC: 5A1955Z Respiratory Ventilation, Greater than 96 Consecutive Hours (ICD-10-PCS; principal; 2018-05-27)
PROC: 05H733Z Insertion of Infusion Device into Right Axillary Vein, Percutaneous Approach (ICD-10-PCS; 2018-05-28)
PROC: B54MZZA Ultrasonography of Right Upper Extremity Veins, Guidance (ICD-10-PCS; 2018-05-28)
PROC: B548ZZA Ultrasonography of Superior Vena Cava, Guidance (ICD-10-PCS; 2018-05-29)
PROC: 02HV33Z Insertion of Infusion Device into Superior Vena Cava, Percutaneous Approach (ICD-10-PCS; 2018-05-29)
PROC: 0W9B3ZZ Drainage of Left Pleural Cavity, Percutaneous Approach (ICD-10-PCS; 2018-06-02)
DX: A41.01 Sepsis due to Methicillin susceptible Staphylococcus aureus (principal); J96.20 Acute and chronic respiratory failure, unspecified whether with hypoxia or hypercapnia; R65.21 Severe sepsis with septic shock; J15.8 Pneumonia due to other specified bacteria; R40.3 Persistent vegetative state; Z99.11 Dependence on respirator [ventilator] status; J90 Pleural effusion, not elsewhere classified; N39.0 Urinary tract infection, site not specified; E11.65 Type 2 diabetes mellitus with hyperglycemia; Z93.0 Tracheostomy status; Z93.1 Gastrostomy status; Z86.73 Personal history of transient ischemic attack (TIA), and cerebral infarction without residual deficits; E66.01 Morbid (severe) obesity due to excess calories; Z68.35 Body mass index [BMI] 35.0-35.9, adult; E78.5 Hyperlipidemia, unspecified; Z74.01 Bed confinement status; M24.50 Contracture, unspecified joint; I11.9 Hypertensive heart disease without heart failure; D64.9 Anemia, unspecified; I49.5 Sick sinus syndrome; R00.1 Bradycardia, unspecified; F45.8 Other somatoform disorders; G40.909 Epilepsy, unspecified, not intractable, without status epilepticus; Y95 Nosocomial condition
CPT/HCPCS: 36415; 36569; 36600; 70450; 71045; 74177; 76700; 76937; 76942; 80048; 80053; 80061; 80202; 81003; 82270; 82378; 82550; 82728; 82746; 82803; 82962; 83036; 83540; 83550; 83605; 83615; 83690; 83735; 83880; 84100; 84443; 84484; 85007; 85025; 85060; 85384; 85610; 85651; 85730; 86850; 86900; 86901; 86920; 87040; 87070; 87081; 87086; 87181; 87205; 88104; 89051; 93005; 93306; 94002; 94003; 94664; 96361; 96365; 96368; 99291; J1815; J7620; J8499

== ENCOUNTER 2019-07-25 18:15 | Inpatient (IN) | payer MEDICARE, MEDICAID ==
[~2019-07-25] VITALS: Ht 172.7 cm; Wt 97.7 kg
[~2019-07-25 18:15] MED LIST: ACETAMINOPHEN325 M1 ORAL; ASPIRIN-LOW81 MG ORAL; ATORVASTATIN CA20 MG GT; BACLOFEN5 MG GT; CLONIDINE HCL0.1 MG PO; COLACE100 MG GT; FAMOTIDINE10 MG GT; FAMOTIDINE20 MG ORAL; FERROUS SU15 MG/1 M1 GT; FERROUS SULFAT325 MG ORAL; FERROUS SULFAT500 G1 MC; FLUCONAZOLE100 MG ORAL; KEPPRA LIQ100 MG/1 M GT; LISINOPRIL20 MG GT; MEROPENEM1 GM IV; METFORMIN HCL5000 GM MC; METFORMIN500 MG/5 M GT; MULTI-DELYN237 ML GT; MULTI-VITAMIN-1 EACH GT; PRO-STAT LIQUID30 ML GT; SENNA S TABLET1 EAC1 PO; SENNA8.6 M2 GT; THEOPHYLLI80 MG/151 GT; TOPIRAMATE100 MG GT; TRADJENTA5 MG PO; TYLENOL EXTRA500 MG ORAL; VALPROIC A250 MG/5 M PO; VALPROIC ACID1 ML GT; VANCOMYCIN500 MG/100 IV; VENTOLIN HFA18 GM INH; VITAMIN C500 M1 GT; VITAMIN D400 INTLU GT; ZOFRAN4 M1 IM; ZOFRAN4 M3 GT
[2019-07-25] MEDS ORDERED: VITAMIN C500 M1 GT (18:39)
[2019-07-25] MEDS ORDERED: VITAMIN D310 MC1 GT (18:39)
[2019-07-25] MEDS ORDERED: ZOSYN 3.373.375 GM/1 IVPB (18:39)
[2019-07-25] MEDS ORDERED: HYDRALAZINE HCL50 MG GT (18:39)
[2019-07-25] MEDS ORDERED: ALBUTEROL SULF8.5 G1 INH (18:40)
--- NOTE | 2019-07-25 18:40 | NUR ---
RESPIRATORY NOTE: Pt BIBA in ED. Placed pt on same vent settings from facility: AC 10, 500VT, 40%, PEEP +5. Pt is trach-dependent w/ a cuffed, Portex 7 tube. Pt awake/disoriented. B/S villa. rhonchi, sxn small amounts of thick, white to pale-yellow secretions. Vent plugged into red outlet, ambubag at bedside. Pt in no apparent distress at this time. Will continue plan of care.
[2019-07-25 18:58] LABS: APPEARANCE,URINE CLEAR; BILIRUBIN, URINE NEGATIVE (NEGATIVE); COLOR,URINE PALE YELLOW; GLUCOSE, URINE (UA) NEGATIVE (NEGATIVE); KETONES,URINE 1+ (NEGATIVE); LEUKOCYTE ESTERASE ,URINE 1+ (NEGATIVE); NITRITE,URINE NEGATIVE (NEGATIVE); PH,URINE 5 (4.5-8.0); PROTEIN,URINE 2+ (NEGATIVE); UROBILINOGEN,URINE NORMAL MG/DL (0.0-1.0)
[2019-07-25 18:59] VITALS: BP 140/70
--- NOTE | 2019-07-25 19:00 | NUR ---
ED Nurse Note: MRSA, VRE, CRE swabs sent down
[2019-07-25 19:01] LABS: BASOPHILS % (AUTO) 0.6 % (0.0-2.0); EOSINOPHILS % (AUTO) 5.6 % (0.0-3.0); HEMATOCRIT 29.5 % (42.0-52.0); HEMOGLOBIN 8.7 G/DL (14.2-18.0); LYMPHOCYTES % (AUTO) 19.8 % (20.0-45.0); MEAN CORPUSCULAR VOLUME 86 FL (80-99); MONOCYTES % (AUTO) 11.2 % (1.0-10.0); NEUTROPHILS % (AUTO) 62.8 % (45.0-75.0); PLATELET COUNT 169 K/UL (150-450); RED BLOOD COUNT 3.44 M/UL (4.70-6.10); RED CELL DISTRIBUTION WIDTH 16.8 % (11.6-14.8); WHITE BLOOD COUNT 10.2 K/UL (4.8-10.8)
--- NOTE | 2019-07-25 19:07 | NUR ---
ED Nurse Note: Patient was brought in by HARJIT from [facility] due to cellulitis on Rt arm and body temp 99.4F since yesterday. Patient is vent dependent, AAO x0, presented with dark red swollen right arm. Blood and urine specimen collected sent down. Crow catheter 16F was placed at 1845.
[2019-07-25 19:11] LABS: ANION GAP 12 mmol/L (5-15); BLOOD UREA NITROGEN 23 mg/dL (7-18); CARBON DIOXIDE 28 MMOL/L (21-32); CHLORIDE 104 MMOL/L (98-107); POTASSIUM 3.2 MMOL/L (3.5-5.1); SODIUM 144 MMOL/L (136-145)
[2019-07-25 19:23] LABS: ALANINE AMINOTRANSFERASE 43 U/L (12-78); ALBUMIN 2.1 G/DL (3.4-5.0); ALBUMIN/GLOBULIN RATIO 0.5 (1.0-2.7); ALKALINE PHOSPHATASE 65 U/L (46-116); ASPARTATE AMINO TRANSFERASE 30 U/L (15-37); BILIRUBIN,TOTAL 0.2 MG/DL (0.2-1.0)
[2019-07-25] MEDS ORDERED: Piperacillin/Tazobactam 3.375 GM in NS 110 ML IVPB ONE (19:45)
[2019-07-25] MEDS ORDERED: Sodium Chloride 2,200 ML IVLG ONE (19:45)
--- NOTE | 2019-07-25 19:54 | Diagnostic Imaging Report ---
EXAM: XR Chest, 1 View CLINICAL HISTORY: AMS TECHNIQUE: Frontal view of the chest. COMPARISON: 06/08/18 FINDINGS: Lungs: Retrocardiac atelectasis with possible tiny left pleural effusion, correlate to exclude pneumonia. Low lung volumes with bronchovascular crowding. Pleural space: No pneumothorax. Heart: Cardiomegaly. Mediastinum: Unremarkable. Bones/joints: Unremarkable. Tubes, lines and devices: Unchanged tracheostomy. Other findings: Operative left neck findings. IMPRESSION: 1. Unchanged tracheostomy. 2. Retrocardiac atelectasis with possible tiny left pleural effusion, correlate to exclude pneumonia. 3. Cardiomegaly. 4. Low lung volumes with bronchovascular crowding. 5. If there is continued concern, consider frontal and lateral chest radiographs or CT.
--- NOTE | 2019-07-25 20:00 | Emergency Room Report ---
History of Present Illness General Chief Complaint: General Complaint Source: Medical Record, EMS Present Illness HPI 69-year-old male presents with for evaluation of fever. [facility] Has trach. Vent dependent. Noticed by nursing staff yesterday redness on the right arm. Low-grade temp. Temp 99.3 in triage. Patient is nonverbal and unable to provide any additional history at this time. No signs of distress. No nausea or vomiting. No cough or runny nose or congestion. No other aggravating relieving factors. No other associated symptoms Allergies: Coded Allergies: No Known Allergies (Unverified , 05/27/18) COVID-19 Screening Contact w/high risk pt: No Recent Travel to affected area: No Experienced COVID-19 symptoms?: Yes COVID-19 symptoms experienced: Fever (T>100.4F or >38C) COVID-19 Testing performed GUIDE TRAVEL: No Patient History Past Medical History: DM, CHF, COPD, CVA/TIA, dementia, other - anoxic brain injury Pertinent Family History: none Social History: Denies: smoking, alcohol use, drug use Immunizations: UTD Reviewed Nursing Documentation: PMH: Agreed; PSxH: Agreed Nursing Documentation-PMH Past Medical History: No History, Except For Hx Cardiac Problems: Yes - bradycardia, heart failure, anemia Hx Hypertension: Yes Hx COPD: Yes Hx Diabetes: Yes - DM 2 Hx Cancer: No Hx Gastrointestinal Problems: Yes - gastrostomy tube Hx Neurological Problems: Yes - anoxic brain damage, enecephalopathy, quadraplegia Hx Cerebrovascular Accident: Yes Hx Transient Ischemic Attacks: Yes Hx Dementia: Yes Hx Seizures: Yes Hx Epilepsy: Yes Hx Dysphasia: Yes Hx Weakness: Yes Review of Systems All Other Systems: limited Physical Exam Vital Signs Date Time Temp Pulse Resp B/P (MAP) Pulse Ox O2 Delivery O2 Flow Rate FiO2 07/25/19 18:16 99.3 67 18 128/64 (85) 98 Mechanical Ventilator 07/25/19 18:38 40 Sp02 EP Interpretation: reviewed, normal General Appearance: no apparent distress, GCS 15, non-toxic, other - nonverbal Head: normocephalic, atraumatic Eyes: bilateral eye normal inspection, bilateral eye PERRL ENT: hearing grossly normal, normal pharynx, no angioedema, normal voice Neck: full range of motion, supple/symm/no masses, tracheotomy Respiratory: chest non-tender, lungs clear, normal breath sounds, speaking full sentences Cardiovascular #1: regular rate, rhythm, no edema Cardiovascular #2: 2+ carotid (R), 2+ carotid (L), 2+ radial (R), 2+ radial (L) , 2+ dorsalis pedis (R), 2+ dorsalis pedis (L) Gastrointestinal: normal bowel sounds, non tender, soft, non-distended, no guarding, no rebound Rectal: deferred Genitourinary: normal inspection, no CVA tenderness Musculoskeletal: back normal, gait/station normal, non-tender Neurologic: other - nonverbal Psychiatric: judgement/insight normal, memory normal, mood/affect normal, no suicidal/homicidal ideation Reflexes: 3+ bicep (R), 3+ bicep (L), 3+ tricep (R), 3+ tricep (L), 3+ knee (R) , 3+ knee (L) Skin: no rash, other - cellulitis R arm Lymphatic: no adenopathy Medical Decision Making Diagnostic Impression: Primary Impression: Cellulitis of right arm Additional Impressions: Severe sepsis Tracheostomy dependence ER Course Hospital Course 69 yo M presents to ED with fever, redness R arm Differential diagnoses include: Pneumonia, UTI, sepsis, dehydration, [place]/ unstable angina Clinical course Patient placed on stretcher. In isolation room. I wore full PPE. On ventilator on nurse monitoring with stable vitals are ED course. After initial history and physical, I ordered labs, IV fluids, EKG, chest x-ray, blood cultures, UA. Labs - no leukocytosis, hb/hct stable, lactic 4.3 CXR - no acute process EKG - NSr, no acute ischemic changes interpeted by me Abx given. Patient has contracted extremities. Anoxic brain injury. Bedbound. Given 30 cc/kg fluid bolus. Concern for possible septic joint. Dr Villareal consulted. case discussed with Dr Weaver and they agreed to admit patient to their service for further care and support I feel this is a highly complex case requiring extensive working including EKG/ Rhythm strip, Xray/CT/US, Blood/urine lab work, repeat exams while in ED, and administration of strong opiates/narcotics for pain control, admission to hospital or close patient follow up. Diagnosis - cellultis of R arm, severe sepsis, tracheostomy dependnece Patient admitted to SDU in serious condition Labs Test 07/25/19 18:30 White Blood Count 10.2 K/UL (4.8-10.8) Red Blood Count 3.44 M/UL (4.70-6.10) Hemoglobin 8.7 G/DL (14.2-18.0) Hematocrit 29.5 % (42.0-52.0) Mean Corpuscular Volume 86 FL (80-99) Mean Corpuscular Hemoglobin 25.4 PG (27.0-31.0) Mean Corpuscular Hemoglobin Concent 29.6 G/DL (32.0-36.0) Red Cell Distribution Width 16.8 % (11.6-14.8) Platelet Count 169 K/UL (150-450) Mean Platelet Volume 10.0 FL (6.5-10.1) Neutrophils (%) (Auto) 62.8 % (45.0-75.0) Lymphocytes (%) (Auto) 19.8 % (20.0-45.0) Monocytes (%) (Auto) 11.2 % (1.0-10.0) Eosinophils (%) (Auto) 5.6 % (0.0-3.0) Basophils (%) (Auto) 0.6 % (0.0-2.0) Urine Color Pale yellow Urine Appearance Clear Urine pH 5 (4.5-8.0) Urine Specific [place] 1.010 (1.005-1.035) Urine Protein 2+ (NEGATIVE) Urine Glucose (UA) Negative (NEGATIVE) Urine Ketones 1+ (NEGATIVE) Urine Blood 1+ (NEGATIVE) Urine Nitrite Negative (NEGATIVE) Urine Bilirubin Negative (NEGATIVE) Urine Urobilinogen Normal MG/DL (0.0-1.0) Urine Leukocyte Esterase 1+ (NEGATIVE) Urine RBC 5-10 /HPF (0 - 0) Urine WBC 2-4 /HPF (0 - 0) Urine Squamous Epithelial Cells Occasional /LPF Urine Calcium Oxalate Crystals Few /LPF (NONE) Urine Bacteria Few /HPF (NONE) Sodium Level 144 MMOL/L (136-145) Potassium Level 3.2 MMOL/L (3.5-5.1) Chloride Level 104 MMOL/L (98-107) Carbon Dioxide Level 28 MMOL/L (21-32) Anion Gap 12 mmol/L (5-15) Blood Urea Nitrogen 23 mg/dL (7-18) Creatinine 1.0 MG/DL (0.55-1.30) Estimat Glomerular Filtration Rate > 60 mL/min (>60) Glucose Level 111 MG/DL (74-106) Lactic Acid Level 4.30 mmol/L (0.4-2.0) Calcium Level 9.0 MG/DL (8.5-10.1) Total Bilirubin 0.2 MG/DL (0.2-1.0) Aspartate Amino Transf (AST/SGOT) 30 U/L (15-37) Alanine Aminotransferase (ALT/SGPT) 43 U/L (12-78) Alkaline Phosphatase 65 U/L (46-116) Pro-B-Type Natriuretic Peptide 934 pg/mL (0-125) Total Protein 6.6 G/DL (6.4-8.2) Albumin 2.1 G/DL (3.4-5.0) Globulin 4.5 g/dL Albumin/Globulin Ratio 0.5 (1.0-2.7) EKG Diagnostic Results Rate: normal Rhythm: NSR ST Segments: no acute changes ASA given to the pt in ED: No Rhythm Strip Diag. Results EP Interpretation: yes Rhythm: NSR, no PVC's, no ectopy Chest X-Ray Diagnostic Results Chest X-Ray Diagnostic Results : Chest X-Ray Ordered: Yes # of Views/Limited/Complete: 1 View Indication: Other EP Interpretation: Yes Interpretation: no pneumothorax, other - atelectasis Impression: Other - atelectasis Electronically Signed by: Electronically signed by Gerald Cabrera MD Last Vital Signs Date Time Temp Pulse Resp B/P (MAP) Pulse Ox O2 Delivery O2 Flow Rate FiO2 07/25/19 18:59 70 21 Mechanical Ventilator 40 07/25/19 18:59 99.3 140/70 98 Status: improved Disposition: ADMITTED INPATIENT Condition: Serious Referrals: Janette Weaver MD (PCP) Gerald Cabrera MD July 25, 2019 20:00
--- NOTE | 2019-07-25 20:09 | NUR ---
ED Nurse Note: Lactic reflex sent to lab.
[2019-07-25 20:27] VITALS: BP 176/94
--- NOTE | 2019-07-25 21:43 | NUR ---
ED Nurse Note: Per tanvir Teixeira for foot IV d/t unable to find good veins on patient. 22g on Left foot established.
--- NOTE | 2019-07-25 21:58 | NUR ---
ED Nurse Note: Report given to MELISA Denton in SDU.
--- NOTE | 2019-07-25 22:10 | NUR ---
TRANSFER TO FLOOR: Patient transferred to SDU as ordered, per ERMD. Report given to MELISA Denton. Patient transported with ACLS protocol on alarm security or surveillance monitor accompanied by 2 RN and RT in stable condition.
--- NOTE | 2019-07-25 22:20 | NUR ---
NURSE NOTES: received pt from KAMILAH Landry RN, pt is awake, confused, and nonverbal. pt response to painful stimuli. O2sat is at 100% no SOB noted. pt has two IV sites, right wrist 24G and left foot 22G are clean, patent, and intact. olmos cath is in place and draining well with gravity. no belonging noted. Gtube site little skin tear noted, sacral open wound, and left lateral foot DTI noted. paperback machine operator on pt. side rails padded. call light within reach. bed at the lowest position, alarmed, and locked. will continue to monitor pt with plan of care.
--- NOTE | 2019-07-25 23:00 | NUR ---
NURSE NOTES: notified Dr. Weaver regarding new admission order, left message regarding Vital sign, 155/89 T 98.9 Hr 69 O2sat 100%. notified regarding abnormal labs potassium 3.1 sodium 144 BUN 23, Lactic acid 4.20 BNP 934 Albumin 2.1
--- NOTE | 2019-07-25 23:01 | NUR ---
NURSE NOTES: will wait for call back from Dr. Weaver for new admission orders.
--- NOTE | 2019-07-25 23:50 | NUR ---
NURSE NOTES: received orders from Dr. Weaver, will noted and carry on.
--- NOTE | 2019-07-25 23:51 | NUR ---
NURSE NOTES: per Dr. Weaver it is okay to keep IV on the left foot and olmos cath. will noted and carry on.
[2019-07-26] VITALS: BP 145/99
[2019-07-26] MEDS: Vancomycin 750 MG in D5W 275 ML IVPB SCH ×2 (02:35→14:21)
[2019-07-26 04:00] VITALS: BP 150/85
[2019-07-26 05:01] LABS: BASOPHILS % (AUTO) 0.5 % (0.0-2.0); HEMATOCRIT 25.4 % (42.0-52.0); HEMOGLOBIN 8.2 G/DL (14.2-18.0); LYMPHOCYTES % (AUTO) 14.2 % (20.0-45.0); MEAN CORPUSCULAR VOLUME 80 FL (80-99); MONOCYTES % (AUTO) 9.1 % (1.0-10.0); NEUTROPHILS % (AUTO) 71.2 % (45.0-75.0); PLATELET COUNT 168 K/UL (150-450); RED CELL DISTRIBUTION WIDTH 14.7 % (11.6-14.8); WHITE BLOOD COUNT 11.1 K/UL (4.8-10.8)
[2019-07-26 05:40] LABS: ANION GAP 8 mmol/L (5-15); BLOOD UREA NITROGEN 21 mg/dL (7-18); CALCIUM 8.4 MG/DL (8.5-10.1); CARBON DIOXIDE 28 MMOL/L (21-32); CHLORIDE 109 MMOL/L (98-107); CREATININE 0.7 MG/DL (0.55-1.30); POTASSIUM 3.2 MMOL/L (3.5-5.1); SODIUM 145 MMOL/L (136-145)
--- NOTE | 2019-07-26 06:30 | NUR ---
NURSE NOTES: notified Dr. tesfaye regarding low potassium 3.2. will wait for call back.
--- NOTE | 2019-07-26 06:32 | NUR ---
NURSE NOTES: left Voice mail to daughter ([email or web address]) to call the hospital for PICC line insertion. will try to contact again later.
--- NOTE | 2019-07-26 07:20 | NUR ---
HAND-OFF: Report given to Adia VINCENT.endorsed plan of care, pt is stable condition
--- NOTE | 2019-07-26 07:20 | NUR ---
NURSE NOTES: Received report from MELISA Morfin. Pt in bed awake, obtunded and unable to make needs known. IV site in right wrist 24G, left foot 22G SL patent and asymptomatic. Side railsx3 up for safety. Bed in lowest position and locked. G-tube intact and patent. HOB elevated with 30 degree. Trach of portex 7 and on vent setting with AC, 10, tv 500, 40% with peep of 5 and pt tolerating well with vent. F/C intact and patent. Will continue plan of care.
[2019-07-26 08:00] VITALS: BP 165/88
[2019-07-26] MEDS ORDERED: Lidocaine 1% Plain 30 ml INJ ONE (08:00)
[2019-07-26] MEDS ORDERED: Heparin1,000 units/500ml Premix(Conc:2 units/ml) IV ONE (08:00)
[2019-07-26 08:06] LABS: ALANINE AMINOTRANSFERASE 33 U/L (12-78); ALKALINE PHOSPHATASE 59 U/L (46-116); ASPARTATE AMINO TRANSFERASE 30 U/L (15-37); BILIRUBIN,DIRECT < 0.1 MG/DL (0.0-0.3); BILIRUBIN,TOTAL 0.2 MG/DL (0.2-1.0)
[2019-07-26] MEDS ORDERED: Lidocaine 1% Plain 30 ml INJ PRN (08:45)
[2019-07-26] MEDS ORDERED: Heparin1,000 units/500ml Premix(Conc:2 units/ml) IV PRN (08:45)
[2019-07-26 08:56] LABS: BILIRUBIN, URINE NEGATIVE (NEGATIVE); COLOR,URINE YELLOW; GLUCOSE, URINE (UA) NEGATIVE (NEGATIVE); KETONES,URINE 1+ (NEGATIVE); LEUKOCYTE ESTERASE ,URINE 3+ (NEGATIVE); NITRITE,URINE NEGATIVE (NEGATIVE); PH,URINE 7 (4.5-8.0); PROTEIN,URINE 2+ (NEGATIVE); UROBILINOGEN,URINE 1 MG/DL (0.0-1.0)
[2019-07-26] MEDS ORDERED: metFORMIN 500mg tab GT SCH (09:00)
[2019-07-26 09:02] LABS: APPEARANCE,URINE SLIGHTLY CLOUDY
[2019-07-26] MEDS: Vitamin D 1000 IU Tab GT SCH (09:50)
[2019-07-26] MEDS: Metoprolol Tartrate 50mg tab ORAL SCH ×2 (09:50→21:02)
[2019-07-26] MEDS: Pantoprazole Inj IVP SCH ×2 (09:50→21:02)
[2019-07-26] MEDS: Heparin 5000 units/ml inj SUBQ SCH ×2 (09:51→21:01)
--- NOTE | 2019-07-26 11:05 | Consultation ---
History of Present Illness General Date patient seen: Jul 26, 2019 Chief Complaint: General Complaint Present Illness HPI 69 year old male with hx of DM, HTN, CVA, contractures, trach, Ventilator dependent and Tube feeding, vegetative state, presented to ER with CC of elevated temperature and right arm cellulitis. Patient is full code. He is bedridden and unable to communicate. All the history was obtained from medical records. He was found to have sepsis, cellulitis and pneumonia.. Pt is admitted to [facility] for further evaluation and treatment. Allergies: Coded Allergies: No Known Allergies (Unverified , 05/27/18) Medication History Scheduled Ascorbic Acid* (Vitamin C*), 500 MG GT DAILY, (Reported) Atorvastatin Calcium* (Atorvastatin Calcium*), 20 MG GT BEDTIME, (Reported) Cholecalciferol (Vitamin D3) (Vitamin D3), 5,000 UNITS GT DAILY, (Reported) Docusate Sodium* (Colace*), 100 MG GT DAILY, (Reported) Famotidine* (Pepcid 20mg tablet*), 20 MG ORAL QHS, (Reported) Ferrous Sulfate* (Ferrous Sulfate*), 325 MG ORAL DAILY, (Reported) Hydralazine Hcl* (Hydralazine Hcl*), 50 MG GT EVERY 8 HOURS, (Reported) Levetiracetam (Keppra), 15 ML GT DAILY, (Reported) Linagliptin (Tradjenta), 5 MG PO DAILY, (Reported) Lisinopril (Lisinopril*), 40 MG GT DAILY, (Reported) Metformin Hcl (Metformin Hcl), 1,000 MG MC BID, (Reported) Multivitamin Liquid* (Multi-Delyn*), 5 ML GT DAILY, (Reported) Teuwujzidgci-Qgzk-Jmxgqrfa,Iso (Zosyn 3.375 Gm Pre Mix-Bag), 3.375 GM IVPB EVERY 8 HOURS, (Reported) Sennosides/Docusate Sodium (Senna S Tablet), 2 EACH PO QHS, (Reported) Topiramate* (Topamax*), 200 MG GT BID, (Reported) Valproic Acid (Valproic Acid), 10 ML GT TID, (Reported) Scheduled PRN Acetaminophen* (Acetaminophen 325MG Tablet*), 650 MG ORAL Q4H PRN for fever and mild pain , (Reported) Albuterol Sulfate* (Albuterol Sulfate Hfa*), 2 PUFF INH Q3H PRN for Shortness of Breath, (Reported) Clonidine Hcl (Clonidine Hcl), 0.1 MG PO for For High Blood Pressure, (Reported) Ondansetron* (Zofran*), 4 MG IM Q4HR PRN for Nausea & Vomiting, (Reported) Discontinued Medications Amino Acids/Protein Hydrolys (Pro-Stat Liquid), 30 ML GT TWICE A DAY, (Reported) Discontinued Reason: Pt stopped taking med Ascorbic Acid* (Vitamin C*), 500 MG GT DAILY, (Reported) Discontinued Reason: Pt stopped taking med Aspirin (Aspirin EC), 81 MG ORAL DAILY, (Reported) Discontinued Reason: Pt stopped taking med Baclofen (Baclofen), 20 MG GT, (Reported) Discontinued Reason: Pt stopped taking med Fluconazole (Fluconazole), 200 MG ORAL DAILY Discontinued Reason: Pt stopped taking med Meropenem (Meropenem), 1 GM IV EVERY 8 HOURS Discontinued Reason: Pt stopped taking med Theophylline Anhydrous (Theophylline), 300 MG GT DAILY, (Reported) Discontinued Reason: Pt stopped taking med Vancomycin Hcl/D5w (Vancomycin-D5w 500 Mg/100 Ml), 750 MG IV EVERY 12 HOURS Discontinued Reason: Pt stopped taking med Vitamin D (Vitamin D3), 5,000 UNITS GT DAILY, (Reported) Discontinued Reason: Pt stopped taking med Patient History Healthcare decision maker Resuscitation status Advanced Directive on File Past Medical/Surgical History Past Medical/Surgical History: (1) Contracture of joint of multiple sites (2) Chronic respiratory failure (3) Diabetes mellitus (4) Vegetative state (5) Cerebrovascular accident (CVA) (6) Severe sepsis (7) Tracheostomy dependence Review of Systems All Other Systems: negative except mentioned in HPI Physical Exam General Appearance: WD/WN, no apparent distress Lines, tubes and drains: peripheral HEENT: normocephalic, atraumatic Neck: non-tender, normal alignment Respiratory/Chest: chest wall non-tender, rhonchi - left, rhonchi - right Cardiovascular/Chest: normal peripheral pulses, normal rate Abdomen: normal bowel sounds, non tender Genitourinary/Rectal: normal genital exam, normal rectal exam Extremities: normal range of motion Skin Exam: normal pigmentation Last 24 Hour Vital Signs Date Time Temp Pulse Resp B/P (MAP) Pulse Ox O2 Delivery O2 Flow Rate FiO2 07/26/19 09:50 66 165/88 07/26/19 08:00 98.2 66 19 165/88 (113) 99 07/26/19 08:00 65 07/26/19 08:00 40.0 07/26/19 07:28 64 16 40 07/26/19 04:00 40.0 07/26/19 04:00 Trach Collar 07/26/19 04:00 98.5 65 19 150/85 (106) 100 07/26/19 04:00 68 07/26/19 03:26 69 16 40 07/26/19 00:00 65 07/26/19 00:00 Trach Collar 07/26/19 00:00 98.9 69 18 145/99 (114) 100 07/26/19 00:00 40.0 07/25/19 23:13 Mechanical Ventilator 07/25/19 22:49 67 07/25/19 22:48 71 21 40 07/25/19 22:10 99.0 72 17 141/68 100 Mechanical Ventilator 40 07/25/19 20:27 99.0 66 16 176/94 100 Mechanical Ventilator 40 07/25/19 18:59 70 21 Mechanical Ventilator 40 07/25/19 18:59 99.3 70 21 140/70 98 Mechanical Ventilator 40 07/25/19 18:38 91 21 40 07/25/19 18:16 99.3 67 18 128/64 (85) 98 Mechanical Ventilator Intake and Output 07/25/19 07/26/19 19:00 07:00 Intake Total 2585 ml Output Total 100 ml 800 ml Balance -100 ml 1785 ml Intake IV Total 2585 ml Output Urine Total 100 ml 800 ml # Bowel Movements 2 Laboratory Tests Test 07/25/19 18:30 07/25/19 20:02 07/26/19 03:40 07/26/19 06:00 White Blood Count 10.2 K/UL (4.8-10.8) 11.1 K/UL (4.8-10.8) H Red Blood Count 3.44 M/UL (4.70-6.10) L 3.20 M/UL (4.70-6.10) L Hemoglobin 8.7 G/DL (14.2-18.0) L 8.2 G/DL (14.2-18.0) L Hematocrit 29.5 % (42.0-52.0) L 25.4 % (42.0-52.0) L Mean Corpuscular Volume 86 FL (80-99) 80 FL (80-99) Mean Corpuscular Hemoglobin 25.4 PG (27.0-31.0) L 25.7 PG (27.0-31.0) L Mean Corpuscular Hemoglobin Concent 29.6 G/DL (32.0-36.0) L 32.3 G/DL (32.0-36.0) Red Cell Distribution Width 16.8 % (11.6-14.8) H 14.7 % (11.6-14.8) Platelet Count 169 K/UL (150-450) 168 K/UL (150-450) Mean Platelet Volume 10.0 FL (6.5-10.1) 7.9 FL (6.5-10.1) Neutrophils (%) (Auto) 62.8 % (45.0-75.0) 71.2 % (45.0-75.0) Lymphocytes (%) (Auto) 19.8 % (20.0-45.0) L 14.2 % (20.0-45.0) L Monocytes (%) (Auto) 11.2 % (1.0-10.0) H 9.1 % (1.0-10.0) Eosinophils (%) (Auto) 5.6 % (0.0-3.0) H 5.0 % (0.0-3.0) H Basophils (%) (Auto) 0.6 % (0.0-2.0) 0.5 % (0.0-2.0) Urine Color Pale yellow Yellow Urine Appearance Clear Slightly cloudy Urine pH 5 (4.5-8.0) 7 (4.5-8.0) Urine Specific [place] 1.010 (1.005-1.035) 1.005 (1.005-1.035) Urine Protein 2+ (NEGATIVE) H 2+ (NEGATIVE) H Urine Glucose (UA) Negative (NEGATIVE) Negative (NEGATIVE) Urine Ketones 1+ (NEGATIVE) H 1+ (NEGATIVE) H Urine Blood 1+ (NEGATIVE) H 4+ (NEGATIVE) H Urine Nitrite Negative (NEGATIVE) Negative (NEGATIVE) Urine Bilirubin Negative (NEGATIVE) Negative (NEGATIVE) Urine Urobilinogen Normal MG/DL (0.0-1.0) 1 MG/DL (0.0-1.0) H Urine Leukocyte Esterase 1+ (NEGATIVE) H 3+ (NEGATIVE) H Urine RBC 5-10 /HPF (0 - 0) H 10-15 /HPF (0 - 0) H Urine WBC 2-4 /HPF (0 - 0) 5-10 /HPF (0 - 0) H Urine Squamous Epithelial Cells Occasional /LPF Occasional /LPF Urine Calcium Oxalate Crystals Few /LPF (NONE) Urine Bacteria Few /HPF (NONE) Few /HPF (NONE) Sodium Level 144 MMOL/L (136-145) 145 MMOL/L (136-145) Potassium Level 3.2 MMOL/L (3.5-5.1) L 3.2 MMOL/L (3.5-5.1) L Chloride Level 104 MMOL/L (98-107) 109 MMOL/L (98-107) H Carbon Dioxide Level 28 MMOL/L (21-32) 28 MMOL/L (21-32) Anion Gap 12 mmol/L (5-15) 8 mmol/L (5-15) Blood Urea Nitrogen 23 mg/dL (7-18) H 21 mg/dL (7-18) H Creatinine 1.0 MG/DL (0.55-1.30) 0.7 MG/DL (0.55-1.30) Estimat Glomerular Filtration Rate > 60 mL/min (>60) > 60 mL/min (>60) Glucose Level 111 MG/DL (74-106) H 82 MG/DL (74-106) Lactic Acid Level 4.30 mmol/L (0.4-2.0) H 4.20 mmol/L (0.66-2.22) H Calcium Level 9.0 MG/DL (8.5-10.1) 8.4 MG/DL (8.5-10.1) L Total Bilirubin 0.2 MG/DL (0.2-1.0) 0.2 MG/DL (0.2-1.0) Aspartate Amino Transf (AST/SGOT) 30 U/L (15-37) 30 U/L (15-37) Alanine Aminotransferase (ALT/SGPT) 43 U/L (12-78) 33 U/L (12-78) Alkaline Phosphatase 65 U/L (46-116) 59 U/L (46-116) Pro-B-Type Natriuretic Peptide 934 pg/mL (0-125) H 1018 pg/mL (0-125) H Total Protein 6.6 G/DL (6.4-8.2) 6.5 G/DL (6.4-8.2) Albumin 2.1 G/DL (3.4-5.0) L 2.0 G/DL (3.4-5.0) L Globulin 4.5 g/dL Albumin/Globulin Ratio 0.5 (1.0-2.7) L Erythrocyte Sedimentation Rate 82 MM/HR (0-20) H Hemoglobin A1c 6.6 % (4.3-6.0) H Magnesium Level 1.7 MG/DL (1.8-2.4) L Direct Bilirubin < 0.1 MG/DL (0.0-0.3) C-Reactive Protein, Quantitative 21.4 mg/dL (0.00-0.90) H Thyroid Stimulating Hormone (TSH) 2.541 uiU/mL (0.358-3.740) Free Thyroxine 1.15 NG/DL (0.76-1.46) Test 07/26/19 08:00 Lactic Acid Level 1.00 mmol/L (0.4-2.0) Microbiology Date/Time Source Procedure Growth Status 07/25/19 18:30 Rectum Received Height (Feet): 5 Height (Inches): 8.00 Weight (Pounds): 160 Medications Current Medications Medications (Trade) Dose Ordered Sig/Bhupinder Route PRN Reason Start Time Stop Time Status Last Admin Dose Admin Atorvastatin Calcium (Lipitor) 20 mg BEDTIME GT 07/26/19 21:00 10/24/19 20:59 Chlorhexidine Gluconate (Jasmin-Hex 2%) 1 applic DAILY@2000 TOPIC 07/26/19 20:00 10/24/19 19:59 Heparin Sodium (Porcine) (Heparin 5000 units/ml) 5,000 units EVERY 12 HOURS SUBQ 07/26/19 09:00 09/09/19 08:59 07/26/19 09:51 Heparin Sodium/ Sodium Chloride (Heparin 1000 units/500ml Premix) 1,000 unit ONCE PRN IV PICC PLACEMENT 07/26/19 08:45 07/27/19 23:59 Lidocaine HCl (Xylocaine 1% 30ml) 30 ml ONCE PRN INJ PICC PLACEMENT 07/26/19 08:45 07/27/19 23:59 Metformin HCl (Glucophage) 500 mg BID GT 07/26/19 09:00 08/25/19 08:59 07/26/19 09:50 Metoprolol Tartrate (Lopressor) 50 mg Q12HR ORAL 07/26/19 09:00 10/24/19 08:59 07/26/19 09:50 Pantoprazole (Protonix) 40 mg EVERY 12 HOURS IVP 07/26/19 09:00 08/25/19 08:59 07/26/19 09:50 Vancomycin HCl 750 mg/Dextrose 275 ml @ 184 mls/hr Q12H IVPB 07/26/19 02:00 07/31/19 01:59 07/26/19 02:35 Vitamin D (Vitamin D) 5,000 intlu DAILY GT 07/26/19 09:00 08/25/19 08:59 07/26/19 09:50 Assessment/Plan Problem List: (1) Acute on chronic respiratory failure ICD Codes: J96.20 - Acute and chronic respiratory failure, unspecified whether with hypoxia or hypercapnia SNOMED: 57915827 (2) Nosocomial pneumonia ICD Codes: J18.9 - Pneumonia, unspecified organism; Y95 - Nosocomial condition SNOMED: 165193146 (3) Severe anemia ICD Codes: D64.9 - Anemia, unspecified SNOMED: 090133146 (4) Chronic respiratory failure ICD Codes: J96.10 - Chronic respiratory failure, unspecified whether with hypoxia or hypercapnia SNOMED: 70692624 (5) Sepsis ICD Codes: A41.9 - Sepsis, unspecified organism SNOMED: 95382378 (6) Tracheostomy dependence ICD Codes: Z93.0 - Tracheostomy status; R65.20 - Severe sepsis without septic shock SNOMED: 812122379 (7) Contracture of joint of multiple sites ICD Codes: M24.50 - Contracture, unspecified joint SNOMED: 50007287, 713322814 (8) Diabetes mellitus ICD Codes: E11.9 - Type 2 diabetes mellitus without complications SNOMED: 62429163 (9) Cerebrovascular accident (CVA) ICD Codes: I63.9 - Cerebral infarction, unspecified SNOMED: 604003061 (10) Vegetative state ICD Codes: R40.3 - Persistent vegetative state SNOMED: 69204846 Respiratory: monitor respiratory rate, adjust FIO2, CXR Cardiac: continue to monitor HR/BP Renal: F/U I&O, keep IV fluid Infectious Disease: check cultures Gastrointestinal: continue feedings/current rate Endocrine: monitor blood sugar, check HgA1C Hematologic: monitor H/H, transfuse if hgb<8.5 Neurologic: PRN Ativan, PRN Morphine, keep patient comfortable Affect: PRN ativan Time Spent (Minutes): 40 Discussed with: nurses, consultants, major case detective Yomi Odom MD Jul 26, 2019 11:05
--- NOTE | 2019-07-26 11:28 | Diagnostic Imaging Report ---
Indications:Pain and swelling Technique: Three or 4 views of the right elbow Comparison: None Findings: Exam is limited, essentially nondiagnostic, due to patient inability to straighten the elbow. No gross acute fractures or dislocations are demonstrated. There is diffuse soft tissue swelling. No definite effusion Impression: Limited and essentially nondiagnostic. No definite acute abnormality
[2019-07-26 11:47] VITALS: BP 160/76
--- NOTE | 2019-07-26 12:35 | Consultation ---
History of Present Illness General Date patient seen: Jul 26, 2019 Chief Complaint: General Complaint Present Illness HPI This is a 69-year-old male who presents to [facility] emergency department from nursing facility for evaluation of fever. Patient is trach dependent on vent support PEG dependent on feeds who was recently identified to have fevers and his facility and also noted to have right arm cellulitis. Patient nonverbal at baseline. Surgery called to evaluate for right arm cellulitis and assist with care and plan. Patient seen, patient evaluated, chart reviewed. Patient is nonverbal and unable to provide any additional history at this time. No signs of distress. No nausea or vomiting. No cough or runny nose or congestion. No other aggravating relieving factors. No other associated symptoms unknown duration of right arm cellulitis. Labs reviewed. Imaging reviewed Allergies: Coded Allergies: No Known Allergies (Unverified , 05/27/18) Medication History Scheduled Ascorbic Acid* (Vitamin C*), 500 MG GT DAILY, (Reported) Atorvastatin Calcium* (Atorvastatin Calcium*), 20 MG GT BEDTIME, (Reported) Cholecalciferol (Vitamin D3) (Vitamin D3), 5,000 UNITS GT DAILY, (Reported) Docusate Sodium* (Colace*), 100 MG GT DAILY, (Reported) Famotidine* (Pepcid 20mg tablet*), 20 MG ORAL QHS, (Reported) Ferrous Sulfate* (Ferrous Sulfate*), 325 MG ORAL DAILY, (Reported) Hydralazine Hcl* (Hydralazine Hcl*), 50 MG GT EVERY 8 HOURS, (Reported) Levetiracetam (Keppra), 15 ML GT DAILY, (Reported) Linagliptin (Tradjenta), 5 MG PO DAILY, (Reported) Lisinopril (Lisinopril*), 40 MG GT DAILY, (Reported) Metformin Hcl (Metformin Hcl), 1,000 MG MC BID, (Reported) Multivitamin Liquid* (Multi-Delyn*), 5 ML GT DAILY, (Reported) Xrmwcnygexeu-Uzlo-Dgkcdmff,Iso (Zosyn 3.375 Gm Pre Mix-Bag), 3.375 GM IVPB EVERY 8 HOURS, (Reported) Sennosides/Docusate Sodium (Senna S Tablet), 2 EACH PO QHS, (Reported) Topiramate* (Topamax*), 200 MG GT BID, (Reported) Valproic Acid (Valproic Acid), 10 ML GT TID, (Reported) Scheduled PRN Acetaminophen* (Acetaminophen 325MG Tablet*), 650 MG ORAL Q4H PRN for fever and mild pain , (Reported) Albuterol Sulfate* (Albuterol Sulfate Hfa*), 2 PUFF INH Q3H PRN for Shortness of Breath, (Reported) Clonidine Hcl (Clonidine Hcl), 0.1 MG PO for For High Blood Pressure, (Reported) Ondansetron* (Zofran*), 4 MG IM Q4HR PRN for Nausea & Vomiting, (Reported) Discontinued Medications Amino Acids/Protein Hydrolys (Pro-Stat Liquid), 30 ML GT TWICE A DAY, (Reported) Discontinued Reason: Pt stopped taking med Ascorbic Acid* (Vitamin C*), 500 MG GT DAILY, (Reported) Discontinued Reason: Pt stopped taking med Aspirin (Aspirin EC), 81 MG ORAL DAILY, (Reported) Discontinued Reason: Pt stopped taking med Baclofen (Baclofen), 20 MG GT, (Reported) Discontinued Reason: Pt stopped taking med Fluconazole (Fluconazole), 200 MG ORAL DAILY Discontinued Reason: Pt stopped taking med Meropenem (Meropenem), 1 GM IV EVERY 8 HOURS Discontinued Reason: Pt stopped taking med Theophylline Anhydrous (Theophylline), 300 MG GT DAILY, (Reported) Discontinued Reason: Pt stopped taking med Vancomycin Hcl/D5w (Vancomycin-D5w 500 Mg/100 Ml), 750 MG IV EVERY 12 HOURS Discontinued Reason: Pt stopped taking med Vitamin D (Vitamin D3), 5,000 UNITS GT DAILY, (Reported) Discontinued Reason: Pt stopped taking med Patient History Limited by: medical condition History Provided By: Medical Record, PMD Healthcare decision maker Resuscitation status Advanced Directive on File Past Medical/Surgical History Past Medical/Surgical History: (1) Severe anemia (2) Contracture of joint of multiple sites (3) Chronic respiratory failure (4) Diabetes mellitus (5) Vegetative state (6) Nosocomial pneumonia (7) Cerebrovascular accident (CVA) (8) Sepsis (9) Acute on chronic respiratory failure (10) Severe sepsis (11) Tracheostomy dependence Review of Systems ROS Narrative Unable obtain given patient's baseline medical condition Physical Exam General Appearance: mild distress Lines, tubes and drains: peripheral HEENT: mucous membranes moist Neck: trach Respiratory/Chest: on vent Cardiovascular/Chest: tachycardia Abdomen: soft, no organomegaly, no mass, feeding tube Genitourinary/Rectal: olmos Extremities: inflammation, slow capillary refill, moderate edema Skin Exam: warm/dry Neurologic: unresponsiveness Last 24 Hour Vital Signs Date Time Temp Pulse Resp B/P (MAP) Pulse Ox O2 Delivery O2 Flow Rate FiO2 07/26/19 11:47 99.0 62 19 160/76 (104) 97 07/26/19 09:50 66 165/88 07/26/19 08:00 98.2 66 19 165/88 (113) 99 07/26/19 08:00 65 07/26/19 08:00 40.0 07/26/19 08:00 Trach Collar 07/26/19 07:28 64 16 40 07/26/19 04:00 40.0 07/26/19 04:00 Trach Collar 07/26/19 04:00 98.5 65 19 150/85 (106) 100 07/26/19 04:00 68 07/26/19 03:26 69 16 40 07/26/19 00:00 65 07/26/19 00:00 Trach Collar 07/26/19 00:00 98.9 69 18 145/99 (114) 100 07/26/19 00:00 40.0 07/25/19 23:13 Mechanical Ventilator 07/25/19 22:49 67 07/25/19 22:48 71 21 40 07/25/19 22:10 99.0 72 17 141/68 100 Mechanical Ventilator 40 07/25/19 20:27 99.0 66 16 176/94 100 Mechanical Ventilator 40 07/25/19 18:59 70 21 Mechanical Ventilator 40 07/25/19 18:59 99.3 70 21 140/70 98 Mechanical Ventilator 40 07/25/19 18:38 91 21 40 07/25/19 18:16 99.3 67 18 128/64 (85) 98 Mechanical Ventilator Intake and Output 07/25/19 07/26/19 19:00 07:00 Intake Total 2585 ml Output Total 100 ml 800 ml Balance -100 ml 1785 ml Intake IV Total 2585 ml Output Urine Total 100 ml 800 ml # Bowel Movements 2 Laboratory Tests Test 07/25/19 18:30 07/25/19 20:02 07/26/19 03:40 07/26/19 06:00 White Blood Count 10.2 K/UL (4.8-10.8) 11.1 K/UL (4.8-10.8) H Red Blood Count 3.44 M/UL (4.70-6.10) L 3.20 M/UL (4.70-6.10) L Hemoglobin 8.7 G/DL (14.2-18.0) L 8.2 G/DL (14.2-18.0) L Hematocrit 29.5 % (42.0-52.0) L 25.4 % (42.0-52.0) L Mean Corpuscular Volume 86 FL (80-99) 80 FL (80-99) Mean Corpuscular Hemoglobin 25.4 PG (27.0-31.0) L 25.7 PG (27.0-31.0) L Mean Corpuscular Hemoglobin Concent 29.6 G/DL (32.0-36.0) L 32.3 G/DL (32.0-36.0) Red Cell Distribution Width 16.8 % (11.6-14.8) H 14.7 % (11.6-14.8) Platelet Count 169 K/UL (150-450) 168 K/UL (150-450) Mean Platelet Volume 10.0 FL (6.5-10.1) 7.9 FL (6.5-10.1) Neutrophils (%) (Auto) 62.8 % (45.0-75.0) 71.2 % (45.0-75.0) Lymphocytes (%) (Auto) 19.8 % (20.0-45.0) L 14.2 % (20.0-45.0) L Monocytes (%) (Auto) 11.2 % (1.0-10.0) H 9.1 % (1.0-10.0) Eosinophils (%) (Auto) 5.6 % (0.0-3.0) H 5.0 % (0.0-3.0) H Basophils (%) (Auto) 0.6 % (0.0-2.0) 0.5 % (0.0-2.0) Urine Color Pale yellow Yellow Urine Appearance Clear Slightly cloudy Urine pH 5 (4.5-8.0) 7 (4.5-8.0) Urine Specific [place] 1.010 (1.005-1.035) 1.005 (1.005-1.035) Urine Protein 2+ (NEGATIVE) H 2+ (NEGATIVE) H Urine Glucose (UA) Negative (NEGATIVE) Negative (NEGATIVE) Urine Ketones 1+ (NEGATIVE) H 1+ (NEGATIVE) H Urine Blood 1+ (NEGATIVE) H 4+ (NEGATIVE) H Urine Nitrite Negative (NEGATIVE) Negative (NEGATIVE) Urine Bilirubin Negative (NEGATIVE) Negative (NEGATIVE) Urine Urobilinogen Normal MG/DL (0.0-1.0) 1 MG/DL (0.0-1.0) H Urine Leukocyte Esterase 1+ (NEGATIVE) H 3+ (NEGATIVE) H Urine RBC 5-10 /HPF (0 - 0) H 10-15 /HPF (0 - 0) H Urine WBC 2-4 /HPF (0 - 0) 5-10 /HPF (0 - 0) H Urine Squamous Epithelial Cells Occasional /LPF Occasional /LPF Urine Calcium Oxalate Crystals Few /LPF (NONE) Urine Bacteria Few /HPF (NONE) Few /HPF (NONE) Sodium Level 144 MMOL/L (136-145) 145 MMOL/L (136-145) Potassium Level 3.2 MMOL/L (3.5-5.1) L 3.2 MMOL/L (3.5-5.1) L Chloride Level 104 MMOL/L (98-107) 109 MMOL/L (98-107) H Carbon Dioxide Level 28 MMOL/L (21-32) 28 MMOL/L (21-32) Anion Gap 12 mmol/L (5-15) 8 mmol/L (5-15) Blood Urea Nitrogen 23 mg/dL (7-18) H 21 mg/dL (7-18) H Creatinine 1.0 MG/DL (0.55-1.30) 0.7 MG/DL (0.55-1.30) Estimat Glomerular Filtration Rate > 60 mL/min (>60) > 60 mL/min (>60) Glucose Level 111 MG/DL (74-106) H 82 MG/DL (74-106) Lactic Acid Level 4.30 mmol/L (0.4-2.0) H 4.20 mmol/L (0.66-2.22) H Calcium Level 9.0 MG/DL (8.5-10.1) 8.4 MG/DL (8.5-10.1) L Total Bilirubin 0.2 MG/DL (0.2-1.0) 0.2 MG/DL (0.2-1.0) Aspartate Amino Transf (AST/SGOT) 30 U/L (15-37) 30 U/L (15-37) Alanine Aminotransferase (ALT/SGPT) 43 U/L (12-78) 33 U/L (12-78) Alkaline Phosphatase 65 U/L (46-116) 59 U/L (46-116) Pro-B-Type Natriuretic Peptide 934 pg/mL (0-125) H 1018 pg/mL (0-125) H Total Protein 6.6 G/DL (6.4-8.2) 6.5 G/DL (6.4-8.2) Albumin 2.1 G/DL (3.4-5.0) L 2.0 G/DL (3.4-5.0) L Globulin 4.5 g/dL Albumin/Globulin Ratio 0.5 (1.0-2.7) L Erythrocyte Sedimentation Rate 82 MM/HR (0-20) H Hemoglobin A1c 6.6 % (4.3-6.0) H Magnesium Level 1.7 MG/DL (1.8-2.4) L Direct Bilirubin < 0.1 MG/DL (0.0-0.3) C-Reactive Protein, Quantitative 21.4 mg/dL (0.00-0.90) H Thyroid Stimulating Hormone (TSH) 2.541 uiU/mL (0.358-3.740) Free Thyroxine 1.15 NG/DL (0.76-1.46) Test 07/26/19 08:00 Lactic Acid Level 1.00 mmol/L (0.4-2.0) Microbiology Date/Time Source Procedure Growth Status 07/25/19 18:30 Rectum Received Height (Feet): 5 Height (Inches): 8.00 Weight (Pounds): 160 Medications Current Medications Medications (Trade) Dose Ordered Sig/Bhupinder Route PRN Reason Start Time Stop Time Status Last Admin Dose Admin Atorvastatin Calcium (Lipitor) 20 mg BEDTIME GT 07/26/19 21:00 10/24/19 20:59 Chlorhexidine Gluconate (Jasmin-Hex 2%) 1 applic DAILY@1999 TOPIC 07/26/19 20:00 10/24/19 19:59 Heparin Sodium (Porcine) (Heparin 5000 units/ml) 5,000 units EVERY 12 HOURS SUBQ 07/26/19 09:00 09/09/19 08:59 07/26/19 09:51 Heparin Sodium/ Sodium Chloride (Heparin 1000 units/500ml Premix) 1,000 unit ONCE PRN IV PICC PLACEMENT 07/26/19 08:45 07/27/19 23:59 Lidocaine HCl (Xylocaine 1% 30ml) 30 ml ONCE PRN INJ PICC PLACEMENT 07/26/19 08:45 07/27/19 23:59 Metformin HCl (Glucophage) 500 mg BID GT 07/26/19 09:00 08/25/19 08:59 07/26/19 09:50 Metoprolol Tartrate (Lopressor) 50 mg Q12HR ORAL 07/26/19 09:00 10/24/19 08:59 07/26/19 09:50 Pantoprazole (Protonix) 40 mg EVERY 12 HOURS IVP 07/26/19 09:00 08/25/19 08:59 07/26/19 09:50 Vancomycin HCl 750 mg/Dextrose 275 ml @ 184 mls/hr Q12H IVPB 07/26/19 02:00 07/31/19 01:59 07/26/19 02:35 Vitamin D (Vitamin D) 5,000 intlu DAILY GT 07/26/19 09:00 08/25/19 08:59 07/26/19 09:50 Assessment/Plan Problem List: (1) Cellulitis of right upper extremity Assessment & Plan: This is a 69-year-old male with fevers, leukocytosis, abnormal labs, right elbow cellulitis identified upper extremity. There is significant erythema edema without drainage or fluctuance. The edema is pitting and the right upper extremity does have a contracture at the level of the elbow. With gentle manipulation can slowly begin to straighten the elbow but does have overall limited movement. Plain films identified no fractures noted. No history of fall. No trauma identifiable on examination. Though this could potentially be a infectious process looks inflammatory in nature potentially dependent edema versus venous congestion. Ultrasound upper extremity will be ordered. Pillow to be placed underneath the axilla and to help elevate the elbow. Pillow placed in between the elbow to allow for some decompression. Will monitor skin closely as edema worsening and could breakdown. IV in a biotics as per infectious disease nutritional optimization vent as per pulmonology will follow with recommendations thank you for let me participate in patient's care ICD Codes: L03.113 - Cellulitis of right upper limb SNOMED: [id number] Jaden Doshi Jul 26, 2019 12:35
[2019-07-26] MEDS ORDERED: Zinc Oxide Oint 2oz TOPIC PRN (12:45)
--- NOTE | 2019-07-26 12:54 | NUR ---
CASE MANAGEMENT: REVIEW 69 YEAR OLD MALE BIBA FROM [facility] CC: FEVER . SI: CELLULITIS RIGHT ARM . T 99.3 HR 67 RR 18 BP 176/94 SAT 100% MECH VENT FIO2 40 H/H 8.7/29.5 K 3.2 BUN 23 LACTIC ACID 4.30 BNP 934 IS: PROTONIX IV Q12HR VANCOMYCIN IV Q12HR HEPARIN SUBQ Q12HR PATIENT ADMITTED TO STEP DOWN UNIT 07/25/2019 DCP: PATIENT IS FROM [facility]
--- NOTE | 2019-07-26 13:00 | NUR ---
NURSE NOTES: Noted O2 Sat 97% on room air. Denied SOB
[2019-07-26 13:12] LABS: LACTATE DEHYDROGENASE 178 U/L (81-234)
[2019-07-26 13:58] LABS: % IRON SATURATION 5 % (15-50); IRON 12 ug/dL (50-175); TOTAL IRON BINDING CAPACITY 224 ug/dL (250-450)
--- NOTE | 2019-07-26 15:36 | Orthopedic Progress Note ---
Orthopedic - Progress Note Subjective Additional Comments 69 year old non-verbal bedridden male with infectious signs and symptoms. Has numerous possible etiologies, including GI, pulmonary, and right elbow. No history could be obtained given his non-verbal condition. Objective Last 24 Hour Vital Signs Date Time Temp Pulse Resp B/P (MAP) Pulse Ox O2 Delivery O2 Flow Rate FiO2 07/26/19 15:20 69 22 40 07/26/19 12:00 40.0 07/26/19 12:00 Trach Collar 07/26/19 11:47 99.0 62 19 160/76 (104) 97 07/26/19 11:08 25 23 40 07/26/19 09:50 66 165/88 07/26/19 08:00 98.2 66 19 165/88 (113) 99 07/26/19 08:00 65 07/26/19 08:00 40.0 07/26/19 08:00 Trach Collar 07/26/19 07:28 64 16 40 07/26/19 04:00 40.0 07/26/19 04:00 Trach Collar 07/26/19 04:00 98.5 65 19 150/85 (106) 100 07/26/19 04:00 68 07/26/19 03:26 69 16 40 07/26/19 00:00 65 07/26/19 00:00 Trach Collar 07/26/19 00:00 98.9 69 18 145/99 (114) 100 07/26/19 00:00 40.0 07/25/19 23:13 Mechanical Ventilator 07/25/19 22:49 67 07/25/19 22:48 71 21 40 07/25/19 22:10 99.0 72 17 141/68 100 Mechanical Ventilator 40 07/25/19 20:27 99.0 66 16 176/94 100 Mechanical Ventilator 40 07/25/19 18:59 70 21 Mechanical Ventilator 40 07/25/19 18:59 99.3 70 21 140/70 98 Mechanical Ventilator 40 07/25/19 18:38 91 21 40 07/25/19 18:16 99.3 67 18 128/64 (85) 98 Mechanical Ventilator Intake and Output 07/25/19 07/26/19 19:00 07:00 Intake Total 2585 ml Output Total 100 ml 800 ml Balance -100 ml 1785 ml Intake IV Total 2585 ml Output Urine Total 100 ml 800 ml # Bowel Movements 2 Laboratory Tests Test 07/25/19 18:30 07/25/19 20:02 07/26/19 03:40 07/26/19 06:00 White Blood Count 10.2 K/UL (4.8-10.8) 11.1 K/UL (4.8-10.8) H Red Blood Count 3.44 M/UL (4.70-6.10) L 3.20 M/UL (4.70-6.10) L Hemoglobin 8.7 G/DL (14.2-18.0) L 8.2 G/DL (14.2-18.0) L Hematocrit 29.5 % (42.0-52.0) L 25.4 % (42.0-52.0) L Mean Corpuscular Volume 86 FL (80-99) 80 FL (80-99) Mean Corpuscular Hemoglobin 25.4 PG (27.0-31.0) L 25.7 PG (27.0-31.0) L Mean Corpuscular Hemoglobin Concent 29.6 G/DL (32.0-36.0) L 32.3 G/DL (32.0-36.0) Red Cell Distribution Width 16.8 % (11.6-14.8) H 14.7 % (11.6-14.8) Platelet Count 169 K/UL (150-450) 168 K/UL (150-450) Mean Platelet Volume 10.0 FL (6.5-10.1) 7.9 FL (6.5-10.1) Neutrophils (%) (Auto) 62.8 % (45.0-75.0) 71.2 % (45.0-75.0) Lymphocytes (%) (Auto) 19.8 % (20.0-45.0) L 14.2 % (20.0-45.0) L Monocytes (%) (Auto) 11.2 % (1.0-10.0) H 9.1 % (1.0-10.0) Eosinophils (%) (Auto) 5.6 % (0.0-3.0) H 5.0 % (0.0-3.0) H Basophils (%) (Auto) 0.6 % (0.0-2.0) 0.5 % (0.0-2.0) Urine Color Pale yellow Yellow Urine Appearance Clear Slightly cloudy Urine pH 5 (4.5-8.0) 7 (4.5-8.0) Urine Specific [place] 1.010 (1.005-1.035) 1.005 (1.005-1.035) Urine Protein 2+ (NEGATIVE) H 2+ (NEGATIVE) H Urine Glucose (UA) Negative (NEGATIVE) Negative (NEGATIVE) Urine Ketones 1+ (NEGATIVE) H 1+ (NEGATIVE) H Urine Blood 1+ (NEGATIVE) H 4+ (NEGATIVE) H Urine Nitrite Negative (NEGATIVE) Negative (NEGATIVE) Urine Bilirubin Negative (NEGATIVE) Negative (NEGATIVE) Urine Urobilinogen Normal MG/DL (0.0-1.0) 1 MG/DL (0.0-1.0) H Urine Leukocyte Esterase 1+ (NEGATIVE) H 3+ (NEGATIVE) H Urine RBC 5-10 /HPF (0 - 0) H 10-15 /HPF (0 - 0) H Urine WBC 2-4 /HPF (0 - 0) 5-10 /HPF (0 - 0) H Urine Squamous Epithelial Cells Occasional /LPF Occasional /LPF Urine Calcium Oxalate Crystals Few /LPF (NONE) Urine Bacteria Few /HPF (NONE) Few /HPF (NONE) Sodium Level 144 MMOL/L (136-145) 145 MMOL/L (136-145) Potassium Level 3.2 MMOL/L (3.5-5.1) L 3.2 MMOL/L (3.5-5.1) L Chloride Level 104 MMOL/L (98-107) 109 MMOL/L (98-107) H Carbon Dioxide Level 28 MMOL/L (21-32) 28 MMOL/L (21-32) Anion Gap 12 mmol/L (5-15) 8 mmol/L (5-15) Blood Urea Nitrogen 23 mg/dL (7-18) H 21 mg/dL (7-18) H Creatinine 1.0 MG/DL (0.55-1.30) 0.7 MG/DL (0.55-1.30) Estimat Glomerular Filtration Rate > 60 mL/min (>60) > 60 mL/min (>60) Glucose Level 111 MG/DL (74-106) H 82 MG/DL (74-106) Lactic Acid Level 4.30 mmol/L (0.4-2.0) H 4.20 mmol/L (0.66-2.22) H Calcium Level 9.0 MG/DL (8.5-10.1) 8.4 MG/DL (8.5-10.1) L Total Bilirubin 0.2 MG/DL (0.2-1.0) 0.2 MG/DL (0.2-1.0) Aspartate Amino Transf (AST/SGOT) 30 U/L (15-37) 30 U/L (15-37) Alanine Aminotransferase (ALT/SGPT) 43 U/L (12-78) 33 U/L (12-78) Alkaline Phosphatase 65 U/L (46-116) 59 U/L (46-116) Pro-B-Type Natriuretic Peptide 934 pg/mL (0-125) H 1018 pg/mL (0-125) H Total Protein 6.6 G/DL (6.4-8.2) 6.5 G/DL (6.4-8.2) Albumin 2.1 G/DL (3.4-5.0) L 2.0 G/DL (3.4-5.0) L Globulin 4.5 g/dL Albumin/Globulin Ratio 0.5 (1.0-2.7) L Differential Total Cells Counted 100 Neutrophils % (Manual) 71 % (45-75) Lymphocytes % (Manual) 15 % (20-45) L Monocytes % (Manual) 10 % (1-10) Eosinophils % (Manual) 4 % (0-3) H Basophils % (Manual) 0 % (0-2) Band Neutrophils 0 % (0-8) Platelet Estimate Adequate Platelet Morphology Normal Hypochromasia 1+ Anisocytosis 1+ Erythrocyte Sedimentation Rate 82 MM/HR (0-20) H Hemoglobin A1c 6.6 % (4.3-6.0) H Magnesium Level 1.7 MG/DL (1.8-2.4) L Direct Bilirubin < 0.1 MG/DL (0.0-0.3) C-Reactive Protein, Quantitative 21.4 mg/dL (0.00-0.90) H Thyroid Stimulating Hormone (TSH) 2.541 uiU/mL (0.358-3.740) Free Thyroxine 1.15 NG/DL (0.76-1.46) Test 07/26/19 08:00 07/26/19 12:35 Lactic Acid Level 1.00 mmol/L (0.4-2.0) Reticulocyte Count 1.0 % (0.5-2.0) Prothrombin Time 11.0 SEC (9.30-11.50) Prothromb Time International Ratio 1.0 (0.9-1.1) Activated Partial Thromboplast Time 24 SEC (23-33) Iron Level 12 ug/dL (50-175) L Total Iron Binding Capacity 224 ug/dL (250-450) L Percent Iron Saturation 5 % (15-50) L Unsaturated Iron Binding 212 ug/dL (112-346) Lactate Dehydrogenase 178 U/L (81-234) Carcinoembryonic Antigen Pending Vitamin B12 Level 600 PG/ML (193-986) Folate 70.5 NG/ML (8.6-58.9) H Microbiology Date/Time Source Procedure Growth Status 07/25/19 18:30 Rectum Received Additional Comments Right elbow with a fixed contraction of approximately 100 degrees. Diffuse swelling and cellulitic skin noted. No evidence of distress with attempts at movement. Plan Additional Comments 69 year old with right elbow cellulitis. The status of the joint space cannot be physically evaluated due to the contractures. Without use or movement of the right elbow, continued IV abx are recommended. No operative intervention is warranted at this time. Thank you for the opportunity to consult. Otto Villareal MD Jul 26, 2019 15:36
--- NOTE | 2019-07-26 15:37 | Diagnostic Imaging Report ---
Indication: Right arm swelling, edema, cellulitis, and redness Technique: Grayscale and duplex images of the right upper extremity veins Comparison: none Findings: Grayscale and duplex images demonstrate no evidence of intraluminal thrombus. Normal Doppler waveforms. Normal compressibility. There is edema of the subcutaneous fat Impression: No evidence of right upper extremity venous thrombosis
[2019-07-26 16:00] VITALS: BP 152/78
--- NOTE | 2019-07-26 16:02 | NUR ---
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 Historical scar with hyperpigmentation Sacrum . Area of non-blanching erythema also noted at previously injured site. Base of scrotum is erythematous with partial thickness shearing. Generalized Maculopapular red rash noted. Tx.Plan:Cleanse GT site with Soap and tepid water. Apply Zinc Oxide Paste to GT site Three times daily. Apply Moisture Barrier Paste to Buttocks . Cover with Optifoam drsg. Change every 3 days and prn. Apply Moisture Barrier Paste to Scrotum with each Incontinence care. Reposition at least every 2hours or as tolerated. Off-load heels with Pillow.
[2019-07-26] MEDS ORDERED: NOVOLOG100 UNITS1 (16:27)
[2019-07-26] MEDS ORDERED: GLIMEPIRIDE4 MG GT (16:27)
[2019-07-26] MEDS ORDERED: Albuterol 90mcg Inhaler 8gm INH PRN (16:30)
[2019-07-26] MEDS ORDERED: NovoLOG Insulin Flexpen SUBQ SCH (16:30)
[2019-07-26] MEDS: Glimepiride 4mg tab GT SCH (17:15)
[2019-07-26] MEDS: Topiramate 100mg tab GT SCH (17:15)
[2019-07-26] MEDS: metFORMIN 500mg tab ORAL SCH (17:15)
[2019-07-26] MEDS: NovoLOG Insulin Flexpen SUBQ SCH ×2 (17:28→23:05)
--- NOTE | 2019-07-26 18:31 | Consultation ---
History of Present Illness General Date patient seen: Jul 26, 2019 Chief Complaint: General Complaint Present Illness HPI 69 y/o M with hx of Dm2, HTN, CVA/TIA, CHF, seizure disorder, contractures, chronic resp failure s/p trach/vent dependant, vegetative state 2ry to anoxic brain injury, SNF resident (cristian hernández) presented to ED on 07/25/19 with fevers and R arm cellulitis. No report of nausea, vomiting, cough. Allergies: Coded Allergies: No Known Allergies (Unverified , 05/27/18) Medication History Scheduled Ascorbic Acid* (Vitamin C*), 500 MG GT DAILY, (Reported) Atorvastatin Calcium* (Atorvastatin Calcium*), 10 MG GT BEDTIME, (Reported) Cholecalciferol (Vitamin D3) (Vitamin D3), 5,000 UNITS GT DAILY, (Reported) Docusate Sodium* (Colace*), 100 MG GT DAILY, (Reported) Famotidine* (Pepcid 20mg tablet*), 20 MG ORAL QHS, (Reported) Ferrous Sulfate* (Ferrous Sulfate*), 325 MG ORAL DAILY, (Reported) Glimepiride* (Glimepiride*), 4 MG GT BID, (Reported) Hydralazine Hcl* (Hydralazine Hcl*), 50 MG GT EVERY 8 HOURS, (Reported) Levetiracetam (Keppra), 15 ML GT DAILY, (Reported) Linagliptin (Tradjenta), 5 MG PO DAILY, (Reported) Lisinopril (Lisinopril*), 40 MG GT DAILY, (Reported) Metformin Hcl (Metformin Hcl), 1,000 MG MC BID, (Reported) Multivitamin Liquid* (Multi-Delyn*), 5 ML GT DAILY, (Reported) Zornxbsvaeea-Ekkl-Tivnlttp,Iso (Zosyn 3.375 Gm Pre Mix-Bag), 3.375 GM IVPB EVERY 8 HOURS, (Reported) Sennosides/Docusate Sodium (Senna S Tablet), 2 EACH PO QHS, (Reported) Topiramate* (Topamax*), 200 MG GT BID, (Reported) Valproic Acid (Valproic Acid), 20 ML GT TID, (Reported) Scheduled PRN Acetaminophen* (Acetaminophen 325MG Tablet*), 650 MG ORAL Q4H PRN for fever and mild pain , (Reported) Albuterol Sulfate* (Albuterol Sulfate Hfa*), 2 PUFF INH Q3H PRN for Shortness of Breath, (Reported) Clonidine Hcl (Clonidine Hcl), 0.1 MG PO Q8HR PRN for For High Blood Pressure, ( Reported) Insulin Aspart (Novolog Flexpen), for DM, (Reported) Ondansetron* (Zofran*), 4 MG GT Q4HR PRN for Nausea & Vomiting, (Reported) Discontinued Medications Amino Acids/Protein Hydrolys (Pro-Stat Liquid), 30 ML GT TWICE A DAY, (Reported) Discontinued Reason: Pt stopped taking med Ascorbic Acid* (Vitamin C*), 500 MG GT DAILY, (Reported) Discontinued Reason: Pt stopped taking med Aspirin (Aspirin EC), 81 MG ORAL DAILY, (Reported) Discontinued Reason: Pt stopped taking med Baclofen (Baclofen), 20 MG GT, (Reported) Discontinued Reason: Pt stopped taking med Fluconazole (Fluconazole), 200 MG ORAL DAILY Discontinued Reason: Pt stopped taking med Meropenem (Meropenem), 1 GM IV EVERY 8 HOURS Discontinued Reason: Pt stopped taking med Theophylline Anhydrous (Theophylline), 300 MG GT DAILY, (Reported) Discontinued Reason: Pt stopped taking med Vancomycin Hcl/D5w (Vancomycin-D5w 500 Mg/100 Ml), 750 MG IV EVERY 12 HOURS Discontinued Reason: Pt stopped taking med Vitamin D (Vitamin D3), 5,000 UNITS GT DAILY, (Reported) Discontinued Reason: Pt stopped taking med Patient History Healthcare decision maker Resuscitation status Advanced Directive on File Patient History Narrative PMhx: as above Shx: Denies: smoking, alcohol use, drug use Fhx: non contributory Review of Systems ROS Narrative unable to obtain Physical Exam Physical Exam Narrative General Appearance: mild distress Lines, tubes and drains: peripheral HEENT: mucous membranes moist Neck: trach Respiratory/Chest: on vent Cardiovascular/Chest: tachycardia Abdomen: soft, no organomegaly, no mass, feeding tube Extremities: inflammation, slow capillary refill, moderate edema Skin Exam: warm/dry Neurologic: unresponsiveness . Last 24 Hour Vital Signs Date Time Temp Pulse Resp B/P (MAP) Pulse Ox O2 Delivery O2 Flow Rate FiO2 07/26/19 16:00 Trach Collar 07/26/19 16:00 40 07/26/19 16:00 67 07/26/19 16:00 100.0 69 19 152/78 (102) 96 07/26/19 15:20 69 22 40 07/26/19 12:00 40 07/26/19 12:00 Trach Collar 07/26/19 12:00 67 07/26/19 11:47 99.0 62 19 160/76 (104) 97 07/26/19 11:08 25 23 40 07/26/19 09:50 66 165/88 07/26/19 08:00 98.2 66 19 165/88 (113) 99 07/26/19 08:00 65 07/26/19 08:00 40 07/26/19 08:00 Trach Collar 07/26/19 07:28 64 16 40 07/26/19 04:00 40.0 07/26/19 04:00 Trach Collar 07/26/19 04:00 98.5 65 19 150/85 (106) 100 07/26/19 04:00 68 07/26/19 03:26 69 16 40 07/26/19 00:00 65 07/26/19 00:00 Trach Collar 07/26/19 00:00 98.9 69 18 145/99 (114) 100 07/26/19 00:00 40.0 07/25/19 23:13 Mechanical Ventilator 07/25/19 22:49 67 07/25/19 22:48 71 21 40 07/25/19 22:10 99.0 72 17 141/68 100 Mechanical Ventilator 40 07/25/19 20:27 99.0 66 16 176/94 100 Mechanical Ventilator 40 07/25/19 18:59 70 21 Mechanical Ventilator 40 07/25/19 18:59 99.3 70 21 140/70 98 Mechanical Ventilator 40 07/25/19 18:38 91 21 40 Intake and Output 07/25/19 07/26/19 19:00 07:00 Intake Total 2595 ml Output Total 100 ml 800 ml Balance -100 ml 1795 ml IV Total 2585 ml Tube Feeding 10 ml Output Urine Total 100 ml 800 ml # Bowel Movements 2 Laboratory Tests Test 07/25/19 18:30 07/25/19 20:02 07/26/19 03:40 07/26/19 06:00 White Blood Count 10.2 K/UL (4.8-10.8) 11.1 K/UL (4.8-10.8) H Red Blood Count 3.44 M/UL (4.70-6.10) L 3.20 M/UL (4.70-6.10) L Hemoglobin 8.7 G/DL (14.2-18.0) L 8.2 G/DL (14.2-18.0) L Hematocrit 29.5 % (42.0-52.0) L 25.4 % (42.0-52.0) L Mean Corpuscular Volume 86 FL (80-99) 80 FL (80-99) Mean Corpuscular Hemoglobin 25.4 PG (27.0-31.0) L 25.7 PG (27.0-31.0) L Mean Corpuscular Hemoglobin Concent 29.6 G/DL (32.0-36.0) L 32.3 G/DL (32.0-36.0) Red Cell Distribution Width 16.8 % (11.6-14.8) H 14.7 % (11.6-14.8) Platelet Count 169 K/UL (150-450) 168 K/UL (150-450) Mean Platelet Volume 10.0 FL (6.5-10.1) 7.9 FL (6.5-10.1) Neutrophils (%) (Auto) 62.8 % (45.0-75.0) 71.2 % (45.0-75.0) Lymphocytes (%) (Auto) 19.8 % (20.0-45.0) L 14.2 % (20.0-45.0) L Monocytes (%) (Auto) 11.2 % (1.0-10.0) H 9.1 % (1.0-10.0) Eosinophils (%) (Auto) 5.6 % (0.0-3.0) H 5.0 % (0.0-3.0) H Basophils (%) (Auto) 0.6 % (0.0-2.0) 0.5 % (0.0-2.0) Urine Color Pale yellow Yellow Urine Appearance Clear Slightly cloudy Urine pH 5 (4.5-8.0) 7 (4.5-8.0) Urine Specific [place] 1.010 (1.005-1.035) 1.005 (1.005-1.035) Urine Protein 2+ (NEGATIVE) H 2+ (NEGATIVE) H Urine Glucose (UA) Negative (NEGATIVE) Negative (NEGATIVE) Urine Ketones 1+ (NEGATIVE) H 1+ (NEGATIVE) H Urine Blood 1+ (NEGATIVE) H 4+ (NEGATIVE) H Urine Nitrite Negative (NEGATIVE) Negative (NEGATIVE) Urine Bilirubin Negative (NEGATIVE) Negative (NEGATIVE) Urine Urobilinogen Normal MG/DL (0.0-1.0) 1 MG/DL (0.0-1.0) H Urine Leukocyte Esterase 1+ (NEGATIVE) H 3+ (NEGATIVE) H Urine RBC 5-10 /HPF (0 - 0) H 10-15 /HPF (0 - 0) H Urine WBC 2-4 /HPF (0 - 0) 5-10 /HPF (0 - 0) H Urine Squamous Epithelial Cells Occasional /LPF Occasional /LPF Urine Calcium Oxalate Crystals Few /LPF (NONE) Urine Bacteria Few /HPF (NONE) Few /HPF (NONE) Sodium Level 144 MMOL/L (136-145) 145 MMOL/L (136-145) Potassium Level 3.2 MMOL/L (3.5-5.1) L 3.2 MMOL/L (3.5-5.1) L Chloride Level 104 MMOL/L (98-107) 109 MMOL/L (98-107) H Carbon Dioxide Level 28 MMOL/L (21-32) 28 MMOL/L (21-32) Anion Gap 12 mmol/L (5-15) 8 mmol/L (5-15) Blood Urea Nitrogen 23 mg/dL (7-18) H 21 mg/dL (7-18) H Creatinine 1.0 MG/DL (0.55-1.30) 0.7 MG/DL (0.55-1.30) Estimat Glomerular Filtration Rate > 60 mL/min (>60) > 60 mL/min (>60) Glucose Level 111 MG/DL (74-106) H 82 MG/DL (74-106) Lactic Acid Level 4.30 mmol/L (0.4-2.0) H 4.20 mmol/L (0.66-2.22) H Calcium Level 9.0 MG/DL (8.5-10.1) 8.4 MG/DL (8.5-10.1) L Total Bilirubin 0.2 MG/DL (0.2-1.0) 0.2 MG/DL (0.2-1.0) Aspartate Amino Transf (AST/SGOT) 30 U/L (15-37) 30 U/L (15-37) Alanine Aminotransferase (ALT/SGPT) 43 U/L (12-78) 33 U/L (12-78) Alkaline Phosphatase 65 U/L (46-116) 59 U/L (46-116) Pro-B-Type Natriuretic Peptide 934 pg/mL (0-125) H 1018 pg/mL (0-125) H Total Protein 6.6 G/DL (6.4-8.2) 6.5 G/DL (6.4-8.2) Albumin 2.1 G/DL (3.4-5.0) L 2.0 G/DL (3.4-5.0) L Globulin 4.5 g/dL Albumin/Globulin Ratio 0.5 (1.0-2.7) L Differential Total Cells Counted 100 Neutrophils % (Manual) 71 % (45-75) Lymphocytes % (Manual) 15 % (20-45) L Monocytes % (Manual) 10 % (1-10) Eosinophils % (Manual) 4 % (0-3) H Basophils % (Manual) 0 % (0-2) Band Neutrophils 0 % (0-8) Platelet Estimate Adequate Platelet Morphology Normal Hypochromasia 1+ Anisocytosis 1+ Erythrocyte Sedimentation Rate 82 MM/HR (0-20) H Hemoglobin A1c 6.6 % (4.3-6.0) H Magnesium Level 1.7 MG/DL (1.8-2.4) L Direct Bilirubin < 0.1 MG/DL (0.0-0.3) C-Reactive Protein, Quantitative 21.4 mg/dL (0.00-0.90) H Thyroid Stimulating Hormone (TSH) 2.541 uiU/mL (0.358-3.740) Free Thyroxine 1.15 NG/DL (0.76-1.46) Test 07/26/19 08:00 07/26/19 12:35 Lactic Acid Level 1.00 mmol/L (0.4-2.0) Reticulocyte Count 1.0 % (0.5-2.0) Prothrombin Time 11.0 SEC (9.30-11.50) Prothromb Time International Ratio 1.0 (0.9-1.1) Activated Partial Thromboplast Time 24 SEC (23-33) Iron Level 12 ug/dL (50-175) L Total Iron Binding Capacity 224 ug/dL (250-450) L Percent Iron Saturation 5 % (15-50) L Unsaturated Iron Binding 212 ug/dL (112-346) Lactate Dehydrogenase 178 U/L (81-234) Carcinoembryonic Antigen Pending Vitamin B12 Level 600 PG/ML (193-986) Folate 70.5 NG/ML (8.6-58.9) H Microbiology Date/Time Source Procedure Growth Status 07/25/19 18:30 Rectum Received Height (Feet): 5 Height (Inches): 8.00 Weight (Pounds): 160 Medications Current Medications Medications (Trade) Dose Ordered Sig/Bhupinder Route PRN Reason Start Time Stop Time Status Last Admin Dose Admin Acetaminophen (Tylenol) 650 mg Q4H PRN GT fever and mild pain 07/26/19 16:30 08/25/19 16:29 Albuterol Sulfate (Proventil MDI) 2 puff Q3H PRN INH Shortness of Breath 07/26/19 16:30 10/24/19 16:29 Ascorbic Acid (Vitamin C) 500 mg DAILY GT 07/27/19 09:00 08/26/19 08:59 Atorvastatin Calcium (Lipitor) 10 mg BEDTIME GT 07/26/19 21:00 10/24/19 20:59 Chlorhexidine Gluconate (Jasmin-Hex 2%) 1 applic DAILY@1999 TOPIC 07/26/19 20:00 10/24/19 19:59 Clonidine HCl (Catapres Tab) 0.1 mg Q8H PRN GT For High Blood Pressure 07/26/19 16:44 10/24/19 16:43 Dextrose (Dextrose 50%) 25 ml Q30M PRN IV Hypoglycemia 07/26/19 16:30 10/24/19 16:29 Dextrose (Dextrose 50%) 50 ml Q30M PRN IV Hypoglycemia 07/26/19 16:30 10/24/19 16:29 Docusate Sodium (Colace) 100 mg DAILY GT 07/27/19 09:00 08/26/19 08:59 Ferrous Sulfate (Feosol) 325 mg DAILY GT 07/27/19 09:00 10/25/19 08:59 Glimepiride (AmaryL) 4 mg BID GT 07/26/19 18:00 08/25/19 17:59 07/26/19 17:15 Heparin Sodium (Porcine) (Heparin 5000 units/ml) 5,000 units EVERY 12 HOURS SUBQ 07/26/19 09:00 09/09/19 08:59 07/26/19 09:51 Heparin Sodium/ Sodium Chloride (Heparin 1000 units/500ml Premix) 1,000 unit ONCE PRN IV PICC PLACEMENT 07/26/19 08:45 07/27/19 23:59 Hydralazine HCl (Apresoline) 50 mg EVERY 8 HOURS GT 07/26/19 22:00 10/24/19 21:59 Insulin Aspart (NovoLOG) Q6HR SUBQ 07/26/19 18:00 10/24/19 16:29 07/26/19 17:28 Levetiracetam (Keppra) 1,500 mg DAILY GT 07/27/19 09:00 08/26/19 08:59 Lidocaine HCl (Xylocaine 1% 30ml) 30 ml ONCE PRN INJ PICC PLACEMENT 07/26/19 08:45 07/27/19 23:59 Lisinopril (PriniviL) 40 mg DAILY GT 07/27/19 09:00 08/26/19 08:59 Metformin HCl (Glucophage) 1,000 mg BID ORAL 07/26/19 18:00 08/25/19 17:59 07/26/19 17:15 Metoprolol Tartrate (Lopressor) 50 mg Q12HR ORAL 07/26/19 09:00 10/24/19 08:59 07/26/19 09:50 Ondansetron HCl (Zofran) 4 mg Q4H PRN GT Nausea & Vomiting 07/26/19 16:30 08/25/19 16:29 Pantoprazole (Protonix) 40 mg EVERY 12 HOURS IVP 07/26/19 09:00 08/25/19 08:59 07/26/19 09:50 Topiramate (Topamax) 200 mg BID GT 07/26/19 18:00 08/25/19 17:59 07/26/19 17:15 Vancomycin HCl 750 mg/Dextrose 275 ml @ 184 mls/hr Q12H IVPB 07/26/19 02:00 07/31/19 01:59 07/26/19 14:21 Vitamin D (Vitamin D) 5,000 intlu DAILY GT 07/26/19 09:00 08/25/19 08:59 07/26/19 09:50 Zinc Oxide (Zinc Oxide) 1 applic THREE TIMES A DAY PRN TOPIC REDNESS 07/26/19 12:45 10/24/19 12:44 Assessment/Plan Assessment/Plan: Abx: Zosyn x1 07/24 IV Vancomycin 07/25- Assessment: Sepsis Probable PNA- r/o COVID19 -CXR: Retrocardiac atelectasis with possible tiny left pleural effusion, correlate to exclude pneumonia.Cardiomegaly. Low lung volumes with bronchovascular crowding. R elbow cellulitis- r/o abscess -CT R elbow: p -xray elbow: : Limited and essentially nondiagnostic. No definite acute abnormality -V. duplex: no DVT Low grade fever x1 Mild leukocytosis Probable Scabies hx of MSSA,CONS bacteremia 05/2018- suspected 2ry to PICC line Hx of providencia PNA 05/2018 Dm2 HTN CVA/TIA CHF seizure disorder contractures chronic resp failure s/p trach/vent dependant vegetative state 2ry to anoxic brain injury SNF resident (cristian hernández) Plan: -Continue IV Vancomycin #1 and start Cefepime for pneumonia coverage -Ivermectin and permethrin cream -f/u cx -Monitor CBC/CMP, temperatures -COVID19 isolation and testing -trach care -wound care -Sx and ortho f/u -sp cx -f/u CT Thank you for consulting [facility]. Will continue to follow along with you. Discussed with Consuelo Rodriguez M.D. Jul 26, 2019 18:31
--- NOTE | 2019-07-26 19:20 | NUR ---
HAND-OFF: Report given to MELISA Wade. Pt remains stable.
--- NOTE | 2019-07-26 19:20 | NUR ---
NURSE NOTES: Pt report received from MIN RN. pt remains stable. no acute neuro abnormalities noted. pt is trach vented sating at 98% O2, no acute resp distress noted. pt is on gambling monitor showing NSR, no acute cardiac abnormalities noted. pt bed is low, locked, armed, call light within reach, bed rails up times 3. will follow plan of care.
[2019-07-26 20:00] VITALS: BP 138/78
[2019-07-26] MEDS ORDERED: Atorvastatin 20mg tab GT SCH (21:00)
[2019-07-26] MEDS: Dyna-Hex 2% Top Sol 2oz TOPIC SCH (21:02)
[2019-07-26] MEDS: Acetaminophen 650mg/20.3ml GT PRN (21:03)
[2019-07-26] MEDS: HydrALAZINE 50mg tab GT SCH (21:24)
--- NOTE | 2019-07-26 21:28 | NUR ---
NURSE NOTES: ice packs placed on pts aux.
--- NOTE | 2019-07-26 21:30 | NUR ---
NURSE NOTES: spoke to Doctor Meg in person. relayed message that pt had an 2000 aux temp of 102.6F. he is aware of fever. he stated he will review labs. he understands that pt is on vanco and zosyn IV. he will then establish orders.
[2019-07-26] MEDS: Piperacillin/Tazobactam 3.375 GM in NS 110 ML IVPB SCH (23:00)
[2019-07-27] VITALS: BP 142/74
--- NOTE | 2019-07-27 02:30 | Progress Note ---
DATE: 07/26/2019 SUBJECTIVE: The patient is febrile without tachycardia. PHYSICAL EXAMINATION: VITAL SIGNS: Blood pressure is 135/76, his pulse is 78, respirations 20, and temperature is 100. HEENT: Eyes were normal. ENT, mucous membranes were moist and intact. NECK: Supple with no JVD without lymph nodes. Tracheostomy site is clean. LUNGS: Clear without rhonchi, rales, or wheezing. HEART: Normal sounds with regular beats. There is no tachycardia at rest. ABDOMEN: Soft, nontender with normal bowel sounds. Gastrostomy site is clean. EXTREMITIES: Warm without cyanosis, clubbing, or edema. LABORATORY AND DIAGNOSTIC DATA: His hemoglobin is 8.2, hematocrit 25.4 with MCV of 80, WBC 11.1, and platelets 168. His BUN and creatinine done today. His iron is 12 and saturation is 5. His LDH is 172. blood, sputum, urine . His venous duplex scan of the upper extremity was negative for DVT. His chest x-ray shows cardiomegaly, low lung volume, but does not show any infiltrate. His elbow x-ray shows that the right elbow joint is intact and not involved in the cellulitis. IMPRESSION: The patient was admitted for right elbow cellulitis that involved in the lower and third part of the arm to the elbow. The arm is warm, swollen, tender, and red. The patient currently is on vancomycin 750 mg IV piggyback q.12h. He was also on Zosyn 3.375 g IV piggyback q.6h. Repeat laboratory tests will be done in a.m. Janette Weaver M.D. DR: DEJON JOB#: [id number] CC:
[2019-07-27] MEDS: Vancomycin 750 MG in D5W 275 ML IVPB SCH ×2 (02:54→14:21)
[2019-07-27 04:00] VITALS: BP 158/74
[2019-07-27 04:52] LABS: BASOPHILS % (AUTO) 0.8 % (0.0-2.0); EOSINOPHILS % (AUTO) 4.4 % (0.0-3.0); HEMATOCRIT 25.1 % (42.0-52.0); HEMOGLOBIN 8.1 G/DL (14.2-18.0); LYMPHOCYTES % (AUTO) 24.1 % (20.0-45.0); MEAN CORPUSCULAR VOLUME 80 FL (80-99); MONOCYTES % (AUTO) 9.7 % (1.0-10.0); NEUTROPHILS % (AUTO) 61.1 % (45.0-75.0); PLATELET COUNT 171 K/UL (150-450); RED BLOOD COUNT 3.15 M/UL (4.70-6.10); RED CELL DISTRIBUTION WIDTH 14.8 % (11.6-14.8); WHITE BLOOD COUNT 8.2 K/UL (4.8-10.8)
[2019-07-27 05:18] LABS: ALANINE AMINOTRANSFERASE 31 U/L (12-78); ALBUMIN/GLOBULIN RATIO 0.5 (1.0-2.7); ALKALINE PHOSPHATASE 58 U/L (46-116); ANION GAP 7 mmol/L (5-15); ASPARTATE AMINO TRANSFERASE 19 U/L (15-37); BILIRUBIN,TOTAL 0.2 MG/DL (0.2-1.0); BLOOD UREA NITROGEN 19 mg/dL (7-18); CALCIUM 8.2 MG/DL (8.5-10.1); CARBON DIOXIDE 29 MMOL/L (21-32); CHLORIDE 111 MMOL/L (98-107); CREATININE 0.8 MG/DL (0.55-1.30); POTASSIUM 3.3 MMOL/L (3.5-5.1); SODIUM 147 MMOL/L (136-145)
[2019-07-27] MEDS: Piperacillin/Tazobactam 3.375 GM in NS 110 ML IVPB SCH ×3 (05:18→21:31)
[2019-07-27] MEDS: HydrALAZINE 50mg tab GT SCH ×3 (05:19→21:31)
[2019-07-27] MEDS: NovoLOG Insulin Flexpen SUBQ SCH ×3 (05:31→18:00)
--- NOTE | 2019-07-27 05:50 | NUR ---
NURSE NOTES: sputum culture sent to lab.
--- NOTE | 2019-07-27 07:13 | NUR ---
HAND-OFF: Report given to Radha VINCENT. Pt remains stable.
--- NOTE | 2019-07-27 07:21 | NUR ---
NURSE NOTES: Received patient's report from RN. Wade. Patient is obtuned. IV line is noted at left foot 22ga. PICC line insertion is scheduled this morning, waiting for the consent. Vent setting is per prescription. G-tube will be increase to the goal 65cc/hr as he tolerates. Will follow plan of care.
--- NOTE | 2019-07-27 07:47 | NUR ---
RD ASSESSMENT & RECOMMENDATIONS SEE CARE ACTIVITY FOR COMPLETE ASSESSMENT DAILY ESTIMATED NEEDS: Needs based on DM, critical care 68kg abw 22-28 kcals/kg 0942-3749 total kcals 1.2-2 g protein/kg 81-136 g total protein 25-30 mL/kg 3727-6399 total fluid mLs NUTRITION DIAGNOSIS: 1) Swallowing difficulty r/t respiratory status as evidenced by pt is vent dep via trach, on GT feeds CURRENT TF: Glucerna 1.2 @ 65ml/hr x 20 hrs ENTERAL NUTRITION RECOMMENDATIONS: Glucerna 1.2 @ 65ml/hr x 20 hrs to provide 1300ml, 1560kcal, 78g prot, 1046ml free water - Maintain current TF as ordered - Once in stock, add prosource 1 pack QD for additional 11g prot to better meet est needs - HOB over 30 degrees/ water flush 170ml q 6hrs For continuous run x 24 hrs, rec Glucerna 1.2 @ 55ml/hr x 24 hrs to provide 1320ml, 1584kcal, 79g prot, 1063ml free water ADDITIONAL RECOMMENDATIONS: (1) Per SNF: HT=66" YV=[id number] (June 2019) (2) Monitor lytes closely, replete as needed (3) Skin integrity: add Shoaib BID via PEG TF @ goal will provide 100% RDI (4) Monitor hydration status: Na and BUN elev -> rec adding water flushes
--- NOTE | 2019-07-27 07:55 | NUR ---
NURSE NOTES: Called patient's daughter, Teo Albright, to get the consent for PICC line, but nobody answered. Left a voice message. will contact her again. Awaiting for the response.
[2019-07-27 08:04] VITALS: BP 126/69
--- NOTE | 2019-07-27 08:13 | NUR ---
NURSE NOTES: Called Meg Camejo's office, to let him know patient's lab result. Left a message Patient Na+ level 147 (H), K+ level 3.3 (H). Awaiting for the response.
[2019-07-27] MEDS: Ascorbic Acid 500mg tab GT SCH (09:10)
[2019-07-27] MEDS: Glimepiride 4mg tab GT SCH ×2 (09:10→18:22)
[2019-07-27] MEDS: Pantoprazole Inj IVP SCH ×2 (09:10→21:30)
[2019-07-27] MEDS: Vitamin D 1000 IU Tab GT SCH (09:11)
--- NOTE | 2019-07-27 09:11 | NUR ---
NURSE NOTES: Received a call back from Dr. Weaver and gave telephone order for Kcl 40 meq. x 1 now and BMP in A.M. Order noted and carried out.
[2019-07-27] MEDS: levETIRAcetam 500mg/5ml Liquid GT SCH (09:14)
[2019-07-27] MEDS: metFORMIN 500mg tab ORAL SCH ×2 (09:14→18:22)
[2019-07-27] MEDS: Lisinopril 20mg tab GT SCH (09:15)
[2019-07-27] MEDS: Metoprolol Tartrate 50mg tab ORAL SCH ×2 (09:15→21:00)
[2019-07-27] MEDS: Topiramate 100mg tab GT SCH ×2 (09:15→18:22)
[2019-07-27] MEDS: Ferrous Sulfate 300 MG/5 ML UDC GT SCH (09:16)
--- NOTE | 2019-07-27 09:22 | Diagnostic Imaging Report ---
Procedure: XRAY Chest 1v Reason for study: Reason For Exam: [id number] Comparison films: 07/25/2019. FINDINGS: Tracheostomy remains in place. Vascularity is normal. Left lung infiltrates and effusion unchanged. Cardiomegaly and tortuous aorta unchanged. The bony thorax appear unremarkable. IMPRESSION: NO SIGNIFICANT CHANGE COMPARED TO PREVIOUS EXAM.
[2019-07-27] MEDS: Docusate 100mg/10ml Liq GT SCH (09:30)
[2019-07-27] MEDS: Heparin 5000 units/ml inj SUBQ SCH ×2 (09:33→21:00)
[2019-07-27 12:00] VITALS: BP 170/91
--- NOTE | 2019-07-27 13:18 | NUR ---
CASE MANAGEMENT: REVIEW SI: CELLULITIS RIGHT ARM . T 99.7 HR 68 RR 20 BP 170/91 SAT 100% MECH VENT FIO2 40 H/H 8.1/25.1 NA 147 K 3.3 CALCIUM 8.2 COVID-19 RESULTS PENDING IS: PROTONIX IV Q12HR VANCOMYCIN IV Q12HR ZOSYN IV Q8HR METFORMIN PO BID HEPARIN SUBQ Q12HR STEP DOWN UNIT STATUS DCP: PATIENT IS FROM [facility]
--- NOTE | 2019-07-27 13:28 | Infectious Diseases Prog Note ---
Assessment/Plan Assessment/Plan Assessment: Sepsis Probable PNA- r/o COVID19 (resident from SNF with large outbreak) -CXR: Retrocardiac atelectasis with possible tiny left pleural effusion, correlate to exclude pneumonia.Cardiomegaly. Low lung volumes with bronchovascular crowding. R elbow cellulitis- r/o abscess -CT R elbow: p -xray elbow: : Limited and essentially nondiagnostic. No definite acute abnormality -V. duplex: no DVT -07/24 Bcx NTD Fever Mild leukocytosis, SP Probable Scabies hx of MSSA,CONS bacteremia 05/2018- suspected 2ry to PICC line Hx of providencia PNA 05/2018 Dm2 HTN CVA/TIA CHF seizure disorder contractures chronic resp failure s/p trach/vent dependant vegetative state 2ry to anoxic brain injury SNF resident (cristian hernández) Plan: -Continue IV Vancomycin #2 and Zosyn #3 for pneumonia and cellulitis -Ivermectin and permethrin cream -f/u cx -Monitor CBC/CMP, temperatures -COVID19 isolation and testing -trach care -wound care -Sx and ortho f/u -sp cx -f/u CT Thank you for consulting [facility]. Will continue to follow along with you. Discussed with RN Subjective Allergies: Coded Allergies: No Known Allergies (Unverified , 05/27/18) Subjective Tm 102.8 leukocytosis resolved Objective Vital Signs Last 24 Hour Vital Signs Date Time Temp Pulse Resp B/P (MAP) Pulse Ox O2 Delivery O2 Flow Rate FiO2 07/27/19 12:00 99.7 68 20 170/91 (117) 100 07/27/19 12:00 40 07/27/19 11:48 67 14 40 07/27/19 09:15 126/69 07/27/19 09:15 63 126/69 07/27/19 08:31 63 07/27/19 08:04 99.3 61 20 126/69 (88) 100 07/27/19 08:00 40 07/27/19 08:00 Trach Collar 07/27/19 07:54 60 17 40 07/27/19 05:19 126/69 07/27/19 04:00 Trach Collar 07/27/19 04:00 40 07/27/19 04:00 99.5 67 20 158/74 (102) 99 07/27/19 04:00 71 07/27/19 03:30 65 20 40 07/27/19 00:00 Trach Collar 07/27/19 00:00 60 07/27/19 00:00 40 07/27/19 00:00 99.2 63 18 142/74 (96) 99 07/26/19 23:00 66 21 40 07/26/19 21:33 97.9 07/26/19 21:24 135/76 07/26/19 21:02 78 135/76 07/26/19 20:00 40 07/26/19 20:00 Trach Collar 07/26/19 20:00 102.6 65 18 138/78 (98) 99 07/26/19 20:00 62 07/26/19 19:10 70 20 40 07/26/19 16:00 Trach Collar 07/26/19 16:00 40 07/26/19 16:00 67 07/26/19 16:00 100.0 69 19 152/78 (102) 96 07/26/19 15:20 69 22 40 Height (Feet): 5 Height (Inches): 8.00 Weight (Pounds): 160 Objective not examined to limit [id number] exposure Microbiology Date/Time Source Procedure Growth Status 07/25/19 18:30 Blood Blood Culture - Preliminary NO GROWTH AFTER 24 HOURS Resulted 07/25/19 18:15 Blood Blood Culture - Preliminary NO GROWTH AFTER 24 HOURS Resulted 07/25/19 18:30 Rectum Received Laboratory Tests Test 07/27/19 03:10 White Blood Count 8.2 K/UL (4.8-10.8) Red Blood Count 3.15 M/UL (4.70-6.10) L Hemoglobin 8.1 G/DL (14.2-18.0) L Hematocrit 25.1 % (42.0-52.0) L Mean Corpuscular Volume 80 FL (80-99) Mean Corpuscular Hemoglobin 25.8 PG (27.0-31.0) L Mean Corpuscular Hemoglobin Concent 32.3 G/DL (32.0-36.0) Red Cell Distribution Width 14.8 % (11.6-14.8) Platelet Count 171 K/UL (150-450) Mean Platelet Volume 8.2 FL (6.5-10.1) Neutrophils (%) (Auto) 61.1 % (45.0-75.0) Lymphocytes (%) (Auto) 24.1 % (20.0-45.0) Monocytes (%) (Auto) 9.7 % (1.0-10.0) Eosinophils (%) (Auto) 4.4 % (0.0-3.0) H Basophils (%) (Auto) 0.8 % (0.0-2.0) Erythrocyte Sedimentation Rate 97 MM/HR (0-20) H Sodium Level 147 MMOL/L (136-145) H Potassium Level 3.3 MMOL/L (3.5-5.1) L Chloride Level 111 MMOL/L (98-107) H Carbon Dioxide Level 29 MMOL/L (21-32) Anion Gap 7 mmol/L (5-15) Blood Urea Nitrogen 19 mg/dL (7-18) H Creatinine 0.8 MG/DL (0.55-1.30) Estimat Glomerular Filtration Rate > 60 mL/min (>60) Glucose Level 126 MG/DL (74-106) H Hemoglobin A1c 6.5 % (4.3-6.0) H Calcium Level 8.2 MG/DL (8.5-10.1) L Total Bilirubin 0.2 MG/DL (0.2-1.0) Aspartate Amino Transf (AST/SGOT) 19 U/L (15-37) Alanine Aminotransferase (ALT/SGPT) 31 U/L (12-78) Alkaline Phosphatase 58 U/L (46-116) C-Reactive Protein, Quantitative 15.3 mg/dL (0.00-0.90) H Pro-B-Type Natriuretic Peptide 3559 pg/mL (0-125) H Total Protein 6.4 G/DL (6.4-8.2) Albumin 2.0 G/DL (3.4-5.0) L Globulin 4.4 g/dL Albumin/Globulin Ratio 0.5 (1.0-2.7) L Current Medications Medications (Trade) Dose Ordered Sig/Bhupinder Route PRN Reason Start Time Stop Time Status Last Admin Dose Admin Acetaminophen (Tylenol) 650 mg Q4H PRN GT fever and mild pain 07/26/19 16:30 08/25/19 16:29 07/26/19 21:03 Albuterol Sulfate (Proventil MDI) 2 puff Q3H PRN INH Shortness of Breath 07/26/19 16:30 10/24/19 16:29 Ascorbic Acid (Vitamin C) 500 mg DAILY GT 07/27/19 09:00 08/26/19 08:59 07/27/19 09:10 Atorvastatin Calcium (Lipitor) 10 mg BEDTIME GT 07/26/19 21:00 10/24/19 20:59 07/26/19 21:02 Chlorhexidine Gluconate (Jasmin-Hex 2%) 1 applic DAILY@1999 TOPIC 07/26/19 20:00 10/24/19 19:59 07/26/19 21:02 Clonidine HCl (Catapres Tab) 0.1 mg Q8H PRN GT For High Blood Pressure 07/26/19 16:44 10/24/19 16:43 Dextrose (Dextrose 50%) 25 ml Q30M PRN IV Hypoglycemia 07/26/19 16:30 10/24/19 16:29 Dextrose (Dextrose 50%) 50 ml Q30M PRN IV Hypoglycemia 07/26/19 16:30 10/24/19 16:29 Docusate Sodium (Colace) 100 mg DAILY GT 07/27/19 09:00 08/26/19 08:59 07/27/19 09:30 Ferrous Sulfate (Feosol) 325 mg DAILY GT 07/27/19 09:00 10/25/19 08:59 07/27/19 09:16 Glimepiride (AmaryL) 4 mg BID GT 07/26/19 18:00 08/25/19 17:59 07/27/19 09:10 Heparin Sodium (Porcine) (Heparin 5000 units/ml) 5,000 units EVERY 12 HOURS SUBQ 07/26/19 09:00 09/09/19 08:59 07/27/19 09:33 Heparin Sodium/ Sodium Chloride (Heparin 1000 units/500ml Premix) 1,000 unit ONCE PRN IV PICC PLACEMENT 07/26/19 08:45 07/27/19 23:59 Hydralazine HCl (Apresoline) 50 mg EVERY 8 HOURS GT 07/26/19 22:00 10/24/19 21:59 07/27/19 05:19 Insulin Aspart (NovoLOG) Q6HR SUBQ 07/26/19 18:00 10/24/19 16:29 07/27/19 12:32 Levetiracetam (Keppra) 1,500 mg DAILY GT 07/27/19 09:00 08/26/19 08:59 07/27/19 09:14 Lidocaine HCl (Xylocaine 1% 30ml) 30 ml ONCE PRN INJ PICC PLACEMENT 07/26/19 08:45 07/27/19 23:59 Lisinopril (PriniviL) 40 mg DAILY GT 07/27/19 09:00 08/26/19 08:59 07/27/19 09:15 Metformin HCl (Glucophage) 1,000 mg BID ORAL 07/26/19 18:00 08/25/19 17:59 07/27/19 09:14 Metoprolol Tartrate (Lopressor) 50 mg Q12HR ORAL 07/26/19 09:00 10/24/19 08:59 07/27/19 09:15 Ondansetron HCl (Zofran) 4 mg Q4H PRN GT Nausea & Vomiting 07/26/19 16:30 08/25/19 16:29 Pantoprazole (Protonix) 40 mg EVERY 12 HOURS IVP 07/26/19 09:00 08/25/19 08:59 07/27/19 09:10 Piperacillin Sod/ Tazobactam Sod 3.375 gm/Sodium Chloride 110 ml @ 27.5 mls/hr EVERY 8 HOURS IVPB 07/26/19 23:00 07/31/19 22:59 07/27/19 05:18 Potassium Chloride (K-Dur) 40 meq TWICE A DAY GT 07/27/19 18:00 10/25/19 17:59 Topiramate (Topamax) 200 mg BID GT 07/26/19 18:00 08/25/19 17:59 07/27/19 09:15 Vancomycin HCl 750 mg/Dextrose 275 ml @ 184 mls/hr Q12H IVPB 07/26/19 02:00 07/31/19 01:59 07/27/19 02:54 Vitamin D (Vitamin D) 5,000 intlu DAILY GT 07/26/19 09:00 08/25/19 08:59 07/27/19 09:11 Zinc Oxide (Zinc Oxide) 1 applic THREE TIMES A DAY PRN TOPIC REDNESS 07/26/19 12:45 10/24/19 12:44 Consuelo Zambrano M.D. Jul 27, 2019 13:28
--- NOTE | 2019-07-27 15:55 | Surgery Progress Note ---
Surgery Progress Note Subjective Additional Comments labs noted exam stable on support no n/v/f/c ortho input appreciated Objective Last 24 Hour Vital Signs Date Time Temp Pulse Resp B/P (MAP) Pulse Ox O2 Delivery O2 Flow Rate FiO2 07/27/19 15:25 61 16 40 07/27/19 14:15 170/91 07/27/19 12:00 99.7 68 20 170/91 (117) 100 07/27/19 12:00 40 07/27/19 12:00 Trach Collar 07/27/19 11:48 67 14 40 07/27/19 11:45 60 07/27/19 09:15 126/69 07/27/19 09:15 63 126/69 07/27/19 08:31 63 07/27/19 08:04 99.3 61 20 126/69 (88) 100 07/27/19 08:00 40 07/27/19 08:00 Trach Collar 07/27/19 07:54 60 17 40 07/27/19 05:19 126/69 07/27/19 04:00 Trach Collar 07/27/19 04:00 40 07/27/19 04:00 99.5 67 20 158/74 (102) 99 07/27/19 04:00 71 07/27/19 03:30 65 20 40 07/27/19 00:00 Trach Collar 07/27/19 00:00 60 07/27/19 00:00 40 07/27/19 00:00 99.2 63 18 142/74 (96) 99 07/26/19 23:00 66 21 40 07/26/19 21:33 97.9 07/26/19 21:24 135/76 07/26/19 21:02 78 135/76 07/26/19 20:00 40 07/26/19 20:00 Trach Collar 07/26/19 20:00 102.6 65 18 138/78 (98) 99 07/26/19 20:00 62 07/26/19 19:10 70 20 40 07/26/19 16:00 Trach Collar 07/26/19 16:00 40 07/26/19 16:00 67 07/26/19 16:00 100.0 69 19 152/78 (102) 96 I&O Intake and Output 07/26/19 07/27/19 19:00 07:00 Intake Total 715 ml 1012.5 ml Output Total 450 ml Balance 265 ml 1012.5 ml Intake Free Water 100 ml IV Total 275 ml 412.5 ml Tube Feeding 340 ml 600 ml Output Urine Total 450 ml Dressing: other Wound: other Drains: other Cardiovascular: RSR Respiratory: decreased breath sounds Abdomen: soft, non-tender, present bowel sounds Extremities: no cyanosis Laboratory Tests Test 07/27/19 03:10 White Blood Count 8.2 K/UL (4.8-10.8) Red Blood Count 3.15 M/UL (4.70-6.10) L Hemoglobin 8.1 G/DL (14.2-18.0) L Hematocrit 25.1 % (42.0-52.0) L Mean Corpuscular Volume 80 FL (80-99) Mean Corpuscular Hemoglobin 25.8 PG (27.0-31.0) L Mean Corpuscular Hemoglobin Concent 32.3 G/DL (32.0-36.0) Red Cell Distribution Width 14.8 % (11.6-14.8) Platelet Count 171 K/UL (150-450) Mean Platelet Volume 8.2 FL (6.5-10.1) Neutrophils (%) (Auto) 61.1 % (45.0-75.0) Lymphocytes (%) (Auto) 24.1 % (20.0-45.0) Monocytes (%) (Auto) 9.7 % (1.0-10.0) Eosinophils (%) (Auto) 4.4 % (0.0-3.0) H Basophils (%) (Auto) 0.8 % (0.0-2.0) Erythrocyte Sedimentation Rate 97 MM/HR (0-20) H Sodium Level 147 MMOL/L (136-145) H Potassium Level 3.3 MMOL/L (3.5-5.1) L Chloride Level 111 MMOL/L (98-107) H Carbon Dioxide Level 29 MMOL/L (21-32) Anion Gap 7 mmol/L (5-15) Blood Urea Nitrogen 19 mg/dL (7-18) H Creatinine 0.8 MG/DL (0.55-1.30) Estimat Glomerular Filtration Rate > 60 mL/min (>60) Glucose Level 126 MG/DL (74-106) H Hemoglobin A1c 6.5 % (4.3-6.0) H Calcium Level 8.2 MG/DL (8.5-10.1) L Total Bilirubin 0.2 MG/DL (0.2-1.0) Aspartate Amino Transf (AST/SGOT) 19 U/L (15-37) Alanine Aminotransferase (ALT/SGPT) 31 U/L (12-78) Alkaline Phosphatase 58 U/L (46-116) C-Reactive Protein, Quantitative 15.3 mg/dL (0.00-0.90) H Pro-B-Type Natriuretic Peptide 3559 pg/mL (0-125) H Total Protein 6.4 G/DL (6.4-8.2) Albumin 2.0 G/DL (3.4-5.0) L Globulin 4.4 g/dL Albumin/Globulin Ratio 0.5 (1.0-2.7) L Plan Problems: (1) Cellulitis of right upper extremity Assessment & Plan: This is a 69-year-old male with fevers, leukocytosis, abnormal labs, right elbow cellulitis identified upper extremity. There is significant erythema edema without drainage or fluctuance. The edema is pitting and the right upper extremity does have a contracture at the level of the elbow. With gentle manipulation can slowly begin to straighten the elbow but does have overall limited movement. Plain films identified no fractures noted. No history of fall. No trauma identifiable on examination. Though this could potentially be a infectious process looks inflammatory in nature potentially dependent edema versus venous congestion. Ultrasound upper extremity will be ordered. Pillow to be placed underneath the axilla and to help elevate the elbow. Pillow placed in between the elbow to allow for some decompression. Will monitor skin closely as edema worsening and could breakdown. 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 Historical scar with hyperpigmentation Sacrum . Area of non-blanching erythema also noted at previously injured site. Base of scrotum is erythematous with partial thickness shearing. Generalized Maculopapular red rash noted. Cleanse GT site with Soap and tepid water. Apply Zinc Oxide Paste to GT site Three times daily. Apply Moisture Barrier Paste to Buttocks . Cover with Optifoam drsg. Change every 3 days and prn. Apply Moisture Barrier Paste to Scrotum with each Incontinence care. Reposition at least every 2hours or as tolerated. Off-load heels with Pillow. Jaden Doshi Jul 27, 2019 15:54
[2019-07-27 16:00] VITALS: BP 140/72
--- NOTE | 2019-07-27 19:38 | NUR ---
HAND-OFF: Report given to RN. Mauro Mark Pt remain stable.
[2019-07-27 20:00] VITALS: BP 130/61
[2019-07-27] MEDS: Dyna-Hex 2% Top Sol 2oz TOPIC SCH (20:00)
--- NOTE | 2019-07-27 23:10 | NUR ---
NURSE NOTES: called Teo Croswell daughter of pt. left a message to call back [facility] to obtain consent.
[2019-07-28] VITALS: BP 153/74
--- NOTE | 2019-07-28 01:15 | Progress Note ---
DATE: 07/27/2019 SUBJECTIVE: Patient is awake, alert, afebrile, and hemodynamically stable. PHYSICAL EXAMINATION: VITAL SIGNS: Blood pressure 170/91, his pulse is 68, respirations of 20, temperature 99.7. HEENT: Eyes were normal. ENT, mucous membranes were moist and intact. NECK: Supple with no JVD without lymph nodes. Tracheostomy site is clean. LUNGS: Clear without rhonchi, rales, or wheezing. HEART: Normal sounds with regular beats. There is no tachycardia at rest. ABDOMEN: Soft, nontender with normal bowel sounds. Gastrostomy site is clean. EXTREMITIES: Warm without cyanosis, clubbing, or edema. There is flexion contraction deformity of hips and knees, mainly on the right. LABORATORY AND DIAGNOSTIC DATA: Hemoglobin is 8.1, hematocrit 25.1 with MCV of 80, WBC of 8.2, and platelets is 171. His sedimentation rate is 97. His BUN and creatinine are 19 and 0.8 respectively. His sodium is 147, potassium 3.3, chloride 111, CO2 is 29. His HbA1c is 6.5. His CRP is 15. His blood cultures taken 2 days ago showed no growth after 24 hours. Chest x-ray done today revealed a left lung infiltrate and left pleural effusion. The right lung is clear and there is cardiomegaly. Patient was found to have scabies. COVID-19 is pending and he is in isolation. He is currently on vancomycin and Zosyn and given permethrin 5%. He also has seen by general surgeon to assess his decubitus ulcer, a guest experience specialist, and Dr. Otto Villareal. Initially, he was suspected to have infectious cellulitis; however, patient is not suspected of having infectious cellulitis after assessment and physical examination and radiology. Chest x-ray from today reveals no significant change since yesterday with a left lung infiltrate. We will continue with the same. In addition the patient will receive Augmentin 200 mg sublingual. Repeat laboratory tests will be done in the a.m. Janette Weaver M.D. DR: ALMA JOB#: [id number] CC:
[2019-07-28] MEDS: Vancomycin 750 MG in D5W 275 ML IVPB SCH ×2 (03:11→13:07)
[2019-07-28 04:00] VITALS: BP 163/78
[2019-07-28] MEDS: HydrALAZINE 50mg tab GT SCH ×4 (05:04→22:42)
[2019-07-28] MEDS: NovoLOG Insulin Flexpen SUBQ SCH ×5 (05:08→17:55)
[2019-07-28 05:11] LABS: HEMATOCRIT 24.2 % (42.0-52.0); HEMOGLOBIN 7.6 G/DL (14.2-18.0); MEAN CORPUSCULAR VOLUME 80 FL (80-99); PLATELET COUNT 186 K/UL (150-450); RED BLOOD COUNT 3.01 M/UL (4.70-6.10); WHITE BLOOD COUNT 10.4 K/UL (4.8-10.8)
[2019-07-28] MEDS: Piperacillin/Tazobactam 3.375 GM in NS 110 ML IVPB SCH ×3 (05:30→22:44)
[2019-07-28 05:46] LABS: ALANINE AMINOTRANSFERASE 24 U/L (12-78); ALBUMIN 1.8 G/DL (3.4-5.0); ALBUMIN/GLOBULIN RATIO 0.4 (1.0-2.7); ALKALINE PHOSPHATASE 52 U/L (46-116); ANION GAP 8 mmol/L (5-15); ASPARTATE AMINO TRANSFERASE 30 U/L (15-37); BILIRUBIN,TOTAL 0.3 MG/DL (0.2-1.0); BLOOD UREA NITROGEN 15 mg/dL (7-18); CALCIUM 8.3 MG/DL (8.5-10.1); CARBON DIOXIDE 28 MMOL/L (21-32); CHLORIDE 111 MMOL/L (98-107); CREATININE 0.8 MG/DL (0.55-1.30); POTASSIUM 3.6 MMOL/L (3.5-5.1); SODIUM 147 MMOL/L (136-145)
[2019-07-28 05:52] LABS: PHOSPHORUS 2.2 MG/DL (2.5-4.9)
--- NOTE | 2019-07-28 07:52 | NUR ---
HAND-OFF: Report given to MELISA Luevano. pt remains stable.
--- NOTE | 2019-07-28 07:55 | NUR ---
NURSE NOTES: Received report from MELISA Wade. The patient is resting on the bed and opening eyes with tactile stimuli. Communication made by facial expression. The patient is on following vent setting as ordered and oxygen saturation within normal range: Portex 7, AC 10, TV 500, FiO2 40%, PEEP 5. The patient's G-tube intact and patent and running Glucerna 1.2 @50mL/hr with goal of 65mL/hr for 20 hours. Will increase the tube feeding rate as tolerated. The patient's Crow intact and patent and draining by gravity. The patient's L calf 22G that is intact and patent. Skin issue noted and dressing is intact. The patient has POLINA cellulitis without DVT. The patient's bed in the lowest position, call light in reach, and fall, aspiration, and seizure precaution reinforced. Will follow up the order and lab. Will closely monitor the patient. Will continue plan of care.
[2019-07-28 08:00] VITALS: BP 153/71
--- NOTE | 2019-07-28 08:30 | NUR ---
NURSE NOTES: Reported abnormal lab to Dr. Weaver and Dr. Odom. No new order yet. Will follow up the order. Will closely monitor the patient. Will continue plan of care.
[2019-07-28] MEDS: Metoprolol Tartrate 50mg tab ORAL SCH ×2 (09:00→21:00)
[2019-07-28] MEDS: Heparin 5000 units/ml inj SUBQ SCH ×2 (09:00→22:45)
[2019-07-28] MEDS: Docusate 100mg/10ml Liq GT SCH (09:10)
[2019-07-28] MEDS: Glimepiride 4mg tab GT SCH ×2 (09:10→17:54)
[2019-07-28] MEDS: Ferrous Sulfate 300 MG/5 ML UDC GT SCH (09:10)
[2019-07-28] MEDS: levETIRAcetam 500mg/5ml Liquid GT SCH (09:11)
[2019-07-28] MEDS: Ascorbic Acid 500mg tab GT SCH (09:12)
[2019-07-28] MEDS: Lisinopril 20mg tab GT SCH (09:12)
[2019-07-28] MEDS: Topiramate 100mg tab GT SCH ×2 (09:12→17:55)
[2019-07-28] MEDS: metFORMIN 500mg tab ORAL SCH ×2 (09:13→17:55)
[2019-07-28] MEDS: Pantoprazole Inj IVP SCH ×2 (09:13→22:42)
[2019-07-28] MEDS: Vitamin D 1000 IU Tab GT SCH (09:13)
--- NOTE | 2019-07-28 09:30 | NUR ---
NURSE NOTES: Morning medications administered as ordered. Held heparin due to severe anemia. Held Metoprolol due to bradycardia with HR of low 50s. Awaiting for PICC line insertion. Will closely monitor the patient. Will continue plan of care.
[2019-07-28] MEDS ORDERED: Lidocaine 1% Plain 30 ml INJ ONE (09:45)
[2019-07-28] MEDS ORDERED: Heparin1,000 units/500ml Premix(Conc:2 units/ml) IV ONE (09:45)
--- NOTE | 2019-07-28 10:30 | NUR ---
NURSE NOTES: Dr. Odom ordered 1 unit PRBC transfusion. Will carry out the order as soon as possible. Will continue plan of care.
--- NOTE | 2019-07-28 11:02 | Pulmonolgy Critical Care Note ---
Critical Care - Asmt/Plan Problems: (1) Chronic respiratory failure (2) Severe sepsis (3) Nosocomial pneumonia (4) Cellulitis of right upper extremity (5) Severe anemia (6) Tracheostomy dependence (7) Contracture of joint of multiple sites (8) Diabetes mellitus (9) Vegetative state (10) Cerebrovascular accident (CVA) Respiratory: monitor respiratory rate, adjust FIO2, CXR Cardiac: continue pressors, continue to monitor HR/BP Renal: F/U I&O, keep IV fluid, check electrolytes Infectious Disease: check cultures Gastrointestinal: continue feedings/current rate, adjust feedings, start feedings Endocrine: monitor blood sugar Hematologic: monitor H/H, transfuse if hgb<8.5 Neurologic: PRN Ativan, keep patient comfortable Prophylaxis: Protonix, Heparin Disposition: keep in ICU Notes Reviewed: account support manager, cardio, renal Discussed with: nurses, consultants, case plannermanager programming - Objective Last 24 Hour Vital Signs Date Time Temp Pulse Resp B/P (MAP) Pulse Ox O2 Delivery O2 Flow Rate FiO2 07/28/19 09:12 153/71 07/28/19 09:00 52 153/71 07/28/19 07:10 58 17 40 07/28/19 05:30 163/71 07/28/19 04:00 Trach Collar 07/28/19 04:00 99.3 62 20 163/78 (106) 98 07/28/19 04:00 40 07/28/19 04:00 62 07/28/19 03:25 58 24 40 07/28/19 00:00 40 07/28/19 00:00 99.5 87 20 153/74 (100) 100 07/28/19 00:00 Trach Collar 07/28/19 00:00 61 07/27/19 23:14 62 18 40 07/27/19 21:31 130/61 07/27/19 21:00 51 130/61 07/27/19 20:00 Trach Collar 07/27/19 20:00 98.7 55 21 130/61 (84) 100 07/27/19 20:00 40 07/27/19 19:29 65 18 40 07/27/19 19:27 60 07/27/19 16:00 40 07/27/19 16:00 98.6 62 20 140/72 (94) 100 07/27/19 16:00 Trach Collar 07/27/19 15:25 61 16 40 07/27/19 15:22 60 07/27/19 14:15 170/91 07/27/19 12:00 99.7 68 20 170/91 (117) 100 07/27/19 12:00 40 07/27/19 12:00 Trach Collar 07/27/19 11:48 67 14 40 07/27/19 11:45 60 Status: obtunded Condition: critical HEENT: atraumatic Lungs: clear Heart: HR/BP stable Abdomen: soft, active bowel sounds Extremities: no C/C/E Micro: Microbiology Date/Time Source Procedure Growth Status 07/25/19 18:30 Blood Blood Culture - Preliminary NO GROWTH AFTER 48 HOURS Resulted 07/25/19 18:15 Blood Blood Culture - Preliminary NO GROWTH AFTER 48 HOURS Resulted 07/25/19 18:30 Nasal Nares MRSA Culture - Final NO METHICILLIN RESISTANT STAPH AUREUS... Complete 07/25/19 18:30 Nasopharynx Coronavirus COVID-19 PCR ([facility]) - Final Complete 07/25/19 18:30 Rectum - Final NO CARBAPENEM-RESISTANT ENTEROBACTERI... Complete 07/25/19 18:30 Rectum VRE Culture - Final Enterococcus Faecalis - Vre Complete Accucheck: 173 Critical Care - Subjective Interval Events: late note for 07/26 FI02: 40 Vent Support Breath Rate: 10 Vent Support Mode: AC Vent Tidal Volume: 500 Sputum Amount: Large PEEP: 5.0 PIP: 25 Tube Feeding Amount: 65 I&O: Intake and Output 07/27/19 07/28/19 19:00 07:00 Intake Total 800 ml 715 ml Output Total 400 ml 1000 ml Balance 400 ml -285 ml Intake Free Water 200 ml Tube Feeding 600 ml 715 ml Output Urine Total 400 ml 1000 ml # Bowel Movements 2 CXR: Left lung infiltrates and effusion unchanged. Yomi Odom MD Jul 28, 2019 11:02
--- NOTE | 2019-07-28 11:03 | Pulmonolgy Critical Care Note ---
Critical Care - Asmt/Plan Problems: (1) Chronic respiratory failure (2) Severe sepsis (3) Nosocomial pneumonia (4) Cellulitis of right upper extremity (5) Severe anemia (6) Tracheostomy dependence (7) Contracture of joint of multiple sites (8) Diabetes mellitus (9) Vegetative state (10) Cerebrovascular accident (CVA) Respiratory: monitor respiratory rate, adjust FIO2, CXR Cardiac: continue to monitor HR/BP Renal: F/U I&O, keep IV fluid, check electrolytes Infectious Disease: check cultures, continue antibiotics Gastrointestinal: continue feedings/current rate Endocrine: monitor blood sugar Hematologic: monitor H/H, transfuse if hgb<8.5 Neurologic: PRN Ativan, PRN Morphine, keep patient comfortable Affect: PRN ativan Disposition: keep in ICU Time Spent (Minutes): 40 Notes Reviewed: women's basketball coach, cardio, renal Discussed with: nurses, consultants, case management coordinatorexport freight manager - Objective Last 24 Hour Vital Signs Date Time Temp Pulse Resp B/P (MAP) Pulse Ox O2 Delivery O2 Flow Rate FiO2 07/28/19 09:12 153/71 07/28/19 09:00 52 153/71 07/28/19 07:10 58 17 40 07/28/19 05:30 163/71 07/28/19 04:00 Trach Collar 07/28/19 04:00 99.3 62 20 163/78 (106) 98 07/28/19 04:00 40 07/28/19 04:00 62 07/28/19 03:25 58 24 40 07/28/19 00:00 40 07/28/19 00:00 99.5 87 20 153/74 (100) 100 07/28/19 00:00 Trach Collar 07/28/19 00:00 61 07/27/19 23:14 62 18 40 07/27/19 21:31 130/61 07/27/19 21:00 51 130/61 07/27/19 20:00 Trach Collar 07/27/19 20:00 98.7 55 21 130/61 (84) 100 07/27/19 20:00 40 07/27/19 19:29 65 18 40 07/27/19 19:27 60 07/27/19 16:00 40 07/27/19 16:00 98.6 62 20 140/72 (94) 100 07/27/19 16:00 Trach Collar 07/27/19 15:25 61 16 40 07/27/19 15:22 60 07/27/19 14:15 170/91 07/27/19 12:00 99.7 68 20 170/91 (117) 100 07/27/19 12:00 40 07/27/19 12:00 Trach Collar 07/27/19 11:48 67 14 40 07/27/19 11:45 60 Status: obtunded Condition: critical HEENT: atraumatic Neck: trach Lungs: rales, rhonchi Heart: HR/BP stable Abdomen: soft, non-tender Extremities: no C/C/E Decubiti: location Micro: Microbiology Date/Time Source Procedure Growth Status 07/25/19 18:30 Blood Blood Culture - Preliminary NO GROWTH AFTER 48 HOURS Resulted 07/25/19 18:15 Blood Blood Culture - Preliminary NO GROWTH AFTER 48 HOURS Resulted 07/25/19 18:30 Nasal Nares MRSA Culture - Final NO METHICILLIN RESISTANT STAPH AUREUS... Complete 07/25/19 18:30 Nasopharynx Coronavirus COVID-19 PCR (BRIAN) - Final Complete 07/25/19 18:30 Rectum - Final NO CARBAPENEM-RESISTANT ENTEROBACTERI... Complete 07/25/19 18:30 Rectum VRE Culture - Final Enterococcus Faecalis - Vre Complete Accucheck: 173 Critical Care - Subjective ROS Limited/Unobtainable: Yes Condition: critical FI02: 40 Vent Support Breath Rate: 10 Vent Support Mode: AC Vent Tidal Volume: 500 Sputum Amount: Large PEEP: 5.0 PIP: 25 Fluids: kvo Tube Feeding Amount: 65 I&O: Intake and Output 07/27/19 07/28/19 19:00 07:00 Intake Total 800 ml 715 ml Output Total 400 ml 1000 ml Balance 400 ml -285 ml Intake Free Water 200 ml Tube Feeding 600 ml 715 ml Output Urine Total 400 ml 1000 ml # Bowel Movements 2 Yomi Odom MD Jul 28, 2019 11:03
[2019-07-28 12:00] VITALS: BP 147/82
--- NOTE | 2019-07-28 12:00 | NUR ---
NURSE NOTES: The patient is stable without acute distress or shortness of breath. The patient is tolerating vent setting well. G-tube feeding increased from Glucerna 1.2 @50mL/hr to 55mL/hr. Insulin given per protocol. Will closely monitor the patient. Will continue plan of care.
[2019-07-28] MEDS ORDERED: Heparin1,000 units/500ml Premix(Conc:2 units/ml) IV SCH (13:00)
[2019-07-28] MEDS ORDERED: Lidocaine 1% Plain 30 ml INJ SCH (13:00)
--- NOTE | 2019-07-28 13:00 | NUR ---
NURSE NOTES: PICC line team at the bedside for PICC line insertion with consent. Will closely monitor the patient. Will continue plan of care.
--- NOTE | 2019-07-28 13:43 | NUR ---
CASE MANAGEMENT: REVIEW SI: CELLULITIS RIGHT ARM . T 99.5 HR 51 RR 24 BP 163/78 SAT 98% TRACH COLLAR FIO2 40 H/H 7.6/24.2 NA 147 GLUCOSE 139 IS: PROTONIX IV Q12HR VANCOMYCIN IV Q12HR ZOSYN IV Q8HR METFORMIN PO BID NOVOLOG SUBQ Q6HR HEPARIN IV X1 TRANSFUSION PRBC 1 UNIT STEP DOWN UNIT STATUS DCP: PATIENT IS FROM [facility]
--- NOTE | 2019-07-28 15:00 | NUR ---
NURSE NOTES: OB stool collected and sent down to the lab per order. Bed bath given to the patient. Tolerating G tube feeding well. Will closely monitor the patient. Will continue plan of care.
--- NOTE | 2019-07-28 15:22 | NUR ---
RADIOLOGY NOTE: LEFT UPPER EXTREMITY PICC LINE PLACED BY DR. MAYTE HARRISON. FA
[2019-07-28] MEDS: Acetaminophen 650mg/20.3ml GT PRN (15:24)
--- NOTE | 2019-07-28 15:39 | Infectious Diseases Prog Note ---
Assessment/Plan Assessment/Plan Assessment: Sepsis Probable PNA- r/o COVID19 (resident from SNF with large outbreak) -07/26 CXR: Left lung infiltrates and effusion unchanged. -CXR: Retrocardiac atelectasis with possible tiny left pleural effusion, correlate to exclude pneumonia.Cardiomegaly. Low lung volumes with bronchovascular crowding. -07/24 SARS-Cov2 PCR neg R elbow cellulitis- r/o abscess -CT R elbow: p -xray elbow: : Limited and essentially nondiagnostic. No definite acute abnormality -V. duplex: no DVT -07/24 Bcx NTD Fever; improving Mild leukocytosis, SP Probable Scabies hx of MSSA,CONS bacteremia 05/2018- suspected 2ry to PICC line Hx of providencia PNA 05/2018 Dm2 HTN CVA/TIA CHF seizure disorder contractures chronic resp failure s/p trach/vent dependant vegetative state 2ry to anoxic brain injury SNF resident (cristian hernández) Plan: -Continue IV Vancomycin #3 and Zosyn #4 for pneumonia and cellulitis -Ivermectin and permethrin cream -f/u cx -Monitor CBC/CMP, temperatures -COVID19 isolation and testing; order 2nd sample -trach care -wound care -Sx and ortho f/u -sp cx -f/u CT Thank you for consulting [facility]. Will continue to follow along with you. Discussed with RN Subjective Allergies: Coded Allergies: No Known Allergies (Unverified , 05/27/18) Subjective afebrile >36hrs FIo2 40% no leukocytosis Bcx NTD 1st covid neg Objective Vital Signs Last 24 Hour Vital Signs Date Time Temp Pulse Resp B/P (MAP) Pulse Ox O2 Delivery O2 Flow Rate FiO2 07/28/19 13:06 147/82 07/28/19 11:35 59 07/28/19 11:10 57 18 40 07/28/19 09:12 153/71 07/28/19 09:00 52 153/71 07/28/19 07:10 58 17 40 07/28/19 05:30 163/71 07/28/19 04:00 Trach Collar 07/28/19 04:00 99.3 62 20 163/78 (106) 98 07/28/19 04:00 40 07/28/19 04:00 62 07/28/19 03:25 58 24 40 07/28/19 00:00 40 07/28/19 00:00 99.5 87 20 153/74 (100) 100 07/28/19 00:00 Trach Collar 07/28/19 00:00 61 07/27/19 23:14 62 18 40 07/27/19 21:31 130/61 07/27/19 21:00 51 130/61 07/27/19 20:00 Trach Collar 07/27/19 20:00 98.7 55 21 130/61 (84) 100 07/27/19 20:00 40 07/27/19 19:29 65 18 40 07/27/19 19:27 60 07/27/19 16:00 40 07/27/19 16:00 98.6 62 20 140/72 (94) 100 07/27/19 16:00 Trach Collar 07/27/19 15:25 61 16 40 07/27/19 15:22 60 Height (Feet): 5 Height (Inches): 8.00 Weight (Pounds): 145 Objective not examined to limit COVId19 exposure Microbiology Date/Time Source Procedure Growth Status 07/25/19 18:30 Blood Blood Culture - Preliminary NO GROWTH AFTER 48 HOURS Resulted 07/25/19 18:15 Blood Blood Culture - Preliminary NO GROWTH AFTER 48 HOURS Resulted 07/25/19 18:30 Nasal Nares MRSA Culture - Final NO METHICILLIN RESISTANT STAPH AUREUS... Complete 07/25/19 18:30 Nasopharynx Coronavirus COVID-19 PCR (BRIAN) - Final Complete 07/25/19 18:30 Rectum - Final NO CARBAPENEM-RESISTANT ENTEROBACTERI... Complete 07/25/19 18:30 Rectum VRE Culture - Final Enterococcus Faecalis - Vre Complete Laboratory Tests Test 07/28/19 00:50 07/28/19 03:15 Vancomycin Level Trough 14.5 ug/mL (5.0-12.0) H White Blood Count 10.4 K/UL (4.8-10.8) Red Blood Count 3.01 M/UL (4.70-6.10) L Hemoglobin 7.6 G/DL (14.2-18.0) L Hematocrit 24.2 % (42.0-52.0) L Mean Corpuscular Volume 80 FL (80-99) Mean Corpuscular Hemoglobin 25.3 PG (27.0-31.0) L Mean Corpuscular Hemoglobin Concent 31.5 G/DL (32.0-36.0) L Red Cell Distribution Width 15.0 % (11.6-14.8) H Platelet Count 186 K/UL (150-450) Mean Platelet Volume 7.7 FL (6.5-10.1) Neutrophils (%) (Auto) % (45.0-75.0) Lymphocytes (%) (Auto) % (20.0-45.0) Monocytes (%) (Auto) % (1.0-10.0) Eosinophils (%) (Auto) % (0.0-3.0) Basophils (%) (Auto) % (0.0-2.0) Erythrocyte Sedimentation Rate 96 MM/HR (0-20) H Sodium Level 147 MMOL/L (136-145) H Potassium Level 3.6 MMOL/L (3.5-5.1) Chloride Level 111 MMOL/L (98-107) H Carbon Dioxide Level 28 MMOL/L (21-32) Anion Gap 8 mmol/L (5-15) Blood Urea Nitrogen 15 mg/dL (7-18) Creatinine 0.8 MG/DL (0.55-1.30) Estimat Glomerular Filtration Rate > 60 mL/min (>60) Glucose Level 139 MG/DL (74-106) H Calcium Level 8.3 MG/DL (8.5-10.1) L Phosphorus Level 2.2 MG/DL (2.5-4.9) L Magnesium Level 1.9 MG/DL (1.8-2.4) Total Bilirubin 0.3 MG/DL (0.2-1.0) Aspartate Amino Transf (AST/SGOT) 30 U/L (15-37) Alanine Aminotransferase (ALT/SGPT) 24 U/L (12-78) Alkaline Phosphatase 52 U/L (46-116) C-Reactive Protein, Quantitative 8.9 mg/dL (0.00-0.90) H Total Protein 6.0 G/DL (6.4-8.2) L Albumin 1.8 G/DL (3.4-5.0) L Globulin 4.2 g/dL Albumin/Globulin Ratio 0.4 (1.0-2.7) L Current Medications Medications (Trade) Dose Ordered Sig/Bhupinder Route PRN Reason Start Time Stop Time Status Last Admin Dose Admin Acetaminophen (Tylenol) 650 mg Q4H PRN GT fever and mild pain 07/26/19 16:30 08/25/19 16:29 07/26/19 21:03 Albuterol Sulfate (Proventil MDI) 2 puff Q3H PRN INH Shortness of Breath 07/26/19 16:30 10/24/19 16:29 Ascorbic Acid (Vitamin C) 500 mg DAILY GT 07/27/19 09:00 08/26/19 08:59 07/28/19 09:12 Atorvastatin Calcium (Lipitor) 10 mg BEDTIME GT 07/26/19 21:00 10/24/19 20:59 07/27/19 21:30 Chlorhexidine Gluconate (Jasmni-Hex 2%) 1 applic DAILY@1999 TOPIC 07/26/19 20:00 10/24/19 19:59 07/26/19 21:02 Clonidine HCl (Catapres Tab) 0.1 mg Q8H PRN GT For High Blood Pressure 07/26/19 16:44 10/24/19 16:43 Dextrose (Dextrose 50%) 25 ml Q30M PRN IV Hypoglycemia 07/26/19 16:30 10/24/19 16:29 Dextrose (Dextrose 50%) 50 ml Q30M PRN IV Hypoglycemia 07/26/19 16:30 10/24/19 16:29 Docusate Sodium (Colace) 100 mg DAILY GT 07/27/19 09:00 08/26/19 08:59 07/28/19 09:10 Ferrous Sulfate (Feosol) 325 mg DAILY GT 07/27/19 09:00 10/25/19 08:59 07/28/19 09:10 Glimepiride (AmaryL) 4 mg BID GT 07/26/19 18:00 08/25/19 17:59 07/28/19 09:10 Heparin Sodium (Porcine) (Heparin 5000 units/ml) 5,000 units EVERY 12 HOURS SUBQ 07/26/19 09:00 09/09/19 08:59 07/27/19 09:33 Hydralazine HCl (Apresoline) 50 mg EVERY 8 HOURS GT 07/26/19 22:00 10/24/19 21:59 07/28/19 13:06 Insulin Aspart (NovoLOG) Q6HR SUBQ 07/26/19 18:00 10/24/19 16:29 07/28/19 12:23 Levetiracetam (Keppra) 1,500 mg DAILY GT 07/27/19 09:00 08/26/19 08:59 07/28/19 09:11 Lisinopril (PriniviL) 40 mg DAILY GT 07/27/19 09:00 08/26/19 08:59 07/28/19 09:12 Metformin HCl (Glucophage) 1,000 mg BID ORAL 07/26/19 18:00 08/25/19 17:59 07/28/19 09:13 Metoprolol Tartrate (Lopressor) 50 mg Q12HR ORAL 07/26/19 09:00 10/24/19 08:59 07/27/19 09:15 Ondansetron HCl (Zofran) 4 mg Q4H PRN GT Nausea & Vomiting 07/26/19 16:30 08/25/19 16:29 Pantoprazole (Protonix) 40 mg EVERY 12 HOURS IVP 07/26/19 09:00 08/25/19 08:59 07/28/19 09:13 Piperacillin Sod/ Tazobactam Sod 3.375 gm/Sodium Chloride 110 ml @ 27.5 mls/hr EVERY 8 HOURS IVPB 07/26/19 23:00 07/31/19 22:59 07/28/19 14:45 Potassium Chloride (K-Dur) 40 meq TWICE A DAY GT 07/27/19 18:00 10/25/19 17:59 07/28/19 09:11 Topiramate (Topamax) 200 mg BID GT 07/26/19 18:00 08/25/19 17:59 07/28/19 09:12 Vancomycin HCl 750 mg/Dextrose 275 ml @ 184 mls/hr Q12H IVPB 07/26/19 02:00 07/31/19 01:59 07/28/19 13:07 Vitamin D (Vitamin D) 5,000 intlu DAILY GT 07/26/19 09:00 08/25/19 08:59 07/28/19 09:13 Zinc Oxide (Zinc Oxide) 1 applic THREE TIMES A DAY PRN TOPIC REDNESS 07/26/19 12:45 10/24/19 12:44 Consuelo Zambrano M.D. Jul 28, 2019 15:39
[2019-07-28 16:00] VITALS: BP 150/76
--- NOTE | 2019-07-28 16:02 | Brief Operative Note ---
Immediate Post Operative Note Operative Note Pre-op Diagnosis: needs adjunct faculty for medical terminology IV access Procedure: PICC Post-op Diagnosis: same as pre-op Surgeon: Jose L Amaya Anesthesia: local Specimen: none Complications: none Fluids: none Implant(s) used?: No Sarabjit Amaya MD Jul 28, 2019 16:02
--- NOTE | 2019-07-28 16:05 | NUR ---
NURSE NOTES: Obtained okay to use PICC line order from Dr. Hansen. Will start blood transfusion as soon as possible. Will continue plan of care.
--- NOTE | 2019-07-28 16:30 | NUR ---
NURSE NOTES: Started 1 unit PRBC blood transfusion per order. Will recheck the patient and vital signs in 15 minutes. Will closely monitor the patient. Will continue plan of care.
--- NOTE | 2019-07-28 17:10 | Diagnostic Imaging Report ---
Indications: Needs long-term IV access Technique: Procedure performed at bedside. Procedural timeout performed. Ultrasound confirms patent compressible left brachial vein. Total sterile technique, including sterile probe cover and sterile gel, sterile gloves, hand hygiene, hat, mask,, sterile gown, large sterile drape, and preparation with 2% chlorhexidine utilized. Local anesthesia with 1% lidocaine. Under real-time ultrasound guidance, puncture brachial vein using 21-gauge needle, passage 0.018 guidewire, exchange for 4 British peel-away sheath. 4 British Bard dual-lumen power PICC cut to 37 cm. It was inserted through the peel-away sheath. Peel-away sheath and guidewire removed. Catheter fixed to the skin. Both catheter ports aspirated and flushed. Patient tolerated procedure well, without immediate complication. Followup chest x-ray obtained, documents catheter tip position at the mid superior vena cava Impression: Successful bedside placement of left arm PICC under sonographic guidance, as described above.
--- NOTE | 2019-07-28 18:00 | NUR ---
NURSE NOTES: The patient is tolerating 1 unit PRBC transfusion well. The patient is tolerating vent setting well. The patient is tolerating G tube feeding well. Will closely monitor the patient. Will continue plan of care.
--- NOTE | 2019-07-28 18:30 | NUR ---
NURSE NOTES: COVID swab done and sent down to the lab as ordered. Will continue plan of care.
--- NOTE | 2019-07-28 19:15 | NUR ---
NURSE NOTES: Received pt from Chloé Lau RN. Patient resting on the bed and opening eyes with tactile stimuli. Pt is obtunded. On trach to vent w/settings as follow: Portex 7, AC 10, TV 500, FiO2 40%, P/5. G-tube intact and patent and infusing Glucerna 1.2 @55mL/hr. Will increase feeding rate as tolerated. HOB elevated. F/c draining well of clear norma urine. POLINA cellulitis is red w/moderate swelling and without DVT per venous duplex . Bed in the lowest position, call light in reach, fall, aspiration, and seizure precaution observed. Bed alarm engaged. VSS Afebrile. SR-SB on frame runner. Will continue POC
--- NOTE | 2019-07-28 19:30 | NUR ---
NURSE NOTES: 1 unit PRBC transfusion completed per order. The patient is stable at this time. Stable vital signs noted. Will continue plan of care.
--- NOTE | 2019-07-28 19:40 | NUR ---
HAND-OFF: Report given to MELISA Wade. The patient is stable at this time. Endorsed plan of care.
[2019-07-28 20:00] VITALS: BP 177/78
--- NOTE | 2019-07-28 20:43 | Surgery Progress Note ---
Surgery Progress Note Subjective Additional Comments leukocytosis resolved esr/crp noted exam stable cellulitis stable Objective Last 24 Hour Vital Signs Date Time Temp Pulse Resp B/P (MAP) Pulse Ox O2 Delivery O2 Flow Rate FiO2 07/28/19 16:00 98.2 63 20 150/76 (100) 100 07/28/19 16:00 56 07/28/19 16:00 40 07/28/19 16:00 Mechanical Ventilator 07/28/19 15:23 172/80 07/28/19 14:40 72 20 40 07/28/19 13:06 147/82 07/28/19 12:00 40 07/28/19 12:00 Mechanical Ventilator 07/28/19 12:00 98.8 60 20 147/82 (103) 100 07/28/19 11:35 59 07/28/19 11:10 57 18 40 07/28/19 09:12 153/71 07/28/19 09:00 52 153/71 07/28/19 08:00 Mechanical Ventilator 07/28/19 08:00 98.9 57 20 153/71 (98) 100 07/28/19 08:00 59 07/28/19 08:00 40 07/28/19 07:10 58 17 40 07/28/19 05:30 163/71 07/28/19 04:00 Trach Collar 07/28/19 04:00 99.3 62 20 163/78 (106) 98 07/28/19 04:00 40 07/28/19 04:00 62 07/28/19 03:25 58 24 40 07/28/19 00:00 40 07/28/19 00:00 99.5 87 20 153/74 (100) 100 07/28/19 00:00 Trach Collar 07/28/19 00:00 61 07/27/19 23:14 62 18 40 07/27/19 21:31 130/61 07/27/19 21:00 51 130/61 I&O Intake and Output 07/27/19 07/28/19 19:00 07:00 Intake Total 800 ml 815 ml Output Total 400 ml 1000 ml Balance 400 ml -185 ml Intake Free Water 200 ml 50 ml Tube Feeding 600 ml 765 ml Output Urine Total 400 ml 1000 ml # Bowel Movements 2 Dressing: other Wound: other Drains: other Cardiovascular: RSR Respiratory: decreased breath sounds Abdomen: soft, non-tender, present bowel sounds Extremities: no cyanosis Laboratory Tests Test 07/28/19 00:50 07/28/19 03:15 Vancomycin Level Trough 14.5 ug/mL (5.0-12.0) H White Blood Count 10.4 K/UL (4.8-10.8) Red Blood Count 3.01 M/UL (4.70-6.10) L Hemoglobin 7.6 G/DL (14.2-18.0) L Hematocrit 24.2 % (42.0-52.0) L Mean Corpuscular Volume 80 FL (80-99) Mean Corpuscular Hemoglobin 25.3 PG (27.0-31.0) L Mean Corpuscular Hemoglobin Concent 31.5 G/DL (32.0-36.0) L Red Cell Distribution Width 15.0 % (11.6-14.8) H Platelet Count 186 K/UL (150-450) Mean Platelet Volume 7.7 FL (6.5-10.1) Neutrophils (%) (Auto) % (45.0-75.0) Lymphocytes (%) (Auto) % (20.0-45.0) Monocytes (%) (Auto) % (1.0-10.0) Eosinophils (%) (Auto) % (0.0-3.0) Basophils (%) (Auto) % (0.0-2.0) Erythrocyte Sedimentation Rate 96 MM/HR (0-20) H Sodium Level 147 MMOL/L (136-145) H Potassium Level 3.6 MMOL/L (3.5-5.1) Chloride Level 111 MMOL/L (98-107) H Carbon Dioxide Level 28 MMOL/L (21-32) Anion Gap 8 mmol/L (5-15) Blood Urea Nitrogen 15 mg/dL (7-18) Creatinine 0.8 MG/DL (0.55-1.30) Estimat Glomerular Filtration Rate > 60 mL/min (>60) Glucose Level 139 MG/DL (74-106) H Calcium Level 8.3 MG/DL (8.5-10.1) L Phosphorus Level 2.2 MG/DL (2.5-4.9) L Magnesium Level 1.9 MG/DL (1.8-2.4) Total Bilirubin 0.3 MG/DL (0.2-1.0) Aspartate Amino Transf (AST/SGOT) 30 U/L (15-37) Alanine Aminotransferase (ALT/SGPT) 24 U/L (12-78) Alkaline Phosphatase 52 U/L (46-116) C-Reactive Protein, Quantitative 8.9 mg/dL (0.00-0.90) H Total Protein 6.0 G/DL (6.4-8.2) L Albumin 1.8 G/DL (3.4-5.0) L Globulin 4.2 g/dL Albumin/Globulin Ratio 0.4 (1.0-2.7) L Plan Problems: (1) Cellulitis of right upper extremity Assessment & Plan: This is a 69-year-old male with fevers, leukocytosis, abnormal labs, right elbow cellulitis identified upper extremity. There is significant erythema edema without drainage or fluctuance. The edema is pitting and the right upper extremity does have a contracture at the level of the elbow. With gentle manipulation can slowly begin to straighten the elbow but does have overall limited movement. Plain films identified no fractures noted. No history of fall. No trauma identifiable on examination. Though this could potentially be a infectious process looks inflammatory in nature potentially dependent edema versus venous congestion. Ultrasound upper extremity will be ordered. Pillow to be placed underneath the axilla and to help elevate the elbow. Pillow placed in between the elbow to allow for some decompression. Will monitor skin closely as edema worsening and could breakdown. 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 Historical scar with hyperpigmentation Sacrum . Area of non-blanching erythema also noted at previously injured site. Base of scrotum is erythematous with partial thickness shearing. Generalized Maculopapular red rash noted. Cleanse GT site with Soap and tepid water. Apply Zinc Oxide Paste to GT site Three times daily. Apply Moisture Barrier Paste to Buttocks . Cover with Optifoam drsg. Change every 3 days and prn. Apply Moisture Barrier Paste to Scrotum with each Incontinence care. Reposition at least every 2hours or as tolerated. Off-load heels with Pillow. Jaden Doshi Jul 28, 2019 20:43
[2019-07-28] MEDS: Dyna-Hex 2% Top Sol 2oz TOPIC SCH (22:41)
[2019-07-29] VITALS: BP 175/77
[2019-07-29 04:00] VITALS: BP 175/72
--- NOTE | 2019-07-29 04:00 | NUR ---
NURSE NOTES: Sleeping off and on. No distress noted. Tolerating G-tube feeding well w/0 residual. No significant changes. Will continue POC
[2019-07-29] MEDS: Vancomycin 750 MG in D5W 275 ML IVPB SCH ×2 (04:22→14:39)
[2019-07-29] MEDS: NovoLOG Insulin Flexpen SUBQ SCH ×5 (05:05→23:47)
[2019-07-29] MEDS: Piperacillin/Tazobactam 3.375 GM in NS 110 ML IVPB SCH ×3 (06:13→21:24)
[2019-07-29] MEDS: HydrALAZINE 50mg tab GT SCH ×3 (06:13→21:23)
--- NOTE | 2019-07-29 07:15 | NUR ---
NURSE NOTES: Report received from Mauro Rizzo RN.Pt asleep noted no resp distress with trach tube to Vent,ordered vent settings tolerated,no signs of pain or discomfort SR on the monitor,GTF Glucerna 1.2 at 55ml/hr goal is 65ml/hr,no residual noted,Crow cath draining yellow urine,IV to ANGELES PICC line intact,skin warm and dry,SR up x2 HOB elevated ,bed lock in lowest position,will continue with plans of care.
--- NOTE | 2019-07-29 07:30 | NUR ---
NURSE NOTES: Report given to Meenu IsidroRN
[2019-07-29 08:00] VITALS: BP 153/60
[2019-07-29] MEDS: Ferrous Sulfate 300 MG/5 ML UDC GT SCH (09:00)
[2019-07-29] MEDS: metFORMIN 500mg tab ORAL SCH ×2 (09:26→18:37)
[2019-07-29] MEDS: Vitamin D 1000 IU Tab GT SCH (09:26)
[2019-07-29] MEDS: Glimepiride 4mg tab GT SCH ×2 (09:26→18:41)
[2019-07-29] MEDS: Lisinopril 20mg tab GT SCH (09:27)
[2019-07-29] MEDS: Topiramate 100mg tab GT SCH ×2 (09:29→18:38)
[2019-07-29] MEDS: Metoprolol Tartrate 50mg tab ORAL SCH ×2 (09:31→21:22)
[2019-07-29] MEDS: Ascorbic Acid 500mg tab GT SCH (09:32)
[2019-07-29] MEDS: Pantoprazole Inj IVP SCH ×2 (09:33→21:22)
[2019-07-29] MEDS: Heparin 5000 units/ml inj SUBQ SCH ×2 (09:34→21:00)
[2019-07-29] MEDS: levETIRAcetam 500mg/5ml Liquid GT SCH (09:35)
[2019-07-29] MEDS: Docusate 100mg/10ml Liq GT SCH (09:36)
--- NOTE | 2019-07-29 10:54 | NUR ---
RD ASSESSMENT & RECOMMENDATIONS SEE CARE ACTIVITY FOR COMPLETE ASSESSMENT DAILY ESTIMATED NEEDS: Needs based on DM, critical care 68kg abw 22-28 kcals/kg 6307-2245 total kcals 1.2-2 g protein/kg 81-136 g total protein 25-30 mL/kg 8027-6511 total fluid mLs NUTRITION DIAGNOSIS: 1) Swallowing difficulty r/t respiratory status as evidenced by pt is vent dep via trach, on GT feeds CURRENT TF: Glucerna 1.2 @ 65ml/hr x 20 hrs ENTERAL NUTRITION RECOMMENDATIONS: Glucerna 1.2 @ 65ml/hr x 20 hrs to provide 1300ml, 1560kcal, 78g prot, 1046ml free water - Maintain current TF as ordered - Once in stock, add prosource 1 pack QD for additional 11g prot to better meet est needs - HOB over 30 degrees/ water flush 170ml q 6hrs For continuous run x 24 hrs, rec Glucerna 1.2 @ 55ml/hr x 24 hrs to provide 1320ml, 1584kcal, 79g prot, 1063ml free water ADDITIONAL RECOMMENDATIONS: (1) Per SNF: HT=66" [id number] (June 2019) (2) Monitor lytes closely, replete as needed (low phos) (3) Skin integrity: add Shoaib BID via PEG TF @ goal will provide 100% RDI . .
--- NOTE | 2019-07-29 11:15 | Progress Note ---
DATE: 07/28/2019 SUBJECTIVE: The patient is afebrile. Hemodynamically stable. His blood pressure has been insufficiently controlled. PHYSICAL EXAMINATION: VITAL SIGNS: Blood pressure 177/78, pulse is 69, respirations of ____, temperature 98.5. HEENT: Eyes were normal. ENT, mucous membranes were moist and intact. NECK: Supple with no JVD without lymph nodes. Tracheostomy site is clean. LUNGS: Clear without rhonchi, rales, or wheezing. HEART: Normal sounds with regular beats. There is no tachycardia at rest. ABDOMEN: Soft, obese, and nontender with normal bowel sounds. Gastrostomy site is clean. EXTREMITIES: Warm without cyanosis, clubbing, or edema. The right elbow is less warm, less swollen, and less tender and the erythema is substantially less intent. LABORATORY AND DIAGNOSTIC DATA: Hemoglobin is 7.6, hematocrit 24.2 with MCV of 80, WBC of 10.4, and platelets is 186,000. His BUN and creatinine is 15 and 0.8 respectively. His sodium is 147, potassium 3.6, chloride 111, CO2 is 28. His phosphorus is 2.2 and magnesium is 1.9. His CRP is 8.9, down from 15.3. His rectal swab shows VRE because of the presence of Enterococcus faecalis. Chest x-ray yesterday revealed no significant change compared to July 25, 2019. There is left lung infiltrate and left pleural effusion. IMPRESSION AND PLAN: The patient is now on piperacillin 3.375 g IV q.8 h. He is improving on this antibiotic. Repeat laboratory tests will be done in the a.m. Janetet Weaver M.D. DR: CLAUDINE JOB#: [id number] CC:
[2019-07-29 12:00] VITALS: BP 125/61
--- NOTE | 2019-07-29 12:00 | NUR ---
NURSE NOTES: Oral/tracheal secretions suctioned PRN,oral care done,pulled up repositioned .
--- NOTE | 2019-07-29 12:37 | Pulmonolgy Critical Care Note ---
Critical Care - Asmt/Plan Problems: (1) Chronic respiratory failure (2) Severe sepsis (3) Nosocomial pneumonia (4) Cellulitis of right upper extremity (5) Severe anemia (6) Tracheostomy dependence (7) Contracture of joint of multiple sites (8) Diabetes mellitus (9) Vegetative state (10) Cerebrovascular accident (CVA) Respiratory: monitor respiratory rate, adjust FIO2, CXR Cardiac: continue to monitor HR/BP Renal: F/U I&O, keep IV fluid Infectious Disease: check cultures, continue antibiotics Gastrointestinal: continue feedings/current rate Endocrine: monitor blood sugar Hematologic: monitor H/H Neurologic: PRN Ativan Affect: PRN ativan Prophylaxis: Protonix Time Spent (Minutes): 40 Notes Reviewed: breast trimmer Discussed with: nurses, consultants, pillowcase makerretail department manager - Objective Last 24 Hour Vital Signs Date Time Temp Pulse Resp B/P (MAP) Pulse Ox O2 Delivery O2 Flow Rate FiO2 07/29/19 10:32 50 18 40 07/29/19 09:31 54 153/60 07/29/19 09:27 153/60 07/29/19 08:00 97.9 54 17 153/60 (91) 100 07/29/19 08:00 40 07/29/19 08:00 Mechanical Ventilator 07/29/19 07:59 54 17 40 07/29/19 07:42 46 07/29/19 06:14 175/72 07/29/19 06:13 175/72 07/29/19 04:00 Mechanical Ventilator 07/29/19 04:00 97.7 60 20 175/72 (106) 100 07/29/19 04:00 40 07/29/19 03:29 52 18 40 07/29/19 03:27 51 07/29/19 00:00 40 07/29/19 00:00 Mechanical Ventilator 07/29/19 00:00 98.5 61 21 175/77 (109) 100 07/28/19 23:46 56 18 40 07/28/19 23:28 54 07/28/19 22:42 177/78 07/28/19 21:00 69 177/78 07/28/19 20:00 Mechanical Ventilator 07/28/19 20:00 69 07/28/19 20:00 40 07/28/19 20:00 98.5 65 21 177/78 (111) 100 07/28/19 19:57 67 18 40 07/28/19 19:05 56 07/28/19 16:00 98.2 63 20 150/76 (100) 100 07/28/19 16:00 56 07/28/19 16:00 40 07/28/19 16:00 Mechanical Ventilator 07/28/19 15:23 172/80 07/28/19 14:40 72 20 40 07/28/19 13:06 147/82 Status: sedated Condition: critical HEENT: atraumatic Neck: full ROM Lungs: chest wall tender Heart: HR/BP stable Abdomen: soft Extremities: no C/C/E, edema Micro: Microbiology Date/Time Source Procedure Growth Status 07/26/19 15:40 Sputum Gram Stain - Final Resulted 07/26/19 15:40 Sputum Culture - Preliminary A.baumanii Complx - Mdr Gram Negative Bacillus 2 Resulted Accucheck: 162 Critical Care - Subjective ROS Limited/Unobtainable: Yes Condition: critical EKG Rhythm: Sinus Rhythm FI02: 40 Vent Support Breath Rate: 10 Vent Support Mode: AC Vent Tidal Volume: 500 Sputum Amount: Small PEEP: 5.0 PIP: 24 Tube Feeding Amount: 55 I&O: Intake and Output 07/28/19 07/29/19 18:59 06:59 Intake Total 735 ml 1145.0 ml Output Total 800 ml 850 ml Balance -65 ml 295.0 ml Intake Free Water 100 ml 100 ml IV Total 385.0 ml Tube Feeding 635 ml 660 ml Output Urine Total 800 ml 850 ml # Bowel Movements 2 4 Labs: Laboratory Tests Test 07/28/19 17:00 07/29/19 08:40 Stool Occult Blood Negative (NEGATIVE) Phosphorus Level 2.3 MG/DL (2.5-4.9) Yomi Lema MD Jul 29, 2019 12:37
--- NOTE | 2019-07-29 12:42 | NUR ---
CASE MANAGEMENT: REVIEW 07/29/2019 SI:SEPSIS. ACUTE AND Chronic respiratory failure VS: T 97.9 HR 54 RR 17 B/P 153/60 SATS 100% ON MECH VENT FIO2 40 LABS: PHOS 2.3 IS:HYDRALAZINE GT Q8H ZOSYN IV Q8H K DUR GT BID TOPAMAX GT BID KEPPRA GT QD LISINOPRIL GT QD VANCO IV Q12H LOPRESSOR PO Q12H INSULIN ASPART SUBQ Q6H SDU PLAN OF CARE: CT UPPER EXT W/ CON>>> ABSCESS
--- NOTE | 2019-07-29 12:47 | NUR ---
NURSE NOTES: Dr. Zambrano notified positive MDR sputum,will review
--- NOTE | 2019-07-29 13:15 | Infectious Diseases Prog Note ---
Assessment/Plan Assessment/Plan Assessment: Sepsis Probable PNA- r/o COVID19 (resident from SNF with large outbreak) -07/26 CXR: Left lung infiltrates and effusion unchanged. -07/25 sp cx MDR ABC (?colonizer), GNR #2 -CXR: Retrocardiac atelectasis with possible tiny left pleural effusion, correlate to exclude pneumonia.Cardiomegaly. Low lung volumes with bronchovascular crowding. -07/24 SARS-Cov2 PCR neg R elbow cellulitis- r/o abscess -CT R elbow: p -xray elbow: : Limited and essentially nondiagnostic. No definite acute abnormality -V. duplex: no DVT -07/24 Bcx NTD Fever; SP Mild leukocytosis, SP Probable Scabies hx of MSSA,CONS bacteremia 05/2018- suspected 2ry to PICC line Hx of providencia PNA 05/2018 Dm2 HTN CVA/TIA CHF seizure disorder contractures chronic resp failure s/p trach/vent dependant vegetative state 2ry to anoxic brain injury SNF resident ([facility]) Plan: -Continue IV Vancomycin #4 and Zosyn #5 for pneumonia and cellulitis (will continue as improved on this regimen) -await sputum cx results -07/26 SP Ivermectin and permethrin cream x1 -f/u cx -Monitor CBC/CMP, temperatures -COVID19 isolation and testing; await 2nd sample -trach care -wound care -Sx and ortho f/u -sp cx -f/u CT Thank you for consulting [facility]. Will continue to follow along with you. Discussed with RN Subjective Allergies: Coded Allergies: No Known Allergies (Unverified , 05/27/18) Subjective afebrile >48hrs FIo2 40% no leukocytosis Bcx NTD awaiting 2nd covid Objective Vital Signs Last 24 Hour Vital Signs Date Time Temp Pulse Resp B/P (MAP) Pulse Ox O2 Delivery O2 Flow Rate FiO2 07/29/19 10:32 50 18 40 07/29/19 09:31 54 153/60 07/29/19 09:27 153/60 07/29/19 08:00 97.9 54 17 153/60 (91) 100 07/29/19 08:00 40 07/29/19 08:00 Mechanical Ventilator 07/29/19 07:59 54 17 40 07/29/19 07:42 46 07/29/19 06:14 175/72 07/29/19 06:13 175/72 07/29/19 04:00 Mechanical Ventilator 07/29/19 04:00 97.7 60 20 175/72 (106) 100 07/29/19 04:00 40 07/29/19 03:29 52 18 40 07/29/19 03:27 51 07/29/19 00:00 40 07/29/19 00:00 Mechanical Ventilator 07/29/19 00:00 98.5 61 21 175/77 (109) 100 07/28/19 23:46 56 18 40 07/28/19 23:28 54 07/28/19 22:42 177/78 07/28/19 21:00 69 177/78 07/28/19 20:00 Mechanical Ventilator 07/28/19 20:00 69 07/28/19 20:00 40 07/28/19 20:00 98.5 65 21 177/78 (111) 100 07/28/19 19:57 67 18 40 07/28/19 19:05 56 07/28/19 16:00 98.2 63 20 150/76 (100) 100 07/28/19 16:00 56 07/28/19 16:00 40 07/28/19 16:00 Mechanical Ventilator 07/28/19 15:23 172/80 07/28/19 14:40 72 20 40 Height (Feet): 5 Height (Inches): 8.00 Weight (Pounds): 145 Objective not examined to limit COVId19 exposure Microbiology Date/Time Source Procedure Growth Status 07/26/19 15:40 Sputum Gram Stain - Final Resulted 07/26/19 15:40 Sputum Culture - Preliminary A.baumanii Complx - Mdr Gram Negative Bacillus 2 Resulted Laboratory Tests Test 07/28/19 17:00 07/29/19 08:40 Stool Occult Blood Negative (NEGATIVE) Phosphorus Level 2.3 MG/DL (2.5-4.9) L Current Medications Medications (Trade) Dose Ordered Sig/Bhupinder Route PRN Reason Start Time Stop Time Status Last Admin Dose Admin Acetaminophen (Tylenol) 650 mg Q4H PRN GT fever and mild pain 07/26/19 16:30 08/25/19 16:29 07/28/19 15:24 Albuterol Sulfate (Proventil MDI) 2 puff Q3H PRN INH Shortness of Breath 07/26/19 16:30 10/24/19 16:29 Ascorbic Acid (Vitamin C) 500 mg DAILY GT 07/27/19 09:00 08/26/19 08:59 07/29/19 09:32 Atorvastatin Calcium (Lipitor) 10 mg BEDTIME GT 07/26/19 21:00 10/24/19 20:59 07/28/19 22:42 Chlorhexidine Gluconate (Jasmin-Hex 2%) 1 applic DAILY@1999 TOPIC 07/26/19 20:00 10/24/19 19:59 07/28/19 22:41 Clonidine HCl (Catapres Tab) 0.1 mg Q8H PRN GT For High Blood Pressure 07/26/19 16:44 10/24/19 16:43 07/29/19 06:14 Dextrose (Dextrose 50%) 25 ml Q30M PRN IV Hypoglycemia 07/26/19 16:30 10/24/19 16:29 Dextrose (Dextrose 50%) 50 ml Q30M PRN IV Hypoglycemia 07/26/19 16:30 10/24/19 16:29 Docusate Sodium (Colace) 100 mg DAILY GT 07/27/19 09:00 08/26/19 08:59 07/29/19 09:36 Ferrous Sulfate (Feosol) 325 mg DAILY GT 07/27/19 09:00 10/25/19 08:59 07/29/19 09:00 Glimepiride (AmaryL) 4 mg BID GT 07/26/19 18:00 08/25/19 17:59 07/29/19 09:26 Heparin Sodium (Porcine) (Heparin 5000 units/ml) 5,000 units EVERY 12 HOURS SUBQ 07/26/19 09:00 09/09/19 08:59 07/29/19 09:34 Hydralazine HCl (Apresoline) 50 mg EVERY 8 HOURS GT 07/26/19 22:00 10/24/19 21:59 07/29/19 06:13 Insulin Aspart (NovoLOG) Q6HR SUBQ 07/26/19 18:00 10/24/19 16:29 07/29/19 11:52 Levetiracetam (Keppra) 1,500 mg DAILY GT 07/27/19 09:00 08/26/19 08:59 07/29/19 09:35 Lisinopril (PriniviL) 40 mg DAILY GT 07/27/19 09:00 08/26/19 08:59 07/29/19 09:27 Metformin HCl (Glucophage) 1,000 mg BID ORAL 07/26/19 18:00 08/25/19 17:59 07/29/19 09:26 Metoprolol Tartrate (Lopressor) 50 mg Q12HR ORAL 07/26/19 09:00 10/24/19 08:59 07/29/19 09:31 Ondansetron HCl (Zofran) 4 mg Q4H PRN GT Nausea & Vomiting 07/26/19 16:30 08/25/19 16:29 Pantoprazole (Protonix) 40 mg EVERY 12 HOURS IVP 07/26/19 09:00 08/25/19 08:59 07/29/19 09:33 Piperacillin Sod/ Tazobactam Sod 3.375 gm/Sodium Chloride 110 ml @ 27.5 mls/hr EVERY 8 HOURS IVPB 07/26/19 23:00 07/31/19 22:59 07/29/19 06:13 Potassium Chloride (K-Dur) 40 meq TWICE A DAY GT 07/27/19 18:00 10/25/19 17:59 07/29/19 09:30 Topiramate (Topamax) 200 mg BID GT 07/26/19 18:00 08/25/19 17:59 07/29/19 09:29 Vancomycin HCl 750 mg/Dextrose 275 ml @ 184 mls/hr Q12H IVPB 07/26/19 02:00 07/31/19 01:59 07/29/19 04:22 Vitamin D (Vitamin D) 5,000 intlu DAILY GT 07/26/19 09:00 08/25/19 08:59 07/29/19 09:26 Zinc Oxide (Zinc Oxide) 1 applic THREE TIMES A DAY PRN TOPIC REDNESS 07/26/19 12:45 10/24/19 12:44 Consuelo Zambrano M.D. Jul 29, 2019 13:15
[2019-07-29 16:00] VITALS: BP 124/64
--- NOTE | 2019-07-29 16:04 | Surgery Progress Note ---
Surgery Progress Note Subjective Additional Comments labs noted exam stable cellulitis mild improvement Objective Last 24 Hour Vital Signs Date Time Temp Pulse Resp B/P (MAP) Pulse Ox O2 Delivery O2 Flow Rate FiO2 07/29/19 14:46 56 16 40 07/29/19 14:39 125/61 07/29/19 12:00 98.2 54 19 125/61 (82) 100 07/29/19 12:00 Mechanical Ventilator 07/29/19 12:00 40 07/29/19 10:32 50 18 40 07/29/19 09:31 54 153/60 07/29/19 09:27 153/60 07/29/19 08:00 97.9 54 17 153/60 (91) 100 07/29/19 08:00 40 07/29/19 08:00 Mechanical Ventilator 07/29/19 07:59 54 17 40 07/29/19 07:42 46 07/29/19 06:14 175/72 07/29/19 06:13 175/72 07/29/19 04:00 Mechanical Ventilator 07/29/19 04:00 97.7 60 20 175/72 (106) 100 07/29/19 04:00 40 07/29/19 03:29 52 18 40 07/29/19 03:27 51 07/29/19 00:00 40 07/29/19 00:00 Mechanical Ventilator 07/29/19 00:00 98.5 61 21 175/77 (109) 100 07/28/19 23:46 56 18 40 07/28/19 23:28 54 07/28/19 22:42 177/78 07/28/19 21:00 69 177/78 07/28/19 20:00 Mechanical Ventilator 07/28/19 20:00 69 07/28/19 20:00 40 07/28/19 20:00 98.5 65 21 177/78 (111) 100 07/28/19 19:57 67 18 40 07/28/19 19:05 56 I&O Intake and Output 07/28/19 07/29/19 19:00 07:00 Intake Total 690 ml 1090.0 ml Output Total 800 ml 850 ml Balance -110 ml 240.0 ml Intake Free Water 50 ml 100 ml IV Total 385.0 ml Tube Feeding 640 ml 605 ml Output Urine Total 800 ml 850 ml # Bowel Movements 2 4 Dressing: other Wound: other Drains: other Cardiovascular: RSR Respiratory: decreased breath sounds Abdomen: soft, present bowel sounds, non-distended Extremities: edema, no cyanosis Laboratory Tests Test 07/28/19 17:00 07/29/19 08:40 Stool Occult Blood Negative (NEGATIVE) Phosphorus Level 2.3 MG/DL (2.5-4.9) L Plan Problems: (1) Cellulitis of right upper extremity Assessment & Plan: This is a 69-year-old male with fevers, leukocytosis, abnormal labs, right elbow cellulitis identified upper extremity. There is significant erythema edema without drainage or fluctuance. The edema is pitting and the right upper extremity does have a contracture at the level of the elbow. With gentle manipulation can slowly begin to straighten the elbow but does have overall limited movement. Plain films identified no fractures noted. No history of fall. No trauma identifiable on examination. Though this could potentially be a infectious process looks inflammatory in nature potentially dependent edema versus venous congestion. Ultrasound upper extremity will be ordered. Pillow to be placed underneath the axilla and to help elevate the elbow. Pillow placed in between the elbow to allow for some decompression. Will monitor skin closely as edema worsening and could breakdown. 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 Historical scar with hyperpigmentation Sacrum . Area of non-blanching erythema also noted at previously injured site. Base of scrotum is erythematous with partial thickness shearing. Generalized Maculopapular red rash noted. Cleanse GT site with Soap and tepid water. Apply Zinc Oxide Paste to GT site Three times daily. Apply Moisture Barrier Paste to Buttocks . Cover with Optifoam drsg. Change every 3 days and prn. Apply Moisture Barrier Paste to Scrotum with each Incontinence care. Reposition at least every 2hours or as tolerated. Off-load heels with Pillow. DAILY ESTIMATED NEEDS: Needs based on DM, critical care 68kg abw 22-28 kcals/kg 5673-3524 total kcals 1.2-2 g protein/kg 81-136 g total protein 25-30 mL/kg 7464-5751 total fluid mLs NUTRITION DIAGNOSIS: 1) Swallowing difficulty r/t respiratory status as evidenced by pt is vent dep via trach, on GT feeds CURRENT TF: Glucerna 1.2 @ 65ml/hr x 20 hrs ENTERAL NUTRITION RECOMMENDATIONS: Glucerna 1.2 @ 65ml/hr x 20 hrs to provide 1300ml, 1560kcal, 78g prot, 1046ml free water - Maintain current TF as ordered - Once in stock, add prosource 1 pack QD for additional 11g prot to better meet est needs - HOB over 30 degrees/ water flush 170ml q 6hrs For continuous run x 24 hrs, rec Glucerna 1.2 @ 55ml/hr x 24 hrs to provide 1320ml, 1584kcal, 79g prot, 1063ml free water ADDITIONAL RECOMMENDATIONS: (1) Per SNF: HT=66" OQ=008vsf (June 2019) (2) Monitor lytes closely, replete as needed (low phos) (3) Skin integrity: add Shoaib BID via PEG TF @ goal will provide 100% RDI Jaden Doshi Jul 29, 2019 16:04
--- NOTE | 2019-07-29 19:30 | NUR ---
HAND-OFF: Report given Buffy Tompkins RN .
--- NOTE | 2019-07-29 19:44 | NUR ---
NURSE NOTES: Report received from MELISA Corrigan. Observed pt lying in the bed, obtunded, open-eyes, non-verbal. SR on classroom monitor. Trach to vent, AC 10, TV 500, FIO2 40%, PEEP 5. GT intact, running Glucerna 1.2 at 65cc/hr. PICC on L UA, intact, TKO. Bed in the lowest position. Side rails up x3. Will continue to monitor.
[2019-07-29 20:00] VITALS: BP 170/91
[2019-07-29] MEDS: Dyna-Hex 2% Top Sol 2oz TOPIC SCH (21:22)
--- NOTE | 2019-07-29 22:58 | NUR ---
NURSE NOTES: at the bedside, notified regarding pt not tolerating feeding and BP of 175/87 after prn, new order received and will be carried out.
[2019-07-30] VITALS: BP 151/75
[2019-07-30] MEDS: Vancomycin 750 MG in D5W 275 ML IVPB SCH ×2 (01:15→14:52)
--- NOTE | 2019-07-30 03:45 | Progress Note ---
DATE: 07/29/2019 SUBJECTIVE: The patient is afebrile, hemodynamically stable with blood pressure insufficiently controlled. PHYSICAL EXAMINATION: VITAL SIGNS: Blood pressure 175/88, pulse is 63, respirations 20, temperature 98.3. HEENT: Eyes were normal. ENT, mucous membranes were moist and intact. NECK: Supple with no JVD, without lymph nodes. Tracheostomy site is clean. LUNGS: Clear without rhonchi, rales, or wheezing. HEART: Normal sounds with regular beats. There is no tachycardia at rest. ABDOMEN: Soft, nontender with normal bowel sounds. Gastrostomy site is clean. EXTREMITIES: Warm without cyanosis, clubbing, edema. Contracted site of elbow is still warm, swollen, tender, but less red and less swollen than previously. LABORATORY DATA: Hemoglobin is 7.6, hematocrit 24.2 with MCV of 80, WBC of 10.4, and platelets 186. His BUN and creatinine are 15 and 0.8 respectively. His sodium is 147, potassium 3.6, chloride 111, CO2 is 28. His phosphorus is 2.2 and magnesium is 1.9. His calcium is 8.3. His CRP is 8.9. His . Smear from July 24 showed Enterococcus faecalis, which was VRE. Chest x-ray done yesterday revealed no significant change with left lung infiltrate and pleural effusion, which was unchanged. IMPRESSION AND PLAN: The patient has been seen today by the Infectious Disease to the right elbow cellulitis and left lung infiltrate. The patient will continue on vancomycin and Zosyn and the patient will receive permethrin 5% cream and for ingrown scabies. Repeat laboratory tests will be done in the a.m. Janette Weaver M.D. DR: BRYNN JOB#: [id number] CC:
[2019-07-30 04:00] VITALS: BP 155/77
--- NOTE | 2019-07-30 04:00 | NUR ---
NURSE NOTES: No acute distress noted at this time. Tolerating well with current vent setting. SR on jig builder. Reposition done. Oral care given. Will continue to monitor.
[2019-07-30] MEDS: Piperacillin/Tazobactam 3.375 GM in NS 110 ML IVPB SCH ×2 (05:14→14:43)
[2019-07-30] MEDS: NovoLOG Insulin Flexpen SUBQ SCH ×4 (05:15→23:24)
[2019-07-30] MEDS: HydrALAZINE 50mg tab GT SCH ×3 (05:15→21:21)
[2019-07-30 05:57] LABS: BASOPHILS % (AUTO) 1.3 % (0.0-2.0); EOSINOPHILS % (AUTO) 7.3 % (0.0-3.0); HEMATOCRIT 25.7 % (42.0-52.0); HEMOGLOBIN 8.4 G/DL (14.2-18.0); LYMPHOCYTES % (AUTO) 20.1 % (20.0-45.0); MEAN CORPUSCULAR VOLUME 80 FL (80-99); MONOCYTES % (AUTO) 6.8 % (1.0-10.0); NEUTROPHILS % (AUTO) 64.4 % (45.0-75.0); PLATELET COUNT 222 K/UL (150-450); RED BLOOD COUNT 3.22 M/UL (4.70-6.10); RED CELL DISTRIBUTION WIDTH 14.8 % (11.6-14.8); WHITE BLOOD COUNT 10.9 K/UL (4.8-10.8)
[2019-07-30 06:29] LABS: ALANINE AMINOTRANSFERASE 22 U/L (12-78); ALBUMIN 1.9 G/DL (3.4-5.0); ALBUMIN/GLOBULIN RATIO 0.5 (1.0-2.7); ALKALINE PHOSPHATASE 52 U/L (46-116); ANION GAP 8 mmol/L (5-15); ASPARTATE AMINO TRANSFERASE 16 U/L (15-37); BILIRUBIN,TOTAL 0.4 MG/DL (0.2-1.0); BLOOD UREA NITROGEN 12 mg/dL (7-18); CALCIUM 7.7 MG/DL (8.5-10.1); CARBON DIOXIDE 25 MMOL/L (21-32); CHLORIDE 107 MMOL/L (98-107); CHOLESTEROL 68 MG/DL (< 200); CREATININE 0.9 MG/DL (0.55-1.30); FERRITIN 64 NG/ML (8-388); GAMMA GLUTAMYL TRANSPEPTIDASE 31 U/L (5-85); HDL CHOLESTEROL 29 MG/DL (40-60); PHOSPHORUS 1.8 MG/DL (2.5-4.9); POTASSIUM 3.4 MMOL/L (3.5-5.1); SODIUM 140 MMOL/L (136-145); TRIGLYCERIDES 77 MG/DL (30-150)
--- NOTE | 2019-07-30 07:13 | NUR ---
HAND-OFF: Report given to MELISA Morgan.
--- NOTE | 2019-07-30 07:14 | NUR ---
NURSE NOTES: Report received from Eliseo Mccarthy RN. Patient laying in bed, resting with eyes open. Sinus bradycardia on the monitor at 59 BPM. Portex 7 trach to vent, settings of AC 10, TV 500, FIO2 40%, PEEP 5. G-tube patent and intact, running Glucerna 1.2 at 10 cc/hr d/t high residual overnight. Will attempt to increase feeding rate as patient tolerates. PICC to left upper arm intact and patent, NS TKO running. Bed in lowest position, bed alarm on, call light within reach. Side rails up x 3, will continue to monitor.
[2019-07-30 08:00] VITALS: BP 132/68
[2019-07-30] MEDS: Metoprolol Tartrate 50mg tab ORAL SCH ×2 (09:00→20:04)
--- NOTE | 2019-07-30 09:33 | NUR ---
RADIOLOGY DEPT.,ABDOMEN X-RAY PERFORMED.-P.DYE
[2019-07-30] MEDS: Pantoprazole Inj IVP SCH ×2 (09:49→20:04)
[2019-07-30] MEDS: Docusate 100mg/10ml Liq GT SCH (09:49)
[2019-07-30] MEDS: levETIRAcetam 500mg/5ml Liquid GT SCH (09:50)
[2019-07-30] MEDS: Ferrous Sulfate 300 MG/5 ML UDC GT SCH (09:50)
[2019-07-30] MEDS: Vitamin D 1000 IU Tab GT SCH (09:51)
[2019-07-30] MEDS: metFORMIN 500mg tab ORAL SCH ×2 (09:52→18:16)
[2019-07-30] MEDS: Ascorbic Acid 500mg tab GT SCH (09:53)
[2019-07-30] MEDS: Lisinopril 20mg tab GT SCH (09:53)
[2019-07-30] MEDS: Topiramate 100mg tab GT SCH ×2 (09:54→18:15)
[2019-07-30] MEDS: Glimepiride 4mg tab GT SCH ×2 (09:55→18:15)
[2019-07-30] MEDS: Heparin 5000 units/ml inj SUBQ SCH ×2 (09:56→20:06)
--- NOTE | 2019-07-30 10:09 | Diagnostic Imaging Report ---
Indication: Abdominal pain Technique: Supine view of the abdomen Comparison: none Findings: Small bowel and colon is gas-filled, upper limits of normal in caliber. No masses or unusual calcifications Impression: Nonspecific prominent bowel gas.
--- NOTE | 2019-07-30 10:37 | NUR ---
NURSE NOTES: Called and left message with answering service for Dr. Zambrano at updating her that the patient's most recent Covid-19 test result is negative. Requested call back for DC orders for Covid isolation.
--- NOTE | 2019-07-30 11:32 | NUR ---
CASE MANAGEMENT: REVIEW 07/30/2019 SI:SEPSIS. ACUTE AND Chronic respiratory failure VS: T 98.2 HR 64 RR 19 B/P 132/68 SATS 99% ON MECH VENT FIO2 40 LABS: WBC 10.9 K 3.4 GLU 305 CA 7.7 PHOS 1.8 BNP 2890 DDIMER 2.23 IS:HYDRALAZINE GT Q8H ZOSYN IV Q8H K DUR GT BID TOPAMAX GT BID KEPPRA GT QD LISINOPRIL GT QD VANCO IV Q12H LOPRESSOR PO Q12H INSULIN ASPART SUBQ Q6H SDU PLAN OF CARE: CT UPPER EXT W/ CON>>> ABSCESS >> PENDING
[2019-07-30 12:00] VITALS: BP 124/64
--- NOTE | 2019-07-30 14:05 | Pulmonolgy Critical Care Note ---
Critical Care - Asmt/Plan Problems: (1) Chronic respiratory failure (2) Severe sepsis (3) Nosocomial pneumonia (4) Cellulitis of right upper extremity (5) Severe anemia (6) Tracheostomy dependence (7) Contracture of joint of multiple sites (8) Diabetes mellitus (9) Vegetative state (10) Cerebrovascular accident (CVA) Respiratory: monitor respiratory rate, adjust FIO2, CXR Cardiac: continue pressors, continue to monitor HR/BP Renal: F/U I&O, keep IV fluid, check electrolytes Gastrointestinal: continue feedings/current rate Endocrine: monitor blood sugar, continue sliding scale insulin Hematologic: monitor H/H, transfuse if hgb<8.5 Neurologic: PRN Ativan, PRN Morphine, keep patient comfortable Affect: PRN ativan Prophylaxis: Protonix Time Spent (Minutes): 40 Notes Reviewed: distribution systems serviceperson, cardio, renal Discussed with: nurses, consultants, child support case officerassociate manager affiliate marketing - Objective Last 24 Hour Vital Signs Date Time Temp Pulse Resp B/P (MAP) Pulse Ox O2 Delivery O2 Flow Rate FiO2 07/30/19 12:00 98.0 55 19 124/64 (84) 98 07/30/19 12:00 40 07/30/19 12:00 Mechanical Ventilator 07/30/19 12:00 56 07/30/19 11:00 55 17 40 07/30/19 09:53 132/68 07/30/19 09:00 59 07/30/19 08:01 64 19 40 07/30/19 08:00 Mechanical Ventilator 07/30/19 08:00 40 07/30/19 08:00 58 07/30/19 08:00 98.2 64 19 132/68 (89) 99 07/30/19 05:15 135/65 07/30/19 04:00 Mechanical Ventilator 07/30/19 04:00 61 07/30/19 04:00 98.4 61 20 155/77 (103) 99 07/30/19 04:00 40 07/30/19 02:57 60 17 40 07/30/19 00:00 98.1 61 20 151/75 (100) 99 07/30/19 00:00 Mechanical Ventilator 07/30/19 00:00 58 07/30/19 00:00 40 07/29/19 23:01 63 23 40 07/29/19 22:24 175/88 07/29/19 21:23 170/91 07/29/19 21:22 65 170/91 07/29/19 20:00 Mechanical Ventilator 07/29/19 20:00 60 07/29/19 20:00 40 07/29/19 20:00 98.3 65 20 170/91 (117) 99 07/29/19 19:55 6 23 40 07/29/19 16:00 40 07/29/19 16:00 54 07/29/19 16:00 Mechanical Ventilator 07/29/19 16:00 98.2 58 20 124/64 (84) 100 07/29/19 14:46 56 16 40 07/29/19 14:39 125/61 Status: awake, somnolent HEENT: atraumatic, normocephalic Neck: trach Lungs: rales, rhonchi Heart: HR/BP stable Abdomen: soft, non-tender Extremities: no C/C/E Micro: Microbiology Date/Time Source Procedure Growth Status 07/28/19 19:24 Nasopharynx Coronavirus COVID-19 PCR (BRIAN) - Final Complete Accucheck: 150 Critical Care - Subjective ROS Limited/Unobtainable: Yes Condition: critical EKG Rhythm: Sinus Rhythm FI02: 40 Vent Support Breath Rate: 10 Vent Support Mode: AC Vent Tidal Volume: 500 Sputum Amount: Small PEEP: 5.0 PIP: 24 Tube Feeding Amount: 10 I&O: Intake and Output 07/29/19 07/30/19 18:59 06:59 Intake Total 1130 ml 355 ml Output Total 1 ml 1500 ml Balance 1129 ml -1145 ml Intake Free Water 200 ml 150 ml Tube Feeding 750 ml 205 ml Other 180 ml Output Urine Total 1500 ml Stool Total 1 ml # Bowel Movements 1 CXR: Small bowel and colon is gas-filled, upper limits of normal in caliber. No masses or unusual calcifications Labs: Laboratory Tests Test 07/30/19 04:00 White Blood Count 10.9 K/UL (4.8-10.8) H Red Blood Count 3.22 M/UL (4.70-6.10) L Hemoglobin 8.4 G/DL (14.2-18.0) L Hematocrit 25.7 % (42.0-52.0) L Mean Corpuscular Volume 80 FL (80-99) Mean Corpuscular Hemoglobin 26.1 PG (27.0-31.0) L Mean Corpuscular Hemoglobin Concent 32.8 G/DL (32.0-36.0) Red Cell Distribution Width 14.8 % (11.6-14.8) Platelet Count 222 K/UL (150-450) Mean Platelet Volume 6.9 FL (6.5-10.1) Neutrophils (%) (Auto) 64.4 % (45.0-75.0) Lymphocytes (%) (Auto) 20.1 % (20.0-45.0) Monocytes (%) (Auto) 6.8 % (1.0-10.0) Eosinophils (%) (Auto) 7.3 % (0.0-3.0) H Basophils (%) (Auto) 1.3 % (0.0-2.0) D-Dimer 2.23 mg/L FEU (0.00-0.49) H Sodium Level 140 MMOL/L (136-145) Potassium Level 3.4 MMOL/L (3.5-5.1) L Chloride Level 107 MMOL/L (98-107) Carbon Dioxide Level 25 MMOL/L (21-32) Anion Gap 8 mmol/L (5-15) Blood Urea Nitrogen 12 mg/dL (7-18) Creatinine 0.9 MG/DL (0.55-1.30) Estimat Glomerular Filtration Rate > 60 mL/min (>60) Glucose Level 305 MG/DL (74-106) H Uric Acid 4.0 MG/DL (2.6-7.2) Calcium Level 7.7 MG/DL (8.5-10.1) L Phosphorus Level 1.8 MG/DL (2.5-4.9) L Magnesium Level 2.0 MG/DL (1.8-2.4) Ferritin 64 NG/ML (8-388) Total Bilirubin 0.4 MG/DL (0.2-1.0) Gamma Glutamyl Transpeptidase 31 U/L (5-85) Aspartate Amino Transf (AST/SGOT) 16 U/L (15-37) Alanine Aminotransferase (ALT/SGPT) 22 U/L (12-78) Alkaline Phosphatase 52 U/L (46-116) Lactate Dehydrogenase 220 U/L (81-234) Troponin I 0.020 ng/mL (0.000-0.056) C-Reactive Protein, Quantitative 4.7 mg/dL (0.00-0.90) H Pro-B-Type Natriuretic Peptide 2890 pg/mL (0-125) H Total Protein 6.0 G/DL (6.4-8.2) L Albumin 1.9 G/DL (3.4-5.0) L Globulin 4.1 g/dL Albumin/Globulin Ratio 0.5 (1.0-2.7) L Triglycerides Level 77 MG/DL (30-150) Cholesterol Level 68 MG/DL (< 200) LDL Cholesterol 29 mg/dL (<100) HDL Cholesterol 29 MG/DL (40-60) L Cholesterol/HDL Ratio 2.3 (3.3-4.4) L Yomi Odom MD Jul 30, 2019 14:04
--- NOTE | 2019-07-30 14:35 | NUR ---
DISCHARGE PLANNING: NOTE CLINICALS FAXED TO MYRANDA @ [facility]. COVID RESULTS ON 07/27 NEGATIVE. MYRANDA CONFIRMED THAT HE RECEIVED CLINICALS PATIENT HAS BEEN ACCEPTED TO [facility] ROOM [address] WEEKEND CM ON [address] FOR POSSIBLE DC
--- NOTE | 2019-07-30 15:13 | Surgery Progress Note ---
Surgery Progress Note Subjective Additional Comments labs stable exam stable cellulitis unchanged Objective Last 24 Hour Vital Signs Date Time Temp Pulse Resp B/P (MAP) Pulse Ox O2 Delivery O2 Flow Rate FiO2 07/30/19 14:42 128/72 07/30/19 12:00 98.0 55 19 124/64 (84) 98 07/30/19 12:00 40 07/30/19 12:00 Mechanical Ventilator 07/30/19 12:00 56 07/30/19 11:00 55 17 40 07/30/19 09:53 132/68 07/30/19 09:00 59 07/30/19 08:01 64 19 40 07/30/19 08:00 Mechanical Ventilator 07/30/19 08:00 40 07/30/19 08:00 58 07/30/19 08:00 98.2 64 19 132/68 (89) 99 07/30/19 05:15 135/65 07/30/19 04:00 Mechanical Ventilator 07/30/19 04:00 61 07/30/19 04:00 98.4 61 20 155/77 (103) 99 07/30/19 04:00 40 07/30/19 02:57 60 17 40 07/30/19 00:00 98.1 61 20 151/75 (100) 99 07/30/19 00:00 Mechanical Ventilator 07/30/19 00:00 58 07/30/19 00:00 40 07/29/19 23:01 63 23 40 07/29/19 22:24 175/88 07/29/19 21:23 170/91 07/29/19 21:22 65 170/91 07/29/19 20:00 Mechanical Ventilator 07/29/19 20:00 60 07/29/19 20:00 40 07/29/19 20:00 98.3 65 20 170/91 (117) 99 07/29/19 19:55 6 23 40 07/29/19 16:00 40 07/29/19 16:00 54 07/29/19 16:00 Mechanical Ventilator 07/29/19 16:00 98.2 58 20 124/64 (84) 100 I&O Intake and Output 07/29/19 07/30/19 18:59 06:59 Intake Total 1130 ml 355 ml Output Total 1 ml 1500 ml Balance 1129 ml -1145 ml Intake Free Water 200 ml 150 ml Tube Feeding 750 ml 205 ml Other 180 ml Output Urine Total 1500 ml Stool Total 1 ml # Bowel Movements 1 Dressing: other Wound: other Drains: other Cardiovascular: RSR Respiratory: decreased breath sounds Abdomen: soft, present bowel sounds, non-distended Extremities: edema, no cyanosis Laboratory Tests Test 07/30/19 04:00 White Blood Count 10.9 K/UL (4.8-10.8) H Red Blood Count 3.22 M/UL (4.70-6.10) L Hemoglobin 8.4 G/DL (14.2-18.0) L Hematocrit 25.7 % (42.0-52.0) L Mean Corpuscular Volume 80 FL (80-99) Mean Corpuscular Hemoglobin 26.1 PG (27.0-31.0) L Mean Corpuscular Hemoglobin Concent 32.8 G/DL (32.0-36.0) Red Cell Distribution Width 14.8 % (11.6-14.8) Platelet Count 222 K/UL (150-450) Mean Platelet Volume 6.9 FL (6.5-10.1) Neutrophils (%) (Auto) 64.4 % (45.0-75.0) Lymphocytes (%) (Auto) 20.1 % (20.0-45.0) Monocytes (%) (Auto) 6.8 % (1.0-10.0) Eosinophils (%) (Auto) 7.3 % (0.0-3.0) H Basophils (%) (Auto) 1.3 % (0.0-2.0) D-Dimer 2.23 mg/L FEU (0.00-0.49) H Sodium Level 140 MMOL/L (136-145) Potassium Level 3.4 MMOL/L (3.5-5.1) L Chloride Level 107 MMOL/L (98-107) Carbon Dioxide Level 25 MMOL/L (21-32) Anion Gap 8 mmol/L (5-15) Blood Urea Nitrogen 12 mg/dL (7-18) Creatinine 0.9 MG/DL (0.55-1.30) Estimat Glomerular Filtration Rate > 60 mL/min (>60) Glucose Level 305 MG/DL (74-106) H Uric Acid 4.0 MG/DL (2.6-7.2) Calcium Level 7.7 MG/DL (8.5-10.1) L Phosphorus Level 1.8 MG/DL (2.5-4.9) L Magnesium Level 2.0 MG/DL (1.8-2.4) Ferritin 64 NG/ML (8-388) Total Bilirubin 0.4 MG/DL (0.2-1.0) Gamma Glutamyl Transpeptidase 31 U/L (5-85) Aspartate Amino Transf (AST/SGOT) 16 U/L (15-37) Alanine Aminotransferase (ALT/SGPT) 22 U/L (12-78) Alkaline Phosphatase 52 U/L (46-116) Lactate Dehydrogenase 220 U/L (81-234) Troponin I 0.020 ng/mL (0.000-0.056) C-Reactive Protein, Quantitative 4.7 mg/dL (0.00-0.90) H Pro-B-Type Natriuretic Peptide 2890 pg/mL (0-125) H Total Protein 6.0 G/DL (6.4-8.2) L Albumin 1.9 G/DL (3.4-5.0) L Globulin 4.1 g/dL Albumin/Globulin Ratio 0.5 (1.0-2.7) L Triglycerides Level 77 MG/DL (30-150) Cholesterol Level 68 MG/DL (< 200) LDL Cholesterol 29 mg/dL (<100) HDL Cholesterol 29 MG/DL (40-60) L Cholesterol/HDL Ratio 2.3 (3.3-4.4) L Plan Problems: (1) Cellulitis of right upper extremity Assessment & Plan: This is a 69-year-old male with fevers, leukocytosis, abnormal labs, right elbow cellulitis identified upper extremity. There is significant erythema edema without drainage or fluctuance. The edema is pitting and the right upper extremity does have a contracture at the level of the elbow. With gentle manipulation can slowly begin to straighten the elbow but does have overall limited movement. Plain films identified no fractures noted. No history of fall. No trauma identifiable on examination. Though this could potentially be a infectious process looks inflammatory in nature potentially dependent edema versus venous congestion. Ultrasound upper extremity will be ordered. Pillow to be placed underneath the axilla and to help elevate the elbow. Pillow placed in between the elbow to allow for some decompression. Will monitor skin closely as edema worsening and could breakdown. 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 Historical scar with hyperpigmentation Sacrum . Area of non-blanching erythema also noted at previously injured site. Base of scrotum is erythematous with partial thickness shearing. Generalized Maculopapular red rash noted. Cleanse GT site with Soap and tepid water. Apply Zinc Oxide Paste to GT site Three times daily. Apply Moisture Barrier Paste to Buttocks . Cover with Optifoam drsg. Change every 3 days and prn. Apply Moisture Barrier Paste to Scrotum with each Incontinence care. Reposition at least every 2hours or as tolerated. Off-load heels with Pillow. DAILY ESTIMATED NEEDS: Needs based on DM, critical care 68kg abw 22-28 kcals/kg 9527-8856 total kcals 1.2-2 g protein/kg 81-136 g total protein 25-30 mL/kg 3786-0058 total fluid mLs NUTRITION DIAGNOSIS: 1) Swallowing difficulty r/t respiratory status as evidenced by pt is vent dep via trach, on GT feeds CURRENT TF: Glucerna 1.2 @ 65ml/hr x 20 hrs ENTERAL NUTRITION RECOMMENDATIONS: Glucerna 1.2 @ 65ml/hr x 20 hrs to provide 1300ml, 1560kcal, 78g prot, 1046ml free water - Maintain current TF as ordered - Once in stock, add prosource 1 pack QD for additional 11g prot to better meet est needs - HOB over 30 degrees/ water flush 170ml q 6hrs For continuous run x 24 hrs, rec Glucerna 1.2 @ 55ml/hr x 24 hrs to provide 1320ml, 1584kcal, 79g prot, 1063ml free water ADDITIONAL RECOMMENDATIONS: (1) Per SNF: HT=66" CC=[id number] (June 2019) (2) Monitor lytes closely, replete as needed (low phos) (3) Skin integrity: add Shoaib BID via PEG TF @ goal will provide 100% RDI Benyamini,Jaden Jul 30, 2019 15:13
--- NOTE | 2019-07-30 15:48 | Infectious Diseases Prog Note ---
Assessment/Plan Assessment/Plan Assessment: Sepsis Probable PNA- COVID19 neg x2 (resident from SNF with large outbreak) -07/26 CXR: Left lung infiltrates and effusion unchanged. -07/25 sp cx MDR ABC (S colistin/polymixin B; suspect colonizer), P. mirabilis, probable AMp-C (S Cefepime, Zosyn, Meropenem) -CXR: Retrocardiac atelectasis with possible tiny left pleural effusion, correlate to exclude pneumonia.Cardiomegaly. Low lung volumes with bronchovascular crowding. -07/24 SARS-Cov2 PCR neg R elbow cellulitis- r/o abscess; improving -CT R elbow: p -xray elbow: : Limited and essentially nondiagnostic. No definite acute abnormality -V. 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 Will continue to follow along with you. Discussed with RN Subjective Allergies: Coded Allergies: No Known Allergies (Unverified , 05/27/18) Subjective afebrile >72hrs FIo2 40% mild leukocytosis cellulitis improving Objective Vital Signs Last 24 Hour Vital Signs Date Time Temp Pulse Resp B/P (MAP) Pulse Ox O2 Delivery O2 Flow Rate FiO2 07/30/19 15:20 57 16 40 07/30/19 14:42 128/72 07/30/19 12:00 98.0 55 19 124/64 (84) 98 07/30/19 12:00 40 07/30/19 12:00 Mechanical Ventilator 07/30/19 12:00 56 07/30/19 11:00 55 17 40 07/30/19 09:53 132/68 07/30/19 09:00 59 07/30/19 08:01 64 19 40 07/30/19 08:00 Mechanical Ventilator 07/30/19 08:00 40 07/30/19 08:00 58 07/30/19 08:00 98.2 64 19 132/68 (89) 99 07/30/19 05:15 135/65 07/30/19 04:00 Mechanical Ventilator 07/30/19 04:00 61 07/30/19 04:00 98.4 61 20 155/77 (103) 99 07/30/19 04:00 40 07/30/19 02:57 60 17 40 07/30/19 00:00 98.1 61 20 151/75 (100) 99 07/30/19 00:00 Mechanical Ventilator 07/30/19 00:00 58 07/30/19 00:00 40 07/29/19 23:01 63 23 40 07/29/19 22:24 175/88 07/29/19 21:23 170/91 07/29/19 21:22 65 170/91 07/29/19 20:00 Mechanical Ventilator 07/29/19 20:00 60 07/29/19 20:00 40 07/29/19 20:00 98.3 65 20 170/91 (117) 99 07/29/19 19:55 6 23 40 07/29/19 16:00 40 07/29/19 16:00 54 07/29/19 16:00 Mechanical Ventilator 07/29/19 16:00 98.2 58 20 124/64 (84) 100 Height (Feet): 5 Height (Inches): 8.00 Weight (Pounds): 145 Objective Gen: chornically ill, no distress HEENT: trach in place, EOMI Lungs: no tachypnea, no use of accessory muscles Abd: no distended Ext: R elbow redness and swelling improving Microbiology Date/Time Source Procedure Growth Status 07/28/19 19:24 Nasopharynx Coronavirus COVID-19 PCR (BRIAN) - Final Complete Laboratory Tests Test 07/30/19 04:00 White Blood Count 10.9 K/UL (4.8-10.8) H Red Blood Count 3.22 M/UL (4.70-6.10) L Hemoglobin 8.4 G/DL (14.2-18.0) L Hematocrit 25.7 % (42.0-52.0) L Mean Corpuscular Volume 80 FL (80-99) Mean Corpuscular Hemoglobin 26.1 PG (27.0-31.0) L Mean Corpuscular Hemoglobin Concent 32.8 G/DL (32.0-36.0) Red Cell Distribution Width 14.8 % (11.6-14.8) Platelet Count 222 K/UL (150-450) Mean Platelet Volume 6.9 FL (6.5-10.1) Neutrophils (%) (Auto) 64.4 % (45.0-75.0) Lymphocytes (%) (Auto) 20.1 % (20.0-45.0) Monocytes (%) (Auto) 6.8 % (1.0-10.0) Eosinophils (%) (Auto) 7.3 % (0.0-3.0) H Basophils (%) (Auto) 1.3 % (0.0-2.0) D-Dimer 2.23 mg/L FEU (0.00-0.49) H Sodium Level 140 MMOL/L (136-145) Potassium Level 3.4 MMOL/L (3.5-5.1) L Chloride Level 107 MMOL/L (98-107) Carbon Dioxide Level 25 MMOL/L (21-32) Anion Gap 8 mmol/L (5-15) Blood Urea Nitrogen 12 mg/dL (7-18) Creatinine 0.9 MG/DL (0.55-1.30) Estimat Glomerular Filtration Rate > 60 mL/min (>60) Glucose Level 305 MG/DL (74-106) H Uric Acid 4.0 MG/DL (2.6-7.2) Calcium Level 7.7 MG/DL (8.5-10.1) L Phosphorus Level 1.8 MG/DL (2.5-4.9) L Magnesium Level 2.0 MG/DL (1.8-2.4) Ferritin 64 NG/ML (8-388) Total Bilirubin 0.4 MG/DL (0.2-1.0) Gamma Glutamyl Transpeptidase 31 U/L (5-85) Aspartate Amino Transf (AST/SGOT) 16 U/L (15-37) Alanine Aminotransferase (ALT/SGPT) 22 U/L (12-78) Alkaline Phosphatase 52 U/L (46-116) Lactate Dehydrogenase 220 U/L (81-234) Troponin I 0.020 ng/mL (0.000-0.056) C-Reactive Protein, Quantitative 4.7 mg/dL (0.00-0.90) H Pro-B-Type Natriuretic Peptide 2890 pg/mL (0-125) H Total Protein 6.0 G/DL (6.4-8.2) L Albumin 1.9 G/DL (3.4-5.0) L Globulin 4.1 g/dL Albumin/Globulin Ratio 0.5 (1.0-2.7) L Triglycerides Level 77 MG/DL (30-150) Cholesterol Level 68 MG/DL (< 200) LDL Cholesterol 29 mg/dL (<100) HDL Cholesterol 29 MG/DL (40-60) L Cholesterol/HDL Ratio 2.3 (3.3-4.4) L Current Medications Medications (Trade) Dose Ordered Sig/Bhupinder Route PRN Reason Start Time Stop Time Status Last Admin Dose Admin Acetaminophen (Tylenol) 650 mg Q4H PRN GT fever and mild pain 07/26/19 16:30 08/25/19 16:29 07/28/19 15:24 Albuterol Sulfate (Proventil MDI) 2 puff Q3H PRN INH Shortness of Breath 07/26/19 16:30 10/24/19 16:29 Ascorbic Acid (Vitamin C) 500 mg DAILY GT 07/27/19 09:00 08/26/19 08:59 07/30/19 09:53 Atorvastatin Calcium (Lipitor) 10 mg BEDTIME GT 07/26/19 21:00 10/24/19 20:59 07/29/19 21:22 Chlorhexidine Gluconate (Jasmin-Hex 2%) 1 applic DAILY@1999 TOPIC 07/26/19 20:00 10/24/19 19:59 07/29/19 21:22 Clonidine HCl (Catapres Tab) 0.1 mg Q8H PRN GT For High Blood Pressure 07/26/19 16:44 8/30/20 16:43 07/29/19 22:24 Dextrose (Dextrose 50%) 25 ml Q30M PRN IV Hypoglycemia 07/26/19 16:30 10/24/19 16:29 Dextrose (Dextrose 50%) 50 ml Q30M PRN IV Hypoglycemia 07/26/19 16:30 10/24/19 16:29 Docusate Sodium (Colace) 100 mg DAILY GT 07/27/19 09:00 08/26/19 08:59 07/30/19 09:49 Ferrous Sulfate (Feosol) 325 mg DAILY GT 07/27/19 09:00 10/25/19 08:59 07/30/19 09:50 Glimepiride (AmaryL) 4 mg BID GT 07/26/19 18:00 08/25/19 17:59 07/30/19 09:55 Heparin Sodium (Porcine) (Heparin 5000 units/ml) 5,000 units EVERY 12 HOURS SUBQ 07/26/19 09:00 09/09/19 08:59 07/30/19 09:56 Hydralazine HCl (Apresoline) 100 mg EVERY 8 HOURS GT 07/30/19 06:00 10/24/19 21:59 07/30/19 14:42 Insulin Aspart (NovoLOG) Q6HR SUBQ 07/26/19 18:00 10/24/19 16:29 07/30/19 11:49 Levetiracetam (Keppra) 1,500 mg DAILY GT 07/27/19 09:00 08/26/19 08:59 07/30/19 09:50 Lisinopril (PriniviL) 40 mg DAILY GT 07/27/19 09:00 08/26/19 08:59 07/30/19 09:53 Metformin HCl (Glucophage) 1,000 mg BID ORAL 07/26/19 18:00 08/25/19 17:59 07/30/19 09:52 Metoprolol Tartrate (Lopressor) 50 mg Q12HR ORAL 07/26/19 09:00 10/24/19 08:59 07/29/19 21:22 Ondansetron HCl (Zofran) 4 mg Q4H PRN GT Nausea & Vomiting 07/26/19 16:30 08/25/19 16:29 Pantoprazole (Protonix) 40 mg EVERY 12 HOURS IVP 07/26/19 09:00 08/25/19 08:59 07/30/19 09:49 Piperacillin Sod/ Tazobactam Sod 3.375 gm/Sodium Chloride 110 ml @ 27.5 mls/hr EVERY 8 HOURS IVPB 07/26/19 23:00 07/31/19 22:59 07/30/19 14:43 Potassium Chloride (K-Dur) 40 meq TWICE A DAY GT 07/27/19 18:00 10/25/19 17:59 07/30/19 09:50 Topiramate (Topamax) 200 mg BID GT 07/26/19 18:00 08/25/19 17:59 07/30/19 09:54 Vancomycin HCl 750 mg/Dextrose 275 ml @ 184 mls/hr Q12H IVPB 07/26/19 02:00 07/31/19 01:59 07/30/19 14:52 Vitamin D (Vitamin D) 5,000 intlu DAILY GT 07/26/19 09:00 08/25/19 08:59 07/30/19 09:51 Zinc Oxide (Zinc Oxide) 1 applic THREE TIMES A DAY PRN TOPIC REDNESS 07/26/19 12:45 10/24/19 12:44 Consuelo Zambrano M.D. Jul 30, 2019 15:48
[2019-07-30 16:00] VITALS: BP_SYST 138; BP_SYST 157; BP_DIAS 71; BP_DIAS 73
--- NOTE | 2019-07-30 19:04 | NUR ---
HAND-OFF: Report given to Eliseo Mccarthy RN. Patient stable, no s/s of acute distress. Endorsed plan of care.
--- NOTE | 2019-07-30 19:19 | NUR ---
NURSE NOTES: Report received from MELISA Morgan. Observed pt lying in the bed, obtunded, no signs of pain noted. 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 Trach to vent, Portex 7, AC 10, TV 500, FIO2 40%, PEEP 5. GT intact, running Glucerna 1.2 at 30cc/hr. PICC L UA, intact, TKO. R arm swollen noted. Bed in the lowest position. Side rails up x3. Will continue to monitor.
--- NOTE | 2019-07-30 19:47 | NUR ---
RESPIRATORY NOTE: Received pt on AC 10, 500VT, 40%, PEEP +5. Pt is trach-dependent w/ a cuffed, Portex 7 tube. Pt obtunded/flat effect. B/S villa. rhonchi, sxn small to moderate amounts of thick, clear/white to pale-yellow secretions. Vent plugged into red outlet, ambubag at bedside. Pt in no apparent distress at this time. Will continue plan of care.
[2019-07-30 20:00] VITALS: BP 148/75
[2019-07-30] MEDS: Dyna-Hex 2% Top Sol 2oz TOPIC SCH (20:03)
[2019-07-30] MEDS: Cefepime HCl 1 GM in D5W 55 ML IVPB SCH (21:21)
--- NOTE | 2019-07-30 22:00 | Progress Note ---
DATE: 07/30/2019 ADDENDUM The patient's right arm cellulitis is continued to improve. The redness has become failure. The diameter of the swelling is declining and the tenderness of palpation is declining as well. The patient currently is on piperacillin 3.375 g IV piggyback q.8h. and vancomycin 750 mg IV piggyback q.12h. We will continue with the same IV antibiotics. The patient probably can become out of isolation as he has two negative arcos tests successively after being cleared by infectious disease specialist. Janette Weaver M.D. DR: Mone JOB#: [id number] CC:
[2019-07-31] VITALS: BP 136/70
[2019-07-31 04:00] VITALS: BP 156/82
[2019-07-31] MEDS: NovoLOG Insulin Flexpen SUBQ SCH ×4 (05:11→23:20)
[2019-07-31] MEDS: Cefepime HCl 1 GM in D5W 55 ML IVPB SCH ×3 (05:11→21:21)
[2019-07-31] MEDS: HydrALAZINE 50mg tab GT SCH ×3 (05:11→21:21)
[2019-07-31 07:05] LABS: ANION GAP 10 mmol/L (5-15); CALCIUM 7.7 MG/DL (8.5-10.1); CARBON DIOXIDE 23 MMOL/L (21-32); CHLORIDE 115 MMOL/L (98-107); CREATININE 0.7 MG/DL (0.55-1.30); POTASSIUM 3.3 MMOL/L (3.5-5.1); SODIUM 148 MMOL/L (136-145)
--- NOTE | 2019-07-31 07:06 | NUR ---
HAND-OFF: Report given to MELISA Garcia. No acute distress noted at this time.
[2019-07-31 07:08] LABS: HEMATOCRIT 23.4 % (42.0-52.0); HEMOGLOBIN 7.7 G/DL (14.2-18.0); MEAN CORPUSCULAR VOLUME 80 FL (80-99); PLATELET COUNT 228 K/UL (150-450); RED BLOOD COUNT 2.92 M/UL (4.70-6.10); RED CELL DISTRIBUTION WIDTH 15.2 % (11.6-14.8); WHITE BLOOD COUNT 8.4 K/UL (4.8-10.8)
[2019-07-31 07:18] LABS: BLOOD UREA NITROGEN 11 mg/dL (7-18)
--- NOTE | 2019-07-31 07:30 | NUR ---
NURSE NOTES: Report received from Eliseo Mccarthy RN. Patient laying in bed, resting with eyes open. Vent setting per prescription. G-tube running Glucerna 1.2 at 40 cc/hr d/t high residual. Goal is 65 cc/hr. Will attempt to increase feeding rate as patient tolerates. PICC to left upper arm intact and patent noted, NS TKO running. Bed in lowest position, bed alarm on, call light within reach. Side rails up x 3, will continue to monitor.
[2019-07-31 08:00] VITALS: BP 157/78
[2019-07-31] MEDS: Ferrous Sulfate 300 MG/5 ML UDC GT SCH (08:38)
[2019-07-31] MEDS: Ascorbic Acid 500mg tab GT SCH (08:39)
[2019-07-31] MEDS: Glimepiride 4mg tab GT SCH ×2 (08:39→18:00)
[2019-07-31] MEDS: Vitamin D 1000 IU Tab GT SCH (08:39)
[2019-07-31] MEDS: metFORMIN 500mg tab ORAL SCH ×2 (08:39→18:00)
[2019-07-31] MEDS: Topiramate 100mg tab GT SCH ×2 (08:43→18:00)
[2019-07-31] MEDS: Metoprolol Tartrate 50mg tab ORAL SCH ×2 (08:44→21:00)
[2019-07-31] MEDS: Lisinopril 20mg tab GT SCH (08:44)
[2019-07-31] MEDS: levETIRAcetam 500mg/5ml Liquid GT SCH (08:45)
[2019-07-31] MEDS: Docusate 100mg/10ml Liq GT SCH (08:45)
[2019-07-31] MEDS: Pantoprazole Inj IVP SCH ×2 (08:45→21:21)
[2019-07-31] MEDS: Heparin 5000 units/ml inj SUBQ SCH ×2 (08:46→21:00)
[2019-07-31] MEDS ORDERED: NS 275ml ONE ×2 (10:05→10:53)
[2019-07-31] MEDS ORDERED: Tubing IV Secondary IV ONE ×2 (10:05→10:53)
[2019-07-31] MEDS ORDERED: D5 1/2NS 1000ml IV ONE (10:53)
[2019-07-31] MEDS ORDERED: D5W 275ml ONE (10:53)
[2019-07-31] MEDS: Vancomycin 750 MG in D5W 275 ML IVPB SCH ×2 (11:50→23:20)
[2019-07-31 12:00] VITALS: BP 148/73
--- NOTE | 2019-07-31 13:04 | NUR ---
NURSE NOTES: Called and left a message to Dr. Weaver regarding hgb 7.7 today. Awaiting for response.
--- NOTE | 2019-07-31 13:08 | NUR ---
NURSE NOTES: And also notified him regarding rhythm strip HR 44 with second degree AVB Diego Gifford. Awaiting for response.
--- NOTE | 2019-07-31 13:19 | NUR ---
NURSE NOTES: Called patient's brother Boby Monique at 1100 to get the consent for CT scan right arm with contrast.
--- NOTE | 2019-07-31 13:29 | NUR ---
NURSE NOTES: Received telephone order from Dr. Weaver for 2 PRBC due to low HgB 7.7, and the physician consult for Roseanna Camejo.
--- NOTE | 2019-07-31 13:49 | Surgery Progress Note ---
Surgery Progress Note Subjective Additional Comments right elbow cellulitis and edema improving exam improved Objective Last 24 Hour Vital Signs Date Time Temp Pulse Resp B/P (MAP) Pulse Ox O2 Delivery O2 Flow Rate FiO2 07/31/19 12:36 61 07/31/19 12:00 40 07/31/19 12:00 99.9 62 20 148/73 (98) 100 07/31/19 12:00 Mechanical Ventilator 07/31/19 10:03 44 07/31/19 08:44 157/78 07/31/19 08:44 84 157/78 07/31/19 08:39 84 07/31/19 08:00 98.6 80 22 157/78 (104) 98 07/31/19 08:00 40 07/31/19 08:00 Mechanical Ventilator 07/31/19 07:23 79 23 40 07/31/19 05:11 156/82 07/31/19 04:00 Mechanical Ventilator 07/31/19 04:00 62 07/31/19 04:00 40 07/31/19 04:00 98.2 72 24 156/82 (106) 100 07/31/19 03:26 79 29 40 07/31/19 00:00 Mechanical Ventilator 07/31/19 00:00 98.3 60 15 136/70 (92) 98 07/31/19 00:00 62 07/30/19 23:03 64 18 40 07/30/19 21:21 148/75 07/30/19 20:04 57 151/71 07/30/19 20:00 Mechanical Ventilator 07/30/19 20:00 57 07/30/19 20:00 98.1 59 20 148/75 (99) 99 07/30/19 20:00 40 07/30/19 19:44 60 18 40 07/30/19 16:00 57 07/30/19 16:00 97.9 71 23 138/71 (93) 99 07/30/19 16:00 97.9 71 23 157/73 (101) 99 07/30/19 16:00 Mechanical Ventilator 07/30/19 16:00 40 07/30/19 15:20 57 16 40 07/30/19 14:42 128/72 I&O Intake and Output 07/30/19 07/31/19 19:00 07:00 Intake Total 240 ml 595 ml Output Total 575 ml 600 ml Balance -335 ml -5 ml Intake Free Water 140 ml IV Total 55 ml Tube Feeding 240 ml 400 ml Output Urine Total 575 ml 600 ml Dressing: other Wound: other Drains: other Cardiovascular: RSR Respiratory: decreased breath sounds Abdomen: soft, present bowel sounds Extremities: edema, no cyanosis, pulses, other Laboratory Tests Test 07/31/19 04:00 White Blood Count 8.4 K/UL (4.8-10.8) Red Blood Count 2.92 M/UL (4.70-6.10) L Hemoglobin 7.7 G/DL (14.2-18.0) L Hematocrit 23.4 % (42.0-52.0) L Mean Corpuscular Volume 80 FL (80-99) Mean Corpuscular Hemoglobin 26.3 PG (27.0-31.0) L Mean Corpuscular Hemoglobin Concent 32.8 G/DL (32.0-36.0) Red Cell Distribution Width 15.2 % (11.6-14.8) H Platelet Count 228 K/UL (150-450) Mean Platelet Volume 6.3 FL (6.5-10.1) L Neutrophils (%) (Auto) % (45.0-75.0) Lymphocytes (%) (Auto) % (20.0-45.0) Monocytes (%) (Auto) % (1.0-10.0) Eosinophils (%) (Auto) % (0.0-3.0) Basophils (%) (Auto) % (0.0-2.0) Differential Total Cells Counted 100 Neutrophils % (Manual) 61 % (45-75) Lymphocytes % (Manual) 22 % (20-45) Monocytes % (Manual) 8 % (1-10) Eosinophils % (Manual) 8 % (0-3) H Basophils % (Manual) 1 % (0-2) Band Neutrophils 0 % (0-8) Platelet Estimate Adequate Platelet Morphology Normal Hypochromasia 3+ Anisocytosis 1+ Sodium Level 148 MMOL/L (136-145) H Potassium Level 3.3 MMOL/L (3.5-5.1) L Chloride Level 115 MMOL/L (98-107) H Carbon Dioxide Level 23 MMOL/L (21-32) Anion Gap 10 mmol/L (5-15) Blood Urea Nitrogen 11 mg/dL (7-18) Creatinine 0.7 MG/DL (0.55-1.30) Estimat Glomerular Filtration Rate > 60 mL/min (>60) Glucose Level 132 MG/DL (74-106) #H Calcium Level 7.7 MG/DL (8.5-10.1) L Plan Problems: (1) Cellulitis of right upper extremity Assessment & Plan: This is a 69-year-old male with fevers, leukocytosis, abnormal labs, right elbow cellulitis identified upper extremity. There is significant erythema edema without drainage or fluctuance. The edema is pitting and the right upper extremity does have a contracture at the level of the elbow. With gentle manipulation can slowly begin to straighten the elbow but does have overall limited movement. Plain films identified no fractures noted. No history of fall. No trauma identifiable on examination. Though this could potentially be a infectious process looks inflammatory in nature potentially dependent edema versus venous congestion. Ultrasound upper extremity will be ordered. Pillow to be placed underneath the axilla and to help elevate the elbow. Pillow placed in between the elbow to allow for some decompression. Will monitor skin closely as edema worsening and could breakdown. 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 Historical scar with hyperpigmentation Sacrum . Area of non-blanching erythema also noted at previously injured site. Base of scrotum is erythematous with partial thickness shearing. Generalized Maculopapular red rash noted. Cleanse GT site with Soap and tepid water. Apply Zinc Oxide Paste to GT site Three times daily. Apply Moisture Barrier Paste to Buttocks . Cover with Optifoam drsg. Change every 3 days and prn. Apply Moisture Barrier Paste to Scrotum with each Incontinence care. Reposition at least every 2hours or as tolerated. Off-load heels with Pillow. DAILY ESTIMATED NEEDS: Needs based on DM, critical care 68kg abw 22-28 kcals/kg 8764-7738 total kcals 1.2-2 g protein/kg 81-136 g total protein 25-30 mL/kg 6574-4538 total fluid mLs NUTRITION DIAGNOSIS: 1) Swallowing difficulty r/t respiratory status as evidenced by pt is vent dep via trach, on GT feeds CURRENT TF: Glucerna 1.2 @ 65ml/hr x 20 hrs ENTERAL NUTRITION RECOMMENDATIONS: Glucerna 1.2 @ 65ml/hr x 20 hrs to provide 1300ml, 1560kcal, 78g prot, 1046ml free water - Maintain current TF as ordered - Once in stock, add prosource 1 pack QD for additional 11g prot to better meet est needs - HOB over 30 degrees/ water flush 170ml q 6hrs For continuous run x 24 hrs, rec Glucerna 1.2 @ 55ml/hr x 24 hrs to provide 1320ml, 1584kcal, 79g prot, 1063ml free water ADDITIONAL RECOMMENDATIONS: (1) Per SNF: HT=66" [id number] (June 2019) (2) Monitor lytes closely, replete as needed (low phos) (3) Skin integrity: add Shoaib BID via PEG TF @ goal will provide 100% RDI Jaden Doshi Jul 31, 2019 13:49
[2019-07-31 16:00] VITALS: BP 140/70
--- NOTE | 2019-07-31 16:49 | Pulmonolgy Critical Care Note ---
Critical Care - Asmt/Plan Problems: (1) Severe sepsis (2) Severe anemia (3) Nosocomial pneumonia (4) Chronic respiratory failure (5) Cellulitis of right upper extremity (6) Tracheostomy dependence (7) Contracture of joint of multiple sites (8) Diabetes mellitus (9) Vegetative state (10) Cerebrovascular accident (CVA) Respiratory: monitor respiratory rate, adjust FIO2, CXR Cardiac: continue to monitor HR/BP Renal: F/U I&O, keep IV fluid Infectious Disease: check cultures, continue antibiotics Gastrointestinal: continue feedings/current rate Endocrine: monitor blood sugar, continue sliding scale insulin Hematologic: transfuse if hgb<8.5 - one unit today Neurologic: PRN Ativan, PRN Morphine, keep patient comfortable Affect: PRN ativan Prophylaxis: Protonix Disposition: keep in ICU Notes Reviewed: coupler, cardio, renal Discussed with: nurses, consultants, rifle case repairerfocused factory manager - Objective Last 24 Hour Vital Signs Date Time Temp Pulse Resp B/P (MAP) Pulse Ox O2 Delivery O2 Flow Rate FiO2 07/31/19 16:00 Mechanical Ventilator 07/31/19 16:00 98.2 68 23 140/70 (93) 100 07/31/19 16:00 40 07/31/19 15:21 63 20 40 07/31/19 14:13 148/73 07/31/19 12:36 61 07/31/19 12:00 40 07/31/19 12:00 99.9 62 20 148/73 (98) 100 07/31/19 12:00 Mechanical Ventilator 07/31/19 11:08 61 18 40 07/31/19 10:03 44 07/31/19 08:44 157/78 07/31/19 08:44 84 157/78 07/31/19 08:39 84 07/31/19 08:00 98.6 80 22 157/78 (104) 98 07/31/19 08:00 40 07/31/19 08:00 Mechanical Ventilator 07/31/19 07:23 79 23 40 07/31/19 05:11 156/82 07/31/19 04:00 Mechanical Ventilator 07/31/19 04:00 62 07/31/19 04:00 40 07/31/19 04:00 98.2 72 24 156/82 (106) 100 07/31/19 03:26 79 29 40 07/31/19 00:00 Mechanical Ventilator 07/31/19 00:00 98.3 60 15 136/70 (92) 98 07/31/19 00:00 62 07/30/19 23:03 64 18 40 07/30/19 21:21 148/75 07/30/19 20:04 57 151/71 07/30/19 20:00 Mechanical Ventilator 07/30/19 20:00 57 07/30/19 20:00 98.1 59 20 148/75 (99) 99 07/30/19 20:00 40 07/30/19 19:44 60 18 40 Status: awake Condition: critical, improving HEENT: atraumatic Neck: full ROM Lungs: rales, rhonchi Heart: HR/BP stable Abdomen: soft, non-tender Extremities: no C/C/E Micro: Microbiology Date/Time Source Procedure Growth Status 07/28/19 19:24 Nasopharynx Coronavirus COVID-19 PCR ([facility]RIAN) - Final Complete Accucheck: 131 Critical Care - Subjective Condition: critical EKG Rhythm: Sinus Rhythm FI02: 40 Vent Support Breath Rate: 10 Vent Support Mode: AC Vent Tidal Volume: 500 Sputum Amount: Moderate PEEP: 5.0 PIP: 22 Tube Feeding Amount: 40 I&O: Intake and Output 07/30/19 07/31/19 19:00 07:00 Intake Total 240 ml 635 ml Output Total 575 ml 600 ml Balance -335 ml 35 ml Intake Free Water 140 ml IV Total 55 ml Tube Feeding 240 ml 440 ml Output Urine Total 575 ml 600 ml Labs: Laboratory Tests Test 07/31/19 04:00 White Blood Count 8.4 K/UL (4.8-10.8) Red Blood Count 2.92 M/UL (4.70-6.10) L Hemoglobin 7.7 G/DL (14.2-18.0) L Hematocrit 23.4 % (42.0-52.0) L Mean Corpuscular Volume 80 FL (80-99) Mean Corpuscular Hemoglobin 26.3 PG (27.0-31.0) L Mean Corpuscular Hemoglobin Concent 32.8 G/DL (32.0-36.0) Red Cell Distribution Width 15.2 % (11.6-14.8) H Platelet Count 228 K/UL (150-450) Mean Platelet Volume 6.3 FL (6.5-10.1) L Neutrophils (%) (Auto) % (45.0-75.0) Lymphocytes (%) (Auto) % (20.0-45.0) Monocytes (%) (Auto) % (1.0-10.0) Eosinophils (%) (Auto) % (0.0-3.0) Basophils (%) (Auto) % (0.0-2.0) Differential Total Cells Counted 100 Neutrophils % (Manual) 61 % (45-75) Lymphocytes % (Manual) 22 % (20-45) Monocytes % (Manual) 8 % (1-10) Eosinophils % (Manual) 8 % (0-3) H Basophils % (Manual) 1 % (0-2) Band Neutrophils 0 % (0-8) Platelet Estimate Adequate Platelet Morphology Normal Hypochromasia 3+ Anisocytosis 1+ Sodium Level 148 MMOL/L (136-145) H Potassium Level 3.3 MMOL/L (3.5-5.1) L Chloride Level 115 MMOL/L (98-107) H Carbon Dioxide Level 23 MMOL/L (21-32) Anion Gap 10 mmol/L (5-15) Blood Urea Nitrogen 11 mg/dL (7-18) Creatinine 0.7 MG/DL (0.55-1.30) Estimat Glomerular Filtration Rate > 60 mL/min (>60) Glucose Level 132 MG/DL (74-106) #H Calcium Level 7.7 MG/DL (8.5-10.1) Yomi Lema MD Jul 31, 2019 16:49
--- NOTE | 2019-07-31 18:30 | NUR ---
NURSE NOTES: Started 1st. 1unit PRBC with order of 2 units. No a/r noted.
--- NOTE | 2019-07-31 18:57 | NUR ---
NURSE NOTES: Medications held for 1800 via gtube due to blood transfusion on going.
--- NOTE | 2019-07-31 19:40 | NUR ---
HAND-OFF: Report given to MELISA Morfin. 1st PRBC is running at 150cc/HR. No adversay action. RN notified 2nd PRBC is on order.
--- NOTE | 2019-07-31 19:41 | NUR ---
NURSE NOTES: received pt from Eleazar RN and Olivia RN., pt is resting on the bed and awake obtunded. vent is in place no SOB noted.O2sat is at 98%. Gtube site is clean, patent, and intact. left upper arm PICC line is clean, and patent, and intact. call light within reach. will continue to monitor pt with plan of care.
--- NOTE | 2019-07-31 19:42 | NUR ---
NURSE NOTES: pt is getting 1 RBC unit no adverse reaction is noted at this moment.
--- NOTE | 2019-07-31 19:45 | NUR ---
NURSE NOTES: Per Dr. Weaver it is okay to give 2nd unit of RBC tomorrow morning 08.01.2019 when RBC is ready to give. noted and will carry on.
[2019-07-31 20:00] VITALS: BP 129/61
--- NOTE | 2019-07-31 20:15 | Infectious Diseases Prog Note ---
Assessment/Plan Assessment/Plan Assessment: Sepsis Probable PNA- COVID19 neg x2 (resident from SNF with large outbreak) -07/26 CXR: Left lung infiltrates and effusion unchanged. -07/25 sp cx MDR ABC (S colistin/polymixin B; suspect colonizer), P. mirabilis, probable AMp-C (S Cefepime, Zosyn, Meropenem) -CXR: Retrocardiac atelectasis with possible tiny left pleural effusion, correlate to exclude pneumonia.Cardiomegaly. Low lung volumes with bronchovascular crowding. -07/24 SARS-Cov2 PCR neg R elbow cellulitis- r/o abscess; improving -CT R elbow: p -xray elbow: : Limited and essentially nondiagnostic. No definite acute abnormality -V. duplex: no DVT -07/24 Bcx NTD Fever; SP Mild leukocytosis, recurrent Probable Scabies, sp rx hx of MSSA,CONS bacteremia 05/2018- suspected 2ry to PICC line Hx of providencia PNA 05/2018 Dm2 HTN CVA/TIA CHF seizure disorder contractures chronic resp failure s/p trach/vent dependant vegetative state 2ry to anoxic brain injury SNF resident (cristian hern[facility]dez) Plan: -Continue IV Vancomycin #6/7-10 for cellulitis and pending CT -Cefepime #1 for PNA -if worsening fevers, leukocytosis, switch Cefepime to Polymixin B -07/29 SP Zosyn #6 -07/26 SP Ivermectin and permethrin cream x1 -f/u cx -Monitor CBC/CMP, temperatures -COVID19 neg x2- will dc isolation as afebrile >72hrs and alternate diagnosis ( cellulitis, bacterial PNA) -trach care -wound care -Sx and ortho f/u -f/u CT Thank you for consulting [facility]. Will continue to follow along with you. Discussed with RN Subjective Allergies: Coded Allergies: No Known Allergies (Unverified , 05/27/18) Subjective Afebrile. FiO2 40%. two PRBC ordered. no leukocytosis. Objective Vital Signs Last 24 Hour Vital Signs Date Time Temp Pulse Resp B/P (MAP) Pulse Ox O2 Delivery O2 Flow Rate FiO2 07/31/19 20:00 98.2 57 16 129/61 (83) 99 07/31/19 19:05 57 17 40 07/31/19 16:00 Mechanical Ventilator 07/31/19 16:00 98.2 68 23 140/70 (93) 100 07/31/19 16:00 62 07/31/19 16:00 40 07/31/19 15:21 63 20 40 07/31/19 14:13 148/73 07/31/19 12:36 61 07/31/19 12:00 40 07/31/19 12:00 99.9 62 20 148/73 (98) 100 07/31/19 12:00 Mechanical Ventilator 07/31/19 11:08 61 18 40 07/31/19 10:03 44 07/31/19 08:44 157/78 07/31/19 08:44 84 157/78 07/31/19 08:39 84 07/31/19 08:00 98.6 80 22 157/78 (104) 98 07/31/19 08:00 40 07/31/19 08:00 Mechanical Ventilator 07/31/19 07:23 79 23 40 07/31/19 05:11 156/82 07/31/19 04:00 Mechanical Ventilator 07/31/19 04:00 62 07/31/19 04:00 40 07/31/19 04:00 98.2 72 24 156/82 (106) 100 07/31/19 03:26 79 29 40 07/31/19 00:00 Mechanical Ventilator 07/31/19 00:00 98.3 60 15 136/70 (92) 98 07/31/19 00:00 62 07/30/19 23:03 64 18 40 07/30/19 21:21 148/75 Height (Feet): 5 Height (Inches): 8.00 Weight (Pounds): 145 Objective Gen: chornically ill, no distress HEENT: trach in place, EOMI Lungs: no tachypnea, no use of accessory muscles Abd: no distended skin: normal pigmentation Laboratory Tests Test 07/31/19 04:00 White Blood Count 8.4 K/UL (4.8-10.8) Red Blood Count 2.92 M/UL (4.70-6.10) L Hemoglobin 7.7 G/DL (14.2-18.0) L Hematocrit 23.4 % (42.0-52.0) L Mean Corpuscular Volume 80 FL (80-99) Mean Corpuscular Hemoglobin 26.3 PG (27.0-31.0) L Mean Corpuscular Hemoglobin Concent 32.8 G/DL (32.0-36.0) Red Cell Distribution Width 15.2 % (11.6-14.8) H Platelet Count 228 K/UL (150-450) Mean Platelet Volume 6.3 FL (6.5-10.1) L Neutrophils (%) (Auto) % (45.0-75.0) Lymphocytes (%) (Auto) % (20.0-45.0) Monocytes (%) (Auto) % (1.0-10.0) Eosinophils (%) (Auto) % (0.0-3.0) Basophils (%) (Auto) % (0.0-2.0) Differential Total Cells Counted 100 Neutrophils % (Manual) 61 % (45-75) Lymphocytes % (Manual) 22 % (20-45) Monocytes % (Manual) 8 % (1-10) Eosinophils % (Manual) 8 % (0-3) H Basophils % (Manual) 1 % (0-2) Band Neutrophils 0 % (0-8) Platelet Estimate Adequate Platelet Morphology Normal Hypochromasia 3+ Anisocytosis 1+ Sodium Level 148 MMOL/L (136-145) H Potassium Level 3.3 MMOL/L (3.5-5.1) L Chloride Level 115 MMOL/L (98-107) H Carbon Dioxide Level 23 MMOL/L (21-32) Anion Gap 10 mmol/L (5-15) Blood Urea Nitrogen 11 mg/dL (7-18) Creatinine 0.7 MG/DL (0.55-1.30) Estimat Glomerular Filtration Rate > 60 mL/min (>60) Glucose Level 132 MG/DL (74-106) #H Calcium Level 7.7 MG/DL (8.5-10.1) L Current Medications Medications (Trade) Dose Ordered Sig/Bhupinder Route PRN Reason Start Time Stop Time Status Last Admin Dose Admin Acetaminophen (Tylenol) 650 mg Q4H PRN GT fever and mild pain 07/26/19 16:30 08/25/19 16:29 07/28/19 15:24 Albuterol Sulfate (Proventil MDI) 2 puff Q3H PRN INH Shortness of Breath 07/26/19 16:30 10/24/19 16:29 Ascorbic Acid (Vitamin C) 500 mg DAILY GT 07/27/19 09:00 08/26/19 08:59 07/31/19 08:39 Atorvastatin Calcium (Lipitor) 10 mg BEDTIME GT 07/26/19 21:00 10/24/19 20:59 07/30/19 20:03 Cefepime HCl 1 gm/ Dextrose 55 ml @ 110 mls/hr EVERY 8 HOURS IVPB 07/30/19 22:00 08/06/19 21:59 07/31/19 14:13 Chlorhexidine Gluconate (Jasmin-Hex 2%) 1 applic DAILY@2000 TOPIC 07/26/19 20:00 10/24/19 19:59 07/30/19 20:03 Clonidine HCl (Catapres Tab) 0.1 mg Q8H PRN GT For High Blood Pressure 07/26/19 16:44 10/24/19 16:43 07/29/19 22:24 Dextrose (Dextrose 50%) 25 ml Q30M PRN IV Hypoglycemia 07/26/19 16:30 10/24/19 16:29 Dextrose (Dextrose 50%) 50 ml Q30M PRN IV Hypoglycemia 07/26/19 16:30 10/24/19 16:29 Docusate Sodium (Colace) 100 mg DAILY GT 07/27/19 09:00 08/26/19 08:59 07/31/19 08:45 Ferrous Sulfate (Feosol) 325 mg DAILY GT 07/27/19 09:00 10/25/19 08:59 07/31/19 08:38 Glimepiride (AmaryL) 4 mg BID GT 07/26/19 18:00 08/25/19 17:59 07/31/19 08:39 Heparin Sodium (Porcine) (Heparin 5000 units/ml) 5,000 units EVERY 12 HOURS SUBQ 07/26/19 09:00 09/09/19 08:59 07/31/19 08:46 Hydralazine HCl (Apresoline) 100 mg EVERY 8 HOURS GT 07/30/19 06:00 10/24/19 21:59 07/31/19 14:13 Insulin Aspart (NovoLOG) Q6HR SUBQ 07/26/19 18:00 10/24/19 16:29 07/30/19 11:49 Levetiracetam (Keppra) 1,500 mg DAILY GT 07/27/19 09:00 08/26/19 08:59 07/31/19 08:45 Lisinopril (PriniviL) 40 mg DAILY GT 07/27/19 09:00 08/26/19 08:59 07/31/19 08:44 Metformin HCl (Glucophage) 1,000 mg BID ORAL 07/26/19 18:00 08/25/19 17:59 07/31/19 08:39 Metoprolol Tartrate (Lopressor) 50 mg Q12HR ORAL 07/26/19 09:00 10/24/19 08:59 07/31/19 08:44 Ondansetron HCl (Zofran) 4 mg Q4H PRN GT Nausea & Vomiting 07/26/19 16:30 08/25/19 16:29 Pantoprazole (Protonix) 40 mg EVERY 12 HOURS IVP 07/26/19 09:00 08/25/19 08:59 07/31/19 08:45 Potassium Chloride (K-Dur) 40 meq TWICE A DAY GT 07/27/19 18:00 10/25/19 17:59 07/31/19 08:40 Topiramate (Topamax) 200 mg BID GT 07/26/19 18:00 08/25/19 17:59 07/31/19 08:43 Vancomycin HCl ([facility] pharmacy to dose) 1 ea DAILY PRN MISC rx protocol 07/31/19 15:15 08/30/19 15:14 Vancomycin HCl 750 mg/Dextrose 275 ml @ 184 mls/hr Q12H IVPB 07/31/19 11:00 08/05/19 10:59 07/31/19 11:50 Vitamin D (Vitamin D) 5,000 intlu DAILY GT 07/26/19 09:00 08/25/19 08:59 07/31/19 08:39 Zinc Oxide (Zinc Oxide) 1 applic THREE TIMES A DAY PRN TOPIC REDNESS 07/26/19 12:45 10/24/19 12:44 Josh Muller MD Jul 31, 2019 20:15
--- NOTE | 2019-07-31 20:40 | NUR ---
NURSE NOTES: finished 1 unit of RBC at this moment. pt has no s/s of adverse reaction. VS:: Temp 98.2 Pulse 59 BP 152/73, call light within reach. will continue to monitor pt closely.
[2019-07-31] MEDS: Dyna-Hex 2% Top Sol 2oz TOPIC SCH (20:59)
--- NOTE | 2019-07-31 21:10 | NUR ---
NURSE NOTES: Left message to Dr. Condon regarding HR 32/min for 1-2 mins. pt just finished getting 1 pack of RBC, vital signs are stable. will wait for call back from the Dr. Condon. call light within reach. will continue to monitor pt with plan of care.
--- NOTE | 2019-07-31 21:43 | NUR ---
NURSE NOTES: left Voice mail to Dr. Condon regarding pt's low Hr 29/min for 6 seconds @ 2048. right now pt is awake and resting on the bed , open his eyes. BP 150/70 T 98.2 HR ranges from 55-59/min. will wait for call back. no SOB noted from pt.
[2019-08-01] VITALS (7 sets, daily range): BP systolic 134–176; BP diastolic 73–83
--- NOTE | 2019-08-01 01:00 | Progress Note ---
DATE: 07/31/2019 SUBJECTIVE: The patient is afebrile, hemodynamically stable. PHYSICAL EXAMINATION: VITAL SIGNS: Blood pressure 140/78, pulse is 68, respirations 23, temperature 98.2. HEENT: Eyes were normal. ENT, mucous membranes were moist and intact. NECK: Supple with no JVD without lymph nodes. Tracheostomy site is clean. LUNGS: Clear without rhonchi, rales or wheezing. HEART: Normal sounds with regular beats. ABDOMEN: Soft, nontender with normal bowel sounds. Gastrostomy site is clean. EXTREMITIES: Warm without cyanosis, clubbing, or edema. LABORATORY AND DIAGNOSTIC DATA: Hemoglobin is 7.7, hematocrit 23.4 with MCV of 80, WBC of 8.4, and platelets 228. His BUN and creatinine are 11 and 0.7 respectively. His sodium 148, potassium 3.3, chloride 115, CO2 is 23. His sputum culture from July 25 showed Acinetobacter baumannii, which was MDR, and Proteus mirabilis. The second COVID-19 test was done and detected negative. Abdominal x-ray done yesterday revealed nonspecific gas pattern. IMPRESSION: The patient cellulitis of the right of elbow. The joint apparently is not involved. The venous Duplex scan was negative on venous and arterial imaging. The patient currently is on vancomycin 750 mg IV piggyback q.12, cefepime 1 g IV piggyback q.8. Repeat laboratory tests will be done in the a.m. Janette Weaver M.D. DR: DEJON JOB#: [id number] CC:
--- NOTE | 2019-08-01 04:00 | NUR ---
NURSE NOTES: cleaned pt, provided new gown, provided oral care q 2hrs. repositioned Q 2hrs. no SOB noted. call light within reach. continue to monitor pt with plan of care.
[2019-08-01] MEDS: HydrALAZINE 25mg tab ORAL PRN ×2 (04:32→21:12)
[2019-08-01] MEDS: HydrALAZINE 50mg tab GT SCH ×3 (05:39→21:13)
[2019-08-01] MEDS: Cefepime HCl 1 GM in D5W 55 ML IVPB SCH ×3 (05:40→21:12)
[2019-08-01] MEDS: NovoLOG Insulin Flexpen SUBQ SCH ×4 (05:43→23:00)
[2019-08-01 06:22] LABS: BASOPHILS % (AUTO) 1.2 % (0.0-2.0); EOSINOPHILS % (AUTO) 7.2 % (0.0-3.0); HEMATOCRIT 28.8 % (42.0-52.0); HEMOGLOBIN 9.5 G/DL (14.2-18.0); LYMPHOCYTES % (AUTO) 19.5 % (20.0-45.0); MEAN CORPUSCULAR VOLUME 81 FL (80-99); MONOCYTES % (AUTO) 10.2 % (1.0-10.0); PLATELET COUNT 231 K/UL (150-450); RED BLOOD COUNT 3.57 M/UL (4.70-6.10); RED CELL DISTRIBUTION WIDTH 15.6 % (11.6-14.8); WHITE BLOOD COUNT 8.6 K/UL (4.8-10.8)
[2019-08-01 06:26] LABS: ANION GAP 7 mmol/L (5-15); BLOOD UREA NITROGEN 13 mg/dL (7-18); CALCIUM 8.6 MG/DL (8.5-10.1); CARBON DIOXIDE 24 MMOL/L (21-32); CHLORIDE 112 MMOL/L (98-107); CREATININE 0.8 MG/DL (0.55-1.30); POTASSIUM 4.1 MMOL/L (3.5-5.1); SODIUM 143 MMOL/L (136-145)
--- NOTE | 2019-08-01 07:15 | NUR ---
NURSE NOTES: Report received from MELISA Morfin. Patient asleep during assessment. Tolerating vent settings as prescribed. Crow catheter in place - intact and draining yellow urine. Bed in lowest and locked position. Bed alarm on. Will continue to monitor.
--- NOTE | 2019-08-01 07:16 | Pulmonology Progress Note ---
Subjective ROS Limited/Unobtainable: Yes Allergies: Coded Allergies: No Known Allergies (Unverified , 05/27/18) Subjective afebrile, no leukocytosis no signs of resp distress on current settings Objective Last 24 Hour Vital Signs Date Time Temp Pulse Resp B/P (MAP) Pulse Ox O2 Delivery O2 Flow Rate FiO2 08/01/19 05:39 155/70 08/01/19 04:32 160/77 08/01/19 04:00 58 08/01/19 04:00 Mechanical Ventilator 08/01/19 04:00 97.9 60 20 160/77 (104) 100 08/01/19 04:00 40 08/01/19 03:00 60 21 40 08/01/19 00:00 58 08/01/19 00:00 Mechanical Ventilator 08/01/19 00:00 98.9 55 16 153/73 (99) 98 07/31/19 23:00 57 17 40 07/31/19 21:21 152/73 07/31/19 21:00 55 156/80 07/31/19 20:00 Mechanical Ventilator 07/31/19 20:00 40 07/31/19 20:00 98.2 57 16 129/61 (83) 99 07/31/19 19:31 54 07/31/19 19:05 57 17 40 07/31/19 16:00 Mechanical Ventilator 07/31/19 16:00 98.2 68 23 140/70 (93) 100 07/31/19 16:00 62 07/31/19 16:00 40 07/31/19 15:21 63 20 40 07/31/19 14:13 148/73 07/31/19 12:36 61 07/31/19 12:00 40 07/31/19 12:00 99.9 62 20 148/73 (98) 100 07/31/19 12:00 Mechanical Ventilator 07/31/19 11:08 61 18 40 07/31/19 10:03 44 07/31/19 08:44 157/78 07/31/19 08:44 84 157/78 07/31/19 08:39 84 07/31/19 08:00 98.6 80 22 157/78 (104) 98 07/31/19 08:00 40 07/31/19 08:00 Mechanical Ventilator 07/31/19 07:23 79 23 40 Intake and Output 07/31/19 08/01/19 18:59 06:59 Intake Total 894 ml 1145 ml Output Total 700 ml 600 ml Balance 194 ml 545 ml Intake Free Water 200 ml 120 ml IV Total 184 ml 385 ml Tube Feeding 510 ml 640 ml Output Urine Total 700 ml 600 ml # Bowel Movements 1 General Appearance: no acute distress, other - bedriden vent dependent male in NAD, Vent AC 500-40%-[id number] HEENT: status post trach - Portex #7, secretions moderate amount, white color, thick consistency Respiratory: other - few isolated rhonchi Cardiovascular: bradycardia - komal, SB with 1 st degree AV block , other - LUE PICC intact Abdomen: soft, non tender, non distended, other - G tube Extremities: no edema, other - contracted BLE and BUE ; R elbow erythema and edema Neurologic: other - awake, not responsive Musculoskeletal: atrophy - BLE , other - contracted x 4 BUE and BLE Laboratory Tests 08/01/19 05:52: White Blood Count 8.6, Red Blood Count 3.57L, Hemoglobin 9.5L, Hematocrit 28.8L , Mean Corpuscular Volume 81, Mean Corpuscular Hemoglobin 26.6L, Mean Corpuscular Hemoglobin Concent 32.8, Red Cell Distribution Width 15.6H, Platelet Count 231, Mean Platelet Volume 6.9, Neutrophils (%) (Auto) 62.0, Lymphocytes (%) (Auto) 19.5L, Monocytes (%) (Auto) 10.2H, Eosinophils (%) (Auto ) 7.2H, Basophils (%) (Auto) 1.2, Sodium Level 143, Potassium Level 4.1, Chloride Level 112H, Carbon Dioxide Level 24, Anion Gap 7, Blood Urea Nitrogen 13, Creatinine 0.8, Estimat Glomerular Filtration Rate > 60, Glucose Level 185H , Calcium Level 8.6 Current Medications Medications (Trade) Dose Ordered Sig/Bhupinder Route PRN Reason Start Time Stop Time Status Last Admin Dose Admin Acetaminophen (Tylenol) 650 mg Q4H PRN GT fever and mild pain 07/26/19 16:30 08/25/19 16:29 07/28/19 15:24 Albuterol Sulfate (Proventil MDI) 2 puff Q3H PRN INH Shortness of Breath 07/26/19 16:30 10/24/19 16:29 Ascorbic Acid (Vitamin C) 500 mg DAILY GT 07/27/19 09:00 08/26/19 08:59 07/31/19 08:39 Atorvastatin Calcium (Lipitor) 10 mg BEDTIME GT 07/26/19 21:00 10/24/19 20:59 07/31/19 21:20 Cefepime HCl 1 gm/ Dextrose 55 ml @ 110 mls/hr EVERY 8 HOURS IVPB 07/30/19 22:00 08/06/19 21:59 08/01/19 05:40 Chlorhexidine Gluconate (Jasmin-Hex 2%) 1 applic DAILY@2000 TOPIC 07/26/19 20:00 10/24/19 19:59 07/31/19 20:59 Dextrose (Dextrose 50%) 25 ml Q30M PRN IV Hypoglycemia 07/26/19 16:30 10/24/19 16:29 Dextrose (Dextrose 50%) 50 ml Q30M PRN IV Hypoglycemia 07/26/19 16:30 10/24/19 16:29 Docusate Sodium (Colace) 100 mg DAILY GT 07/27/19 09:00 08/26/19 08:59 07/31/19 08:45 Ferrous Sulfate (Feosol) 325 mg DAILY GT 07/27/19 09:00 10/25/19 08:59 07/31/19 08:38 Glimepiride (AmaryL) 4 mg BID GT 07/26/19 18:00 08/25/19 17:59 07/31/19 08:39 Heparin Sodium (Porcine) (Heparin 5000 units/ml) 5,000 units EVERY 12 HOURS SUBQ 07/26/19 09:00 09/09/19 08:59 07/31/19 08:46 Hydralazine HCl (Apresoline) 25 mg Q6H PRN ORAL SBP above 150 08/01/19 02:45 10/30/19 02:44 08/01/19 04:32 Hydralazine HCl (Apresoline) 100 mg EVERY 8 HOURS GT 07/30/19 06:00 10/24/19 21:59 08/01/19 05:39 Insulin Aspart (NovoLOG) Q6HR SUBQ 07/26/19 18:00 10/24/19 16:29 08/01/19 05:43 Levetiracetam (Keppra) 1,500 mg DAILY GT 07/27/19 09:00 08/26/19 08:59 07/31/19 08:45 Lisinopril (PriniviL) 40 mg DAILY GT 07/27/19 09:00 08/26/19 08:59 07/31/19 08:44 Metformin HCl (Glucophage) 1,000 mg BID ORAL 07/26/19 18:00 08/25/19 17:59 07/31/19 08:39 Metoprolol Tartrate (Lopressor) 25 mg Q12HR ORAL 08/01/19 09:00 10/30/19 08:59 Ondansetron HCl (Zofran) 4 mg Q4H PRN GT Nausea & Vomiting 07/26/19 16:30 08/25/19 16:29 Pantoprazole (Protonix) 40 mg EVERY 12 HOURS IVP 07/26/19 09:00 08/25/19 08:59 07/31/19 21:21 Potassium Chloride (K-Dur) 40 meq TWICE A DAY GT 07/27/19 18:00 10/25/19 17:59 07/31/19 08:40 Topiramate (Topamax) 200 mg BID GT 07/26/19 18:00 08/25/19 17:59 07/31/19 08:43 Vancomycin HCl ([facility] pharmacy to dose) 1 ea DAILY PRN MISC rx protocol 07/31/19 15:15 08/30/19 15:14 Vancomycin HCl 750 mg/Dextrose 275 ml @ 184 mls/hr Q12H IVPB 07/31/19 11:00 08/05/19 10:59 07/31/19 23:20 Vitamin D (Vitamin D) 5,000 intlu DAILY GT 07/26/19 09:00 08/25/19 08:59 07/31/19 08:39 Zinc Oxide (Zinc Oxide) 1 applic THREE TIMES A DAY PRN TOPIC REDNESS 07/26/19 12:45 10/24/19 12:44 Assessment/Plan Assessment/Plan ASSESSMENT Severe sepsis Pneumonia Suspected COVID-19 -ruled out Chronic respiratory failure, ventilator dependent with tracheostomy status RUE cellulitis , rule out abscess Heart block 2 nd degree Anemia, status post blood transfusion Diabetes mellitus History of CVA Dysphagia, feeding by G tube Hypertension Seizure disorder Scabies, status post treatment Vegetative state Multiple contractures PLAN OF CARE ALY vent support, trach care baseline ABG and titrate settings as needed fup with CXR COVID-19 07/24 and 07/27 NGT off isolation start HHN abx as per ID BCX NGT 8 SCX + ACB MDR ? colonizer and Proteus, will add Colistin inhaler DVT prophylaxis aspir precautions HB 2 nd degree noted cardio consulted, BB dose decreased, Clonidine used for BP spikes stopped and changed to Hydralazine no need for pacemaker placement as per cardio ortho surgeon seen and evaluated ; no need for surgical intervention at this time CT scan RUE pending general surgeon follows venous duplex RUE -no DVT seizure precautions , continue Keppra and Topamax s/p blood transfusion, stool OB NGT HH remains at baseline after transfusion s/p treatment for scabies GI prophylaxis case discussed and evaluated by supervising physician Brittani Baptiste NP Aug 01, 2019 07:16
--- NOTE | 2019-08-01 07:22 | NUR ---
HAND-OFF: Report given to Eleazar RN., pt is stable condition, endorsed plan of care.
[2019-08-01] MEDS: Pantoprazole Inj IVP SCH ×2 (09:08→21:12)
[2019-08-01] MEDS: Heparin 5000 units/ml inj SUBQ SCH ×2 (09:09→21:11)
[2019-08-01] MEDS: Glimepiride 4mg tab GT SCH ×2 (09:11→17:58)
[2019-08-01] MEDS: Ascorbic Acid 500mg tab GT SCH (09:11)
[2019-08-01] MEDS: Vitamin D 1000 IU Tab GT SCH (09:11)
[2019-08-01] MEDS: metFORMIN 500mg tab ORAL SCH ×2 (09:11→18:00)
[2019-08-01] MEDS: levETIRAcetam 500mg/5ml Liquid GT SCH (09:12)
[2019-08-01] MEDS: Docusate 100mg/10ml Liq GT SCH (09:14)
[2019-08-01] MEDS: Topiramate 100mg tab GT SCH ×2 (09:15→18:00)
--- NOTE | 2019-08-01 09:15 | Consultation ---
DATE OF CONSULTATION: 07/31/2019 CARDIOLOGY CONSULTATION CONSULTING PHYSICIAN: Otto Condon MD. REQUESTING PHYSICIAN: Janette Weaver MD. REASON FOR ADMISSION: Second-degree heart block. HISTORY OF PRESENT ILLNESS: This is a 69-year-old male, who is ventilator dependent and has a chronic vegetative state. He was admitted almost a week ago with fever and right arm cellulitis. He is unable to communicate. He has been treated with antimicrobials. Over the past few days, he has had episodes of bradycardia and today second-degree heart block reviewed, asymptomatic. Strips reviewed by me revealed a type 1 second-degree AV block (Wenckebach conduction). PAST MEDICAL HISTORY: Includes seizure disorder, vegetative state, type 2 diabetes mellitus, hypertension, history of cerebrovascular accident, and tracheostomy. MEDICATIONS: Reviewed and reconciled. ALLERGIES: None known. FAMILY HISTORY: Noncontributory. REVIEW OF SYSTEMS: Not obtainable. Forty minutes time spent reviewing medical records and prior charts. PHYSICAL EXAMINATION: VITAL SIGNS: Blood pressure 140/70, heart rate 57, respiratory rate 17, afebrile. HEENT: Thin trach secretions. LUNGS: Bilateral breadth sounds with no wheezing. CARDIAC: Regular rhythm and rate. Normal S1, S2. Occasional ectopic beats. ABDOMEN: Soft with G-tube. EXTREMITIES: Trace dependent edema. LABORATORY DATA: White count 8.4, hemoglobin 7.7. Sodium 148, potassium 3.3, bicarb 23, BUN 11, creatinine 0.7. Magnesium level yesterday was 2.0. Troponin level yesterday was negative. Pro-natriuretic peptide yesterday was 2890. TSH on July 25 was 2.5. IMPRESSION: 1. Chronic vegetative state. 2. Ventilator-dependent respiratory failure. 3. Second-degree AV block type 1, asymptomatic. 4. Hypokalemia. 5. Dehydration. 6. Hypernatremia. 7. Cellulitis. 8. History of hypertension. 9. Chronic diastolic congestive heart failure. PLAN: 1. Decrease metoprolol to half dose for now. Reassess continued use of this drug over the next several days. 2. Discontinue p.r.n. clonidine, which has been used for blood pressure spikes. Replace with hydralazine. 3. Replace potassium. 4. Correct free-water deficit with hypotonic IV fluids. 5. Continue cardiac monitoring. 6. No indication for permanent pacemaker. Otto Condon M.D. DR: ISAIAH JOB#: [id number] CC:
[2019-08-01] MEDS: Ferrous Sulfate 300 MG/5 ML UDC GT SCH (09:16)
[2019-08-01] MEDS: Lisinopril 20mg tab GT SCH (09:17)
--- NOTE | 2019-08-01 09:19 | NUR ---
NURSE NOTES: Held Metoprolol secondary to HR 52 bpm. Will continue to monitor HR and notify MD.
[2019-08-01] MEDS: Colistin for inhalation INH SCH ×2 (10:35→22:07)
[2019-08-01] MEDS: Vancomycin 750 MG in D5W 275 ML IVPB SCH ×2 (11:10→23:03)
--- NOTE | 2019-08-01 12:31 | NUR ---
RD ASSESSMENT & RECOMMENDATIONS SEE CARE ACTIVITY FOR COMPLETE ASSESSMENT DAILY ESTIMATED NEEDS: Needs based on DM, critical care 68kg abw 22-28 kcals/kg 9836-0313 total kcals 1.2-2 g protein/kg 81-136 g total protein 25-30 mL/kg 8347-6534 total fluid mLs NUTRITION DIAGNOSIS: 1) Swallowing difficulty r/t respiratory status as evidenced by pt is vent dep via trach, on GT feeds CURRENT TF: Glucerna 1.2 @ 65ml/hr x 20 hrs ENTERAL NUTRITION RECOMMENDATIONS: Glucerna 1.2 @ 65ml/hr x 20 hrs + Prosource qdaily to provide 1300ml, 1560kcal, 78g +11g prot, 1046ml free water - Maintain current TF as ordered - Once in stock, add prosource 1 pack QD for additional 11g prot to better meet est needs - HOB over 30 degrees/ water flush 170ml q 6hrs For continuous run x 24 hrs, rec Glucerna 1.2 @ 57ml/hr x 24 hrs to provide 1368ml, 1642kcal, 82g prot, 1101ml free water ADDITIONAL RECOMMENDATIONS: 1) Per SNF: HT=66" [id number] (June 2019) 2) Monitor lytes closely, replete as needed 3) Skin integrity: add Shoaib BID via PEG TF @ goal will provide 100% RDI . .
[2019-08-01] MEDS ORDERED: Tubing Blood Filter IV ONE (13:37)
[2019-08-01] MEDS ORDERED: NS 275ml ONE (13:37)
--- NOTE | 2019-08-01 15:08 | NUR ---
NURSE NOTES: Dr. Condon at nursing station. Made aware in regards to heart rate episode of 29 and Paroxysmal AFIB w/ BBB and ordered to discontinue Metoprolol.
--- NOTE | 2019-08-01 17:39 | Surgery Progress Note ---
Surgery Progress Note Subjective Additional Comments cellulitis improved labs noted exam improved Objective Last 24 Hour Vital Signs Date Time Temp Pulse Resp B/P (MAP) Pulse Ox O2 Delivery O2 Flow Rate FiO2 08/01/19 16:00 Mechanical Ventilator 08/01/19 16:00 40 08/01/19 16:00 98.1 57 27 166/83 (110) 99 08/01/19 16:00 57 08/01/19 15:00 57 22 40 08/01/19 14:17 165/60 08/01/19 12:16 54 08/01/19 12:00 Mechanical Ventilator 08/01/19 12:00 40 08/01/19 11:55 98.2 62 16 176/78 (110) 100 08/01/19 11:42 56 08/01/19 10:45 59 22 100 Mechanical Ventilator 40 60 22 40 08/01/19 09:17 134/76 08/01/19 09:00 52 134/70 08/01/19 08:59 53 08/01/19 08:00 40 08/01/19 08:00 98.2 59 18 134/76 (95) 99 08/01/19 08:00 Mechanical Ventilator 08/01/19 07:00 57 16 40 08/01/19 05:39 155/70 08/01/19 04:32 160/77 08/01/19 04:00 58 08/01/19 04:00 Mechanical Ventilator 08/01/19 04:00 97.9 60 20 160/77 (104) 100 08/01/19 04:00 40 08/01/19 03:00 60 21 40 08/01/19 00:00 58 08/01/19 00:00 Mechanical Ventilator 08/01/19 00:00 98.9 55 16 153/73 (99) 98 07/31/19 23:00 57 17 40 07/31/19 21:21 152/73 07/31/19 21:00 55 156/80 07/31/19 20:00 Mechanical Ventilator 07/31/19 20:00 40 07/31/19 20:00 98.2 57 16 129/61 (83) 99 07/31/19 19:31 54 07/31/19 19:05 57 17 40 I&O Intake and Output 07/31/19 08/01/19 19:00 07:00 Intake Total 934 ml 1065 ml Output Total 700 ml 600 ml Balance 234 ml 465 ml Intake Free Water 230 ml 90 ml IV Total 184 ml 385 ml Tube Feeding 520 ml 590 ml Output Urine Total 700 ml 600 ml # Bowel Movements 1 Dressing: other Wound: other Drains: other Cardiovascular: RSR Respiratory: decreased breath sounds Abdomen: soft, non-tender, present bowel sounds Extremities: no cyanosis Laboratory Tests Test 08/01/19 05:52 White Blood Count 8.6 K/UL (4.8-10.8) Red Blood Count 3.57 M/UL (4.70-6.10) L Hemoglobin 9.5 G/DL (14.2-18.0) L Hematocrit 28.8 % (42.0-52.0) L Mean Corpuscular Volume 81 FL (80-99) Mean Corpuscular Hemoglobin 26.6 PG (27.0-31.0) L Mean Corpuscular Hemoglobin Concent 32.8 G/DL (32.0-36.0) Red Cell Distribution Width 15.6 % (11.6-14.8) H Platelet Count 231 K/UL (150-450) Mean Platelet Volume 6.9 FL (6.5-10.1) Neutrophils (%) (Auto) 62.0 % (45.0-75.0) Lymphocytes (%) (Auto) 19.5 % (20.0-45.0) L Monocytes (%) (Auto) 10.2 % (1.0-10.0) H Eosinophils (%) (Auto) 7.2 % (0.0-3.0) H Basophils (%) (Auto) 1.2 % (0.0-2.0) Sodium Level 143 MMOL/L (136-145) Potassium Level 4.1 MMOL/L (3.5-5.1) Chloride Level 112 MMOL/L (98-107) H Carbon Dioxide Level 24 MMOL/L (21-32) Anion Gap 7 mmol/L (5-15) Blood Urea Nitrogen 13 mg/dL (7-18) Creatinine 0.8 MG/DL (0.55-1.30) Estimat Glomerular Filtration Rate > 60 mL/min (>60) Glucose Level 185 MG/DL (74-106) H Calcium Level 8.6 MG/DL (8.5-10.1) Plan Problems: (1) Cellulitis of right upper extremity Assessment & Plan: This is a 69-year-old male with fevers, leukocytosis, abnormal labs, right elbow cellulitis identified upper extremity. There is significant erythema edema without drainage or fluctuance. The edema is pitting and the right upper extremity does have a contracture at the level of the elbow. With gentle manipulation can slowly begin to straighten the elbow but does have overall limited movement. Plain films identified no fractures noted. No history of fall. No trauma identifiable on examination. Though this could potentially be a infectious process looks inflammatory in nature potentially dependent edema versus venous congestion. Ultrasound upper extremity will be ordered. Pillow to be placed underneath the axilla and to help elevate the elbow. Pillow placed in between the elbow to allow for some decompression. Will monitor skin closely as edema worsening and could breakdown. 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 Historical scar with hyperpigmentation Sacrum . Area of non-blanching erythema also noted at previously injured site. Base of scrotum is erythematous with partial thickness shearing. Generalized Maculopapular red rash noted. Cleanse GT site with Soap and tepid water. Apply Zinc Oxide Paste to GT site Three times daily. Apply Moisture Barrier Paste to Buttocks . Cover with Optifoam drsg. Change every 3 days and prn. Apply Moisture Barrier Paste to Scrotum with each Incontinence care. Reposition at least every 2hours or as tolerated. Off-load heels with Pillow. DAILY ESTIMATED NEEDS: Needs based on DM, critical care 68kg abw 22-28 kcals/kg 1903-0378 total kcals 1.2-2 g protein/kg 81-136 g total protein 25-30 mL/kg 5401-3269 total fluid mLs NUTRITION DIAGNOSIS: 1) Swallowing difficulty r/t respiratory status as evidenced by pt is vent dep via trach, on GT feeds CURRENT TF: Glucerna 1.2 @ 65ml/hr x 20 hrs ENTERAL NUTRITION RECOMMENDATIONS: Glucerna 1.2 @ 65ml/hr x 20 hrs to provide 1300ml, 1560kcal, 78g prot, 1046ml free water - Maintain current TF as ordered - Once in stock, add prosource 1 pack QD for additional 11g prot to better meet est needs - HOB over 30 degrees/ water flush 170ml q 6hrs For continuous run x 24 hrs, rec Glucerna 1.2 @ 55ml/hr x 24 hrs to provide 1320ml, 1584kcal, 79g prot, 1063ml free water ADDITIONAL RECOMMENDATIONS: (1) Per SNF: HT=66" [id number] (June 2019) (2) Monitor lytes closely, replete as needed (low phos) (3) Skin integrity: add Shoaib BID via PEG TF @ goal will provide 100% RDI Jaden Doshi Aug 01, 2019 17:39
--- NOTE | 2019-08-01 19:22 | NUR ---
HAND-OFF: Report given to MELISA Guthrie. Patient in stable condition and tolerating vent settings well upon end of shift.
--- NOTE | 2019-08-01 19:40 | NUR ---
NURSE NOTES: Received report from Argelia VINCENT and Radha RN, pt. in bed obtunded- eyes open- no tracking noted, no signs or symptoms of acute cardiac or respiratory distress noted, bed alarm on, side rails up x's 3 and safety brakes engaged, side rails padded for seizure precautions- no seizure activity noted- upon assessment, pt. appears to be tolerating current vent settings well- AC 10, TV 500, peep 5, and fio2 at 40%- no distress noted, pt. appears to be tolerating current Feeding G tube feeding Glucerna 1.2 at 65cc/hr- no residual noted, pt. appears to be resting comfortably, ANGELES picc intact and patent- TKO, safety measures continued, will continue with plan of care.
[2019-08-01] MEDS: Dyna-Hex 2% Top Sol 2oz TOPIC SCH (21:11)
[2019-08-01] MEDS ORDERED: HydrALAZINE 25mg tab ORAL SCH (21:15)
--- NOTE | 2019-08-01 21:28 | NUR ---
NURSE NOTES: accidently pulled out prn dose Hydralazine 25mg- instead of 2200 hydralazine dose for 100mg- spoke with Evans at pharmacy will put in one time dose for hydralazine 75mg to equal 2200 dose- will non-admin 2200 dose-will continue to monitor pt.
--- NOTE | 2019-08-02 01:45 | Progress Note ---
DATE: 08/01/2019 CARDIOLOGY PROGRESS NOTE SUBJECTIVE: The patient continues to have asymptomatic episodes of bradyarrhythmias with junctional rhythm and episodes of second-degree type 1 AV block. The patient's blood pressure parameters have not been affected. The patient is of course comatose and cannot detect any symptoms. OBJECTIVE: VITAL SIGNS: Blood pressure 166/83, pulse 57, respirations 27, afebrile. LUNGS: Bilateral breath sounds. No wheezing. HEART: Regular rhythm and rate. Normal S1, S2. Trach site with secretions. EXTREMITIES: No edema. LABORATORY DATA: White count 8.6, hemoglobin 9.5. Potassium 4.1. TSH was 2.5 on 07/26/2019. IMPRESSION: 1. Respiratory failure. 2. Chronic vegetative state. 3. Second-degree type 1 AV block. 4. Corrected electrolyte abnormalities. 5. Conduction system disease. 6. Chronic diastolic congestive heart failure. 7. Hypertensive heart disease with episodes of labile blood pressure. PLAN: Beta-stacy dose was decreased yesterday, but the patient continues to have episodes of bradyarrhythmias. As such, we will discontinue beta-stacy dose completely at this time. We may need to advance other antihypertensives to compensate should there be rise in blood pressure parameters. Otto Condon M.D. DR: NELY JOB#: [id number] CC:
--- NOTE | 2019-08-02 03:45 | Progress Note ---
DATE: 08/01/2019 SUBJECTIVE: The patient is afebrile and hemodynamically stable. PHYSICAL EXAMINATION: VITAL SIGNS: Blood pressure 156/83, his pulse is 87, respirations 27, and temperature 98.1. HEENT: Eyes were normal. ENT, mucous membranes were moist and intact. NECK: Supple with no JVD without lymph nodes. Tracheostomy site is clean. LUNGS: Clear without rhonchi, rales, or wheezing. HEART: Normal sounds with regular beats. There is no tachycardia at rest and in fact there is borderline bradycardia. ABDOMEN: Soft, nontender with normal bowel sounds. Gastrostomy site is clean. EXTREMITIES: Warm without cyanosis, clubbing, or edema. The right elbow is substantially less erythematous, less warm, and palpation generate less tenderness and swelling for the time being change only slightly. LABORATORY AND DIAGNOSTIC DATA: His hemoglobin 9.5, hematocrit 28.8 with MCV of 81, WBC of 8.6, and platelets of 231. His BUN and creatinine is 13 and 0.8 respectively. Sodium is 143, potassium 4.1, chloride 112, and CO2 is 24. Sputum Gram stain done on 07/30/2019 grew Acinetobacter baumannii and Proteus mirabilis. IMPRESSION: The patient has cellulitis of the right elbow, which appeared to respond to the current antibiotics. He is on vancomycin 750 mg IV piggyback q.12 h. and cefepime 1 g IV piggyback q.8 h. today, colistimethate 75 mg IV piggyback q.12h. has been added. Repeat laboratory tests will be done in the a.m. Janette Weaver M.D. DR: CHRIS JOB#: [id number] CC:
[2019-08-02 04:00] VITALS: BP 160/70
[2019-08-02] MEDS: HydrALAZINE 25mg tab ORAL PRN (04:01)
[2019-08-02 04:51] LABS: BASOPHILS % (AUTO) 0.9 % (0.0-2.0); EOSINOPHILS % (AUTO) 5.9 % (0.0-3.0); HEMATOCRIT 28.1 % (42.0-52.0); HEMOGLOBIN 9.2 G/DL (14.2-18.0); LYMPHOCYTES % (AUTO) 17.7 % (20.0-45.0); MEAN CORPUSCULAR VOLUME 81 FL (80-99); MONOCYTES % (AUTO) 9.4 % (1.0-10.0); NEUTROPHILS % (AUTO) 66.1 % (45.0-75.0); PLATELET COUNT 245 K/UL (150-450); RED BLOOD COUNT 3.45 M/UL (4.70-6.10); RED CELL DISTRIBUTION WIDTH 15.9 % (11.6-14.8)
[2019-08-02 05:10] LABS: ANION GAP 12 mmol/L (5-15); BLOOD UREA NITROGEN 15 mg/dL (7-18); CALCIUM 8.7 MG/DL (8.5-10.1); CARBON DIOXIDE 24 MMOL/L (21-32); CHLORIDE 110 MMOL/L (98-107); CREATININE 0.8 MG/DL (0.55-1.30); POTASSIUM 3.8 MMOL/L (3.5-5.1); SODIUM 146 MMOL/L (136-145)
[2019-08-02] MEDS: Cefepime HCl 1 GM in D5W 55 ML IVPB SCH ×3 (05:14→21:03)
[2019-08-02] MEDS: NovoLOG Insulin Flexpen SUBQ SCH ×3 (05:15→17:57)
[2019-08-02] MEDS: HydrALAZINE 50mg tab GT SCH ×3 (05:34→21:06)
--- NOTE | 2019-08-02 07:32 | NUR ---
HAND-OFF: Report given to MELISA Luevano- pt. remains stable and no signs of distress noted- aware to f/u on any abnormal am labs.
--- NOTE | 2019-08-02 07:40 | NUR ---
NURSE NOTES: Received report from MELISA Guthrie. The patient is resting on the bed without acute distress or shortness of breath. The patient is [facility] on ordered setting and communication made by facial expression. The patient is on [facility] on following setting: Port[place] 7, AC 10, TV 500, PEEP 5, FiO2 40% and oxygen saturation is 100%. SR of 69 on the monitor now. Per MELISA Guthrie, the patient had episode of SB with HR of 20s and Dr. Condon discontinued beta-stacy. The patient's G-tube intact and patent and Glucerna 1.2 @65mL/hr running as ordered and no residual noted. The patient has Crow that is intact and patent and draining by gravity. Skin issue noted and dressing changed. ANGELES double lumen PICC line that is intact and patent and running antibiotics per order. Will follow up the order and lab. Will closely monitor the patient. Will continue plan of care. Addendum: 08/02/19 at 1537 by Dieudonne Lau RN The patient's bed in the lowest position, call light in reach, and fall, aspiration, and seizure precaution reinforced.
[2019-08-02 08:00] VITALS: BP 123/67
--- NOTE | 2019-08-02 08:30 | NUR ---
NURSE NOTES: Abnormal lab reported to Dr. Gardner and Dr. Odom. No new order at this time. Will continue plan of care.
[2019-08-02] MEDS: Heparin 5000 units/ml inj SUBQ SCH ×2 (09:00→21:04)
[2019-08-02] MEDS: Docusate 100mg/10ml Liq GT SCH (09:57)
[2019-08-02] MEDS: Glimepiride 4mg tab GT SCH ×2 (09:57→17:56)
[2019-08-02] MEDS: Ferrous Sulfate 300 MG/5 ML UDC GT SCH (09:58)
[2019-08-02] MEDS: levETIRAcetam 500mg/5ml Liquid GT SCH (09:58)
[2019-08-02] MEDS: Ascorbic Acid 500mg tab GT SCH (09:59)
[2019-08-02] MEDS: Lisinopril 20mg tab GT SCH (09:59)
[2019-08-02] MEDS: Topiramate 100mg tab GT SCH ×2 (09:59→17:57)
[2019-08-02] MEDS: Vitamin D 1000 IU Tab GT SCH (09:59)
[2019-08-02] MEDS: metFORMIN 500mg tab ORAL SCH ×2 (10:00→17:57)
[2019-08-02] MEDS: Pantoprazole Inj IVP SCH ×2 (10:00→21:04)
--- NOTE | 2019-08-02 10:00 | NUR ---
NURSE NOTES: Morning medications administered per order. The patient is stable without acute distress or shortness of breath. Will closely monitor the patient. Will continue plan of care.
[2019-08-02] MEDS: Colistin for inhalation INH SCH ×2 (10:15→22:29)
[2019-08-02] MEDS: Vancomycin 750 MG in D5W 275 ML IVPB SCH (10:58)
--- NOTE | 2019-08-02 11:05 | Pulmonolgy Critical Care Note ---
Critical Care - Asmt/Plan Problems: (1) Severe sepsis (2) Severe anemia (3) Nosocomial pneumonia (4) Chronic respiratory failure (5) Cellulitis of right upper extremity (6) Tracheostomy dependence (7) Contracture of joint of multiple sites (8) Diabetes mellitus (9) Vegetative state (10) Cerebrovascular accident (CVA) Respiratory: monitor respiratory rate, adjust FIO2, CXR Cardiac: continue to monitor HR/BP Renal: F/U I&O, keep IV fluid, check electrolytes Gastrointestinal: continue feedings/current rate, abdominal imaging Endocrine: monitor blood sugar Hematologic: transfuse if hgb<8.5 - one unit prbc on 07/30 Prophylaxis: Protonix Time Spent (Minutes): 40 Notes Reviewed: lithographic photographer, renal Discussed with: nurses, consultants, bottle casersenior property manager - Objective Last 24 Hour Vital Signs Date Time Temp Pulse Resp B/P (MAP) Pulse Ox O2 Delivery O2 Flow Rate FiO2 08/02/19 10:39 68 24 100 Mechanical Ventilator 40 80 26 40 08/02/19 09:59 153/75 08/02/19 06:32 92 26 40 08/02/19 05:34 163/76 08/02/19 04:01 160/70 08/02/19 04:00 75 08/02/19 04:00 Mechanical Ventilator 08/02/19 04:00 97.4 66 22 160/70 (100) 100 08/02/19 04:00 40 08/02/19 03:18 91 27 40 08/02/19 00:00 40 08/02/19 00:00 74 08/02/19 00:00 Mechanical Ventilator 08/01/19 23:49 98.0 71 24 142/79 (100) 100 08/01/19 22:11 77 25 100 Mechanical Ventilator 40 79 26 40 08/01/19 21:20 169/75 08/01/19 21:13 169/75 08/01/19 21:12 169/75 08/01/19 20:00 97.8 69 24 169/75 (106) 100 08/01/19 20:00 Mechanical Ventilator 08/01/19 20:00 40 08/01/19 19:38 62 08/01/19 19:10 68 24 40 08/01/19 16:00 Mechanical Ventilator 08/01/19 16:00 40 08/01/19 16:00 98.1 57 27 166/83 (110) 99 08/01/19 16:00 57 08/01/19 15:00 57 22 40 08/01/19 14:17 165/60 08/01/19 12:16 54 08/01/19 12:00 Mechanical Ventilator 08/01/19 12:00 40 08/01/19 11:55 98.2 62 16 176/78 (110) 100 08/01/19 11:42 56 Status: obtunded HEENT: atraumatic Lungs: rales, rhonchi Heart: HR/BP stable Abdomen: soft Extremities: no C/C/E Accucheck: 141 Critical Care - Subjective ROS Limited/Unobtainable: Yes Interval Events: looks comfortable FI02: 40 Vent Support Breath Rate: 10 Vent Support Mode: AC Vent Tidal Volume: 500 Sputum Amount: Moderate PEEP: 5.0 PIP: 29 Tube Feeding Amount: 65 I&O: Intake and Output 08/01/19 08/02/19 19:00 07:00 Intake Total 975 ml 1243 ml Output Total 700 ml 1250 ml Balance 275 ml -7 ml Intake Free Water 250 ml 50 ml IV Total 478 ml Tube Feeding 725 ml 715 ml Output Urine Total 700 ml 1250 ml # Bowel Movements 1 Labs: Laboratory Tests Test 08/02/19 03:30 08/02/19 07:47 White Blood Count 11.0 K/UL (4.8-10.8) H Red Blood Count 3.45 M/UL (4.70-6.10) L Hemoglobin 9.2 G/DL (14.2-18.0) L Hematocrit 28.1 % (42.0-52.0) L Mean Corpuscular Volume 81 FL (80-99) Mean Corpuscular Hemoglobin 26.7 PG (27.0-31.0) L Mean Corpuscular Hemoglobin Concent 32.9 G/DL (32.0-36.0) Red Cell Distribution Width 15.9 % (11.6-14.8) H Platelet Count 245 K/UL (150-450) Mean Platelet Volume 6.9 FL (6.5-10.1) Neutrophils (%) (Auto) 66.1 % (45.0-75.0) Lymphocytes (%) (Auto) 17.7 % (20.0-45.0) L Monocytes (%) (Auto) 9.4 % (1.0-10.0) Eosinophils (%) (Auto) 5.9 % (0.0-3.0) H Basophils (%) (Auto) 0.9 % (0.0-2.0) Sodium Level 146 MMOL/L (136-145) H Potassium Level 3.8 MMOL/L (3.5-5.1) Chloride Level 110 MMOL/L (98-107) H Carbon Dioxide Level 24 MMOL/L (21-32) Anion Gap 12 mmol/L (5-15) Blood Urea Nitrogen 15 mg/dL (7-18) Creatinine 0.8 MG/DL (0.55-1.30) Estimat Glomerular Filtration Rate > 60 mL/min (>60) Glucose Level 147 MG/DL (74-106) H Calcium Level 8.7 MG/DL (8.5-10.1) Arterial Blood pH 7.350 (7.350-7.450) Arterial Blood Partial Pressure CO2 39.3 mmHg (35.0-45.0) Arterial Blood Partial Pressure O2 181.9 mmHg (75.0-100.0) H Arterial Blood HCO3 21.5 mmol/L (22.0-26.0) L Arterial Blood Oxygen Saturation 98.8 % (95-100) Arterial Blood Base Excess -3.7 (-2-2) L Tommy Test Positive Yomi Odom MD Aug 02, 2019 11:05
[2019-08-02 11:30] VITALS: BP 135/77
--- NOTE | 2019-08-02 11:51 | Diagnostic Imaging Report ---
Indication: Shortness of breath Technique: One view of the chest Comparison: 07/27/2019 Findings: Large left pleural effusion, possible hazy mid and lower lung infiltrates and atelectasis persist, unchanged. Right lung pleural space remain clear. Tracheostomy remains the heart remains borderline enlarged. Impression: Unchanged, over 6 days, findings as above.
--- NOTE | 2019-08-02 12:00 | NUR ---
NURSE NOTES: BS of 172 noted. Insulin administered per protocol. Will closely monitor the patient. Will continue plan of care.
--- NOTE | 2019-08-02 13:44 | Surgery Progress Note ---
Surgery Progress Note Subjective Additional Comments cxr unchanged labs noted exam stable and right elbow improved Objective Last 24 Hour Vital Signs Date Time Temp Pulse Resp B/P (MAP) Pulse Ox O2 Delivery O2 Flow Rate FiO2 08/02/19 12:00 58 08/02/19 11:30 97.3 56 20 135/77 (96) 100 08/02/19 10:39 68 24 100 Mechanical Ventilator 40 80 26 40 08/02/19 09:59 153/75 08/02/19 08:00 59 08/02/19 06:32 92 26 40 08/02/19 05:34 163/76 08/02/19 04:01 160/70 08/02/19 04:00 75 08/02/19 04:00 Mechanical Ventilator 08/02/19 04:00 97.4 66 22 160/70 (100) 100 08/02/19 04:00 40 08/02/19 03:18 91 27 40 08/02/19 00:00 40 08/02/19 00:00 74 08/02/19 00:00 Mechanical Ventilator 08/01/19 23:49 98.0 71 24 142/79 (100) 100 08/01/19 22:11 77 25 100 Mechanical Ventilator 40 79 26 40 08/01/19 21:20 169/75 08/01/19 21:13 169/75 08/01/19 21:12 169/75 08/01/19 20:00 97.8 69 24 169/75 (106) 100 08/01/19 20:00 Mechanical Ventilator 08/01/19 20:00 40 08/01/19 19:38 62 08/01/19 19:10 68 24 40 08/01/19 16:00 Mechanical Ventilator 08/01/19 16:00 40 08/01/19 16:00 98.1 57 27 166/83 (110) 99 08/01/19 16:00 57 08/01/19 15:00 57 22 40 08/01/19 14:17 165/60 I&O Intake and Output 08/01/19 08/02/19 19:00 07:00 Intake Total 975 ml 1243 ml Output Total 700 ml 1250 ml Balance 275 ml -7 ml Intake Free Water 250 ml 50 ml IV Total 478 ml Tube Feeding 725 ml 715 ml Output Urine Total 700 ml 1250 ml # Bowel Movements 1 Dressing: other Wound: other Cardiovascular: RSR Respiratory: decreased breath sounds Abdomen: soft, non-tender, present bowel sounds Extremities: no cyanosis Laboratory Tests Test 08/02/19 03:30 08/02/19 07:47 White Blood Count 11.0 K/UL (4.8-10.8) H Red Blood Count 3.45 M/UL (4.70-6.10) L Hemoglobin 9.2 G/DL (14.2-18.0) L Hematocrit 28.1 % (42.0-52.0) L Mean Corpuscular Volume 81 FL (80-99) Mean Corpuscular Hemoglobin 26.7 PG (27.0-31.0) L Mean Corpuscular Hemoglobin Concent 32.9 G/DL (32.0-36.0) Red Cell Distribution Width 15.9 % (11.6-14.8) H Platelet Count 245 K/UL (150-450) Mean Platelet Volume 6.9 FL (6.5-10.1) Neutrophils (%) (Auto) 66.1 % (45.0-75.0) Lymphocytes (%) (Auto) 17.7 % (20.0-45.0) L Monocytes (%) (Auto) 9.4 % (1.0-10.0) Eosinophils (%) (Auto) 5.9 % (0.0-3.0) H Basophils (%) (Auto) 0.9 % (0.0-2.0) Sodium Level 146 MMOL/L (136-145) H Potassium Level 3.8 MMOL/L (3.5-5.1) Chloride Level 110 MMOL/L (98-107) H Carbon Dioxide Level 24 MMOL/L (21-32) Anion Gap 12 mmol/L (5-15) Blood Urea Nitrogen 15 mg/dL (7-18) Creatinine 0.8 MG/DL (0.55-1.30) Estimat Glomerular Filtration Rate > 60 mL/min (>60) Glucose Level 147 MG/DL (74-106) H Calcium Level 8.7 MG/DL (8.5-10.1) Arterial Blood pH 7.350 (7.350-7.450) Arterial Blood Partial Pressure CO2 39.3 mmHg (35.0-45.0) Arterial Blood Partial Pressure O2 181.9 mmHg (75.0-100.0) H Arterial Blood HCO3 21.5 mmol/L (22.0-26.0) L Arterial Blood Oxygen Saturation 98.8 % (95-100) Arterial Blood Base Excess -3.7 (-2-2) L Tommy Test Positive Plan Problems: (1) Cellulitis of right upper extremity Assessment & Plan: This is a 69-year-old male with fevers, leukocytosis, abnormal labs, right elbow cellulitis identified upper extremity. There is significant erythema edema without drainage or fluctuance. The edema is pitting and the right upper extremity does have a contracture at the level of the elbow. With gentle manipulation can slowly begin to straighten the elbow but does have overall limited movement. Plain films identified no fractures noted. No history of fall. No trauma identifiable on examination. Though this could potentially be a infectious process looks inflammatory in nature potentially dependent edema versus venous congestion. Ultrasound upper extremity will be ordered. Pillow to be placed underneath the axilla and to help elevate the elbow. Pillow placed in between the elbow to allow for some decompression. Will monitor skin closely as edema worsening and could breakdown. 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 Historical scar with hyperpigmentation Sacrum . Area of non-blanching erythema also noted at previously injured site. Base of scrotum is erythematous with partial thickness shearing. Generalized Maculopapular red rash noted. Cleanse GT site with Soap and tepid water. Apply Zinc Oxide Paste to GT site Three times daily. Apply Moisture Barrier Paste to Buttocks . Cover with Optifoam drsg. Change every 3 days and prn. Apply Moisture Barrier Paste to Scrotum with each Incontinence care. Reposition at least every 2hours or as tolerated. Off-load heels with Pillow. DAILY ESTIMATED NEEDS: Needs based on DM, critical care 68kg abw 22-28 kcals/kg 5563-0276 total kcals 1.2-2 g protein/kg 81-136 g total protein 25-30 mL/kg 9542-9703 total fluid mLs NUTRITION DIAGNOSIS: 1) Swallowing difficulty r/t respiratory status as evidenced by pt is vent dep via trach, on GT feeds CURRENT TF: Glucerna 1.2 @ 65ml/hr x 20 hrs ENTERAL NUTRITION RECOMMENDATIONS: Glucerna 1.2 @ 65ml/hr x 20 hrs to provide 1300ml, 1560kcal, 78g prot, 1046ml free water - Maintain current TF as ordered - Once in stock, add prosource 1 pack QD for additional 11g prot to better meet est needs - HOB over 30 degrees/ water flush 170ml q 6hrs For continuous run x 24 hrs, rec Glucerna 1.2 @ 55ml/hr x 24 hrs to provide 1320ml, 1584kcal, 79g prot, 1063ml free water ADDITIONAL RECOMMENDATIONS: (1) Per SNF: HT=66" AD=[id number] (June 2019) (2) Monitor lytes closely, replete as needed (low phos) (3) Skin integrity: add Shoaib BID via PEG TF @ goal will provide 100% RDI Jaden Doshi Aug 02, 2019 13:44
--- NOTE | 2019-08-02 14:00 | NUR ---
NURSE NOTES: The patient is stable without acute distress or shortness of breath. Vital signs noted. Tolerating G-tube feeding well. Tolerating vent setting well. Will closely monitor the patient. Will continue plan of care.
[2019-08-02 16:00] VITALS: BP 126/74
--- NOTE | 2019-08-02 16:00 | NUR ---
NURSE NOTES: Bed bath given to the patient. The patient had one time of bowel movement. Skin issue noted and dressing changed. Will closely monitor the patient. Will continue plan of care.
[2019-08-02] MEDS ORDERED: NS 275ml ONE (16:48)
--- NOTE | 2019-08-02 17:12 | NUR ---
CASE MANAGEMENT: REVIEW SI: CELLULITIS RIGHT ARM . SEVERE SEPSIS T 97.3 HR 56 RR 26 BP 162/91 SAT 100% MECH VENT FIO2 40 WBC 11.0 H/H 9.2/28.1 NA 146 CXR -- LARGE LEFT PLEURAL EFFUSION IS: PROTONIX IV Q12HR CEFEPIME IV Q8HR VANCOMYCIN IV Q12HR METFORMIN PO BID NOVOLOG SUBQ Q6HR STEP DOWN UNIT STATUS DCP: PATIENT IS FROM [facility]
--- NOTE | 2019-08-02 17:32 | Infectious Diseases Prog Note ---
Assessment/Plan Assessment/Plan Assessment: Sepsis Probable PNA- COVID19 neg x2 (resident from SNF with large outbreak) -08/01 CXR: Large left pleural effusion, possible hazy mid and lower lung infiltrates and atelectasis persist, unchanged. Right lung pleural space remain clear. -07/26 CXR: Left lung infiltrates and effusion unchanged. -07/25 sp cx MDR ABC (S colistin/polymixin B; suspect colonizer), P. mirabilis, probable AMp-C (S Cefepime, Zosyn, Meropenem) -CXR: Retrocardiac atelectasis with possible tiny left pleural effusion, correlate to exclude pneumonia.Cardiomegaly. Low lung volumes with bronchovascular crowding. -07/24 SARS-Cov2 PCR neg R elbow cellulitis- r/o abscess; improving -CT R elbow: p -xray elbow: : Limited and essentially nondiagnostic. No definite acute abnormality -V. duplex: no DVT -07/24 Bcx NTD Fever; SP Mild leukocytosis, recurrent Probable Scabies, sp rx hx of MSSA,CONS bacteremia 05/2018- suspected 2ry to PICC line Hx of providencia PNA 05/2018 Dm2 HTN CVA/TIA CHF seizure disorder contractures chronic resp failure s/p trach/vent dependant vegetative state 2ry to anoxic brain injury SNF resident (cristian hernández) Plan: -Continue IV Vancomycin #10/03 for cellulitis and pending CT -Cefepime #/ for PNA -if worsening fevers, leukocytosis, switch Cefepime to Polymixin B -07/29 SP Zosyn #6 -07/26 SP Ivermectin and permethrin cream x1 -f/u cx -Monitor CBC/CMP, temperatures -COVID19 neg x2- will dc isolation as afebrile >72hrs and alternate diagnosis ( cellulitis, bacterial PNA) -trach care -wound care -Sx and ortho f/u -f/u CT Thank you for consulting [facility]. Will continue to follow along with you. Discussed with RN Subjective Allergies: Coded Allergies: No Known Allergies (Unverified , 05/27/18) Subjective afebrile >72hrs FIo2 40% mild leukocytosis cellulitis improving Objective Vital Signs Last 24 Hour Vital Signs Date Time Temp Pulse Resp B/P (MAP) Pulse Ox O2 Delivery O2 Flow Rate FiO2 08/02/19 16:00 98.2 69 20 126/74 (91) 100 08/02/19 16:00 Mechanical Ventilator 08/02/19 16:00 40 08/02/19 15:15 78 20 Mechanical Ventilator 40 40 08/02/19 14:43 162/91 08/02/19 12:00 58 08/02/19 12:00 40 08/02/19 12:00 Mechanical Ventilator 08/02/19 11:30 97.3 56 20 135/77 (96) 100 08/02/19 10:39 68 24 100 Mechanical Ventilator 40 80 26 40 08/02/19 09:59 153/75 08/02/19 08:00 Mechanical Ventilator 08/02/19 08:00 59 08/02/19 08:00 98.5 78 20 123/67 (85) 100 08/02/19 08:00 40 08/02/19 06:32 92 26 40 08/02/19 05:34 163/76 08/02/19 04:01 160/70 08/02/19 04:00 75 08/02/19 04:00 Mechanical Ventilator 08/02/19 04:00 97.4 66 22 160/70 (100) 100 08/02/19 04:00 40 08/02/19 03:18 91 27 40 08/02/19 00:00 40 08/02/19 00:00 74 08/02/19 00:00 Mechanical Ventilator 08/01/19 23:49 98.0 71 24 142/79 (100) 100 08/01/19 22:11 77 25 100 Mechanical Ventilator 40 79 26 40 08/01/19 21:20 169/75 08/01/19 21:13 169/75 08/01/19 21:12 169/75 08/01/19 20:00 97.8 69 24 169/75 (106) 100 08/01/19 20:00 Mechanical Ventilator 08/01/19 20:00 40 08/01/19 19:38 62 08/01/19 19:10 68 24 40 Height (Feet): 5 Height (Inches): 8.00 Weight (Pounds): 145 Objective Gen: chornically ill, no distress HEENT: trach in place, EOMI Lungs: no tachypnea, no use of accessory muscles Abd: no distended Ext: R elbow redness and swelling improving Laboratory Tests Test 08/02/19 03:30 08/02/19 07:47 White Blood Count 11.0 K/UL (4.8-10.8) H Red Blood Count 3.45 M/UL (4.70-6.10) L Hemoglobin 9.2 G/DL (14.2-18.0) L Hematocrit 28.1 % (42.0-52.0) L Mean Corpuscular Volume 81 FL (80-99) Mean Corpuscular Hemoglobin 26.7 PG (27.0-31.0) L Mean Corpuscular Hemoglobin Concent 32.9 G/DL (32.0-36.0) Red Cell Distribution Width 15.9 % (11.6-14.8) H Platelet Count 245 K/UL (150-450) Mean Platelet Volume 6.9 FL (6.5-10.1) Neutrophils (%) (Auto) 66.1 % (45.0-75.0) Lymphocytes (%) (Auto) 17.7 % (20.0-45.0) L Monocytes (%) (Auto) 9.4 % (1.0-10.0) Eosinophils (%) (Auto) 5.9 % (0.0-3.0) H Basophils (%) (Auto) 0.9 % (0.0-2.0) Sodium Level 146 MMOL/L (136-145) H Potassium Level 3.8 MMOL/L (3.5-5.1) Chloride Level 110 MMOL/L (98-107) H Carbon Dioxide Level 24 MMOL/L (21-32) Anion Gap 12 mmol/L (5-15) Blood Urea Nitrogen 15 mg/dL (7-18) Creatinine 0.8 MG/DL (0.55-1.30) Estimat Glomerular Filtration Rate > 60 mL/min (>60) Glucose Level 147 MG/DL (74-106) H Calcium Level 8.7 MG/DL (8.5-10.1) Arterial Blood pH 7.350 (7.350-7.450) Arterial Blood Partial Pressure CO2 39.3 mmHg (35.0-45.0) Arterial Blood Partial Pressure O2 181.9 mmHg (75.0-100.0) H Arterial Blood HCO3 21.5 mmol/L (22.0-26.0) L Arterial Blood Oxygen Saturation 98.8 % (95-100) Arterial Blood Base Excess -3.7 (-2-2) L Tommy Test Positive Current Medications Medications (Trade) Dose Ordered Sig/Bhupinder Route PRN Reason Start Time Stop Time Status Last Admin Dose Admin Acetaminophen (Tylenol) 650 mg Q4H PRN GT fever and mild pain 07/26/19 16:30 08/25/19 16:29 07/28/19 15:24 Albuterol Sulfate (Proventil MDI) 2 puff Q3H PRN INH Shortness of Breath 07/26/19 16:30 10/24/19 16:29 Ascorbic Acid (Vitamin C) 500 mg DAILY GT 07/27/19 09:00 08/26/19 08:59 08/02/19 09:59 Atorvastatin Calcium (Lipitor) 10 mg BEDTIME GT 07/26/19 21:00 10/24/19 20:59 08/01/19 21:12 Cefepime HCl 1 gm/ Dextrose 55 ml @ 110 mls/hr EVERY 8 HOURS IVPB 07/30/19 22:00 08/06/19 21:59 08/02/19 14:43 Chlorhexidine Gluconate (Jasmin-Hex 2%) 1 applic DAILY@2000 TOPIC 07/26/19 20:00 10/24/19 19:59 08/01/19 21:11 Colistimethate Sodium (Colistin *inhalation use only*) 75 mg Q12HR@10,22 INH 08/01/19 10:30 08/08/19 10:29 08/02/19 10:15 Dextrose (Dextrose 50%) 25 ml Q30M PRN IV Hypoglycemia 07/26/19 16:30 10/24/19 16:29 Dextrose (Dextrose 50%) 50 ml Q30M PRN IV Hypoglycemia 07/26/19 16:30 10/24/19 16:29 Docusate Sodium (Colace) 100 mg DAILY GT 07/27/19 09:00 08/26/19 08:59 08/02/19 09:57 Ferrous Sulfate (Feosol) 325 mg DAILY GT 07/27/19 09:00 10/25/19 08:59 08/02/19 09:58 Glimepiride (AmaryL) 4 mg BID GT 07/26/19 18:00 08/25/19 17:59 08/02/19 09:57 Heparin Sodium (Porcine) (Heparin 5000 units/ml) 5,000 units EVERY 12 HOURS SUBQ 07/26/19 09:00 09/09/19 08:59 08/01/19 21:11 Hydralazine HCl (Apresoline) 25 mg Q6H PRN ORAL SBP above 150 08/01/19 02:45 10/30/19 02:44 08/02/19 04:01 Hydralazine HCl (Apresoline) 100 mg EVERY 8 HOURS GT 07/30/19 06:00 10/24/19 21:59 08/02/19 14:43 Insulin Aspart (NovoLOG) Q6HR SUBQ 07/26/19 18:00 10/24/19 16:29 08/02/19 11:44 Levetiracetam (Keppra) 1,500 mg DAILY GT 07/27/19 09:00 08/26/19 08:59 08/02/19 09:58 Lisinopril (PriniviL) 40 mg DAILY GT 07/27/19 09:00 08/26/19 08:59 08/02/19 09:59 Metformin HCl (Glucophage) 1,000 mg BID ORAL 07/26/19 18:00 08/25/19 17:59 08/02/19 10:00 Ondansetron HCl (Zofran) 4 mg Q4H PRN GT Nausea & Vomiting 07/26/19 16:30 08/25/19 16:29 Pantoprazole (Protonix) 40 mg EVERY 12 HOURS IVP 07/26/19 09:00 08/25/19 08:59 08/02/19 10:00 Potassium Chloride (K-Dur) 40 meq TWICE A DAY GT 07/27/19 18:00 10/25/19 17:59 08/02/19 09:58 Sodium Chloride 1,000 ml @ 100 mls/hr Q10H ONCE IV 08/02/19 11:00 08/02/19 20:59 08/02/19 11:04 Topiramate (Topamax) 200 mg BID GT 07/26/19 18:00 08/25/19 17:59 08/02/19 09:59 Vancomycin HCl (Vanco pharmacy to dose) 1 ea DAILY PRN MISC rx protocol 07/31/19 15:15 08/30/19 15:14 Vancomycin HCl 750 mg/Dextrose 275 ml @ 184 mls/hr Q12H IVPB 07/31/19 11:00 08/05/19 10:59 08/02/19 10:58 Vitamin D (Vitamin D) 5,000 intlu DAILY GT 07/26/19 09:00 08/25/19 08:59 08/02/19 09:59 Zinc Oxide (Zinc Oxide) 1 applic THREE TIMES A DAY PRN TOPIC REDNESS 07/26/19 12:45 10/24/19 12:44 Consuelo Zambrano M.D. Aug 02, 2019 17:32
--- NOTE | 2019-08-02 18:00 | NUR ---
NURSE NOTES: BS of 118 noted. No insulin coverage based on the protocol. Will continue plan of care.
--- NOTE | 2019-08-02 18:20 | NUR ---
NURSE NOTES: Dr. Weaver at the bedside assessed the patient. Dr. Weaver was notified regarding abnormal lab. No new order at this time. Per Dr. Weaver, the patient is to be observed for the heart rate due to bradycardia episode with lowest HR of 29 and maybe discharged on 08/04/2019. Will endorse to the night nurse. Will continue plan of care.
--- NOTE | 2019-08-02 19:18 | NUR ---
RESPIRATORY NOTE: Received pt on AC 10, 500VT, 40%, PEEP +5. Pt is trach-dependent w/ a cuffed, Portex 7 tube. Pt obtunded. B/S villa. rhonchi, sxn small to moderate amounts of thick, pale-yellow to rodriguez-brown secretions w/ occasional blood clots. Vent plugged into red outlet, ambubag at bedside. Pt in no apparent distress at this time. Will continue plan of care.
--- NOTE | 2019-08-02 19:20 | NUR ---
HAND-OFF: Report given to MELISA Guthrie and MELISA Baker. The patient is stable at this time. Endorsed plan of care.
--- NOTE | 2019-08-02 19:40 | NUR ---
NURSE NOTES: Received report from Chloé VINCENT, pt. in bed obtunded- eyes open- no tracking noted, no signs or symptoms of acute cardiac or respiratory distress noted, bed alarm on, side rails up x's 3 and safety brakes engaged, side rails padded for seizure precautions- no seizure activity noted- upon assessment, pt. appears to be tolerating current vent settings well- AC 10, TV 500, peep 5, and fio2 at 40%- no distress noted, pt. appears to be tolerating current Feeding G tube feeding Glucerna 1.2 at 65cc/hr- no residual noted, pt. appears to be resting comfortably, ANGELES double lumen picc intact and patent- running 1/2 NS at 100mL/hr, safety measures continued, will continue with plan of care. Addendum: 08/02/19 at 1947 by Gatito Ingram RN Mignon intact, drain to gravity
[2019-08-02 20:00] VITALS: BP 175/75
[2019-08-02] MEDS: Dyna-Hex 2% Top Sol 2oz TOPIC SCH (21:03)
--- NOTE | 2019-08-02 21:30 | Progress Note ---
DATE: 08/02/2019 SUBJECTIVE: Patient's condition has markedly improved. The swelling, the redness, and of the forearm are substantially improved with current IV antibiotics. PHYSICAL EXAMINATION: VITAL SIGNS: Blood pressure is 126/74, his pulse is 69, respirations 20, temperature 98.2. HEENT: Eyes were normal. ENT, mucous membranes were moist and intact. NECK: Supple with no JVD without lymph nodes. Tracheostomy site is clean. LUNGS: Clear without rhonchi, rales, or wheezing. HEART: Normal sounds with regular beats. There is bradycardia at rest. Yesterday, it was borderline bradycardia, however, the patient was on metoprolol and metoprolol was discontinued. His heart rate increased now to above 60. Prior to that, patient has heart rate between 57 to 29. LABORATORY DATA: His hemoglobin is 9.2, hematocrit 28.1, MCV of 81, WBC of 11.0, and platelets of 245. His BUN and creatinine is 15 and 0.8 respectively. Sodium is 146, potassium 3.8, chloride 110, CO2 is 24. His ABG, pH is 7.35, his pCO2 39, his pO2 is 181, bicarb is 21, O2 saturation is 98. His chest x-ray today shows large left pleural effusion and left lower lobe infiltrate or atelectasis. Patient was ready to be discharged today. However, because of the arrhythmia patient will remain under observation without beta-stacy. For the next 24 hours if no more tachycardia will appear, patient will be discharged Friday morning. Janette Weaver M.D. DR: ALMA JOB#: [id number] CC:
[2019-08-02 22:00] VITALS: BP 142/69
[2019-08-03] VITALS (8 sets, daily range): BP systolic 129–176; BP diastolic 67–97
[2019-08-03] MEDS: Vancomycin 500mg/D5W 110ml IVPB SCH ×6 (00:17→23:02)
[2019-08-03] MEDS: HydrALAZINE 25mg tab ORAL PRN (00:54)
--- NOTE | 2019-08-03 05:00 | Progress Note ---
DATE: 08/02/2019 CARDIOLOGY PROGRESS NOTE SUBJECTIVE: The patient is on ventilator support. Episodes of arrhythmias persists. He has had bradycardic episodes, but asymptomatic with no associated blood pressure compromise. PHYSICAL EXAMINATION: LUNGS: Bilateral breath sounds. Rhonchi. HEART: Regular rhythm and rate. Normal S1, S2. ABDOMEN: Soft. EXTREMITIES: Trace edema. IMPRESSION: 1. Chronic vegetative state. 2. Second-degree type 1 AV block. 3. Conduction system disease. 4. Chronic diastolic congestive heart failure. 5. Hypertensive heart disease with labile blood pressure. PLAN: 1. Beta-stacy was discontinued yesterday. 2. Continue to observe. 3. The patient is not a candidate for pacemaker. 4. Other antihypertensives without any negative chronotropic potential can be advanced for additional blood pressure control as needed. Otto Condon M.D. DR: HAY JOB#: [id number] CC:
[2019-08-03] MEDS: HydrALAZINE 50mg tab GT SCH ×3 (05:06→21:16)
[2019-08-03] MEDS: Cefepime HCl 1 GM in D5W 55 ML IVPB SCH ×3 (05:06→21:17)
[2019-08-03] MEDS: Acetaminophen 650mg/20.3ml GT PRN (05:08)
[2019-08-03] MEDS: NovoLOG Insulin Flexpen SUBQ SCH ×5 (05:10→23:01)
--- NOTE | 2019-08-03 07:27 | NUR ---
HAND-OFF: Report given to Cinthia VINCENT. Patient remains stable. Nurse aware of F/U on any abnormal AM labs and f/u upper extremity CT.
--- NOTE | 2019-08-03 07:27 | NUR ---
NURSE NOTES: Received report from Chas RN. Patient stable upon assessment. Tolerating feeding and vent settings well. Crow intact. Will continue to monitor.
[2019-08-03] MEDS: Pantoprazole Inj IVP SCH ×2 (09:00→20:42)
[2019-08-03] MEDS: Docusate 100mg/10ml Liq GT SCH ×2 (09:00→09:01)
[2019-08-03] MEDS: Ferrous Sulfate 300 MG/5 ML UDC GT SCH (09:01)
[2019-08-03] MEDS: levETIRAcetam 500mg/5ml Liquid GT SCH (09:02)
[2019-08-03] MEDS: metFORMIN 500mg tab ORAL SCH ×2 (09:02→17:19)
[2019-08-03] MEDS: Topiramate 100mg tab GT SCH ×2 (09:05→17:21)
[2019-08-03] MEDS: Ascorbic Acid 500mg tab GT SCH (09:05)
[2019-08-03] MEDS: Lisinopril 20mg tab GT SCH (09:05)
[2019-08-03] MEDS: Heparin 5000 units/ml inj SUBQ SCH ×2 (09:06→20:43)
[2019-08-03] MEDS: Vitamin D 1000 IU Tab GT SCH (09:06)
[2019-08-03] MEDS: Glimepiride 4mg tab GT SCH ×2 (09:07→17:18)
[2019-08-03] MEDS: Colistin for inhalation INH SCH ×2 (11:14→22:00)
--- NOTE | 2019-08-03 11:47 | Pulmonolgy Critical Care Note ---
Critical Care - Asmt/Plan Problems: (1) Severe sepsis (2) Chronic respiratory failure (3) Severe anemia (4) Nosocomial pneumonia (5) Cellulitis of right upper extremity (6) Tracheostomy dependence (7) Contracture of joint of multiple sites (8) Diabetes mellitus (9) Vegetative state (10) Cerebrovascular accident (CVA) Respiratory: adjust tidal volume, monitor respiratory rate, adjust FIO2, CXR Cardiac: continue pressors, continue to monitor HR/BP Renal: F/U I&O, check electrolytes Infectious Disease: check cultures, continue antibiotics Gastrointestinal: continue feedings/current rate Endocrine: monitor blood sugar Hematologic: monitor H/H, transfuse if hgb<8.5 Neurologic: PRN Ativan, PRN Morphine, keep patient comfortable Affect: PRN ativan Time Spent (Minutes): 40 Notes Reviewed: e commerce developer, cardio, renal Discussed with: nurses, consultants, case resource managerfield project manager - Objective Last 24 Hour Vital Signs Date Time Temp Pulse Resp B/P (MAP) Pulse Ox O2 Delivery O2 Flow Rate FiO2 08/03/19 11:10 54 18 100 Mechanical Ventilator 40 58 19 40 08/03/19 09:05 181/79 08/03/19 09:00 40 08/03/19 08:30 57 08/03/19 08:00 98.1 62 19 176/79 (111) 98 08/03/19 08:00 82 08/03/19 08:00 Mechanical Ventilator 40.0 08/03/19 07:12 62 19 40 08/03/19 06:17 98.4 08/03/19 06:04 58 22 129/68 (88) 97 08/03/19 05:38 98.4 08/03/19 05:06 165/97 08/03/19 04:00 Mechanical Ventilator 08/03/19 04:00 40 08/03/19 04:00 99.5 53 17 165/97 (119) 100 08/03/19 03:35 61 21 40 08/03/19 03:30 63 08/03/19 02:31 63 22 145/67 (93) 96 08/03/19 00:54 173/82 08/03/19 00:00 98.6 66 24 173/82 (112) 100 08/03/19 00:00 40 08/03/19 00:00 Mechanical Ventilator 08/02/19 23:30 63 08/02/19 22:45 63 22 100 Mechanical Ventilator 40 08/02/19 22:30 67 22 Mechanical Ventilator 40 40 08/02/19 22:00 142/69 (93) 08/02/19 21:06 175/75 08/02/19 20:00 Mechanical Ventilator 08/02/19 20:00 98.6 66 24 175/75 (108) 100 08/02/19 20:00 40 08/02/19 19:15 69 24 40 08/02/19 19:13 64 08/02/19 18:00 Mechanical Ventilator 08/02/19 16:00 59 08/02/19 16:00 98.2 69 20 126/74 (91) 100 08/02/19 16:00 Mechanical Ventilator 08/02/19 16:00 40 08/02/19 15:15 78 20 Mechanical Ventilator 40 40 08/02/19 14:43 162/91 08/02/19 12:00 58 08/02/19 12:00 40 08/02/19 12:00 Mechanical Ventilator Status: awake Condition: critical HEENT: atraumatic Lungs: chest wall tender Heart: HR/BP stable Abdomen: soft, non-tender Extremities: no C/C/E Accucheck: 128 Critical Care - Subjective ROS Limited/Unobtainable: Yes Condition: critical FI02: 40 Vent Support Breath Rate: 10 Vent Support Mode: AC Vent Tidal Volume: 500 Sputum Amount: Scant PEEP: 5.0 PIP: 27 Tube Feeding Amount: 65 I&O: Intake and Output 08/02/19 08/03/19 19:00 07:00 Intake Total 1815 ml 1220 ml Output Total 1500 ml 1100 ml Balance 315 ml 120 ml Intake Free Water 100 ml 30 ml IV Total 1130 ml 475 ml Tube Feeding 585 ml 715 ml Output Urine Total 1500 ml 1100 ml # Bowel Movements 2 Labs: Laboratory Tests Test 08/02/19 22:20 Vancomycin Level Trough 17.4 ug/mL (5.0-12.0) Yomi Zaragoza MD Aug 03, 2019 11:47
--- NOTE | 2019-08-03 12:47 | Infectious Diseases Prog Note ---
Assessment/Plan Assessment/Plan Assessment: Sepsis Probable PNA- COVID19 neg x2 (resident from SNF with large outbreak) -08/01 CXR: Large left pleural effusion, possible hazy mid and lower lung infiltrates and atelectasis persist, unchanged. Right lung pleural space remain clear. -07/26 CXR: Left lung infiltrates and effusion unchanged. -07/25 sp cx MDR ABC (S colistin/polymixin B; suspect colonizer), P. mirabilis, probable AMp-C (S Cefepime, Zosyn, Meropenem) -CXR: Retrocardiac atelectasis with possible tiny left pleural effusion, correlate to exclude pneumonia.Cardiomegaly. Low lung volumes with bronchovascular crowding. -07/24 SARS-Cov2 PCR neg R elbow cellulitis- r/o abscess; improving -CT R elbow: p -xray elbow: : Limited and essentially nondiagnostic. No definite acute abnormality -V. duplex: no DVT -07/24 Bcx NTD Fever; SP Mild leukocytosis, recurrent Probable Scabies, sp rx hx of MSSA,CONS bacteremia 05/2018- suspected 2ry to PICC line Hx of providencia PNA 05/2018 Dm2 HTN CVA/TIA CHF seizure disorder contractures chronic resp failure s/p trach/vent dependant vegetative state 2ry to anoxic brain injury SNF resident (cristian hern[facility]dez) Plan: -Continue IV Vancomycin #/-14 for cellulitis and pending CT -Cefepime #/ for PNA -INH colistin #3/7 -if worsening fevers, leukocytosis, switch Cefepime to Polymixin B -07/29 SP Zosyn #6 -07/26 SP Ivermectin and permethrin cream x1 -f/u cx -Monitor CBC/CMP, temperatures -COVID19 neg x2- dc isolation as afebrile >72hrs and alternate diagnosis ( cellulitis, bacterial PNA) -trach care -wound care -Sx and ortho f/u -f/u CT Thank you for consulting [facility]. Will continue to follow along with you. Discussed with RN Subjective Allergies: Coded Allergies: No Known Allergies (Unverified , 05/27/18) Subjective afebrile mild leukocytosis cellulitis improving Objective Vital Signs Last 24 Hour Vital Signs Date Time Temp Pulse Resp B/P (MAP) Pulse Ox O2 Delivery O2 Flow Rate FiO2 08/03/19 11:10 54 18 100 Mechanical Ventilator 40 58 19 40 08/03/19 09:05 181/79 08/03/19 09:00 40 08/03/19 08:30 57 08/03/19 08:00 98.1 62 19 176/79 (111) 98 08/03/19 08:00 82 08/03/19 08:00 Mechanical Ventilator 40.0 08/03/19 07:12 62 19 40 08/03/19 06:17 98.4 08/03/19 06:04 58 22 129/68 (88) 97 08/03/19 05:38 98.4 08/03/19 05:06 165/97 08/03/19 04:00 Mechanical Ventilator 08/03/19 04:00 40 08/03/19 04:00 99.5 53 17 165/97 (119) 100 08/03/19 03:35 61 21 40 08/03/19 03:30 63 08/03/19 02:31 63 22 145/67 (93) 96 08/03/19 00:54 173/82 08/03/19 00:00 98.6 66 24 173/82 (112) 100 08/03/19 00:00 40 08/03/19 00:00 Mechanical Ventilator 08/02/19 23:30 63 08/02/19 22:45 63 22 100 Mechanical Ventilator 40 08/02/19 22:30 67 22 Mechanical Ventilator 40 40 08/02/19 22:00 142/69 (93) 08/02/19 21:06 175/75 08/02/19 20:00 Mechanical Ventilator 08/02/19 20:00 98.6 66 24 175/75 (108) 100 08/02/19 20:00 40 08/02/19 19:15 69 24 40 08/02/19 19:13 64 08/02/19 18:00 Mechanical Ventilator 08/02/19 16:00 59 08/02/19 16:00 98.2 69 20 126/74 (91) 100 08/02/19 16:00 Mechanical Ventilator 08/02/19 16:00 40 08/02/19 15:15 78 20 Mechanical Ventilator 40 40 08/02/19 14:43 162/91 Height (Feet): 5 Height (Inches): 8.00 Weight (Pounds): 145 Objective Gen: chornically ill, no distress HEENT: trach in place, EOMI Lungs: no tachypnea, no use of accessory muscles Abd: no distended Ext: R elbow redness and swelling improving Laboratory Tests Test 08/02/19 22:20 Vancomycin Level Trough 17.4 ug/mL (5.0-12.0) H Current Medications Medications (Trade) Dose Ordered Sig/Bhupinder Route PRN Reason Start Time Stop Time Status Last Admin Dose Admin Acetaminophen (Tylenol) 650 mg Q4H PRN GT fever and mild pain 07/26/19 16:30 08/25/19 16:29 08/03/19 05:08 Albuterol Sulfate (Proventil MDI) 2 puff Q3H PRN INH Shortness of Breath 07/26/19 16:30 10/24/19 16:29 Ascorbic Acid (Vitamin C) 500 mg DAILY GT 07/27/19 09:00 08/26/19 08:59 08/03/19 09:05 Atorvastatin Calcium (Lipitor) 10 mg BEDTIME GT 07/26/19 21:00 10/24/19 20:59 08/02/19 21:06 Cefepime HCl 1 gm/ Dextrose 55 ml @ 110 mls/hr EVERY 8 HOURS IVPB 07/30/19 22:00 08/06/19 21:59 08/03/19 05:06 Chlorhexidine Gluconate (Jasmin-Hex 2%) 1 applic DAILY@2000 TOPIC 07/26/19 20:00 10/24/19 19:59 08/02/19 21:03 Colistimethate Sodium (Colistin *inhalation use only*) 75 mg Q12HR@10,22 INH 08/01/19 10:30 08/08/19 10:29 08/03/19 11:14 Dextrose (Dextrose 50%) 25 ml Q30M PRN IV Hypoglycemia 07/26/19 16:30 10/24/19 16:29 Dextrose (Dextrose 50%) 50 ml Q30M PRN IV Hypoglycemia 07/26/19 16:30 10/24/19 16:29 Docusate Sodium (Colace) 100 mg DAILY GT 07/27/19 09:00 08/26/19 08:59 08/02/19 09:57 Ferrous Sulfate (Feosol) 325 mg DAILY GT 07/27/19 09:00 10/25/19 08:59 08/03/19 09:01 Glimepiride (AmaryL) 4 mg BID GT 07/26/19 18:00 08/25/19 17:59 08/03/19 09:07 Heparin Sodium (Porcine) (Heparin 5000 units/ml) 5,000 units EVERY 12 HOURS SUBQ 07/26/19 09:00 09/09/19 08:59 08/03/19 09:06 Hydralazine HCl (Apresoline) 25 mg Q6H PRN ORAL SBP above 150 08/01/19 02:45 10/30/19 02:44 08/03/19 00:54 Hydralazine HCl (Apresoline) 100 mg EVERY 8 HOURS GT 07/30/19 06:00 10/24/19 21:59 08/03/19 05:06 Insulin Aspart (NovoLOG) Q6HR SUBQ 07/26/19 18:00 10/24/19 16:29 08/02/19 11:44 Levetiracetam (Keppra) 1,500 mg DAILY GT 07/27/19 09:00 08/26/19 08:59 08/03/19 09:02 Lisinopril (PriniviL) 40 mg DAILY GT 07/27/19 09:00 08/26/19 08:59 08/03/19 09:05 Metformin HCl (Glucophage) 1,000 mg BID ORAL 07/26/19 18:00 08/25/19 17:59 08/03/19 09:02 Ondansetron HCl (Zofran) 4 mg Q4H PRN GT Nausea & Vomiting 07/26/19 16:30 08/25/19 16:29 Pantoprazole (Protonix) 40 mg EVERY 12 HOURS IVP 07/26/19 09:00 08/25/19 08:59 08/03/19 09:00 Potassium Chloride (K-Dur) 40 meq TWICE A DAY GT 07/27/19 18:00 10/25/19 17:59 08/03/19 09:02 Topiramate (Topamax) 200 mg BID GT 07/26/19 18:00 08/25/19 17:59 08/03/19 09:05 Vancomycin HCl (Vanco pharmacy to dose) 1 ea DAILY PRN MISC rx protocol 07/31/19 15:15 08/30/19 15:14 Vancomycin HCl 500 mg/Dextrose 110 ml @ 110 mls/hr Q12H IVPB 08/03/19 00:00 08/08/19 00:00 08/03/19 00:17 Vitamin D (Vitamin D) 5,000 intlu DAILY GT 07/26/19 09:00 08/25/19 08:59 08/03/19 09:06 Zinc Oxide (Zinc Oxide) 1 applic THREE TIMES A DAY PRN TOPIC REDNESS 07/26/19 12:45 10/24/19 12:44 Consuelo Zambrano M.D. Aug 03, 2019 12:47
--- NOTE | 2019-08-03 16:50 | Surgery Progress Note ---
Surgery Progress Note Subjective Additional Comments theo cute events labs noted eaxm stable cellulitis improved Objective Last 24 Hour Vital Signs Date Time Temp Pulse Resp B/P (MAP) Pulse Ox O2 Delivery O2 Flow Rate FiO2 08/03/19 16:00 40 08/03/19 16:00 40 08/03/19 16:00 Mechanical Ventilator 30.0 08/03/19 16:00 Mechanical Ventilator 30.0 08/03/19 15:42 53 08/03/19 14:56 59 19 40 08/03/19 13:15 164/76 08/03/19 12:00 40 08/03/19 12:00 98.4 62 21 165/76 (105) 98 08/03/19 12:00 Mechanical Ventilator 40.0 08/03/19 11:53 90 08/03/19 11:10 54 18 100 Mechanical Ventilator 40 58 19 40 08/03/19 09:05 181/79 08/03/19 09:00 40 08/03/19 08:30 57 08/03/19 08:00 98.1 62 19 176/79 (111) 98 08/03/19 08:00 82 08/03/19 08:00 Mechanical Ventilator 40.0 08/03/19 07:12 62 19 40 08/03/19 06:17 98.4 08/03/19 06:04 58 22 129/68 (88) 97 08/03/19 05:38 98.4 08/03/19 05:06 165/97 08/03/19 04:00 Mechanical Ventilator 08/03/19 04:00 40 08/03/19 04:00 99.5 53 17 165/97 (119) 100 08/03/19 03:35 61 21 40 08/03/19 03:30 63 08/03/19 02:31 63 22 145/67 (93) 96 08/03/19 00:54 173/82 08/03/19 00:00 98.6 66 24 173/82 (112) 100 08/03/19 00:00 40 08/03/19 00:00 Mechanical Ventilator 08/02/19 23:30 63 08/02/19 22:45 63 22 100 Mechanical Ventilator 40 08/02/19 22:30 67 22 Mechanical Ventilator 40 40 08/02/19 22:00 142/69 (93) 08/02/19 21:06 175/75 6/8/20 20:00 Mechanical Ventilator 08/02/19 20:00 98.6 66 24 175/75 (108) 100 08/02/19 20:00 40 08/02/19 19:15 69 24 40 08/02/19 19:13 64 08/02/19 18:00 Mechanical Ventilator I&O Intake and Output 08/02/19 08/03/19 19:00 07:00 Intake Total 1815 ml 1220 ml Output Total 1500 ml 1100 ml Balance 315 ml 120 ml Intake Free Water 100 ml 30 ml IV Total 1130 ml 475 ml Tube Feeding 585 ml 715 ml Output Urine Total 1500 ml 1100 ml # Bowel Movements 2 Dressing: other Wound: other Drains: other Cardiovascular: RSR Respiratory: decreased breath sounds Abdomen: soft, present bowel sounds Extremities: no cyanosis Laboratory Tests Test 08/02/19 22:20 Vancomycin Level Trough 17.4 ug/mL (5.0-12.0) H Plan Problems: (1) Cellulitis of right upper extremity Assessment & Plan: This is a 69-year-old male with fevers, leukocytosis, abnormal labs, right elbow cellulitis identified upper extremity. There is significant erythema edema without drainage or fluctuance. The edema is pitting and the right upper extremity does have a contracture at the level of the elbow. With gentle manipulation can slowly begin to straighten the elbow but does have overall limited movement. Plain films identified no fractures noted. No history of fall. No trauma identifiable on examination. Though this could potentially be a infectious process looks inflammatory in nature potentially dependent edema versus venous congestion. Ultrasound upper extremity will be ordered. Pillow to be placed underneath the axilla and to help elevate the elbow. Pillow placed in between the elbow to allow for some decompression. Will monitor skin closely as edema worsening and could breakdown. 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 Historical scar with hyperpigmentation Sacrum . Area of non-blanching erythema also noted at previously injured site. Base of scrotum is erythematous with partial thickness shearing. Generalized Maculopapular red rash noted. Cleanse GT site with Soap and tepid water. Apply Zinc Oxide Paste to GT site Three times daily. Apply Moisture Barrier Paste to Buttocks . Cover with Optifoam drsg. Change every 3 days and prn. Apply Moisture Barrier Paste to Scrotum with each Incontinence care. Reposition at least every 2hours or as tolerated. Off-load heels with Pillow. DAILY ESTIMATED NEEDS: Needs based on DM, critical care 68kg abw 22-28 kcals/kg 2240-8995 total kcals 1.2-2 g protein/kg 81-136 g total protein 25-30 mL/kg 3289-1166 total fluid mLs NUTRITION DIAGNOSIS: 1) Swallowing difficulty r/t respiratory status as evidenced by pt is vent dep via trach, on GT feeds CURRENT TF: Glucerna 1.2 @ 65ml/hr x 20 hrs ENTERAL NUTRITION RECOMMENDATIONS: Glucerna 1.2 @ 65ml/hr x 20 hrs to provide 1300ml, 1560kcal, 78g prot, 1046ml free water - Maintain current TF as ordered - Once in stock, add prosource 1 pack QD for additional 11g prot to better meet est needs - HOB over 30 degrees/ water flush 170ml q 6hrs For continuous run x 24 hrs, rec Glucerna 1.2 @ 55ml/hr x 24 hrs to provide 1320ml, 1584kcal, 79g prot, 1063ml free water ADDITIONAL RECOMMENDATIONS: (1) Per SNF: HT=66" [id number] (June 2019) (2) Monitor lytes closely, replete as needed (low phos) (3) Skin integrity: add Shoaib BID via PEG TF @ goal will provide 100% RDI Jaden Doshi Aug 03, 2019 16:50
--- NOTE | 2019-08-03 17:41 | NUR ---
CASE MANAGEMENT: REVIEW SI: CELLULITIS RIGHT ARM . SEVERE SEPSIS T 99.5 HR 53 RR 17 BP 165/97 SAT 100% MECH VENT FIO2 40 CT RIGHT ARM PENDING R/O ABSCESS IS: PROTONIX IV Q12HR CEFEPIME IV Q8HR VANCOMYCIN IV Q12HR METFORMIN PO BID NOVOLOG SUBQ Q6HR STEP DOWN UNIT STATUS DCP: PATIENT IS FROM [facility]
--- NOTE | 2019-08-03 18:00 | NUR ---
NURSE NOTES: Patient in stable condition and tolerating vent settings well. All due meds given. No adverse reactions noted. Dr. Weaver and Dr. Condon at nurses station. Ordered discharge for 08/04/2019.
--- NOTE | 2019-08-03 19:21 | NUR ---
6NURSE NOTES: Received report from MELISA Vicente, pt. in bed obtunded- eyes open- no tracking noted, no signs or symptoms of acute cardiac or respiratory distress noted, bed alarm on, bed in lowest position, call light within easy reach, side rails up x's 3 and safety brakes engaged, side rails padded for seizure precautions- no seizure activity noted- upon assessment, pt. appears to be tolerating current vent settings well- AC 10, TV 500, peep 5, and fio2 at 40%- no distress noted, pt. appears to be tolerating current Feeding G tube feeding Glucerna 1.2 at 65cc/hr- no residual noted, pt. appears to be resting comfortably, ANGELES picc intact and patent- TKO, safety measures continued, will continue with plan of care.
--- NOTE | 2019-08-03 19:30 | NUR ---
HAND-OFF: Report given to martine love.
[2019-08-03] MEDS ORDERED: NS 275ml ONE (20:16)
[2019-08-03] MEDS ORDERED: Tubing IV Secondary IV ONE (20:16)
[2019-08-03] MEDS: Dyna-Hex 2% Top Sol 2oz TOPIC SCH (20:42)
--- NOTE | 2019-08-03 22:00 | Progress Note ---
DATE: 08/03/2019 SUBJECTIVE: The patient is afebrile and hemodynamically stable. PHYSICAL EXAMINATION: VITAL SIGNS: Blood pressure 159/83, his pulse is 62, respirations are 14, temperature 97.9. HEENT: Eyes were normal. ENT, mucous membranes were moist and intact. NECK: Supple with no JVD without lymph nodes. Tracheostomy site is clean. LUNGS: Clear without rhonchi, rales, or wheezing. HEART: Normal sounds with regular beats. There is no bradycardia at rest. ABDOMEN: Soft, nontender with normal bowel sounds. Gastrostomy site is clean. EXTREMITIES: Warm without cyanosis, clubbing, or edema. The right elbow has further improvement in swelling, tenderness, warmth, and size. Patient was scheduled to undergo a CT scan of the elbow without contrast, however, because as patient developed bradycardia up to 29 per minute, risk for patient and he will be disconnected from monitoring device. Patient's general condition continued to improve. He is afebrile. His heart rate is actually now 66. CT scan will be canceled. Patient will be continued on his IV antibiotic. patient can be discharged in the a.m. back to the extended care facility. Janette Weaver M.D. DR: ALMA JOB#: [id number] CC:
[2019-08-04] VITALS (9 sets, daily range): BP systolic 143–181; BP diastolic 68–79
[2019-08-04] MEDS: HydrALAZINE 25mg tab ORAL PRN ×2 (01:10→09:04)
[2019-08-04] MEDS: NovoLOG Insulin Flexpen SUBQ SCH ×4 (05:03→23:25)
[2019-08-04] MEDS: HydrALAZINE 50mg tab GT SCH ×3 (05:11→21:27)
[2019-08-04] MEDS: Cefepime HCl 1 GM in D5W 55 ML IVPB SCH ×3 (05:11→21:26)
--- NOTE | 2019-08-04 05:45 | Progress Note ---
DATE: 08/03/2019 CARDIOLOGY PROGRESS NOTE SUBJECTIVE: The patient has had bradycardic episodes. Beta-stacy therapy was discontinued yesterday. OBJECTIVE: VITAL SIGNS: Blood pressure 159/83, heart rate 62, respiratory rate 14. LUNGS: Thin secretions from trach site. Bilateral breath sounds with no wheezing or rales. CARDIAC: Regular rhythm. Slow rate. Normal S1 and S2. ABDOMEN: Soft. G-tube site intact. EXTREMITIES: Erythema and warmth of the right elbow are decreasing. There is no edema of the extremities. IMPRESSION: 1. Respiratory failure. 2. Cellulitis. 3. Bradyarrhythmias. 4. 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 5. Dehydration. 6. Transient second degree, Type I, AV block. PLAN: 1. The patient is now off all drugs with negative chronotropic potential. 2. The patient remains on ventilator support. 3. The patient remains on antimicrobials and skin care. 4. A CAT scan has been canceled as the patient is not safely be transferred off the monitor at this time. We will observe for further improvement and heart rates as beta-stacy dosing continues to leave the system. 5. We will reassess Topamax therapy if any associated bradycardia is noted in the literature. Otto Condon M.D. DR: GLENNA JOB#: [id number] CC: MILADIS
[2019-08-04 06:11] LABS: BASOPHILS % (AUTO) 1.1 % (0.0-2.0); EOSINOPHILS % (AUTO) 7.3 % (0.0-3.0); HEMATOCRIT 26.6 % (42.0-52.0); HEMOGLOBIN 8.8 G/DL (14.2-18.0); LYMPHOCYTES % (AUTO) 21.8 % (20.0-45.0); MEAN CORPUSCULAR VOLUME 82 FL (80-99); NEUTROPHILS % (AUTO) 64.9 % (45.0-75.0); PLATELET COUNT 223 K/UL (150-450); RED BLOOD COUNT 3.26 M/UL (4.70-6.10); RED CELL DISTRIBUTION WIDTH 15.5 % (11.6-14.8); WHITE BLOOD COUNT 10.5 K/UL (4.8-10.8)
[2019-08-04 06:49] LABS: ALANINE AMINOTRANSFERASE 13 U/L (12-78); ALBUMIN/GLOBULIN RATIO 0.4 (1.0-2.7); ALKALINE PHOSPHATASE 56 U/L (46-116); ANION GAP 9 mmol/L (5-15); ASPARTATE AMINO TRANSFERASE 13 U/L (15-37); BILIRUBIN,TOTAL 0.2 MG/DL (0.2-1.0); BLOOD UREA NITROGEN 15 mg/dL (7-18); CALCIUM 8.6 MG/DL (8.5-10.1); CARBON DIOXIDE 25 MMOL/L (21-32); CHLORIDE 113 MMOL/L (98-107); CREATININE 0.7 MG/DL (0.55-1.30); POTASSIUM 3.8 MMOL/L (3.5-5.1); SODIUM 147 MMOL/L (136-145)
--- NOTE | 2019-08-04 06:54 | NUR ---
HAND-OFF: Report given to MELISA Vicente- pt. remains stable and no signs of distress noted- aware to f/u on any abnormal am labs.
--- NOTE | 2019-08-04 07:00 | NUR ---
NURSE NOTES: received patient report from martine love.patient is on bed awake, on vent at prescribed rate. NAD. no arrythmias reported last night. bed is low and locked for safety. for discharge today. will follow plan of care.
[2019-08-04] MEDS: Ferrous Sulfate 300 MG/5 ML UDC GT SCH (08:38)
[2019-08-04] MEDS: Pantoprazole Inj IVP SCH ×2 (08:40→20:01)
[2019-08-04] MEDS: levETIRAcetam 500mg/5ml Liquid GT SCH (08:40)
[2019-08-04] MEDS: Lisinopril 20mg tab GT SCH (08:43)
[2019-08-04] MEDS: metFORMIN 500mg tab ORAL SCH ×2 (08:43→17:26)
[2019-08-04] MEDS: Vitamin D 1000 IU Tab GT SCH (08:44)
[2019-08-04] MEDS: Topiramate 100mg tab GT SCH ×2 (08:45→17:26)
[2019-08-04] MEDS: Glimepiride 4mg tab GT SCH ×2 (08:45→17:26)
[2019-08-04] MEDS: Ascorbic Acid 500mg tab GT SCH (08:45)
[2019-08-04] MEDS: Docusate 100mg/10ml Liq GT SCH (08:46)
[2019-08-04] MEDS: Heparin 5000 units/ml inj SUBQ SCH ×2 (08:47→20:02)
--- NOTE | 2019-08-04 10:34 | NUR ---
CASE MANAGEMENT: DCP UPON DISCHARGE PATIENT WILL RETURN TO [id number] [phone] UNDER INTERMEDIATE CARE FAMILY TAZ JANESSA [phone] NOTIFIED OF THE PATIENT RETURNING TO [facility]. TRANSPORTATION VIA [facility] [phone] PICK TIME 12:30
--- NOTE | 2019-08-04 10:47 | NUR ---
BAGGAGE HANDLING SUPERVISOR NOTE This SURYA was informed that pt's brother, Boby Monique [phone] requested to receive information on POA. SURYA left a vm to Boby Monique for call back. Addendum: 08/04/19 at 1125 by LETY LONDON SURYA spoke w/ Boby Monique, stating that he is not the decision maker/next of kin. Boby does not want to be contacted for any decision making in the future. Pt has one biological daughter and one step daughter, Teo Albright [phone]. SURYA left a vm to Teo for call back. Boby does not have Mery's contact number, but has an address: [address] [place] [id number]. SURYA is unable to locate Mery's phone number.
--- NOTE | 2019-08-04 11:03 | Infectious Diseases Prog Note ---
Assessment/Plan Assessment/Plan Assessment: Sepsis Probable PNA- COVID19 neg x2 (resident from SNF with large outbreak) -08/01 CXR: Large left pleural effusion, possible hazy mid and lower lung infiltrates and atelectasis persist, unchanged. Right lung pleural space remain clear. -07/26 CXR: Left lung infiltrates and effusion unchanged. -07/25 sp cx MDR ABC (S colistin/polymixin B; suspect colonizer), P. mirabilis, probable AMp-C (S Cefepime, Zosyn, Meropenem) -CXR: Retrocardiac atelectasis with possible tiny left pleural effusion, correlate to exclude pneumonia.Cardiomegaly. Low lung volumes with bronchovascular crowding. -07/24 SARS-Cov2 PCR neg R elbow cellulitis- improving -xray elbow: : Limited and essentially nondiagnostic. No definite acute abnormality -V. duplex: no DVT -07/24 Bcx NTD Fever; SP Mild leukocytosis, recurrent- SP Probable Scabies, sp rx hx of MSSA,CONS bacteremia 05/2018- suspected 2ry to PICC line Hx of providencia PNA 05/2018 Dm2 HTN CVA/TIA CHF seizure disorder contractures chronic resp failure s/p trach/vent dependant vegetative state 2ry to anoxic brain injury SNF resident (kailaasha hernández) VRE colonized Plan: -Continue IV Vancomycin #/-14 for cellulitis -Cefepime #/ for PNA -INH colistin #/ -if worsening fevers, leukocytosis, switch Cefepime to Polymixin B -07/29 SP Zosyn #6 -07/26 SP Ivermectin and permethrin cream x1 -f/u cx -Monitor CBC/CMP, temperatures -COVID19 neg x2- dc isolation as afebrile >72hrs and alternate diagnosis ( cellulitis, bacterial PNA) -trach care -wound care -Sx and ortho f/u Thank you for consulting [facility]. Will continue to follow along with you. Discussed with RN Subjective Allergies: Coded Allergies: No Known Allergies (Unverified , 05/27/18) Subjective afebrile mild leukocytosis resolved cellulitis improving Objective Vital Signs Last 24 Hour Vital Signs Date Time Temp Pulse Resp B/P (MAP) Pulse Ox O2 Delivery O2 Flow Rate FiO2 08/04/19 09:04 171/78 6/10/20 08:53 98.4 79 15 171/78 (109) 100 08/04/19 08:43 171/75 08/04/19 08:00 40 08/04/19 08:00 Mechanical Ventilator 30.0 08/04/19 07:58 75 22 40 08/04/19 07:45 78 08/04/19 05:11 153/74 08/04/19 04:00 40 08/04/19 04:00 Mechanical Ventilator 30.0 08/04/19 04:00 97.6 59 18 143/74 (97) 100 08/04/19 03:28 56 08/04/19 03:07 58 19 40 08/04/19 02:51 148/76 (100) 08/04/19 01:10 161/73 08/04/19 00:00 40 08/04/19 00:00 Mechanical Ventilator 30.0 08/04/19 00:00 98.3 79 18 151/68 (95) 100 08/04/19 00:00 58 08/03/19 23:33 58 18 100 Mechanical Ventilator 40 62 19 40 08/03/19 21:16 152/82 08/03/19 20:00 40 08/03/19 20:00 Mechanical Ventilator 30.0 08/03/19 20:00 98.1 72 16 148/73 (98) 100 08/03/19 19:31 53 08/03/19 19:15 62 19 40 08/03/19 16:00 40 08/03/19 16:00 40 08/03/19 16:00 Mechanical Ventilator 30.0 08/03/19 16:00 Mechanical Ventilator 30.0 08/03/19 16:00 97.9 62 14 159/83 (108) 100 08/03/19 15:42 53 08/03/19 14:56 59 19 40 08/03/19 13:15 164/76 08/03/19 12:00 40 08/03/19 12:00 98.4 62 21 165/76 (105) 98 08/03/19 12:00 Mechanical Ventilator 40.0 08/03/19 11:53 90 08/03/19 11:10 54 18 100 Mechanical Ventilator 40 58 19 40 Height (Feet): 5 Height (Inches): 8.00 Weight (Pounds): 215 Objective Gen: chornically ill, no distress HEENT: trach in place, EOMI Lungs: no tachypnea, no use of accessory muscles Abd: no distended Ext: R elbow redness and swelling improving Laboratory Tests Test 08/04/19 05:20 White Blood Count 10.5 K/UL (4.8-10.8) Red Blood Count 3.26 M/UL (4.70-6.10) L Hemoglobin 8.8 G/DL (14.2-18.0) L Hematocrit 26.6 % (42.0-52.0) L Mean Corpuscular Volume 82 FL (80-99) Mean Corpuscular Hemoglobin 26.9 PG (27.0-31.0) L Mean Corpuscular Hemoglobin Concent 32.9 G/DL (32.0-36.0) Red Cell Distribution Width 15.5 % (11.6-14.8) H Platelet Count 223 K/UL (150-450) Mean Platelet Volume 6.5 FL (6.5-10.1) Neutrophils (%) (Auto) 64.9 % (45.0-75.0) Lymphocytes (%) (Auto) 21.8 % (20.0-45.0) Monocytes (%) (Auto) 5.0 % (1.0-10.0) Eosinophils (%) (Auto) 7.3 % (0.0-3.0) H Basophils (%) (Auto) 1.1 % (0.0-2.0) Sodium Level 147 MMOL/L (136-145) H Potassium Level 3.8 MMOL/L (3.5-5.1) Chloride Level 113 MMOL/L (98-107) H Carbon Dioxide Level 25 MMOL/L (21-32) Anion Gap 9 mmol/L (5-15) Blood Urea Nitrogen 15 mg/dL (7-18) Creatinine 0.7 MG/DL (0.55-1.30) Estimat Glomerular Filtration Rate > 60 mL/min (>60) Glucose Level 99 MG/DL (74-106) Calcium Level 8.6 MG/DL (8.5-10.1) Total Bilirubin 0.2 MG/DL (0.2-1.0) Aspartate Amino Transf (AST/SGOT) 13 U/L (15-37) L Alanine Aminotransferase (ALT/SGPT) 13 U/L (12-78) Alkaline Phosphatase 56 U/L (46-116) Total Protein 6.5 G/DL (6.4-8.2) Albumin 2.0 G/DL (3.4-5.0) L Globulin 4.5 g/dL Albumin/Globulin Ratio 0.4 (1.0-2.7) L Current Medications Medications (Trade) Dose Ordered Sig/Bhupinder Route PRN Reason Start Time Stop Time Status Last Admin Dose Admin Acetaminophen (Tylenol) 650 mg Q4H PRN GT fever and mild pain 07/26/19 16:30 08/25/19 16:29 08/03/19 05:08 Albuterol Sulfate (Proventil MDI) 2 puff Q3H PRN INH Shortness of Breath 07/26/19 16:30 10/24/19 16:29 Ascorbic Acid (Vitamin C) 500 mg DAILY GT 07/27/19 09:00 08/26/19 08:59 08/04/19 08:45 Atorvastatin Calcium (Lipitor) 10 mg BEDTIME GT 07/26/19 21:00 10/24/19 20:59 08/03/19 20:42 Cefepime HCl 1 gm/ Dextrose 55 ml @ 110 mls/hr EVERY 8 HOURS IVPB 07/30/19 22:00 08/06/19 21:59 08/04/19 05:11 Chlorhexidine Gluconate (Jasmin-Hex 2%) 1 applic DAILY@2000 TOPIC 07/26/19 20:00 10/24/19 19:59 08/03/19 20:42 Colistimethate Sodium (Colistin *inhalation use only*) 75 mg Q12HR@10,22 INH 08/01/19 10:30 08/08/19 10:29 08/03/19 22:00 Dextrose (Dextrose 50%) 25 ml Q30M PRN IV Hypoglycemia 07/26/19 16:30 10/24/19 16:29 Dextrose (Dextrose 50%) 50 ml Q30M PRN IV Hypoglycemia 07/26/19 16:30 10/24/19 16:29 Docusate Sodium (Colace) 100 mg DAILY GT 07/27/19 09:00 08/26/19 08:59 08/02/19 09:57 Ferrous Sulfate (Feosol) 325 mg DAILY GT 07/27/19 09:00 10/25/19 08:59 08/04/19 08:38 Glimepiride (AmaryL) 4 mg BID GT 07/26/19 18:00 08/25/19 17:59 08/04/19 08:45 Heparin Sodium (Porcine) (Heparin 5000 units/ml) 5,000 units EVERY 12 HOURS SUBQ 07/26/19 09:00 09/09/19 08:59 08/04/19 08:47 Hydralazine HCl (Apresoline) 25 mg Q6H PRN ORAL SBP above 150 08/01/19 02:45 10/30/19 02:44 08/04/19 09:04 Hydralazine HCl (Apresoline) 100 mg EVERY 8 HOURS GT 07/30/19 06:00 10/24/19 21:59 08/04/19 05:11 Insulin Aspart (NovoLOG) Q6HR SUBQ 07/26/19 18:00 10/24/19 16:29 08/02/19 11:44 Levetiracetam (Keppra) 1,500 mg DAILY GT 07/27/19 09:00 08/26/19 08:59 08/04/19 08:40 Lisinopril (PriniviL) 40 mg DAILY GT 07/27/19 09:00 08/26/19 08:59 08/04/19 08:43 Metformin HCl (Glucophage) 1,000 mg BID ORAL 07/26/19 18:00 08/25/19 17:59 08/04/19 08:43 Ondansetron HCl (Zofran) 4 mg Q4H PRN GT Nausea & Vomiting 07/26/19 16:30 08/25/19 16:29 Pantoprazole (Protonix) 40 mg EVERY 12 HOURS IVP 07/26/19 09:00 08/25/19 08:59 08/04/19 08:40 Potassium Chloride (K-Dur) 40 meq TWICE A DAY GT 07/27/19 18:00 10/25/19 17:59 08/04/19 08:46 Topiramate (Topamax) 200 mg BID GT 07/26/19 18:00 08/25/19 17:59 08/04/19 08:45 Vancomycin HCl (Vanco pharmacy to dose) 1 ea DAILY PRN MISC rx protocol 07/31/19 15:15 08/30/19 15:14 Vancomycin HCl 500 mg/Dextrose 110 ml @ 110 mls/hr Q12H IVPB 08/03/19 00:00 08/08/19 00:00 08/03/19 23:02 Vitamin D (Vitamin D) 5,000 intlu DAILY GT 07/26/19 09:00 08/25/19 08:59 08/04/19 08:44 Zinc Oxide (Zinc Oxide) 1 applic THREE TIMES A DAY PRN TOPIC REDNESS 07/26/19 12:45 10/24/19 12:44 Consuelo Zambrano M.D. Aug 04, 2019 11:03
--- NOTE | 2019-08-04 11:29 | NUR ---
PT'S BROTHER TAZ RIDDLE WILL NOT MAKE DECISION FOR PT
--- NOTE | 2019-08-04 12:08 | Pulmonolgy Critical Care Note ---
Critical Care - Asmt/Plan Problems: (1) Nosocomial pneumonia (2) Pleural effusion (3) Severe sepsis (4) Chronic respiratory failure (5) Severe anemia (6) Cellulitis of right upper extremity (7) Tracheostomy dependence (8) Contracture of joint of multiple sites (9) Diabetes mellitus (10) Vegetative state (11) Cerebrovascular accident (CVA) Respiratory: monitor respiratory rate, adjust FIO2, CXR - repeat CXR to f/u on left effusion, other Cardiac: continue pressors Renal: keep IV fluid, check electrolytes Infectious Disease: check cultures, continue antibiotics Gastrointestinal: continue feedings/current rate Endocrine: check TSH Hematologic: monitor H/H, transfuse if hgb<8.5 Neurologic: PRN Morphine, keep patient comfortable Affect: PRN ativan Prophylaxis: Protonix, Heparin Time Spent (Minutes): 40 Notes 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 Discussed with: nurses, consultants, manager caseoccupational health manager - Objective Last 24 Hour Vital Signs Date Time Temp Pulse Resp B/P (MAP) Pulse Ox O2 Delivery O2 Flow Rate FiO2 08/04/19 09:04 171/78 08/04/19 08:53 98.4 79 15 171/78 (109) 100 08/04/19 08:43 171/75 08/04/19 08:00 40 08/04/19 08:00 Mechanical Ventilator 30.0 08/04/19 07:58 75 22 40 08/04/19 07:45 78 08/04/19 05:11 153/74 08/04/19 04:00 40 08/04/19 04:00 Mechanical Ventilator 30.0 08/04/19 04:00 97.6 59 18 143/74 (97) 100 08/04/19 03:28 56 08/04/19 03:07 58 19 40 08/04/19 02:51 148/76 (100) 08/04/19 01:10 161/73 08/04/19 00:00 40 08/04/19 00:00 Mechanical Ventilator 30.0 08/04/19 00:00 98.3 79 18 151/68 (95) 100 08/04/19 00:00 58 08/03/19 23:33 58 18 100 Mechanical Ventilator 40 62 19 40 08/03/19 21:16 152/82 08/03/19 20:00 40 08/03/19 20:00 Mechanical Ventilator 30.0 08/03/19 20:00 98.1 72 16 148/73 (98) 100 08/03/19 19:31 53 08/03/19 19:15 62 19 40 08/03/19 16:00 40 08/03/19 16:00 40 08/03/19 16:00 Mechanical Ventilator 30.0 08/03/19 16:00 Mechanical Ventilator 30.0 08/03/19 16:00 97.9 62 14 159/83 (108) 100 08/03/19 15:42 53 08/03/19 14:56 59 19 40 08/03/19 13:15 164/76 Status: sedated Condition: critical HEENT: atraumatic Lungs: rales, rhonchi Heart: HR/BP stable, regular Abdomen: soft, active bowel sounds Extremities: no C/C/E Accucheck: 87 Critical Care - Subjective ROS Limited/Unobtainable: Yes Condition: critical EKG Rhythm: Sinus Rhythm FI02: 40 Vent Support Breath Rate: 10 Vent Support Mode: AC Vent Tidal Volume: 500 Sputum Amount: Scant PEEP: 5.0 PIP: 29 Tube Feeding Amount: 65 I&O: Intake and Output 08/03/19 08/04/19 19:00 07:00 Intake Total 215 ml 1095 ml Output Total 1300 ml 750 ml Balance -1085 ml 345 ml Intake Free Water 20 ml 50 ml IV Total 330 ml Tube Feeding 195 ml 715 ml Output Urine Total 1300 ml 750 ml # Bowel Movements 3 Labs: Laboratory Tests Test 08/04/19 05:20 White Blood Count 10.5 K/UL (4.8-10.8) Red Blood Count 3.26 M/UL (4.70-6.10) L Hemoglobin 8.8 G/DL (14.2-18.0) L Hematocrit 26.6 % (42.0-52.0) L Mean Corpuscular Volume 82 FL (80-99) Mean Corpuscular Hemoglobin 26.9 PG (27.0-31.0) L Mean Corpuscular Hemoglobin Concent 32.9 G/DL (32.0-36.0) Red Cell Distribution Width 15.5 % (11.6-14.8) H Platelet Count 223 K/UL (150-450) Mean Platelet Volume 6.5 FL (6.5-10.1) Neutrophils (%) (Auto) 64.9 % (45.0-75.0) Lymphocytes (%) (Auto) 21.8 % (20.0-45.0) Monocytes (%) (Auto) 5.0 % (1.0-10.0) Eosinophils (%) (Auto) 7.3 % (0.0-3.0) H Basophils (%) (Auto) 1.1 % (0.0-2.0) Sodium Level 147 MMOL/L (136-145) H Potassium Level 3.8 MMOL/L (3.5-5.1) Chloride Level 113 MMOL/L (98-107) H Carbon Dioxide Level 25 MMOL/L (21-32) Anion Gap 9 mmol/L (5-15) Blood Urea Nitrogen 15 mg/dL (7-18) Creatinine 0.7 MG/DL (0.55-1.30) Estimat Glomerular Filtration Rate > 60 mL/min (>60) Glucose Level 99 MG/DL (74-106) Calcium Level 8.6 MG/DL (8.5-10.1) Total Bilirubin 0.2 MG/DL (0.2-1.0) Aspartate Amino Transf (AST/SGOT) 13 U/L (15-37) L Alanine Aminotransferase (ALT/SGPT) 13 U/L (12-78) Alkaline Phosphatase 56 U/L (46-116) Total Protein 6.5 G/DL (6.4-8.2) Albumin 2.0 G/DL (3.4-5.0) L Globulin 4.5 g/dL Albumin/Globulin Ratio 0.4 (1.0-2.7) L Yomi Odom MD Aug 04, 2019 12:07
[2019-08-04] MEDS: Vancomycin 500mg/D5W 110ml IVPB SCH ×4 (12:11→23:26)
[2019-08-04] MEDS: Colistin for inhalation INH SCH ×2 (12:13→22:51)
--- NOTE | 2019-08-04 13:06 | NUR ---
CASE MANAGEMENT: REVIEW SI: CELLULITIS RIGHT ARM . SEPSIS T 98.4 HR 79 RR 15 BP 171/78 SAT 100% MECH VENT FIO2 40 H/H 8.8/26.6 NA 147 CHLORIDE 113 IS: PROTONIX IV Q12HR CEFEPIME IV Q8HR VANCOMYCIN IV Q12HR METFORMIN GT BID NOVOLOG SUBQ Q6HR HYDRALAZINE 25MG GT Q6HR PRN FOR SBP >150 STEP DOWN UNIT STATUS DCP: PATIENT IS FROM [facility]
--- NOTE | 2019-08-04 14:14 | Surgery Progress Note ---
Surgery Progress Note Subjective Additional Comments no acute events labs noted exam stable comfortable micro reviewed Objective Last 24 Hour Vital Signs Date Time Temp Pulse Resp B/P (MAP) Pulse Ox O2 Delivery O2 Flow Rate FiO2 08/04/19 12:00 Mechanical Ventilator 30.0 08/04/19 11:56 80 23 100 Mechanical Ventilator 40 79 20 40 08/04/19 09:04 171/78 08/04/19 08:53 98.4 79 15 171/78 (109) 100 08/04/19 08:43 171/75 08/04/19 08:00 40 08/04/19 08:00 Mechanical Ventilator 30.0 08/04/19 07:58 75 22 40 08/04/19 07:45 78 08/04/19 05:11 153/74 08/04/19 04:00 40 08/04/19 04:00 Mechanical Ventilator 30.0 08/04/19 04:00 97.6 59 18 143/74 (97) 100 08/04/19 03:28 56 08/04/19 03:07 58 19 40 08/04/19 02:51 148/76 (100) 08/04/19 01:10 161/73 08/04/19 00:00 40 08/04/19 00:00 Mechanical Ventilator 30.0 08/04/19 00:00 98.3 79 18 151/68 (95) 100 08/04/19 00:00 58 08/03/19 23:33 58 18 100 Mechanical Ventilator 40 62 19 40 08/03/19 21:16 152/82 08/03/19 20:00 40 08/03/19 20:00 Mechanical Ventilator 30.0 08/03/19 20:00 98.1 72 16 148/73 (98) 100 08/03/19 19:31 53 08/03/19 19:15 62 19 40 08/03/19 16:00 40 08/03/19 16:00 40 08/03/19 16:00 Mechanical Ventilator 30.0 08/03/19 16:00 Mechanical Ventilator 30.0 08/03/19 16:00 97.9 62 14 159/83 (108) 100 08/03/19 15:42 53 08/03/19 14:56 59 19 40 I&O Intake and Output 08/03/19 08/04/19 19:00 07:00 Intake Total 215 ml 1095 ml Output Total 1300 ml 750 ml Balance -1085 ml 345 ml Intake Free Water 20 ml 50 ml IV Total 330 ml Tube Feeding 195 ml 715 ml Output Urine Total 1300 ml 750 ml # Bowel Movements 3 Dressing: other Wound: other Drains: other Cardiovascular: RSR Respiratory: decreased breath sounds Abdomen: soft, non-tender, present bowel sounds Extremities: no cyanosis Laboratory Tests Test 08/04/19 05:20 White Blood Count 10.5 K/UL (4.8-10.8) Red Blood Count 3.26 M/UL (4.70-6.10) L Hemoglobin 8.8 G/DL (14.2-18.0) L Hematocrit 26.6 % (42.0-52.0) L Mean Corpuscular Volume 82 FL (80-99) Mean Corpuscular Hemoglobin 26.9 PG (27.0-31.0) L Mean Corpuscular Hemoglobin Concent 32.9 G/DL (32.0-36.0) Red Cell Distribution Width 15.5 % (11.6-14.8) H Platelet Count 223 K/UL (150-450) Mean Platelet Volume 6.5 FL (6.5-10.1) Neutrophils (%) (Auto) 64.9 % (45.0-75.0) Lymphocytes (%) (Auto) 21.8 % (20.0-45.0) Monocytes (%) (Auto) 5.0 % (1.0-10.0) Eosinophils (%) (Auto) 7.3 % (0.0-3.0) H Basophils (%) (Auto) 1.1 % (0.0-2.0) Sodium Level 147 MMOL/L (136-145) H Potassium Level 3.8 MMOL/L (3.5-5.1) Chloride Level 113 MMOL/L (98-107) H Carbon Dioxide Level 25 MMOL/L (21-32) Anion Gap 9 mmol/L (5-15) Blood Urea Nitrogen 15 mg/dL (7-18) Creatinine 0.7 MG/DL (0.55-1.30) Estimat Glomerular Filtration Rate > 60 mL/min (>60) Glucose Level 99 MG/DL (74-106) Calcium Level 8.6 MG/DL (8.5-10.1) Total Bilirubin 0.2 MG/DL (0.2-1.0) Aspartate Amino Transf (AST/SGOT) 13 U/L (15-37) L Alanine Aminotransferase (ALT/SGPT) 13 U/L (12-78) Alkaline Phosphatase 56 U/L (46-116) Total Protein 6.5 G/DL (6.4-8.2) Albumin 2.0 G/DL (3.4-5.0) L Globulin 4.5 g/dL Albumin/Globulin Ratio 0.4 (1.0-2.7) L Plan Problems: (1) Cellulitis of right upper extremity Assessment & Plan: This is a 69-year-old male with fevers, leukocytosis, abnormal labs, right elbow cellulitis identified upper extremity. There is significant erythema edema without drainage or fluctuance. The edema is pitting and the right upper extremity does have a contracture at the level of the elbow. With gentle manipulation can slowly begin to straighten the elbow but does have overall limited movement. Plain films identified no fractures noted. No history of fall. No trauma identifiable on examination. Though this could potentially be a infectious process looks inflammatory in nature potentially dependent edema versus venous congestion. Ultrasound upper extremity will be ordered. Pillow to be placed underneath the axilla and to help elevate the elbow. Pillow placed in between the elbow to allow for some decompression. Will monitor skin closely as edema worsening and could breakdown. 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 Historical scar with hyperpigmentation Sacrum . Area of non-blanching erythema also noted at previously injured site. Base of scrotum is erythematous with partial thickness shearing. Generalized Maculopapular red rash noted. Cleanse GT site with Soap and tepid water. Apply Zinc Oxide Paste to GT site Three times daily. Apply Moisture Barrier Paste to Buttocks . Cover with Optifoam drsg. Change every 3 days and prn. Apply Moisture Barrier Paste to Scrotum with each Incontinence care. Reposition at least every 2hours or as tolerated. Off-load heels with Pillow. DAILY ESTIMATED NEEDS: Needs based on DM, critical care 68kg abw 22-28 kcals/kg [id number] total kcals 1.2-2 g protein/kg 81-136 g total protein 25-30 mL/kg 3572-7629 total fluid mLs NUTRITION DIAGNOSIS: 1) Swallowing difficulty r/t respiratory status as evidenced by pt is vent dep via trach, on GT feeds CURRENT TF: Glucerna 1.2 @ 65ml/hr x 20 hrs ENTERAL NUTRITION RECOMMENDATIONS: Glucerna 1.2 @ 65ml/hr x 20 hrs to provide 1300ml, 1560kcal, 78g prot, 1046ml free water - Maintain current TF as ordered - Once in stock, add prosource 1 pack QD for additional 11g prot to better meet est needs - HOB over 30 degrees/ water flush 170ml q 6hrs For continuous run x 24 hrs, rec Glucerna 1.2 @ 55ml/hr x 24 hrs to provide 1320ml, 1584kcal, 79g prot, 1063ml free water ADDITIONAL RECOMMENDATIONS: (1) Per SNF: HT=66" BQ=419tof (June 2019) (2) Monitor lytes closely, replete as needed (low phos) (3) Skin integrity: add Shoaib BID via PEG TF @ goal will provide 100% RDI Jaden Doshi Aug 04, 2019 14:14
--- NOTE | 2019-08-04 15:00 | History and Physical Report ---
DATE OF ADMISSION: 07/25/2019 This is one of several admissions to [facility] for this 69-year-old patient because of cellulitis and possible right elbow joint sepsis of the right upper extremity. HISTORY OF PRESENT ILLNESS: The patient is a resident of an extended care facility subacute unit. He has been relatively in stable condition for many years. He is known to have several chronic medical syndrome, but has been stable on current medications. Several days ago, he developed progressive pain, redness, and swelling of the right elbow. He was started on ceftriaxone 1 g IV piggyback q.24 h.; however, his condition did not improve. In fact, his swelling and the redness had increased, he was transferred to [facility] ER and was admitted. PAST MEDICAL HISTORY: Many years ago, the patient had intracerebral hemorrhage, since then he developed respiratory failure and was placed on mechanical ventilation. He was unable to be weaned, underwent tracheostomy and gastrostomy and referred to the subacute unit. In addition to those procedures, the patient is known to have high blood pressure, diabetes mellitus, hyperlipidemia, hypovitaminosis D, and seizure disorder. syndrome medicated and the patient has been stable in the subacute unit for many years. ALLERGIES: No known drug allergy. MEDICATIONS: The patient is on metformin 500 mg twice a day, linagliptin 5 mg daily. He is on levetiracetam 500 mg twice a day, vitamin D 5000 units daily. He is on metoprolol 50 mg daily, atorvastatin 10 mg daily, aspirin 81 mg daily. FAMILY HISTORY: Noncontributory. The patient is conserved by his niece who is durable power of tax attorney for healthcare. SOCIAL HISTORY: He is single. He was born in [place]. He has been on SSI for many years . HABITS: The patient does not smoke, drink, or use illicit drugs. REVIEW OF SYSTEMS: The patient is unable to give any information regarding his state of health. PHYSICAL EXAMINATION: VITAL SIGNS: Blood pressure is 154/69, his pulse is 72, respirations 18, temperature 99.3. HEENT: Eyes were normal. Pupils were round, equal, and reactive to light. Sclerae were white. Conjunctivae were pink. Extraocular movements were normal. Temporal arteries were palpable bilaterally. There was some bilateral temporal wasting. Visual field to confrontation and neglect sign could not be assessed. ENT, mucous membranes were not dehydrated. Auditory canals were clear and tympanic membranes could not be visualized. Nasal cavity was not congested. Nasal septum was intact. Soft palate, pharynx and uvula could not be visualized. Tongue was moist, midline, and normally papillated. NECK: Supple. There was no goiter. No mass. No lymphadenopathy. There was no JVD. No bruits. Carotid upstroke was 2+. Tracheostomy site was clean. LUNGS: Clear without rhonchi, rales, or wheezing. HEART: PMI was in fifth left intercostal space in midclavicular line. There was normal S1 and normal S2. There was no murmur. No arrhythmia. No S3. No S4. No pericardial rub. ABDOMEN: Soft, nontender without organomegaly. There were no masses palpable. There was normal bowel sounds without bruit. There was no guarding or rebound tenderness. No ascites. No hernia. No CVA tenderness. Liver span was 8 cm, mostly nontender. Gastrostomy site was clean. EXTREMITIES: No cyanosis, no clubbing, and no edema. Extremities were warm. The right upper extremity was swollen especially the lower part of the deltoid muscle up to elbow. The area was swollen, warm, tender, and red. The swelling did not progress to the forearm and the hand. LABORATORY DATA: No laboratory data available at the time of this dictation. IMPRESSION: The patient has possible infectious cellulitis of the right elbow. PLAN: The patient will be started on Zosyn 3.375 g IV piggyback every six hours and vancomycin 1 g IV piggyback q.12 h. Infectious Disease corporate learning consultant, orthopedic corporate learning consultant, and Pulmonary corporate learning consultant will be called to assist in the management of this case. Repeat laboratory tests will be done in a.m. Janette Weaver M.D. DR: LADAN JOB#: [id number] CC:
--- NOTE | 2019-08-04 15:10 | NUR ---
RADIOLOGY DEPT., CHEST X-RAY DONE.-P.DYE
--- NOTE | 2019-08-04 16:07 | Diagnostic Imaging Report ---
Indication: Shortness of breath Technique: One view of the chest Comparison: 08/02/2019 Findings: Left pleural effusion, bilateral left greater than right interstitial congestion persists. Tracheostomy remains. The heart appears enlarged. Findings are unchanged Impression: Unchanged, over 2 days, findings as above.
[2019-08-04] MEDS: HydrALAZINE 50mg tab GT PRN (17:34)
[2019-08-04] MEDS ORDERED: NS 275ml ONE (18:39)
--- NOTE | 2019-08-04 19:21 | NUR ---
NURSE NOTES: Received report from MELISA Vicente, pt. in bed obtunded- eyes open- no eye tracking noted, no signs or symptoms of acute cardiac or respiratory distress noted, bed alarm on, bed in lowest position, call light within easy reach, side rails up x's 3 and safety brakes locked in position, side rails padded for seizure precautions- no seizure activity noted- upon assessment, pt. appears to be tolerating current vent settings well- AC 10, TV 500, peep 5, and fio2 at 40%- no distress noted, pt. appears to be tolerating current Feeding G tube feeding Glucerna 1.2 at 65cc/hr- no residual noted, pt. appears clean and dry, pt. appears to be resting comfortably, ANGELES picc intact and patent- TKO, safety measures continued, will continue with plan of care. per Endorsement to add order for Ativan 1mg IVP X's 1 (one time order only), for elevated b/p- as computer system was down at time order was given- will carry out orders Addendum: 08/04/19 at 1926 by BENI CARVALHO RN RN Crow intact and draining to gravity.
[2019-08-04] MEDS ORDERED: LORazepam Inj 2mg/ml 1ml IV SCH (19:30)
[2019-08-04] MEDS: Dyna-Hex 2% Top Sol 2oz TOPIC SCH (19:39)
--- NOTE | 2019-08-04 19:40 | NUR ---
NURSE NOTES: pts. b/p re-checked it is now 181/79 heart rate 69- Ativan Ativan given as ordered- waste 1mg witnessed by Michael Vera- will continue to monitor pt.
[2019-08-05] VITALS (7 sets, daily range): BP systolic 130–167; BP diastolic 60–77
--- NOTE | 2019-08-05 02:30 | Progress Note ---
DATE: 08/04/2019 SUBJECTIVE: The patient is awake, alert, afebrile, and hemodynamically stable, and there is substantial improvement in his right elbow swelling, redness, and tenderness, and the patient appears in peaceful facial expression. PHYSICAL EXAMINATION: VITAL SIGNS: Blood pressure 155/69, his pulse is 72, respirations are 18, and temperature 98.3. HEENT: Eyes were normal. ENT, mucous membranes were moist and intact. NECK: Supple with no JVD without lymph nodes. Tracheostomy site is clean. LUNGS: Clear without rhonchi, rales, or wheezing. HEART: Normal sounds with regular beat. ABDOMEN: Soft, nontender with normal bowel sounds. Gastrostomy site is clean. EXTREMITIES: Warm without cyanosis, clubbing, or edema. LABORATORY DATA: No new laboratory data available at the time of this dictation as the computer is down. cannot be generated. IMPRESSION: The patient had a chest x-ray because of previous pleural effusion to assess the dynamics of the pleural effusion itself. The issue will be discussed once the data is available. Update of patient's condition will be done tomorrow in regard to progress. Janette Weaver M.D. DR: DEJON JOB#: [id number] CC:
--- NOTE | 2019-08-05 03:45 | Progress Note ---
DATE: 08/04/2019 CARDIOLOGY PROGRESS NOTE SUBJECTIVE: Less episodes of bradycardia. PHYSICAL EXAMINATION: VITAL SIGNS: Blood pressure parameters stable. Heart rate 55 to 80. LUNGS: Diminished breath sounds on the right. LUNGS: Bilateral rales. CARDIAC: Regular rhythm and rate. Normal S1, S2. EXTREMITIES: 1+ edema. Sodium 147, potassium 3.8, bicarb 25, BUN 15, creatinine 0.7. Chest x-ray as noted above. IMPRESSION: 1. Sinus bradycardia. 2. Sinus node disease. 3. Acute on chronic diastolic congestive heart failure. 4. Right pleural effusion. 5. Comatose state. 6. Ventilator dependent with tracheostomy. 7. Dehydration with hypernatremia. PLAN: 1. Diuresis. 2. Off all medications with negative chronotropic potential. 3. Free water replacement. 4. Continue cardiac monitoring. No indication for pacemaker. Otto Condon M.D. DR: EDIL JOB#: [id number] CC:
[2019-08-05 04:59] LABS: BASOPHILS % (AUTO) 0.5 % (0.0-2.0); EOSINOPHILS % (AUTO) 6.9 % (0.0-3.0); HEMATOCRIT 28.3 % (42.0-52.0); HEMOGLOBIN 9.2 G/DL (14.2-18.0); LYMPHOCYTES % (AUTO) 21.1 % (20.0-45.0); MEAN CORPUSCULAR VOLUME 82 FL (80-99); MONOCYTES % (AUTO) 3.2 % (1.0-10.0); NEUTROPHILS % (AUTO) 68.4 % (45.0-75.0); PLATELET COUNT 233 K/UL (150-450); RED BLOOD COUNT 3.47 M/UL (4.70-6.10); RED CELL DISTRIBUTION WIDTH 15.5 % (11.6-14.8); WHITE BLOOD COUNT 11.6 K/UL (4.8-10.8)
[2019-08-05] MEDS: NovoLOG Insulin Flexpen SUBQ SCH ×3 (05:04→17:56)
[2019-08-05] MEDS: Cefepime HCl 1 GM in D5W 55 ML IVPB SCH ×3 (05:09→22:04)
[2019-08-05] MEDS: HydrALAZINE 50mg tab GT SCH ×3 (05:10→22:04)
[2019-08-05 05:46] LABS: ALANINE AMINOTRANSFERASE 18 U/L (12-78); ALBUMIN 2.1 G/DL (3.4-5.0); ALBUMIN/GLOBULIN RATIO 0.5 (1.0-2.7); ALKALINE PHOSPHATASE 56 U/L (46-116); ANION GAP 9 mmol/L (5-15); ASPARTATE AMINO TRANSFERASE 20 U/L (15-37); BILIRUBIN,TOTAL 0.1 MG/DL (0.2-1.0); BLOOD UREA NITROGEN 17 mg/dL (7-18); CALCIUM 8.7 MG/DL (8.5-10.1); CARBON DIOXIDE 28 MMOL/L (21-32); CHLORIDE 109 MMOL/L (98-107); CREATININE 0.8 MG/DL (0.55-1.30); PHOSPHORUS 4.1 MG/DL (2.5-4.9); SODIUM 145 MMOL/L (136-145)
--- NOTE | 2019-08-05 07:13 | NUR ---
HAND-OFF: Report given to Dwaine RN- pt. remains stable- aware to f/u on any am abnormal labs.
--- NOTE | 2019-08-05 07:15 | NUR ---
NURSE NOTES: Report received from Katie VINCENT.Pt resting quietly in bed asleep noted no resp distress ,with trach tube to vent,ordered vent settings tolerated,no signs of pain or discomfort,S-Don on the monitor,GTF Glucerna 1.2 at 65ml/hr no residual noted,Crow cath draining yellow urine,Skin warm and dry IV site to ANGELES PICC line intact,SR up x2 HOB elevated,bed lock in lowest position,will continue with plans of care.
[2019-08-05] MEDS: Ferrous Sulfate 300 MG/5 ML UDC GT SCH (09:52)
[2019-08-05] MEDS: Glimepiride 4mg tab GT SCH ×2 (09:52→17:55)
[2019-08-05] MEDS: Docusate 100mg/10ml Liq GT SCH (09:52)
[2019-08-05] MEDS: Lisinopril 20mg tab GT SCH (09:54)
[2019-08-05] MEDS: levETIRAcetam 500mg/5ml Liquid GT SCH (09:54)
[2019-08-05] MEDS: Ascorbic Acid 500mg tab GT SCH (09:55)
[2019-08-05] MEDS: Topiramate 100mg tab GT SCH ×2 (09:55→17:55)
[2019-08-05] MEDS: Vitamin D 1000 IU Tab GT SCH (09:56)
[2019-08-05] MEDS: metFORMIN 500mg tab ORAL SCH ×2 (09:56→17:54)
[2019-08-05] MEDS: Pantoprazole Inj IVP SCH ×2 (09:57→20:37)
[2019-08-05] MEDS: Heparin 5000 units/ml inj SUBQ SCH ×2 (09:59→20:38)
--- NOTE | 2019-08-05 11:00 | NUR ---
NURSE NOTES: Oral care done,tracheal/oral secretions suctioned PRN,Pulled up and repositioned and turned to sides,pt very contracted.
--- NOTE | 2019-08-05 11:25 | NUR ---
RD ASSESSMENT & RECOMMENDATIONS SEE CARE ACTIVITY FOR COMPLETE ASSESSMENT DAILY ESTIMATED NEEDS: Needs based on DM, critical care 68kg abw 22-28 kcals/kg 2469-1346 total kcals 1.2-2 g protein/kg 81-136 g total protein 25-30 mL/kg 8064-1650 total fluid mLs NUTRITION DIAGNOSIS: 1) Swallowing difficulty r/t respiratory status as evidenced by pt is vent dep via trach, on GT feeds CURRENT TF: Glucerna 1.2 @ 65ml/hr x 20 hrs ENTERAL NUTRITION RECOMMENDATIONS: Glucerna 1.2 @ 65ml/hr x 20 hrs + Prosource qdaily to provide 1300ml, 1560kcal, 78g +11g prot, 1046ml free water - Maintain current TF as ordered - Once in stock, add prosource 1 pack QD for additional 11g prot to better meet est needs - HOB over 30 degrees/ water flush per MD For continuous run x 24 hrs, rec Glucerna 1.2 @ 55ml/hr x 24 hrs to provide 1320ml, 1584kcal, 79g prot, 1063ml free water ADDITIONAL RECOMMENDATIONS: 1) Per SNF: HT=66" [id number] (June 2019) 2) Monitor lytes closely, replete as needed 3) Skin integrity: add Shoaib BID via PEG TF @ goal will provide 100% RDI 4) Daily wt monitoring given CHF dx, now on Lasix .
--- NOTE | 2019-08-05 11:29 | Pulmonolgy Critical Care Note ---
Critical Care - Asmt/Plan Problems: (1) Nosocomial pneumonia (2) Pleural effusion (3) Severe sepsis (4) Chronic respiratory failure (5) Severe anemia (6) Cellulitis of right upper extremity (7) Tracheostomy dependence (8) Contracture of joint of multiple sites (9) Diabetes mellitus (10) Vegetative state (11) Cerebrovascular accident (CVA) Respiratory: monitor respiratory rate, adjust FIO2, CXR Cardiac: continue pressors, continue to monitor HR/BP Renal: F/U I&O, check electrolytes Infectious Disease: check cultures, continue antibiotics Gastrointestinal: continue feedings/current rate Endocrine: monitor blood sugar, continue sliding scale insulin Hematologic: monitor H/H, transfuse if hgb<8.5 Neurologic: PRN Ativan, keep patient comfortable Affect: PRN ativan Prophylaxis: Protonix Time Spent (Minutes): 40 Notes Reviewed: coin box inspector, cardio Discussed with: nurses, consultants, caser inmanager house - Objective Last 24 Hour Vital Signs Date Time Temp Pulse Resp B/P (MAP) Pulse Ox O2 Delivery O2 Flow Rate FiO2 08/05/19 09:54 138/74 08/05/19 08:01 98.2 54 14 138/74 (95) 100 08/05/19 08:00 40 08/05/19 07:29 58 15 40 08/05/19 05:10 152/77 08/05/19 04:00 98.9 60 17 152/77 (102) 100 08/05/19 04:00 40 08/05/19 04:00 Mechanical Ventilator 30.0 08/05/19 03:32 56 08/05/19 03:22 71 20 40 08/05/19 00:00 40 08/05/19 00:00 97.7 59 18 131/60 (83) 100 08/05/19 00:00 Mechanical Ventilator 30.0 08/04/19 23:29 57 08/04/19 22:51 63 18 100 Mechanical Ventilator 40 69 18 40 08/04/19 22:00 148/72 (97) 08/04/19 21:27 127/59 08/04/19 20:00 Mechanical Ventilator 30.0 08/04/19 20:00 98.4 69 16 181/79 (113) 100 08/04/19 20:00 40 08/04/19 19:44 69 21 40 08/04/19 19:39 68 181/79 (113) 08/04/19 19:03 60 08/04/19 17:34 175/72 08/04/19 16:00 Mechanical Ventilator 30.0 08/04/19 16:00 99.0 61 10 175/72 (106) 100 08/04/19 16:00 40 08/04/19 15:23 52 08/04/19 15:01 156/74 08/04/19 14:54 63 19 40 08/04/19 12:00 40 08/04/19 12:00 Mechanical Ventilator 30.0 08/04/19 12:00 98.4 58 10 156/74 (101) 100 08/04/19 11:56 80 23 100 Mechanical Ventilator 40 79 20 40 08/04/19 11:39 86 Status: awake Condition: critical, grave HEENT: atraumatic Neck: full ROM Heart: HR/BP stable, HR/BP unstable Abdomen: soft, non-tender, feeding tube Extremities: no C/C/E Accucheck: 135 Critical Care - Subjective ROS Limited/Unobtainable: Yes Condition: critical FI02: 40 Vent Support Breath Rate: 10 Vent Support Mode: AC Vent Tidal Volume: 500 Sputum Amount: Moderate PEEP: 5.0 PIP: 24 Tube Feeding Amount: 65 I&O: Intake and Output 08/04/19 08/05/19 19:00 07:00 Intake Total 960 ml 1160 ml Output Total 1200 ml 2000 ml Balance -240 ml -840 ml Intake Free Water 70 ml 50 ml IV Total 110 ml 330 ml Tube Feeding 780 ml 780 ml Output Urine Total 1200 ml 2000 ml CXR: Left > right effusion Labs: Laboratory Tests Test 08/05/19 03:05 White Blood Count 11.6 K/UL (4.8-10.8) H Red Blood Count 3.47 M/UL (4.70-6.10) L Hemoglobin 9.2 G/DL (14.2-18.0) L Hematocrit 28.3 % (42.0-52.0) L Mean Corpuscular Volume 82 FL (80-99) Mean Corpuscular Hemoglobin 26.4 PG (27.0-31.0) L Mean Corpuscular Hemoglobin Concent 32.4 G/DL (32.0-36.0) Red Cell Distribution Width 15.5 % (11.6-14.8) H Platelet Count 233 K/UL (150-450) Mean Platelet Volume 6.9 FL (6.5-10.1) Neutrophils (%) (Auto) 68.4 % (45.0-75.0) Lymphocytes (%) (Auto) 21.1 % (20.0-45.0) Monocytes (%) (Auto) 3.2 % (1.0-10.0) Eosinophils (%) (Auto) 6.9 % (0.0-3.0) H Basophils (%) (Auto) 0.5 % (0.0-2.0) Erythrocyte Sedimentation Rate 90 MM/HR (0-20) H Sodium Level 145 MMOL/L (136-145) Potassium Level 4.0 MMOL/L (3.5-5.1) Chloride Level 109 MMOL/L (98-107) H Carbon Dioxide Level 28 MMOL/L (21-32) Anion Gap 9 mmol/L (5-15) Blood Urea Nitrogen 17 mg/dL (7-18) Creatinine 0.8 MG/DL (0.55-1.30) Estimat Glomerular Filtration Rate > 60 mL/min (>60) Glucose Level 115 MG/DL (74-106) H Calcium Level 8.7 MG/DL (8.5-10.1) Phosphorus Level 4.1 MG/DL (2.5-4.9) Magnesium Level 1.8 MG/DL (1.8-2.4) Total Bilirubin 0.1 MG/DL (0.2-1.0) L Aspartate Amino Transf (AST/SGOT) 20 U/L (15-37) Alanine Aminotransferase (ALT/SGPT) 18 U/L (12-78) Alkaline Phosphatase 56 U/L (46-116) C-Reactive Protein, Quantitative 3.6 mg/dL (0.00-0.90) H Pro-B-Type Natriuretic Peptide 2337 pg/mL (0-125) H Total Protein 6.7 G/DL (6.4-8.2) Albumin 2.1 G/DL (3.4-5.0) L Globulin 4.6 g/dL Albumin/Globulin Ratio 0.5 (1.0-2.7) L Yomi Odom MD Aug 05, 2019 11:29
[2019-08-05] MEDS: Colistin for inhalation INH SCH ×2 (11:33→22:56)
--- NOTE | 2019-08-05 11:40 | Surgery Progress Note ---
Surgery Progress Note Subjective Additional Comments no acute events labs noted wbc 11k cellulitis much improved Objective Last 24 Hour Vital Signs Date Time Temp Pulse Resp B/P (MAP) Pulse Ox O2 Delivery O2 Flow Rate FiO2 08/05/19 11:33 60 15 100 Mechanical Ventilator 40 58 16 40 08/05/19 09:54 138/74 08/05/19 08:01 98.2 54 14 138/74 (95) 100 08/05/19 08:00 40 08/05/19 07:29 58 15 40 08/05/19 05:10 152/77 08/05/19 04:00 98.9 60 17 152/77 (102) 100 08/05/19 04:00 40 08/05/19 04:00 Mechanical Ventilator 30.0 08/05/19 03:32 56 08/05/19 03:22 71 20 40 08/05/19 00:00 40 08/05/19 00:00 97.7 59 18 131/60 (83) 100 08/05/19 00:00 Mechanical Ventilator 30.0 08/04/19 23:29 57 08/04/19 22:51 63 18 100 Mechanical Ventilator 40 69 18 40 08/04/19 22:00 148/72 (97) 08/04/19 21:27 127/59 08/04/19 20:00 Mechanical Ventilator 30.0 08/04/19 20:00 98.4 69 16 181/79 (113) 100 08/04/19 20:00 40 08/04/19 19:44 69 21 40 08/04/19 19:39 68 181/79 (113) 08/04/19 19:03 60 08/04/19 17:34 175/72 08/04/19 16:00 Mechanical Ventilator 30.0 08/04/19 16:00 99.0 61 10 175/72 (106) 100 08/04/19 16:00 40 08/04/19 15:23 52 08/04/19 15:01 156/74 08/04/19 14:54 63 19 40 08/04/19 12:00 40 08/04/19 12:00 Mechanical Ventilator 30.0 08/04/19 12:00 98.4 58 10 156/74 (101) 100 08/04/19 11:56 80 23 100 Mechanical Ventilator 40 79 20 40 08/04/19 11:39 86 I&O Intake and Output 08/04/19 08/05/19 19:00 07:00 Intake Total 960 ml 1160 ml Output Total 1200 ml 2000 ml Balance -240 ml -840 ml Intake Free Water 70 ml 50 ml IV Total 110 ml 330 ml Tube Feeding 780 ml 780 ml Output Urine Total 1200 ml 2000 ml Dressing: other Wound: other Drains: other Cardiovascular: RSR Respiratory: decreased breath sounds Abdomen: soft, present bowel sounds, other, non-distended Extremities: edema, no tenderness, no cyanosis, pulses Laboratory Tests Test 08/05/19 03:05 White Blood Count 11.6 K/UL (4.8-10.8) H Red Blood Count 3.47 M/UL (4.70-6.10) L Hemoglobin 9.2 G/DL (14.2-18.0) L Hematocrit 28.3 % (42.0-52.0) L Mean Corpuscular Volume 82 FL (80-99) Mean Corpuscular Hemoglobin 26.4 PG (27.0-31.0) L Mean Corpuscular Hemoglobin Concent 32.4 G/DL (32.0-36.0) Red Cell Distribution Width 15.5 % (11.6-14.8) H Platelet Count 233 K/UL (150-450) Mean Platelet Volume 6.9 FL (6.5-10.1) Neutrophils (%) (Auto) 68.4 % (45.0-75.0) Lymphocytes (%) (Auto) 21.1 % (20.0-45.0) Monocytes (%) (Auto) 3.2 % (1.0-10.0) Eosinophils (%) (Auto) 6.9 % (0.0-3.0) H Basophils (%) (Auto) 0.5 % (0.0-2.0) Erythrocyte Sedimentation Rate 90 MM/HR (0-20) H Sodium Level 145 MMOL/L (136-145) Potassium Level 4.0 MMOL/L (3.5-5.1) Chloride Level 109 MMOL/L (98-107) H Carbon Dioxide Level 28 MMOL/L (21-32) Anion Gap 9 mmol/L (5-15) Blood Urea Nitrogen 17 mg/dL (7-18) Creatinine 0.8 MG/DL (0.55-1.30) Estimat Glomerular Filtration Rate > 60 mL/min (>60) Glucose Level 115 MG/DL (74-106) H Calcium Level 8.7 MG/DL (8.5-10.1) Phosphorus Level 4.1 MG/DL (2.5-4.9) Magnesium Level 1.8 MG/DL (1.8-2.4) Total Bilirubin 0.1 MG/DL (0.2-1.0) L Aspartate Amino Transf (AST/SGOT) 20 U/L (15-37) Alanine Aminotransferase (ALT/SGPT) 18 U/L (12-78) Alkaline Phosphatase 56 U/L (46-116) C-Reactive Protein, Quantitative 3.6 mg/dL (0.00-0.90) H Pro-B-Type Natriuretic Peptide 2337 pg/mL (0-125) H Total Protein 6.7 G/DL (6.4-8.2) Albumin 2.1 G/DL (3.4-5.0) L Globulin 4.6 g/dL Albumin/Globulin Ratio 0.5 (1.0-2.7) L Plan Problems: (1) Cellulitis of right upper extremity Assessment & Plan: This is a 69-year-old male with fevers, leukocytosis, abnormal labs, right elbow cellulitis identified upper extremity. There is significant erythema edema without drainage or fluctuance. The edema is pitting and the right upper extremity does have a contracture at the level of the elbow. With gentle manipulation can slowly begin to straighten the elbow but does have overall limited movement. Plain films identified no fractures noted. No history of fall. No trauma identifiable on examination. Though this could potentially be a infectious process looks inflammatory in nature potentially dependent edema versus venous congestion. Ultrasound upper extremity will be ordered. Pillow to be placed underneath the axilla and to help elevate the elbow. Pillow placed in between the elbow to allow for some decompression. Will monitor skin closely as edema worsening and could breakdown. 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 Historical scar with hyperpigmentation Sacrum . Area of non-blanching erythema also noted at previously injured site. Base of scrotum is erythematous with partial thickness shearing. Generalized Maculopapular red rash noted. Cleanse GT site with Soap and tepid water. Apply Zinc Oxide Paste to GT site Three times daily. Apply Moisture Barrier Paste to Buttocks . Cover with Optifoam drsg. Change every 3 days and prn. Apply Moisture Barrier Paste to Scrotum with each Incontinence care. Reposition at least every 2hours or as tolerated. Off-load heels with Pillow. DAILY ESTIMATED NEEDS: Needs based on DM, critical care 68kg abw 22-28 kcals/kg 8685-7057 total kcals 1.2-2 g protein/kg 81-136 g total protein 25-30 mL/kg 7551-8298 total fluid mLs NUTRITION DIAGNOSIS: 1) Swallowing difficulty r/t respiratory status as evidenced by pt is vent dep via trach, on GT feeds CURRENT TF: Glucerna 1.2 @ 65ml/hr x 20 hrs ENTERAL NUTRITION RECOMMENDATIONS: Glucerna 1.2 @ 65ml/hr x 20 hrs to provide 1300ml, 1560kcal, 78g prot, 1046ml free water - Maintain current TF as ordered - Once in stock, add prosource 1 pack QD for additional 11g prot to better meet est needs - HOB over 30 degrees/ water flush 170ml q 6hrs For continuous run x 24 hrs, rec Glucerna 1.2 @ 55ml/hr x 24 hrs to provide 1320ml, 1584kcal, 79g prot, 1063ml free water ADDITIONAL RECOMMENDATIONS: (1) Per SNF: HT=66" HN=[id number] (June 2019) (2) Monitor lytes closely, replete as needed (low phos) (3) Skin integrity: add Shoaib BID via PEG TF @ goal will provide 100% RDI Jaden Doshi Aug 05, 2019 11:40
--- NOTE | 2019-08-05 12:00 | NUR ---
NURSE NOTES: Pt with large BM to liquid dark brown stools,kept dry and clean.
[2019-08-05] MEDS: Vancomycin 500mg/D5W 110ml IVPB SCH ×2 (12:05)
--- NOTE | 2019-08-05 13:42 | Infectious Diseases Prog Note ---
Assessment/Plan Assessment/Plan Assessment: Sepsis Probable PNA- COVID19 neg x2 (resident from SNF with large outbreak) -08/03 CXR: Left pleural effusion, bilateral left greater than right interstitial congestion persists. -08/01 CXR: Large left pleural effusion, possible hazy mid and lower lung infiltrates and atelectasis persist, unchanged. Right lung pleural space remain clear. -07/26 CXR: Left lung infiltrates and effusion unchanged. -07/25 sp cx MDR ABC (S colistin/polymixin B; suspect colonizer), P. mirabilis, probable AMp-C (S Cefepime, Zosyn, Meropenem) -CXR: Retrocardiac atelectasis with possible tiny left pleural effusion, correlate to exclude pneumonia.Cardiomegaly. Low lung volumes with bronchovascular crowding. -07/24 SARS-Cov2 PCR neg R elbow cellulitis- improving -xray elbow: : Limited and essentially nondiagnostic. No definite acute abnormality -V. 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 Will continue to follow along with you. Discussed with RN Subjective Allergies: Coded Allergies: No Known Allergies (Unverified , 05/27/18) Subjective afebrile mild leukocytosis resolved cellulitis improving Objective Vital Signs Last 24 Hour Vital Signs Date Time Temp Pulse Resp B/P (MAP) Pulse Ox O2 Delivery O2 Flow Rate FiO2 08/05/19 12:00 40 08/05/19 12:00 98.2 60 14 154/74 (100) 100 08/05/19 12:00 Mechanical Ventilator 30.0 08/05/19 11:33 60 15 100 Mechanical Ventilator 40 58 16 40 08/05/19 09:54 138/74 08/05/19 08:01 98.2 54 14 138/74 (95) 100 08/05/19 08:00 55 08/05/19 08:00 Mechanical Ventilator 30.0 08/05/19 08:00 40 08/05/19 07:29 58 15 40 08/05/19 05:10 152/77 08/05/19 04:00 98.9 60 17 152/77 (102) 100 08/05/19 04:00 40 08/05/19 04:00 Mechanical Ventilator 30.0 08/05/19 03:32 56 08/05/19 03:22 71 20 40 08/05/19 00:00 40 08/05/19 00:00 97.7 59 18 131/60 (83) 100 08/05/19 00:00 Mechanical Ventilator 30.0 08/04/19 23:29 57 08/04/19 22:51 63 18 100 Mechanical Ventilator 40 69 18 40 08/04/19 22:00 148/72 (97) 08/04/19 21:27 127/59 08/04/19 20:00 Mechanical Ventilator 30.0 08/04/19 20:00 98.4 69 16 181/79 (113) 100 08/04/19 20:00 40 08/04/19 19:44 69 21 40 08/04/19 19:39 68 181/79 (113) 08/04/19 19:03 60 08/04/19 17:34 175/72 08/04/19 16:00 Mechanical Ventilator 30.0 08/04/19 16:00 99.0 61 10 175/72 (106) 100 08/04/19 16:00 40 08/04/19 15:23 52 08/04/19 15:01 156/74 08/04/19 14:54 63 19 40 Height (Feet): 5 Height (Inches): 8.00 Weight (Pounds): 215 Objective Gen: chornically ill, no distress HEENT: trach in place, EOMI Lungs: no tachypnea, no use of accessory muscles Abd: no distended Ext: R elbow redness and swelling improving Laboratory Tests Test 08/05/19 03:05 08/05/19 12:05 White Blood Count 11.6 K/UL (4.8-10.8) H Red Blood Count 3.47 M/UL (4.70-6.10) L Hemoglobin 9.2 G/DL (14.2-18.0) L Hematocrit 28.3 % (42.0-52.0) L Mean Corpuscular Volume 82 FL (80-99) Mean Corpuscular Hemoglobin 26.4 PG (27.0-31.0) L Mean Corpuscular Hemoglobin Concent 32.4 G/DL (32.0-36.0) Red Cell Distribution Width 15.5 % (11.6-14.8) H Platelet Count 233 K/UL (150-450) Mean Platelet Volume 6.9 FL (6.5-10.1) Neutrophils (%) (Auto) 68.4 % (45.0-75.0) Lymphocytes (%) (Auto) 21.1 % (20.0-45.0) Monocytes (%) (Auto) 3.2 % (1.0-10.0) Eosinophils (%) (Auto) 6.9 % (0.0-3.0) H Basophils (%) (Auto) 0.5 % (0.0-2.0) Erythrocyte Sedimentation Rate 90 MM/HR (0-20) H Sodium Level 145 MMOL/L (136-145) Potassium Level 4.0 MMOL/L (3.5-5.1) Chloride Level 109 MMOL/L (98-107) H Carbon Dioxide Level 28 MMOL/L (21-32) Anion Gap 9 mmol/L (5-15) Blood Urea Nitrogen 17 mg/dL (7-18) Creatinine 0.8 MG/DL (0.55-1.30) Estimat Glomerular Filtration Rate > 60 mL/min (>60) Glucose Level 115 MG/DL (74-106) H Calcium Level 8.7 MG/DL (8.5-10.1) Phosphorus Level 4.1 MG/DL (2.5-4.9) Magnesium Level 1.8 MG/DL (1.8-2.4) Total Bilirubin 0.1 MG/DL (0.2-1.0) L Aspartate Amino Transf (AST/SGOT) 20 U/L (15-37) Alanine Aminotransferase (ALT/SGPT) 18 U/L (12-78) Alkaline Phosphatase 56 U/L (46-116) C-Reactive Protein, Quantitative 3.6 mg/dL (0.00-0.90) H Pro-B-Type Natriuretic Peptide 2337 pg/mL (0-125) H Total Protein 6.7 G/DL (6.4-8.2) Albumin 2.1 G/DL (3.4-5.0) L Globulin 4.6 g/dL Albumin/Globulin Ratio 0.5 (1.0-2.7) L Prothrombin Time 11.1 SEC (9.30-11.50) Prothromb Time International Ratio 1.0 (0.9-1.1) Activated Partial Thromboplast Time 29 SEC (23-33) Current Medications Medications (Trade) Dose Ordered Sig/Bhupinder Route PRN Reason Start Time Stop Time Status Last Admin Dose Admin Acetaminophen (Tylenol) 650 mg Q4H PRN GT fever and mild pain 07/26/19 16:30 08/25/19 16:29 08/03/19 05:08 Albuterol Sulfate (Proventil MDI) 2 puff Q3H PRN INH Shortness of Breath 07/26/19 16:30 10/24/19 16:29 Ascorbic Acid (Vitamin C) 500 mg DAILY GT 07/27/19 09:00 08/26/19 08:59 08/05/19 09:55 Atorvastatin Calcium (Lipitor) 10 mg BEDTIME GT 07/26/19 21:00 10/24/19 20:59 08/04/19 20:02 Cefepime HCl 1 gm/ Dextrose 55 ml @ 110 mls/hr EVERY 8 HOURS IVPB 07/30/19 22:00 08/06/19 21:59 08/05/19 05:09 Chlorhexidine Gluconate (Jasmin-Hex 2%) 1 applic DAILY@1999 TOPIC 07/26/19 20:00 10/24/19 19:59 08/04/19 19:39 Colistimethate Sodium (Colistin *inhalation use only*) 75 mg Q12HR@10,22 INH 08/01/19 10:30 08/08/19 10:29 08/05/19 11:33 Dextrose (Dextrose 50%) 25 ml Q30M PRN IV Hypoglycemia 07/26/19 16:30 10/24/19 16:29 Dextrose (Dextrose 50%) 50 ml Q30M PRN IV Hypoglycemia 07/26/19 16:30 10/24/19 16:29 Docusate Sodium (Colace) 100 mg DAILY GT 07/27/19 09:00 08/26/19 08:59 08/05/19 09:52 Ferrous Sulfate (Feosol) 325 mg DAILY GT 07/27/19 09:00 10/25/19 08:59 08/05/19 09:52 Furosemide (Lasix) 40 mg DAILY IV 08/05/19 00:00 09/04/19 00:00 08/05/19 09:57 Glimepiride (AmaryL) 4 mg BID GT 07/26/19 18:00 08/25/19 17:59 08/05/19 09:52 Heparin Sodium (Porcine) (Heparin 5000 units/ml) 5,000 units EVERY 12 HOURS SUBQ 07/26/19 09:00 09/09/19 08:59 08/05/19 09:59 Hydralazine HCl (Apresoline) 50 mg Q6H PRN GT SBP above 150 08/04/19 15:00 10/30/19 14:59 08/04/19 17:34 Hydralazine HCl (Apresoline) 100 mg EVERY 8 HOURS GT 07/30/19 06:00 10/24/19 21:59 08/05/19 05:10 Insulin Aspart (NovoLOG) Q6HR SUBQ 07/26/19 18:00 10/24/19 16:29 08/02/19 11:44 Levetiracetam (Keppra) 1,500 mg DAILY GT 07/27/19 09:00 08/26/19 08:59 08/05/19 09:54 Lisinopril (PriniviL) 40 mg DAILY GT 07/27/19 09:00 08/26/19 08:59 08/05/19 09:54 Metformin HCl (Glucophage) 1,000 mg BID ORAL 07/26/19 18:00 08/25/19 17:59 08/05/19 09:56 Ondansetron HCl (Zofran) 4 mg Q4H PRN GT Nausea & Vomiting 07/26/19 16:30 08/25/19 16:29 Pantoprazole (Protonix) 40 mg EVERY 12 HOURS IVP 07/26/19 09:00 08/25/19 08:59 08/05/19 09:57 Potassium Chloride (K-Dur) 40 meq TWICE A DAY GT 07/27/19 18:00 10/25/19 17:59 08/05/19 09:53 Topiramate (Topamax) 200 mg BID GT 07/26/19 18:00 08/25/19 17:59 08/05/19 09:55 Vancomycin HCl (Vanco pharmacy to dose) 1 ea DAILY PRN MISC rx protocol 07/31/19 15:15 08/30/19 15:14 Vancomycin HCl 500 mg/Dextrose 110 ml @ 110 mls/hr Q12H IVPB 08/03/19 00:00 08/08/19 00:00 08/05/19 12:05 Vitamin D (Vitamin D) 5,000 intlu DAILY GT 07/26/19 09:00 08/25/19 08:59 08/05/19 09:56 Zinc Oxide (Zinc Oxide) 1 applic THREE TIMES A DAY PRN TOPIC REDNESS 07/26/19 12:45 10/24/19 12:44 Consuelo Zambrano M.D. Aug 05, 2019 13:42
--- NOTE | 2019-08-05 15:00 | NUR ---
NURSE NOTES: Call placed to davida Bruce,will need consent for US guided Thoracentesis,message left on the answering machine.
--- NOTE | 2019-08-05 17:30 | NUR ---
NURSE NOTES: Pt stable,no change in pt's status.
--- NOTE | 2019-08-05 19:30 | NUR ---
HAND-OFF: Report given to Ivy Sanchez RN.
--- NOTE | 2019-08-05 19:40 | NUR ---
NURSE NOTES: Received pt from Ulises Isidro RN. pt observed in bed, obtunded, unable to make needs known; no s/sx of pain noted at this time. trach to vent settings are as follows: Portex: 7, AC: 10, VT: 500, FiO2: 40%, PEEP: 5. tolerating well, saturation: 100%; no s/sx of respiratory distress noted at this time. G-tube site is patent and intact, running Glucerna 1.2 at 65 cc/hr. HOB elevated to 30 degrees, no residual noted. F/C is patent and intact, draining well to gravity. ANGELES PICC line is patent and intact, asymptomatic. dressing dry and intact. bed in lowest position and locked, padded siderails up X3, all needs attended to. will continue to monitor.
[2019-08-05] MEDS: Dyna-Hex 2% Top Sol 2oz TOPIC SCH (20:37)
--- NOTE | 2019-08-05 20:41 | NUR ---
NURSE NOTES: Patient for possible thoracentesis tomorrow
[2019-08-06] VITALS: BP 158/80
[2019-08-06] MEDS: Vancomycin 500mg/D5W 110ml IVPB SCH ×4 (00:17→12:28)
[2019-08-06] MEDS: HydrALAZINE 50mg tab GT PRN (00:34)
--- NOTE | 2019-08-06 00:35 | NUR ---
NURSE NOTES: administered PRN hydralazine as prescribed per MD d/t BP of 158/70. will continue to monitor.
--- NOTE | 2019-08-06 01:00 | Progress Note ---
DATE: 08/05/2019 SUBJECTIVE: The patient is afebrile and hemodynamically stable. His eyes are open and there is eye contact and the patient tracks at least for a second or two. PHYSICAL EXAMINATION: VITAL SIGNS: Blood pressure is 154/74, his pulse is 62, respirations are 15, temperature 98.4. HEENT: Eyes were normal. ENT, mucous membranes were moist and intact. NECK: Supple with no JVD without lymph nodes. Tracheostomy site is clean. LUNGS: Clear without rhonchi, rales, or wheezing. HEART: Normal sounds with regular beats. ABDOMEN: Soft, nontender with normal bowel sounds. Gastrostomy site is clean. EXTREMITIES: Warm without cyanosis, clubbing, or edema. LABORATORY DATA: Hemoglobin is 9.2, hematocrit 28.3 with MCV of 82, WBC 11.6, and platelets 273. BUN and creatinine are 17 and 0.8 respectively. Sodium is 145, potassium 4.8, chloride 109, CO2 is 28. Chest x-ray today showed left pleural effusion, left greater than right congestion unchanged for the last few days. IMPRESSION: The patient has been assessed by the medical records supervisor today. The assessment of the medical records supervisor was there was no indication for pacemaker. The patient's heart rate has substantially increased, and a decision to tap the pleural effusion has been done today. will be done in a.m. Repeat laboratory tests will be done in a.m. as well. Janette Weaver M.D. DR: BRYNN JOB#: [id number] CC:
[2019-08-06 04:00] VITALS: BP 172/76
--- NOTE | 2019-08-06 04:00 | NUR ---
NURSE NOTES: CHG bath provided. new gown and linens applied. oral care provided. pt tolerated well. no s/sx of acute distress noted. will continue to monitor.
--- NOTE | 2019-08-06 05:20 | NUR ---
RESPIRATORY NOTE: PT REMAINED STABLE ON CMV WITH CURRENT SETTINGS. SXN PRN. AIRWAY IS SECURE AND PATENT. VENT CIRCUIT IS SECURE AND OUT OF THE WAY. NO S/S OF RESPIRATORY DISTRESS NOTED AT THIS TIME.
[2019-08-06] MEDS: NovoLOG Insulin Flexpen SUBQ SCH ×4 (05:29→17:52)
[2019-08-06] MEDS: Cefepime HCl 1 GM in D5W 55 ML IVPB SCH ×2 (05:31→15:37)
[2019-08-06] MEDS: HydrALAZINE 50mg tab GT SCH ×3 (05:31→21:12)
[2019-08-06 05:47] LABS: BASOPHILS % (AUTO) 0.8 % (0.0-2.0); EOSINOPHILS % (AUTO) 5.2 % (0.0-3.0); HEMATOCRIT 30.2 % (42.0-52.0); HEMOGLOBIN 9.3 G/DL (14.2-18.0); LYMPHOCYTES % (AUTO) 18.9 % (20.0-45.0); MEAN CORPUSCULAR VOLUME 87 FL (80-99); MONOCYTES % (AUTO) 6.2 % (1.0-10.0); NEUTROPHILS % (AUTO) 68.9 % (45.0-75.0); PLATELET COUNT 213 K/UL (150-450); RED BLOOD COUNT 3.46 M/UL (4.70-6.10); RED CELL DISTRIBUTION WIDTH 15.4 % (11.6-14.8); WHITE BLOOD COUNT 11.8 K/UL (4.8-10.8)
[2019-08-06 06:01] LABS: ALANINE AMINOTRANSFERASE 13 U/L (12-78); ALBUMIN 2.3 G/DL (3.4-5.0); ALBUMIN/GLOBULIN RATIO 0.5 (1.0-2.7); ALKALINE PHOSPHATASE 55 U/L (46-116); ANION GAP 11 mmol/L (5-15); ASPARTATE AMINO TRANSFERASE 17 U/L (15-37); BILIRUBIN,TOTAL 0.3 MG/DL (0.2-1.0); BLOOD UREA NITROGEN 19 mg/dL (7-18); CALCIUM 8.7 MG/DL (8.5-10.1); CARBON DIOXIDE 27 MMOL/L (21-32); CHLORIDE 108 MMOL/L (98-107); CREATININE 0.9 MG/DL (0.55-1.30); POTASSIUM 3.8 MMOL/L (3.5-5.1); SODIUM 146 MMOL/L (136-145)
--- NOTE | 2019-08-06 06:15 | NUR ---
NURSE NOTES: called and l/m for Teo Albright in an attempt to obtain consent for scheduled thoracentesis. awaiting call back. Addendum: 08/06/19 at 0801 by JUAN LEMA RN RN called and left message for Teoadin Albright in an attempt to obtain consent for scheduled thoracentesis. awaiting call back.
--- NOTE | 2019-08-06 06:23 | NUR ---
NURSE NOTES: attempted to obtain consent for scheduled thoracentesis from Boby Monique. per Boby Monique, he "does not want to be bothered with any of this" and "only wants to be informed if [the patient] dies."
--- NOTE | 2019-08-06 07:15 | Progress Note ---
DATE: 08/05/2019 CARDIOLOGY PROGRESS NOTE SUBJECTIVE: The patient continues on a ventilator support. No significant bradycardia. Blood pressure parameters in the high normal range. Remains on ventilator support. PHYSICAL EXAMINATION: LUNGS: Bilateral breath sounds. CARDIOVASCULAR: Regular rhythm and rate. Normal S1, S2. ABDOMEN: Soft. EXTREMITIES: No edema. IMPRESSION: 1. Respiratory failure. 2. Healthcare-associated pneumonia. 3. Type 2 diabetes mellitus. 4. Hypertensive heart disease with rising blood pressure. 5. Chronic diastolic congestive heart failure. 6. Vegetative state. 7. Ventilator dependent. 8. Sinus node disease with asymptomatic bradycardia. PLAN: No indication for pacemaker. The patient is bedridden, avoiding all drugs with negative chronotropic potential. Titrating antihypertensive therapy as needed. Periodic diuresis based on clinical parameters. Otto Condon M.D. DR: BEVERLY JOB#: [id number] CC:
--- NOTE | 2019-08-06 07:45 | NUR ---
HAND-OFF: Report given to Ulises Isidro RN. endorsed plan of care.
--- NOTE | 2019-08-06 07:50 | NUR ---
NURSE NOTES: Report received from Ivy Sanchez RNPt resting in bed asleep noted no resp distress,with trach tube to vent,ordered vent settings tolerated,no signs of pain or discomfort,S-B ist degree HB,GTF Glucerna 1.2 at 65ml/hr x 20 hrs,turned off at this time for 4 hrs, no residual noted,Crow cath draining yellow urine,skin warm and dry ,,pt very contracted,ANGELES PICC line intact SR up x2 HOB elevated,bed lock in lowest position,will continue with plans of care.
[2019-08-06 08:00] VITALS: BP_SYST 169; BP_DIAS 76; BP_DIAS 78
--- NOTE | 2019-08-06 08:00 | NUR ---
NURSE NOTES: Called family member,Teo tran,for consent for US guided Thoracentesis,,left message on answering machine still awaiting return of call.
--- NOTE | 2019-08-06 08:36 | NUR ---
MANAGER FOOD SAFETY NOTE SW received a consult for POA document. SW previously spoke w/ pt's brother, Boby Monique that he is not going to make any decision as he is not the next of kin. SW attempted to call Teo Albright [phone] (goes straight to voicemail), (no answer, no vm option), (no answer, no voicemail option) SW attempted to call Chloé Monique [phone] but incorrect number. SW spoke w/ pt's ex- Lyssa Bower [phone], stating she does not have contact numbers of Chloé Monique or Teo Albright. Per Lyssa, Chloé Kayden provided her number to the facility as the emergency contact. Lyssa is willing to help/assist if needed. Lyssa was aware of pt's condition that he has not responsive for years. This SW is unable to reach pt's next of kin at this time. Pt's brother declined to be involved in pt's tx/care. Addendum: 08/06/19 at 1301 by LETY LONDON Two MDs document the medical necessity of such procedure or request pt's ex-, Zeny who is the only person who can be reached at this time.
[2019-08-06] MEDS: Docusate 100mg/10ml Liq GT SCH (08:47)
[2019-08-06] MEDS: Ferrous Sulfate 300 MG/5 ML UDC GT SCH (08:48)
[2019-08-06] MEDS: Pantoprazole Inj IVP SCH ×2 (08:48→21:11)
[2019-08-06] MEDS: metFORMIN 500mg tab ORAL SCH ×2 (08:49→17:49)
[2019-08-06] MEDS: levETIRAcetam 500mg/5ml Liquid GT SCH (08:49)
[2019-08-06] MEDS: Vitamin D 1000 IU Tab GT SCH (08:49)
[2019-08-06] MEDS: Ascorbic Acid 500mg tab GT SCH (08:50)
[2019-08-06] MEDS: Glimepiride 4mg tab GT SCH ×2 (08:50→17:49)
[2019-08-06] MEDS: Topiramate 100mg tab GT SCH ×2 (08:51→17:50)
[2019-08-06] MEDS: Lisinopril 20mg tab GT SCH (08:51)
[2019-08-06] MEDS: Heparin 5000 units/ml inj SUBQ SCH ×2 (08:57→21:00)
[2019-08-06] MEDS: Colistin for inhalation INH SCH ×2 (11:00→22:27)
--- NOTE | 2019-08-06 11:00 | NUR ---
NURSE NOTES: Dr Odom at bedside,informed re family not returning call for trhe consent,Dr Odom signed the consent.
--- NOTE | 2019-08-06 11:09 | NUR ---
CASE MANAGEMENT: REVIEW 08/06/2019 SI:SEPSIS. A/C RESP FAILURE VS: T 98.2 HR 63 RR 17 B/P 169/78 SATS 99% ON MECH VENT FIO2 40 LABS: WBC 11.8 NA 146 CL 108 BUN 19 GLU 131 IS:HYDRALAZINE GT Q8H CEFEPIME IV Q8H KDUR GT BID LIPITOR GT QHS AMARYL GT BID KEPPRA GT QD LISINOPRIL GT QD LASIX IV QD VANCO IV Q12H INSULIN ASPART SUBQ Q6H SDU
--- NOTE | 2019-08-06 11:18 | NUR ---
CASE MANAGEMENT: NOTE ORDER NOTED FOR HEALTH CARE POA. NO FAMILY INVOLVEMENT (SEE SSW NOTE) NURSING UPDATED. DR MOISE PRESENT AT STATION. NURSING TO UPDATE MD MOISE DC ORDER PLACED IN CM CONSULT ORDER 08/03 PT IS FOR THORACENTESIS TODAY (SEE CXR 08/03) DCP: [facility] Addendum: 08/06/19 at 1402 by Zehra Mehta CM THORACENTESIS CONSENT PENDING ONE MORE SIGNATURE IF PATIENT IS STABLE FOR DISCHARGE AFTER PT HAS A ROOM AT [facility] 23
--- NOTE | 2019-08-06 11:29 | Pulmonolgy Critical Care Note ---
Critical Care - Asmt/Plan Problems: (1) Nosocomial pneumonia (2) Pleural effusion (3) Severe sepsis (4) Chronic respiratory failure (5) Severe anemia (6) Cellulitis of right upper extremity (7) Tracheostomy dependence (8) Contracture of joint of multiple sites (9) Diabetes mellitus (10) Vegetative state (11) Cerebrovascular accident (CVA) Respiratory: monitor respiratory rate, adjust FIO2 Cardiac: continue pressors, continue to monitor HR/BP Renal: F/U I&O Infectious Disease: check cultures, continue antibiotics Endocrine: monitor blood sugar, continue sliding scale insulin Hematologic: monitor H/H, transfuse if hgb<8.5 Neurologic: PRN Ativan, keep patient comfortable Prophylaxis: Protonix Disposition: keep in ICU Notes Reviewed: fiscal economist, cardio, renal Discussed with: nurses, rn case mgr - Patient has increasing Left effusion, WBC is elevated. Pt needs thoracentesis. There are no family members available to consent. Critical Care - Objective Last 24 Hour Vital Signs Date Time Temp Pulse Resp B/P (MAP) Pulse Ox O2 Delivery O2 Flow Rate FiO2 08/06/19 08:51 169/78 08/06/19 08:00 60 08/06/19 08:00 98.2 63 17 169/78 (108) 100 08/06/19 08:00 98.2 63 17 169/76 (107) 99 08/06/19 08:00 40 08/06/19 07:10 64 15 40 08/06/19 05:31 172/76 08/06/19 05:20 63 15 40 08/06/19 04:00 40 08/06/19 04:00 Mechanical Ventilator 30.0 08/06/19 04:00 98.2 70 19 172/76 (108) 99 08/06/19 03:58 90 08/06/19 03:25 62 16 40 08/06/19 01:00 61 18 40 08/06/19 00:34 158/80 08/06/19 00:00 Mechanical Ventilator 30.0 08/06/19 00:00 98.1 61 16 158/80 (106) 99 08/06/19 00:00 63 08/06/19 00:00 40 08/05/19 22:53 59 18 99 Mechanical Ventilator 40 66 18 08/05/19 22:04 157/71 08/05/19 20:46 63 18 40 08/05/19 20:00 98.2 59 15 157/71 (99) 100 08/05/19 20:00 40 08/05/19 20:00 Mechanical Ventilator 30.0 08/05/19 19:26 60 08/05/19 19:20 60 16 40 08/05/19 16:00 Mechanical Ventilator 30.0 08/05/19 16:00 40 08/05/19 16:00 98.4 62 15 167/76 (106) 100 08/05/19 16:00 66 08/05/19 14:09 154/74 08/05/19 12:00 40 08/05/19 12:00 98.2 60 14 154/74 (100) 100 08/05/19 12:00 Mechanical Ventilator 30.0 08/05/19 11:56 60 08/05/19 11:33 60 15 100 Mechanical Ventilator 40 58 16 40 Status: awake Condition: critical HEENT: atraumatic, normocephalic Neck: trach Lungs: rales, rhonchi Heart: HR/BP stable Abdomen: soft, non-tender, active bowel sounds, feeding tube Extremities: no C/C/E Accucheck: 144 Critical Care - Subjective ROS Limited/Unobtainable: Yes Condition: critical EKG Rhythm: Sinus Rhythm FI02: 40 Vent Support Breath Rate: 10 Vent Support Mode: AC Vent Tidal Volume: 500 Sputum Amount: Moderate PEEP: 5.0 PIP: 28 Tube Feeding Amount: 65 I&O: Intake and Output 08/05/19 08/06/19 19:00 07:00 Intake Total 775 ml 1035 ml Output Total 2200 ml 900 ml Balance -1425 ml 135 ml Intake Free Water 200 ml 100 ml IV Total 220 ml Tube Feeding 455 ml 715 ml Other 120 ml Output Urine Total 2200 ml 900 ml # Bowel Movements 2 Labs: Laboratory Tests Test 08/05/19 12:05 08/06/19 03:05 Prothrombin Time 11.1 SEC (9.30-11.50) Prothromb Time International Ratio 1.0 (0.9-1.1) Activated Partial Thromboplast Time 29 SEC (23-33) White Blood Count 11.8 K/UL (4.8-10.8) H Red Blood Count 3.46 M/UL (4.70-6.10) L Hemoglobin 9.3 G/DL (14.2-18.0) L Hematocrit 30.2 % (42.0-52.0) L Mean Corpuscular Volume 87 FL (80-99) Mean Corpuscular Hemoglobin 27.0 PG (27.0-31.0) Mean Corpuscular Hemoglobin Concent 31.0 G/DL (32.0-36.0) L Red Cell Distribution Width 15.4 % (11.6-14.8) H Platelet Count 213 K/UL (150-450) Mean Platelet Volume 7.8 FL (6.5-10.1) Neutrophils (%) (Auto) 68.9 % (45.0-75.0) Lymphocytes (%) (Auto) 18.9 % (20.0-45.0) L Monocytes (%) (Auto) 6.2 % (1.0-10.0) Eosinophils (%) (Auto) 5.2 % (0.0-3.0) H Basophils (%) (Auto) 0.8 % (0.0-2.0) Sodium Level 146 MMOL/L (136-145) H Potassium Level 3.8 MMOL/L (3.5-5.1) Chloride Level 108 MMOL/L (98-107) H Carbon Dioxide Level 27 MMOL/L (21-32) Anion Gap 11 mmol/L (5-15) Blood Urea Nitrogen 19 mg/dL (7-18) H Creatinine 0.9 MG/DL (0.55-1.30) Estimat Glomerular Filtration Rate > 60 mL/min (>60) Glucose Level 131 MG/DL (74-106) H Calcium Level 8.7 MG/DL (8.5-10.1) Total Bilirubin 0.3 MG/DL (0.2-1.0) Aspartate Amino Transf (AST/SGOT) 17 U/L (15-37) Alanine Aminotransferase (ALT/SGPT) 13 U/L (12-78) Alkaline Phosphatase 55 U/L (46-116) Total Protein 6.9 G/DL (6.4-8.2) Albumin 2.3 G/DL (3.4-5.0) L Globulin 4.6 g/dL Albumin/Globulin Ratio 0.5 (1.0-2.7) L Yomi Odom MD Aug 06, 2019 11:29
[2019-08-06 12:00] VITALS: BP 168/73
--- NOTE | 2019-08-06 13:42 | Infectious Diseases Prog Note ---
Assessment/Plan Assessment/Plan Assessment: Sepsis Probable PNA- COVID19 neg x2 (resident from SNF with large outbreak) -08/03 CXR: Left pleural effusion, bilateral left greater than right interstitial congestion persists. -08/01 CXR: Large left pleural effusion, possible hazy mid and lower lung infiltrates and atelectasis persist, unchanged. Right lung pleural space remain clear. -07/26 CXR: Left lung infiltrates and effusion unchanged. -07/25 sp cx MDR ABC (S colistin/polymixin B; suspect colonizer), P. mirabilis, probable AMp-C (S Cefepime, Zosyn, Meropenem) -CXR: Retrocardiac atelectasis with possible tiny left pleural effusion, correlate to exclude pneumonia.Cardiomegaly. Low lung volumes with bronchovascular crowding. -07/24 SARS-Cov2 PCR neg R elbow cellulitis- improving -xray elbow: : Limited and essentially nondiagnostic. No definite acute abnormality -V. 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 Will continue to follow along with you. Discussed with RN Subjective Allergies: Coded Allergies: No Known Allergies (Unverified , 05/27/18) Subjective afebrile mild leukocytosis resolved cellulitis improving Objective Vital Signs Last 24 Hour Vital Signs Date Time Temp Pulse Resp B/P (MAP) Pulse Ox O2 Delivery O2 Flow Rate FiO2 08/06/19 12:16 40 08/06/19 12:00 Mechanical Ventilator 30.0 08/06/19 11:33 62 08/06/19 11:10 89 22 99 Mechanical Ventilator 40 84 22 08/06/19 08:51 169/78 08/06/19 08:00 60 08/06/19 08:00 Mechanical Ventilator 30.0 08/06/19 08:00 98.2 63 17 169/78 (108) 100 08/06/19 08:00 98.2 63 17 169/76 (107) 99 08/06/19 08:00 40 08/06/19 07:10 64 15 40 08/06/19 05:31 172/76 08/06/19 05:20 63 15 40 08/06/19 04:00 40 08/06/19 04:00 Mechanical Ventilator 30.0 08/06/19 04:00 98.2 70 19 172/76 (108) 99 08/06/19 03:58 90 08/06/19 03:25 62 16 40 08/06/19 01:00 61 18 40 08/06/19 00:34 158/80 08/06/19 00:00 Mechanical Ventilator 30.0 08/06/19 00:00 98.1 61 16 158/80 (106) 99 08/06/19 00:00 63 08/06/19 00:00 40 08/05/19 22:53 59 18 99 Mechanical Ventilator 40 66 18 08/05/19 22:04 157/71 08/05/19 20:46 63 18 40 08/05/19 20:00 98.2 59 15 157/71 (99) 100 08/05/19 20:00 40 08/05/19 20:00 Mechanical Ventilator 30.0 08/05/19 19:26 60 08/05/19 19:20 60 16 40 08/05/19 16:00 Mechanical Ventilator 30.0 08/05/19 16:00 40 08/05/19 16:00 98.4 62 15 167/76 (106) 100 08/05/19 16:00 66 08/05/19 14:09 154/74 Height (Feet): 5 Height (Inches): 8.00 Weight (Pounds): 215 Objective Gen: chornically ill, no distress HEENT: trach in place, EOMI Lungs: no tachypnea, no use of accessory muscles Abd: no distended Ext: R elbow redness and swelling improving Laboratory Tests Test 08/06/19 03:05 White Blood Count 11.8 K/UL (4.8-10.8) H Red Blood Count 3.46 M/UL (4.70-6.10) L Hemoglobin 9.3 G/DL (14.2-18.0) L Hematocrit 30.2 % (42.0-52.0) L Mean Corpuscular Volume 87 FL (80-99) Mean Corpuscular Hemoglobin 27.0 PG (27.0-31.0) Mean Corpuscular Hemoglobin Concent 31.0 G/DL (32.0-36.0) L Red Cell Distribution Width 15.4 % (11.6-14.8) H Platelet Count 213 K/UL (150-450) Mean Platelet Volume 7.8 FL (6.5-10.1) Neutrophils (%) (Auto) 68.9 % (45.0-75.0) Lymphocytes (%) (Auto) 18.9 % (20.0-45.0) L Monocytes (%) (Auto) 6.2 % (1.0-10.0) Eosinophils (%) (Auto) 5.2 % (0.0-3.0) H Basophils (%) (Auto) 0.8 % (0.0-2.0) Sodium Level 146 MMOL/L (136-145) H Potassium Level 3.8 MMOL/L (3.5-5.1) Chloride Level 108 MMOL/L (98-107) H Carbon Dioxide Level 27 MMOL/L (21-32) Anion Gap 11 mmol/L (5-15) Blood Urea Nitrogen 19 mg/dL (7-18) H Creatinine 0.9 MG/DL (0.55-1.30) Estimat Glomerular Filtration Rate > 60 mL/min (>60) Glucose Level 131 MG/DL (74-106) H Calcium Level 8.7 MG/DL (8.5-10.1) Total Bilirubin 0.3 MG/DL (0.2-1.0) Aspartate Amino Transf (AST/SGOT) 17 U/L (15-37) Alanine Aminotransferase (ALT/SGPT) 13 U/L (12-78) Alkaline Phosphatase 55 U/L (46-116) Total Protein 6.9 G/DL (6.4-8.2) Albumin 2.3 G/DL (3.4-5.0) L Globulin 4.6 g/dL Albumin/Globulin Ratio 0.5 (1.0-2.7) L Current Medications Medications (Trade) Dose Ordered Sig/Bhupinder Route PRN Reason Start Time Stop Time Status Last Admin Dose Admin Acetaminophen (Tylenol) 650 mg Q4H PRN GT fever and mild pain 07/26/19 16:30 08/25/19 16:29 08/03/19 05:08 Albuterol Sulfate (Proventil MDI) 2 puff Q3H PRN INH Shortness of Breath 07/26/19 16:30 10/24/19 16:29 Ascorbic Acid (Vitamin C) 500 mg DAILY GT 07/27/19 09:00 08/26/19 08:59 08/06/19 08:50 Atorvastatin Calcium (Lipitor) 10 mg BEDTIME GT 07/26/19 21:00 10/24/19 20:59 08/05/19 20:37 Cefepime HCl 1 gm/ Dextrose 55 ml @ 110 mls/hr EVERY 8 HOURS IVPB 07/30/19 22:00 08/06/19 21:59 08/06/19 05:31 Chlorhexidine Gluconate (Jasmin-Hex 2%) 1 applic DAILY@1999 TOPIC 07/26/19 20:00 10/24/19 19:59 08/05/19 20:37 Colistimethate Sodium (Colistin *inhalation use only*) 75 mg Q12HR@10,22 INH 08/01/19 10:30 08/08/19 10:29 08/06/19 11:00 Dextrose (Dextrose 50%) 25 ml Q30M PRN IV Hypoglycemia 07/26/19 16:30 10/24/19 16:29 Dextrose (Dextrose 50%) 50 ml Q30M PRN IV Hypoglycemia 07/26/19 16:30 10/24/19 16:29 Docusate Sodium (Colace) 100 mg DAILY GT 07/27/19 09:00 08/26/19 08:59 08/06/19 08:47 Ferrous Sulfate (Feosol) 325 mg DAILY GT 07/27/19 09:00 8/31/20 08:59 08/06/19 08:48 Furosemide (Lasix) 40 mg DAILY IV 08/05/19 00:00 09/04/19 00:00 08/06/19 08:48 Glimepiride (AmaryL) 4 mg BID GT 07/26/19 18:00 08/25/19 17:59 08/06/19 08:50 Heparin Sodium (Porcine) (Heparin 5000 units/ml) 5,000 units EVERY 12 HOURS SUBQ 07/26/19 09:00 09/09/19 08:59 08/06/19 08:57 Hydralazine HCl (Apresoline) 50 mg Q6H PRN GT SBP above 150 08/04/19 15:00 10/30/19 14:59 08/06/19 00:34 Hydralazine HCl (Apresoline) 100 mg EVERY 8 HOURS GT 07/30/19 06:00 10/24/19 21:59 08/06/19 05:31 Insulin Aspart (NovoLOG) Q6HR SUBQ 07/26/19 18:00 10/24/19 16:29 08/06/19 05:29 Levetiracetam (Keppra) 1,500 mg DAILY GT 07/27/19 09:00 08/26/19 08:59 08/06/19 08:49 Lisinopril (PriniviL) 40 mg DAILY GT 07/27/19 09:00 08/26/19 08:59 08/06/19 08:51 Metformin HCl (Glucophage) 1,000 mg BID ORAL 07/26/19 18:00 08/25/19 17:59 08/06/19 08:49 Ondansetron HCl (Zofran) 4 mg Q4H PRN GT Nausea & Vomiting 07/26/19 16:30 08/25/19 16:29 Pantoprazole (Protonix) 40 mg EVERY 12 HOURS IVP 07/26/19 09:00 08/25/19 08:59 08/06/19 08:48 Potassium Chloride (K-Dur) 40 meq TWICE A DAY GT 07/27/19 18:00 10/25/19 17:59 08/06/19 08:47 Topiramate (Topamax) 200 mg BID GT 07/26/19 18:00 08/25/19 17:59 08/06/19 08:51 Vancomycin HCl (Vanco pharmacy to dose) 1 ea DAILY PRN MISC rx protocol 07/31/19 15:15 08/30/19 15:14 Vancomycin HCl 500 mg/Dextrose 110 ml @ 110 mls/hr Q12H IVPB 08/03/19 00:00 08/08/19 00:00 08/06/19 12:28 Vitamin D (Vitamin D) 5,000 intlu DAILY GT 07/26/19 09:00 08/25/19 08:59 08/06/19 08:49 Zinc Oxide (Zinc Oxide) 1 applic THREE TIMES A DAY PRN TOPIC REDNESS 07/26/19 12:45 10/24/19 12:44 Consuelo Zambrano M.D. Aug 06, 2019 13:42
--- NOTE | 2019-08-06 14:00 | NUR ---
NURSE NOTES: Oral care done,tracheal/oral secretions suctioned PRN.Pulled up ,turned and repositioned
--- NOTE | 2019-08-06 15:35 | Surgery Progress Note ---
Surgery Progress Note Subjective Additional Comments improving no acute events labs stable exam improved Objective Last 24 Hour Vital Signs Date Time Temp Pulse Resp B/P (MAP) Pulse Ox O2 Delivery O2 Flow Rate FiO2 08/06/19 12:16 40 08/06/19 12:00 Mechanical Ventilator 30.0 08/06/19 11:33 62 08/06/19 11:10 89 22 99 Mechanical Ventilator 40 84 22 08/06/19 08:51 169/78 08/06/19 08:00 60 08/06/19 08:00 Mechanical Ventilator 30.0 08/06/19 08:00 98.2 63 17 169/78 (108) 100 08/06/19 08:00 98.2 63 17 169/76 (107) 99 08/06/19 08:00 40 08/06/19 07:10 64 15 40 08/06/19 05:31 172/76 08/06/19 05:20 63 15 40 08/06/19 04:00 40 08/06/19 04:00 Mechanical Ventilator 30.0 08/06/19 04:00 98.2 70 19 172/76 (108) 99 08/06/19 03:58 90 08/06/19 03:25 62 16 40 08/06/19 01:00 61 18 40 08/06/19 00:34 158/80 08/06/19 00:00 Mechanical Ventilator 30.0 08/06/19 00:00 98.1 61 16 158/80 (106) 99 08/06/19 00:00 63 08/06/19 00:00 40 08/05/19 22:53 59 18 99 Mechanical Ventilator 40 66 18 08/05/19 22:04 157/71 08/05/19 20:46 63 18 40 08/05/19 20:00 98.2 59 15 157/71 (99) 100 08/05/19 20:00 40 08/05/19 20:00 Mechanical Ventilator 30.0 08/05/19 19:26 60 08/05/19 19:20 60 16 40 08/05/19 16:00 Mechanical Ventilator 30.0 08/05/19 16:00 40 08/05/19 16:00 98.4 62 15 167/76 (106) 100 08/05/19 16:00 66 I&O Intake and Output 08/05/19 08/06/19 19:00 07:00 Intake Total 775 ml 1035 ml Output Total 2200 ml 900 ml Balance -1425 ml 135 ml Intake Free Water 200 ml 100 ml IV Total 220 ml Tube Feeding 455 ml 715 ml Other 120 ml Output Urine Total 2200 ml 900 ml # Bowel Movements 2 Dressing: dry Wound: clean Cardiovascular: RSR Respiratory: clear Abdomen: soft, non-tender, present bowel sounds, non-distended Extremities: edema - improving , no tenderness, no cyanosis Laboratory Tests Test 08/06/19 03:05 White Blood Count 11.8 K/UL (4.8-10.8) H Red Blood Count 3.46 M/UL (4.70-6.10) L Hemoglobin 9.3 G/DL (14.2-18.0) L Hematocrit 30.2 % (42.0-52.0) L Mean Corpuscular Volume 87 FL (80-99) Mean Corpuscular Hemoglobin 27.0 PG (27.0-31.0) Mean Corpuscular Hemoglobin Concent 31.0 G/DL (32.0-36.0) L Red Cell Distribution Width 15.4 % (11.6-14.8) H Platelet Count 213 K/UL (150-450) Mean Platelet Volume 7.8 FL (6.5-10.1) Neutrophils (%) (Auto) 68.9 % (45.0-75.0) Lymphocytes (%) (Auto) 18.9 % (20.0-45.0) L Monocytes (%) (Auto) 6.2 % (1.0-10.0) Eosinophils (%) (Auto) 5.2 % (0.0-3.0) H Basophils (%) (Auto) 0.8 % (0.0-2.0) Sodium Level 146 MMOL/L (136-145) H Potassium Level 3.8 MMOL/L (3.5-5.1) Chloride Level 108 MMOL/L (98-107) H Carbon Dioxide Level 27 MMOL/L (21-32) Anion Gap 11 mmol/L (5-15) Blood Urea Nitrogen 19 mg/dL (7-18) H Creatinine 0.9 MG/DL (0.55-1.30) Estimat Glomerular Filtration Rate > 60 mL/min (>60) Glucose Level 131 MG/DL (74-106) H Calcium Level 8.7 MG/DL (8.5-10.1) Total Bilirubin 0.3 MG/DL (0.2-1.0) Aspartate Amino Transf (AST/SGOT) 17 U/L (15-37) Alanine Aminotransferase (ALT/SGPT) 13 U/L (12-78) Alkaline Phosphatase 55 U/L (46-116) Total Protein 6.9 G/DL (6.4-8.2) Albumin 2.3 G/DL (3.4-5.0) L Globulin 4.6 g/dL Albumin/Globulin Ratio 0.5 (1.0-2.7) L Plan Problems: (1) Cellulitis of right upper extremity Assessment & Plan: This is a 69-year-old male with fevers, leukocytosis, abnormal labs, right elbow cellulitis identified upper extremity. There is significant erythema edema without drainage or fluctuance. The edema is pitting and the right upper extremity does have a contracture at the level of the elbow. With gentle manipulation can slowly begin to straighten the elbow but does have overall limited movement. Plain films identified no fractures noted. No history of fall. No trauma identifiable on examination. Though this could potentially be a infectious process looks inflammatory in nature potentially dependent edema versus venous congestion. Ultrasound upper extremity will be ordered. Pillow to be placed underneath the axilla and to help elevate the elbow. Pillow placed in between the elbow to allow for some decompression. Will monitor skin closely as edema worsening and could breakdown. 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 Historical scar with hyperpigmentation Sacrum . Area of non-blanching erythema also noted at previously injured site. Base of scrotum is erythematous with partial thickness shearing. Generalized Maculopapular red rash noted. Cleanse GT site with Soap and tepid water. Apply Zinc Oxide Paste to GT site Three times daily. Apply Moisture Barrier Paste to Buttocks . Cover with Optifoam drsg. Change every 3 days and prn. Apply Moisture Barrier Paste to Scrotum with each Incontinence care. Reposition at least every 2hours or as tolerated. Off-load heels with Pillow. improving cellulitis near resolved some edema cont with current care DAILY ESTIMATED NEEDS: Needs based on DM, critical care 68kg abw 22-28 kcals/kg 5042-6533 total kcals 1.2-2 g protein/kg 81-136 g total protein 25-30 mL/kg 0713-4458 total fluid mLs NUTRITION DIAGNOSIS: 1) Swallowing difficulty r/t respiratory status as evidenced by pt is vent dep via trach, on GT feeds CURRENT TF: Glucerna 1.2 @ 65ml/hr x 20 hrs ENTERAL NUTRITION RECOMMENDATIONS: Glucerna 1.2 @ 65ml/hr x 20 hrs to provide 1300ml, 1560kcal, 78g prot, 1046ml free water - Maintain current TF as ordered - Once in stock, add prosource 1 pack QD for additional 11g prot to better meet est needs - HOB over 30 degrees/ water flush 170ml q 6hrs For continuous run x 24 hrs, rec Glucerna 1.2 @ 55ml/hr x 24 hrs to provide 1320ml, 1584kcal, 79g prot, 1063ml free water ADDITIONAL RECOMMENDATIONS: (1) Per SNF: HT=66" VT=071zmg (June 2019) (2) Monitor lytes closely, replete as needed (low phos) (3) Skin integrity: add Shoaib BID via PEG TF @ goal will provide 100% RDI Jaden Doshi Aug 06, 2019 15:35
[2019-08-06 16:00] VITALS: BP 159/76
--- NOTE | 2019-08-06 17:00 | NUR ---
NURSE NOTES: Pt stable,no resp distress presented during the shift.
--- NOTE | 2019-08-06 19:35 | NUR ---
HAND-OFF: Report given to Maira Vieira RN..
--- NOTE | 2019-08-06 19:40 | NUR ---
NURSE NOTES: Received pt from Ulises Isidro RN. pt observed in bed, obtunded, unable to make needs known; no s/sx of pain noted at this time. trach to vent settings are as follows: Portex: 7, AC: 10, VT: 500, FiO2: 40%, PEEP: 5. tolerating well, saturation: 100%; no s/sx of respiratory distress noted at this time. G-tube site is patent and intact, running Glucerna 1.2 at 65 cc/hr. HOB elevated to 30 degrees, no residual noted. F/C is patent and intact, draining well to gravity. ANGELES PICC line is patent and intact, asymptomatic. dressing dry and intact. bed in lowest position and locked, padded side rails up X3, all needs attended to. will continue to monitor.
[2019-08-06 20:00] VITALS: BP 182/98
--- NOTE | 2019-08-06 20:00 | Progress Note ---
DATE: 08/06/2019 CARDIOLOGY PROGRESS NOTE SUBJECTIVE: The patient remains on ventilator support. Baseline comatose state. Blood pressure parameters elevated. PHYSICAL EXAMINATION: VITAL SIGNS: Blood pressure 169/78, pulse 60, respiratory rate 18 to 22, afebrile. LUNGS: Coarse breath sounds with rhonchi. HEART: Regular rate and rhythm. Normal S1 and S2. ABDOMEN: Soft. EXTREMITIES: No edema. Of note, there have been no significant bradycardic episodes noted over the past 24 hours. LABORATORY DATA: Sodium 146, potassium 3.8, bicarb 27, BUN 19, creatinine 0.9, albumin 2.3. White count 11.8. Hemoglobin 9.3. IMPRESSION: 1. Stable cardiac rhythm, hypertensive heart disease with rising blood pressure trend. 2. Acute on chronic diastolic congestive heart failure mostly compensated. 3. Dehydration and hypernatremia due to diuresis. PLAN: 1. Discontinue furosemide. 2. Continue cardiac monitoring. 3. Titrate antihypertensives to optimize blood pressure control. Otto Condon M.D. DR: Rashaun JOB#: [id number] CC:
[2019-08-06] MEDS: Dyna-Hex 2% Top Sol 2oz TOPIC SCH (21:11)
--- NOTE | 2019-08-06 23:30 | Progress Note ---
DATE: 08/06/2019 SUBJECTIVE: The patient is afebrile. Hemodynamically stable. PHYSICAL EXAMINATION: VITAL SIGNS: Blood pressure is 159/76, pulse is 61, respirations are 18, temperature 98.2. HEENT: Eyes were normal. ENT, mucous membranes moist and intact. NECK: Supple with no JVD without lymph nodes. Tracheostomy site is clean. LUNGS: Clear without rhonchi, rales, or wheezing. HEART: Normal sounds with regular beats. There is no tachycardia at rest. ABDOMEN: Soft, nontender with normal bowel sounds. Gastrostomy site is clean. EXTREMITIES: Warm without cyanosis, clubbing, or edema. IMPRESSION: The patient continued to be on vancomycin, cefepime. His elbow redness nearly completely resolved. There is no swelling, mostly resolved. The elbow increased heat, mostly resolved as well. The patient has increasing pleural effusion and require pleural tap. However, the patient's brother declined to give any opinion and refer the case to the patient's daughter who presently, according to the patient, lives in [place] and left a message for her to call me back, 24 hours later there was no call back. The brother by himself called me that she does not answer back his call as well. Decision regarding the tap will be done. We will wait till Friday waiting for any family member to approve or disapprove the procedure. Repeat laboratory tests will be done in the a.m. Janette Weaver M.D. DR: DEJON JOB#: [id number] CC:
[2019-08-07] VITALS: BP 180/87
[2019-08-07] MEDS: Vancomycin 500mg/D5W 110ml IVPB SCH ×4 (00:10→11:57)
[2019-08-07] MEDS: NovoLOG Insulin Flexpen SUBQ SCH ×4 (00:11→18:00)
[2019-08-07] MEDS: HydrALAZINE 50mg tab GT PRN (01:23)
--- NOTE | 2019-08-07 02:00 | NUR ---
NURSE NOTES: Patient is sleeping in bed comfortably.no s/s of respiratory distress with current vent settings..no grimacing or moaning noted. keep patient comfortable.Turned and repositioned.
[2019-08-07 04:00] VITALS: BP 146/77
[2019-08-07] MEDS: HydrALAZINE 50mg tab GT SCH ×3 (06:24→22:58)
[2019-08-07 07:27] LABS: HEMOGLOBIN 10.1 G/DL (14.2-18.0); MEAN CORPUSCULAR VOLUME 87 FL (80-99); PLATELET COUNT 226 K/UL (150-450); RED CELL DISTRIBUTION WIDTH 15.5 % (11.6-14.8); WHITE BLOOD COUNT 13.1 K/UL (4.8-10.8)
--- NOTE | 2019-08-07 07:34 | NUR ---
HAND-OFF: Report given to Chloé Lau RN using SBAR.BP 146/77. No acute distress.
--- NOTE | 2019-08-07 07:35 | NUR ---
NURSE NOTES: Received report from MELISA Rao. The patient is resting on the bed without acute distress or shortness of breath. [facility] communication made by facial expression and body movement. [facility] and ventilator setting as follows as ordered: Protex 7, AC 10, TV 500, FiO2 40%, PEEP 5 and oxygen saturation is 100%. The patient's G-tube intact and patent and running Glucerna 1.2 @65mL/hr as ordered and G tube feeding on hold since ordered infusion is 20hours and holding tube feeding from 4038-2274. No residual noted. The patient's Crow intact and patent and draining by gravity. Skin issue noted and dressing intact. ANGELES double lumen PICC line intact and patent and kept TKO. The patient's bed in the lowest position, call light in reach, and fall, aspiration, and seizure precaution reinforced. Will follow up the order and lab. Will continue plan of care.
[2019-08-07 07:39] LABS: ALANINE AMINOTRANSFERASE 16 U/L (12-78); ALBUMIN 2.5 G/DL (3.4-5.0); ALBUMIN/GLOBULIN RATIO 0.5 (1.0-2.7); ALKALINE PHOSPHATASE 64 U/L (46-116); ANION GAP 10 mmol/L (5-15); BILIRUBIN,TOTAL 0.2 MG/DL (0.2-1.0); BLOOD UREA NITROGEN 20 mg/dL (7-18); CALCIUM 8.8 MG/DL (8.5-10.1); CARBON DIOXIDE 28 MMOL/L (21-32); CHLORIDE 107 MMOL/L (98-107); CREATININE 0.8 MG/DL (0.55-1.30); POTASSIUM 3.6 MMOL/L (3.5-5.1); SODIUM 145 MMOL/L (136-145)
[2019-08-07 07:59] LABS: ASPARTATE AMINO TRANSFERASE 19 U/L (15-37)
[2019-08-07 08:00] VITALS: BP 177/82
--- NOTE | 2019-08-07 08:08 | Pulmonology Progress Note ---
Subjective ROS Limited/Unobtainable: Yes Allergies: Coded Allergies: No Known Allergies (Unverified , 05/27/18) Subjective afebrile, still with leukocytosis no signs of resp distress on current ventilator settings Objective Last 24 Hour Vital Signs Date Time Temp Pulse Resp B/P (MAP) Pulse Ox O2 Delivery O2 Flow Rate FiO2 08/07/19 07:22 69 14 40 08/07/19 06:24 146/77 08/07/19 04:53 81 20 99 Mechanical Ventilator 40 92 12 40 08/07/19 04:00 86 08/07/19 04:00 Mechanical Ventilator 30.0 08/07/19 04:00 98.1 98 18 146/77 (100) 100 08/07/19 04:00 40 08/07/19 01:23 180/87 08/07/19 00:00 98.4 79 18 180/87 (118) 99 08/07/19 00:00 Mechanical Ventilator 30.0 08/06/19 22:40 85 20 99 Mechanical Ventilator 40 92 12 40 08/06/19 21:12 182/98 08/06/19 20:00 98.8 79 19 182/98 (126) 99 08/06/19 20:00 82 08/06/19 20:00 Mechanical Ventilator 30.0 08/06/19 20:00 40 08/06/19 19:36 81 20 40 08/06/19 16:00 61 08/06/19 16:00 40 08/06/19 16:00 98.2 64 18 159/76 (103) 100 08/06/19 16:00 Mechanical Ventilator 30.0 08/06/19 15:36 169/78 08/06/19 15:10 63 27 40 08/06/19 12:16 40 08/06/19 12:00 Mechanical Ventilator 30.0 08/06/19 12:00 98.4 63 17 168/73 (104) 100 08/06/19 11:33 62 08/06/19 11:10 89 22 99 Mechanical Ventilator 40 84 22 08/06/19 08:51 169/78 Intake and Output 08/06/19 08/07/19 19:00 07:00 Intake Total 1385 ml 1050 ml Output Total 900 ml Balance 1385 ml 150 ml Intake Free Water 200 ml 160 ml IV Total 110 ml Tube Feeding 585 ml 780 ml Other 600 ml Output Urine Total 900 ml # Bowel Movements 2 General Appearance: no acute distress, other - bedriden vent dependent male in NAD, Vent AC 500-40%-27ESIB1 HEENT: status post trach - Portex #7, secretions moderate amount, white color, thick consistency Respiratory: other - few isolated rhonchi Cardiovascular: bradycardia - komal, SB with 1 st degree AV block , other - LUE PICC intact Abdomen: soft, non tender, non distended, other - G tube Extremities: no edema, other - contracted BLE and BUE ; R elbow erythema and edema Neurologic: other - awake, not responsive Musculoskeletal: atrophy - BLE , other - contracted x 4 BUE and BLE Laboratory Tests 08/07/19 06:15: White Blood Count 13.1H, Red Blood Count 3.80L, Hemoglobin 10.1L, Hematocrit 33.0L, Mean Corpuscular Volume 87, Mean Corpuscular Hemoglobin 26.5L, Mean Corpuscular Hemoglobin Concent 30.5L, Red Cell Distribution Width 15.5H, Platelet Count 226, Mean Platelet Volume 8.8, Neutrophils (%) (Auto) , Lymphocytes (%) (Auto) , Monocytes (%) (Auto) , Eosinophils (%) (Auto) , Basophils (%) (Auto) , Neutrophils % (Manual) [Pending], Lymphocytes % (Manual) [Pending], Platelet Estimate [Pending], Platelet Morphology [Pending], Sodium Level 145, Potassium Level 3.6, Chloride Level 107, Carbon Dioxide Level 28, Anion Gap 10, Blood Urea Nitrogen 20H, Creatinine 0.8, Estimat Glomerular Filtration Rate > 60, Glucose Level 166H, Calcium Level 8.8, Total Bilirubin 0.2 , Aspartate Amino Transf (AST/SGOT) 19, Alanine Aminotransferase (ALT/SGPT) 16, Alkaline Phosphatase 64, Total Protein 7.4, Albumin 2.5L, Globulin 4.9, Albumin/ Globulin Ratio 0.5L Current Medications Medications (Trade) Dose Ordered Sig/Bhupinder Route PRN Reason Start Time Stop Time Status Last Admin Dose Admin Acetaminophen (Tylenol) 650 mg Q4H PRN GT fever and mild pain 07/26/19 16:30 08/25/19 16:29 08/03/19 05:08 Albuterol Sulfate (Proventil MDI) 2 puff Q3H PRN INH Shortness of Breath 07/26/19 16:30 10/24/19 16:29 Ascorbic Acid (Vitamin C) 500 mg DAILY GT 07/27/19 09:00 08/26/19 08:59 08/06/19 08:50 Atorvastatin Calcium (Lipitor) 10 mg BEDTIME GT 07/26/19 21:00 10/24/19 20:59 08/06/19 21:11 Chlorhexidine Gluconate (Jasmin-Hex 2%) 1 applic DAILY@1999 TOPIC 07/26/19 20:00 10/24/19 19:59 08/06/19 21:11 Colistimethate Sodium (Colistin *inhalation use only*) 75 mg Q12HR@ INH 08/01/19 10:30 08/08/19 10:29 08/06/19 22:27 Dextrose (Dextrose 50%) 25 ml Q30M PRN IV Hypoglycemia 07/26/19 16:30 10/24/19 16:29 Dextrose (Dextrose 50%) 50 ml Q30M PRN IV Hypoglycemia 07/26/19 16:30 10/24/19 16:29 Docusate Sodium (Colace) 100 mg DAILY GT 07/27/19 09:00 08/26/19 08:59 08/06/19 08:47 Ferrous Sulfate (Feosol) 325 mg DAILY GT 07/27/19 09:00 10/25/19 08:59 08/06/19 08:48 Furosemide (Lasix) 40 mg DAILY IV 08/05/19 00:00 09/04/19 00:00 08/06/19 08:48 Glimepiride (AmaryL) 4 mg BID GT 07/26/19 18:00 08/25/19 17:59 08/06/19 17:49 Heparin Sodium (Porcine) (Heparin 5000 units/ml) 5,000 units EVERY 12 HOURS SUBQ 07/26/19 09:00 09/09/19 08:59 08/06/19 08:57 Hydralazine HCl (Apresoline) 50 mg Q6H PRN GT SBP above 150 08/04/19 15:00 10/30/19 14:59 08/07/19 01:23 Hydralazine HCl (Apresoline) 100 mg EVERY 8 HOURS GT 07/30/19 06:00 10/24/19 21:59 08/07/19 06:24 Insulin Aspart (NovoLOG) Q6HR SUBQ 07/26/19 18:00 10/24/19 16:29 08/07/19 06:25 Levetiracetam (Keppra) 1,500 mg DAILY GT 07/27/19 09:00 08/26/19 08:59 08/06/19 08:49 Lisinopril (PriniviL) 40 mg DAILY GT 07/27/19 09:00 08/26/19 08:59 08/06/19 08:51 Metformin HCl (Glucophage) 1,000 mg BID ORAL 07/26/19 18:00 08/25/19 17:59 08/06/19 17:49 Ondansetron HCl (Zofran) 4 mg Q4H PRN GT Nausea & Vomiting 07/26/19 16:30 08/25/19 16:29 Pantoprazole (Protonix) 40 mg EVERY 12 HOURS IVP 07/26/19 09:00 08/25/19 08:59 08/06/19 21:11 Potassium Chloride (K-Dur) 40 meq TWICE A DAY GT 07/27/19 18:00 10/25/19 17:59 08/06/19 17:51 Topiramate (Topamax) 200 mg BID GT 07/26/19 18:00 08/25/19 17:59 08/06/19 17:50 Vancomycin HCl (Vanco pharmacy to dose) 1 ea DAILY PRN MISC rx protocol 07/31/19 15:15 08/30/19 15:14 Vancomycin HCl 500 mg/Dextrose 110 ml @ 110 mls/hr Q12H IVPB 08/03/19 00:00 08/08/19 00:00 08/07/19 00:10 Vitamin D (Vitamin D) 5,000 intlu DAILY GT 07/26/19 09:00 08/25/19 08:59 08/06/19 08:49 Zinc Oxide (Zinc Oxide) 1 applic THREE TIMES A DAY PRN TOPIC REDNESS 07/26/19 12:45 10/24/19 12:44 Assessment/Plan Assessment/Plan ASSESSMENT Severe sepsis Pneumonia Suspected COVID-19 -ruled out Chronic respiratory failure, ventilator dependent with tracheostomy status Bilateral pleural effusion, L>R RUE elbow cellulitis , rule out abscess Heart block 2 nd degree Anemia, status post blood transfusion Diabetes mellitus History of CVA Dysphagia, feeding by G tube Hypertension Seizure disorder Scabies, status post treatment Vegetative state Multiple contractures PLAN OF CARE ALY vent support, trach care baseline ABG stable on current settings, keep as is and titrate settings as needed CXR 08/03 [place] pleural effusion, no sign change from before COVID-19 07/24 and 07/27 NGT off isolation Pulm toilet with HHN CXR in am US guided thoracentesis pending abx as per ID BCX NGT SCX + ACB MDR ? colonizer and Proteus, DVT prophylaxis aspir precautions HB 2 nd degree noted cardio consulted, BB dose decreased, Clonidine used for BP spikes stopped and changed to Hydralazine no need for pacemaker placement as per cardio ortho surgeon seen and evaluated ; no need for surgical intervention at this time general surgeon follows venous duplex RUE -no DVT seizure precautions , continue Keppra and Topamax s/p blood transfusion, stool OB NGT HH remains at baseline after transfusion s/p treatment for scabies GI prophylaxis case discussed and evaluated by supervising physician Brittani Baptiste NP Aug 07, 2019 08:08
--- NOTE | 2019-08-07 08:30 | NUR ---
NURSE NOTES: Notified Dr. Weaver regarding abnormal lab. No new order at this time. Will closely monitor the patient. Will continue plan of care.
[2019-08-07] MEDS ORDERED: NS 275ml ONE (08:45)
[2019-08-07] MEDS ORDERED: Tubing IV Secondary IV ONE (08:45)
--- NOTE | 2019-08-07 09:47 | General Progress Note ---
Assessment/Plan Problem List: (1) Sepsis Assessment & Plan: Pneumonia ICD Codes: A41.9 - Sepsis, unspecified organism SNOMED: 12547587 (2) Acute on chronic respiratory failure ICD Codes: J96.20 - Acute and chronic respiratory failure, unspecified whether with hypoxia or hypercapnia SNOMED: 15677879 (3) Vegetative state ICD Codes: R40.3 - Persistent vegetative state SNOMED: 07618588 Status: stable Assessment/Plan: August 06: Iinternal medicine note covering for Dr. Janette Weaver. Lab reviewed. Status quo. Remains full code. Trach to vent. Will repeat iron panel. Continue antibiotics per ID. Continue pulmonary support. Subjective Date patient seen: Aug 07, 2019 ROS Limited/Unobtainable: Yes Respiratory: Reports: other - Trach and vent Gastrointestinal/Abdominal: Reports: other - PEG Genitourinary: Reports: other - Crow catheter Allergies: Coded Allergies: No Known Allergies (Unverified , 05/27/18) Objective Last 24 Hour Vital Signs Date Time Temp Pulse Resp B/P (MAP) Pulse Ox O2 Delivery O2 Flow Rate FiO2 08/07/19 08:00 54 08/07/19 07:22 69 14 40 08/07/19 06:24 146/77 08/07/19 04:53 81 20 99 Mechanical Ventilator 40 92 12 40 08/07/19 04:00 86 08/07/19 04:00 Mechanical Ventilator 30.0 08/07/19 04:00 98.1 98 18 146/77 (100) 100 08/07/19 04:00 40 08/07/19 01:23 180/87 08/07/19 00:00 98.4 79 18 180/87 (118) 99 08/07/19 00:00 Mechanical Ventilator 30.0 08/06/19 22:40 85 20 99 Mechanical Ventilator 40 92 12 40 08/06/19 21:12 182/98 08/06/19 20:00 98.8 79 19 182/98 (126) 99 08/06/19 20:00 82 08/06/19 20:00 Mechanical Ventilator 30.0 08/06/19 20:00 40 08/06/19 19:36 81 20 40 08/06/19 16:00 61 08/06/19 16:00 40 08/06/19 16:00 98.2 64 18 159/76 (103) 100 08/06/19 16:00 Mechanical Ventilator 30.0 08/06/19 15:36 169/78 08/06/19 15:10 63 27 40 08/06/19 12:16 40 08/06/19 12:00 Mechanical Ventilator 30.0 08/06/19 12:00 98.4 63 17 168/73 (104) 100 08/06/19 11:33 62 08/06/19 11:10 89 22 99 Mechanical Ventilator 40 84 22 Intake and Output 08/06/19 08/07/19 19:00 07:00 Intake Total 1385 ml 1050 ml Output Total 900 ml Balance 1385 ml 150 ml Intake Free Water 200 ml 160 ml IV Total 110 ml Tube Feeding 585 ml 780 ml Other 600 ml Output Urine Total 900 ml # Bowel Movements 2 Laboratory Tests 08/07/19 06:15: White Blood Count 13.1H, Red Blood Count 3.80L, Hemoglobin 10.1L, Hematocrit 33.0L, Mean Corpuscular Volume 87, Mean Corpuscular Hemoglobin 26.5L, Mean Corpuscular Hemoglobin Concent 30.5L, Red Cell Distribution Width 15.5H, Platelet Count 226, Mean Platelet Volume 8.8, Neutrophils (%) (Auto) , Lymphocytes (%) (Auto) , Monocytes (%) (Auto) , Eosinophils (%) (Auto) , Basophils (%) (Auto) , Neutrophils % (Manual) [Pending], Lymphocytes % (Manual) [Pending], Platelet Estimate [Pending], Platelet Morphology [Pending], Sodium Level 145, Potassium Level 3.6, Chloride Level 107, Carbon Dioxide Level 28, Anion Gap 10, Blood Urea Nitrogen 20H, Creatinine 0.8, Estimat Glomerular Filtration Rate > 60, Glucose Level 166H, Calcium Level 8.8, Total Bilirubin 0.2 , Aspartate Amino Transf (AST/SGOT) 19, Alanine Aminotransferase (ALT/SGPT) 16, Alkaline Phosphatase 64, Total Protein 7.4, Albumin 2.5L, Globulin 4.9, Albumin/ Globulin Ratio 0.5L Height (Feet): 5 Height (Inches): 8.00 Weight (Pounds): 215 General Appearance: no apparent distress EENT: other - Trach and vent Cardiovascular: other Respiratory/Chest: decreased breath sounds Abdomen: distended, other - PEG Fouladian,Claudy MD Aug 07, 2019 09:47
[2019-08-07] MEDS: Glimepiride 4mg tab GT SCH ×2 (09:50→18:00)
[2019-08-07] MEDS: Ferrous Sulfate 300 MG/5 ML UDC GT SCH (09:50)
[2019-08-07] MEDS: Docusate 100mg/10ml Liq GT SCH (09:50)
[2019-08-07] MEDS: Lisinopril 20mg tab GT SCH (09:51)
[2019-08-07] MEDS: levETIRAcetam 500mg/5ml Liquid GT SCH (09:51)
[2019-08-07] MEDS: Ascorbic Acid 500mg tab GT SCH (09:52)
[2019-08-07] MEDS: Vitamin D 1000 IU Tab GT SCH (09:52)
[2019-08-07] MEDS: Topiramate 100mg tab GT SCH ×2 (09:52→18:01)
[2019-08-07] MEDS: Pantoprazole Inj IVP SCH ×2 (09:53→20:22)
[2019-08-07] MEDS: metFORMIN 500mg tab ORAL SCH ×2 (09:54→18:01)
[2019-08-07] MEDS: Heparin 5000 units/ml inj SUBQ SCH ×2 (09:55→20:26)
--- NOTE | 2019-08-07 10:00 | NUR ---
NURSE NOTES: Administered morning medications as ordered. Vital signs noted. Will closely monitor the patient. Will continue plan of care.
--- NOTE | 2019-08-07 10:03 | Infectious Diseases Prog Note ---
Assessment/Plan Assessment/Plan Assessment: Sepsis Probable PNA- COVID19 neg x2 (resident from SNF with large outbreak) -08/03 CXR: Left pleural effusion, bilateral left greater than right interstitial congestion persists. -08/01 CXR: Large left pleural effusion, possible hazy mid and lower lung infiltrates and atelectasis persist, unchanged. Right lung pleural space remain clear. -07/26 CXR: Left lung infiltrates and effusion unchanged. -07/25 sp cx MDR ABC (S colistin/polymixin B; suspect colonizer), P. mirabilis, probable AMp-C (S Cefepime, Zosyn, Meropenem) -CXR: Retrocardiac atelectasis with possible tiny left pleural effusion, correlate to exclude pneumonia.Cardiomegaly. Low lung volumes with bronchovascular crowding. -07/24 SARS-Cov2 PCR neg R elbow cellulitis- improving -xray elbow: : Limited and essentially nondiagnostic. No definite acute abnormality -V. duplex: no DVT -07/24 Bcx NTD Fever; SP Mild leukocytosis, recurrent Probable Scabies, sp rx hx of MSSA,CONS bacteremia 05/2018- suspected 2ry to PICC line Hx of providencia PNA 05/2018 Dm2 HTN CVA/TIA CHF seizure disorder contractures chronic resp failure s/p trach/vent dependant vegetative state 2ry to anoxic brain injury SNF resident (cristian hernández) VRE colonized Plan: -Continue IV Vancomycin #13/14 for cellulitis -Cefepime #9/10 for PNA -INH colistin #7/7-10 -if worsening fevers, leukocytosis, switch Cefepime to Polymixin B -07/29 SP Zosyn #6 -07/26 SP Ivermectin and permethrin cream x1 -f/u cx -Monitor CBC/CMP, temperatures -COVID19 neg x2- dc isolation as afebrile >72hrs and alternate diagnosis ( cellulitis, bacterial PNA) -trach care -wound care -Sx and ortho f/u Thank you for consulting [facility]. Will continue to follow along with you. Discussed with RN Subjective Allergies: Coded Allergies: No Known Allergies (Unverified , 05/27/18) Subjective Afebrile Continued leukocytosis On vent 40% O2 Objective Vital Signs Last 24 Hour Vital Signs Date Time Temp Pulse Resp B/P (MAP) Pulse Ox O2 Delivery O2 Flow Rate FiO2 08/07/19 09:51 177/82 08/07/19 08:00 54 08/07/19 07:22 69 14 40 08/07/19 06:24 146/77 08/07/19 04:53 81 20 99 Mechanical Ventilator 40 92 12 40 08/07/19 04:00 86 08/07/19 04:00 Mechanical Ventilator 30.0 08/07/19 04:00 98.1 98 18 146/77 (100) 100 08/07/19 04:00 40 08/07/19 01:23 180/87 08/07/19 00:00 98.4 79 18 180/87 (118) 99 08/07/19 00:00 Mechanical Ventilator 30.0 08/06/19 22:40 85 20 99 Mechanical Ventilator 40 92 12 40 08/06/19 21:12 182/98 08/06/19 20:00 98.8 79 19 182/98 (126) 99 08/06/19 20:00 82 08/06/19 20:00 Mechanical Ventilator 30.0 08/06/19 20:00 40 08/06/19 19:36 81 20 40 08/06/19 16:00 61 08/06/19 16:00 40 08/06/19 16:00 98.2 64 18 159/76 (103) 100 08/06/19 16:00 Mechanical Ventilator 30.0 08/06/19 15:36 169/78 08/06/19 15:10 63 27 40 08/06/19 12:16 40 08/06/19 12:00 Mechanical Ventilator 30.0 08/06/19 12:00 98.4 63 17 168/73 (104) 100 08/06/19 11:33 62 08/06/19 11:10 89 22 99 Mechanical Ventilator 40 84 22 Height (Feet): 5 Height (Inches): 8.00 Weight (Pounds): 215 Objective Gen: chornically ill, no distress HEENT: trach in place, EOMI Lungs: no tachypnea, Coarse B/L Abd: Soft not distended Ext: R elbow redness and swelling Laboratory Tests Test 08/07/19 06:15 White Blood Count 13.1 K/UL (4.8-10.8) H Red Blood Count 3.80 M/UL (4.70-6.10) L Hemoglobin 10.1 G/DL (14.2-18.0) L Hematocrit 33.0 % (42.0-52.0) L Mean Corpuscular Volume 87 FL (80-99) Mean Corpuscular Hemoglobin 26.5 PG (27.0-31.0) L Mean Corpuscular Hemoglobin Concent 30.5 G/DL (32.0-36.0) L Red Cell Distribution Width 15.5 % (11.6-14.8) H Platelet Count 226 K/UL (150-450) Mean Platelet Volume 8.8 FL (6.5-10.1) Neutrophils (%) (Auto) % (45.0-75.0) Lymphocytes (%) (Auto) % (20.0-45.0) Monocytes (%) (Auto) % (1.0-10.0) Eosinophils (%) (Auto) % (0.0-3.0) Basophils (%) (Auto) % (0.0-2.0) Neutrophils % (Manual) Pending Lymphocytes % (Manual) Pending Platelet Estimate Pending Platelet Morphology Pending Sodium Level 145 MMOL/L (136-145) Potassium Level 3.6 MMOL/L (3.5-5.1) Chloride Level 107 MMOL/L (98-107) Carbon Dioxide Level 28 MMOL/L (21-32) Anion Gap 10 mmol/L (5-15) Blood Urea Nitrogen 20 mg/dL (7-18) H Creatinine 0.8 MG/DL (0.55-1.30) Estimat Glomerular Filtration Rate > 60 mL/min (>60) Glucose Level 166 MG/DL (74-106) H Calcium Level 8.8 MG/DL (8.5-10.1) Total Bilirubin 0.2 MG/DL (0.2-1.0) Aspartate Amino Transf (AST/SGOT) 19 U/L (15-37) Alanine Aminotransferase (ALT/SGPT) 16 U/L (12-78) Alkaline Phosphatase 64 U/L (46-116) Total Protein 7.4 G/DL (6.4-8.2) Albumin 2.5 G/DL (3.4-5.0) L Globulin 4.9 g/dL Albumin/Globulin Ratio 0.5 (1.0-2.7) L Current Medications Medications (Trade) Dose Ordered Sig/Bhupinder Route PRN Reason Start Time Stop Time Status Last Admin Dose Admin Acetaminophen (Tylenol) 650 mg Q4H PRN GT fever and mild pain 07/26/19 16:30 08/25/19 16:29 08/03/19 05:08 Albuterol Sulfate (Proventil MDI) 2 puff Q3H PRN INH Shortness of Breath 07/26/19 16:30 10/24/19 16:29 Ascorbic Acid (Vitamin C) 500 mg DAILY GT 07/27/19 09:00 08/26/19 08:59 08/07/19 09:52 Atorvastatin Calcium (Lipitor) 10 mg BEDTIME GT 07/26/19 21:00 10/24/19 20:59 08/06/19 21:11 Cefepime HCl 1 gm/ Dextrose 55 ml @ 110 mls/hr EVERY 8 HOURS IVPB 08/07/19 14:00 08/09/19 13:59 Chlorhexidine Gluconate (Jasmin-Hex 2%) 1 applic DAILY@1999 TOPIC 07/26/19 20:00 10/24/19 19:59 08/06/19 21:11 Colistimethate Sodium (Colistin *inhalation use only*) 75 mg Q12HR@10,22 INH 08/01/19 10:30 08/10/19 10:29 08/06/19 22:27 Dextrose (Dextrose 50%) 25 ml Q30M PRN IV Hypoglycemia 07/26/19 16:30 10/24/19 16:29 Dextrose (Dextrose 50%) 50 ml Q30M PRN IV Hypoglycemia 07/26/19 16:30 10/24/19 16:29 Docusate Sodium (Colace) 100 mg DAILY GT 07/27/19 09:00 08/26/19 08:59 08/07/19 09:50 Ferrous Sulfate (Feosol) 325 mg DAILY GT 07/27/19 09:00 10/25/19 08:59 08/07/19 09:50 Furosemide (Lasix) 40 mg DAILY IV 08/05/19 00:00 09/04/19 00:00 08/07/19 09:53 Glimepiride (AmaryL) 4 mg BID GT 07/26/19 18:00 08/25/19 17:59 08/07/19 09:50 Heparin Sodium (Porcine) (Heparin 5000 units/ml) 5,000 units EVERY 12 HOURS SUBQ 07/26/19 09:00 09/09/19 08:59 08/07/19 09:55 Hydralazine HCl (Apresoline) 50 mg Q6H PRN GT SBP above 150 08/04/19 15:00 10/30/19 14:59 08/07/19 01:23 Hydralazine HCl (Apresoline) 100 mg EVERY 8 HOURS GT 07/30/19 06:00 10/24/19 21:59 08/07/19 06:24 Insulin Aspart (NovoLOG) Q6HR SUBQ 07/26/19 18:00 10/24/19 16:29 08/07/19 06:25 Levetiracetam (Keppra) 1,500 mg DAILY GT 07/27/19 09:00 08/26/19 08:59 08/07/19 09:51 Lisinopril (PriniviL) 40 mg DAILY GT 07/27/19 09:00 08/26/19 08:59 08/07/19 09:51 Metformin HCl (Glucophage) 1,000 mg BID ORAL 07/26/19 18:00 08/25/19 17:59 08/07/19 09:54 Ondansetron HCl (Zofran) 4 mg Q4H PRN GT Nausea & Vomiting 07/26/19 16:30 08/25/19 16:29 Pantoprazole (Protonix) 40 mg EVERY 12 HOURS IVP 07/26/19 09:00 08/25/19 08:59 08/07/19 09:53 Potassium Chloride (K-Dur) 40 meq TWICE A DAY GT 07/27/19 18:00 10/25/19 17:59 08/07/19 09:51 Topiramate (Topamax) 200 mg BID GT 07/26/19 18:00 08/25/19 17:59 08/07/19 09:52 Vancomycin HCl (Vanco pharmacy to dose) 1 ea DAILY PRN MISC rx protocol 07/31/19 15:15 08/30/19 15:14 Vancomycin HCl 500 mg/Dextrose 110 ml @ 110 mls/hr Q12H IVPB 08/03/19 00:00 08/08/19 00:00 08/07/19 00:10 Vitamin D (Vitamin D) 5,000 intlu DAILY GT 07/26/19 09:00 08/25/19 08:59 08/07/19 09:52 Zinc Oxide (Zinc Oxide) 1 applic THREE TIMES A DAY PRN TOPIC REDNESS 07/26/19 12:45 10/24/19 12:44 Otto Fallon MD Aug 07, 2019 10:03
[2019-08-07] MEDS: Colistin for inhalation INH SCH ×2 (10:21→22:00)
[2019-08-07 12:00] VITALS: BP 138/76
--- NOTE | 2019-08-07 12:00 | NUR ---
NURSE NOTES: The patient is stable without acute distress or shortness of breath. The patient is sleeping comfortably. Will closely monitor the patient. Will continue plan of care.
--- NOTE | 2019-08-07 13:02 | Surgery Progress Note ---
Surgery Progress Note Subjective Symptoms: improved Objective Last 24 Hour Vital Signs Date Time Temp Pulse Resp B/P (MAP) Pulse Ox O2 Delivery O2 Flow Rate FiO2 08/07/19 10:51 60 18 100 Mechanical Ventilator 40 64 16 40 08/07/19 09:51 177/82 08/07/19 08:00 98.4 71 18 177/82 (113) 100 08/07/19 08:00 54 08/07/19 08:00 40 08/07/19 07:22 69 14 40 08/07/19 06:24 146/77 08/07/19 04:53 81 20 99 Mechanical Ventilator 40 92 12 40 08/07/19 04:00 86 08/07/19 04:00 Mechanical Ventilator 30.0 08/07/19 04:00 98.1 98 18 146/77 (100) 100 08/07/19 04:00 40 08/07/19 01:23 180/87 08/07/19 00:00 98.4 79 18 180/87 (118) 99 08/07/19 00:00 Mechanical Ventilator 30.0 08/06/19 22:40 85 20 99 Mechanical Ventilator 40 92 12 40 08/06/19 21:12 182/98 08/06/19 20:00 98.8 79 19 182/98 (126) 99 08/06/19 20:00 82 08/06/19 20:00 Mechanical Ventilator 30.0 08/06/19 20:00 40 08/06/19 19:36 81 20 40 08/06/19 16:00 61 08/06/19 16:00 40 08/06/19 16:00 98.2 64 18 159/76 (103) 100 08/06/19 16:00 Mechanical Ventilator 30.0 08/06/19 15:36 169/78 08/06/19 15:10 63 27 40 I&O Intake and Output 08/06/19 08/07/19 19:00 07:00 Intake Total 1385 ml 1050 ml Output Total 900 ml Balance 1385 ml 150 ml Intake Free Water 200 ml 160 ml IV Total 110 ml Tube Feeding 585 ml 780 ml Other 600 ml Output Urine Total 900 ml # Bowel Movements 2 Dressing: dry Wound: clean Cardiovascular: RSR Respiratory: clear Abdomen: soft, non-tender, present bowel sounds Extremities: edema, no tenderness, no cyanosis Laboratory Tests Test 08/07/19 06:15 08/07/19 10:45 White Blood Count 13.1 K/UL (4.8-10.8) H Red Blood Count 3.80 M/UL (4.70-6.10) L Hemoglobin 10.1 G/DL (14.2-18.0) L Hematocrit 33.0 % (42.0-52.0) L Mean Corpuscular Volume 87 FL (80-99) Mean Corpuscular Hemoglobin 26.5 PG (27.0-31.0) L Mean Corpuscular Hemoglobin Concent 30.5 G/DL (32.0-36.0) L Red Cell Distribution Width 15.5 % (11.6-14.8) H Platelet Count 226 K/UL (150-450) Mean Platelet Volume 8.8 FL (6.5-10.1) Neutrophils (%) (Auto) % (45.0-75.0) Lymphocytes (%) (Auto) % (20.0-45.0) Monocytes (%) (Auto) % (1.0-10.0) Eosinophils (%) (Auto) % (0.0-3.0) Basophils (%) (Auto) % (0.0-2.0) Differential Total Cells Counted 100 Neutrophils % (Manual) 84 % (45-75) H Lymphocytes % (Manual) 11 % (20-45) L Monocytes % (Manual) 3 % (1-10) Eosinophils % (Manual) 2 % (0-3) Basophils % (Manual) 0 % (0-2) Band Neutrophils 0 % (0-8) Platelet Estimate Adequate Platelet Morphology Normal Anisocytosis 1+ Sodium Level 145 MMOL/L (136-145) Potassium Level 3.6 MMOL/L (3.5-5.1) Chloride Level 107 MMOL/L (98-107) Carbon Dioxide Level 28 MMOL/L (21-32) Anion Gap 10 mmol/L (5-15) Blood Urea Nitrogen 20 mg/dL (7-18) H Creatinine 0.8 MG/DL (0.55-1.30) Estimat Glomerular Filtration Rate > 60 mL/min (>60) Glucose Level 166 MG/DL (74-106) H Calcium Level 8.8 MG/DL (8.5-10.1) Total Bilirubin 0.2 MG/DL (0.2-1.0) Aspartate Amino Transf (AST/SGOT) 19 U/L (15-37) Alanine Aminotransferase (ALT/SGPT) 16 U/L (12-78) Alkaline Phosphatase 64 U/L (46-116) Total Protein 7.4 G/DL (6.4-8.2) Albumin 2.5 G/DL (3.4-5.0) L Globulin 4.9 g/dL Albumin/Globulin Ratio 0.5 (1.0-2.7) L Vancomycin Level Trough 14.9 ug/mL (5.0-12.0) H Plan Problems: (1) Cellulitis of right upper extremity Assessment & Plan: This is a 69-year-old male with fevers, leukocytosis, abnormal labs, right elbow cellulitis identified upper extremity. There is significant erythema edema without drainage or fluctuance. The edema is pitting and the right upper extremity does have a contracture at the level of the elbow. With gentle manipulation can slowly begin to straighten the elbow but does have overall limited movement. Plain films identified no fractures noted. No history of fall. No trauma identifiable on examination. Though this could potentially be a infectious process looks inflammatory in nature potentially dependent edema versus venous congestion. Ultrasound upper extremity will be ordered. Pillow to be placed underneath the axilla and to help elevate the elbow. Pillow placed in between the elbow to allow for some decompression. Will monitor skin closely as edema worsening and could breakdown. 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 Historical scar with hyperpigmentation Sacrum . Area of non-blanching erythema also noted at previously injured site. Base of scrotum is erythematous with partial thickness shearing. Generalized Maculopapular red rash noted. Cleanse GT site with Soap and tepid water. Apply Zinc Oxide Paste to GT site Three times daily. Apply Moisture Barrier Paste to Buttocks . Cover with Optifoam drsg. Change every 3 days and prn. Apply Moisture Barrier Paste to Scrotum with each Incontinence care. Reposition at least every 2hours or as tolerated. Off-load heels with Pillow. improving cellulitis near resolved some edema cont with current care DAILY ESTIMATED NEEDS: Needs based on DM, critical care 68kg abw 22-28 kcals/kg 1327-9277 total kcals 1.2-2 g protein/kg 81-136 g total protein 25-30 mL/kg 5931-0746 total fluid mLs NUTRITION DIAGNOSIS: 1) Swallowing difficulty r/t respiratory status as evidenced by pt is vent dep via trach, on GT feeds CURRENT TF: Glucerna 1.2 @ 65ml/hr x 20 hrs ENTERAL NUTRITION RECOMMENDATIONS: Glucerna 1.2 @ 65ml/hr x 20 hrs to provide 1300ml, 1560kcal, 78g prot, 1046ml free water - Maintain current TF as ordered - Once in stock, add prosource 1 pack QD for additional 11g prot to better meet est needs - HOB over 30 degrees/ water flush 170ml q 6hrs For continuous run x 24 hrs, rec Glucerna 1.2 @ 55ml/hr x 24 hrs to provide 1320ml, 1584kcal, 79g prot, 1063ml free water ADDITIONAL RECOMMENDATIONS: (1) Per SNF: HT=66" [id number] (June 2019) (2) Monitor lytes closely, replete as needed (low phos) (3) Skin integrity: add Shoaib BID via PEG TF @ goal will provide 100% RDI Jaden Doshi Aug 07, 2019 13:02
[2019-08-07] MEDS: Cefepime HCl 1 GM in D5W 55 ML IVPB SCH ×2 (13:26→22:58)
--- NOTE | 2019-08-07 14:00 | NUR ---
NURSE NOTES: The patient is stable without acute distress or shortness of breath. Tolerating vent setting and tube feeding well. Will continue plan of care.
[2019-08-07 16:00] VITALS: BP 146/76
--- NOTE | 2019-08-07 16:00 | NUR ---
NURSE NOTES: Paged Dr. Condon regarding KCL and Amlodipine order that needs clarification. Medications will be on hold until clarification made with Dr. Condon. Will closely monitor the patient. Will continue plan of care.
--- NOTE | 2019-08-07 17:30 | NUR ---
NURSE NOTES: reached back and clarification was made regarding KCL and Amlodipine order. Dr. Condon discontinued KCl but continue on Amlodipine. Will administer medications as ordered. Will continue plan of care.
--- NOTE | 2019-08-07 17:41 | NUR ---
*-*DISCHARGE PLANNING*-* S/W NURSE DR. MIGDALIA WANTS TO DO THORACENTESIS ON PT ON Friday08/07/2019
--- NOTE | 2019-08-07 18:00 | NUR ---
NURSE NOTES: About to change PICC line dressing and noticed that the PICC line got misplaced. Applied central line dressing so that it does not come out more. Notified Dr. Weaver. Per Dr. Weaver, do not remove PICC line apply tape so that it does not come out more, but insert peripheral line on leg. Will carry out the order. Will continue plan of care.
--- NOTE | 2019-08-07 18:30 | NUR ---
NURSE NOTES: 1800 medications administered as ordered. BS of 137 noted and no insulin coverage per protocol. Will closely monitor the patient. Will continue plan of care.
--- NOTE | 2019-08-07 18:45 | NUR ---
NURSE NOTES: New peripheral IV inserted on R leg 20G that is intact and patent per Dr. Weaver's order. Will endorse plan of care.
--- NOTE | 2019-08-07 19:30 | NUR ---
HAND-OFF: Report given to MELISA Rodriguez. The patient is stable at this time. Endorsed plan of care.
--- NOTE | 2019-08-07 19:31 | NUR ---
NURSE NOTES: Received patient form MELISA Luevano. Patient is obtunded, vss, with no acute distress. Patient is on a equipment monitor phototypesetting. Trach to vent with a Portex 7, AC 10, TV 500, Fio2 40%, PEEP of 5. G-tube is patent with Glucerna at 65mL/hr. Skin issues noted. IV site on right leg 20g and PICC on left upper arm. Bed is at its lowest position, call light in reach, and x3 bed rails are up. Will continue to monitor.
[2019-08-07 20:00] VITALS: BP_SYST 14; BP_SYST 140; BP_DIAS 71
[2019-08-07] MEDS: Dyna-Hex 2% Top Sol 2oz TOPIC SCH (20:22)
--- NOTE | 2019-08-07 20:30 | Progress Note ---
DATE: 08/07/2019 CARDIOLOGY PROGRESS NOTE SUBJECTIVE: The patient remains on ventilator support via trach. Monitored rhythm sinus. No significant bradyarrhythmias. Blood pressure parameters remain elevated at times. PHYSICAL EXAMINATION: VITAL SIGNS: Blood pressure 138/76 to 177/82, heart rate 54 to 68, respiratory rate 18 to 20. No fevers. LUNGS: Few rhonchi. CARDIAC: Regular rhythm and rate. Normal S1 and S2. ABDOMEN: Slightly distended, but soft. There is trace dependent edema. LABORATORY DATA: White count 13 and hemoglobin 10. Sodium 145, potassium 3.6, bicarb 28, BUN 20, creatinine 0.8, and albumin 2.5. IMPRESSION: 1. Hypertensive heart disease still with some blood pressure lability. 2. Dehydration. 3. Hypernatremia, improving. 4. Prerenal azotemia, recovering post diuresis. 5. Acute on chronic diastolic congestive heart failure, clinically compensated. 6. Sinus node disease with asymptomatic bradycardia, likely due to increased vagal tone, now improved. PLAN: 1. No role for pacemaker. 2. Advance antihypertensives. 3. Avoiding all therapies with negative chronotropic potential. 4. Free water replacement per feeding tube. 5. Additional potassium supplements. 6. Recheck magnesium levels. Otto Condon M.D. DR: GLENNA JOB#: [id number] CC:
--- NOTE | 2019-08-07 22:30 | Progress Note ---
DATE: 08/07/2019 SUBJECTIVE: The patient is awake. There is an impression of eye contact without tracking, afebrile, and hemodynamically stable. PHYSICAL EXAMINATION: VITAL SIGNS: Blood pressure 138/75, his pulse is 63, respirations are 18, and temperature 98.4. HEENT: Eyes were normal. ENT, mucous membranes were moist and intact. NECK: Supple with no JVD without lymph nodes. Tracheostomy site is clean. LUNGS: Clear without rhonchi, rales, or wheezing. HEART: Normal sounds with regular beat. There is no bradycardia at rest. ABDOMEN: Soft, nontender with normal bowel sounds. Gastrostomy site is clean. EXTREMITIES: Warm without cyanosis, clubbing, or edema. The right elbow swelling now is minimal and the elbow now appear the same size as the left elbow. LABORATORY DATA: His hemoglobin is 10.1, hematocrit 33.2 with MCV of 87, WBC of 13.1, and platelets are 226. WBC was 11.6 yesterday. His BUN and creatinine are 20 and 0.8 respectively. His sodium is 145, potassium 3.6, chloride 107, CO2 is 20. His albumin is 2.5 and his total protein is 7.4. IMPRESSION: The patient's right arm cellulitis is markedly improved. The remaining issue remains tapping his pleural effusion, pleural tapping most probably will be done on August 08. Repeat laboratory tests will be done in a.m. Janette Weaver M.D. DR: BRYNN JOB#: [id number] CC:
[2019-08-08] VITALS: BP 136/62
[2019-08-08] MEDS: Vancomycin 500mg/D5W 110ml IVPB SCH ×2 (00:16)
[2019-08-08] MEDS: NovoLOG Insulin Flexpen SUBQ SCH ×5 (00:18→23:45)
[2019-08-08 04:00] VITALS: BP 124/59
[2019-08-08] MEDS: HydrALAZINE 50mg tab GT SCH ×3 (06:13→21:32)
[2019-08-08] MEDS: Cefepime HCl 1 GM in D5W 55 ML IVPB SCH ×3 (06:14→21:31)
--- NOTE | 2019-08-08 06:25 | NUR ---
NURSE NOTES: Patient tolerated treatments and bed bath well. Pictures of wounds taken with no noticeable changes in wound condition. Will continue to monitor.
--- NOTE | 2019-08-08 07:31 | NUR ---
HAND-OFF: Report given to MELISA Watts.
--- NOTE | 2019-08-08 07:32 | NUR ---
NURSE NOTES: Report received from MELISA Andrews. Patient in stable condition upon assessment. Tolerating vent and feed settings well. G-tube and olmos intact. Bed in lowest and locked position. Will continue to monitor.
[2019-08-08 07:47] LABS: BASOPHILS % (AUTO) 1.5 % (0.0-2.0); EOSINOPHILS % (AUTO) 7.4 % (0.0-3.0); HEMATOCRIT 31.4 % (42.0-52.0); HEMOGLOBIN 9.4 G/DL (14.2-18.0); LYMPHOCYTES % (AUTO) 25.3 % (20.0-45.0); MEAN CORPUSCULAR VOLUME 90 FL (80-99); MONOCYTES % (AUTO) 8.1 % (1.0-10.0); NEUTROPHILS % (AUTO) 57.7 % (45.0-75.0); PLATELET COUNT 212 K/UL (150-450); RED BLOOD COUNT 3.48 M/UL (4.70-6.10); RED CELL DISTRIBUTION WIDTH 17.4 % (11.6-14.8); WHITE BLOOD COUNT 7.7 K/UL (4.8-10.8)
--- NOTE | 2019-08-08 07:57 | Pulmonology Progress Note ---
Subjective ROS Limited/Unobtainable: Yes Allergies: Coded Allergies: No Known Allergies (Unverified , 05/27/18) Subjective afebrile, leukocytosis resolved no signs of resp distress on current ventilator settings Objective Last 24 Hour Vital Signs Date Time Temp Pulse Resp B/P (MAP) Pulse Ox O2 Delivery O2 Flow Rate FiO2 08/08/19 06:53 56 17 40 08/08/19 06:13 134/60 08/08/19 04:00 40 08/08/19 04:00 50 08/08/19 04:00 Mechanical Ventilator 08/08/19 04:00 98.2 50 19 124/59 (80) 100 08/08/19 03:32 64 14 40 08/08/19 00:00 98.6 61 19 136/62 (86) 100 08/08/19 00:00 Mechanical Ventilator 08/07/19 23:34 61 08/07/19 23:29 55 13 100 Mechanical Ventilator 40 59 16 40 08/07/19 22:58 140/71 08/07/19 20:00 40 08/07/19 20:00 Mechanical Ventilator 08/07/19 20:00 98.2 63 21 140/71 (94) 100 08/07/19 19:26 62 08/07/19 19:26 62 16 40 08/07/19 17:58 72 146/76 08/07/19 16:00 40 08/07/19 16:00 Mechanical Ventilator 08/07/19 16:00 40 08/07/19 16:00 98.9 72 18 146/76 (99) 100 08/07/19 16:00 64 08/07/19 15:09 68 19 40 08/07/19 13:25 138/76 08/07/19 12:00 63 08/07/19 12:00 40 08/07/19 12:00 40 08/07/19 12:00 98.9 61 18 138/76 (96) 100 08/07/19 12:00 Mechanical Ventilator 08/07/19 10:51 60 18 100 Mechanical Ventilator 40 64 16 40 08/07/19 09:51 177/82 08/07/19 08:00 98.4 71 18 177/82 (113) 100 08/07/19 08:00 Mechanical Ventilator 08/07/19 08:00 54 08/07/19 08:00 40 Intake and Output 08/07/19 08/08/19 19:00 07:00 Intake Total 720 ml 1135 ml Output Total 1200 ml 800 ml Balance -480 ml 335 ml Intake Free Water 200 ml 300 ml IV Total 55 ml Tube Feeding 520 ml 780 ml Output Urine Total 1200 ml 800 ml # Voids 1 # Bowel Movements 1 General Appearance: no acute distress, other - bedriden vent dependent male in NAD, Vent AC 500-40%-[id number] HEENT: status post trach - Portex #7, secretions moderate amount, white color, thick consistency Respiratory: other - few isolated rhonchi Cardiovascular: normal rate, other - LUE PICC intact Abdomen: soft, non tender, non distended, other - G tube Extremities: no edema, other - contracted BLE and BUE ; R elbow erythema and edema Neurologic: other - awake, not responsive Musculoskeletal: atrophy - BLE , other - contracted x 4 BUE and BLE Laboratory Tests 08/07/19 10:45: Vancomycin Level Trough 14.9H 08/08/19 06:45: White Blood Count 7.7, Red Blood Count 3.48L, Hemoglobin 9.4L, Hematocrit 31.4L , Mean Corpuscular Volume 90, Mean Corpuscular Hemoglobin 26.9L, Mean Corpuscular Hemoglobin Concent 29.9L, Red Cell Distribution Width 17.4H, Platelet Count 212, Mean Platelet Volume 8.5, Neutrophils (%) (Auto) 57.7, Lymphocytes (%) (Auto) 25.3, Monocytes (%) (Auto) 8.1, Eosinophils (%) (Auto) 7.4H, Basophils (%) (Auto) 1.5, Sodium Level [Pending], Potassium Level [Pending ], Chloride Level [Pending], Carbon Dioxide Level [Pending], Blood Urea Nitrogen [Pending], Creatinine [Pending], Estimat Glomerular Filtration Rate [ Pending], Glucose Level [Pending], Hemoglobin A1c [Pending], Calcium Level [ Pending], Phosphorus Level [Pending], Magnesium Level [Pending], Iron Level [ Pending], Unsaturated Iron Binding [Pending], Ferritin [Pending], Total Bilirubin [Pending], Gamma Glutamyl Transpeptidase [Pending], Aspartate Amino Transf (AST/SGOT) [Pending], Alanine Aminotransferase (ALT/SGPT) [Pending], Alkaline Phosphatase [Pending], C-Reactive Protein, Quantitative [Pending], Pro- B-Type Natriuretic Peptide [Pending], Total Protein [Pending], Albumin [Pending] , Globulin [Pending], Vitamin B12 Level [Pending], Folate [Pending], Thyroid Stimulating Hormone (TSH) [Pending] Current Medications Medications (Trade) Dose Ordered Sig/Bhupinder Route PRN Reason Start Time Stop Time Status Last Admin Dose Admin Acetaminophen (Tylenol) 650 mg Q4H PRN GT fever and mild pain 07/26/19 16:30 08/25/19 16:29 08/03/19 05:08 Albuterol Sulfate (Proventil MDI) 2 puff Q3H PRN INH Shortness of Breath 07/26/19 16:30 10/24/19 16:29 Amlodipine Besylate (Norvasc) 5 mg DAILY GT 08/07/19 16:00 09/06/19 15:59 08/07/19 17:58 Ascorbic Acid (Vitamin C) 500 mg DAILY GT 07/27/19 09:00 08/26/19 08:59 08/07/19 09:52 Atorvastatin Calcium (Lipitor) 10 mg BEDTIME GT 07/26/19 21:00 10/24/19 20:59 08/07/19 20:22 Cefepime HCl 1 gm/ Dextrose 55 ml @ 110 mls/hr EVERY 8 HOURS IVPB 08/07/19 14:00 08/09/19 13:59 08/08/19 06:14 Chlorhexidine Gluconate (Jasmin-Hex 2%) 1 applic DAILY@1999 TOPIC 07/26/19 20:00 10/24/19 19:59 08/07/19 20:22 Colistimethate Sodium (Colistin *inhalation use only*) 75 mg Q12HR@10,22 INH 08/01/19 10:30 08/10/19 10:29 08/07/19 22:00 Dextrose (Dextrose 50%) 25 ml Q30M PRN IV Hypoglycemia 07/26/19 16:30 10/24/19 16:29 Dextrose (Dextrose 50%) 50 ml Q30M PRN IV Hypoglycemia 07/26/19 16:30 10/24/19 16:29 Docusate Sodium (Colace) 100 mg DAILY GT 07/27/19 09:00 08/26/19 08:59 08/07/19 09:50 Ferrous Sulfate (Feosol) 325 mg DAILY GT 07/27/19 09:00 10/25/19 08:59 08/07/19 09:50 Furosemide (Lasix) 40 mg DAILY IV 08/05/19 00:00 09/04/19 00:00 08/07/19 09:53 Glimepiride (AmaryL) 4 mg BID GT 07/26/19 18:00 08/25/19 17:59 08/07/19 18:00 Heparin Sodium (Porcine) (Heparin 5000 units/ml) 5,000 units EVERY 12 HOURS SUBQ 07/26/19 09:00 09/09/19 08:59 08/07/19 20:26 Hydralazine HCl (Apresoline) 50 mg Q6H PRN GT SBP above 150 08/04/19 15:00 10/30/19 14:59 08/07/19 01:23 Hydralazine HCl (Apresoline) 100 mg EVERY 8 HOURS GT 07/30/19 06:00 10/24/19 21:59 08/08/19 06:13 Insulin Aspart (NovoLOG) Q6HR SUBQ 07/26/19 18:00 10/24/19 16:29 08/08/19 06:12 Levetiracetam (Keppra) 1,500 mg DAILY GT 07/27/19 09:00 08/26/19 08:59 08/07/19 09:51 Lisinopril (PriniviL) 40 mg DAILY GT 07/27/19 09:00 08/26/19 08:59 08/07/19 09:51 Metformin HCl (Glucophage) 1,000 mg BID ORAL 07/26/19 18:00 08/25/19 17:59 08/07/19 18:01 Ondansetron HCl (Zofran) 4 mg Q4H PRN GT Nausea & Vomiting 07/26/19 16:30 08/25/19 16:29 Pantoprazole (Protonix) 40 mg EVERY 12 HOURS IVP 07/26/19 09:00 08/25/19 08:59 08/07/19 20:22 Potassium Chloride (K-Dur) 40 meq TWICE A DAY GT 07/27/19 18:00 10/25/19 17:59 08/07/19 18:00 Topiramate (Topamax) 200 mg BID GT 07/26/19 18:00 08/25/19 17:59 08/07/19 18:01 Vancomycin HCl (Vanco pharmacy to dose) 1 ea DAILY PRN MISC rx protocol 07/31/19 15:15 08/30/19 15:14 Vitamin D (Vitamin D) 5,000 intlu DAILY GT 07/26/19 09:00 08/25/19 08:59 08/07/19 09:52 Zinc Oxide (Zinc Oxide) 1 applic THREE TIMES A DAY PRN TOPIC REDNESS 07/26/19 12:45 10/24/19 12:44 Assessment/Plan Assessment/Plan ASSESSMENT Severe sepsis Pneumonia Suspected COVID- -ruled out Bilateral pleural effusion, L>R Chronic respiratory failure, ventilator dependent with tracheostomy status RUE elbow cellulitis , rule out abscess Heart block 2 nd degree Anemia, status post blood transfusion Diabetes mellitus History of CVA Dysphagia, feeding by G tube Hypertension Seizure disorder Scabies, status post treatment Vegetative state Multiple contractures PLAN OF CARE ALY vent support, trach care baseline ABG stable on current settings, keep as is and titrate settings as needed CXR 08/03 [place] pleural effusion, no sign change from before COVID-19 07/24 and 07/27 NGT off isolation pulm toilet with HHN CXR in am US guided thoracentesis pending abx as per ID BCX NGT SCX + ACB MDR ? colonizer and Proteus, DVT prophylaxis aspir precautions HB 2 nd degree noted cardio consulted, BB dose decreased, Clonidine used for BP spikes stopped and changed to Hydralazine no need for pacemaker placement as per cardio ortho surgeon seen and evaluated ; no need for surgical intervention at this time general surgeon follows venous duplex RUE -no DVT seizure precautions , continue Keppra and Topamax s/p blood transfusion, stool OB NGT HH remains at baseline after transfusion s/p treatment for scabies GI prophylaxis case discussed and evaluated by supervising physician Brittani Baptiste NP Aug 08, 2019 07:57
[2019-08-08 08:00] VITALS: BP 135/73
[2019-08-08] MEDS: Ferrous Sulfate 300 MG/5 ML UDC GT SCH (08:40)
[2019-08-08] MEDS: levETIRAcetam 500mg/5ml Liquid GT SCH (08:41)
[2019-08-08] MEDS: Docusate 100mg/10ml Liq GT SCH (08:43)
[2019-08-08] MEDS: Pantoprazole Inj IVP SCH ×2 (08:43→21:32)
[2019-08-08] MEDS: metFORMIN 500mg tab ORAL SCH ×2 (08:46→17:13)
[2019-08-08] MEDS: Vitamin D 1000 IU Tab GT SCH (08:47)
[2019-08-08] MEDS: Glimepiride 4mg tab GT SCH ×2 (08:47→17:13)
[2019-08-08] MEDS: Ascorbic Acid 500mg tab GT SCH (08:47)
[2019-08-08] MEDS: Topiramate 100mg tab GT SCH ×2 (08:48→17:14)
[2019-08-08] MEDS: Lisinopril 20mg tab GT SCH (08:48)
[2019-08-08] MEDS: Heparin 5000 units/ml inj SUBQ SCH ×2 (08:49→21:00)
[2019-08-08 09:20] LABS: ALANINE AMINOTRANSFERASE 18 U/L (12-78); ALBUMIN 2.3 G/DL (3.4-5.0); ALBUMIN/GLOBULIN RATIO 0.5 (1.0-2.7); ALKALINE PHOSPHATASE 62 U/L (46-116); ANION GAP 8 mmol/L (5-15); ASPARTATE AMINO TRANSFERASE 13 U/L (15-37); BILIRUBIN,TOTAL 0.2 MG/DL (0.2-1.0); BLOOD UREA NITROGEN 24 mg/dL (7-18); CALCIUM 8.8 MG/DL (8.5-10.1); CARBON DIOXIDE 30 MMOL/L (21-32); CHLORIDE 107 MMOL/L (98-107); CREATININE 0.8 MG/DL (0.55-1.30); FERRITIN 62 NG/ML (8-388); GAMMA GLUTAMYL TRANSPEPTIDASE 13 U/L (5-85); PHOSPHORUS 3.4 MG/DL (2.5-4.9); POTASSIUM 3.9 MMOL/L (3.5-5.1); SODIUM 144 MMOL/L (136-145)
[2019-08-08 09:31] LABS: % IRON SATURATION 8 % (15-50); IRON 18 ug/dL (50-175); TOTAL IRON BINDING CAPACITY 221 ug/dL (250-450)
--- NOTE | 2019-08-08 09:36 | Surgery Progress Note ---
Surgery Progress Note Subjective Additional Comments afebrile, HD stable leukocytosis resolved right elbow erythema again Objective Last 24 Hour Vital Signs Date Time Temp Pulse Resp B/P (MAP) Pulse Ox O2 Delivery O2 Flow Rate FiO2 08/08/19 08:49 51 135/73 08/08/19 08:48 135/73 08/08/19 06:53 56 17 40 08/08/19 06:13 134/60 08/08/19 04:00 40 08/08/19 04:00 50 08/08/19 04:00 Mechanical Ventilator 08/08/19 04:00 98.2 50 19 124/59 (80) 100 08/08/19 03:32 64 14 40 08/08/19 00:00 98.6 61 19 136/62 (86) 100 08/08/19 00:00 Mechanical Ventilator 08/07/19 23:34 61 08/07/19 23:29 55 13 100 Mechanical Ventilator 40 59 16 40 08/07/19 22:58 140/71 08/07/19 20:00 40 08/07/19 20:00 Mechanical Ventilator 08/07/19 20:00 98.2 63 21 140/71 (94) 100 08/07/19 19:26 62 08/07/19 19:26 62 16 40 08/07/19 17:58 72 146/76 08/07/19 16:00 40 08/07/19 16:00 Mechanical Ventilator 08/07/19 16:00 40 08/07/19 16:00 98.9 72 18 146/76 (99) 100 08/07/19 16:00 64 08/07/19 15:09 68 19 40 08/07/19 13:25 138/76 08/07/19 12:00 63 08/07/19 12:00 40 08/07/19 12:00 40 08/07/19 12:00 98.9 61 18 138/76 (96) 100 08/07/19 12:00 Mechanical Ventilator 08/07/19 10:51 60 18 100 Mechanical Ventilator 40 64 16 40 08/07/19 09:51 177/82 I&O Intake and Output 08/07/19 08/08/19 19:00 07:00 Intake Total 720 ml 1135 ml Output Total 1200 ml 800 ml Balance -480 ml 335 ml Intake Free Water 200 ml 300 ml IV Total 55 ml Tube Feeding 520 ml 780 ml Output Urine Total 1200 ml 800 ml # Voids 1 # Bowel Movements 1 Dressing: dry Wound: clean Cardiovascular: RSR Respiratory: clear, decreased breath sounds Abdomen: soft, non-tender, present bowel sounds Extremities: edema, no cyanosis, other Laboratory Tests Test 08/07/19 10:45 08/08/19 06:45 Vancomycin Level Trough 14.9 ug/mL (5.0-12.0) H White Blood Count 7.7 K/UL (4.8-10.8) Red Blood Count 3.48 M/UL (4.70-6.10) L Hemoglobin 9.4 G/DL (14.2-18.0) L Hematocrit 31.4 % (42.0-52.0) L Mean Corpuscular Volume 90 FL (80-99) Mean Corpuscular Hemoglobin 26.9 PG (27.0-31.0) L Mean Corpuscular Hemoglobin Concent 29.9 G/DL (32.0-36.0) L Red Cell Distribution Width 17.4 % (11.6-14.8) H Platelet Count 212 K/UL (150-450) Mean Platelet Volume 8.5 FL (6.5-10.1) Neutrophils (%) (Auto) 57.7 % (45.0-75.0) Lymphocytes (%) (Auto) 25.3 % (20.0-45.0) Monocytes (%) (Auto) 8.1 % (1.0-10.0) Eosinophils (%) (Auto) 7.4 % (0.0-3.0) H Basophils (%) (Auto) 1.5 % (0.0-2.0) Sodium Level 144 MMOL/L (136-145) Potassium Level 3.9 MMOL/L (3.5-5.1) Chloride Level 107 MMOL/L (98-107) Carbon Dioxide Level 30 MMOL/L (21-32) Anion Gap 8 mmol/L (5-15) Blood Urea Nitrogen 24 mg/dL (7-18) H Creatinine 0.8 MG/DL (0.55-1.30) Estimat Glomerular Filtration Rate > 60 mL/min (>60) Glucose Level 184 MG/DL (74-106) H Hemoglobin A1c 6.5 % (4.3-6.0) H Calcium Level 8.8 MG/DL (8.5-10.1) Phosphorus Level 3.4 MG/DL (2.5-4.9) Magnesium Level 1.8 MG/DL (1.8-2.4) Iron Level Pending Unsaturated Iron Binding Pending Ferritin 62 NG/ML (8-388) Total Bilirubin 0.2 MG/DL (0.2-1.0) Gamma Glutamyl Transpeptidase 13 U/L (5-85) Aspartate Amino Transf (AST/SGOT) 13 U/L (15-37) L Alanine Aminotransferase (ALT/SGPT) 18 U/L (12-78) Alkaline Phosphatase 62 U/L (46-116) C-Reactive Protein, Quantitative 8.4 mg/dL (0.00-0.90) H Pro-B-Type Natriuretic Peptide 985 pg/mL (0-125) H Total Protein 7.1 G/DL (6.4-8.2) Albumin 2.3 G/DL (3.4-5.0) L Globulin 4.8 g/dL Albumin/Globulin Ratio 0.5 (1.0-2.7) L Vitamin B12 Level Pending Folate Pending Thyroid Stimulating Hormone (TSH) 1.517 uiU/mL (0.358-3.740) Plan Problems: (1) Cellulitis of right upper extremity Assessment & Plan: This is a 69-year-old male with fevers, leukocytosis, abnormal labs, right elbow cellulitis identified upper extremity. There is significant erythema edema without drainage or fluctuance. The edema is pitting and the right upper extremity does have a contracture at the level of the elbow. With gentle manipulation can slowly begin to straighten the elbow but does have overall limited movement. Plain films identified no fractures noted. No history of fall. No trauma identifiable on examination. Though this could potentially be a infectious process looks inflammatory in nature potentially dependent edema versus venous congestion. Ultrasound upper extremity will be ordered. Pillow to be placed underneath the axilla and to help elevate the elbow. Pillow placed in between the elbow to allow for some decompression. Will monitor skin closely as edema worsening and could breakdown. 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 Historical scar with hyperpigmentation Sacrum . Area of non-blanching erythema also noted at previously injured site. Base of scrotum is erythematous with partial thickness shearing. Generalized Maculopapular red rash noted. Cleanse GT site with Soap and tepid water. Apply Zinc Oxide Paste to GT site Three times daily. Apply Moisture Barrier Paste to Buttocks . Cover with Optifoam drsg. Change every 3 days and prn. Apply Moisture Barrier Paste to Scrotum with each Incontinence care. Reposition at least every 2hours or as tolerated. Off-load heels with Pillow. improving cellulitis near resolved some edema cont with current care leukocytosis resolved still with mild edema again in right elbow. likely from contraction and dependent. elevated DAILY ESTIMATED NEEDS: Needs based on DM, critical care 68kg abw 22-28 kcals/kg 0958-4181 total kcals 1.2-2 g protein/kg 81-136 g total protein 25-30 mL/kg 0349-0994 total fluid mLs NUTRITION DIAGNOSIS: 1) Swallowing difficulty r/t respiratory status as evidenced by pt is vent dep via trach, on GT feeds CURRENT TF: Glucerna 1.2 @ 65ml/hr x 20 hrs ENTERAL NUTRITION RECOMMENDATIONS: Glucerna 1.2 @ 65ml/hr x 20 hrs to provide 1300ml, 1560kcal, 78g prot, 1046ml free water - Maintain current TF as ordered - Once in stock, add prosource 1 pack QD for additional 11g prot to better meet est needs - HOB over 30 degrees/ water flush 170ml q 6hrs For continuous run x 24 hrs, rec Glucerna 1.2 @ 55ml/hr x 24 hrs to provide 1320ml, 1584kcal, 79g prot, 1063ml free water ADDITIONAL RECOMMENDATIONS: (1) Per SNF: HT=66" [id number] (June 2019) (2) Monitor lytes closely, replete as needed (low phos) (3) Skin integrity: add Shoaib BID via PEG TF @ goal will provide 100% RDI Jaden Doshi Aug 08, 2019 09:36
[2019-08-08] MEDS: Colistin for inhalation INH SCH ×2 (10:00→23:00)
--- NOTE | 2019-08-08 11:50 | General Progress Note ---
Assessment/Plan Problem List: (1) Sepsis Assessment & Plan: Pneumonia ICD Codes: A41.9 - Sepsis, unspecified organism SNOMED: 62776877 (2) Acute on chronic respiratory failure ICD Codes: J96.20 - Acute and chronic respiratory failure, unspecified whether with hypoxia or hypercapnia SNOMED: 06449246 (3) Vegetative state ICD Codes: R40.3 - Persistent vegetative state SNOMED: 00486786 (4) Cellulitis of right upper extremity ICD Codes: L03.113 - Cellulitis of right upper limb SNOMED: 616600307 Status: stable Assessment/Plan: August 07: Iinternal medicine note covering for Dr. Janette Weaver. The patient's right arm cellulitis is markedly improved. Lab reviewed. Status quo. Remains full code. Trach to vent. Repeat iron panel noted will give 1 dose of IV Venofer. Continue antibiotics per ID. Continue pulmonary support. Discussed with RN Subjective ROS Limited/Unobtainable: Yes Allergies: Coded Allergies: No Known Allergies (Unverified , 05/27/18) Objective Last 24 Hour Vital Signs Date Time Temp Pulse Resp B/P (MAP) Pulse Ox O2 Delivery O2 Flow Rate FiO2 08/08/19 08:49 51 135/73 08/08/19 08:48 135/73 08/08/19 08:00 Mechanical Ventilator 08/08/19 08:00 52 08/08/19 08:00 97.9 56 21 135/73 (93) 100 08/08/19 08:00 40 08/08/19 06:53 56 17 40 08/08/19 06:13 134/60 08/08/19 04:00 40 08/08/19 04:00 50 08/08/19 04:00 Mechanical Ventilator 08/08/19 04:00 98.2 50 19 124/59 (80) 100 08/08/19 03:32 64 14 40 08/08/19 00:00 98.6 61 19 136/62 (86) 100 08/08/19 00:00 Mechanical Ventilator 08/07/19 23:34 61 08/07/19 23:29 55 13 100 Mechanical Ventilator 40 59 16 40 08/07/19 22:58 140/71 08/07/19 20:00 40 08/07/19 20:00 Mechanical Ventilator 08/07/19 20:00 98.2 63 21 140/71 (94) 100 08/07/19 19:26 62 08/07/19 19:26 62 16 40 08/07/19 17:58 72 146/76 08/07/19 16:00 40 08/07/19 16:00 Mechanical Ventilator 08/07/19 16:00 40 08/07/19 16:00 98.9 72 18 146/76 (99) 100 08/07/19 16:00 64 08/07/19 15:09 68 19 40 08/07/19 13:25 138/76 08/07/19 12:00 63 08/07/19 12:00 40 08/07/19 12:00 40 08/07/19 12:00 98.9 61 18 138/76 (96) 100 08/07/19 12:00 Mechanical Ventilator Intake and Output 08/07/19 08/08/19 19:00 07:00 Intake Total 720 ml 1135 ml Output Total 1200 ml 800 ml Balance -480 ml 335 ml Intake Free Water 200 ml 300 ml IV Total 55 ml Tube Feeding 520 ml 780 ml Output Urine Total 1200 ml 800 ml # Voids 1 # Bowel Movements 1 Laboratory Tests 08/08/19 06:45: White Blood Count 7.7, Red Blood Count 3.48L, Hemoglobin 9.4L, Hematocrit 31.4L , Mean Corpuscular Volume 90, Mean Corpuscular Hemoglobin 26.9L, Mean Corpuscular Hemoglobin Concent 29.9L, Red Cell Distribution Width 17.4H, Platelet Count 212, Mean Platelet Volume 8.5, Neutrophils (%) (Auto) 57.7, Lymphocytes (%) (Auto) 25.3, Monocytes (%) (Auto) 8.1, Eosinophils (%) (Auto) 7.4H, Basophils (%) (Auto) 1.5, Sodium Level 144, Potassium Level 3.9, Chloride Level 107, Carbon Dioxide Level 30, Anion Gap 8, Blood Urea Nitrogen 24H, Creatinine 0.8, Estimat Glomerular Filtration Rate > 60, Glucose Level 184H, Hemoglobin A1c 6.5H, Calcium Level 8.8, Phosphorus Level 3.4, Magnesium Level 1.8, Iron Level 18L, Total Iron Binding Capacity 221L, Percent Iron Saturation 8L, Unsaturated Iron Binding 203, Ferritin 62, Total Bilirubin 0.2, Gamma Glutamyl Transpeptidase 13, Aspartate Amino Transf (AST/SGOT) 13L, Alanine Aminotransferase (ALT/SGPT) 18, Alkaline Phosphatase 62, C-Reactive Protein, Quantitative 8.4H, Pro-B-Type Natriuretic Peptide 985H, Total Protein 7.1, Albumin 2.3L, Globulin 4.8, Albumin/Globulin Ratio 0.5L, Vitamin B12 Level 412, Folate 20.9, Thyroid Stimulating Hormone (TSH) 1.517 Height (Feet): 5 Height (Inches): 8.00 Weight (Pounds): 215 General Appearance: no apparent distress EENT: other - Trach and vent Cardiovascular: bradycardia Respiratory/Chest: decreased breath sounds Abdomen: distended Claudy Gardner MD Aug 08, 2019 11:50
[2019-08-08 12:00] VITALS: BP 146/85
[2019-08-08] MEDS ORDERED: Iron Sucrose 200 MG in NS 110 ML IV ONE (13:00)
[2019-08-08 16:00] VITALS: BP 144/74
[2019-08-08] MEDS ORDERED: NS 275ml ONE (17:53)
[2019-08-08] MEDS ORDERED: Tubing IV Secondary IV ONE (17:53)
--- NOTE | 2019-08-08 18:00 | NUR ---
NURSE NOTES: Made aware of antibiotic cefepime completion as of 08/08/[address] Zambrano orders. Removed PICC line on left arm as ordered. No bleeding or distress noted from patient. PICC line 37 cm upon removal. Patient is stable.
--- NOTE | 2019-08-08 19:15 | NUR ---
HAND-OFF: Report given to Zulema Kaiser RN. Patient in stable condition.
--- NOTE | 2019-08-08 19:17 | NUR ---
NURSE NOTES: received pt from Min RN., pt is is obtunded and awake, resting on the bed. pt trach is in place no SOB noted, O2sat is at 99%. Gtube site clean, patent, and intact. olmos cath is draining well with gravity. right leg 20G intact, patent, and clean. call light within reach. bed at the lowest position, alarmed, and locked. will continue to monitor pt with plan of care.
[2019-08-08 20:00] VITALS: BP 135/87
[2019-08-08] MEDS: Dyna-Hex 2% Top Sol 2oz TOPIC SCH (20:00)
--- NOTE | 2019-08-08 20:15 | Progress Note ---
DATE: 08/08/2019 CARDIOLOGY PROGRESS NOTE SUBJECTIVE: The patient remains on ventilator support. Blood pressure parameters stable. Monitored rhythm sinus and sinus bradycardia with no pauses. OBJECTIVE: VITAL SIGNS: Blood pressure 124/59, pulse 50, respirations 19, afebrile. LUNGS: Coarse breath sounds. No wheezing. CARDIAC: Regular rhythm and rate. Normal S1, S2. ABDOMEN: Soft. There is a G-tube. EXTREMITIES: No edema. LABORATORY DATA: White count 7.7, hemoglobin 9.4. Potassium 3.9. Magnesium 1.8. Pronatriuretic peptide decreased to 985. IMPRESSION: 1. Hypertensive heart disease, earlier with blood pressure lability, now much improved. 2. Dehydration and hypernatremia, resolving. 3. Mthrr-dw-rcefaci diastolic congestive heart failure, compensated. 4. Sinus node disease with asymptomatic bradycardic episodes due to increased vasovagal tone. PLAN: No role for pacemaker. Titrate antihypertensives based on clinical parameters. Long-term avoidance of drugs with negative chronotropic potential. Continue free water by G-tube. Replace electrolytes as needed. Otto Condon M.D. DR: ANDREW JOB#: [id number] CC:
--- NOTE | 2019-08-08 23:27 | NUR ---
Administered first breathing treatment at 11 and was unable to scan medication krupa and sharda helped but either one of us could get the 11am colestine labels to be scanned
[2019-08-09] VITALS: BP 140/83
--- NOTE | 2019-08-09 02:00 | NUR ---
NURSE NOTES: cleaned pt, oral care give, provided new gown, repositioned pt Q 2hrs. no active bleeding noted, no SOB noted. pt is sleeping at this time. call light within reach. will continue to monitor pt.
[2019-08-09 04:00] VITALS: BP 147/75
[2019-08-09] MEDS: Cefepime HCl 1 GM in D5W 55 ML IVPB SCH (05:54)
[2019-08-09] MEDS: HydrALAZINE 50mg tab GT SCH ×2 (05:54→14:28)
[2019-08-09] MEDS: NovoLOG Insulin Flexpen SUBQ SCH ×3 (05:56→17:44)
[2019-08-09 06:22] LABS: BASOPHILS % (AUTO) 1.2 % (0.0-2.0); EOSINOPHILS % (AUTO) 7.6 % (0.0-3.0); HEMATOCRIT 33.4 % (42.0-52.0); HEMOGLOBIN 9.7 G/DL (14.2-18.0); LYMPHOCYTES % (AUTO) 22.2 % (20.0-45.0); MEAN CORPUSCULAR VOLUME 91 FL (80-99); MONOCYTES % (AUTO) 8.5 % (1.0-10.0); NEUTROPHILS % (AUTO) 60.5 % (45.0-75.0); PLATELET COUNT 224 K/UL (150-450); RED BLOOD COUNT 3.68 M/UL (4.70-6.10); RED CELL DISTRIBUTION WIDTH 17.4 % (11.6-14.8); WHITE BLOOD COUNT 7.3 K/UL (4.8-10.8)
[2019-08-09 07:08] LABS: ANION GAP 9 mmol/L (5-15); BLOOD UREA NITROGEN 24 mg/dL (7-18); CALCIUM 8.9 MG/DL (8.5-10.1); CARBON DIOXIDE 29 MMOL/L (21-32); CHLORIDE 107 MMOL/L (98-107); CREATININE 0.8 MG/DL (0.55-1.30); POTASSIUM 3.8 MMOL/L (3.5-5.1); SODIUM 145 MMOL/L (136-145)
--- NOTE | 2019-08-09 07:16 | NUR ---
HAND-OFF: Report given to Natanael RN., and Huber RN., pt is in stable condition, endorsed plan of care.
--- NOTE | 2019-08-09 07:43 | NUR ---
NURSE NOTES: Received report from MELISA Gruber. Patient in bed resting, no active s/s cardiac, respiratory distress noticed at this time. Patient Obtundent, SB with HR 56 1st AVB, Patient trach portex 7 connected to vent AC 10 TV 500 Fio 40% PEEP 5. O2 sat 100%, GT on hold [id number], Endorsed thoracentesis schedule for today 08/09/19, consent signed by , IV on left leg 20G, asymptomatic, patent, intact, Crow Catheter draining well to gravity. Bed in lowest position, side rails upx3 padded, call light within reach, bed alarm on. Will continue to monitor.
[2019-08-09 08:00] VITALS: BP 148/76
[2019-08-09] MEDS: Pantoprazole Inj IVP SCH (08:53)
[2019-08-09] MEDS: Glimepiride 4mg tab GT SCH ×2 (08:54→17:44)
[2019-08-09] MEDS: Ascorbic Acid 500mg tab GT SCH (08:54)
[2019-08-09] MEDS: Vitamin D 1000 IU Tab GT SCH (08:54)
[2019-08-09] MEDS: Ferrous Sulfate 300 MG/5 ML UDC GT SCH (08:54)
[2019-08-09] MEDS: Lisinopril 20mg tab GT SCH (08:55)
[2019-08-09] MEDS: metFORMIN 500mg tab ORAL SCH ×2 (08:56→17:44)
[2019-08-09] MEDS: Topiramate 100mg tab GT SCH ×2 (08:57→17:36)
[2019-08-09] MEDS: levETIRAcetam 500mg/5ml Liquid GT SCH (08:57)
[2019-08-09] MEDS: Heparin 5000 units/ml inj SUBQ SCH (08:57)
[2019-08-09] MEDS: Docusate 100mg/10ml Liq GT SCH (08:58)
--- NOTE | 2019-08-09 09:15 | NUR ---
NURSE NOTES: Dr. Longo paged for K 3.2 today. Awaiting for reply
--- NOTE | 2019-08-09 09:22 | Diagnostic Imaging Report ---
Procedure: XRAY Chest 1v Reason for study: Reason of breath. Comparison films: 08/04/2019. FINDINGS: Radiograph is rotated. Tracheostomy remains in place. Right PICC line no longer visualized. Vascularity is normal. Left basilar infiltrates not significantly changed. Cardiac and mediastinal silhouette are within normal limits. No large effusion seen The bony thorax appear unremarkable. IMPRESSION: Right PICC line no longer visualized. No significant change left basilar infiltrate.
[2019-08-09] MEDS: Colistin for inhalation INH SCH (10:13)
--- NOTE | 2019-08-09 10:21 | Diagnostic Imaging Report ---
EXAM: US Chest CLINICAL HISTORY: Shortness of breath. COMPARISON: Chest x-ray 08/09/2019 FINDINGS: Targeted ultrasound examination of the chest performed to localize pleural effusion. There is no significant effusion demonstrated bilaterally. IMPRESSION: NO SIGNIFICANT EFFUSION ASSOCIATED BILATERALLY.
--- NOTE | 2019-08-09 10:48 | Pulmonolgy Critical Care Note ---
Critical Care - Asmt/Plan Problems: (1) Nosocomial pneumonia (2) Pleural effusion (3) Severe sepsis (4) Chronic respiratory failure (5) Severe anemia (6) Cellulitis of right upper extremity (7) Tracheostomy dependence (8) Contracture of joint of multiple sites (9) Diabetes mellitus (10) Vegetative state (11) Cerebrovascular accident (CVA) Respiratory: monitor respiratory rate, adjust FIO2, CXR Cardiac: continue pressors, continue to monitor HR/BP Renal: F/U I&O, keep IV fluid, check electrolytes Infectious Disease: check cultures Gastrointestinal: continue feedings/current rate Endocrine: monitor blood sugar Hematologic: monitor H/H, transfuse if hgb<8.5 Neurologic: PRN Ativan, keep patient comfortable Affect: PRN ativan Prophylaxis: Heparin Time Spent (Minutes): 40 Notes Reviewed: kitchenhand, renal Discussed with: nurses, consultants, manager of casemanager of merchandising - Objective Last 24 Hour Vital Signs Date Time Temp Pulse Resp B/P (MAP) Pulse Ox O2 Delivery O2 Flow Rate FiO2 08/09/19 08:57 56 148/76 08/09/19 08:55 148/76 08/09/19 08:00 Mechanical Ventilator 08/09/19 08:00 40 08/09/19 08:00 58 08/09/19 08:00 98.1 56 18 148/76 (100) 100 08/09/19 07:00 59 13 40 08/09/19 05:54 143/80 08/09/19 04:00 98.0 56 18 147/75 (99) 100 08/09/19 04:00 Mechanical Ventilator 08/09/19 04:00 40 08/09/19 03:29 58 08/09/19 02:58 60 18 40 08/09/19 00:00 97.7 77 18 140/83 (102) 100 08/09/19 00:00 Mechanical Ventilator 08/08/19 23:31 57 08/08/19 22:47 57 15 100 Mechanical Ventilator 40 59 15 40 08/08/19 21:32 137/76 08/08/19 20:00 98.1 77 18 135/87 (103) 100 08/08/19 20:00 Mechanical Ventilator 08/08/19 20:00 40 08/08/19 19:25 72 08/08/19 19:13 56 16 40 08/08/19 16:00 97.5 65 18 144/74 (97) 100 08/08/19 16:00 40 08/08/19 16:00 62 08/08/19 16:00 Mechanical Ventilator 08/08/19 15:07 67 15 40 08/08/19 14:32 150/70 08/08/19 12:00 40 08/08/19 12:00 52 08/08/19 12:00 97.9 60 18 146/85 (105) 100 08/08/19 12:00 Mechanical Ventilator 08/08/19 11:38 59 14 100 Mechanical Ventilator 40 55 10 40 Status: awake Condition: critical HEENT: atraumatic Neck: trach Lungs: rales, rhonchi Heart: HR/BP stable Abdomen: soft Extremities: no C/C/E Accucheck: 156 Critical Care - Subjective ROS Limited/Unobtainable: Yes Condition: critical EKG Rhythm: Sinus Rhythm FI02: 40 Vent Support Breath Rate: 10 Vent Support Mode: AC Vent Tidal Volume: 500 Sputum Amount: Small PEEP: 5.0 PIP: 28 Tube Feeding Amount: 65 I&O: Intake and Output 08/08/19 08/09/19 19:00 07:00 Intake Total 675 ml 915 ml Output Total 1500 ml 450 ml Balance -825 ml 465 ml Intake Free Water 100 ml 90 ml IV Total 55 ml 110 ml Tube Feeding 520 ml 715 ml Output Urine Total 1500 ml 450 ml Labs: Laboratory Tests Test 08/09/19 03:17 White Blood Count 7.3 K/UL (4.8-10.8) Red Blood Count 3.68 M/UL (4.70-6.10) L Hemoglobin 9.7 G/DL (14.2-18.0) L Hematocrit 33.4 % (42.0-52.0) L Mean Corpuscular Volume 91 FL (80-99) Mean Corpuscular Hemoglobin 26.2 PG (27.0-31.0) L Mean Corpuscular Hemoglobin Concent 28.9 G/DL (32.0-36.0) L Red Cell Distribution Width 17.4 % (11.6-14.8) H Platelet Count 224 K/UL (150-450) Mean Platelet Volume 9.1 FL (6.5-10.1) Neutrophils (%) (Auto) 60.5 % (45.0-75.0) Lymphocytes (%) (Auto) 22.2 % (20.0-45.0) Monocytes (%) (Auto) 8.5 % (1.0-10.0) Eosinophils (%) (Auto) 7.6 % (0.0-3.0) H Basophils (%) (Auto) 1.2 % (0.0-2.0) Sodium Level 145 MMOL/L (136-145) Potassium Level 3.8 MMOL/L (3.5-5.1) Chloride Level 107 MMOL/L (98-107) Carbon Dioxide Level 29 MMOL/L (21-32) Anion Gap 9 mmol/L (5-15) Blood Urea Nitrogen 24 mg/dL (7-18) H Creatinine 0.8 MG/DL (0.55-1.30) Estimat Glomerular Filtration Rate > 60 mL/min (>60) Glucose Level 153 MG/DL (74-106) H Calcium Level 8.9 MG/DL (8.5-10.1) Yomi Odom MD Aug 09, 2019 10:48
--- NOTE | 2019-08-09 11:16 | NUR ---
RADIOLOGY DEPT., CHEST X-RAY DONE.-P.DYE
[2019-08-09 12:00] VITALS: BP 130/71
--- NOTE | 2019-08-09 13:28 | Surgery Progress Note ---
Surgery Progress Note Subjective Symptoms: improved Additional Comments CXR US noted no fluid labs noted exam stable edema stable Objective Last 24 Hour Vital Signs Date Time Temp Pulse Resp B/P (MAP) Pulse Ox O2 Delivery O2 Flow Rate FiO2 08/09/19 12:00 97.9 58 15 130/71 (90) 100 08/09/19 12:00 59 08/09/19 12:00 40 08/09/19 12:00 Mechanical Ventilator 08/09/19 11:00 59 15 100 Mechanical Ventilator 40 60 15 40 08/09/19 08:57 56 148/76 08/09/19 08:55 148/76 08/09/19 08:00 Mechanical Ventilator 08/09/19 08:00 40 08/09/19 08:00 58 08/09/19 08:00 98.1 56 18 148/76 (100) 100 08/09/19 07:00 59 13 40 08/09/19 05:54 143/80 08/09/19 04:00 98.0 56 18 147/75 (99) 100 08/09/19 04:00 Mechanical Ventilator 08/09/19 04:00 40 08/09/19 03:29 58 08/09/19 02:58 60 18 40 08/09/19 00:00 97.7 77 18 140/83 (102) 100 08/09/19 00:00 Mechanical Ventilator 08/08/19 23:31 57 08/08/19 22:47 57 15 100 Mechanical Ventilator 40 59 15 40 08/08/19 21:32 137/76 08/08/19 20:00 98.1 77 18 135/87 (103) 100 08/08/19 20:00 Mechanical Ventilator 08/08/19 20:00 40 08/08/19 19:25 72 08/08/19 19:13 56 16 40 08/08/19 16:00 97.5 65 18 144/74 (97) 100 08/08/19 16:00 40 08/08/19 16:00 62 08/08/19 16:00 Mechanical Ventilator 08/08/19 15:07 67 15 40 08/08/19 14:32 150/70 I&O Intake and Output 08/08/19 08/09/19 19:00 07:00 Intake Total 675 ml 915 ml Output Total 1500 ml 450 ml Balance -825 ml 465 ml Intake Free Water 100 ml 90 ml IV Total 55 ml 110 ml Tube Feeding 520 ml 715 ml Output Urine Total 1500 ml 450 ml Dressing: other Wound: other Cardiovascular: RSR Respiratory: clear, decreased breath sounds Abdomen: soft, non-tender, present bowel sounds Extremities: edema, no tenderness, no cyanosis, other Laboratory Tests Test 08/09/19 03:17 White Blood Count 7.3 K/UL (4.8-10.8) Red Blood Count 3.68 M/UL (4.70-6.10) L Hemoglobin 9.7 G/DL (14.2-18.0) L Hematocrit 33.4 % (42.0-52.0) L Mean Corpuscular Volume 91 FL (80-99) Mean Corpuscular Hemoglobin 26.2 PG (27.0-31.0) L Mean Corpuscular Hemoglobin Concent 28.9 G/DL (32.0-36.0) L Red Cell Distribution Width 17.4 % (11.6-14.8) H Platelet Count 224 K/UL (150-450) Mean Platelet Volume 9.1 FL (6.5-10.1) Neutrophils (%) (Auto) 60.5 % (45.0-75.0) Lymphocytes (%) (Auto) 22.2 % (20.0-45.0) Monocytes (%) (Auto) 8.5 % (1.0-10.0) Eosinophils (%) (Auto) 7.6 % (0.0-3.0) H Basophils (%) (Auto) 1.2 % (0.0-2.0) Sodium Level 145 MMOL/L (136-145) Potassium Level 3.8 MMOL/L (3.5-5.1) Chloride Level 107 MMOL/L (98-107) Carbon Dioxide Level 29 MMOL/L (21-32) Anion Gap 9 mmol/L (5-15) Blood Urea Nitrogen 24 mg/dL (7-18) H Creatinine 0.8 MG/DL (0.55-1.30) Estimat Glomerular Filtration Rate > 60 mL/min (>60) Glucose Level 153 MG/DL (74-106) H Calcium Level 8.9 MG/DL (8.5-10.1) Plan Problems: (1) Cellulitis of right upper extremity Assessment & Plan: This is a 69-year-old male with fevers, leukocytosis, abnormal labs, right elbow cellulitis identified upper extremity. There is significant erythema edema without drainage or fluctuance. The edema is pitting and the right upper extremity does have a contracture at the level of the elbow. With gentle manipulation can slowly begin to straighten the elbow but does have overall limited movement. Plain films identified no fractures noted. No history of fall. No trauma identifiable on examination. Though this could potentially be a infectious process looks inflammatory in nature potentially dependent edema versus venous congestion. Ultrasound upper extremity will be ordered. Pillow to be placed underneath the axilla and to help elevate the elbow. Pillow placed in between the elbow to allow for some decompression. Will monitor skin closely as edema worsening and could breakdown. 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 Historical scar with hyperpigmentation Sacrum . Area of non-blanching erythema also noted at previously injured site. Base of scrotum is erythematous with partial thickness shearing. Generalized Maculopapular red rash noted. Cleanse GT site with Soap and tepid water. Apply Zinc Oxide Paste to GT site Three times daily. Apply Moisture Barrier Paste to Buttocks . Cover with Optifoam drsg. Change every 3 days and prn. Apply Moisture Barrier Paste to Scrotum with each Incontinence care. Reposition at least every 2hours or as tolerated. Off-load heels with Pillow. improving cellulitis near resolved some edema cont with current care leukocytosis resolved still with mild edema again in right elbow. likely from contraction and dependent. elevated DAILY ESTIMATED NEEDS: Needs based on DM, critical care 68kg abw 22-28 kcals/kg 5316-2183 total kcals 1.2-2 g protein/kg 81-136 g total protein 25-30 mL/kg 2645-1974 total fluid mLs NUTRITION DIAGNOSIS: 1) Swallowing difficulty r/t respiratory status as evidenced by pt is vent dep via trach, on GT feeds CURRENT TF: Glucerna 1.2 @ 65ml/hr x 20 hrs ENTERAL NUTRITION RECOMMENDATIONS: Glucerna 1.2 @ 65ml/hr x 20 hrs to provide 1300ml, 1560kcal, 78g prot, 1046ml free water - Maintain current TF as ordered - Once in stock, add prosource 1 pack QD for additional 11g prot to better meet est needs - HOB over 30 degrees/ water flush 170ml q 6hrs For continuous run x 24 hrs, rec Glucerna 1.2 @ 55ml/hr x 24 hrs to provide 1320ml, 1584kcal, 79g prot, 1063ml free water ADDITIONAL RECOMMENDATIONS: (1) Per SNF: HT=66" WA=360qcr (June 2019) (2) Monitor lytes closely, replete as needed (low phos) (3) Skin integrity: add Shoaib BID via PEG TF @ goal will provide 100% RDI Jaden Doshi Aug 09, 2019 13:28
[2019-08-09 14:21] VITALS: BP 131/61
--- NOTE | 2019-08-09 15:55 | NUR ---
CASE MANAGEMENT: DCP UPON DISCHARGE PATIENT WILL RETURN TO [id number] [phone] UNDER [facility] FAMILY TAZ JANESSA [phone] NOTIFIED OF THE PATIENT RETURNING TO [facility]. TRANSPORTATION VIA [facility] [phone] PICK TIME 17:30
[2019-08-09 16:00] VITALS: BP 134/70
--- NOTE | 2019-08-09 17:12 | NUR ---
NURSE NOTES: Called [facility] [phone], spoke with MELISA Schmidt, informed patient discharge to [facility] room 23B per Dr. Weaver. ETA [phone]. Family member Teo made aware, left message.
[2019-08-09] MEDS ORDERED: NS 275ml ONE (17:38)
--- NOTE | 2019-08-09 19:00 | NUR ---
Discharge: Patient is being discharged from medical care. Awake and responsive to pain only, obtunded. After care instructions, including referral to community resources were given. Patient unable to verbalize understanding of After care instructions; at this time patient and family members do not request medications, equipment or placement. Pt will be discharged to [facility] where the patient was transferred from. Patient is unable to sing patient consent in the medical record for patient destination upon discharge. All medical devices such as IV, court recording monitor and ID band were removed. Patient picked up by ambulance personnels and RT with vent via gurney. All reports given to ambulance personnels including the time of last meds, given finger tip glucose level and all relevant information. VSS, aferile.
--- NOTE | 2019-08-10 04:15 | Progress Note ---
DATE: 08/09/2019 CARDIOLOGY PROGRESS NOTE SUBJECTIVE: The patient remains on ventilator support, at baseline comatose state. Monitored rhythm sinus with rare abscesses with rare episodes of asymptomatic sinus bradycardia. OBJECTIVE: VITAL SIGNS: Blood pressure 131/61, heart rate 60, respiratory rate 15. ABDOMEN: Soft. LUNGS: Reveal few rhonchi. CARDIAC: Regular with no new murmur. LABORATORY AND DIAGNOSTIC DATA: Ultrasound of the chest reveals no significant pleural effusion for tap. White count 7.3, hemoglobin 9.7. Potassium 3.8. IMPRESSION: 1. Acute on chronic diastolic congestive heart failure, clinically compensated. 2. Asymptomatic sinus bradycardia. 3. Dehydration. 4. Hypernatremia, corrected. 5. Healthcare-associated pneumonia, improved. 6. Chronic ventilator dependent respiratory failure, stable. PLAN: 1. No indication for additional cardiovascular workup. 2. Stable for subacute facility on current cardiovascular regimen. Otto Condon M.D. DR: NELY JOB#: [id number] CC:
--- NOTE | 2019-08-10 08:13 | Discharge Summary ---
Discharge Summary Discharge Summary _ DATE OF ADMISSION: 07/25/2019 DATE OF DISCHARGE: 08/09/2019 DISCHARGED BY: Dr. Weaver REASON FOR ADMISSION: 69 years old male with past medical history of ventilator dependent respiratory failure, diabetes mellitus, dysphagia, feeding by G-tube, history of CVA, hypertension, seizure disorder, in vegetative state, with multiple contractures , was brought from the [facility] facility for evaluation due to low-grade fever and redness and swelling of the right elbow. Patient by himself was unable to provide any information . Patient had low-grade fever in triage. Laboratory work-up revealed no leukocytosis, hemoglobin 8.7 ,hematocrit 29.5, platelet count 169. Urinalysis revealed no evidence of urinary tract infection. Potassium 3.2. BUN 43, creatinine 1.0. Glucose 111. Lactic acid 4.3 ProBNP 934. EKG revealed sinus rhythm Albumin 2.1 Chest x-ray demonstrated retrocardiac atelectasis with tiny left pleural effusion , possible pneumonia.. In emergency room septic work-up initiated . There was a concern for possible septic joint, this orthopedic surgeon consulted. Patient received fluid bolus, pancultured, started on empiric antibiotic and admitted to stepdown unit for further management. Patient was also swabbed for COVID-19. CONSULTANTS: customer service correspondence clerk pulmonary Dr. Odom ID specialist Dr. Zambrano melter helper Dr. Gardner orthopedic surgeon Dr. Villareal [facility] COURSE: Patient admitted to stepdown unit. Patient initially was kept in isolation. Ventilator support and pulmonary toilet provided. Baseline ABG was stable on current setting . SARS COV 2 was negative on 2 occasions. Isolation discontinued. Blood cultures were negative. Sputum culture revealed Acinetobacter MDR and Proteus. Antibiotic provided as per ID specialist recommendation. Patient was followed-up with chest x-ray. Thoracentesis was planned for the pleural effusion , however chest ultrasound revealed no significant effusion bilaterally. Thoracentesis was canceled. Venous duplex right upper extremity revealed no evidence of acute DVT. X-ray of the right elbow reveal no definite acute abnormalities. Orthopedic surgeon seen and evaluated patient Per orthopedic surgeon, right elbow had fixed contraction of approximately 100 degrees with diffuse swelling and cellulitic skin. No evidence of distress with attempts at movement. The status of the joint space could not be physically evaluated due to contracture. At this time no operative intervention was warranted. Cellulitis of right elbow was improving. Patient completed antibiotic while in the hospital. Patient also received treatment for probable scabies. Aspiration precaution maintained. Tube feeding continued. DVT and GI prophylaxis provided. Stool for occult blood was negative. Hemoglobin and hematocrit were closely monitored with goal to keep hemoglobin above 7. Patient received transfusion while in the hospital. Hemoglobin and hematocrit remained at baseline after transfusion. Patient was noted to have bradycardia and episode of heart block second-degree. Impress Associate consulted. Beta-stacy stopped. Blood pressure was managed with calcium channel stacy AJAY inhibitor and hydralazine and remained stable. Per customer service correspondence clerk no need for pacemaker at this time. Telemetry shows sinus rhythm with first-degree AV block. No further episodes of second-degree block Patient received diuretic with close monitoring of volumes and cardiorenal parameters. Seizure precaution maintained. Keppra and Topamax continued. Patient clinically stabilized and was ready for transfer back to the subacute facility for continuation of care. FINAL DIAGNOSES: Severe sepsis Pneumonia Suspected COVID-19 -ruled out Bilateral pleural effusion, left more than right Chronic respiratory failure, ventilator dependent with tracheostomy status Right upper extremity elbow cellulitis Acute on chronic diastolic congestive heart failure Heart block [id number] Anemia, status post blood transfusion Diabetes mellitus History of CVA Dysphagia ,feeding by G-tube Hypertension Seizure disorder Scabies ,status post treatment Vegetative state Multiple contractures DISCHARGE MEDICATIONS: See Medication Reconciliation list. DISCHARGE INSTRUCTIONS: Patient was discharged to the [facility] facility. Follow up with medical doctor at the facility. Brittani Baptiste NP Aug 10, 2019 08:13
[2019-08-10] MEDS ORDERED: Ferrous Sulfate 300 MG/5 ML UDC GT SCH (09:00)
--- NOTE | 2019-08-11 07:15 | Discharge Summary ---
DATE OF ADMISSION: 07/25/2019 DATE OF DISCHARGE: 08/09/2019 This is one of several admissions to [facility] of this 69-year-old patient because of sepsis and COVID suspicion. HISTORY OF PRESENT ILLNESS: Because of , the patient to be admitted to this medical unit can be found in the H and P. In brief, the patient is a resident of an extended care facility subacute unit where he has been in stable condition for the last several years. He is known to have a long list of chronic medical symptoms that will be detailed in the following paragraphs, but has been stable on current medication. On the day of admission, the patient developed fever, tachycardia, and hypoxia. Sleeve Maker was called and the patient was transferred to [facility] ER. The patient was suspected COVID-19. He underwent COVID-19 test by PCR and was put in the COVID unit. HOSPITAL COURSE: Upon admission, the patient underwent clinical, biological, and imaging studies. The patient was admitted. The patient was hemodynamically stable, tachycardic, febrile. Multiple cultures were taken that include blood, sputum, and UA. The patient was started on Zosyn 3.375 g IV piggyback q.6 and vancomycin 500 mg IV piggyback q.24 hours. Multiple consultants were called to assist in management of this case that include specialist physician, Infectious Disease specialist, pressurization mechanic and biology instructor. Over the last several days, the patient's antibiotic his rectal culture grew VRE. His culture was negative to MRSA. His test for COVID-19 by PCR was negative. His blood cultures drawn on July 24 were negative as well. His sputum culture, however taken on August 05 grew Acinetobacter baumannii and Proteus mirabilis. The patient was placed on cefepime, the patient was on 1 g q.12 and vancomycin 1 g IV piggyback q.12 hours. His specialist physician prescribed Colistin 75 mg q.12 therapy. The main clinical issue since admission was the patient came with right arm cellulitis that was impressive in size, swelling, redness and tenderness. X-ray of the elbow revealed that the joint was not involved. Orthopedic window covering sales consultant excluded the possibility that the patient has septic joint. General window covering sales consultant, but this is the issue of patient and on the above-mentioned antibiotic. The patient's swelling slowly, but progressively continued diminished. He did develop bradycardia up to 43 per minute. senior [employer] consultant was called. The patient's beta-stacy and calcium channel were removed at the time of this discharge. The patient's heart rate is 61 most of the time. Today, it was about 60. It was 59 last night. The patient's antibiotic completed yesterday. He remained afebrile, hemodynamically stable without leukocytosis. He is discharged back to the extended care facility where he will be seen in 24 hours after discharge. The patient's multiple chronic medical symptoms include intracerebral hemorrhage, ventilator-dependent with tracheostomy and fed by gastrostomy tube. He has high blood pressure, hyperlipidemia, hypovitaminosis C, diabetes mellitus and seizure disorder. His blood pressure is treated by hydralazine and furosemide. His seizure is treated by levetiracetam 1500 mg q.12. His hyperlipidemia is treated by atorvastatin 10 mg daily and topiramate 200 mg b.i.d. He is on sliding scale regular insulin with metformin 1000 mg q.12 and glimepiride 4 mg b.i.d. His blood pressure is treated by lisinopril 40 mg daily and 60 mg q.6h p.r.n. for blood pressure above 160. The patient will be discharged today and will be seen in extended care facility as of 24 hours after discharge. Janette Weaver M.D. DR: BRYNN JOB#: [id number] CC:
== END 2019-08-09 19:00 | DRG 870 ==
LOC: EDBD 18:15 → EDUNIT# 18:15 → EMR 18:40 → EDBEDREQ 18:59 → 2W 19:09 → EDBEDREQ 20:32 → 2W 21:12
PROC: 02HV33Z Insertion of Infusion Device into Superior Vena Cava, Percutaneous Approach (ICD-10-PCS; principal; 2019-07-28)
PROC: B548ZZA Ultrasonography of Superior Vena Cava, Guidance (ICD-10-PCS; principal; 2019-07-28)
PROC: 5A1955Z Respiratory Ventilation, Greater than 96 Consecutive Hours (ICD-10-PCS; principal; 2019-07-28)
DX: A41.9 Sepsis, unspecified organism (principal); J18.9 Pneumonia, unspecified organism; I50.33 Acute on chronic diastolic (congestive) heart failure; G82.50 Quadriplegia, unspecified; L03.113 Cellulitis of right upper limb; J96.10 Chronic respiratory failure, unspecified whether with hypoxia or hypercapnia; Z99.11 Dependence on respirator [ventilator] status; G93.1 Anoxic brain damage, not elsewhere classified; R40.3 Persistent vegetative state; E87.0 Hyperosmolality and hypernatremia; J90 Pleural effusion, not elsewhere classified; R65.20 Severe sepsis without septic shock; I11.0 Hypertensive heart disease with heart failure; E11.9 Type 2 diabetes mellitus without complications; E78.5 Hyperlipidemia, unspecified; G40.909 Epilepsy, unspecified, not intractable, without status epilepticus; Z93.0 Tracheostomy status; Z93.1 Gastrostomy status; M24.50 Contracture, unspecified joint; D64.9 Anemia, unspecified; Z86.73 Personal history of transient ischemic attack (TIA), and cerebral infarction without residual deficits; B86 Scabies; I44.1 Atrioventricular block, second degree; R00.1 Bradycardia, unspecified; E87.6 Hypokalemia; E86.0 Dehydration; Z20.828 Contact with and (suspected) exposure to other viral communicable diseases
CPT/HCPCS: 36415; 36569; 36600; 71045; 74018; 76604; 76937; 80048; 80053; 80061; 80076; 80202; 81001; 81003; 82270; 82378; 82607; 82728; 82746; 82803; 82962; 82977; 83036; 83540; 83550; 83605; 83615; 83735; 83880; 84100; 84439; 84443; 84450; 84484; 84550; 85007; 85025; 85044; 85060; 85379; 85610; 85651; 85730; 86140; 86850; 86900; 86901; 86920; 87040; 87070; 87081; 87181; 87205; 93005; 93306; 93931; 94002; 94003; 96361; 96365; 99285; J7030; J8499